=== PATIENT | female | born 1960 | race Caucasian/White ===

== ENCOUNTER 2017-12-17 19:37 | Inpatient (IN) | payer MEDICAID, SELFPAY ==
[2017-12-17 19:38] VITALS: BP 137/96; PULSE 116; RESP 28; TEMP 37.2; O2SAT 94; BMI 33.5
[2017-12-17 19:42] VITALS: O2SAT 96
--- NOTE | 2017-12-17 20:31 | EKG12_ITS ---
Test Reason : SOB Blood Pressure : / mmHG Vent. Rate : 103 BPM Atrial Rate : 103 BPM P-R Int : 152 ms QRS Dur : 084 ms QT Int : 358 ms P-R-T Axes : 036 103 039 degrees QTc Int : 468 ms Sinus tachycardia Low voltage QRS Borderline ECG Confirmed by EMILIA ROOT MD ([id number]), script editor LUCIO HAMILTON ([id number]) on 12/19/2017 3:46:05 PM Referred By: ELENA Confirmed By:EMILIA ROOT MD
--- NOTE | 2017-12-17 20:32 | CT_ITS ---
STUDY: CTA CHEST REASON FOR EXAM: Female, 57 years old. Shortness of breath and wheezing. RADIATION DOSAGE (If Supplied By Facility): CTDIvol = ( 17.96 ) mGy, DLP = ( 614.86 ) mGycm TECHNIQUE: The examination was performed with the intravenous administration of 75ML ml of Isovue 370 contrast material. Post-processing of the angiographic images was performed, with multiplanar reformation and 3D reconstruction. Individualized dose optimization techniques were used for this CT. COMPARISON: None. FINDINGS: Normal enhancement of the main pulmonary artery and right and left pulmonary arteries. Normal enhancement of the bilateral peripheral pulmonary arteries. There is no demonstrated pulmonary embolism. Normal thoracic aorta and visualized great vessels. There is no demonstrated aortic dissection. There are calcifications of the coronary arteries. Normal mediastinum. Normal hilar regions. Normal visualized trachea and bronchi. The lungs are hyper expanded, with flattening of the hemidiaphragms. Diffuse COPD related changes are present. Normal pleura. Normal chest wall structures. There are degenerative changes of thoracic spine. Normal visualized upper abdomen. CT/CTA Chest W/WO Contrast IMPRESSION: 1. No evidence of pulmonary embolism or aortic dissection. 2. Diffuse COPD changes with no evidence of focal consolidation. Electronically Signed: Tyrese Fajardo DO at 22:01 EDT , Service support ,
[2017-12-17 20:42] VITALS: BP 114/94; PULSE 108; RESP 22; O2SAT 95
[2017-12-17 20:55] LABS: Absolute Lymphocyte Count 0.95 X10^3/ul (0.83-4.51); Absolute Neutrophil Count 6.4 X10^3/uL (2.0-7.7); Basophil# 0.01 X10^3/uL; Basophil% 0.1 % (0-1); Eosinophil# 0.02 X10^3/uL; Eosinophils% 0.3 % (0-5); Hematocrit 36.7 % (37-47); Hemoglobin 11.9 g/dl (12.0-15.0); Lymphocyte # 0.95 X10^3/ul (4.0); Lymphocyte % 11.9 % (19-41); Mean Corp Hgb Conc 32.4 g/gl (32-36); Mean Corpuscular Volume 98.7 fL (81-99); Monocyte# 0.56 X10^3/uL; Neutrophil # 6.36 X10^3/uL (2.7-7.7); Neutrophil % 79.7 % (47-70); POSITIVE COUNT NO; POSITIVE DIFFERENTIAL NO; POSITIVE MORPHOLOGY NO; Platelet Count 200 K/mm3 (150-450); RBC Distribution Width CV 15.5 % (11.6-14.6); RBC Distribution Width SD 56.3 fl (35.1-43.9); Red Blood Count 3.72 M/mm3 (4.2-5.4)
[2017-12-17 21:04] LABS: International Normalized Ratio 0.9; Prothrombin Time (Protime)PT. 12.3 SECONDS (11.7-14.9)
[2017-12-17 21:17] LABS: Anion Gap 8 (5-15); BUN 14 mg/dL (7-18); BUN/Creat Ratio 14.3 RATIO (10-20); Chloride 109 mmol/L (98-107); Creatinine, Serum 0.98 mg/dL (0.55-1.02); EST Glomerular Filtration Rate 63 mL/min (>60); Est Glom Filt Rate - Afr Amer 76 mL/min (>60); Estimated Creatinine Clearance 48.94 ml/min; Glucose 166 mg/dL (74-106); Sodium Level 142 mmol/L (136-145)
[2017-12-17 21:51] VITALS: BP 130/89; PULSE 106; RESP 20; O2SAT 94
--- NOTE | 2017-12-17 22:15 | ED.VISSUMM ---
- ER Visit Summary Date of Service: 12/17/17 Chief Complaint: Shortness of breath and wheezing History of Present Illness: The patient is a 57 F who presents with shortness of breath and wheezing. She has been ill with a URI-like illness for about 1 month. She can planes of congestion rhinorrhea and nonproductive cough. She does have a history of COPD. She also has a history of CML and pulmonary embolism. She states she became acutely more short of breath about 2 hours prior to presentation. She has been on 3 rounds of prednisone and 2 different antibiotics in the last month. She last completed prednisone about 3 days ago. She denies any improvement. No fevers or vomiting. No chest pain. Physical Examination: Heart rate 116 respiratory rate 28 pulse ox 94% on 3 L Heart is regular rhythm tachycardia Patient is tachypneic with expiratory wheezing but does not have retractions and is not in distress Abdomen soft Alert Test Results: EKG shows sinus rhythm at a rate of 103. Laboratory studies essentially unremarkable. CTA of the chest was obtained which shows no evidence of PE or aortic dissection. Emergency Department Course and Treatment: Patient was given IV Solu-Medrol and oral doxycycline. She was given a DuoNeb. Concerned given that she has failed multiple attempts at outpatient treatment. Therefore I did feel she should be hospitalized. Treatment Plan: [] Disposition: Admit Impression: COPD exacerbation, failed outpatient treatment This note was generated with [employer] dictation software. It may contain incorrect words, spelling, and punctuation that were not noted in review of the chart prior to signing ED Disposition - Plan for ED Patient: Chief Complaint: Shortness of Breath Referrals: Jennifer Coelho NP-C [Primary Care Provider] -
[2017-12-17] MEDS: MethylPREDNISolone 125 MG/2 ML Vial IV (22:26)
[2017-12-17] MEDS: Doxycycline 100 MG CAPSULE PO (22:26)
[2017-12-17 22:29] VITALS: BP 134/98; PULSE 102; RESP 20; O2SAT 95
--- NOTE | 2017-12-17 22:35 | PCM.HP.STD ---
Problem List (1) HTN (hypertension) Status: Chronic (2) Fibromyalgia Status: Chronic (3) Nicotine abuse Status: Chronic (4) AYERS (dyspnea on exertion) Status: Acute (5) COPD with acute exacerbation Status: Acute (6) Poor compliance with medication Status: Chronic (7) Depression Status: Chronic (8) History of cardiac cath Status: Acute (9) History of cranial surgery Status: Acute Comment: due to closed fontanell (10) History of hysterectomy Status: Acute (11) History of hemorrhoidectomy Status: Acute (12) cataract surgery Status: Acute History of Present Illness Date of Admission: 12/17/17 Chief Complaint: shortness of breath The patient is a 57 year old female with a history of COPD presents to the ER with acute shortness of breath. She has been treated three times this past month with antibiotics and steroids for the same complaint. She , despite being on 3liters of home oxygen presented breathing at 28 times per minute. CTA was negative for PE. She is afebrile. Her laboratory studies are unremarkable. She has improved with breathing treatment, steroids and increased oxygen concentration. She will be admitted for further respiratory management. Past Medical History Past Medical History (Chronic Problems): Chronic Problems (Last Reviewed 11/29/17 @ 13:20 by Bridget Hernandez NP-C) HTN (hypertension) (Chronic) Fibromyalgia (Chronic) Nicotine abuse (Chronic) Sinusitis (Chronic) Seasonal allergies (Chronic) Stage 3 severe COPD by GOLD classification (Chronic) Chronic hypoxemic respiratory failure (Chronic) Ulcerative colitis (Chronic) Hx of smoking (Chronic) Fibromyalgia (Chronic) Mid back pain (Chronic) Carpal tunnel syndrome (Chronic) COPD (chronic obstructive pulmonary disease) (Chronic) Chronic respiratory failure, unspecified whether with hypoxia or hypercapnia (Chronic) Obesity (BMI 30.0-34.9) (Chronic) Poor compliance with medication (Chronic) CML (chronic myelocytic leukemia) (Chronic) DREW (generalized anxiety disorder) (Chronic) Emphysema of lung (Chronic) Depression (Chronic) Leukemia (Chronic) Allergies Penicillins Allergy (Severe, Verified 11/07/17 11:36) Hives azithromycin Adverse Reaction (Severe, Verified 11/07/17 11:36) Diarrhea codeine Adverse Reaction (Severe, Verified 11/07/17 11:36) Vomiting ondansetron HCl [From Zofran (as hydrochloride)] Adverse Reaction (Severe, Verified 11/07/17 11:36) Nausea pregabalin [From Lyrica] Adverse Reaction (Severe, Verified 11/07/17 11:36) i can't see propoxyphene napsylate [From Darvocet-N 100] Adverse Reaction (Severe, Verified 11/07/17 11:36) Vomiting Sulfa (Sulfonamide Antibiotics) Adverse Reaction (Verified 11/07/17 11:36) Abd cramps/diarrhea Home Medications: Ambulatory Orders Medication Instructions Recorded Albuterol Inhaler [Ventolin Hfa] 2 puff INHALATION Q4H 10/01/15 Albuterol Aerosols [Ventolin 2.5 mg INHALATION Q4H PRN PRN #100 12/09/15 Aerosols] vial.neb. NS BusPIRone [Buspar] 15 mg PO BID 01/29/16 Potassium Chloride [K-Dur] 20 meq PO BID 05/18/16 Budesonide/Formoterol 160/4.5 2 puff INHALATION BID 08/11/16 [Symbicort 160/4.5 Mcg Inhaler (SP)] Fluticasone 0.05% [Flonase Nasal 1 spray NASAL BID 08/11/16 [place]] ALPRAZolam [Xanax] 0.5 - 1 mg PO Q6H PRN 11/23/16 Oxycodone [Oxyir] 5 mg PO Q4H PRN PRN #20 tab 11/27/16 Ipratropium/Albuterol Sulfate 3 ml INHALATION Q6HWA.RT PRN 02/01/17 [Duoneb] Cetirizine HCl [Zyrtec] 10 mg PO DAILY 06/18/17 Diltiazem CD [Cardizem CD] 240 mg PO DAILY 06/18/17 Sertraline HCl [Zoloft] 75 mg PO DAILY 06/18/17 Prochlorperazine Maleate 10 mg PO Q6H PRN PRN #30 tab 07/25/17 Tiotropium [place] [Spiriva 4 gm IH DAILY 07/25/17 Respimat] Ibuprofen [Ibuprofen Ib] 200 mg PO Q6H PRN 08/22/17 Imatinib Mesylate [Gleevec] 400 mg PO DAILY 08/22/17 Furosemide [Lasix] 20 mg PO DAILY 09/19/17 Prednisone [Deltasone] 40 mg PO DAILY 09/19/17 prednisone 10 mg tablet 10 mg PO QDAY #30 tab 11/29/17 Surgical History: hysterectomy, - - Hemorrhoidectomy, 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 Psychiatric History: Anxiety 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 Denies: Cough, Sputum production Gastrointestinal: Denies: Abdominal Pain, Nausea, Vomiting Genitourinary: Denies: Dysuria Musculoskeletal: Denies: Joint Pain, Joint Tenderness Skin: Denies: Rash, Wounds Neurological: Denies: Numbness, Tingling, Focal weakness Psychiatric: Reports: Anxiety. Denies: Depression, Homicidal Ideations, Suicidal Ideations Hematologic/ Lymphatic: Denies: Easy Bruising, Easy Bleeding VTE Information - Inpt Only VTE Present on Admission: No VTE Mechan Device Prophylaxis: None VTE Pharm Prophylaxis ordered?: Yes - Physical Exam General: Alert, Oriented x3, Cooperative HEENT: Atraumatic, Normocephalic Neck: Supple Lungs: No rhonchi, No rales, Diminished, Tachypneic, Wheezes Cardiovascular: Regular rate, Normal S1, Normal S2, No murmurs, Tachycardic Abdomen: Bowel Sounds Present, Soft, Non Tender, Obese Extremities: No edema Skin: No rashes Musculoskeletal: No Tenderness to Palpation of Joints or Extremities Neurological: Neuro grossly intact Psych/Mental Status: Normal Affect, Appropriate Vital Signs Temp Pulse Resp BP Pulse Ox 99.0 F 102 H 20 H 134/98 H 95 12/17/17 19:38 12/17/17 22:29 12/17/17 22:29 12/17/17 22:29 12/17/17 22:29 Oxygen Flow Rate (L/min) 3 Oxygen Delivery Method Nasal Cannula Weight: 177 lb 5.79 oz Body Mass Index (BMI) 33.5 Laboratory Tests Past 24 Hrs 12/17/17 12/17/17 12/17/17 20:45 20:45 20:45 WBC 8.0 RBC 3.72 L Hgb 11.9 L Hct 36.7 L MCV 98.7 MCH 32.0 MCHC 32.4 RDW 15.5 H RDW Differential 56.3 H Plt Count 200 MPV 10.0 Immature Gran % (Auto) 1.000 H Neut % (Auto) 79.7 H Lymph % (Auto) 11.9 L [place] % (Auto) 7.0 Eos % (Auto) 0.3 Baso % (Auto) 0.1 Absolute Neuts (auto) 6.4 Absolute Lymphs (auto) 0.95 Total Counted Not Reportable PT 12.3 INR 0.9 Sodium 142 Potassium 4.0 Chloride 109 H Carbon Dioxide 25.0 Anion Gap 8 BUN 14 Creatinine 0.98 Estim Creat Clear Calc 48.94 Est GFR (MDRD) Af Amer 76 Est GFR (MDRD) Non-Af 63 BUN/Creatinine Ratio 14.3 Glucose 166 H Calcium 8.0 L Troponin I < 0.02 Assessment/Plan Chronic Problems (Last Reviewed 11/29/17 @ 13:20 by Bridget Hernandez, HAND PLEATER-C) HTN (hypertension) (Chronic) Fibromyalgia (Chronic) Nicotine abuse (Chronic) Sinusitis (Chronic) Seasonal allergies (Chronic) Stage 3 severe COPD by GOLD classification (Chronic) Chronic hypoxemic respiratory failure (Chronic) Ulcerative colitis (Chronic) Hx of smoking (Chronic) Fibromyalgia (Chronic) Mid back pain (Chronic) Carpal tunnel syndrome (Chronic) COPD (chronic obstructive pulmonary disease) (Chronic) Chronic respiratory failure, unspecified whether with hypoxia or hypercapnia (Chronic) Obesity (BMI 30.0-34.9) (Chronic) Poor compliance with medication (Chronic) CML (chronic myelocytic leukemia) (Chronic) DREW (generalized anxiety disorder) (Chronic) Emphysema of lung (Chronic) Depression (Chronic) Leukemia (Chronic) Acute condition - COPD exacerbation - plan admit to general medical floor - DuoNeb inh q 4hrs, Solumedrol 40mg iv q 6hrs, doxycycline 100mg bid - consult Dr Ridley in am (pt known to him) - CBC, BMP in am - continue routine home medications - LMWH for DVT prophylaxis - Oxygen per routine Code Visit Inpatient E&M: 21672 Init Hosp L3
--- NOTE | 2017-12-17 22:45 | HP.PCM_ITS ---
Problem List (1) HTN (hypertension) Status: Chronic (2) Fibromyalgia Status: Chronic (3) Nicotine abuse Status: Chronic (4) AYERS (dyspnea on exertion) Status: Acute (5) COPD with acute exacerbation Status: Acute (6) Poor compliance with medication Status: Chronic (7) Depression Status: Chronic (8) History of cardiac cath Status: Acute (9) History of cranial surgery Status: Acute Comment: due to closed fontanell (10) History of hysterectomy Status: Acute (11) History of hemorrhoidectomy Status: Acute (12) cataract surgery Status: Acute History of Present Illness Date of Admission: 12/17/17 Chief Complaint: shortness of breath The patient is a 57 year old female with a history of COPD presents to the ER with acute shortness of breath. She has been treated three times this past month with antibiotics and steroids for the same complaint. She , despite being on 3liters of home oxygen presented breathing at 28 times per minute. CTA was negative for PE. She is afebrile. Her laboratory studies are unremarkable. She has improved with breathing treatment, steroids and increased oxygen concentration. She will be admitted for further respiratory management. Past Medical History Past Medical History (Chronic Problems): Chronic Problems (Last Reviewed 11/29/17 @ 13:20 by Bridget Hernandez NP-C) HTN (hypertension) (Chronic) Fibromyalgia (Chronic) Nicotine abuse (Chronic) Sinusitis (Chronic) Seasonal allergies (Chronic) Stage 3 severe COPD by GOLD classification (Chronic) Chronic hypoxemic respiratory failure (Chronic) Ulcerative colitis (Chronic) Hx of smoking (Chronic) Fibromyalgia (Chronic) Mid back pain (Chronic) Carpal tunnel syndrome (Chronic) COPD (chronic obstructive pulmonary disease) (Chronic) Chronic respiratory failure, unspecified whether with hypoxia or hypercapnia ( Chronic) Obesity (BMI 30.0-34.9) (Chronic) Poor compliance with medication (Chronic) CML (chronic myelocytic leukemia) (Chronic) DREW (generalized anxiety disorder) (Chronic) Emphysema of lung (Chronic) Depression (Chronic) Leukemia (Chronic) Allergies Penicillins Allergy (Severe, Verified 11/07/17 11:36) Hives azithromycin Adverse Reaction (Severe, Verified 11/07/17 11:36) Diarrhea codeine Adverse Reaction (Severe, Verified 11/07/17 11:36) Vomiting ondansetron HCl [From Zofran (as hydrochloride)] Adverse Reaction (Severe, Verified 11/07/17 11:36) Nausea pregabalin [From Lyrica] Adverse Reaction (Severe, Verified 11/07/17 11:36) i can't see propoxyphene napsylate [From Darvocet-N 100] Adverse Reaction (Severe, Verified 11/07/17 11:36) Vomiting Sulfa (Sulfonamide Antibiotics) Adverse Reaction (Verified 11/07/17 11:36) Abd cramps/diarrhea Home Medications: Ambulatory Orders Medication Instructions Recorded Albuterol Inhaler [Ventolin Hfa] 2 puff INHALATION Q4H 10/01/15 Albuterol Aerosols [Ventolin 2.5 mg INHALATION Q4H PRN PRN #100 12/09/15 Aerosols] vial.neb. NS BusPIRone [Buspar] 15 mg PO BID 01/29/16 Potassium Chloride [K-Dur] 20 meq PO BID 05/18/16 Budesonide/Formoterol 160/4.5 2 puff INHALATION BID 08/11/16 [Symbicort 160/4.5 Mcg Inhaler (SP)] Fluticasone 0.05% [Flonase Nasal 1 spray NASAL BID 08/11/16 [place]] ALPRAZolam [Xanax] 0.5 - 1 mg PO Q6H PRN 11/23/16 Oxycodone [Oxyir] 5 mg PO Q4H PRN PRN #20 tab 11/27/16 Ipratropium/Albuterol Sulfate 3 ml INHALATION Q6HWA.RT PRN 02/01/17 [Duoneb] Cetirizine HCl [Zyrtec] 10 mg PO DAILY 06/18/17 Diltiazem CD [Cardizem CD] 240 mg PO DAILY 06/18/17 Sertraline HCl [Zoloft] 75 mg PO DAILY 06/18/17 Prochlorperazine Maleate 10 mg PO Q6H PRN PRN #30 tab 07/25/17 Tiotropium [place] [Spiriva 4 gm IH DAILY 07/25/17 Respimat] Ibuprofen [Ibuprofen Ib] 200 mg PO Q6H PRN 08/22/17 Imatinib Mesylate [Gleevec] 400 mg PO DAILY 08/22/17 Furosemide [Lasix] 20 mg PO DAILY 09/19/17 Prednisone [Deltasone] 40 mg PO DAILY 09/19/17 prednisone 10 mg tablet 10 mg PO QDAY #30 tab 11/29/17 Surgical History: hysterectomy, - - Hemorrhoidectomy, 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 Psychiatric History: Anxiety 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 Denies: Cough, Sputum production Gastrointestinal: Denies: Abdominal Pain, Nausea, Vomiting Genitourinary: Denies: Dysuria Musculoskeletal: Denies: Joint Pain, Joint Tenderness Skin: Denies: Rash, Wounds Neurological: Denies: Numbness, Tingling, Focal weakness Psychiatric: Reports: Anxiety. Denies: Depression, Homicidal Ideations, Suicidal Ideations Hematologic/ Lymphatic: Denies: Easy Bruising, Easy Bleeding VTE Information - Inpt Only VTE Present on Admission: No VTE Mechan Device Prophylaxis: None VTE Pharm Prophylaxis ordered?: Yes - Physical Exam General: Alert, Oriented x3, Cooperative HEENT: Atraumatic, Normocephalic Neck: Supple Lungs: No rhonchi, No rales, Diminished, Tachypneic, Wheezes Cardiovascular: Regular rate, Normal S1, Normal S2, No murmurs, Tachycardic Abdomen: Bowel Sounds Present, Soft, Non Tender, Obese Extremities: No edema Skin: No rashes Musculoskeletal: No Tenderness to Palpation of Joints or Extremities Neurological: Neuro grossly intact Psych/Mental Status: Normal Affect, Appropriate Vital Signs Temp Pulse Resp BP Pulse Ox 99.0 F 102 H 20 H 134/98 H 95 12/17/17 19:38 12/17/17 22:29 12/17/17 22:29 12/17/17 22:29 12/17/17 22:29 Oxygen Flow Rate (L/min) 3 Oxygen Delivery Method Nasal Cannula Weight: 177 lb 5.79 oz Body Mass Index (BMI) 33.5 Laboratory Tests Past 24 Hrs 12/17/17 12/17/17 12/17/17 20:45 20:45 20:45 WBC 8.0 RBC 3.72 L Hgb 11.9 L Hct 36.7 L MCV 98.7 MCH 32.0 MCHC 32.4 RDW 15.5 H RDW Differential 56.3 H Plt Count 200 MPV 10.0 Immature Gran % (Auto) 1.000 H Neut % (Auto) 79.7 H Lymph % (Auto) 11.9 L [place] % (Auto) 7.0 Eos % (Auto) 0.3 Baso % (Auto) 0.1 Absolute Neuts (auto) 6.4 Absolute Lymphs (auto) 0.95 Total Counted Not Reportable PT 12.3 INR 0.9 Sodium 142 Potassium 4.0 Chloride 109 H Carbon Dioxide 25.0 Anion Gap 8 BUN 14 Creatinine 0.98 Estim Creat Clear Calc 48.94 Est GFR (MDRD) Af Amer 76 Est GFR (MDRD) Non-Af 63 BUN/Creatinine Ratio 14.3 Glucose 166 H Calcium 8.0 L Troponin I < 0.02 Assessment/Plan Chronic Problems (Last Reviewed 11/29/17 @ 13:20 by Bridget Hernandez, TOURIST AGENT-C) HTN (hypertension) (Chronic) Fibromyalgia (Chronic) Nicotine abuse (Chronic) Sinusitis (Chronic) Seasonal allergies (Chronic) Stage 3 severe COPD by GOLD classification (Chronic) Chronic hypoxemic respiratory failure (Chronic) Ulcerative colitis (Chronic) Hx of smoking (Chronic) Fibromyalgia (Chronic) Mid back pain (Chronic) Carpal tunnel syndrome (Chronic) COPD (chronic obstructive pulmonary disease) (Chronic) Chronic respiratory failure, unspecified whether with hypoxia or hypercapnia ( Chronic) Obesity (BMI 30.0-34.9) (Chronic) Poor compliance with medication (Chronic) CML (chronic myelocytic leukemia) (Chronic) DREW (generalized anxiety disorder) (Chronic) Emphysema of lung (Chronic) Depression (Chronic) Leukemia (Chronic) Acute condition - COPD exacerbation - plan admit to general medical floor - DuoNeb inh q 4hrs, Solumedrol 40mg iv q 6hrs, doxycycline 100mg bid - consult Dr Ridley in am (pt known to him) - CBC, BMP in am - continue routine home medications - LMWH for DVT prophylaxis - Oxygen per routine Code Visit Inpatient E&M: 19880 Init Hosp L3
[2017-12-18] VITALS (11 sets, daily range): BP systolic 104–134; BP diastolic 71–93; PULSE 99–118; RESP 16–20; TEMP 36.7–37.2; O2SAT 94–99; BMI 34.4
[2017-12-18] MEDS: ALPRAZolam 0.5 MG Tablet PO ×4 (01:00→22:33)
[2017-12-18] MEDS: Ipratropium/Albuterol Sulfate 3 ML AMPUL.NEB INHALATION ×5 (03:00→18:58)
[2017-12-18] MEDS: 0.9% NaCl Peripheral Flush Adult/Peds IV ×3 (05:03→22:05)
[2017-12-18 05:38] LABS: Absolute Lymphocyte Count 0.54 X10^3/ul (0.83-4.51); Absolute Neutrophil Count 7.9 X10^3/uL (2.0-7.7); Basophil# 0.01 X10^3/uL; Basophil% 0.1 % (0-1); Hematocrit 36.4 % (37-47); Hemoglobin 11.8 g/dl (12.0-15.0); Lymphocyte # 0.54 X10^3/ul (4.0); Lymphocyte % 6.3 % (19-41); Mean Corp Hgb Conc 32.4 g/gl (32-36); Mean Corpuscular Hgb 32.3 pg (27.0-32.0); Mean Corpuscular Volume 99.7 fL (81-99); Mean Platelet Vol. 9.3 fl (6.2-12.0); Monocyte# 0.06 X10^3/uL; Monocyte% 0.7 % (0-10); Neutrophil # 7.85 X10^3/uL (2.7-7.7); Neutrophil % 92.2 % (47-70); Platelet Count 187 K/mm3 (150-450); RBC Distribution Width CV 15.1 % (11.6-14.6); RBC Distribution Width SD 53.6 fl (35.1-43.9); Red Blood Count 3.65 M/mm3 (4.2-5.4); White Blood Count 8.5 K/mm3 (4.4-11.0)
[2017-12-18 05:50] LABS: Differential Indicated SCAN CRITERIA MET; POSITIVE COUNT NO; POSITIVE DIFFERENTIAL YES; POSITIVE MORPHOLOGY NO
[2017-12-18 07:40] LABS: AST(SGOT) 10 U/L (15-37); Alanine Aminotransfer ALT/SGPT 16 U/L (13-56); Albumin, Serum 2.9 g/dL (3.2-5.0); Alkaline Phosphatase 68 U/L (45-117); Anion Gap 11 (5-15); BUN 11 mg/dL (7-18); BUN/Creat Ratio 12.3 RATIO (10-20); Calcium,Total 7.5 mg/dL (8.5-10.1); Chloride 109 mmol/L (98-107); Creatinine, Serum 0.89 mg/dL (0.55-1.02); EST Glomerular Filtration Rate 70 mL/min (>60); Est Glom Filt Rate - Afr Amer 84 mL/min (>60); Estimated Creatinine Clearance 53.89 ml/min; Globulin 2.9 g/dL (2.2-4.2); Glucose 213 mg/dL (74-106); Potassium 3.9 mmol/L (3.5-5.1); Protein, Total 5.8 g/dL (6.4-8.2); Sodium Level 143 mmol/L (136-145)
--- NOTE | 2017-12-18 08:27 | CON.PCM_ITS ---
Problem List (1) COPD with acute exacerbation Status: Acute (2) Chronic hypoxemic respiratory failure Status: Acute (3) HTN (hypertension) Status: Chronic (4) Nicotine abuse Status: Chronic (5) Stage 3 severe COPD by GOLD classification Status: Chronic (6) Fibromyalgia Status: Chronic (7) Seasonal allergies Status: Chronic (8) Ulcerative colitis Status: Chronic (9) CML (chronic myelocytic leukemia) Status: Chronic (10) DREW (generalized anxiety disorder) Status: Chronic (11) Depression Status: Chronic Reason for Consult Date of Consultation: 12/18/17 Reason for Consultation: COPD exacerbation, failed outpatient therapy History of Present Illness: The patient is a 57 year old F with a past medical history as below, well known to the pulmonary clinic and Dr. Ridley, presented to the ER via EMS on 12/17/17 with complaints of increased shortness of breath. Patient has been somewhat ill for the last 1 month with upper respiratory symptoms and was last seen in the pulmonary clinic on 11/29/17 for COPD exacerbation. Previously she was placed on Solu-Cortef and antibiotics from her Palliative Care provider. She is on a maintenance dose of 10 mg of prednisone for her severe COPD. She was placed on a taper with some improvement, but felt worse a few days after its completion. Over the last 24-48 hours, she has been increasingly short of breath especially with exertion. Current inhaler regimen includes Symbicort, Spiriva, DuoNeb aerosols, PRN albuterol nebulizers, and chronic prednisone of 10 mg daily. Patient denies any recent sick contacts. She denies fevers, chills or night sweats. No hemoptysis. She does complain of increased sputum production of clear to yellow. She has had some nausea with no vomiting. She denies any increase in edema and notes she takes Lasix if she becomes too puffy. On presentation to the emergency department, the patient was noted to be afebrile ( 99.0?F), tachycardic and hemodynamically stable. She was maintaining saturations at 94% on her baseline oxygen requirement of 3L/NC. Patient is on oral chemo regimen for chronic myelocytic leukemia. Initial laboratory evaluation revealed no leukocytosis. Patient is slightly anemic with a hemoglobin of 11.8 and hematocrit 36.4. ANC 7.9. Chemistry profile revealed a levator chloride 109 and glucose of 213 with calcium of 7.5. Troponin was negative. Albumin low at 2.9. CTA of the chest revealed no evidence of PE or dissection, there was diffuse COPD changes with no evidence of focal consolidation. While in the emergency department, the patient received aerosol treatments, IV steroids and antibiotics. She was subsequently admitted to the medical-surgical unit for ongoing management. The patient's last surface echocardiogram completed in February 2016 revealed normal LV size and function with an ejection fraction of 55%. Pulmonary artery systolic pressure was estimated to be 32 mmHg. Patient's last PFTs were done in July 2017: FVC is 74 % of predicted, FEV1 is 44 % of predicted, FEV1/FVC is 47% of predicted. Her last appointment with her palliative care physician was on 11/27/17. Her Claritin was changed to Singulair secondary to rhinorrhea, noted likely side effect of Gleevec. Benadryl was also added. Past Medical History Past Medical History (Chronic Problems): Chronic Problems (Last Updated 12/18/17 @ 09:44 by Ivon Woodwrad, [employer]) HTN (hypertension) (Chronic) Fibromyalgia (Chronic) Nicotine abuse (Chronic) Sinusitis (Chronic) Seasonal allergies (Chronic) Stage 3 severe COPD by GOLD classification (Chronic) Ulcerative colitis (Chronic) Hx of smoking (Chronic) Mid back pain (Chronic) Carpal tunnel syndrome (Chronic) Obesity (BMI 30.0-34.9) (Chronic) Poor compliance with medication (Chronic) Educational circumstance (Chronic) CML (chronic myelocytic leukemia) (Chronic) DREW (generalized anxiety disorder) (Chronic) Emphysema of lung (Chronic) Depression (Chronic) History of cardiac cath (Chronic) 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 History of hysterectomy (Chronic) History of hemorrhoidectomy (Chronic) cataract surgery (Chronic) Allergies Penicillins Allergy (Severe, Verified 11/07/17 11:36) Hives azithromycin Adverse Reaction (Severe, Verified 11/07/17 11:36) Diarrhea codeine Adverse Reaction (Severe, Verified 11/07/17 11:36) Vomiting ondansetron HCl [From Zofran (as hydrochloride)] Adverse Reaction (Severe, Verified 11/07/17 11:36) Nausea pregabalin [From Lyrica] Adverse Reaction (Severe, Verified 11/07/17 11:36) i can't see propoxyphene napsylate [From Darvocet-N 100] Adverse Reaction (Severe, Verified 11/07/17 11:36) Vomiting Sulfa (Sulfonamide Antibiotics) Adverse Reaction (Verified 11/07/17 11:36) Abd cramps/diarrhea Home Medications: Ambulatory Orders Medication Instructions Recorded Albuterol Inhaler [Ventolin Hfa] 2 puff INHALATION Q4H 10/01/15 Albuterol Aerosols [Ventolin 2.5 mg INHALATION Q4H PRN PRN #100 12/09/15 Aerosols] vial.neb. NS BusPIRone [Buspar] 15 mg PO BID 01/29/16 Potassium Chloride [K-Dur] 20 meq PO BID 05/18/16 Budesonide/Formoterol 160/4.5 2 puff INHALATION BID 08/11/16 [Symbicort 160/4.5 Mcg Inhaler (SP)] Fluticasone 0.05% [Flonase Nasal 1 spray NASAL BID 08/11/16 [place]] ALPRAZolam [Xanax] 0.5 - 1 mg PO Q6H PRN 11/23/16 Oxycodone [Oxyir] 5 mg PO Q4H PRN PRN #20 tab 11/27/16 Ipratropium/Albuterol Sulfate 3 ml INHALATION Q6HWA.RT PRN 02/01/17 [Duoneb] Cetirizine HCl [Zyrtec] 10 mg PO DAILY 06/18/17 Diltiazem CD [Cardizem CD] 240 mg PO DAILY 06/18/17 Sertraline HCl [Zoloft] 75 mg PO DAILY 06/18/17 Prochlorperazine Maleate 10 mg PO Q6H PRN PRN #30 tab 07/25/17 Tiotropium [place] [Spiriva 4 gm IH DAILY 07/25/17 Respimat] Ibuprofen [Ibuprofen Ib] 200 mg PO Q6H PRN 08/22/17 Imatinib Mesylate [Gleevec] 400 mg PO DAILY 08/22/17 Furosemide [Lasix] 20 mg PO DAILY PRN 09/19/17 Prednisone [Deltasone] 40 mg PO DAILY 09/19/17 prednisone 10 mg tablet 10 mg PO QDAY #30 tab 11/29/17 Surgical History: hysterectomy, - - Hemorrhoidectomy, 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 Psychiatric History: Anxiety SENIOR MATERIALS PLANNER History: No pertinent SENIOR MATERIALS PLANNER history Lives: Alone, - - has HH Smoking Status: Former smoker Tobacco Use: Non-smoker Alcohol: None Drugs: None - *Family History Maternal History Items: - - mother with ovarian cancer; denies family history of any blood disorders or blood cancers Paternal History Items: Diabetes, - - father was exposed from agent orange Review of Systems Constitutional: Reports: Weakness, Weight Change - gained 20# in last 2 years, Fatigue. Denies: Anorexia, Chills, Fever, Night Sweats, Malaise Eyes: Denies: Blurred vision, Conjunctivae Inflammation, Redness, Vision Change HEENT: Reports: Nasal Congestion, Post Nasal Drip, Sinus Congestion, Sinus Drainage. Denies: Difficulty Hearing, Difficulty Swallowing, Dysphasia, Head Aches, Nasal bleeding, Sore Throat Cardiovascular: Reports: Orthopnea. Denies: Chest Pain, Chest Tightness, Edema , Light Headedness, Palpitations, Paroxysmal Noc. Dyspnea, Syncope Respiratory: Reports: Cough, Shortness of breath at rest, Shortness of breath upon exertion, Sputum production - clear to yellow, Wheezing. Denies: Hemoptysis Gastrointestinal: Reports: Nausea. Denies: Abdominal Pain, Constipation, Diarrhea, Dyspepsia, Hematemesis, Hematochezia, Melena, Vomiting Genitourinary: Denies: Dysuria, Frequency, Hematuria, Retention Gynecological: Denies: Breast symptoms Musculoskeletal: Reports: Back Pain - Chronic, Muscle pain - Chronic, fibromyalgia. Denies: Neck Pain Skin: Denies: Dryness, Pruritis, Rash, Wounds Neurological: Denies: Balance problems, Change in Speech, Confusion, Difficulty swallowing, Focal weakness, Headaches, Numbness, Tingling, Tremor, Seizures Psychiatric: Reports: Anxiety, Depression. Denies: Suicidal Ideations Endocrine: Denies: Change in Body Habitus, Polydipsia, Polyuria Hematologic/ Lymphatic: Reports: Adenopathy, Anemia, Easy Bruising, Easy Bleeding, Hx of blood clot Subjective: The patient was seen and examined. She is resting in bed comfortably watching TV. She denies any current shortness of breath except with exertion. Her breathing is overall improved since arrival to the ER. She is maintaining appropriate saturations on 3 L of oxygen. She does have a persistent cough with occasional sputum production. Objective: Clinical Impression(s) from Imaging Studies Chest CTA 03/12/18 20:32 IMPRESSION: 1. No evidence of pulmonary embolism or aortic dissection. 2. Diffuse COPD changes with no evidence of focal consolidation. Electronically Signed: Tyrese Fajardo DO at 22:01 EDT , Service support , - Physical Exam General: Alert, Oriented x3, Cooperative, No apparent distress, Well developed, Well nourished, - - No conversational dyspnea HEENT: Atraumatic, Normocephalic, - - walker face Oral: Moist Mucosa, No Gingival or Mucosal Lesions/ Ulcerations Neck: Supple, No JVD, Trachea Midline, - - puffiness to supraclavicular area bilaterally Lungs: - - Diminished throughout with expiratory wheeze Cardiovascular: Regular rate, Regular Rhythm, Normal S1, Normal S2, No murmurs, No rub noted, No Gallop Abdomen: Bowel Sounds Present, Soft, Non Tender, Distended Extremities: No clubbing, No cyanosis, No edema, Capillary Refill Less than 3 Seconds Skin: No rashes, No breakdown Musculoskeletal: No Tenderness to Palpation of Joints or Extremities Lymphatic: Cervical Adenopathy Neurological: Cranial nerves II-XII grossly intact, Neuro grossly intact, Motor Exam 5/5 strength throughout Psych/Mental Status: Alert and oriented to time, place, person, mood and affect Vital Signs Temp Pulse Resp BP Pulse Ox 98.7 F 102 H 18 125/81 H 94 12/18/17 05:00 12/18/17 07:42 12/18/17 07:42 12/18/17 05:00 12/18/17 07:42 Oxygen Flow Rate (L/min) 3.5 Oxygen Delivery Method Nasal Cannula Weight: 185 lb 5 oz Body Mass Index (BMI) 34.4 Intake and Output for Last 24 Hours 12/16/17 12/17/17 12/18/17 23:59 23:59 23:59 Intake Total 240 / 240 Balance 240 / 240 Laboratory Tests Past 24 Hrs 12/18/17 12/18/17 05:08 05:08 WBC 8.5 RBC 3.65 L Hgb 11.8 L Hct 36.4 L MCV 99.7 H MCH 32.3 H MCHC 32.4 RDW 15.1 H RDW Differential 53.6 H Plt Count 187 MPV 9.3 Immature Gran % (Auto) 0.700 Neut % (Auto) 92.2 H Lymph % (Auto) 6.3 L Glenn % (Auto) 0.7 Eos % (Auto) 0.0 Baso % (Auto) 0.1 Absolute Neuts (auto) 7.9 H Absolute Lymphs (auto) 0.54 L Total Counted Not Reportable Sodium 143 Potassium 3.9 Chloride 109 H Carbon Dioxide 23.0 Anion Gap 11 BUN 11 Creatinine 0.89 Estim Creat Clear Calc 53.89 Est GFR (MDRD) Af Amer 84 Est GFR (MDRD) Non-Af 70 BUN/Creatinine Ratio 12.3 Glucose 213 H Calcium 7.5 L Total Bilirubin 0.30 AST 10 L ALT 16 Alkaline Phosphatase 68 Total Protein 5.8 L Albumin 2.9 L Globulin 2.9 Albumin/Globulin Ratio 1.0 Assessment/Plan RECOMMENDATIONS 1. Wean oxygen supplementation to keep saturations 88-92%. 2. Encourage incentive spirometer 3. Increase activity as tolerated 4. Continue scheduled aerosols and IV steroids 5. Send sputum culture if cough becomes more productive 6. Check respiratory viral panel 7. Ambulatory pulse ox prior to discharge 8. Follow-up in the pulmonary clinic after discharge IMPRESSIONS 1. Acute on chronic respiratory failure likely secondary to COPD exacerbation Baseline oxygen requirement of 3 L continuously. Patient is currently on 4 L and saturating in the low to mid 90s. CTA of the chest with no indication of PE or dissection. Endorses diffuse COPD related changes. No infiltrate identified and no leukocytosis. Patient is on immunosuppressive therapy for CML. No fevers or chills. Continue scheduled aerosol treatments and IV steroids for now. Patient can likely be transitioned to prednisone beginning tomorrow if she continues to improve. Encourage incentive spirometer and increase activity as tolerated. Patient should have a walking oximetry prior to consideration for discharge from the hospital. She can follow-up in the pulmonary clinic in 2 weeks. 2. Anxiety/depression/hypertension/CML/fibromyalgia/ulcerative colitis/tobacco abuse, in remission Complicates care, management, recovery, and prognosis. Continue home medications as indicated. Thank you for the opportunity to participate in this patient's care, please do not hesitate contact us with any further questions or concerns. This note was generated with [employer] software. It may contain incorrect words, spelling, and punctuation that were not noted in checking the note before signing.
[2017-12-18] MEDS: Enoxaparin 40 MG/0.4 ML Syringe SC (09:37)
[2017-12-18] MEDS: Sertraline 50 MG Tablet 75 MG PO (09:38)
[2017-12-18] MEDS: Fluticasone 0.05% 1 SPRAY NASAL.SRY NASAL ×2 (09:38→22:05)
[2017-12-18] MEDS: dilTIAZem CD 240 MG Capsule PO (09:38)
[2017-12-18] MEDS: Furosemide 20 MG Tablet PO (09:38)
[2017-12-18] MEDS: Loratadine 10 MG Tablet PO (09:38)
--- NOTE | 2017-12-18 10:00 | PN_ITS ---
Subjective: Patient is a 57-year-old lady with history of chronic hypoxic respiratory failure secondary to COPD on baseline home O2 who presented with progressive shortness of breath. Assessment was consistent with COPD exacerbation and admitted to regular nursing floor where patient is currently being managed. Objective: GENERAL: cooperative HEENT: Clear conjunctiva, moist oral mucosa NECK; supple, normal thyroid, no distended JVD. CHEST: Diminished to auscultation bilaterally, HEART: Regular S1 S2, tachycardic ABDOMEN: soft, non-tender, normoactive bowel sounds, RECTAL: deferred EXTREMITIES: No edema, no clubbing, no cyanosis. MEDICAL OFFICE ASST: Awake, alert and oriented to time, place and person, SKIN: Some bruises upper chest Vitals/I&O's: Vital Signs Temp Pulse Resp BP Pulse Ox 98.5 F 105 H 20 H 115/93 H 94 12/18/17 09:28 12/18/17 09:28 12/18/17 09:28 12/18/17 09:28 12/18/17 09:28 Oxygen Flow Rate (L/min) 3.5 Oxygen Delivery Method Nasal Cannula Weight: 84.056 kg Body Mass Index (BMI) 34.4 Intake and Output for Last 24 Hours 12/16/17 12/17/17 12/18/17 23:59 23:59 23:59 Intake Total 240 / 240 Balance 240 / 240 Laboratory Results 12/18/17 05:08: WBC 8.5, RBC 3.65 L, Hgb 11.8 L, Hct 36.4 L, MCV 99.7 H, MCH 32.3 H, MCHC 32.4, RDW 15.1 H, RDW Differential 53.6 H, Plt Count 187, MPV 9.3, Immature Gran % (Auto) 0.700, Neut % (Auto) 92.2 H, Lymph % (Auto) 6.3 L, [place] % (Auto) 0.7, Eos % (Auto) 0.0, Baso % (Auto) 0.1, Absolute Neuts (auto) 7.9 H, Absolute Lymphs (auto) 0.54 L, Total Counted Not Reportable 12/18/17 05:08: Sodium 143, Potassium 3.9, Chloride 109 H, Carbon Dioxide 23.0, Anion Gap 11, BUN 11, Creatinine 0.89, Estim Creat Clear Calc 53.89, Est GFR ( MDRD) Af Amer 84, Est GFR (MDRD) Non-Af 70, BUN/Creatinine Ratio 12.3, Glucose 213 H, Calcium 7.5 L, Total Bilirubin 0.30, AST 10 L, ALT 16, Alkaline Phosphatase 68, Total Protein 5.8 L, Albumin 2.9 L, Globulin 2.9, Albumin/ Globulin Ratio 1.0 Current Medications Albuterol/Ipratropium (Duoneb) 3 ml INHALATION Q4H.RT [facility] Last Admin: 12/18/17 07:41 Dose: 3 ml Alprazolam (Xanax) 0.5 mg PO Q6H PRN PRN PRN Reason: ANXIETY Last Admin: 12/18/17 09:37 Dose: 0.5 mg Buspirone HCl (Buspirone Hcl) 15 mg PO BID [facility] Last Admin: 12/18/17 09:38 Dose: 15 mg Diltiazem HCl (Cardizem Cd) 240 mg PO DAILY [facility] Last Admin: 12/18/17 09:38 Dose: 240 mg Doxycycline Monohydrate (Doxycycline) 100 mg PO BID [facility] Enoxaparin Sodium (Lovenox) 40 mg SC DAILY@1000 [facility] Last Admin: 12/18/17 09:37 Dose: 40 mg Fluticasone Propionate (Flonase Nasal [place]) 1 spray NASAL BID [facility] Last Admin: 12/18/17 09:38 Dose: 1 spray Furosemide (Lasix) 20 mg PO DAILY [facility] Last Admin: 12/18/17 09:38 Dose: 20 mg Sodium Chloride () 250 mls @ 15 mls/hr IV .[id number] PRN PRN Reason: SALINE FLUSH Ibuprofen (Motrin) 200 mg PO Q6H PRN PRN PRN Reason: PAIN Imatinib Mesylate (Gleevec) 400 mg PO DAILY [facility] Loratadine (Claritin) 10 mg PO DAILY [facility] Last Admin: 12/18/17 09:38 Dose: 10 mg Magnesium Hydroxide (Milk Of Magnesia) 30 ml PO DAILY PRN PRN PRN Reason: Constipation Methylprednisolone (Solu-Medrol) 40 mg IV Q8 [facility] Last Admin: 12/18/17 05:03 Dose: 40 mg Oxycodone HCl (Oxyir) 5 mg PO Q4H PRN PRN PRN Reason: Moderate Pain (pain scale 4-5) Potassium Chloride (K-Dur) 20 meq PO BIDCM [facility] Last Admin: 12/18/17 09:38 Dose: 20 meq Prochlorperazine Maleate (Compazine) 10 mg PO Q6H PRN PRN PRN Reason: NAUSEA Sertraline HCl (Zoloft) 75 mg PO DAILY [facility] Last Admin: 12/18/17 09:38 Dose: 75 mg Sodium Chloride () 5 - 30 ml IV UD PRN PRN Reason: SALINE FLUSH Last Admin: 12/18/17 05:03 Dose: 20 ml Assessment/Plan Patient is a 57-year-old lady with history of chronic hypoxic respiratory failure secondary to COPD on baseline home O2 who presented with progressive shortness of breath. Assessment was consistent with COPD exacerbation and admitted to regular nursing floor where patient is currently being managed. 1. COPD exacerbation: Placed on aerosols, steroids and antibiotics. Oxygen titrated to keep pulse ox >92%.. Patient was seen in consultation by Dr. Brenden gooden with pulmonary medicine case discussed with him. 2. Hypertension-blood pressure controlled, home medications continued with dose adjustment as needed 3. Chronic myeloid leukemia patient is on Gleevec; currently stable followed by oncology as outpatient 4. Depression with anxiety. Patient is on SSRI 5. History of of pulmonary embolism. Patient was treated with Coumadin for 6 months. 6. . Ulcerative colitis by history: Remains in remission 7. Chronic sinus tachycardia 8. Obesity with BMI of 34.4: Weight loss advised 9. DVT prophylaxis SC Lovenox 10. Chronic hypoxic respiratory failure secondary to COPD patient is on baseline home O2 Code Visit Inpatient E&M: [id number] [facility] Hosp L3
--- NOTE | 2017-12-18 10:08 | NURSING ---
pt goes through [facility] phone # [phone] fax number # [phone] pt has an aide 2 times a week , and nurse 1 time a week
--- NOTE | 2017-12-18 11:06 | CASEMGMT ---
ESTEPHANIA JUNIOR Face to Face with patient for initial transition planning/care coordination assessment. RN VERNON introduced self and role at [facility]. Patient sitting in chair, alert and oriented. Patient willing to participate in assessment and is able to answer all questions appropriately. Care providers, pharmacy, and demographics verified. See link attached. Patient wishes to discharge home with [facility]. Patient states she has no further needs or concerns at this time. CM to follow for discharge planning needs that may arise. Disposition Plan: Patient to discharge home with [facility] and follow-up plans in place.
[2017-12-18] MEDS: Doxycycline 100 MG CAPSULE PO ×2 (11:37→22:05)
[2017-12-18] MEDS: proCHLORPERazine 5 MG Tablet 10 MG PO (13:15)
[2017-12-18] MEDS: Ibuprofen 200 MG Tablet PO (20:47)
[2017-12-19] VITALS (14 sets, daily range): BP systolic 115–133; BP diastolic 73–89; PULSE 98–128; RESP 16–19; TEMP 35.9–37.5; O2SAT 92–96
[2017-12-19] MEDS: ALPRAZolam 0.5 MG Tablet PO ×2 (04:38→21:08)
[2017-12-19] MEDS: 0.9% NaCl Peripheral Flush Adult/Peds IV (05:12)
[2017-12-19] MEDS: Ipratropium/Albuterol Sulfate 3 ML AMPUL.NEB INHALATION ×5 (07:24→23:50)
[2017-12-19] MEDS: Loratadine 10 MG Tablet PO (09:10)
[2017-12-19] MEDS: dilTIAZem CD 240 MG Capsule PO (09:10)
[2017-12-19] MEDS: Fluticasone 0.05% 1 SPRAY NASAL.SRY NASAL ×2 (09:11→21:01)
[2017-12-19] MEDS: Doxycycline 100 MG CAPSULE PO ×2 (09:11→21:01)
[2017-12-19] MEDS: Furosemide 20 MG Tablet PO (09:11)
[2017-12-19] MEDS: Sertraline 50 MG Tablet 75 MG PO (09:12)
[2017-12-19] MEDS: Enoxaparin 40 MG/0.4 ML Syringe SC (09:19)
--- NOTE | 2017-12-19 09:29 | PCM.PN.HOSP ---
Subjective: Patient's condition somewhat improved Objective: GENERAL: cooperative HEENT: Clear conjunctiva, moist oral mucosa NECK; supple, normal thyroid, no distended JVD. CHEST: Diminished to auscultation bilaterally, HEART: Regular S1 S2, tachycardic ABDOMEN: soft, non-tender, normoactive bowel sounds, RECTAL: deferred EXTREMITIES: No edema, no clubbing, no cyanosis. [employer] SUPERVISOR: Awake, alert and oriented to time, place and person, SKIN: Some bruises upper chest Vitals/I&O's: Vital Signs Temp Pulse Resp BP Pulse Ox 98.9 F 103 H 18 130/89 H 92 12/19/17 08:46 12/19/17 08:46 12/19/17 08:46 12/19/17 08:46 12/19/17 08:46 Oxygen Flow Rate (L/min) 3 Oxygen Delivery Method Nasal Cannula Weight: 84 kg Body Mass Index (BMI) 34.4 Intake and Output for Last 24 Hours 12/17/17 12/18/17 12/19/17 23:59 23:59 23:59 Intake Total 1440 / 1440 240 / 240 Balance 1440 / 1440 240 / 240 Microbiology Past 72 Hours 12/18/17 11:06 Mucosa - Nose Respiratory Panel (PCR) - Final Current Medications Albuterol/Ipratropium (Duoneb) 3 ml INHALATION Q4H.RT [facility] Last Admin: 12/19/17 07:24 Dose: 3 ml Alprazolam (Xanax) 0.5 mg PO Q6H PRN PRN PRN Reason: ANXIETY Last Admin: 12/19/17 04:38 Dose: 0.5 mg Buspirone HCl (Buspirone Hcl) 15 mg PO BID [facility] Last Admin: 12/19/17 09:10 Dose: 15 mg Diltiazem HCl (Cardizem Cd) 240 mg PO DAILY [facility] Last Admin: 12/19/17 09:10 Dose: 240 mg Doxycycline Monohydrate (Doxycycline) 100 mg PO BID [facility] Last Admin: 12/19/17 09:11 Dose: 100 mg Enoxaparin Sodium (Lovenox) 40 mg SC DAILY@1000 [facility] Last Admin: 12/19/17 09:19 Dose: 40 mg Fluticasone Propionate (Flonase Nasal [place]) 1 spray NASAL BID [facility] Last Admin: 12/19/17 09:11 Dose: 1 spray Furosemide (Lasix) 20 mg PO DAILY [facility] Last Admin: 12/19/17 09:11 Dose: 20 mg Sodium Chloride () 250 mls @ 15 mls/hr IV .[id number] PRN PRN Reason: SALINE FLUSH Ibuprofen (Motrin) 200 mg PO Q6H PRN PRN PRN Reason: PAIN Last Admin: 12/18/17 20:47 Dose: 200 mg Imatinib Mesylate (Gleevec) 400 mg PO DAILY@1300 [facility] Last Admin: 12/18/17 13:16 Dose: 400 mg Loratadine (Claritin) 10 mg PO DAILY [facility] Last Admin: 12/19/17 09:10 Dose: 10 mg Magnesium Hydroxide (Milk Of Magnesia) 30 ml PO DAILY PRN PRN PRN Reason: Constipation Methylprednisolone (Solu-Medrol) 40 mg IV Q8 [facility] Last Admin: 12/19/17 05:12 Dose: 40 mg Oxycodone HCl (Oxyir) 5 mg PO Q4H PRN PRN PRN Reason: Moderate Pain (pain scale 4-5) Potassium Chloride (K-Dur) 20 meq PO BIDCM [facility] Last Admin: 12/19/17 09:03 Dose: 20 meq Prochlorperazine Maleate (Compazine) 10 mg PO Q6H PRN PRN PRN Reason: NAUSEA Last Admin: 12/18/17 13:15 Dose: 10 mg Sertraline HCl (Zoloft) 75 mg PO DAILY [facility] Last Admin: 12/19/17 09:12 Dose: 75 mg Sodium Chloride () 5 - 30 ml IV UD PRN PRN Reason: SALINE FLUSH Last Admin: 12/19/17 05:12 Dose: 20 ml Assessment/Plan Patient is a 57-year-old lady with history of chronic hypoxic respiratory failure secondary to COPD on baseline home O2 who presented with progressive shortness of breath. Assessment was consistent with COPD exacerbation and admitted to regular nursing floor where patient is currently being managed. 1. COPD exacerbation: Placed on aerosols, steroids and antibiotics. Oxygen titrated to keep pulse ox >92%.. Patient was seen in consultation by pulmonary medicine; patient improving with plans to discharge patient on 12/20/2017 2. Hypertension-blood pressure controlled, home medications continued with dose adjustment as needed 3. Chronic myeloid leukemia patient is on Gleevec; currently stable followed by oncology as outpatient 4. Depression with anxiety. Patient is on SSRI 5. History of of pulmonary embolism. Patient was treated with Coumadin for 6 months. 6. . Ulcerative colitis by history: Remains in remission 7. Chronic sinus tachycardia 8. Obesity with BMI of 34.4: Weight loss advised 9. DVT prophylaxis SC Lovenox 10. Chronic hypoxic respiratory failure secondary to COPD patient is on baseline home O2 Code Visit Inpatient E&M: [id number] [facility] Hosp L2
[2017-12-19 10:03] LABS: Hematocrit 35.7 % (37-47); Hemoglobin 11.6 g/dl (12.0-15.0); Mean Corp Hgb Conc 32.5 g/gl (32-36); Mean Corpuscular Hgb 32.1 pg (27.0-32.0); Mean Corpuscular Volume 98.9 fL (81-99); Mean Platelet Vol. 9.3 fl (6.2-12.0); Platelet Count 196 K/mm3 (150-450); RBC Distribution Width CV 15.3 % (11.6-14.6); RBC Distribution Width SD 55.7 fl (35.1-43.9); Red Blood Count 3.61 M/mm3 (4.2-5.4)
[2017-12-19 10:04] LABS: Scan Indicated on CBC? Y/N NO
[2017-12-19 10:26] LABS: Anion Gap 7 (5-15); BUN 22 mg/dL (7-18); BUN/Creat Ratio 23.2 RATIO (10-20); Calcium,Total 8.3 mg/dL (8.5-10.1); Chloride 108 mmol/L (98-107); Creatinine, Serum 0.95 mg/dL (0.55-1.02); EST Glomerular Filtration Rate 65 mL/min (>60); Est Glom Filt Rate - Afr Amer 79 mL/min (>60); Estimated Creatinine Clearance 50.49 ml/min; Glucose 178 mg/dL (74-106); Magnesium 1.9 mg/dL (1.6-2.6); Potassium 3.8 mmol/L (3.5-5.1); Sodium Level 141 mmol/L (136-145)
--- NOTE | 2017-12-19 10:39 | PCM.PROGNOTE ---
Subjective: The patient was seen and examined. Reports some improvement in her breathing, however minimal. Still having occasional cough and intermittent wheezing. Denies any shortness of breath at rest. She is maintaining appropriate saturations on 3 L of oxygen supplementation. Patient remains afebrile and hemodynamically stable. Objective: Recent lab and culture data reviewed. Respiratory panel negative. Sputum culture was rejected secondary to not meeting criteria for appropriate sample. Patient does have a white count of 14,000 today, however she has been on steroids. Blood sugars are under fairly good control. - Physical Exam General: Alert, Oriented x3, Cooperative, No apparent distress, Well developed, Well nourished, - - No conversational dyspnea HEENT: Atraumatic, Normocephalic Oral: Moist Mucosa, No Gingival or Mucosal Lesions/ Ulcerations Neck: Supple, No Nodes, Trachea Midline Lungs: No rhonchi, No rales, Diminished, - - End expiratory wheeze with forced expiration Cardiovascular: Regular rate, Regular Rhythm, Normal S1, Normal S2, No murmurs, No rub noted, No Gallop Abdomen: Bowel Sounds Present, Soft, Non Tender, Non-Distended, Obese Extremities: No clubbing, No cyanosis, No edema Skin: No rashes, No breakdown Musculoskeletal: No Tenderness to Palpation of Joints or Extremities, - - kyphosis Lymphatic: No Cervical, Supraclavicular, or Inguinal Adenopathy Neurological: Neuro grossly intact Psych/Mental Status: Alert and oriented to time, place, person, mood and affect Vital Signs Temp Pulse Resp BP Pulse Ox 98.9 F 103 H 18 130/89 H 92 12/19/17 08:46 12/19/17 08:54 12/19/17 08:46 12/19/17 08:46 12/19/17 08:54 Oxygen Flow Rate (L/min) 3 Oxygen Delivery Method Nasal Cannula Weight: 185 lb 3.013 oz Body Mass Index (BMI) 34.4 Intake and Output for Last 24 Hours 12/17/17 12/18/17 12/19/17 23:59 23:59 23:59 Intake Total 1440 / 1440 240 / 240 Balance 1440 / 1440 240 / 240 Microbiology Past 72 Hours 12/18/17 11:06 Respiratory Panel (PCR) - Final Mucosa - Nose Laboratory Tests Past 24 Hrs 12/19/17 12/19/17 09:45 09:45 WBC 14.0 H RBC 3.61 L Hgb 11.6 L Hct 35.7 L MCV 98.9 MCH 32.1 H MCHC 32.5 RDW 15.3 H RDW Differential 55.7 H Plt Count 196 MPV 9.3 Sodium 141 Potassium 3.8 Chloride 108 H Carbon Dioxide 26.0 Anion Gap 7 BUN 22 H Creatinine 0.95 Estim Creat Clear Calc 50.49 Est GFR (MDRD) Af Amer 79 Est GFR (MDRD) Non-Af 65 BUN/Creatinine Ratio 23.2 H Glucose 178 H Calcium 8.3 L Magnesium 1.9 Assessment/Plan RECOMMENDATIONS 1. Wean oxygen supplementation to keep saturations 88-92%. 2. Encourage incentive spirometer 3. Increase activity as tolerated 4. Continue scheduled aerosols and transition to oral steroids today 5. Send sputum culture if cough becomes more productive 6. Ambulatory pulse ox prior to discharge 7. Follow-up in the pulmonary clinic after discharge in 2 weeks with DEALER RELATIONSHIP MANAGER IMPRESSIONS 1. Acute on chronic hypoxemic respiratory failure likely secondary to COPD exacerbation Baseline oxygen requirement of 3 L continuously, has been weaned to this baseline requirement. CTA of the chest with no indication of PE or dissection. Endorses diffuse COPD related changes. No infiltrate identified and no leukocytosis. Patient is on immunosuppressive therapy for CML. No fevers or chills. Sputum was rejected, did not meet criteria for sample. Continue scheduled aerosol treatments. Patient can likely be transitioned to prednisone today. Encourage incentive spirometer and increase activity as tolerated. Patient should have a walking oximetry prior to consideration for discharge from the hospital. She can follow-up in the pulmonary clinic in 2 weeks. Leukocytosis today likely secondary to steroid use. 2. Anxiety/depression/hypertension/CML/fibromyalgia/ulcerative colitis/tobacco abuse, in remission Complicates care, management, recovery, and prognosis. Continue home medications as indicated. Thank you for the opportunity to participate in this patient's care, please do not hesitate contact us with any further questions or concerns. This note was generated with [employer] dictation software. It may contain incorrect words, spelling, and punctuation that were not noted in checking the note before signing.
[2017-12-19] MEDS: proCHLORPERazine 5 MG Tablet 10 MG PO (13:26)
[2017-12-20 03:13] VITALS: BP 131/38; PULSE 100; RESP 16; TEMP 36.4; O2SAT 95
[2017-12-20 03:40] VITALS: PULSE 100; RESP 18
[2017-12-20] MEDS: Ipratropium/Albuterol Sulfate 3 ML AMPUL.NEB INHALATION ×4 (03:40→14:13)
[2017-12-20 06:38] LABS: Hematocrit 35.2 % (37-47); Hemoglobin 11.3 g/dl (12.0-15.0); Mean Corp Hgb Conc 32.1 g/gl (32-36); Mean Corpuscular Hgb 32.6 pg (27.0-32.0); Mean Corpuscular Volume 101.4 fL (81-99); Mean Platelet Vol. 9.2 fl (6.2-12.0); Platelet Count 213 K/mm3 (150-450); RBC Distribution Width CV 15.2 % (11.6-14.6); RBC Distribution Width SD 55.3 fl (35.1-43.9); Red Blood Count 3.47 M/mm3 (4.2-5.4); White Blood Count 14.9 K/mm3 (4.4-11.0)
[2017-12-20 06:42] LABS: Scan Indicated on CBC? Y/N NO
[2017-12-20 06:53] LABS: Anion Gap 8 (5-15); BUN 27 mg/dL (7-18); Calcium,Total 8.5 mg/dL (8.5-10.1); Chloride 108 mmol/L (98-107); Creatinine, Serum 1.08 mg/dL (0.55-1.02); EST Glomerular Filtration Rate 56 mL/min (>60); Est Glom Filt Rate - Afr Amer 68 mL/min (>60); Estimated Creatinine Clearance 44.41 ml/min; Glucose 181 mg/dL (74-106); Potassium 3.8 mmol/L (3.5-5.1); Sodium Level 143 mmol/L (136-145)
[2017-12-20 07:14] VITALS: PULSE 97; O2SAT 94
--- NOTE | 2017-12-20 08:44 | PN_ITS ---
Subjective: The patient was seen and examined. Nursing staff reports no events overnight. She is overall feeling better. She denies any cough or sputum production, she does have some occasional wheezing. Objective: Recent lab and culture data reviewed. Respiratory panel negative. Sputum culture was rejected secondary to not meeting criteria for appropriate sample. Has mild leukocytosis but on steroids. Patient had temp of 99.5?F last evening , otherwise afebrile. Intermittently tachycardic. Maintaining appropriate saturations on 3-4 L oxygen supplementation, her baseline requirements are 3 L at rest and 5 L with exertion. - Physical Exam General: Alert, Oriented x3, Cooperative, No apparent distress, Well developed, Well nourished, - - No conversational dyspnea HEENT: Atraumatic, Normocephalic Oral: Moist Mucosa Neck: Supple, No Nodes, Trachea Midline Lungs: Diminished, Rhonchi, Wheezes - Forced expiratory Cardiovascular: Regular rate, Regular Rhythm, Normal S1, Normal S2 Abdomen: Bowel Sounds Present, Soft, Non Tender, Obese Extremities: No clubbing, No cyanosis, No edema Skin: No rashes Musculoskeletal: No Tenderness to Palpation of Joints or Extremities Lymphatic: - - no adenopathy Neurological: Neuro grossly intact Psych/Mental Status: Alert and oriented to time, place, person, mood and affect Vital Signs Temp Pulse Resp BP Pulse Ox 97.6 F L 100 18 131/38 H 95 12/20/17 03:13 12/20/17 03:40 12/20/17 03:40 12/20/17 03:13 12/20/17 03:13 Oxygen Flow Rate (L/min) 4 Oxygen Delivery Method Nasal Cannula Weight: 185 lb 3.013 oz Body Mass Index (BMI) 34.4 Intake and Output for Last 24 Hours 12/18/17 12/19/17 12/20/17 23:59 23:59 23:59 Intake Total 1440 / 1440 530 / 530 500 / 500 Balance 1440 / 1440 530 / 530 500 / 500 Microbiology Past 72 Hours 12/18/17 11:06 Respiratory Panel (PCR) - Final Mucosa - Nose Laboratory Tests Past 24 Hrs 12/19/17 12/19/17 12/20/17 09:45 09:45 06:00 WBC 14.0 H 14.9 H RBC 3.61 L 3.47 L Hgb 11.6 L 11.3 L Hct 35.7 L 35.2 L MCV 98.9 101.4 H MCH 32.1 H 32.6 H MCHC 32.5 32.1 RDW 15.3 H 15.2 H RDW Differential 55.7 H 55.3 H Plt Count 196 213 MPV 9.3 9.2 Sodium 141 Potassium 3.8 Chloride 108 H Carbon Dioxide 26.0 Anion Gap 7 BUN 22 H Creatinine 0.95 Estim Creat Clear Calc 50.49 Est GFR (MDRD) Af Amer 79 Est GFR (MDRD) Non-Af 65 BUN/Creatinine Ratio 23.2 H Glucose 178 H Calcium 8.3 L Magnesium 1.9 18 06:00 WBC RBC Hgb Hct MCV MCH MCHC RDW RDW Differential Plt Count MPV Sodium 143 Potassium 3.8 Chloride 108 H Carbon Dioxide 27.0 Anion Gap 8 BUN 27 H Creatinine 1.08 H Estim Creat Clear Calc 44.41 Est GFR (MDRD) Af Amer 68 Est GFR (MDRD) Non-Af 56 L BUN/Creatinine Ratio 25.0 H Glucose 181 H Calcium 8.5 Magnesium 2.0 Assessment/Plan RECOMMENDATIONS 1. Wean oxygen supplementation to keep saturations 88-92%. 2. Encourage incentive spirometer 3. Increase activity as tolerated 4. Continue scheduled aerosols oral steroids with taper at discharge 5. Send sputum culture if cough becomes more productive 6. Ambulatory pulse ox prior to discharge 7. Follow-up in the pulmonary clinic after discharge in 2 weeks with WAGE HAND 8. Okay to discharge from pulmonary standpoint IMPRESSIONS 1. Acute on chronic hypoxemic respiratory failure likely secondary to COPD exacerbation Improved. Baseline oxygen requirement of 3 L continuously, has been weaned to her baseline. CTA of the chest with no indication of PE or dissection. Endorses diffuse COPD related changes. No infiltrate identified and no leukocytosis. Patient is on immunosuppressive therapy for CML. No fevers or chills. Sputum was rejected, did not meet criteria for sample. Continue scheduled aerosol treatments. She has been transitioned to oral steroids. Encourage incentive spirometer and increase activity as tolerated. Patient should have a walking oximetry prior to consideration for discharge from the hospital. She can follow-up in the pulmonary clinic in 2 weeks. Leukocytosis today likely secondary to steroid use. No indication for antibiotics. 2. Anxiety/depression/hypertension/CML/fibromyalgia/ulcerative colitis/tobacco abuse, in remission Complicates care, management, recovery, and prognosis. Continue home medications as indicated. Thank you for the opportunity to participate in this patient's care, please do not hesitate contact us with any further questions or concerns. This note was generated with [employer] dictation software. It may contain incorrect words, spelling, and punctuation that were not noted in checking the note before signing.
[2017-12-20] MEDS: Loratadine 10 MG Tablet PO (08:55)
[2017-12-20] MEDS: dilTIAZem CD 240 MG Capsule PO (08:55)
[2017-12-20] MEDS: Fluticasone 0.05% 1 SPRAY NASAL.SRY NASAL (08:56)
[2017-12-20] MEDS: Doxycycline 100 MG CAPSULE PO (08:56)
[2017-12-20] MEDS: Sertraline 50 MG Tablet 75 MG PO (08:57)
[2017-12-20] MEDS: Furosemide 20 MG Tablet PO (08:57)
[2017-12-20] MEDS: Enoxaparin 40 MG/0.4 ML Syringe SC (08:57)
[2017-12-20 09:00] VITALS: BP 114/74; PULSE 100; RESP 20; RESP 22; TEMP 36.7; O2SAT 95
--- NOTE | 2017-12-20 10:48 | DCINST_ITS ---
You will use the following diet at home:: No restrictions Your food should be the consistency of: Regular Discharge Activity: May not drive while taking narcotic pain medications. Allergies/Adverse Reactions: Allergies Penicillins Allergy (Severe, Verified 11/07/17 11:36) Hives azithromycin Adverse Reaction (Severe, Verified 11/07/17 11:36) Diarrhea codeine Adverse Reaction (Severe, Verified 11/07/17 11:36) Vomiting ondansetron HCl [From Zofran (as hydrochloride)] Adverse Reaction (Severe, Verified 11/07/17 11:36) Nausea pregabalin [From Lyrica] Adverse Reaction (Severe, Verified 11/07/17 11:36) i can't see propoxyphene napsylate [From Darvocet-N 100] Adverse Reaction (Severe, Verified 11/07/17 11:36) Vomiting Sulfa (Sulfonamide Antibiotics) Adverse Reaction (Verified 11/07/17 11:36) Abd cramps/diarrhea Medications to take at Discharge Albuterol Inhaler [Ventolin Hfa] 2 puff INHALATION Q4H 10/01/15 Albuterol Aerosols [Ventolin Aerosols] 2.5 mg INHALATION Q4H PRN PRN #100 vial.neb. NS 12/09/15 BusPIRone [Buspar] 15 mg PO BID 01/29/16 Potassium Chloride [K-Dur] 20 meq PO BID 05/18/16 Budesonide/Formoterol 160/4.5 [Symbicort 160/4.5 Mcg Inhaler (SP)] 2 puff INHALATION BID 08/11/16 Fluticasone 0.05% [Flonase Nasal [place]] 1 spray NASAL BID 08/11/16 ALPRAZolam [Xanax] 0.5 - 1 mg PO Q6H PRN 11/23/16 Oxycodone [Oxyir] 5 mg PO Q4H PRN PRN #20 tab 11/27/16 Ipratropium/Albuterol Sulfate [Duoneb] 3 ml INHALATION Q6HWA.RT PRN 02/01/17 Cetirizine HCl [Zyrtec] 10 mg PO DAILY 06/18/17 Diltiazem CD [Cardizem CD] 240 mg PO DAILY 06/18/17 Sertraline HCl [Zoloft] 75 mg PO DAILY 06/18/17 Prochlorperazine Maleate 10 mg PO Q6H PRN PRN #30 tab 07/25/17 Tiotropium [place] [Spiriva Respimat] 4 gm IH DAILY 07/25/17 Ibuprofen [Ibuprofen Ib] 200 mg PO Q6H PRN 08/22/17 Imatinib Mesylate [Gleevec] 400 mg PO DAILY 08/22/17 Furosemide [Lasix] 20 mg PO DAILY PRN 09/19/17 Prednisone [Deltasone] 40 mg PO DAILY 09/19/17 Doxycycline 100 mg PO BID #10 cap 12/20/17 Prednisone 10 mg PO QDAY #30 tab 12/20/17 The following prescriptions were given: Doxycycline 100 mg PO BID #10 cap Prednisone 10 mg PO QDAY #30 tab Primary Care Physician: Jennifer Coelho NP-C [Primary Care Provider] - Please follow up with your Primary Care Physician in: in 5-7 days Please Follow Up With: Taj Santana MD When: as scheduled Proposed Discharge Date: 12/20/17
--- NOTE | 2017-12-20 10:48 | PCM.DC.SUM ---
Discharge Date and Diagnosis Date of Admission: 12/17/17 Date of Discharge: 12/20/17 - Primary Discharge Diagnosis COPD exacerbation - Secondary Discharge Diagnosis Chronic Problems (Last Updated 12/20/17 @ 10:40 by Luis Manuel Finch MD) HTN (hypertension) (Chronic) Fibromyalgia (Chronic) Nicotine abuse (Chronic) Sinusitis (Chronic) Seasonal allergies (Chronic) RUQ pain (Chronic) Caloric malnutrition (Chronic) Stage 3 severe COPD by GOLD classification (Chronic) Ulcerative colitis (Chronic) Hx of smoking (Chronic) Mid back pain (Chronic) Carpal tunnel syndrome (Chronic) Obesity (BMI 30.0-34.9) (Chronic) Poor compliance with medication (Chronic) Educational circumstance (Chronic) CML (chronic myelocytic leukemia) (Chronic) DREW (generalized anxiety disorder) (Chronic) Emphysema of lung (Chronic) Depression (Chronic) History of cardiac cath (Chronic) 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 History of hysterectomy (Chronic) History of hemorrhoidectomy (Chronic) cataract surgery (Chronic) Hospital Course and Treatment Imaging Results: Clinical Impression(s) from Imaging Studies Chest CTA 12/17/17 20:32 IMPRESSION: 1. No evidence of pulmonary embolism or aortic dissection. 2. Diffuse COPD changes with no evidence of focal consolidation. Electronically Signed: Tyrese Fajardo DO at 22:01 EDT , Service support , Operations: None Summary of Care Provided: Patient is a 57-year-old lady with history of chronic hypoxic respiratory failure secondary to COPD on baseline home O2 who presented with progressive shortness of breath. Assessment was consistent with COPD exacerbation and admitted to regular nursing floor where patient is currently being managed. 1. COPD exacerbation: Placed on aerosols, steroids and antibiotics. Oxygen titrated to keep pulse ox >92%.. Patient was seen in consultation by pulmonary medicine; did improve on therapy and discharged on 12/20/2017 2. Hypertension-blood pressure controlled, home medications continued with dose adjustment as needed 3. Chronic myeloid leukemia patient is on Gleevec; currently stable followed by oncology as outpatient 4. Depression with anxiety. Patient is on SSRI 5. History of of pulmonary embolism. Patient was treated with Coumadin for 6 months. 6. . Ulcerative colitis by history: Remains in remission 7. Chronic sinus tachycardia 8. Obesity with BMI of 34.4: Weight loss advised 9. DVT prophylaxis SC Lovenox 10. Chronic hypoxic respiratory failure secondary to COPD patient is on baseline home O2 Discharge Activity: May not drive while taking narcotic pain medications. Home Medications: Medications to take at Discharge Albuterol Inhaler [Ventolin Hfa] 2 puff INHALATION Q4H 10/01/15 Albuterol Aerosols [Ventolin Aerosols] 2.5 mg INHALATION Q4H PRN PRN #100 vial.neb. NS 12/09/15 BusPIRone [Buspar] 15 mg PO BID 01/29/16 Potassium Chloride [K-Dur] 20 meq PO BID 05/18/16 Budesonide/Formoterol 160/4.5 [Symbicort 160/4.5 Mcg Inhaler (SP)] 2 puff INHALATION BID 08/11/16 Fluticasone 0.05% [Flonase Nasal [place]] 1 spray NASAL BID 08/11/16 ALPRAZolam [Xanax] 0.5 - 1 mg PO Q6H PRN 11/23/16 Oxycodone [Oxyir] 5 mg PO Q4H PRN PRN #20 tab 11/27/16 Ipratropium/Albuterol Sulfate [Duoneb] 3 ml INHALATION Q6HWA.RT PRN 02/01/17 Cetirizine HCl [Zyrtec] 10 mg PO DAILY 06/18/17 Diltiazem CD [Cardizem CD] 240 mg PO DAILY 06/18/17 Sertraline HCl [Zoloft] 75 mg PO DAILY 06/18/17 Prochlorperazine Maleate 10 mg PO Q6H PRN PRN #30 tab 07/25/17 Tiotropium [place] [Spiriva Respimat] 4 gm IH DAILY 07/25/17 Ibuprofen [Ibuprofen Ib] 200 mg PO Q6H PRN 08/22/17 Imatinib Mesylate [Gleevec] 400 mg PO DAILY 08/22/17 Furosemide [Lasix] 20 mg PO DAILY PRN 09/19/17 Prednisone [Deltasone] 40 mg PO DAILY 09/19/17 Doxycycline 100 mg PO BID #10 cap 12/20/17 Prednisone 10 mg PO QDAY #30 tab 12/20/17 Following Prescrptions Were Given to Patient: Doxycycline 100 mg PO BID #10 cap Prednisone 10 mg PO QDAY #30 tab Primary Care Physician: Jennifer Coelho NP-C [Primary Care Provider] - Please follow up with your Primary Care Physician in: in 5-7 days Please Follow Up With: Taj Santana MD When: as scheduled Disposition: Home Minutes spent on discharge:: 35 Patient Condition:: Stable Meaningful Use Info Meaningful Use Diagnoses (Choose all that apply): None applicable Code Visit Inpatient E&M: 25285 Disch Hosp - Physical Exam General: Cooperative Lungs: Diminished Cardiovascular: Regular rate Neurological: Neuro grossly intact Psych/Mental Status: Normal Affect Vital Signs Temp Pulse Resp BP Pulse Ox 98.0 F 100 20 H 114/74 95 12/20/17 09:00 12/20/17 09:00 12/20/17 09:00 12/20/17 09:00 12/20/17 09:00 Oxygen Flow Rate (L/min) 4 Oxygen Delivery Method Nasal Cannula Weight: 84 kg Body Mass Index (BMI) 34.4 Intake and Output for Last 24 Hours 12/18/17 12/19/17 12/20/17 23:59 23:59 23:59 Intake Total 1440 / 1440 530 / 530 500 / 500 Balance 1440 / 1440 530 / 530 500 / 500 Microbiology Past 72 Hours 12/18/17 11:06 Respiratory Panel (PCR) - Final Mucosa - Nose Laboratory Tests Past 24 Hrs 12/20/17 12/20/17 06:00 06:00 WBC 14.9 H RBC 3.47 L Hgb 11.3 L Hct 35.2 L MCV 101.4 H MCH 32.6 H MCHC 32.1 RDW 15.2 H RDW Differential 55.3 H Plt Count 213 MPV 9.2 Sodium 143 Potassium 3.8 Chloride 108 H Carbon Dioxide 27.0 Anion Gap 8 BUN 27 H Creatinine 1.08 H Estim Creat Clear Calc 44.41 Est GFR (MDRD) Af Amer 68 Est GFR (MDRD) Non-Af 56 L BUN/Creatinine Ratio 25.0 H Glucose 181 H Calcium 8.5 Magnesium 2.0
[2017-12-20 10:52] VITALS: PULSE 114; RESP 22
[2017-12-20] MEDS: ALPRAZolam 0.5 MG Tablet PO (11:17)
[2017-12-20] MEDS: proCHLORPERazine 5 MG Tablet 10 MG PO (13:54)
--- NOTE | 2017-12-20 14:00 | CASEMGMT ---
ESTEPHANIA JUNIOR received update from ESTEPHANIA Almonte that patient's ride will be bringing portable oxygen tank from home for discharge. ESTEPHANIA JUNIOR faxed updated clinicals and resumption of care order for detention and HH Aide to [facility]. ESTEPHANIA JUNIOR will continue to follow this patient and plan for a safe discharge.
[2017-12-20 14:13] VITALS: PULSE 105; RESP 22
== END 2017-12-20 15:59 | disposition home health service (06) | DRG 140 ==
LOC: ED 20:47 → MS3 23:05
PROVIDERS: Admitting Provider Family Medicine; Emergency Provider Emergency Medicine; Family Provider Nurse Practitioner Family; PCP Nurse Practitioner Family; Visit Provider Internal Medicine
DX: J44.1 Chronic obstructive pulmonary disease with (acute) exacerbation (principal); C92.10 Chronic myeloid leukemia, BCR/ABL-positive, not having achieved remission; E46 Unspecified protein-calorie malnutrition; K51.90 Ulcerative colitis, unspecified, without complications; Z99.81 Dependence on supplemental oxygen; J32.9 Chronic sinusitis, unspecified; I10 Essential (primary) hypertension; M79.7 Fibromyalgia; F41.8 Other specified anxiety disorders; Z87.891 Personal history of nicotine dependence; F41.1 Generalized anxiety disorder; E66.9 Obesity, unspecified; Z68.34 Body mass index [BMI] 34.0-34.9, adult; Z86.711 Personal history of pulmonary embolism; R00.0 Tachycardia, unspecified; Z79.51 Long term (current) use of inhaled steroids; Z79.899 Other long term (current) drug therapy; J96.11 Chronic respiratory failure with hypoxia
CPT/HCPCS: 36415; 71275; 80048; 80053; 83735; 84484; 85025; 85027; 85610; 87070; 87205; 87633; 93005; 94640; 97802; 99285; Q9967; A4216

== ENCOUNTER 2018-01-01 15:09 | Outpatient (RCR) | payer MEDICAID, SELFPAY ==
--- NOTE | 2018-01-03 14:15 | HP.PTEVAL_ITS ---
Patient's Visit Information CHAU LINDSAY is a 57 year old F referred to Physical Therapy by YARELIS Dumont NP.INESSA with a diagnosis of PULMONARY EMPHYSEMA. Date of Evaluation: 01/01/18 Physical Therapist: Chapincito Talbert PT, - Visit Plan Frequency: 1 visit Plan: Recommend power scooter due severe pulmanary emphysema with SOB which patient is on continues 02 thus unable to ambulate min distance,poor endurance impairs patiens function and ADLS. Patient benifit from power scoooter to optimise patient level of moblity in home enable patient perform ADL'S and self hygine as well in community . - Subjective Subjective: This 57 y/o female presents with weakness and inablity to walk due to pulmonary emphysema. Patient has had COPD for 5 years which has been progessively worse and cuases deficits for ADLS' and housework tasks with increase SOB. Patient lives alone. Patient lives in HUD housing. Patient has MACHINE REBUILDER 2 x/week and nurse 1xweek. Patient has pallaitive DR's every 3months to manage MEDS and anxiety levels.Patient requires assist with bathing and some assist due to SOB. Patient unable to ambulate in community uses community W/C. Patient walks 10-20 feet with increase SOB.Patient is on 3L02 continues increase up to 5L02 as needed.Patient uses rollator short distance. Patient has walk in shower with grab rails.Patient sleeps in recliner. SOCAIL: lives alone. VOCATION: disablity - Pain Bilateral Back Pain Intensity (Out of 10): 6 Pain Intensity Range: 10 - Objective POSTURE: posterior pelvic tilt rounded shoulders. NEURO: denies parathesia/ tingling,reflexes inact. EDEMA: left ankle greater left pitted. BALANCE: dynamic fair -with fww. TRANSFERS: sit-stand with mod Independant. BED MOBILITY: sleeps in recliner. GAIT: ambulates with fww 10 feet with SBA and w/ c follow with 02 3liters. MMT: quads/hams 4-/5 ,hip flexion 3+/5,abd 3/5 ankle DF 4-/5,PF 3+/5. BUE: grossly 4-/5 ,except shoulders 3+/5. ENDURANCE: poor - Goals Goal 1:: Patient to benifit from power w/c scooter due to above impairmenmts Goal Time Frame: 1 visit - Rehabilitation Potential Physical Therapy Diagnosis: This patient has multiple comormodities luekemia, emphysema along with poor endurance,decrease strength LE ,unable to ambulate more than 10 feet due to severe SOB thus causes deficits for ADL'S and self hygine. Rehabilitation Potential: Fair - Anticipated Interventions Patient/Client Instruction: Educate patient on: Condition, Plan of Care Other: yifan sheikh Thank you for the opportunity to evaluate your patient. For Medicare and Medicare HMO plans, please review the plan of care and approve it. It will need to be FAXED BACK to us at [phone] for Medicare purposes. Please let me know if there are questions or concerns regarding this plan of care. Physician Signature: Date:
== END 2018-01-01 19:00 | disposition home or self-care (01) ==
LOC: PT 15:09
PROVIDERS: Family Provider Nurse Practitioner Family; PCP Nurse Practitioner Family; Visit Provider Nurse Practitioner Family
DX: J43.9 Emphysema, unspecified (principal)
CPT/HCPCS: 97163

== ENCOUNTER → 2018-01-15 17:39 | Outpatient (CLI) | payer MEDICAID, SELFPAY | PROVIDERS: Visit Provider Internal Medicine Hematology & Oncology | DX: C92.10 Chronic myeloid leukemia, BCR/ABL-positive, not having achieved remission (principal); Z79.899 Other long term (current) drug therapy ==

== ENCOUNTER → 2018-03-07 13:49 | Outpatient (CLI) | payer MEDICAID, SELFPAY ==
--- NOTE | 2018-03-07 13:53 | RAD_ITS ---
STUDY: X-RAY CHEST REASON FOR EXAM: Female, 57 years old. Chest pain. TECHNIQUE: PA and lateral views of the chest. COMPARISON: September 19, 2017 FINDINGS: There is hyperinflation of the lungs consistent with chronic obstructive lung disease (COPD). Right lower lung atelectasis or infiltrate. There is no demonstrated pleural abnormality. There is mild cardiac enlargement. Normal mediastinum and sven. Normal visualized pulmonary arteries. Normal visualized aortic arch and descending thoracic aorta. Normal visualized thoracic spine. Normal visualized ribs, clavicles, and shoulders. There is no demonstrated abnormality of the visualized soft tissue structures of the upper abdomen. RAD/Chest PA and Lateral IMPRESSION: COPD with right lower lung atelectasis or infiltrate. Electronically Signed: Og Onofre MD at 14:02 EDT , Service support ,
--- NOTE | 2018-03-07 15:33 | VDLE_ITS ---
Reason For Study: LEG SWELLING RIGHT LEFT CFV is compressible, spontaneous, phasic, GSV is normal. competent and demonstrates normal CFV is compressible, spontaneous, phasic, augmentation. competent, and demonstrates normal Procedure augmentation. Exam performed in department. FV is compressible, spontaneous, phasic, A preliminary report was called and/or faxed competent and demonstrates normal to Marek Hernandez. augmentation. POP V is compressible, spontaneous, phasic, competent and demonstrates normal augmentation. T/P Trunk is compressible. PTV is compressible. LT PerV is compressible. Interpretation Summary Deep veins of the left lower extremity are patent and compressible segmentally. There is no evidence of left lower extremity deep vein thrombosis. Valvular competence appears intact within the proximal deep venous system on the left . The left greater saphenous vein appears patent and compressible segmentally. Ordering Physician: Bridget Hernandez Referring Physician: Bridget Hernandez Performed By: Amber Higginbotham RVT
[2018-03-07 16:20] LABS: D-Dimer Quantitative (DVT/PE) 1.11 FEU/ug/m (0.27-0.49)
== END ==
PROVIDERS: Family Provider Nurse Practitioner Family; PCP Nurse Practitioner Family; Visit Provider Nurse Practitioner Acute Care
DX: J44.9 Chronic obstructive pulmonary disease, unspecified (principal)
CPT/HCPCS: 36415; 71046; 85379; 93971

== ENCOUNTER → 2018-03-11 13:02 | Outpatient (CLI) | payer MEDICAID, SELFPAY ==
--- NOTE | 2018-03-11 13:02 | DT_ITS ---
This patient was seen during an EMR downtime March 11, 2018 - March 18, 2018. This patient may have a combination of paper and electronic documentation or all paper documentation. All documentation is viewable within the e-chart portion of [employer] for each patient visit.
--- NOTE | 2018-03-11 13:10 | CT_ITS ---
STUDY: CTA CHEST REASON FOR EXAM: Female, 57 years old. Elevated d-dimer and chest pain. RADIATION DOSAGE (If Supplied By Facility): CTDIvol = ( 13.02 ) mGy, DLP = ( 589.72 ) mGycm TECHNIQUE: The examination was performed with the intravenous administration of 100ml ml of Isovue 370 contrast material. Post-processing of the angiographic images was performed, with multiplanar reformation and 3D reconstruction. Individualized dose optimization techniques were used for this CT. COMPARISON: None. FINDINGS: Normal enhancement of the main pulmonary artery and right and left pulmonary arteries. Normal enhancement of the bilateral peripheral pulmonary arteries. There is no demonstrated pulmonary embolism. Normal thoracic aorta and visualized great vessels. There is no demonstrated aortic dissection. Normal heart and pericardium. Normal mediastinum. Normal hilar regions. Normal visualized trachea and bronchi. The lungs are hyperexpanded. There are coarsened interstitial markings suggestive of mild chronic fibrosis. No gross focal infiltrates. Normal pleura. No gross effusions. Normal chest wall structures. There are degenerative changes of thoracic spine. Normal visualized upper abdomen. CT/CTA Chest W/WO Contrast IMPRESSION: Normal CTA chest examination, without a demonstrated pulmonary embolism or arterial dissection. COPD. Electronically Signed: Rowdy Garcia MD at 17:25 EDT , Service support ,
== END ==
PROVIDERS: Family Provider Nurse Practitioner Family; PCP Nurse Practitioner Family; Visit Provider Nurse Practitioner Acute Care
DX: J44.9 Chronic obstructive pulmonary disease, unspecified (principal); R79.1 Abnormal coagulation profile
CPT/HCPCS: 71275; Q9967

== ENCOUNTER 2018-03-13 13:25 | Emergency (ER) | payer MEDICAID, SELFPAY ==
--- NOTE | 2018-03-13 13:25 | DT_ITS ---
This patient was seen during an EMR downtime March 11, 2018 - March 18, 2018. This patient may have a combination of paper and electronic documentation or all paper documentation. All documentation is viewable within the e-chart portion of [facility] for each patient visit.
--- NOTE | 2018-03-13 14:55 | RAD_ITS ---
STUDY: X-RAY CHEST REASON FOR EXAM: Female, 57 years old. Cough with pain. TECHNIQUE: PA and lateral views of the chest. COMPARISON: PA and lateral chest x-ray March 07, 2018; CTA chest/thorax March 11, 2018. FINDINGS: There is hyperinflation of the lungs consistent with chronic obstructive lung disease (COPD). Bibasilar stranding densities due to crowding and atelectasis are unchanged. A small pleural reaction now obscures the lateral costophrenic sulcus. There is borderline cardiomegaly. Normal mediastinum and sven. Normal visualized pulmonary arteries. Normal visualized aortic arch and descending thoracic aorta. There are stable mild degenerative changes and levoscoliosis of the visualized thoracic spine. Normal visualized ribs, clavicles, and shoulders. There is no demonstrated abnormality of the visualized soft tissue structures of the upper abdomen. RAD/Chest PA and Lateral IMPRESSION: 1. Hyperinflated, consistent with COPD. There is stable crowding and subsegmental atelectasis in the lung bases. 2. Borderline cardiac enlargement. No CHF. Electronically Signed: Chidi Beckman MD at 13:36 EDT , Service support ,
== END 2018-03-13 15:35 | disposition home or self-care (01) ==
LOC: ED 03-14 13:55
PROVIDERS: Emergency Provider Emergency Medicine; Family Provider Nurse Practitioner Family; PCP Nurse Practitioner Family
DX: J90 Pleural effusion, not elsewhere classified (principal); R07.89 Other chest pain; R51 Headache; J44.9 Chronic obstructive pulmonary disease, unspecified; M79.7 Fibromyalgia; Z87.19 Personal history of other diseases of the digestive system; Z85.6 Personal history of leukemia; Z99.81 Dependence on supplemental oxygen; Z87.891 Personal history of nicotine dependence; Z79.899 Other long term (current) drug therapy
CPT/HCPCS: 71046; 96374; 99283; A4216

== ENCOUNTER → 2018-04-02 12:24 | Outpatient (CLI) | payer MEDICAID, SELFPAY ==
[2018-04-02 13:14] VITALS: PULSE 112; PULSE 118; PULSE 127; PULSE 128; PULSE 130; PULSE 133; PULSE 135; O2SAT 87; O2SAT 92; O2SAT 93; O2SAT 97
--- NOTE | 2018-04-02 13:19 | CPS ---
Pt arrived on 3LNC concentrator. Pt stated she has felt more short of breath over the last couple weeks. At 1 minute patient spO2 87%. Patient placed on 4LNC tank. [facility] was called and they stated they would send paperwork to [facility] for a prescription for 4LNC. They also stated they would go to her house today to set her up with a portable tank (patients portable concentrator does not go above 3L).
--- NOTE | 2018-04-02 17:35 | WT_ITS ---
PSN 6 Minute Walk Test - 6 Minute Walk Test 6 Minute Walk Test: 6 Minute Walk Test PSN:6-Minute Walk Test Start: 04/02/18 13: 14 Freq: Status: Active Protocol: [id number] Document 04/02/18 13:14 SMB (Rec: 04/02/18 13:18 SMB [id number]) 6 Minute Walk Test Date Performed 04/02/18 Time Performed 12:32 Height 5 ft 1 in Weight: 84.368 kg Weight in Pounds 186.[address]: Brenden Ridley Assistive device used: None Pre-test Oxygen Flow Rate (L/min) (L/min) 3 Oxygen Delivery Method Nasal Cannula Pulse Ox (%) 93 Pulse Rate (60-100 beats/min) 112 H Dyspnea Curt Scale (0-10) 2 Exertion Curt Scale (6-20) 13 1st minute Oxygen Flow Rate (L/min) (L/min) 3 Oxygen Delivery Method Nasal Cannula Pulse Ox (%) 87 Pulse Rate (60-100 beats/min) 127 H Number of Rests Taken 1 Reported Symptoms Increased Work of Breathing 2nd minute Oxygen Flow Rate (L/min) (L/min) 4 Oxygen Delivery Method Nasal Cannula Pulse Ox (%) 93 Pulse Rate (60-100 beats/min) 130 H Reported Symptoms Increased Work of Breathing 3rd minute Oxygen Flow Rate (L/min) (L/min) 4 Oxygen Delivery Method Nasal Cannula Pulse Ox (%) 93 Pulse Rate (60-100 beats/min) 128 H Reported Symptoms Increased Work of Breathing 4th minute Oxygen Flow Rate (L/min) (L/min) 4 Oxygen Delivery Method Nasal Cannula Pulse Ox (%) 92 Pulse Rate (60-100 beats/min) 133 H Reported Symptoms Increased Work of Breathing 5th minute Oxygen Flow Rate (L/min) (L/min) 4 Oxygen Delivery Method Nasal Cannula Pulse Ox (%) 93 Pulse Rate (60-100 beats/min) 133 H Reported Symptoms Increased Work of Breathing 6th minute Oxygen Flow Rate (L/min) (L/min) 4 Oxygen Delivery Method Nasal Cannula Pulse Ox (%) 92 Pulse Rate (60-100 beats/min) 135 H Reported Symptoms Increased Work of Breathing Post-test Oxygen Flow Rate (L/min) (L/min) 4 Oxygen Delivery Method Nasal Cannula Pulse Ox (%) 97 Pulse Rate (60-100 beats/min) 118 H Dyspnea Curt Scale (0-10) 6 Exertion Curt Scale (6-20) 16 Reported Symptoms Increased Work of Breathing Full Laps Walked 8 Partial Lap, Number of Tiles Walked 4 Total Distance Walked (ft) 476 04/02/18 13:19 Cardiopulmonary Services by Irina Pritchard Pt arrived on 3LNC concentrator. Pt stated she has felt more short of breath over the last couple weeks. At 1 minute patient spO2 87%. Patient placed on 4LNC tank. [facility] was called and they stated they would send paperwork to [facility] for a prescription for 4LNC. They also stated they would go to her house today to set her up with a portable tank (patients portable concentrator does not go above 3L). Initialized on 04/02/18 13:19 - END OF NOTE - Interpretation Interpretation: The patient was noted to be 93% on 3 L nasal cannula at rest. Patient desaturated to 87% in the first minute and had to be increased to 4 L nasal cannula. Tachycardia was noted throughout testing with a peak heart rate of 135 bpm. In total, patient ambulated only 476 feet over the course of the 6 minutes and did require one break. These findings are consistent with a cardiopulmonary limitation exercise tolerance. - Recommendations Recommendations: The patient requires 3 L nasal cannula at rest, but should be increased to 4 L nasal cannula with any exertion.
== END ==
PROVIDERS: Family Provider Nurse Practitioner Family; PCP Nurse Practitioner Family; Visit Provider Internal Medicine Critical Care Medicine
DX: J44.9 Chronic obstructive pulmonary disease, unspecified (principal); J96.11 Chronic respiratory failure with hypoxia
CPT/HCPCS: 94060; 94618; 94726; 94729

== ENCOUNTER → 2018-06-14 11:42 | Outpatient (CLI) | payer MEDICAID, SELFPAY | PROVIDERS: Family Provider Nurse Practitioner Family; PCP Nurse Practitioner Family; Visit Provider Internal Medicine Hematology & Oncology | DX: C92.10 Chronic myeloid leukemia, BCR/ABL-positive, not having achieved remission (principal); Z79.899 Other long term (current) drug therapy | CPT/HCPCS: 36415 ==

== ENCOUNTER → 2018-06-14 12:28 | Outpatient (CLI) | payer MEDICAID, SELFPAY | PROVIDERS: Family Provider Nurse Practitioner Family; PCP Nurse Practitioner Family; Visit Provider Nurse Practitioner Acute Care | DX: J44.9 Chronic obstructive pulmonary disease, unspecified (principal); J96.21 Acute and chronic respiratory failure with hypoxia; C92.10 Chronic myeloid leukemia, BCR/ABL-positive, not having achieved remission; Z79.899 Other long term (current) drug therapy | CPT/HCPCS: 36415; 94762 ==

== ENCOUNTER → 2018-07-11 14:51 | Outpatient (CLI) | payer MEDICAID, SELFPAY ==
--- NOTE | 2018-07-11 14:54 | BI_ITS ---
MAMMOGRAPHY - BILATERAL SCREENING 3-D SULY SYNTHESIS REASON FOR EXAM: Female, 57 years old. Bilateral Screening 3-D tomosynthesis PERTINENT HISTORY: No significant family history. Leukemia 2015. TECHNIQUE: 2-D mammograms and 3-D Suly synthesis of the breast (s) were performed. CAD was performed. COMPARISON: 01/20/2016. FINDINGS: The breast composition is composed of scattered fibroglandular density. No dense spiculated masses or suspicious microcalcification cluster are identified. No architectural distortion or asymmetric density is identified. There is no skin thickening or nipple retraction identified. There has been no significant change identified since the prior study. BI/SCREENING MAMM (CAD), BILAT IMPRESSION: No mammographic sign of malignancy. Routine yearly mammograms recommended. ASSESSMENT CATEGORY: BIRADS Category 2: Benign. A letter regarding these results will be sent to the patient by the facility within 30 days. FOLLOW UP RECOMMENDATION: Yearly follow up mammogram recommended. (A) Negative mammographic results should not deter biopsy as a palpable lesion if present should be followed based on clinical grounds and biopsy performed if clinically persistent for 3 months or increasing size. Approximately 10% of breast cancers are not detected by mammography. A normal mammogram should not delay biopsy of a clinically suspicious abnormality. Electronically Signed: Tavo Grewal, at 17:40 EDT Tel , Service support ,
== END ==
PROVIDERS: Family Provider Nurse Practitioner Family; PCP Nurse Practitioner Family; Visit Provider Nurse Practitioner Family
DX: Z12.31 Encounter for screening mammogram for malignant neoplasm of breast (principal)
CPT/HCPCS: 77063; 77067

== ENCOUNTER → 2018-09-12 13:11 | Outpatient (CLI) | payer MEDICAID, SELFPAY ==
[2018-09-12 12:38] VITALS: BMI 34.2
--- NOTE | 2018-09-12 13:13 | RAD_ITS ---
STUDY: X-RAY CHEST REASON FOR EXAM: Female, 57 years old. Shortness of breath. COPD. TECHNIQUE: Frontal and lateral views of the chest. COMPARISON: 03/13/2018. FINDINGS: Normal lung volumes. Streaky densities across both lung bases, most consistent with scarring. No infiltrates. No effusions. Normal size heart. Normal mediastinum and sven. Normal visualized pulmonary arteries. Normal visualized aortic arch and descending thoracic aorta. There are diffuse degenerative changes of the visualized thoracic spine. Normal visualized ribs, clavicles, and shoulders. There is no demonstrated abnormality of the visualized soft tissue structures of the upper abdomen. RAD/Chest PA and Lateral IMPRESSION: Probable mild scarring across both lung bases. No definite acute chest disease. Electronically Signed: Rowdy Garcia MD at 22:35 EST , Service support ,
== END ==
PROVIDERS: Family Provider Nurse Practitioner Family; PCP Nurse Practitioner Family; Referring Provider Internal Medicine Critical Care Medicine; Visit Provider Internal Medicine Critical Care Medicine
DX: J96.11 Chronic respiratory failure with hypoxia (principal); J44.9 Chronic obstructive pulmonary disease, unspecified
CPT/HCPCS: 71046

== ENCOUNTER 2018-10-18 21:17 | Inpatient (IN) | payer MEDICAID, SELFPAY ==
[2018-09-12 12:38] VITALS: BMI 34.2
[2018-10-18] VITALS (7 sets, daily range): BP systolic 111–154; BP diastolic 79–97; PULSE 73–101; RESP 16–22; TEMP 36.7; O2SAT 93–94; BMI 37.8
--- NOTE | 2018-10-18 21:40 | EKG12_ITS ---
Test Reason : CP Blood Pressure : / mmHG Vent. Rate : 090 BPM Atrial Rate : 090 BPM P-R Int : 144 ms QRS Dur : 082 ms QT Int : 368 ms P-R-T Axes : 030 066 037 degrees QTc Int : 450 ms Normal sinus rhythm Nonspecific T wave abnormality Abnormal ECG Confirmed by IVETT MURO, EMILIA ([id number]), editor index LUCIO HAMILTON ([id number]) on 10/22/2018 4:35:35 PM Referred By: JAMI Confirmed By:EMILIA ROOT MD
--- NOTE | 2018-10-18 21:45 | RAD_ITS ---
STUDY: X-RAY CHEST REASON FOR EXAM: Female, 57 years old. Shortness of breath TECHNIQUE: Single AP portable view of the chest. COMPARISON: 09/12/2018. 03/13/2018. FINDINGS: There are superimposed monitor leads. Stable linear interstitial changes in the bases. Neg copd Stable blunting of the left costophrenic angle compared to 03/13/2018. This has increased since most recent examination 09/12/2018. There is borderline cardiomegaly. Normal mediastinum and sven. Normal visualized pulmonary arteries. Normal visualized aortic arch and descending thoracic aorta. Normal visualized thoracic spine. Normal visualized ribs, clavicles, and shoulders. There is no demonstrated abnormality of the visualized soft tissue structures of the upper abdomen. RAD/Chest 1 View (Portable) IMPRESSION: Borderline cardiac size, likely basilar scarring, areas of hyperinflation are stable findings. Recurrent opacification left costophrenic angle, possible pleural thickening/effusion. No pulmonary edema, congestive heart failure or confluent pneumonia. Electronically Signed: Kim Copeland MD at 0:31 EST , Service support ,
[2018-10-18 21:50] LABS: Absolute Lymphocyte Count 1.16 X10^3/ul (0.83-4.51); Absolute Neutrophil Count 5.7 X10^3/uL (2.0-7.7); Basophil# 0.01 X10^3/uL; Basophil% 0.1 % (0-1); Eosinophil# 0.02 X10^3/uL; Eosinophils% 0.3 % (0-5); Hematocrit 34.7 % (37-47); Hemoglobin 10.9 g/dl (12.0-15.0); Lymphocyte # 1.16 X10^3/ul (4.0); Lymphocyte % 15.7 % (19-41); Mean Corp Hgb Conc 31.4 g/gl (32-36); Mean Corpuscular Volume 98.6 fL (81-99); Mean Platelet Vol. 8.9 fl (6.2-12.0); Monocyte# 0.47 X10^3/uL; Monocyte% 6.3 % (0-10); Neutrophil % 76.9 % (47-70); Platelet Count 173 K/mm3 (150-450); RBC Distribution Width CV 14.5 % (11.6-14.6); RBC Distribution Width SD 51.7 fl (35.1-43.9); Red Blood Count 3.52 M/mm3 (4.2-5.4); White Blood Count 7.4 K/mm3 (4.4-11.0)
[2018-10-18 21:53] LABS: POSITIVE COUNT NO; POSITIVE DIFFERENTIAL NO; POSITIVE MORPHOLOGY NO
[2018-10-18] MEDS: MethylPREDNISolone 125 MG/2 ML Vial IV (21:53)
[2018-10-18] MEDS: Ipratropium/Albuterol Sulfate 3 ML AMPUL.NEB INHALATION (21:55)
[2018-10-18 22:03] LABS: Anion Gap 9 (5-15); BUN 10 mg/dL (7-18); BUN/Creat Ratio 12.4 RATIO (10-20); Calcium,Total 8.2 mg/dL (8.5-10.1); Chloride 105 mmol/L (98-107); Creatinine, Serum 0.81 mg/dL (0.55-1.02); EST Glomerular Filtration Rate 78 mL/min (>60); Est Glom Filt Rate - Afr Amer 94 mL/min (>60); Estimated Creatinine Clearance 59.22 ml/min; Glucose 117 mg/dL (74-106); Potassium 3.6 mmol/L (3.5-5.1); Sodium Level 143 mmol/L (136-145)
[2018-10-18 22:54] LABS: BNP,B-Type NATRIURETIC PEPTIDE 20.9 pg/mL (0-100)
[2018-10-18] MEDS: Albuterol 2.5 MG/3 ML VIAL.NEB. INHALATION (23:30)
--- NOTE | 2018-10-18 23:35 | ED.DCSUM_ITS ---
- ER Visit Summary Date of Service: 10/18/18 Chief Complaint: [Shortness of breath] History of Present Illness: The patient is a 57 F [presents the emergency department with complaint of one-week history of increasing shortness of breath. Patient states over the last 2 days her breathing has significantly worsened. Complains of exertional dyspnea. She has a cough that is nonproductive. There is been no fever. Patient normally wears home oxygen 4 L. Patient denies any chest pain but does describe some tightness in her chest. She denies any hemoptysis. She denies recent travel or surgery.] Physical Examination: [HEENT-PERRLA, EOMI. Cranial nerves II through XII grossly intact. TMs clear. Mucous membranes moist. No adenopathy. Cardiovascular-regular rate and rhythm without murmur or ectopy Lungs- diminished breath sounds bilaterally with expiratory wheezes throughout. Patient is tachypneic. No accessory muscle use or retractions. Abdomen-normoactive bowel sounds, soft, nontender, no rebound or rigidity, no peritoneal signs. Extremities-intact ?4, normal range of motion, normal pulses, atraumatic] Test Results: [EKG obtained on arrival showed a sinus rhythm with a ventricular rate of 90 bpm with some nonspecific ST changes. CBC with differential showed a normal white count 7.4, hemoglobin 10.9, hematocrit 35, platelets 173. History is were unremarkable. Troponin was less than 0.015. BNP was 21. Chest x-ray showed chronic changes nothing acute.] Emergency Department Course and Treatment: [Patient received DuoNeb aerosol and Solu-Medrol 125 mg IV. She continued to wheeze and was given an albuterol aerosol. Patient continues to feel dyspneic and wheeze] Treatment Plan: [Admit] Disposition: [] Admit Impression: [COPD exacerbation] This note was generated with [employer] dictation software. It may contain incorrect words, spelling, and punctuation that were not noted in review of the chart prior to signing ED Disposition - Plan for ED Patient: Chief Complaint: Shortness of Breath Referrals: Jennifer Coelho, [facility] [Primary Care Provider] -
--- NOTE | 2018-10-18 23:39 | PCM.HP.STD ---
Problem List (1) COPD with acute exacerbation Status: Acute (2) Elevated d-dimer Status: Inactive (3) Leg edema, left Status: Resolved History of Present Illness Date of Admission: 10/18/18 Chief Complaint: shortness of breath The patient is a 57 year old F with a significant history of CML; stage III severe COPD by gold classification and on home oxygen; hypertension; fibromyalgia, former tobacco use who presented to the emergency department because of progressively worsening shortness of breath that started about 2 days ago.. Has shortness of breath at rest and it increases with mild exertion. Patient reports a dry cough. She denies any fever, chills, sore throat. She reports a mild runny nose. She reported that she had a sick contact from one of a home health nurse aides. The home health doctor of nursing practice had cold-like symptoms. Past Medical History Past Medical History (Chronic Problems): Chronic Problems (Last Reviewed 10/19/18 @ 07:39 by Aashish Martinez MD) HTN (hypertension) (Chronic) Fibromyalgia (Chronic) Nicotine abuse (Chronic) Sinusitis (Chronic) Seasonal allergies (Chronic) RUQ pain (Chronic) Caloric malnutrition (Chronic) Stage 3 severe COPD by GOLD classification (Chronic) Ulcerative colitis (Chronic) Hx of smoking (Chronic) Mid back pain (Chronic) Carpal tunnel syndrome (Chronic) Obesity (BMI 30.0-34.9) (Chronic) Poor compliance with medication (Chronic) Educational circumstance (Chronic) CML (chronic myelocytic leukemia) (Chronic) DREW (generalized anxiety disorder) (Chronic) Emphysema of lung (Chronic) Depression (Chronic) History of cardiac cath (Chronic) 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 History of hysterectomy (Chronic) History of hemorrhoidectomy (Chronic) cataract surgery (Chronic) Medical History: Medical History (Last Reviewed 10/19/18 @ 07:39 by Aashish Martinez MD) HTN (hypertension) (Chronic) I10 Fibromyalgia (Chronic) M79.7 Nicotine abuse (Chronic) Z72.0 AYERS (dyspnea on exertion) (Acute) R06.09 Sinusitis (Chronic) J32.9 Seasonal allergies (Chronic) J30.2 COPD with acute exacerbation (Acute) J44.1 RUQ pain (Chronic) R10.11 Caloric malnutrition (Chronic) E46 Stage 3 severe COPD by GOLD classification (Chronic) J44.9 Chronic hypoxemic respiratory failure (Acute) J96.11 DREW (generalized anxiety disorder) (Chronic) F41.1 Emphysema of lung (Chronic) J43.9 Depression (Chronic) F32.9 History of hysterectomy (Chronic) Z98.890, Z90.710 cataract surgery (Chronic) Allergies Penicillins Allergy (Severe, Verified 09/12/18 12:39) Hives azithromycin Adverse Reaction (Severe, Verified 09/12/18 12:39) Diarrhea codeine Adverse Reaction (Severe, Verified 09/12/18 12:39) Vomiting ondansetron HCl [From Zofran (as hydrochloride)] Adverse Reaction (Severe, Verified 09/12/18 12:39) Nausea pregabalin [From Lyrica] Adverse Reaction (Severe, Verified 09/12/18 12:39) i can't see propoxyphene napsylate [From Darvocet-N 100] Adverse Reaction (Severe, Verified 09/12/18 12:39) Vomiting Sulfa (Sulfonamide Antibiotics) Adverse Reaction (Intermediate, Verified 09/12/18 12:39) Hives Home Medications: Ambulatory Orders Medication Instructions Recorded ALPRAZolam [Xanax] 0.5 mg PO Q6H PRN PRN 10/18/18 Albuterol Aerosols [Ventolin 2.5 mg INHALATION Q4H PRN PRN 10/18/18 Aerosols] Albuterol Inhaler [Ventolin Hfa 2 puff INHALATION Q4H PRN PRN 10/18/18 (SP)] Budesonide/Formoterol Fumarate 2 puff IH BID 10/18/18 [Symbicort 160-4.5 Mcg Inhaler] Buspirone HCl 20 mg PO TID 10/18/18 Diltiazem CD [Cardizem CD] 240 mg PO DAILY 10/18/18 Fexofenadine HCl [Wal-Fex Allergy] 180 mg PO DAILY 10/18/18 Fluticasone Propionate [Flovent 1 puff IH BID 10/18/18 Diskus] Ipratropium/Albuterol Sulfate 3 ml INHALATION Q4H PRN PRN 10/18/18 [Duoneb] Omeprazole 40 mg PO DAILY 10/18/18 Oxycodone [Oxyir] 5 mg PO TID PRN PRN 10/18/18 Potassium Chloride [Klor-Con] 20 meq PO BID 10/18/18 Prednisone 10 mg PO DAILY 10/18/18 Prochlorperazine Maleate 10 mg PO DAILY 10/18/18 [Compazine] Sertraline HCl [Zoloft] 75 mg PO DAILY 10/18/18 Tiotropium Hankinson [Spiriva] 2 puff IH DAILY 10/18/18 Imatinib Mesylate 400 mg PO DAILY 10/19/18 Surgical History: Surgical History (Last Reviewed 10/19/18 @ 07:39 by Aashish Martinez MD) History of cardiac cath (Chronic) Z98.890 History of cranial surgery (Chronic) Z98.890 due to closed fontanell History of hemorrhoidectomy (Chronic) Z98.890 Surgical History: hysterectomy, - - Hemorrhoidectomy, 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 Psychiatric History: Anxiety PHYSICAL EDUCATION PROFESSOR History: No pertinent PHYSICAL EDUCATION PROFESSOR history Lives: Alone Smoking Status: Former smoker Tobacco Use: Cigarettes - *Family History Maternal Family History: Family History (Last Reviewed 10/19/18 @ 01:51 by Aashish Martinez MD) Mother Ovarian cancer Brother Heart disease Grandmother Heart disease Grandfather Heart disease History Items: - - mother with ovarian cancer; denies family history of any blood disorders or blood cancers Paternal Family History: Family History (Last Reviewed 10/19/18 @ 01:51 by Aashish Martinez MD) Mother Ovarian cancer Brother Heart disease Grandmother Heart disease Grandfather Heart disease History Items: Diabetes, - - father was exposed from agent orange Review of Systems Constitutional: Denies: Chills, Fever, Weight Change HEENT: Reports: Sinus Drainage. Denies: Head Aches, Sinus Congestion Cardiovascular: Denies: Chest Pain, Orthopnea, Palpitations Respiratory: Reports: Cough, Shortness of breath at rest. Denies: Sputum production Gastrointestinal: Reports: Nausea - Chronic and attributes to chemotherapy pill., Vomiting - Chronic and attributes to chemotherapy pill.. Denies: Abdominal Pain Genitourinary: Denies: Dysuria Musculoskeletal: Denies: Joint Pain, Joint Tenderness Skin: Denies: Rash, Wounds Neurological: Denies: Numbness, Tingling, Focal weakness Psychiatric: Denies: Anxiety, Depression, Homicidal Ideations, Suicidal Ideations Hematologic/ Lymphatic: Denies: Easy Bruising, Easy Bleeding VTE Information - Inpt Only VTE Present on Admission: No VTE Mechan Device Prophylaxis: None VTE Pharm Prophylaxis ordered?: Yes - Physical Exam General: Alert, Oriented x3, Cooperative HEENT: Atraumatic, PERRLA, EOMI, Normocephalic Neck: Supple, No JVD, Negative Carotid Bruits Lungs: Wheezes - Significant wheezing Cardiovascular: Regular rate, No murmurs Abdomen: Bowel Sounds Present, Soft, Non Tender Extremities: No edema, Capillary Refill Less than 3 Seconds Skin: No rashes, No breakdown Musculoskeletal: No Tenderness to Palpation of Joints or Extremities Neurological: Cranial nerves II-XII grossly intact Psych/Mental Status: Normal Affect, Appropriate Vital Signs Temp Pulse Resp BP Pulse Ox 98.1 F 92 19 H 132/94 H 94 10/18/18 23:07 10/18/18 23:30 10/18/18 23:30 10/18/18 23:30 10/18/18 23:30 Oxygen Flow Rate (L/min) 2 Oxygen Delivery Method Nasal Cannula Weight: 90.7 kg Body Mass Index (BMI) 37.8 Laboratory Tests Past 24 Hrs 10/18/18 10/18/18 10/18/18 21:28 21:28 21:28 WBC 7.4 RBC 3.52 L Hgb 10.9 L Hct 34.7 L MCV 98.6 MCH 31.0 MCHC 31.4 L RDW 14.5 RDW Differential 51.7 H Plt Count 173 MPV 8.9 Immature Gran % (Auto) 0.700 Neut % (Auto) 76.9 H Lymph % (Auto) 15.7 L Hendricks % (Auto) 6.3 Eos % (Auto) 0.3 Baso % (Auto) 0.1 Absolute Neuts (auto) 5.7 Absolute Lymphs (auto) 1.16 Total Counted Not Reportable Sodium 143 Potassium 3.6 Chloride 105 Carbon Dioxide 29.0 Anion Gap 9 BUN 10 Creatinine 0.81 Estim Creat Clear Calc 59.22 Est GFR (MDRD) Af Amer 94 Est GFR (MDRD) Non-Af 78 BUN/Creatinine Ratio 12.4 Glucose 117 H Calcium 8.2 L Troponin I < 0.015 B-Natriuretic Peptide 20.9 Assessment/Plan All Active Problems (Last Reviewed 10/19/18 @ 07:39 by Aashish Martinez MD) Leg edema, left (Resolved) AYERS (dyspnea on exertion) (Acute) COPD with acute exacerbation (Acute) Chronic hypoxemic respiratory failure (Acute) Acute and chronic respiratory failure with hypoxia (Acute) Pulmonary embolism (Resolved) The patient is a 57 year old F with a significant history of stage III severe COPD by gold classification and on home oxygen; hypertension; fibromyalgia, former tobacco use who presented to the emergency department because of progressively worsening shortness of breath that started about 2 days ago consistent with likely acute exacerbation of her underlying COPD. Acute exacerbation of COPD CXR independently reviewed showed no infiltrate but with probable some atelectasis on the right lower lobe. Scheduled DuoNeb Albuterol as needed Patient received Solu-Medrol at emergency department. Solu-Medrol continued. Azithromycin ordered. Oxygen as needed. We will get rapid influenza screen. If rapid influenza screen is negative and if patient's symptoms persist consider a comprehensive respiratory pathogen panel test. Hypertension On admission her blood pressure was not within goal. Not on home blood pressure medications Trend blood pressures at this time. CML Imatinib continued Compazine for nausea and vomiting continued Phenergan as needed ordered. Anxiety disorder Buspirone continued Xanax as needed continued DVT prophylaxis Lovenox continued Code Visit Inpatient E&M: 49253 Init Hosp L3
[2018-10-19] VITALS (17 sets, daily range): BP systolic 122–142; BP diastolic 81–91; PULSE 94–117; RESP 12–24; TEMP 36.7–37.1; O2SAT 94–97; BMI 34.0
[2018-10-19] MEDS: 0.9% NaCl Peripheral Flush Adult/Peds IV ×5 (01:42→21:42)
[2018-10-19] MEDS: Ipratropium/Albuterol Sulfate 3 ML AMPUL.NEB INHALATION ×6 (02:00→22:04)
--- NOTE | 2018-10-19 07:37 | NURSING ---
[facility] VERIFIED BY PHARMACY AND LOCKED IN PT'S DRAWER
[2018-10-19] MEDS: Sertraline 50 MG Tablet 75 MG PO (08:40)
[2018-10-19] MEDS: Enoxaparin 40 MG/0.4 ML Syringe SC (08:40)
[2018-10-19] MEDS: proCHLORPERazine 5 MG Tablet 10 MG PO (08:41)
[2018-10-19] MEDS: Pantoprazole Sodium 40 MG Tablet PO (08:41)
[2018-10-19] MEDS: Loratadine 10 MG Tablet PO (08:41)
[2018-10-19] MEDS: dilTIAZem CD 240 MG Capsule PO (08:42)
[2018-10-19] MEDS: oxyCODONE 5 MG Tablet PO ×2 (08:42→17:32)
--- NOTE | 2018-10-19 09:49 | PCM.PROGNOTE ---
Subjective: Chief complaint: Follow-up after admission for acute COPD exacerbation. Patient seen and examined. No acute events overnight. She still complaining of shortness of breath at rest and wheezing, no improvement. Reported cough, no sputum production. She is afebrile, blood pressure and heart rate are stable, pulse ox is 95% on 4 L. - Physical Exam General: Alert, Oriented x3, Cooperative, - - Moderately short of breath. HEENT: Atraumatic, PERRLA, EOMI, Normocephalic Oral: Moist Mucosa, No Gingival or Mucosal Lesions/ Ulcerations Neck: Supple, No JVD, Negative Carotid Bruits, Trachea Midline, Thyroid Normal Size and Texture Lungs: No rales, Short of Breath, Tachypneic, Wheezes, - - Markedly decreased sounds bilateral, bilateral expiratory wheezes. Cardiovascular: Regular rate, Regular Rhythm, Normal S1, Normal S2, No murmurs Abdomen: Bowel Sounds Present, Soft, Non Tender, Non-Distended, No Hepato-splenomegaly, Obese Extremities: No clubbing, No cyanosis, No edema Skin: No rashes, No breakdown Lymphatic: No Cervical, Supraclavicular, or Inguinal Adenopathy Neurological: Cranial nerves II-XII grossly intact, Neuro grossly intact Psych/Mental Status: Normal Affect, Appropriate, Alert and oriented to time, place, person, mood and affect Vital Signs Temp Pulse Resp BP Pulse Ox 98.7 F 100 12 122/81 H 95 10/19/18 08:14 10/19/18 08:28 10/19/18 08:14 10/19/18 08:14 10/19/18 08:14 Oxygen Flow Rate (L/min) 4 Oxygen Delivery Method Nasal Cannula Weight: 180 lb 1.883 oz Body Mass Index (BMI) 34.0 Intake and Output for Last 24 Hours 10/17/18 10/18/18 10/19/18 23:59 23:59 23:59 Intake Total 100 / 100 Balance 100 / 100 Microbiology Past 72 Hours 10/19/18 01:10 Influenza Types A,B Direct FA (BLACK) - Final Mucosa - Nasopharyngeal Laboratory Tests Past 24 Hrs 10/18/18 10/18/18 10/18/18 21:28 21:28 21:28 WBC 7.4 RBC 3.52 L Hgb 10.9 L Hct 34.7 L MCV 98.6 MCH 31.0 MCHC 31.4 L RDW 14.5 RDW Differential 51.7 H Plt Count 173 MPV 8.9 Immature Gran % (Auto) 0.700 Neut % (Auto) 76.9 H Lymph % (Auto) 15.7 L [place] % (Auto) 6.3 Eos % (Auto) 0.3 Baso % (Auto) 0.1 Absolute Neuts (auto) 5.7 Absolute Lymphs (auto) 1.16 Total Counted Not Reportable Sodium 143 Potassium 3.6 Chloride 105 Carbon Dioxide 29.0 Anion Gap 9 BUN 10 Creatinine 0.81 Estim Creat Clear Calc 59.22 Est GFR (MDRD) Af Amer 94 Est GFR (MDRD) Non-Af 78 BUN/Creatinine Ratio 12.4 Glucose 117 H Calcium 8.2 L Troponin I < 0.015 B-Natriuretic Peptide 20.9 Clinical Impression(s) from Imaging Studies Chest X-Ray 10/18/18 21:45 IMPRESSION: Borderline cardiac size, likely basilar scarring, areas of hyperinflation are stable findings. Recurrent opacification left costophrenic angle, possible pleural thickening/effusion. No pulmonary edema, congestive heart failure or confluent pneumonia. Electronically Signed: Kim Copeland MD at 0:31 EST , Service support , Medical Necessity - Tobacco Use Smoking Status: Former smoker Tobacco Use: Cigarettes Assessment/Plan All Active Problems (Last Updated 10/19/18 @ 09:51 by Marleni Rea MD) Chronic hypoxemic respiratory failure (Acute) This is a 57 years old female patient presented to the ED because of worsening shortness of breath and she was admitted for acute COPD exacerbation. #1 acute COPD exacerbation: She is on IV steroids, bronchodilators and IV Zithromax. She remains on 4 L of oxygen which is her baseline at home but she is very wheezy, dyspneic and tachypneic. Chest x-ray showed no acute findings, pneumonia ruled out. Nasal swab for influenza a and B were negative. Blood cultures are pending. Plan: Continue same treatment, increase IV steroids to 60 mg IV every 6 hours, will do a respiratory panel for viruses. #2 chronic hypoxic respiratory failure: Secondary to above, patient has been on oxygen at home at 4 L. At this time, she is on 4 L. She is dyspneic, tachypneic, chest auscultation reveals markedly decreased breath sounds. Plan as above. #3 chronic myeloid leukemia: Stable, continue Gleevec. #4 history of ulcerative colitis: Stable, no active symptoms. She is not on any maintenance treatment. #5 chronic sinus tachycardia: Heart rate has been around 100, stable, continue Cardizem. #6 anxiety/depression: Continue Zoloft, BuSpar and Xanax. #7 DVT prophylaxis: Subcu Lovenox. This note was generated with [employer] [place] dictation software. It may contain incorrect words, spelling, and punctuation that were not noted in checking the note before signing. Code Visit Inpatient E&M: 22085 Subs Hosp L2
[2018-10-19] MEDS: MethylPREDNISolone 125 MG/2 ML Vial 60 MG IV ×3 (11:55→23:38)
[2018-10-19] MEDS: proCHLORPERazine 5 MG Tablet PO (17:31)
[2018-10-19] MEDS: busPIRone 5 MG Tablet 20 MG PO (21:41)
[2018-10-19] MEDS: ALPRAZolam 0.5 MG Tablet PO (21:46)
[2018-10-19] MEDS: 0.9% NaCl IVPB Med Flush (250 mL) 15 ML IV (21:50)
[2018-10-20] VITALS (14 sets, daily range): BP systolic 114–130; BP diastolic 81–86; PULSE 93–109; RESP 16–22; TEMP 36.9–37.5; O2SAT 95–97
[2018-10-20] MEDS: Ipratropium/Albuterol Sulfate 3 ML AMPUL.NEB INHALATION ×6 (03:18→22:34)
[2018-10-20] MEDS: proCHLORPERazine 5 MG Tablet PO ×3 (06:23→20:59)
[2018-10-20] MEDS: MethylPREDNISolone 125 MG/2 ML Vial 60 MG IV ×4 (06:24→23:37)
[2018-10-20] MEDS: 0.9% NaCl Peripheral Flush Adult/Peds IV ×7 (06:24→21:00)
[2018-10-20] MEDS: busPIRone 5 MG Tablet 20 MG PO ×3 (06:24→20:59)
[2018-10-20] MEDS: Enoxaparin 40 MG/0.4 ML Syringe SC (08:07)
[2018-10-20] MEDS: Loratadine 10 MG Tablet PO (08:08)
[2018-10-20] MEDS: dilTIAZem CD 240 MG Capsule PO (08:08)
[2018-10-20] MEDS: oxyCODONE 5 MG Tablet PO ×2 (08:08→16:29)
[2018-10-20] MEDS: Pantoprazole Sodium 40 MG Tablet PO (08:08)
[2018-10-20] MEDS: Sertraline 50 MG Tablet 75 MG PO (08:08)
--- NOTE | 2018-10-20 09:47 | PCM.PROGNOTE ---
Subjective: Chief complaint: Follow-up after admission for acute COPD exacerbation. Patient seen and examined. No acute events overnight. She reported minimal improvement of her symptoms, still having very tight chest and wheezing. Still complaining of dry cough. Remained on 4 L of oxygen which is her baseline at home, other vital signs are stable. - Physical Exam General: Alert, Oriented x3, Cooperative, - - Moderately short of breath. HEENT: Atraumatic, PERRLA, EOMI, Normocephalic Oral: Moist Mucosa, No Gingival or Mucosal Lesions/ Ulcerations Neck: Supple, No JVD, Negative Carotid Bruits, Trachea Midline, Thyroid Normal Size and Texture Lungs: No rales, Diminished, Short of Breath, Wheezes, - - Markedly decreased breath sounds bilateral, bilateral expiratory wheezes. Cardiovascular: Regular rate, Regular Rhythm, Normal S1, Normal S2, PMI Normal, Tachycardic Abdomen: Bowel Sounds Present, Soft, Non Tender, Non-Distended, No Hepato-splenomegaly Extremities: No clubbing, No cyanosis, No edema Skin: No rashes, No breakdown Lymphatic: No Cervical, Supraclavicular, or Inguinal Adenopathy Neurological: Cranial nerves II-XII grossly intact, Neuro grossly intact Psych/Mental Status: Normal Affect, Appropriate Vital Signs Temp Pulse Resp BP Pulse Ox 98.9 F 100 16 114/83 H 95 10/20/18 07:52 10/20/18 07:54 10/20/18 07:52 10/20/18 07:52 10/20/18 07:52 Oxygen Flow Rate (L/min) 4 Oxygen Delivery Method Nasal Cannula Weight: 180 lb 1.883 oz Body Mass Index (BMI) 34.0 Intake and Output for Last 24 Hours 10/18/18 10/19/18 10/20/18 23:59 23:59 23:59 Intake Total 100 / 100 609 / 609 Balance 100 / 100 609 / 609 Microbiology Past 72 Hours 10/19/18 11:15 Respiratory Panel (PCR) - Final Mucosa - Nasopharyngeal 10/19/18 01:10 Influenza Types A,B Direct FA (BLACK) - Final Mucosa - Nasopharyngeal Medical Necessity - Tobacco Use Smoking Status: Former smoker Tobacco Use: Cigarettes Assessment/Plan All Active Problems (Last Updated 10/19/18 @ 09:51 by Marleni Rea MD) Chronic hypoxemic respiratory failure (Acute) This is a 57 years old female patient presented to the ED because of worsening shortness of breath and she was admitted for acute COPD exacerbation. #1 acute COPD exacerbation: She is on IV steroids, bronchodilators and IV Zithromax. She remains on 4 L of oxygen which is her baseline at home but she is very wheezy, dyspneic and tachypneic. Chest x-ray showed no acute findings, pneumonia ruled out. Nasal swab for influenza a and B were negative. Respiratory panel for viruses were negative. Blood cultures are pending. Plan: Continue same treatment. #2 chronic hypoxic respiratory failure: Secondary to above, patient has been on oxygen at home at 4 L. At this time, she is on 4 L. She reported minimal improvement. Plan to continue same treatment. #3 chronic myeloid leukemia: Stable, continue Gleevec. #4 history of ulcerative colitis: Stable, no active symptoms. She is not on any maintenance treatment. #5 chronic sinus tachycardia: Heart rate has been around 100, stable, continue Cardizem. #6 anxiety/depression: Continue Zoloft, BuSpar and Xanax. #7 DVT prophylaxis: Subcu Lovenox. This note was generated with [employer] dictation software. It may contain incorrect words, spelling, and punctuation that were not noted in checking the note before signing. Code Visit Inpatient E&M: 26430 Subs Hosp L2
[2018-10-20] MEDS: ALPRAZolam 0.5 MG Tablet PO (20:55)
[2018-10-21] VITALS (13 sets, daily range): BP systolic 117–137; BP diastolic 85–88; PULSE 93–110; RESP 16–20; TEMP 36.7–37.3; O2SAT 94–96
[2018-10-21] MEDS: Ipratropium/Albuterol Sulfate 3 ML AMPUL.NEB INHALATION ×6 (02:53→22:41)
[2018-10-21] MEDS: proCHLORPERazine 5 MG Tablet PO ×3 (06:17→21:14)
[2018-10-21] MEDS: busPIRone 5 MG Tablet 20 MG PO ×3 (06:17→21:14)
[2018-10-21] MEDS: MethylPREDNISolone 125 MG/2 ML Vial 60 MG IV ×4 (06:17→23:57)
[2018-10-21] MEDS: oxyCODONE 5 MG Tablet PO ×3 (06:25→21:13)
[2018-10-21] MEDS: Enoxaparin 40 MG/0.4 ML Syringe SC (08:12)
[2018-10-21] MEDS: Sertraline 50 MG Tablet 75 MG PO (08:12)
[2018-10-21] MEDS: Loratadine 10 MG Tablet PO (08:12)
[2018-10-21] MEDS: Pantoprazole Sodium 40 MG Tablet PO (08:12)
[2018-10-21] MEDS: dilTIAZem CD 240 MG Capsule PO (08:12)
--- NOTE | 2018-10-21 11:00 | CASEMGMT ---
ESTEPHANIA JUNIOR Face to Face with patient for initial transition planning/care coordination assessment. RN CM introduced self and role at [facility]. Patient lying in bed, alert and oriented. Patient willing to participate in assessment and is able to answer all questions appropriately. Care providers, pharmacy, and demographics verified. Patient wishes to discharge home with resumption of HHC with [facility]. Patient states she has no further needs or concerns at this time. CM to follow for discharge planning needs that may arise. PCP: Jennifer Coelho CNP Specialists: None Preferred Pharmacy: [facility] Insurance: [employer] Prescription Benefit: Yes Living Will/HPOA: Yes, uncle Joshua Craft HPOA LNOK: Uncle Living Arrangements: Patient lives alone in handicap accessible apartment. Transportation: Patient states she has CM that provides transportation. DME/HHC: Patient states she has raised toilet, grab bars, rollator, nebulizer, and home oxygen at 4 LPM through [employer]. retirement and [employer] through [facility]. Aides come for 2 hours per week. Disposition Plan: Patient to discharge home with resumption of HHC and follow-up plans in place. Irina WERNER, RN, CM
--- NOTE | 2018-10-21 12:48 | PCM.PN.HOSP ---
Subjective: Patient is short of breath. Still hypoxic on 4 L of oxygen through nasal cannula. Patient has advanced COPD with about 40 pack years of smoking. Vitals/I&O's: Vital Signs Temp Pulse Resp BP Pulse Ox 99.2 F H 101 H 19 H 137/88 H 94 10/21/18 08:17 10/21/18 12:01 10/21/18 12:01 10/21/18 08:17 10/21/18 08:17 Oxygen Flow Rate (L/min) 4 Oxygen Delivery Method Nasal Cannula Weight: 180 lb 1.883 oz Body Mass Index (BMI) 34.0 Intake and Output for Last 24 Hours 10/19/18 10/20/18 10/21/18 23:59 23:59 23:59 Intake Total 100 / 100 609 / 609 1125 / 1125 Balance 100 / 100 609 / 609 1125 / 1125 General: Alert, Oriented x3, Cooperative HEENT: Atraumatic, PERRLA, EOMI, Normocephalic Neck: Supple, No JVD, Negative Carotid Bruits Lungs: Diminished - Air entry severely diminished., Rhonchi, Short of Breath, Tachypneic, Wheezes Cardiovascular: Regular rate, Regular Rhythm, Normal S1, Normal S2, No murmurs Abdomen: Bowel Sounds Present, Soft, Non Tender, Non-Distended Extremities: No edema, Capillary Refill Less than 3 Seconds Skin: No rashes, No breakdown Musculoskeletal: No Tenderness to Palpation of Joints or Extremities, Arthritic Changes, Muscle Wasting Neurological: Cranial nerves II-XII grossly intact, Deep Tendon Reflexes 2+/4 and Symmetrical, Neuro grossly intact Psych/Mental Status: Normal Affect, Appropriate Microbiology Past 72 Hours 10/18/18 21:48 Blood Culture (Wb) #2 - Anticubital Left Blood Culture - Preliminary No growth in 48 hours. 10/18/18 22:00 Blood Culture (Wb) - Left Hand Blood Culture - Preliminary No growth in 48 hours. 10/19/18 11:15 Mucosa - Nasopharyngeal Respiratory Panel (PCR) - Final 10/19/18 01:10 Mucosa - Nasopharyngeal Influenza Types A,B Direct FA (BLACK) - Final Current Medications Acetaminophen (Tylenol) 650 mg PO Q6H PRN PRN PRN Reason: Mild Pain (scale 0-3)/T>100.7 Albuterol Sulfate (Ventolin Aerosols) 2.5 mg INHALATION Q2H PRN PRN PRN Reason: SHORTNESS OF BREATH Albuterol/Ipratropium (Duoneb) 3 ml INHALATION Q4H.RT [facility] Last Admin: 10/21/18 11:24 Dose: 3 ml Alprazolam (Xanax) 0.5 mg PO Q6H PRN PRN PRN Reason: ANXIETY Last Admin: 10/20/18 20:55 Dose: 0.5 mg Bisacodyl (Dulcolax) 5 mg PO DAILY PRN PRN PRN Reason: Constipation Buspirone HCl (Buspar) 20 mg PO TID [facility] Last Admin: 10/21/18 06:17 Dose: 20 mg Diltiazem HCl (Cardizem Cd) 240 mg PO DAILY [facility] Last Admin: 10/21/18 08:12 Dose: 240 mg Enoxaparin Sodium (Lovenox) 40 mg SC DAILY [facility] Last Admin: 10/21/18 08:12 Dose: 40 mg Sodium Chloride () 250 mls @ 15 mls/hr IV .[id number] PRN PRN Reason: SALINE FLUSH Last Admin: 10/19/18 21:50 Dose: 15 mls/hr Imatinib Mesylate (Gleevec) 400 mg PO DAILY@1300 [facility] Last Admin: 10/20/18 12:40 Dose: 400 mg Loratadine (Claritin) 10 mg PO DAILY [facility] Last Admin: 10/21/18 08:12 Dose: 10 mg Magnesium Hydroxide (Milk Of Magnesia) 30 ml PO DAILY PRN PRN PRN Reason: Constipation Methylprednisolone (Solu-Medrol) 60 mg IV Q6 [facility] Last Admin: 10/21/18 06:17 Dose: 60 mg Oxycodone HCl (Oxyir) 5 mg PO TID PRN PRN PRN Reason: PAIN Last Admin: 10/21/18 06:25 Dose: 5 mg Pantoprazole Sodium (Protonix) 40 mg PO DAILY [facility] Last Admin: 10/21/18 08:12 Dose: 40 mg Potassium Chloride (K-Dur) 20 meq PO BIDCM [facility] Last Admin: 10/21/18 08:12 Dose: 20 meq Prochlorperazine Maleate (Compazine Tablet) 5 mg PO TID [facility] Last Admin: 10/21/18 06:17 Dose: 5 mg Promethazine HCl (Phenergan) 6.25 mg IV Q6H PRN PRN PRN Reason: NAUSEA/VOMITING Sertraline HCl (Zoloft) 75 mg PO DAILY [facility] Last Admin: 10/21/18 08:12 Dose: 75 mg Sodium Chloride () 5 - 15 ml IV UD PRN PRN Reason: SALINE FLUSH Last Admin: 10/20/18 21:00 Dose: 10 ml Medical Necessity - Tobacco Use Smoking Status: Former smoker Tobacco Use: Cigarettes Assessment/Plan All Active Problems (Last Updated 10/19/18 @ 09:51 by Marleni Rea MD) Chronic hypoxemic respiratory failure (Acute) This is a 57 years old female patient presented to the ED because of worsening shortness of breath, COPD with 40 pack years of smoking was admitted for acute COPD exacerbation. #1 acute COPD exacerbation: She is on IV steroids, bronchodilators and IV Zithromax. She remains on 4 L of oxygen which is her baseline at home but she is very wheezy, dyspneic and tachypneic. Chest x-ray showed no acute findings, pneumonia ruled out. Nasal swab for influenza a and B were negative. Respiratory panel for viruses were negative. Blood cultures are negative. Continue bronchodilator, Solu-Medrol. Mucinex added. She completed azithromycin. Vest therapy ordered. #2 chronic hypoxic respiratory failure: Secondary to above, patient has been on oxygen at home at 4 L. At this time, she is on 4 L. She reported minimal improvement. Plan to continue same treatment. #3 chronic myeloid leukemia: Stable, continue Gleevec. #4 history of ulcerative colitis: Stable, no active symptoms. She is not on any maintenance treatment. #5 chronic sinus tachycardia: Heart rate has been around 100, stable, continue Cardizem. #6 anxiety/depression: Continue Zoloft, BuSpar and Xanax. #7 DVT prophylaxis: Subcu Lovenox. This note was generated with [employer] dictation software. Every effort was made to ensure accuracy, however computerized hot blast worker mistakes may persist. Code Visit Inpatient E&M: 93588 [facility] Hosp L3
[2018-10-21] MEDS: guaiFENesin 1,200 MG Tablet 1200 MG PO ×2 (14:49→21:14)
[2018-10-21] MEDS: 0.9% NaCl Peripheral Flush Adult/Peds IV (23:59)
[2018-10-22] VITALS (12 sets, daily range): BP systolic 130–144; BP diastolic 84–99; PULSE 83–109; RESP 16–20; TEMP 36.7–37; O2SAT 92–98
[2018-10-22] MEDS: Ipratropium/Albuterol Sulfate 3 ML AMPUL.NEB INHALATION ×6 (02:59→23:21)
[2018-10-22] MEDS: oxyCODONE 5 MG Tablet PO (03:49)
[2018-10-22] MEDS: proCHLORPERazine 5 MG Tablet PO ×3 (05:58→21:13)
[2018-10-22] MEDS: MethylPREDNISolone 125 MG/2 ML Vial 60 MG IV ×2 (05:58→11:06)
[2018-10-22] MEDS: busPIRone 5 MG Tablet 20 MG PO ×3 (05:58→21:13)
[2018-10-22] MEDS: 0.9% NaCl Peripheral Flush Adult/Peds IV (05:59)
[2018-10-22 06:12] LABS: Anion Gap 9 (5-15); BUN 25 mg/dL (7-18); BUN/Creat Ratio 26.2 RATIO (10-20); Calcium,Total 8.3 mg/dL (8.5-10.1); Chloride 107 mmol/L (98-107); Creatinine, Serum 0.95 mg/dL (0.55-1.02); EST Glomerular Filtration Rate 64 mL/min (>60); Est Glom Filt Rate - Afr Amer 78 mL/min (>60); Estimated Creatinine Clearance 50.49 ml/min; Glucose 179 mg/dL (74-106); Potassium 3.9 mmol/L (3.5-5.1); Sodium Level 143 mmol/L (136-145)
[2018-10-22 06:44] LABS: Absolute Lymphocyte Count 0.32 X10^3/ul (0.83-4.51); Absolute Neutrophil Count 9.2 X10^3/uL (2.0-7.7); Hematocrit 32.2 % (37-47); Hemoglobin 10.1 g/dl (12.0-15.0); Lymphocyte # 0.32 X10^3/ul (4.0); Lymphocyte % 3.2 % (19-41); Mean Corp Hgb Conc 31.4 g/gl (32-36); Mean Corpuscular Hgb 31.5 pg (27.0-32.0); Mean Corpuscular Volume 100.3 fL (81-99); Mean Platelet Vol. 9.3 fl (6.2-12.0); Monocyte# 0.39 X10^3/uL; Monocyte% 3.9 % (0-10); Neutrophil # 9.16 X10^3/uL (2.7-7.7); Platelet Count 229 K/mm3 (150-450); RBC Distribution Width CV 14.3 % (11.6-14.6); RBC Distribution Width SD 50.8 fl (35.1-43.9); Red Blood Count 3.21 M/mm3 (4.2-5.4)
[2018-10-22 06:48] LABS: Differential Indicated SCAN CRITERIA MET; POSITIVE COUNT NO; POSITIVE DIFFERENTIAL YES; POSITIVE MORPHOLOGY NO
--- NOTE | 2018-10-22 07:28 | RAD_ITS ---
STUDY: X-RAY CHEST REASON FOR EXAM: Female, 57 years old. Shortness of breath. History of COPD. TECHNIQUE: PA and lateral views of the chest. COMPARISON: Comparison is made with prior study dated October 18, 2018. FINDINGS: Stable pleural parenchymal changes at the lung bases worse on the left side. There is mild cardiac enlargement. Normal mediastinum and sven. Normal visualized pulmonary arteries. There is atherosclerotic tortuosity of the aortic arch and descending thoracic aorta. There is a dextroscoliosis of the thoracic spine. Normal visualized ribs, clavicles, and shoulders. There is no demonstrated abnormality of the visualized soft tissue structures of the upper abdomen. RAD/Chest PA and Lateral IMPRESSION: Stable pleural parenchymal changes at the left lung base worse on the left side. Electronically Signed: Presley Charles MD at 15:59 EST Tel [phone], Service support ,
[2018-10-22 08:17] LABS: BNP,B-Type NATRIURETIC PEPTIDE 58.8 pg/mL (0-100)
[2018-10-22] MEDS: Sertraline 50 MG Tablet 75 MG PO (08:37)
[2018-10-22] MEDS: Pantoprazole Sodium 40 MG Tablet PO (08:37)
[2018-10-22] MEDS: Enoxaparin 40 MG/0.4 ML Syringe SC (08:39)
[2018-10-22] MEDS: dilTIAZem CD 240 MG Capsule PO (08:39)
[2018-10-22] MEDS: Loratadine 10 MG Tablet PO (08:39)
[2018-10-22] MEDS: guaiFENesin 1,200 MG Tablet 1200 MG PO ×2 (08:39→21:13)
--- NOTE | 2018-10-22 11:57 | PCM.PN.HOSP ---
Subjective: Patient does not for the improvement in shortness of breath or wheezing. Chest tightness and chest congestion. No fever. Vitals/I&O's: Vital Signs Temp Pulse Resp BP Pulse Ox 98.6 F 105 H 16 143/84 H 95 10/22/18 11:03 10/22/18 11:03 10/22/18 11:03 10/22/18 11:03 10/22/18 11:03 Oxygen Flow Rate (L/min) 4 Oxygen Delivery Method Nasal Cannula Weight: 180 lb 1.883 oz Body Mass Index (BMI) 34.0 Intake and Output for Last 24 Hours 10/20/18 10/21/18 10/22/18 23:59 23:59 23:59 Intake Total 609 / 609 2049 / 2049 600 / 600 Balance 609 / 609 2049 600 / 600 General: Alert, Oriented x3, Cooperative HEENT: Atraumatic, PERRLA, EOMI, Normocephalic Neck: Supple, No JVD, Negative Carotid Bruits Lungs: Diminished - Air entry diffusely diminished, Rhonchi - Expiratory rhonchi and wheezing present, Short of Breath Cardiovascular: Regular rate, Normal S1, Normal S2, No murmurs Abdomen: Bowel Sounds Present, Soft, Non Tender, Non-Distended Extremities: No edema, Capillary Refill Less than 3 Seconds Skin: No rashes, No breakdown Musculoskeletal: No Tenderness to Palpation of Joints or Extremities, Arthritic Changes Neurological: Cranial nerves II-XII grossly intact Psych/Mental Status: Normal Affect, Appropriate Microbiology Past 72 Hours 10/18/18 21:48 Blood Culture (Wb) #2 - Anticubital Left Blood Culture - Preliminary No growth in 48 hours. 10/18/18 22:00 Blood Culture (Wb) - Left Hand Blood Culture - Preliminary No growth in 48 hours. 10/19/18 11:15 Mucosa - Nasopharyngeal Respiratory Panel (PCR) - Final Laboratory Results 10/22/18 05:30: WBC 10.0, RBC 3.21 L, Hgb 10.1 L, Hct 32.2 L, MCV 100.3 H, MCH 31.5, MCHC 31.4 L, RDW 14.3, RDW Differential 50.8 H, Plt Count 229, MPV 9.3, Immature Gran % (Auto) 0.900, Neut % (Auto) 92.0 H, Lymph % (Auto) 3.2 L, [place] % (Auto) 3.9, Eos % (Auto) 0.0, Baso % (Auto) 0.0, Absolute Neuts (auto) 9.2 H, Absolute Lymphs (auto) 0.32 L, Total Counted Not Reportable 10/22/18 05:30: Sodium 143, Potassium 3.9, Chloride 107, Carbon Dioxide 27.0, Anion Gap 9, BUN 25 H, Creatinine 0.95, Estim Creat Clear Calc 50.49, Est GFR (MDRD) Af Amer 78, Est GFR (MDRD) Non-Af 64, BUN/Creatinine Ratio 26.2 H, Glucose 179 H, Calcium 8.3 L 10/22/18 05:30: B-Natriuretic Peptide 58.8 Current Medications Acetaminophen (Tylenol) 650 mg PO Q6H PRN PRN PRN Reason: Mild Pain (scale 0-3)/T>100.7 Albuterol Sulfate (Ventolin Aerosols) 2.5 mg INHALATION Q2H PRN PRN PRN Reason: SHORTNESS OF BREATH Albuterol/Ipratropium (Duoneb) 3 ml INHALATION Q4H.RT [facility] Last Admin: 10/22/18 11:18 Dose: 3 ml Alprazolam (Xanax) 0.5 mg PO Q6H PRN PRN PRN Reason: ANXIETY Last Admin: 10/20/18 20:55 Dose: 0.5 mg Bisacodyl (Dulcolax) 5 mg PO DAILY PRN PRN PRN Reason: Constipation Buspirone HCl (Buspar) 20 mg PO TID [facility] Last Admin: 10/22/18 05:58 Dose: 20 mg Diltiazem HCl (Cardizem Cd) 240 mg PO DAILY [facility] Last Admin: 10/22/18 08:39 Dose: 240 mg Enoxaparin Sodium (Lovenox) 40 mg SC DAILY [facility] Last Admin: 10/22/18 08:39 Dose: 40 mg Guaifenesin (Mucinex) 1,200 mg PO BID [facility] Last Admin: 10/22/18 08:39 Dose: 1,200 mg Sodium Chloride () 250 mls @ 15 mls/hr IV .[id number] PRN PRN Reason: SALINE FLUSH Last Admin: 10/19/18 21:50 Dose: 15 mls/hr Imatinib Mesylate (Gleevec) 400 mg PO DAILY@1300 [facility] Last Admin: 10/21/18 12:45 Dose: 400 mg Loratadine (Claritin) 10 mg PO DAILY [facility] Last Admin: 10/22/18 08:39 Dose: 10 mg Magnesium Hydroxide (Milk Of Magnesia) 30 ml PO DAILY PRN PRN PRN Reason: Constipation Methylprednisolone (Solu-Medrol) 60 mg IV Q6 [facility] Last Admin: 10/22/18 11:06 Dose: 60 mg Oxycodone HCl (Oxyir) 5 mg PO TID PRN PRN PRN Reason: PAIN Last Admin: 10/22/18 03:49 Dose: 5 mg Pantoprazole Sodium (Protonix) 40 mg PO DAILY [facility] Last Admin: 10/22/18 08:37 Dose: 40 mg Potassium Chloride (K-Dur) 20 meq PO BIDCM [facility] Last Admin: 10/22/18 08:39 Dose: 20 meq Prochlorperazine Maleate (Compazine Tablet) 5 mg PO TID [facility] Last Admin: 10/22/18 05:58 Dose: 5 mg Promethazine HCl (Phenergan) 6.25 mg IV Q6H PRN PRN PRN Reason: NAUSEA/VOMITING Sertraline HCl (Zoloft) 75 mg PO DAILY [facility] Last Admin: 10/22/18 08:37 Dose: 75 mg Sodium Chloride () 5 - 15 ml IV UD PRN PRN Reason: SALINE FLUSH Last Admin: 10/22/18 05:59 Dose: 10 ml Medical Necessity - Tobacco Use Smoking Status: Former smoker Tobacco Use: Cigarettes Assessment/Plan All Active Problems (Last Updated 10/19/18 @ 09:51 by Marleni Rea MD) Chronic hypoxemic respiratory failure (Acute) This is a 57 years old female patient presented to the ED because of worsening shortness of breath, COPD with 40 pack years of smoking was admitted for acute COPD exacerbation. #1 acute COPD exacerbation: She is on IV steroids, bronchodilators and IV Zithromax. She remains on 4 L of oxygen which is her baseline at home but she is very wheezy, dyspneic and tachypneic. Chest x-ray showed no acute findings, pneumonia ruled out. Nasal swab for influenza a and B were negative. Respiratory panel for viruses were negative. Blood cultures are negative. Continue bronchodilator, Solu-Medrol, Mucinex and chest physiotherapy. She completed azithromycin. Vest therapy ordered. Pulmonary consult requested. She follows Dr. Ridley. 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 FEV1 44% of predicted. No significant bronchodilator response. FRC and RV are elevated consistent with air trapping #2 chronic hypoxic respiratory failure: Secondary to above, patient has been on oxygen at home at 4 L. At this time, she is on 4 L. She reported minimal improvement. Plan to continue same treatment. #3 chronic myeloid leukemia: Stable, continue Gleevec. #4 history of ulcerative colitis: Stable, no active symptoms. She is not on any maintenance treatment. #5 chronic sinus tachycardia: Heart rate has been around 100, stable, continue Cardizem. #6 anxiety/depression: Continue Zoloft, BuSpar and Xanax. #7 DVT prophylaxis: Subcu Lovenox. This note was generated with [employer] dictation software. Every effort was made to ensure accuracy, however computerized printing worker supervisor mistakes may persist. Code Visit Inpatient E&M: 04615 Subs Hosp L3
[2018-10-22] MEDS: ALPRAZolam 0.5 MG Tablet PO ×2 (11:58→19:28)
--- NOTE | 2018-10-22 12:02 | PN_ITS ---
Subjective: Patient does not for the improvement in shortness of breath or wheezing. Chest tightness and chest congestion. No fever. Vitals/I&O's: Vital Signs Temp Pulse Resp BP Pulse Ox 98.6 F 105 H 16 143/84 H 95 10/22/18 11:03 10/22/18 11:03 10/22/18 11:03 10/22/18 11:03 10/22/18 11:03 Oxygen Flow Rate (L/min) 4 Oxygen Delivery Method Nasal Cannula Weight: 180 lb 1.883 oz Body Mass Index (BMI) 34.0 Intake and Output for Last 24 Hours 10/20/18 10/21/18 10/22/18 23:59 23:59 23:59 Intake Total 609 / 609 2049 / 2049 600 / 600 Balance 609 / 609 2049 600 / 600 General: Alert, Oriented x3, Cooperative HEENT: Atraumatic, PERRLA, EOMI, Normocephalic Neck: Supple, No JVD, Negative Carotid Bruits Lungs: Diminished - Air entry diffusely diminished, Rhonchi - Expiratory rhonchi and wheezing present, Short of Breath Cardiovascular: Regular rate, Normal S1, Normal S2, No murmurs Abdomen: Bowel Sounds Present, Soft, Non Tender, Non-Distended Extremities: No edema, Capillary Refill Less than 3 Seconds Skin: No rashes, No breakdown Musculoskeletal: No Tenderness to Palpation of Joints or Extremities, Arthritic Changes Neurological: Cranial nerves II-XII grossly intact Psych/Mental Status: Normal Affect, Appropriate Microbiology Past 72 Hours 10/18/18 21:48 Blood Culture (Wb) #2 - Anticubital Left Blood Culture - Preliminary No growth in 48 hours. 10/18/18 22:00 Blood Culture (Wb) - Left Hand Blood Culture - Preliminary No growth in 48 hours. 10/19/18 11:15 Mucosa - Nasopharyngeal Respiratory Panel (PCR) - Final Laboratory Results 10/22/18 05:30: WBC 10.0, RBC 3.21 L, Hgb 10.1 L, Hct 32.2 L, MCV 100.3 H, MCH 31.5, MCHC 31.4 L, RDW 14.3, RDW Differential 50.8 H, Plt Count 229, MPV 9.3, Immature Gran % (Auto) 0.900, Neut % (Auto) 92.0 H, Lymph % (Auto) 3.2 L, [place] % (Auto) 3.9, Eos % (Auto) 0.0, Baso % (Auto) 0.0, Absolute Neuts (auto) 9.2 H, Absolute Lymphs (auto) 0.32 L, Total Counted Not Reportable 10/22/18 05:30: Sodium 143, Potassium 3.9, Chloride 107, Carbon Dioxide 27.0, An ion Gap 9, BUN 25 H, Creatinine 0.95, Estim Creat Clear Calc 50.49, Est GFR (MDRD) Af Amer 78, Est GFR (MDRD) Non-Af 64, BUN/Creatinine Ratio 26.2 H, Glucose 179 H, Calcium 8.3 L 10/22/18 05:30: B-Natriuretic Peptide 58.8 Current Medications Acetaminophen (Tylenol) 650 mg PO Q6H PRN PRN PRN Reason: Mild Pain (scale 0-3)/T>100.7 Albuterol Sulfate (Ventolin Aerosols) 2.5 mg INHALATION Q2H PRN PRN PRN Reason: SHORTNESS OF BREATH Albuterol/Ipratropium (Duoneb) 3 ml INHALATION Q4H.RT [facility] Last Admin: 10/22/18 11:18 Dose: 3 ml Alprazolam (Xanax) 0.5 mg PO Q6H PRN PRN PRN Reason: ANXIETY Last Admin: 10/20/18 20:55 Dose: 0.5 mg Bisacodyl (Dulcolax) 5 mg PO DAILY PRN PRN PRN Reason: Constipation Buspirone HCl (Buspar) 20 mg PO TID [facility] Last Admin: 10/22/18 05:58 Dose: 20 mg Diltiazem HCl (Cardizem Cd) 240 mg PO DAILY [facility] Last Admin: 10/22/18 08:39 Dose: 240 mg Enoxaparin Sodium (Lovenox) 40 mg SC DAILY [facility] Last Admin: 10/22/18 08:39 Dose: 40 mg Guaifenesin (Mucinex) 1,200 mg PO BID [facility] Last Admin: 10/22/18 08:39 Dose: 1,200 mg Sodium Chloride () 250 mls @ 15 mls/hr IV .[id number] PRN PRN Reason: SALINE FLUSH Last Admin: 10/19/18 21:50 Dose: 15 mls/hr Imatinib Mesylate (Gleevec) 400 mg PO DAILY@1300 [facility] Last Admin: 10/21/18 12:45 Dose: 400 mg Loratadine (Claritin) 10 mg PO DAILY [facility] Last Admin: 10/22/18 08:39 Dose: 10 mg Magnesium Hydroxide (Milk Of Magnesia) 30 ml PO DAILY PRN PRN PRN Reason: Constipation Methylprednisolone (Solu-Medrol) 60 mg IV Q6 [facility] Last Admin: 10/22/18 11:06 Dose: 60 mg Oxycodone HCl (Oxyir) 5 mg PO TID PRN PRN PRN Reason: PAIN Last Admin: 10/22/18 03:49 Dose: 5 mg Pantoprazole Sodium (Protonix) 40 mg PO DAILY [facility] Last Admin: 10/22/18 08:37 Dose: 40 mg Potassium Chloride (K-Dur) 20 meq PO BIDCM [facility] Last Admin: 10/22/18 08:39 Dose: 20 meq Prochlorperazine Maleate (Compazine Tablet) 5 mg PO TID [facility] Last Admin: 10/22/18 05:58 Dose: 5 mg Promethazine HCl (Phenergan) 6.25 mg IV Q6H PRN PRN PRN Reason: NAUSEA/VOMITING Sertraline HCl (Zoloft) 75 mg PO DAILY [facility] Last Admin: 10/22/18 08:37 Dose: 75 mg Sodium Chloride () 5 - 15 ml IV UD PRN PRN Reason: SALINE FLUSH Last Admin: 10/22/18 05:59 Dose: 10 ml Medical Necessity - Tobacco Use Smoking Status: Former smoker Tobacco Use: Cigarettes Assessment/Plan All Active Problems (Last Updated 10/19/18 @ 09:51 by Marleni Rea MD) Chronic hypoxemic respiratory failure (Acute) This is a 57 years old female patient presented to the ED because of worsening shortness of breath, COPD with 40 pack years of smoking was admitted for acute COPD exacerbation. #1 acute COPD exacerbation: She is on IV steroids, bronchodilators and IV Zithromax. She remains on 4 L of oxygen which is her baseline at home but she is very wheezy, dyspneic and tachypneic. Chest x-ray showed no acute findings, pneumonia ruled out. Nasal swab for influenza a and B were negative. Respiratory panel for viruses were negative. Blood cultures are negative. Continue bronchodilator, Solu-Medrol, Mucinex and chest physiotherapy. She completed azithromycin. Vest therapy ordered. Pulmonary consult requested. She follows Dr. Ridley. 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 FEV1 44% of predicted. No significant bronchodilator response. FRC and RV are elevated consistent with air trapping #2 chronic hypoxic respiratory failure: Secondary to above, patient has been on oxygen at home at 4 L. At this time, she is on 4 L. She reported minimal improvement. Plan to continue same treatment. #3 chronic myeloid leukemia: Stable, continue Gleevec. #4 history of ulcerative colitis: Stable, no active symptoms. She is not on any maintenance treatment. #5 chronic sinus tachycardia: Heart rate has been around 100, stable, continue Cardizem. #6 anxiety/depression: Continue Zoloft, BuSpar and Xanax. #7 DVT prophylaxis: Subcu Lovenox. This note was generated with [employer] dictation software. Every effort was made to ensure accuracy, however computerized combustion analyst mistakes may persist. Code Visit Inpatient E&M: 22208 Subs Hosp L3
--- NOTE | 2018-10-22 12:58 | PCM.CONS.GEN ---
Reason for Consult Date of Consultation: 10/22/18 Reason for Consultation: COPD exacerbation History of Present Illness: The patient is a 57-year-old female, with a history as outlined below, who presented to the emergency department on October 18 with complaints of progressive shortness of breath. The patient has a known history of severe COPD with an FEV1 of less than 1 L along with chronic hypoxemic respiratory failure with a baseline supplemental oxygen requirement of 3 L/min at rest and 4 L/min with exertion. The patient currently follows with Dr. Ridley in the pulmonary medicine clinic and was last seen by him at the beginning of September 2018. The patient also has known stage I diastolic dysfunction based upon echocardiogram from August 2017. Additionally, the patient has a history of chronic myeloid leukemia, for which the patient is currently being treated with imatinib. The patient is already on a triple therapy inhaler regimen and is active with palliative care. She is also prescribed 10 mg of prednisone daily. She does have a great deal of baseline anxiety as well. She states that at her baseline she utilizes her rescue inhaler on average 2-3 times per day. On presentation to the emergency department, the patient was noted to be afebrile and hemodynamically stable. She was maintaining appropriate oxygen saturations on 2 L/min. Laboratory evaluation revealed no evidence of a leukocytosis. Chemistry profile was largely unremarkable. Plain film chest x-ray showed no acute cardiopulmonary process. The patient was subsequently placed on antibiotics, IV steroids and scheduled bronchodilators. However, the patient has not reportedly improved symptomatically, despite the aforementioned therapy. Past Medical History Past Medical History (Chronic Problems): Chronic Problems (Last Updated 10/19/18 @ 09:51 by Marleni Rea MD) HTN (hypertension) (Chronic) Fibromyalgia (Chronic) Nicotine abuse (Chronic) Seasonal allergies (Chronic) RUQ pain (Chronic) Stage 3 severe COPD by GOLD classification (Chronic) Ulcerative colitis (Chronic) Carpal tunnel syndrome (Chronic) Obesity (BMI 30.0-34.9) (Chronic) Poor compliance with medication (Chronic) CML (chronic myelocytic leukemia) (Chronic) DREW (generalized anxiety disorder) (Chronic) Emphysema of lung (Chronic) Depression (Chronic) History of cardiac cath (Chronic) 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 History of hysterectomy (Chronic) History of hemorrhoidectomy (Chronic) cataract surgery (Chronic) Medical History: Medical History (Last Updated 10/19/18 @ 09:51 by Marleni Rea MD) HTN (hypertension) (Chronic) I10 Fibromyalgia (Chronic) M79.7 Nicotine abuse (Chronic) Z72.0 Seasonal allergies (Chronic) J30.2 RUQ pain (Chronic) R10.11 Stage 3 severe COPD by GOLD classification (Chronic) J44.9 Chronic hypoxemic respiratory failure (Acute) J96.11 DREW (generalized anxiety disorder) (Chronic) F41.1 Emphysema of lung (Chronic) J43.9 Depression (Chronic) F32.9 History of hysterectomy (Chronic) Z98.890, Z90.710 cataract surgery (Chronic) Allergies Penicillins Allergy (Severe, Verified 09/12/18 12:39) Hives azithromycin Adverse Reaction (Severe, Verified 09/12/18 12:39) Diarrhea codeine Adverse Reaction (Severe, Verified 09/12/18 12:39) Vomiting ondansetron HCl [From Zofran (as hydrochloride)] Adverse Reaction (Severe, Verified 09/12/18 12:39) Nausea pregabalin [From Lyrica] Adverse Reaction (Severe, Verified 09/12/18 12:39) i can't see propoxyphene napsylate [From Darvocet-N 100] Adverse Reaction (Severe, Verified 09/12/18 12:39) Vomiting Sulfa (Sulfonamide Antibiotics) Adverse Reaction (Intermediate, Verified 09/12/18 12:39) Hives Home Medications: Ambulatory Orders Medication Instructions Recorded ALPRAZolam [Xanax] 0.5 mg PO Q6H PRN PRN 10/18/18 Albuterol Aerosols [Ventolin 2.5 mg INHALATION Q4H PRN PRN 10/18/18 Aerosols] Albuterol Inhaler [Ventolin Hfa 2 puff INHALATION Q4H PRN PRN 10/18/18 (SP)] Budesonide/Formoterol Fumarate 2 puff IH BID 10/18/18 [Symbicort 160-4.5 Mcg Inhaler] Buspirone HCl 20 mg PO TID 10/18/18 Diltiazem CD [Cardizem CD] 240 mg PO DAILY 10/18/18 Fexofenadine HCl [Wal-Fex Allergy] 180 mg PO DAILY 10/18/18 Fluticasone Propionate [Flovent 1 puff IH BID 10/18/18 Diskus] Ipratropium/Albuterol Sulfate 3 ml INHALATION Q4H PRN PRN 10/18/18 [Duoneb] Omeprazole 40 mg PO DAILY 10/18/18 Oxycodone [Oxyir] 5 mg PO TID PRN PRN 10/18/18 Potassium Chloride [Klor-Con] 20 meq PO BID 10/18/18 Prednisone 10 mg PO DAILY 10/18/18 Prochlorperazine Maleate 5 mg PO TID 10/18/18 [Compazine] Sertraline HCl [Zoloft] 75 mg PO DAILY 10/18/18 Tiotropium [place] [Spiriva] 2 puff IH DAILY 10/18/18 Imatinib Mesylate 400 mg PO DAILY 10/19/18 Surgical History: Surgical History (Last Reviewed 10/19/18 @ 07:39 by Aashish Martinez MD) History of cardiac cath (Chronic) Z98.890 History of cranial surgery (Chronic) Z98.890 due to closed fontanell History of hemorrhoidectomy (Chronic) Z98.890 Surgical History: hysterectomy, - - Hemorrhoidectomy, 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 Psychiatric History: Anxiety [employer] History: No pertinent [employer] history Lives: Alone Smoking Status: Former smoker Tobacco Use: Cigarettes - *Family History Maternal Family History: Family History (Last Reviewed 10/19/18 @ 01:51 by Aashish Martinez MD) Mother Ovarian cancer Brother Heart disease Grandmother Heart disease Grandfather Heart disease History Items: - - mother with ovarian cancer; denies family history of any blood disorders or blood cancers Paternal Family History: Family History (Last Reviewed 10/19/18 @ 01:51 by Aashish Martinez MD) Mother Ovarian cancer Brother Heart disease Grandmother Heart disease Grandfather Heart disease History Items: Diabetes, - - father was exposed from agent orange Review of Systems Constitutional: Reports: Weakness. Denies: Chills, Fever Eyes: Denies: Blurred vision, Double vision HEENT: Denies: Head Aches, Sinus Congestion, Sinus Drainage Cardiovascular: Denies: Chest Pain, Palpitations Respiratory: Reports: Cough, Shortness of Breath, Wheezing. Denies: Sputum production Gastrointestinal: Denies: Abdominal Pain, Nausea, Vomiting Genitourinary: Denies: Dysuria Musculoskeletal: Denies: Joint Pain, Joint Tenderness Skin: Denies: Rash, Wounds Neurological: Denies: Numbness, Tingling, Focal weakness Psychiatric: Reports: Anxiety, Depression Hematologic/ Lymphatic: Denies: Easy Bruising, Easy Bleeding Objective: The patient's most recent lab work, culture data and imaging studies have all been personally reviewed. Respiratory viral panel was negative. Blood cultures have shown no growth to date. - Physical Exam General: Alert, Oriented x3, Cooperative, No apparent distress, - - Sitting in bedside recliner. HEENT: Atraumatic, PERRLA, Normocephalic Oral: No Gingival or Mucosal Lesions/ Ulcerations Neck: Supple, No Nodes, Trachea Midline Lungs: - - Wheezing is noted only with forced expiration. When the patient is resting calmly with normal tidal volume breathing, her lung rodríguez are diminished. Cardiovascular: Regular rate, Regular Rhythm, Normal S1, Normal S2, No murmurs Abdomen: Bowel Sounds Present, Soft, Non Tender, Obese Extremities: No clubbing, No cyanosis, No edema Skin: - - Ecchymoses present over dorsum of hand Musculoskeletal: No Tenderness to Palpation of Joints or Extremities, No Muscle Wasting Neurological: Cranial nerves II-XII grossly intact, Neuro grossly intact Psych/Mental Status: Anxious Vital Signs Temp Pulse Resp BP Pulse Ox 37.0 C 105 H 16 143/84 H 95 10/22/18 11:03 10/22/18 11:03 10/22/18 11:03 10/22/18 11:03 10/22/18 11:03 Oxygen Flow Rate (L/min) 4 Oxygen Delivery Method Nasal Cannula Weight: 180 lb 1.883 oz Body Mass Index (BMI) 34.0 Intake and Output for Last 24 Hours 10/20/18 10/21/18 10/22/18 23:59 23:59 23:59 Intake Total 609 / 609 2049 600 / 600 Balance 609 / 609 2049 600 / 600 Microbiology Past 72 Hours 10/18/18 21:48 Blood Culture - Preliminary Blood Culture (Wb) #2 - Anticubital Left No growth in 48 hours. 10/18/18 22:00 Blood Culture - Preliminary Blood Culture (Wb) - Left Hand No growth in 48 hours. 10/19/18 11:15 Respiratory Panel (PCR) - Final Mucosa - Nasopharyngeal Laboratory Tests Past 24 Hrs 10/22/18 10/22/18 10/22/18 05:30 05:30 05:30 WBC 10.0 RBC 3.21 L Hgb 10.1 L Hct 32.2 L MCV 100.3 H MCH 31.5 MCHC 31.4 L RDW 14.3 RDW Differential 50.8 H Plt Count 229 MPV 9.3 Immature Gran % (Auto) 0.900 Neut % (Auto) 92.0 H Lymph % (Auto) 3.2 L [place] % (Auto) 3.9 Eos % (Auto) 0.0 Baso % (Auto) 0.0 Absolute Neuts (auto) 9.2 H Absolute Lymphs (auto) 0.32 L Total Counted Not Reportable Sodium 143 Potassium 3.9 Chloride 107 Carbon Dioxide 27.0 Anion Gap 9 BUN 25 H Creatinine 0.95 Estim Creat Clear Calc 50.49 Est GFR (MDRD) Af Amer 78 Est GFR (MDRD) Non-Af 64 BUN/Creatinine Ratio 26.2 H Glucose 179 H Calcium 8.3 L B-Natriuretic Peptide 58.8 Clinical Impression(s) from Imaging Studies Chest X-Ray 10/18/18 21:45 IMPRESSION: Borderline cardiac size, likely basilar scarring, areas of hyperinflation are stable findings. Recurrent opacification left costophrenic angle, possible pleural thickening/effusion. No pulmonary edema, congestive heart failure or confluent pneumonia. Electronically Signed: Kim Copeland MD at 0:31 EST , Service support , Assessment/Plan All Active Problems (Last Updated 10/19/18 @ 09:51 by Marleni Rea MD) Chronic hypoxemic respiratory failure (Acute) RECOMMENDATIONS: 1. Continue scheduled bronchodilators and steroids. 2. The patient is maintaining appropriate oxygen saturations on her baseline requirement. Recommend performing walking oximetry study now. 3. Continue Xanax per home regimen, along with scheduled BuSpar. 4. IV steroids can be transitioned to prednisone 40 mg daily by mouth. IMPRESSIONS: 1. Baseline severe COPD with exacerbation/chronic hypoxemic respiratory failure The patient was admitted to the hospital with a presumptive COPD exacerbation. To date, no infectious etiology has ever been identified. Per report, the patient has not responded to bronchodilators and steroids. However, upon my examination of the patient, she only had wheezing noted with forced expiration. This is a common finding, documented in my previous consultation note, as well as Dr. Ridley's last pulmonary office visit. While the patient does have advanced age COPD, she does have a great deal of baseline anxiety, which could also be contributing to her perception of dyspnea. Nevertheless, she is currently maintaining appropriate oxygen saturations on what she routinely requires on an outpatient basis. She has not been able to produce any sputum, nor does she have a fever or white count. Therefore, I would favor discontinuation of antibiotics. Additionally, the patient can be transitioned from IV steroids to prednisone 40 mg daily by mouth. I would advocate performing a walking oximetry study now to assess the patient's exertional oxygen requirement. At discharge, the patient's steroids can be tapered back to her chronic daily requirement of 10 mg daily. She is already active with palliative care. 2. Personal history of chronic myelocytic leukemia Continue imatinib as ordered and follow-up with oncology as scheduled. 3. Anxiety/depression/hypertension/fibromyalgia/ulcerative colitis/tobacco abuse, in remission Complicates care, management, recovery and prognosis. Okay to continue home medications from my perspective. UPDATE: I was contacted by the patient's nurse indicating that she was able to ambulate in the hallway and maintain oxygen saturations of 92% on her baseline 4 L/min requirement with exertion. The patient indicated to the nurse that it was not so much the shortness of breath that she was concerned about, as much as it was the tachycardia that she experiences with exertion. This note was generated with [employer] dictation software. It may contain incorrect words, spelling, and punctuation that were not noted in checking the note before signing. Code Visit Inpatient E&M: 77373 Init Hosp L2
[2018-10-23] VITALS (8 sets, daily range): BP systolic 130–140; BP diastolic 82–109; PULSE 94–106; RESP 16–18; TEMP 36.6–37.2; O2SAT 84–98
[2018-10-23] MEDS: oxyCODONE 5 MG Tablet PO (00:23)
[2018-10-23] MEDS: proCHLORPERazine 5 MG Tablet PO ×2 (05:54→13:29)
[2018-10-23] MEDS: busPIRone 5 MG Tablet 20 MG PO (05:54)
[2018-10-23] MEDS: Ipratropium/Albuterol Sulfate 3 ML AMPUL.NEB INHALATION ×3 (06:54→14:46)
--- NOTE | 2018-10-23 07:06 | PCM.PROGNOTE ---
Subjective: The patient was seen and examined at the bedside this morning. Events from the last 24 hours have been reviewed. The patient is currently afebrile, hemodynamically stable and maintaining appropriate oxygen saturations on her baseline supplemental oxygen requirement. As noted previously, the patient was able to ambulate in the hallway yesterday and maintain an oxygen saturation of 92% on her baseline 4 L/min with exertion. Objective: The patient's most recent lab work, culture data and imaging studies have all been personally reviewed. Infectious workup has been negative to date. - Physical Exam General: Alert, Cooperative, No apparent distress HEENT: Atraumatic, PERRLA, Normocephalic Oral: No Gingival or Mucosal Lesions/ Ulcerations Neck: Supple, No Nodes, Trachea Midline Lungs: Diminished, - - Wheezes present only on forced expiration Cardiovascular: Regular rate, Regular Rhythm, Normal S1, Normal S2, No murmurs Abdomen: Bowel Sounds Present, Soft, Non Tender, Obese Extremities: No clubbing, No cyanosis, No edema Skin: - - No significant change from previous. Musculoskeletal: No Tenderness to Palpation of Joints or Extremities Lymphatic: No Cervical, Supraclavicular, or Inguinal Adenopathy Neurological: Neuro grossly intact Psych/Mental Status: Anxious Vital Signs Temp Pulse Resp BP Pulse Ox 37.2 C 94 16 130/83 H 98 10/23/18 03:00 10/23/18 06:54 10/23/18 06:54 10/23/18 03:00 10/23/18 06:54 Oxygen Flow Rate (L/min) [ 4 AMBULATION with Oxygen] Oxygen Flow Rate (L/min) 4 Oxygen Delivery Method Nasal Cannula Weight: 180 lb 1.883 oz Body Mass Index (BMI) 34.0 Intake and Output for Last 24 Hours 10/21/18 10/22/18 10/23/18 23:59 23:59 23:59 Intake Total 2049 1200 / 1200 640 / 640 Balance 2049 1200 / 1200 640 / 640 Microbiology Past 72 Hours 10/18/18 21:48 Blood Culture - Preliminary Blood Culture (Wb) #2 - Anticubital Left No growth in 48 hours. 10/18/18 22:00 Blood Culture - Preliminary Blood Culture (Wb) - Left Hand No growth in 48 hours. Laboratory Tests Past 24 Hrs 10/22/18 10/22/18 05:30 05:30 Total Counted Not Reportable B-Natriuretic Peptide 58.8 Labs (Last 48 Hours) 10/22/18 10/22/18 10/22/18 05:30 05:30 05:30 WBC 10.0 RBC 3.21 L Hgb 10.1 L Hct 32.2 L MCV 100.3 H MCH 31.5 MCHC 31.4 L RDW 14.3 RDW Differential 50.8 H Plt Count 229 MPV 9.3 Immature Gran % (Auto) 0.900 Neut % (Auto) 92.0 H Lymph % (Auto) 3.2 L [place] % (Auto) 3.9 Eos % (Auto) 0.0 Baso % (Auto) 0.0 Absolute Neuts (auto) 9.2 H Absolute Lymphs (auto) 0.32 L Total Counted Not Reportable Sodium 143 Potassium 3.9 Chloride 107 Carbon Dioxide 27.0 Anion Gap 9 BUN 25 H Creatinine 0.95 Estim Creat Clear Calc 50.49 Est GFR (MDRD) Af Amer 78 Est GFR (MDRD) Non-Af 64 BUN/Creatinine Ratio 26.2 H Glucose 179 H Calcium 8.3 L B-Natriuretic Peptide 58.8 Microbiology 10/18/18 21:48 Blood Culture (Wb) #2 - Anticubital Left Blood Culture - Preliminary No growth in 48 hours. 10/18/18 22:00 Blood Culture (Wb) - Left Hand Blood Culture - Preliminary No growth in 48 hours. Clinical Impression(s) from Imaging Studies Chest X-Ray 10/18/18 21:45 IMPRESSION: Borderline cardiac size, likely basilar scarring, areas of hyperinflation are stable findings. Recurrent opacification left costophrenic angle, possible pleural thickening/effusion. No pulmonary edema, congestive heart failure or confluent pneumonia. Electronically Signed: Kim Copeland MD at 0:31 EST , Service support , Chest X-Ray 10/22/18 07:28 IMPRESSION: Stable pleural parenchymal changes at the left lung base worse on the left side. Electronically Signed: Presley Charles MD at 15:59 EST Tel [phone], Service support , Medical Necessity - Tobacco Use Smoking Status: Former smoker Tobacco Use: Cigarettes Assessment/Plan All Active Problems (Last Updated 10/19/18 @ 09:51 by Marleni Rea MD) Chronic hypoxemic respiratory failure (Acute) RECOMMENDATIONS: 1. Continue scheduled bronchodilators and steroids. 2. Continue Xanax per home regimen, along with scheduled BuSpar. 3. Continue prednisone 40 mg daily by mouth. Plan for taper at discharge until the patient reaches her baseline daily 10 mg dose. 4. The patient should follow-up in the pulmonary medicine clinic within 2 weeks of her discharge from the hospital. IMPRESSIONS: 1. Baseline severe COPD with exacerbation/chronic hypoxemic respiratory failure The patient was admitted to the hospital with a presumptive COPD exacerbation. To date, no infectious etiology has ever been identified. Per report, the patient has not responded to bronchodilators and steroids. However, upon my examination of the patient, she only had wheezing noted with forced expiration. This is a common finding, documented in my previous consultation note, as well as Dr. Ridley's last pulmonary office visit. While the patient does have advanced stage COPD, she does have a great deal of baseline anxiety, which could also be contributing to her perception of dyspnea. In addition, the patient is on a tyrosine kinase inhibitor, which can at times lead to the development of pulmonary edema or pleural effusions. However, the patient's plain film chest x-ray reveals chronic findings with only mild blunting of the left costrophrenic angle. The patient is currently maintaining appropriate oxygen saturations on what she routinely requires on an outpatient basis. She has not been able to produce any sputum, nor does she have a fever or white count. Therefore, I would favor discontinuation of antibiotics. At discharge, the patient's steroids can be tapered back to her chronic daily requirement of 10 mg daily. She is already active with palliative care. The patient was able to ambulate in the hallway yesterday while maintaining oxygen saturations on her baseline 4 L/min requirement. The patient can follow-up in the pulmonary medicine clinic within 2 weeks of her discharge from the hospital. 2. Personal history of chronic myelocytic leukemia Continue imatinib as ordered and follow-up with oncology as scheduled. 3. Anxiety/depression/hypertension/fibromyalgia/ulcerative colitis/tobacco abuse, in remission Complicates care, management, recovery and prognosis. Okay to continue home medications from my perspective. This note was generated with [employer] Webation software. It may contain incorrect words, spelling, and punctuation that were not noted in checking the note before signing. Code Visit Inpatient E&M: 12621 Subs Hosp L2
[2018-10-23] MEDS: Sertraline 50 MG Tablet 75 MG PO (08:06)
[2018-10-23] MEDS: guaiFENesin 1,200 MG Tablet 1200 MG PO (08:08)
[2018-10-23] MEDS: dilTIAZem CD 240 MG Capsule PO (08:08)
[2018-10-23] MEDS: Loratadine 10 MG Tablet PO (08:08)
[2018-10-23] MEDS: Pantoprazole Sodium 40 MG Tablet PO (08:08)
[2018-10-23] MEDS: Enoxaparin 40 MG/0.4 ML Syringe SC (08:09)
[2018-10-23] MEDS: predniSONE 20 MG Tablet 40 MG PO (08:09)
--- NOTE | 2018-10-23 11:40 | PCM.DC ---
You will use the following diet at home:: Regular Your food should be the consistency of: Regular Discharge Activity: May Not Drive Call your doctor if you observe: Fever of 101 or Higher, Change in Color, Shortness of breath, Dizziness, Swelling in the ankles, Chest pain, Increased palpitations (irregular heartbeat), Uncontrolled pain Allergies/Adverse Reactions: Allergies Penicillins Allergy (Severe, Verified 09/12/18 12:39) Hives azithromycin Adverse Reaction (Severe, Verified 09/12/18 12:39) Diarrhea codeine Adverse Reaction (Severe, Verified 09/12/18 12:39) Vomiting ondansetron HCl [From Zofran (as hydrochloride)] Adverse Reaction (Severe, Verified 09/12/18 12:39) Nausea pregabalin [From Lyrica] Adverse Reaction (Severe, Verified 09/12/18 12:39) i can't see propoxyphene napsylate [From Darvocet-N 100] Adverse Reaction (Severe, Verified 09/12/18 12:39) Vomiting Sulfa (Sulfonamide Antibiotics) Adverse Reaction (Intermediate, Verified 09/12/18 12:39) Hives Medications to take at Discharge ALPRAZolam [Xanax] 0.5 mg PO Q6H PRN PRN 10/18/18 Albuterol Aerosols [Ventolin Aerosols] 2.5 mg INHALATION Q4H PRN PRN 10/18/18 Albuterol Inhaler [Ventolin Hfa] 2 puff INHALATION Q4H PRN PRN 10/18/18 Budesonide/Formoterol Fumarate [Symbicort 160-4.5 Mcg Inhaler] 2 puff IH BID 10/18/18 Buspirone HCl 20 mg PO TID 10/18/18 Diltiazem CD [Cardizem CD] 240 mg PO DAILY 10/18/18 Fluticasone Propionate [Flovent Diskus] 1 puff IH BID 10/18/18 Ipratropium/Albuterol Sulfate [Duoneb] 3 ml INHALATION Q4H PRN PRN 10/18/18 Omeprazole 40 mg PO DAILY 10/18/18 Oxycodone [Oxyir] 5 mg PO TID PRN PRN 10/18/18 Potassium Chloride [Klor-Con] 20 meq PO BID 10/18/18 Prochlorperazine Maleate [Compazine] 5 mg PO TID 10/18/18 Sertraline HCl [Zoloft] 75 mg PO DAILY 10/18/18 Tiotropium [place] [Spiriva] 2 puff IH DAILY 10/18/18 Imatinib Mesylate 400 mg PO DAILY 10/19/18 Fexofenadine HCl [Wal-Fex Allergy] 180 mg PO DAILY PRN PRN #0 10/23/18 Guaifenesin [Mucinex] 1,200 mg PO BID #14 tab 10/23/18 Prednisone 10 mg PO DAILY #30 tab 10/23/18 The following prescriptions were given: Prednisone 10 mg PO DAILY #30 tab Guaifenesin [Mucinex] 1,200 mg PO BID #14 tab Primary Care Physician: Jennifer Coelho NP-C [Primary Care Provider] - Please follow up with your Primary Care Physician in: in 2 weeks Test Results: Test results from this visit will be discussed in further detail at your follow-up appointment, if applicable. Please Follow Up With: Brenden Ridley MD When: in 2-4 weeks Please Follow Up With: Rayshawn Gotti MD When: in 2-4 weeks to check switching Gleevec
--- NOTE | 2018-10-23 11:55 | DCINST_ITS ---
You will use the following diet at home:: Regular Your food should be the consistency of: Regular Discharge Activity: May Not Drive Call your doctor if you observe: Fever of 101 or Higher, Change in Color, Shortness of breath, Dizziness, Swelling in the ankles, Chest pain, Increased palpitations (irregular heartbeat), Uncontrolled pain Allergies/Adverse Reactions: Allergies Penicillins Allergy (Severe, Verified 09/12/18 12:39) Hives azithromycin Adverse Reaction (Severe, Verified 09/12/18 12:39) Diarrhea codeine Adverse Reaction (Severe, Verified 09/12/18 12:39) Vomiting ondansetron HCl [From Zofran (as hydrochloride)] Adverse Reaction (Severe, Veri fied 09/12/18 12:39) Nausea pregabalin [From Lyrica] Adverse Reaction (Severe, Verified 09/12/18 12:39) i can't see propoxyphene napsylate [From Darvocet-N 100] Adverse Reaction (Severe, Verified 09/12/18 12:39) Vomiting Sulfa (Sulfonamide Antibiotics) Adverse Reaction (Intermediate, Verified 09/12/18 12:39) Hives Medications to take at Discharge ALPRAZolam [Xanax] 0.5 mg PO Q6H PRN PRN 10/18/18 Albuterol Aerosols [Ventolin Aerosols] 2.5 mg INHALATION Q4H PRN PRN 10/18/18 Albuterol Inhaler [Ventolin Hfa] 2 puff INHALATION Q4H PRN PRN 10/18/18 Budesonide/Formoterol Fumarate [Symbicort 160-4.5 Mcg Inhaler] 2 puff IH BID 10/18/18 Buspirone HCl 20 mg PO TID 10/18/18 Diltiazem CD [Cardizem CD] 240 mg PO DAILY 10/18/18 Fluticasone Propionate [Flovent Diskus] 1 puff IH BID 10/18/18 Ipratropium/Albuterol Sulfate [Duoneb] 3 ml INHALATION Q4H PRN PRN 10/18/18 Omeprazole 40 mg PO DAILY 10/18/18 Oxycodone [Oxyir] 5 mg PO TID PRN PRN 10/18/18 Potassium Chloride [Klor-Con] 20 meq PO BID 10/18/18 Prochlorperazine Maleate [Compazine] 5 mg PO TID 10/18/18 Sertraline HCl [Zoloft] 75 mg PO DAILY 10/18/18 Tiotropium [place] [Spiriva] 2 puff IH DAILY 10/18/18 Imatinib Mesylate 400 mg PO DAILY 10/19/18 Fexofenadine HCl [Wal-Fex Allergy] 180 mg PO DAILY PRN PRN #0 10/23/18 Guaifenesin [Mucinex] 1,200 mg PO BID #14 tab 10/23/18 Prednisone 10 mg PO DAILY #30 tab 10/23/18 The following prescriptions were given: Prednisone 10 mg PO DAILY #30 tab Guaifenesin [Mucinex] 1,200 mg PO BID #14 tab Primary Care Physician: Jennifer Coelho NP-C [Primary Care Provider] - Please follow up with your Primary Care Physician in: in 2 weeks Test Results: Test results from this visit will be discussed in further detail at your follow- up appointment, if applicable. Please Follow Up With: Brenden Ridley MD When: in 2-4 weeks Please Follow Up With: Rayshawn Gotti MD When: in 2-4 weeks to check switching Gleevec
[2018-10-23] MEDS: busPIRone 15 MG TABLET PO (13:29)
[2018-10-23] MEDS: busPIRone 5 MG Tablet PO (13:29)
[2018-10-23] MEDS: ALPRAZolam 0.5 MG Tablet PO (13:29)
--- NOTE | 2018-10-23 13:49 | DS.PCM_ITS ---
Discharge Date and Diagnosis Date of Admission: 10/18/18 Date of Discharge: 10/23/18 - Secondary Discharge Diagnosis Chronic Problems (Last Updated 10/19/18 @ 09:51 by Marleni Rea MD) HTN (hypertension) (Chronic) Fibromyalgia (Chronic) Nicotine abuse (Chronic) Seasonal allergies (Chronic) RUQ pain (Chronic) Stage 3 severe COPD by GOLD classification (Chronic) Ulcerative colitis (Chronic) Carpal tunnel syndrome (Chronic) Obesity (BMI 30.0-34.9) (Chronic) Poor compliance with medication (Chronic) CML (chronic myelocytic leukemia) (Chronic) DREW (generalized anxiety disorder) (Chronic) Emphysema of lung (Chronic) Depression (Chronic) History of cardiac cath (Chronic) 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 History of hysterectomy (Chronic) History of hemorrhoidectomy (Chronic) cataract surgery (Chronic) Hospital Course and Treatment Operations: None Summary of Care Provided: [] This is a 57 years old female patient presented to the ED because of worsening shortness of breath, COPD with 40 pack years of smoking was admitted for acute COPD exacerbation. #1 acute COPD exacerbation: She is on IV steroids, bronchodilators and IV Zithromax. She remains on 4 L of oxygen which is her baseline at home but she is very wheezy, dyspneic and tachypneic. Chest x-ray showed no acute findings, pneumonia ruled out. Nasal swab for influenza a and B were negative. Respiratory panel for viruses were negative. Blood cultures are negative. Continue bronchodilator, Solu-Medrol, Mucinex and chest physiotherapy. She completed azithromycin. Vest therapy ordered. Pulmonary consult requested and discussed with Dr. Gomes. She follows Dr. Ridley. 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 FEV1 44% of predicted. No significant bronchodilator response. FRC and RV are elevated consistent with air trapping And symptoms got better. #2 chronic hypoxic respiratory failure: Secondary to above, patient has been on oxygen at home at 4 L. At this time, she is on 4 L. She reported minimal improvement. Plan to continue same treatment. #3 chronic myeloid leukemia: Stable, continue Gleevec. Patient was advised to follow-up oncologist Dr. Johnson discussed with him as the patient has complaint of nasal congestion and sinusitis on Gleevec. #4 history of ulcerative colitis: Stable, no active symptoms. She is not on any maintenance treatment. #5 chronic sinus tachycardia: Heart rate has been around 100, stable, continue Cardizem. #6 anxiety/depression: Continue Zoloft, BuSpar and Xanax. #7 DVT prophylaxis: Subcu Lovenox. This note was generated with [employer] dictation software. Every effort was made to ensure accuracy, however computerized retail account executive mistakes may persist. Discharge medication reconciliation done. Discharge follow-up instructions completed. Discharge process discussed with the patient and all questions were answered to patient's satisfaction. Follow with PCP, Dr. Ridley and oncologist. Total time spent, exact 35 minutes on discharge meds reconciliation, examination, review of imaging and blood test and discussion with the patient on follow-up instructions. Subjective: Seen and examined. Patient has significant anxiety and panic attack and part of her perception of shortness of breath is secondary to anxiety. Objective: General: Alert, Oriented x3, Cooperative HEENT: Atraumatic, PERRLA, EOMI, Normocephalic Neck: Supple, No JVD, Negative Carotid Bruits Lungs: Air entry diffusely diminished bilaterally but has improved, Rhonchi - Expiratory rhonchi and wheezing present, shortness of breath improved. Cardiovascular: Regular rate, Normal S1, Normal S2, No murmurs Abdomen: Bowel Sounds Present, Soft, Non Tender, Non-Distended Extremities: No edema, Capillary Refill Less than 3 Seconds Skin: No rashes, No breakdown Musculoskeletal: No Tenderness to Palpation of Joints or Extremities, Arthritic Changes Neurological: Cranial nerves II-XII grossly intact Psych/Mental Status: Normal Affect, Appropriate - Physical Exam Vital Signs Temp Pulse Resp BP Pulse Ox 98.6 F 106 H 16 137/109 H 95 10/23/18 13:31 10/23/18 13:31 10/23/18 13:31 10/23/18 13:31 10/23/18 13:31 Oxygen Flow Rate (L/min) [ 4 AMBULATION with Oxygen] Oxygen Flow Rate (L/min) 4 Oxygen Delivery Method Nasal Cannula Weight: 180 lb 1.883 oz Body Mass Index (BMI) 34.0 Intake and Output for Last 24 Hours 10/21/18 10/22/18 10/23/18 23:59 23:59 23:59 Intake Total 2049 1200 / 1200 1040 / 1040 Balance 2049 1200 / 1200 1040 / 1040 Microbiology Past 72 Hours 10/18/18 21:48 Blood Culture - Preliminary Blood Culture (Wb) #2 - Anticubital Left No growth in 48 hours. 10/18/18 22:00 Blood Culture - Preliminary Blood Culture (Wb) - Left Hand No growth in 48 hours. Discharge Activity: May Not Drive Call your doctor if you observe: Fever of 101 or Higher, Change in Color, Shortness of breath, Dizziness, Swelling in the ankles, Chest pain, Increased palpitations (irregular heartbeat), Uncontrolled pain Home Medications: Medications to take at Discharge ALPRAZolam [Xanax] 0.5 mg PO Q6H PRN PRN 10/18/18 Albuterol Aerosols [Ventolin Aerosols] 2.5 mg INHALATION Q4H PRN PRN 10/18/18 Albuterol Inhaler [Ventolin Hfa] 2 puff INHALATION Q4H PRN PRN 10/18/18 Budesonide/Formoterol Fumarate [Symbicort 160-4.5 Mcg Inhaler] 2 puff IH BID 10/18/18 Buspirone HCl 20 mg PO TID 10/18/18 Diltiazem CD [Cardizem CD] 240 mg PO DAILY 10/18/18 Fluticasone Propionate [Flovent Diskus] 1 puff IH BID 10/18/18 Ipratropium/Albuterol Sulfate [Duoneb] 3 ml INHALATION Q4H PRN PRN 10/18/18 Omeprazole 40 mg PO DAILY 10/18/18 Oxycodone [Oxyir] 5 mg PO TID PRN PRN 10/18/18 Potassium Chloride [Klor-Con] 20 meq PO BID 10/18/18 Prochlorperazine Maleate [Compazine] 5 mg PO TID 10/18/18 Sertraline HCl [Zoloft] 75 mg PO DAILY 10/18/18 Tiotropium [place] [Spiriva] 2 puff IH DAILY 10/18/18 Imatinib Mesylate 400 mg PO DAILY 10/19/18 Fexofenadine HCl [Wal-Fex Allergy] 180 mg PO DAILY PRN PRN #0 10/23/18 Guaifenesin [Mucinex] 1,200 mg PO BID #14 tab 10/23/18 Prednisone 10 mg PO DAILY #30 tab 10/23/18 Following Prescrptions Were Given to Patient: Prednisone 10 mg PO DAILY #30 tab Guaifenesin [Mucinex] 1,200 mg PO BID #14 tab Primary Care Physician: Jennifer Coelho NP-C [Primary Care Provider] - Please follow up with your Primary Care Physician in: in 2 weeks Please Follow Up With: Brenden Ridley MD When: in 2-4 weeks Please Follow Up With: Rayshawn Gotti MD When: in 2-4 weeks to check switching Gleevec Medical Necessity - Tobacco Use Smoking Status: Former smoker Tobacco Use: Cigarettes Meaningful Use Info Meaningful Use Diagnoses (Choose all that apply): None applicable Code Visit Inpatient E&M: 70252 Disch Hosp
--- NOTE | 2018-10-24 15:47 | CASEMGMT ---
ESTEPHANIA JUNIOR Discharge Follow-up Phone Call: DANNY: Rebecca Strata: 4 Call Date: 10/24/18 Discharge Date: 10/23/18 Time of Call: 1545 Duration: 3 min Admitting Diagnosis: COPD exacerbation ESTEPHANIA JUNIOR completed follow-up phone call after recent hospitalization. Patient states that she is doing the same. Patient denied questions or concerns regarding discharge instructions. Patient was able to fill presriptions without any issues. Patient states that she was in the process of scheduling her follow-up appts.
== END 2018-10-23 15:55 | disposition home or self-care (01) | DRG 140 ==
LOC: ED 21:35 → MS3 10-19 00:08
PROVIDERS: Admitting Provider Hospitalist; Emergency Provider Emergency Medicine; Family Provider Nurse Practitioner Family; PCP Nurse Practitioner Family; Visit Provider Internal Medicine
DX: J44.1 Chronic obstructive pulmonary disease with (acute) exacerbation (principal); Z99.81 Dependence on supplemental oxygen; M79.7 Fibromyalgia; C92.10 Chronic myeloid leukemia, BCR/ABL-positive, not having achieved remission; J96.11 Chronic respiratory failure with hypoxia; R00.0 Tachycardia, unspecified; I10 Essential (primary) hypertension; F41.1 Generalized anxiety disorder; E66.9 Obesity, unspecified; Z68.34 Body mass index [BMI] 34.0-34.9, adult; F32.9 Major depressive disorder, single episode, unspecified; Z87.891 Personal history of nicotine dependence
CPT/HCPCS: 36415; 71045; 71046; 80048; 83880; 84484; 85025; 87040; 87633; 87804; 93005; 94640; 94667; 94668; 97116; 97161; 97165; 97530; 97802; 99251; 99284; J7050; A4216; G0463

== ENCOUNTER 2019-01-10 19:17 | Emergency (ER) | payer MEDICAID, SELFPAY ==
[2018-12-18 14:19] VITALS: BMI 34.2
[2019-01-10 19:18] VITALS: BP 118/84; PULSE 101; RESP 18; TEMP 36.8; O2SAT 95; BMI 33.7
[2019-01-10 19:26] VITALS: O2SAT 95
--- NOTE | 2019-01-10 19:32 | RAD_ITS ---
STUDY: X-RAY CHEST REASON FOR EXAM: Female, 58 years old. Cough, dyspnea and wheezing. TECHNIQUE: PA and lateral views of the chest. COMPARISON: October 22, 2018 FINDINGS: Cardiac monitoring leads are present. Lungs are expanded. There is curvilinear opacity at the right lung base. This is similar to the previous study and suggests pulmonary fibrosis. There is mild prominence of central pulmonary vasculature. There may be small left-sided pleural effusion. There is mild cardiac enlargement. Normal mediastinum and sven. There is prominence of the pulmonary hilar arteries with peripheral pulmonary vascular congestion. There is atherosclerotic calcification of the aortic arch with tortuosity. There is demineralization of the osseous structures. There are degenerative changes of both shoulders and spine. There is no demonstrated abnormality of the visualized soft tissue structures of the upper abdomen. RAD/Chest PA and Lateral IMPRESSION: Mild cardiomegaly and pulmonary congestion similar to previous study. Electronically Signed: Deann Gabriel MD at 20:47 EDT , Service support ,
--- NOTE | 2019-01-10 19:32 | EKG12_ITS ---
Test Reason : Blood Pressure : / mmHG Vent. Rate : 095 BPM Atrial Rate : 095 BPM P-R Int : 144 ms QRS Dur : 086 ms QT Int : 388 ms P-R-T Axes : 044 071 041 degrees QTc Int : 487 ms Normal sinus rhythm Low voltage QRS Prolonged QT Abnormal ECG Confirmed by IVETT MURO, EMILIA ([id number]), telegraph editor ANGE TOUSSAINT ([id number]) on 01/13/2019 10:55:17 AM Referred By: NICOLE Confirmed By:EMILIA ROOT MD
[2019-01-10 19:55] LABS: Absolute Lymphocyte Count 0.57 X10^3/ul (0.83-4.51); Absolute Neutrophil Count 7.6 X10^3/uL (2.0-7.7); Basophil# 0.01 X10^3/uL; Basophil% 0.1 % (0-1); Hemoglobin 10.7 g/dl (12.0-15.0); Lymphocyte # 0.57 X10^3/ul (4.0); Lymphocyte % 6.6 % (19-41); Mean Corp Hgb Conc 32.4 g/gl (32-36); Mean Corpuscular Hgb 32.3 pg (27.0-32.0); Mean Corpuscular Volume 99.7 fL (81-99); Mean Platelet Vol. 8.7 fl (6.2-12.0); Monocyte# 0.43 X10^3/uL; Neutrophil # 7.56 X10^3/uL (2.7-7.7); Neutrophil % 88.1 % (47-70); Platelet Count 157 K/mm3 (150-450); RBC Distribution Width CV 14.5 % (11.6-14.6); RBC Distribution Width SD 52.4 fl (35.1-43.9); Red Blood Count 3.31 M/mm3 (4.2-5.4); White Blood Count 8.6 K/mm3 (4.4-11.0)
[2019-01-10 19:56] LABS: Anion Gap 6 (5-15); BUN 7 mg/dL (7-18); BUN/Creat Ratio 7.9 RATIO (10-20); Calcium,Total 8.7 mg/dL (8.5-10.1); Chloride 108 mmol/L (98-107); Creatinine, Serum 0.89 mg/dL (0.55-1.02); EST Glomerular Filtration Rate 70 mL/min (>60); Est Glom Filt Rate - Afr Amer 84 mL/min (>60); Estimated Creatinine Clearance 55.82 ml/min; Glucose 170 mg/dL (74-106); Potassium 3.7 mmol/L (3.5-5.1); Sodium Level 143 mmol/L (136-145)
[2019-01-10 19:59] LABS: Differential Indicated SCAN CRITERIA MET; POSITIVE COUNT NO; POSITIVE DIFFERENTIAL YES; POSITIVE MORPHOLOGY NO
[2019-01-10 20:15] LABS: Platelet Estimate ADEQUATE (ADEQ); Red Cell Morphology NORM C+C NORMAL (NORM C&C)
[2019-01-10 20:16] VITALS: PULSE 100; RESP 18
[2019-01-10] MEDS: predniSONE 20 MG Tablet 60 MG PO (20:20)
--- NOTE | 2019-01-10 20:24 | ED.VIS.GEN ---
History of Present Illness Chief Complaint: Shortness of Breath Informant: Patient Onset: Days Context: Gradual Onset Timing: Continuous Quality: Increasing shortness of breath Location: Home Current Severity: Moderate Maximum Severity: Severe Worsened by: Cough Relieved by: nothing Associated Symptoms: Mild cough with minimal production Narrative: Patient is a middle-aged woman with COPD on oxygen. Patient denies fever, chills night sweats. She denies runny nose, congestion, sore throat or auditory symptoms. She denies chest pain. She does report difficulty breathing. Denies leg pain, swelling discoloration. She is on no anticoagulant. She has history of CML. - Past Medical History (1) Chronic hypoxemic respiratory failure Status: Chronic (2) CML (chronic myelocytic leukemia) Status: Chronic (3) Depression Status: Chronic (4) Fibromyalgia Status: Chronic (5) DREW (generalized anxiety disorder) Status: Chronic (6) HTN (hypertension) Status: Chronic (7) Nicotine abuse Status: Chronic Past Medical History - Allergies and Home Meds Allergies/Adverse Reactions: Allergies Penicillins Allergy (Severe, Verified 01/10/19 19:23) Hives azithromycin Adverse Reaction (Severe, Verified 01/10/19 19:23) Diarrhea codeine Adverse Reaction (Severe, Verified 01/10/19 19:23) Vomiting ondansetron HCl [From Zofran (as hydrochloride)] Adverse Reaction (Severe, Verified 01/10/19 19:23) Nausea pregabalin [From Lyrica] Adverse Reaction (Severe, Verified 01/10/19 19:23) i can't see propoxyphene napsylate [From Darvocet-N 100] Adverse Reaction (Severe, Verified 01/10/19 19:23) Vomiting Sulfa (Sulfonamide Antibiotics) Adverse Reaction (Intermediate, Verified 01/10/19 19:23) Hives Primary Care Physician: Jennifer Coelho NP-C [Primary Care Provider] - Prior records reviewed: Yes Surgical History: hysterectomy, - - Hemorrhoidectomy, 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 Lives: Alone Smoking Status: Former smoker Alcohol: None - Family History Maternal Family History: Family History (Last Reviewed 12/18/18 @ 14:40 by YARELIS Morales) Mother Ovarian cancer Brother Heart disease Grandmother Heart disease Grandfather Heart disease Family History: Reports: - - mother with ovarian cancer; denies family history of any blood disorders or blood cancers Paternal Family History: Family History (Last Reviewed 12/18/18 @ 14:40 by YARELIS Morales) Mother Ovarian cancer Brother Heart disease Grandmother Heart disease Grandfather Heart disease Family History: Reports: Diabetes, - - father was exposed from agent orange Review of Systems General: Denies: Chills, Fever, Malaise, Sweats, Weight loss ENT: Denies: Bilateral ear pain, Rhinorrhea, Sore throat Cardiovascular: Denies: Chest pain, Palpitations, Heart racing, -, - Respiratory: Reports: Dyspnea, Cough, Sputum, Dyspnea on exertion. Denies: Orthopnea, Paroxysmal nocturnal dyspnea Gastrointestinal: Denies: Abdominal pain, Nausea, Vomiting, Diarrhea, Constipation, Melena, Hematochezia, -, - Musculoskeletal: Denies: Myalgias, Arthralgias, Neck pain, Back pain, Swelling, Extremity Pain, -, - Neurological: Denies: Headache, Weakness, Numbness Hematologic: Denies: Easy bruising, Easy bleeding Allergy: Denies: Uticaria, Swelling of the mouth, Swelling of the tongue, -, - Physical Exam Vital Signs/Narrative: Vital Signs Temp Pulse Resp BP Pulse Ox 01/10/19 20:16 100 18 01/10/19 19:18 98.2 F 101 H 18 118/84 H 95 Inital Vital Signs reviewed: Yes General: Well nourished, Well developed, Obese, No Acute Distress Head: Normocephalic, Atraumatic Eyes: Perrl, EOMI. Negative for: Pale conjunctiva, Scleral icterus ENT: Moist mucous membranes, No rhinorrhea, TM's clear Neck: Supple, Nontender, No lymphadenopathy, No JVD Cardiovascular: Regular rate, Regular rhythm, No murmurs, Normal S1, Normal S2 Respiratory: Chest nontender, Wheezing, Diminished, Decreased Air Movement. Negative for: No distress Abdomen: Soft, Nontender, Nondistended, Normal bowel sounds Back: Nontender, Normal Inspection Extremities: Nontender, No edema Skin: Normal color, No rash. Negative for: Cyanosis, Rash Neurological: Alert, Oriented x3, Cranial nerves II-XII grossly intact, Normal Strength, Normal Sensation Psychological: Normal affect Diagnostic/Tx/Re-eval Chest X-Ray - ED: 2 View, Unchanged - Unchanged from October 22, 2018, Normal, Heart, Mediastinum, Bony Structures, No Acute Disease, Chronic Changes 01/10/19 19:32 Chest PA and Lateral [RAD] Stat Laboratory Results 01/10/19 01/10/19 19:38 19:38 WBC 8.6 RBC 3.31 L Hgb 10.7 L Hct 33.0 L MCV 99.7 H MCH 32.3 H MCHC 32.4 RDW 14.5 RDW Differential 52.4 H Plt Count 157 MPV 8.7 Immature Gran % (Auto) 0.200 Neut % (Auto) 88.1 H Lymph % (Auto) 6.6 L [place] % (Auto) 5.0 Eos % (Auto) 0.0 Baso % (Auto) 0.1 Absolute Neuts (auto) 7.6 Absolute Lymphs (auto) 0.57 L Total Counted Not Reportable Platelet Estimate ADEQUATE RBC Morphology NORM C+C Sodium 143 Potassium 3.7 Chloride 108 H Carbon Dioxide 29.0 Anion Gap 6 BUN 7 Creatinine 0.89 Estim Creat Clear Calc 55.82 Est GFR (MDRD) Af Amer 84 Est GFR (MDRD) Non-Af 70 BUN/Creatinine Ratio 7.9 L Glucose 170 H Calcium 8.7 - Medical Decision Making Patient presents in respiratory distress. Suspect COPD exacerbation. Chest x-ray was obtained to assess for pneumonia. Appropriate blood work was obtained to assess white count, H&H to rule out anemia, electrolytes and renal function. Patient received 3 aerosol treatments and she administered a DuoNeb prior to arrival. She also was given systemic steroids. Patient was reassessed at 5. There was significant improvement. There was minimal expiratory wheezing noted. Patient was reassessed at 2139. She is no longer wheezing. She states she feels better than she has the last several weeks. Plan is to discharge with tapering dose of prednisone and follow-up with her primary care physician. ED Disposition - Plan for ED Patient: Disposition: Home or Assisted Living Diagnosis: COPD with exacerbation, Bronchospasm Instructions: ED COPD Flare Prescriptions: Prednisone 10 mg PO UD #33 tab Referrals: Jennifer Coelho NP-C [Primary Care Provider] - 3-5 Days
[2019-01-10 20:45] VITALS: PULSE 104; RESP 18
[2019-01-10] MEDS: Albuterol 2.5 MG/3 ML VIAL.NEB. INHALATION ×3 (21:58→21:59)
[2019-01-10 22:00] VITALS: BP 118/98; PULSE 120; RESP 23; O2SAT 93
== END 2019-01-10 22:23 | disposition home or self-care (01) ==
PROVIDERS: Emergency Provider Emergency Medicine; Family Provider Nurse Practitioner Family; PCP Nurse Practitioner Family
DX: J44.1 Chronic obstructive pulmonary disease with (acute) exacerbation (principal); J98.01 Acute bronchospasm; J96.11 Chronic respiratory failure with hypoxia; C92.10 Chronic myeloid leukemia, BCR/ABL-positive, not having achieved remission; F32.9 Major depressive disorder, single episode, unspecified; M79.7 Fibromyalgia; F41.1 Generalized anxiety disorder; I10 Essential (primary) hypertension; Z99.81 Dependence on supplemental oxygen; Z79.899 Other long term (current) drug therapy; Z87.891 Personal history of nicotine dependence
CPT/HCPCS: 71046; 80048; 85025; 93005; 94640; 99285; A4216

== ENCOUNTER 2019-02-22 01:48 | Inpatient (IN) | payer MEDICAID, SELFPAY ==
[2019-02-12 13:14] VITALS: BMI 33.0
[2019-02-22] VITALS (21 sets, daily range): BP systolic 110–149; BP diastolic 41–110; PULSE 108–149; RESP 17–25; TEMP 36.9–38.8; O2SAT 2–98; BMI 32.7; BMI 32.0; BMI 32.1
[2019-02-22] MEDS: proMETHazine 25 MG/ML Syringe 6.25 MG IV (02:11)
[2019-02-22] MEDS: Loperamide 2 MG Capsule 4 MG PO (02:11)
[2019-02-22] MEDS: 0.9% Normal Saline 1,000 ML 1000 ML IV (02:11)
[2019-02-22] MEDS: Dicyclomine 20 MG/2 ML Vial IM (02:12)
[2019-02-22 02:16] LABS: Absolute Lymphocyte Count 2.71 X10^3/ul (0.83-4.51); Absolute Neutrophil Count 11.8 X10^3/uL (2.0-7.7); Basophil# 0.02 X10^3/uL; Basophil% 0.1 % (0-1); Eosinophil# 0.14 X10^3/uL; Eosinophils% 0.9 % (0-5); Hematocrit 36.6 % (37-47); Lymphocyte # 2.71 X10^3/ul (4.0); Lymphocyte % 16.6 % (19-41); Mean Corp Hgb Conc 32.8 g/gl (32-36); Mean Corpuscular Hgb 31.5 pg (27.0-32.0); Mean Corpuscular Volume 96.1 fL (81-99); Mean Platelet Vol. 8.8 fl (6.2-12.0); Monocyte# 1.42 X10^3/uL; Monocyte% 8.7 % (0-10); Neutrophil # 11.82 X10^3/uL (2.7-7.7); Neutrophil % 72.5 % (47-70); Platelet Count 229 K/mm3 (150-450); RBC Distribution Width CV 13.7 % (11.6-14.6); RBC Distribution Width SD 48.2 fl (35.1-43.9); Red Blood Count 3.81 M/mm3 (4.2-5.4); White Blood Count 16.3 K/mm3 (4.4-11.0)
[2019-02-22 02:24] LABS: ALB/GLOB Ratio 0.8 RATIO (0.9-2.4); AST(SGOT) 12 U/L (15-37); Alanine Aminotransfer ALT/SGPT 14 U/L (13-56); Albumin, Serum 2.6 g/dL (3.2-5.0); Alkaline Phosphatase 73 U/L (45-117); Anion Gap 8 (5-15); BUN 7 mg/dL (7-18); BUN/Creat Ratio 6.9 RATIO (10-20); Calcium,Total 7.5 mg/dL (8.5-10.1); Chloride 106 mmol/L (98-107); Creatinine, Serum 1.01 mg/dL (0.55-1.02); Differential Indicated SCAN CRITERIA MET; EST Glomerular Filtration Rate 60 mL/min (>60); Est Glom Filt Rate - Afr Amer 73 mL/min (>60); Estimated Creatinine Clearance 49.19 ml/min; Globulin 3.3 g/dL (2.2-4.2); Glucose 101 mg/dL (74-106); POSITIVE COUNT NO; POSITIVE DIFFERENTIAL NO; POSITIVE MORPHOLOGY YES; Potassium 2.9 mmol/L (3.5-5.1); Protein, Total 5.9 g/dL (6.4-8.2); Sodium Level 142 mmol/L (136-145)
[2019-02-22 02:25] LABS: Lactic Acid 1.5 mmol/L (0.4-2.0)
--- NOTE | 2019-02-22 02:48 | ED.VISSUMM ---
- ER Visit Summary Date of Service: 02/22/19 Chief Complaint: [Vomiting and diarrhea and abdominal pain] History of Present Illness: The patient is a 58 F [to the emergency department with vomiting and diarrhea that started 2 days ago. Patient states the vomiting is mostly improved however she still having watery stools about every 15 minutes. She describes intermittent abdominal pain and cramping. She has had fever at home up to 101.7. She denies recent travel or surgery. She denies recent antibiotic usage. She denies sick contacts. Patient does have a history of ulcerative colitis, COPD, hypertension, and CML.] Physical Examination: [HEENT-PERRLA, EOMI. Cranial nerves II through XII grossly intact. TMs clear. Mucous membranes dry. No adenopathy. Cardiovascular-regular rate and rhythm without murmur or ectopy Lungs-clear to auscultation, chest wall stable without crepitus or subcu emphysema Abdomen-hyperactive bowel sounds, soft. Patient has some mild diffuse tenderness. There is no rebound, rigidity, or perineal signs. Extremities-intact ?4, normal range of motion, normal pulses, atraumatic] Test Results: [CBC with differential showed a white count 16,000, hemoglobin 12, hematocrit 37, placed 229. Chemistry showed a sodium of 142, potassium 2.9, chloride 106, CO2 28, BUN 7, creatinine 1.01. Lactate was 1.5.] Stool ordered for enteric pathogens. Emergency Department Course and Treatment: [Patient presented tachycardic and was given a liter normal same fluid bolus. Patient was given a dose of Zofran and Lomotil. Patient given potassium chloride 40 mEq p.o.] Treatment Plan: [Admit for IV hydration and symptom management.] Disposition: [Admit] Impression: [Viral gastroenteritis Dehydration Hypokalemia] This note was generated with [employer] dictation software. It may contain incorrect words, spelling, and punctuation that were not noted in review of the chart prior to signing ED Disposition - Plan for ED Patient: Referrals: Jennifer Coelho NP-C [Primary Care Provider] -
--- NOTE | 2019-02-22 02:51 | PCM.HP.STD ---
Problem List (1) Acute gastroenteritis Status: Acute (2) Sepsis Status: Acute History of Present Illness Date of Admission: 02/22/19 Chief Complaint: nausea, vomiting and diarrhea The patient is a 58 year old F with a significant history of CML; hypertension; ulcerative colitis; general anxiety disorder; fibromyalgia; former tobacco abuse; COPD on home 4 L of oxygen who presented to the emergency department with 3-day history of persistent nausea; vomiting and diarrhea. Reportedly patient had about 8-10 stools per day. Associated with her symptoms is a fever of 101.7 while at home; chills; and abdominal pain. She denies any sick contacts. She denies eating any food different from the ordinary. She has good appetite. At the emergency department patient was found to have a fever of 100.3 Fahrenheit; tachycardia; tachypnea. Her potassium was 2.9. Also she had elevated white count of 16,000. Past Medical History Past Medical History (Chronic Problems): Chronic Problems (Last Reviewed 02/22/19 @ 03:52 by Aashish Martinez MD) HTN (hypertension) (Chronic) Fibromyalgia (Chronic) Nicotine abuse (Chronic) Seasonal allergies (Chronic) RUQ pain (Chronic) Stage 3 severe COPD by GOLD classification (Chronic) Chronic hypoxemic respiratory failure (Chronic) Ulcerative colitis (Chronic) Carpal tunnel syndrome (Chronic) Obesity (BMI 30.0-34.9) (Chronic) Poor compliance with medication (Chronic) CML (chronic myelocytic leukemia) (Chronic) DREW (generalized anxiety disorder) (Chronic) Emphysema of lung (Chronic) Depression (Chronic) History of cardiac cath (Chronic) 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 History of hysterectomy (Chronic) History of hemorrhoidectomy (Chronic) cataract surgery (Chronic) Medical History: Medical History (Last Reviewed 02/22/19 @ 03:52 by Aashish Martinez MD) HTN (hypertension) (Chronic) I10 Fibromyalgia (Chronic) M79.7 Nicotine abuse (Chronic) Z72.0 Seasonal allergies (Chronic) J30.2 RUQ pain (Chronic) R10.11 Stage 3 severe COPD by GOLD classification (Chronic) J44.9 Chronic hypoxemic respiratory failure (Chronic) J96.11 DREW (generalized anxiety disorder) (Chronic) F41.1 Emphysema of lung (Chronic) J43.9 Depression (Chronic) F32.9 History of hysterectomy (Chronic) Z98.890, Z90.710 cataract surgery (Chronic) Allergies Penicillins Allergy (Severe, Verified 02/22/19 01:51) Hives azithromycin Adverse Reaction (Severe, Verified 02/22/19 01:51) Diarrhea codeine Adverse Reaction (Severe, Verified 02/22/19 01:51) Vomiting ondansetron HCl [From Zofran (as hydrochloride)] Adverse Reaction (Severe, Verified 02/22/19 01:51) Nausea pregabalin [From Lyrica] Adverse Reaction (Severe, Verified 02/22/19 01:51) i can't see propoxyphene napsylate [From Darvocet-N 100] Adverse Reaction (Severe, Verified 02/22/19 01:51) Vomiting Sulfa (Sulfonamide Antibiotics) Adverse Reaction (Intermediate, Verified 02/22/19 01:51) Hives Home Medications: Ambulatory Orders Medication Instructions Recorded ALPRAZolam [Xanax] 0.5 mg PO Q6H PRN PRN 10/18/18 Albuterol Aerosols [Ventolin 2.5 mg INHALATION Q4H PRN PRN 10/18/18 Aerosols] Budesonide/Formoterol Fumarate 2 puff IH BID 10/18/18 [Symbicort 160-4.5 Mcg Inhaler] Buspirone HCl 20 mg PO TID 10/18/18 Diltiazem CD [Cardizem CD] 240 mg PO DAILY 10/18/18 Omeprazole 40 mg PO DAILY 10/18/18 Potassium Chloride [Klor-Con] 20 meq PO BID 10/18/18 Prochlorperazine Maleate 10 mg PO Q6H 10/18/18 [Compazine] Sertraline HCl [Zoloft] 50 mg PO DAILY 10/18/18 Fexofenadine HCl [[employer] Allergy] 180 mg PO DAILY PRN PRN #0 10/23/18 Prednisone 10 mg PO DAILY #30 tab 10/23/18 fluticasone propionate 50 1 spray INTRANASAL BID #16 g 12/24/18 mcg/actuation nasal spray,suspension Sertraline HCl [Zoloft] 25 mg PO DAILY 01/10/19 albuterol sulfate HFA 90 2 puff INHALATION Q4H PRN PRN #18 g 01/14/19 mcg/actuation aerosol inhaler tiotropium bromide 18 mcg capsule 1 cap INHALATION DAILY #30 inh 01/14/19 with inhalation device Surgical History: Surgical History (Last Reviewed 02/22/19 @ 03:52 by Aashish Martinez MD) History of cardiac cath (Chronic) Z98.890 History of cranial surgery (Chronic) Z98.890 due to closed fontanell History of hemorrhoidectomy (Chronic) Z98.890 Surgical History: hysterectomy, - - Hemorrhoidectomy, 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 Lives: Alone Smoking Status: Former smoker Alcohol: None - *Family History Maternal Family History: Family History (Last Reviewed 02/22/19 @ 03:52 by Aashish Martinez MD) Mother Ovarian cancer Brother Heart disease Grandmother Heart disease Grandfather Heart disease History Items: - - mother with ovarian cancer; denies family history of any blood disorders or blood cancers Paternal Family History: Family History (Last Reviewed 02/22/19 @ 03:52 by Aashish Martinez MD) Mother Ovarian cancer Brother Heart disease Grandmother Heart disease Grandfather Heart disease History Items: Diabetes, - - father was exposed from agent orange Review of Systems Constitutional: Reports: Chills, Fever. Denies: Weight Change HEENT: Denies: Head Aches, Sinus Congestion, Sinus Drainage Cardiovascular: Denies: Chest Pain, Palpitations Respiratory: Denies: Cough, Shortness of breath at rest, Sputum production Gastrointestinal: Reports: Abdominal Pain, Diarrhea, Nausea, Vomiting Genitourinary: Denies: Dysuria Musculoskeletal: Denies: Joint Pain, Joint Tenderness Skin: Denies: Rash, Wounds Neurological: Denies: Numbness, Tingling, Focal weakness Psychiatric: Denies: Anxiety, Depression, Homicidal Ideations, Suicidal Ideations Hematologic/ Lymphatic: Denies: Easy Bruising, Easy Bleeding VTE Information - Inpt Only VTE Present on Admission: No VTE Mechan Device Prophylaxis: None VTE Pharm Prophylaxis ordered?: Yes Patient Problems: Active and Suspected Problems (Last Reviewed 02/22/19 @ 03:52 by Aashish Martinez MD) Acute gastroenteritis (Acute) Sepsis (Acute) - Physical Exam General: Alert, Oriented x3, Cooperative HEENT: Atraumatic, PERRLA, EOMI, Normocephalic Neck: Supple, No JVD, Negative Carotid Bruits Lungs: Tachypneic, Wheezes - very mild Cardiovascular: No murmurs, Tachycardic Abdomen: Bowel Sounds Present, Soft, Tender Extremities: No edema, Capillary Refill Less than 3 Seconds Skin: No rashes, No breakdown Musculoskeletal: No Tenderness to Palpation of Joints or Extremities Neurological: Neuro grossly intact Psych/Mental Status: Normal Affect, Appropriate Vital Signs Temp Pulse Resp BP Pulse Ox 100.3 F H 144 H 17 139/96 H 98 02/22/19 02:49 02/22/19 02:49 02/22/19 02:49 02/22/19 02:49 02/22/19 02:49 Oxygen Flow Rate (L/min) 4 Oxygen Delivery Method Nasal Cannula Weight: 81.2 kg Body Mass Index (BMI) 32.7 Laboratory Tests Past 24 Hrs 02/22/19 02/22/19 02/22/19 01:55 01:55 01:55 WBC 16.3 H RBC 3.81 L Hgb 12.0 Hct 36.6 L MCV 96.1 MCH 31.5 MCHC 32.8 RDW 13.7 RDW Differential 48.2 H Plt Count 229 MPV 8.8 Immature Gran % (Auto) 1.200 H Neut % (Auto) 72.5 H Lymph % (Auto) 16.6 L [place] % (Auto) 8.7 Eos % (Auto) 0.9 Baso % (Auto) 0.1 Absolute Neuts (auto) 11.8 H Absolute Lymphs (auto) 2.71 Total Counted Not Reportable Differential Comment Sodium 142 Potassium 2.9 L Chloride 106 Carbon Dioxide 28.0 Anion Gap 8 BUN 7 Creatinine 1.01 Estim Creat Clear Calc 49.19 Est GFR (MDRD) Af Amer 73 Est GFR (MDRD) Non-Af 60 BUN/Creatinine Ratio 6.9 L Glucose 101 Lactic Acid 1.5 Calcium 7.5 L Total Bilirubin 0.40 AST 12 L ALT 14 Alkaline Phosphatase 73 Total Protein 5.9 L Albumin 2.6 L Globulin 3.3 Albumin/Globulin Ratio 0.8 L Assessment/Plan All Active Problems (Last Reviewed 02/22/19 @ 03:52 by Aashish Martinez MD) Acute gastroenteritis (Acute) Sepsis (Acute) The patient is a 58 year old F with a significant history of CML; hypertension; ulcerative colitis; general anxiety disorder; fibromyalgia; former tobacco abuse; COPD on home 4 L of oxygen who presented to the emergency department with 3-day history of persistent nausea; vomiting and diarrhea; and also with fever chills; abdominal pain; tachycardia; tachypnea; leukocytosis and hypokalemia consistent with probable sepsis secondary to acute gastroenteritis. Sepsis second acute gastroenteritis Patient meets SIRS criteria with fever of 101.7 (fever of 100.3 at the hospital); tachycardia; tachypnea; leukocytosis with white count of 16,000. Of note patient has CML but her recent white count was within range. And of note patient is on home prednisone. Although her gastroenteritis could be viral because of a history of CML and fever and chills antibiotic was ordered. Different diagnosis include a flare of ulcerative colitis. We will order Solu-Medrol 40 mg daily. Trend CBC Enteric stool pathogen ordered from the ED. Will order C. difficile. Fecal leukocytes ordered. X-ray of abdomen ordered. Supportive treatment with with lactated Ringer's and IV potassium. Patient is allergic to Zofran. On home p.o. Compazine. Will change to IV Compazine. Lactic acid and blood cultures ordered. Hypokalemia On presentation her potassium was 2.9. Likely this is due to nausea and vomiting. Received potassium 40 mEq p.o. x1 at the ED. Will order potassium chloride 40 mEq by IV. Start patient on lactated Ringer's with potassium. Trend BMP. Check magnesium Placed on MedSurg with telemetry. Hypertension On presentation her blood pressure was slightly above goal Cardizem continued Trend blood pressures Pseudo-hypocalcemia. Patient with calcium level of 7.5. Albumin of 2.6 Corrected calcium is 8.6. COPD Stable Patient is on home prednisone 10 mg daily. Solu-Medrol 40 mg daily ordered for a probable flare of ulcerative colitis. If Solu-Medrol discontinue consider resuming home prednisone. Tiotropium and Symbicort ordered PRN albuterol by inhalation continued. Depression/anxiety disorder Xanax and buspirone ordered Zoloft continued DVT prophylaxis Subcutaneous Lovenox. Code Visit Inpatient E&M: 82101 In Hosp L3
--- NOTE | 2019-02-22 03:34 | RAD_ITS ---
HISTORY: Diarrhea COMPARISON: CTA chest 03/11/2018 FINDINGS: XR Abdomen 2 Views: Protuberant abdomen. No bowel obstruction. Gas present within nondilated small and large bowel. Very little colonic stool and this correlates with the provided history of diarrhea. No soft tissue mass, organomegaly, or suspicious calcifications. Atelectatic plaques or scarring within the right lung base. Chronic blunting of the left costophrenic angle. RAD/Abdomen Single View IMPRESSION: 1. No bowel obstruction. Very little colonic stool which correlates with the clinical history. 2. Atelectatic plaques or scarring at the right lung base. at 0458 Reported and signed by: Surya Jaramillo MD Electronically Signed: Surya Jaramillo, at 4:57 EDT Tel , Service support ,
[2019-02-22 04:08] LABS: Magnesium 0.6 mg/dL (1.6-2.6)
[2019-02-22] MEDS: Ibuprofen 400 MG Tablet PO (04:22)
[2019-02-22] MEDS: proCHLORPERazine 10 MG/2 ML Vial IV ×2 (04:22→21:32)
[2019-02-22 04:41] LABS: Color, Urine Yellow (Yellow); Glucose, Dipstick Normal (Normal); Ketone-Dipstick Negative (Negative); Leukocyte Esterase-Dipstick 100 /ul (Negative); Nitrite-Dipstick Negative (Negative); Occult Blood-Urine 50 /ul (Negative); Protein-Dipstick 30 mg/dl (Negative); Urine Bilirubin Dipstick Negative (Negative); Urine Clarity Sl. Cloudy (Clear); Urine Urobilinogen Normal (Normal); Urine pH 6.5 (5.0 - 8.0)
[2019-02-22 04:55] LABS: Mucous, Urine 1+ /hpf (<or=2+)
[2019-02-22 04:56] LABS: Bacteria 1+ /hpf (None Seen); Red Blood Cells-Urine 0-5 SEEN /hpf (0-5); Squamous Epithelial Cells - UA 0-5 SEEN /hpf (5-10); White Blood Cells 5-10 SEEN /hpf (0-5)
[2019-02-22] MEDS: Ciprofloxacin 400 MG/200 ML BAG 200 MG IV ×2 (05:11→21:01)
[2019-02-22] MEDS: busPIRone 5 MG Tablet 20 MG PO ×3 (06:38→21:32)
[2019-02-22] MEDS: Magnesium Sulfate 4gm/100mL 4 GM/100 ML IV.SOLN. IV (06:41)
[2019-02-22] MEDS: Potassium Chloride 10mEq/100mL 10 MEQ/100 ML IV.SOLN. 100 MEQ IV BOLUS ×4 (06:55→10:41)
[2019-02-22] MEDS: Ipratropium/Albuterol Sulfate 3 ML AMPUL.NEB INHALATION ×3 (07:27→20:10)
[2019-02-22] MEDS: Pantoprazole Sodium 40 MG Tablet PO (08:11)
[2019-02-22] MEDS: dilTIAZem CD 240 MG Capsule PO (08:11)
[2019-02-22] MEDS: Fluticasone 0.05% 1 SPRAY NASAL.SRY NASAL ×2 (08:12→21:39)
[2019-02-22] MEDS: Sertraline 50 MG Tablet 75 MG PO (08:13)
--- NOTE | 2019-02-22 10:09 | CM.UR ---
ESTEPHANIA JUNIOR Face to Face with patient for initial transition planning/care coordination assessment. ESTEPHANIA JUNIOR introduced self and role at [facility]. Patient sitting in chair, alert and oriented. Patient willing to participate in assessment and is able to answer all questions appropriately. Care providers, pharmacy, and demographics verified. Patient wishes to discharge home with resumption of her PUBLIC INFORMATION SPECIALIST 2 hours/week. States gets PUBLIC INFORMATION SPECIALIST 1 hour 2 days per week from [facility]. PCP: Jennifer Coelho RESIDENTIAL CARE OFFICER Specialists: Dr. stein (pul); oncologist: she can't remember name but here at [place]. also has palliative care provider: wally. Preferred Pharmacy: [facility] or [facility] Insurance: [employer] Prescription Benefit: Yes Living Will/HPOA: Yes, uncle Joshua Craft HPOA LNOK: Uncle Living Arrangements: Patient lives alone in handicap accessible apartment. ADLs: Needs help with showering, cleaning, laundry, etc. states she is getting sob more easily and has decreased activity tolerance. States she only showers the 2 days per week the PUBLIC INFORMATION SPECIALIST comes and then they try to do as much other stuff that they can. States laundry room is on other side of apartment complex. States she cannot manage going that far, with laundry, etc--gets too sob. [facility] Chaya is first name--she can't remember last name. DME: Patient states she has raised toilet, grab bars, rollator, nebulizer, and home oxygen at 4 LPM through [employer]. HHC: [facility] INFORMATION SPECIALIST through [facility]. Aides come for 2 hours per week-->2 days 1 hour each day. States that she tried to get waiver but was denied. States she tried to get a scooter/electric w/c but was denied. Disposition Plan: Patient to discharge home with resumption of PUBLIC INFORMATION SPECIALIST. Caitlin Jauregui RN, CCM.
[2019-02-22] MEDS: Enoxaparin 40 MG/0.4 ML Syringe SC (10:41)
[2019-02-22 12:22] LABS: Anion Gap 7 (5-15); BUN 6 mg/dL (7-18); BUN/Creat Ratio 7.1 RATIO (10-20); Calcium,Total 7.5 mg/dL (8.5-10.1); Chloride 109 mmol/L (98-107); Creatinine, Serum 0.84 mg/dL (0.55-1.02); EST Glomerular Filtration Rate 74 mL/min (>60); Est Glom Filt Rate - Afr Amer 90 mL/min (>60); Estimated Creatinine Clearance 59.15 ml/min; Glucose 176 mg/dL (74-106); Sodium Level 139 mmol/L (136-145)
--- NOTE | 2019-02-22 13:48 | PN_ITS ---
Patient Problems: Active and Suspected Problems (Last Reviewed 02/22/19 @ 03:52 by Aashish Martinez MD) Acute gastroenteritis (Acute) Sepsis (Acute) Subjective: No BM today. Nausea no vomiting. No recent travel, sick contacts, farm animal contact, well water. Fevers improved. No abdominal pain. - Physical Exam General: Alert, Oriented x3, Cooperative HEENT: Atraumatic, PERRLA, EOMI, Normocephalic Neck: Supple, No JVD, Negative Carotid Bruits Lungs: Clear to auscultation, Normal air movement Cardiovascular: Regular rate, No murmurs Abdomen: Bowel Sounds Present, Soft, Non Tender Extremities: No edema, Capillary Refill Less than 3 Seconds Skin: No rashes, No breakdown Musculoskeletal: No Tenderness to Palpation of Joints or Extremities Neurological: Cranial nerves II-XII grossly intact Psych/Mental Status: Normal Affect, Appropriate, Alert and oriented to time, place, person, mood and affect Vital Signs Temp Pulse Resp BP Pulse Ox 98.8 F 113 H 20 H 114/79 97 02/22/19 10:30 02/22/19 10:30 02/22/19 10:30 02/22/19 10:30 02/22/19 10:30 Oxygen Flow Rate (L/min) 4 Oxygen Delivery Method Nasal Cannula Weight: 176 lb Body Mass Index (BMI) 32.1 Intake and Output for Last 24 Hours 02/20/19 02/21/19 02/22/19 23:59 23:59 23:59 Intake Total 1207 / 1207 Output Total 200 / 200 Balance 1007 / 1007 Laboratory Tests Past 24 Hrs 02/22/19 02/22/19 02/22/19 01:55 01:55 01:55 WBC 16.3 H RBC 3.81 L Hgb 12.0 Hct 36.6 L MCV 96.1 MCH 31.5 MCHC 32.8 RDW 13.7 RDW Differential 48.2 H Plt Count 229 MPV 8.8 Immature Gran % (Auto) 1.200 H Neut % (Auto) 72.5 H Lymph % (Auto) 16.[address] [place] % (Auto) 8.7 Eos % (Auto) 0.9 Baso % (Auto) 0.1 Absolute Neuts (auto) 11.8 H Absolute Lymphs (auto) 2.71 Total Counted Not Reportable Differential Comment Sodium 142 Potassium 2.9 L Chloride 106 Carbon Dioxide 28.0 Anion Gap 8 BUN 7 Creatinine 1.01 Estim Creat Clear Calc 49.19 Est GFR (MDRD) Af Amer 73 Est GFR (MDRD) Non-Af 60 BUN/Creatinine Ratio 6.9 L Glucose 101 Lactic Acid 1.5 Calcium 7.5 L Magnesium Total Bilirubin 0.40 AST 12 L ALT 14 Alkaline Phosphatase 73 Total Protein 5.9 L Albumin 2.6 L Globulin 3.3 Albumin/Globulin Ratio 0.8 L Urine Color Urine Clarity Urine pH Ur Specific Lam[place] Urine Protein Urine Glucose (UA) Urine Ketones Urine Occult Blood Urine Nitrite Urine Bilirubin Urine Urobilinogen Ur Leukocyte Esterase Urine RBC Urine WBC Ur Squamous Epith Cells Urine Bacteria Urine Mucus 02/22/19 02/22/19 02/22/19 01:55 04:35 11:40 WBC RBC Hgb Hct MCV MCH MCHC RDW RDW Differential Plt Count MPV Immature Gran % (Auto) Neut % (Auto) Lymph % (Auto) [facility] % (Auto) Eos % (Auto) Baso % (Auto) Absolute Neuts (auto) Absolute Lymphs (auto) Total Counted Differential Comment Sodium 139 Potassium 4.0 Chloride 109 H Carbon Dioxide 23.0 Anion Gap 7 BUN 6 L Creatinine 0.84 Estim Creat Clear Calc 59.15 Est GFR (MDRD) Af Amer 90 Est GFR (MDRD) Non-Af 74 BUN/Creatinine Ratio 7.1 L Glucose 176 H Lactic Acid Calcium 7.5 L Magnesium 0.6 L* Total Bilirubin AST ALT Alkaline Phosphatase Total Protein Albumin Globulin Albumin/Globulin Ratio Urine Color Yellow Urine Clarity Sl. Cloudy Urine pH 6.5 Ur Specific Lamont 1.010 Urine Protein 30 H Urine Glucose (UA) Normal Urine Ketones Negative Urine Occult Blood 50 H Urine Nitrite Negative Urine Bilirubin Negative Urine Urobilinogen Normal Ur Leukocyte Esterase 100 H Urine RBC 0-5 SEEN Urine WBC 5-10 SEEN Ur Squamous Epith Cells 0-5 SEEN Urine Bacteria 1+ Urine Mucus 1+ Medical Necessity - Tobacco Use Smoking Status: Former smoker Assessment/Plan All Active Problems (Last Reviewed 02/22/19 @ 03:52 by Aashish Martinez MD) Acute gastroenteritis (Acute) Sepsis (Acute) 1. Acute sepsis 2/2 acute gastroenteritis - in immunocompromised pt. negative lactate, + fever + leukocytosis, + tachypnea + tachycardia. Improving. Some nausea no vomiting. No hx Cdiff. Continue cipro/flagyl. KUB without obstruction. 2. Hx UC - does not follow GI. Does not take anything for this regularly Recommend outpatient GI evaluation. Continue steroid taper. Protonix. 3. Hypokalemia, Hypomagnesemia - 4 g given overnight. Repleted K. Recheck in AM. 4. COPD/emphysema with chronic hypoxic respiratory failure - chronically on O2, prednisone 10 mg, aerosols. Quit smoking 3 years ago. Follows with Dr. Ridley. 5. CML - recent WBC was normal. Continue gleevec. 6. HTN - stable DVT ppx: lovenox DC planning: PTOT, plan for outpatient GI referral. This patient was seen by Lizandro Rodriguez PA-C under the supervision of Dr. Angel
[2019-02-22 14:38] LABS: Phosphorus 2.1 mg/dL (2.5-4.9)
[2019-02-22] MEDS: Ensure Clear 120 ML Liquid PO ×2 (18:18→21:32)
[2019-02-22] MEDS: ALPRAZolam 0.5 MG Tablet PO (20:00)
[2019-02-23] VITALS (16 sets, daily range): BP systolic 119–141; BP diastolic 67–91; PULSE 89–117; RESP 18–26; TEMP 36.7–37.3; O2SAT 94–98
[2019-02-23] MEDS: busPIRone 5 MG Tablet 20 MG PO ×3 (05:50→21:25)
[2019-02-23 06:19] LABS: Hematocrit 30.9 % (37-47); Hemoglobin 10.1 g/dl (12.0-15.0); Mean Corp Hgb Conc 32.7 g/gl (32-36); Mean Corpuscular Hgb 31.5 pg (27.0-32.0); Mean Corpuscular Volume 96.3 fL (81-99); Mean Platelet Vol. 8.8 fl (6.2-12.0); Platelet Count 202 K/mm3 (150-450); RBC Distribution Width CV 13.9 % (11.6-14.6); RBC Distribution Width SD 49.1 fl (35.1-43.9); Red Blood Count 3.21 M/mm3 (4.2-5.4); White Blood Count 12.9 K/mm3 (4.4-11.0)
[2019-02-23 06:31] LABS: Scan Indicated on CBC? Y/N NO
[2019-02-23] MEDS: Ipratropium/Albuterol Sulfate 3 ML AMPUL.NEB INHALATION ×3 (06:57→18:58)
[2019-02-23 07:27] LABS: Anion Gap 5 (5-15); BUN 6 mg/dL (7-18); Calcium,Total 7.6 mg/dL (8.5-10.1); Chloride 114 mmol/L (98-107); Creatinine, Serum 0.67 mg/dL (0.55-1.02); EST Glomerular Filtration Rate 97 mL/min (>60); Est Glom Filt Rate - Afr Amer 117 mL/min (>60); Estimated Creatinine Clearance 74.15 ml/min; Glucose 118 mg/dL (74-106); Magnesium 2.3 mg/dL (1.6-2.6); Potassium 3.6 mmol/L (3.5-5.1); Sodium Level 145 mmol/L (136-145)
--- NOTE | 2019-02-23 07:34 | NURSING ---
Aware that Tess Millan RN just obtained VS on Janel and per [facility] they are to be Q1hr.
[2019-02-23] MEDS: Ensure Clear 120 ML Liquid PO ×4 (09:30→21:20)
[2019-02-23] MEDS: Enoxaparin 40 MG/0.4 ML Syringe SC (09:35)
[2019-02-23] MEDS: Sertraline 50 MG Tablet 75 MG PO (09:37)
[2019-02-23] MEDS: dilTIAZem CD 240 MG Capsule PO (09:37)
[2019-02-23] MEDS: Fluticasone 0.05% 1 SPRAY NASAL.SRY NASAL ×2 (09:37→21:24)
[2019-02-23] MEDS: Pantoprazole Sodium 40 MG Tablet PO (09:37)
[2019-02-23] MEDS: Ciprofloxacin 400 MG/200 ML BAG 200 MG IV (09:38)
[2019-02-23] MEDS: ALPRAZolam 0.5 MG Tablet PO ×3 (09:47→22:47)
--- NOTE | 2019-02-23 14:20 | PN_ITS ---
<Lizandro Rodriguez - Last Filed: 02/23/19 14:17> Patient Problems: Active and Suspected Problems (Last Reviewed 02/22/19 @ 03:52 by Aashish Martinez MD) Acute gastroenteritis (Acute) Sepsis (Acute) Subjective: Ongoing bloating and diarrhea. Tolerating PO soup and toast without nausea or vomiting. Pt will attempt to eat more substantial foods this afternoon. She is very anxious about discharge and feels she is unsafe to go until tomorrow. She denies all urinary symptoms. No fever or chills. - Physical Exam General: Alert, Oriented x3, Cooperative HEENT: Atraumatic, PERRLA, EOMI, Normocephalic Neck: Supple, No JVD, Negative Carotid Bruits Lungs: Clear to auscultation, Normal air movement Cardiovascular: Regular rate, No murmurs Abdomen: Bowel Sounds Present, Soft, Non Tender Extremities: No edema, Capillary Refill Less than 3 Seconds Skin: No rashes, No breakdown Musculoskeletal: No Tenderness to Palpation of Joints or Extremities Neurological: Cranial nerves II-XII grossly intact Psych/Mental Status: Normal Affect, Appropriate, Alert and oriented to time, place, person, mood and affect Vital Signs Temp Pulse Resp BP Pulse Ox 98.6 F 100 24 H 137/89 H 96 02/23/19 12:52 02/23/19 13:39 02/23/19 13:39 02/23/19 12:52 02/23/19 12:52 Oxygen Flow Rate (L/min) 4 Oxygen Delivery Method Nasal Cannula Weight: 175 lb 14.862 oz Body Mass Index (BMI) 32.1 Intake and Output for Last 24 Hours 02/21/19 02/22/19 02/23/19 23:59 23:59 23:59 Intake Total 1830 / 1830 2253 / 2253 Output Total 200 / 200 700 / 700 Balance 1630 / 1630 1553 / 1553 Microbiology Past 72 Hours 02/22/19 15:00 Enteric Bacteriology - Final Stool 02/22/19 15:00 C. difficile DNA Amplification - Final Stool 02/22/19 15:00 Stool Lactoferrin - Final Stool Laboratory Tests Past 24 Hrs 02/22/19 02/23/19 02/23/19 11:40 05:40 05:40 WBC 12.9 H RBC 3.21 L Hgb 10.1 L Hct 30.9 L MCV 96.3 MCH 31.5 MCHC 32.7 RDW 13.9 RDW Differential 49.1 H Plt Count 202 MPV 8.8 Sodium 145 Potassium 3.6 Chloride 114 H Carbon Dioxide 26.0 Anion Gap 5 BUN 6 L Creatinine 0.67 Estim Creat Clear Calc 74.15 Est GFR (MDRD) Af Amer 117 Est GFR (MDRD) Non-Af 97 BUN/Creatinine Ratio 9.0 L Glucose 118 H Calcium 7.6 L Phosphorus 2.1 L Magnesium 2.3 Medical Necessity - Tobacco Use Smoking Status: Former smoker Assessment/Plan All Active Problems (Last Reviewed 02/22/19 @ 03:52 by Aashish Martinez MD) Acute gastroenteritis (Acute) Sepsis (Acute) 1. Acute sepsis 2/2 acute gastroenteritis - in immunocompromised pt. negative lactate, + fever + leukocytosis, + tachypnea + tachycardia. Improving. Some nausea no vomiting. No hx Cdiff. Negative enteric panel. Negative C diff. DC abx. KUB without obstruction. No urinary symptoms. 2. Hx UC - does not follow GI. Does not take anything for this regularly Recommend outpatient GI evaluation. Continue steroid taper -solumedrol to PO. P rotonix. 3. Hypokalemia, Hypomagnesemia - 4 g given overnight. Repleted K. Recheck in AM. 4. COPD/emphysema with chronic hypoxic respiratory failure - chronically on O2, prednisone 10 mg, aerosols. Quit smoking 3 years ago. Follows with Dr. Ridley. 5. CML - recent WBC was normal. Continue gleevec. 6. HTN - stable DVT ppx: lovenox DC planning: PTOT, plan for outpatient GI referral. Likely home tomorrow. Advance diet. This patient was seen by Lizandro Rodriguez PA-C under the supervision of Dr. Angel <Shreyas Angel - Last Filed: 02/23/19 14:47> - Physical Exam Vital Signs Temp Pulse Resp BP Pulse Ox 98.6 F 100 24 H 137/89 H 96 02/23/19 12:52 02/23/19 13:39 02/23/19 13:39 02/23/19 12:52 02/23/19 12:52 Oxygen Flow Rate (L/min) 4 Oxygen Delivery Method Nasal Cannula Weight: 175 lb 14.862 oz Body Mass Index (BMI) 32.1 Intake and Output for Last 24 Hours 02/21/19 02/22/19 02/23/19 23:59 23:59 23:59 Intake Total 1830 / 1830 2253 / 2253 Output Total 200 / 200 700 / 700 Balance 1630 / 1630 1553 / 1553 Microbiology Past 72 Hours 02/22/19 15:00 Enteric Bacteriology - Final Stool 02/22/19 15:00 C. difficile DNA Amplification - Final Stool 02/22/19 15:00 Stool Lactoferrin - Final Stool Laboratory Tests Past 24 Hrs 02/23/19 02/23/19 05:40 05:40 WBC 12.9 H RBC 3.21 L Hgb 10.1 L Hct 30.9 L MCV 96.3 MCH 31.5 MCHC 32.7 RDW 13.9 RDW Differential 49.1 H Plt Count 202 MPV 8.8 Sodium 145 Potassium 3.6 Chloride 114 H Carbon Dioxide 26.0 Anion Gap 5 BUN 6 L Creatinine 0.67 Estim Creat Clear Calc 74.15 Est GFR (MDRD) Af Amer 117 Est GFR (MDRD) Non-Af 97 BUN/Creatinine Ratio 9.0 L Glucose 118 H Calcium 7.6 L Magnesium 2.3 Code Visit Addendum: Dr. Angel I personally examined the patient and reviewed the chart. I agree with the above. 58-year-old female with a history of CML and ulcerative colitis presenting with viral gastroenteritis. She was initially started on Cipro and Flagyl on the off chance that this could be bacterial and also C. difficile, however her C. difficile test came back negative as did her her enteric study. Also she denies any urinary symptoms despite having a somewhat convincing UA therefore we will discontinue the Cipro as well. She has not had an ulcerative colitis flare for several years and does not have a director of investigations. There was some concern that this could also be an active flare and therefore she was started on prednisone on admission. If she continues to improve would plan to di discontinue charge the prednisone prior to discharge. She is on Cardizem as an outpatient for her blood pressure and the fact that she has been having nausea and vomiting not been able to keep any medication down may explain part of her tachycardia. We will continue to monitor. Inpatient E&M: [id number] Subs Hosp L2
--- NOTE | 2019-02-23 15:01 | NURSING ---
pt refusing Neutra-Phos. Doesnt like tast of it. This nurse had mixed it in apple juice and then offered to mix it in water. Pt still refusing to take it. Lizandro duarte.
--- NOTE | 2019-02-23 17:28 | NURSING ---
Sitting in chair. Ate Chicken -all but two bites of it and all of her cottage cheese. Listening to music on her cell phone. Denies further needs.
[2019-02-23] MEDS: oxyCODONE 5 MG Tablet PO (18:15)
--- NOTE | 2019-02-23 21:43 | NURSING ---
Addendum entered by Lisseth Jasmine 02/23/19 21:47: Natalie BEST Stated Dr. Angel was sitting by Marek MANUEL when Telemetry and IV were discussed. Original Note: Spoke with Natalie BSET States [id number] MANUEL okay to DC Telemetry and leave IV out.
[2019-02-23] MEDS: Albuterol 2.5 MG/3 ML VIAL.NEB. INHALATION (23:18)
[2019-02-24] VITALS (7 sets, daily range): BP systolic 128–139; BP diastolic 82–92; PULSE 103–120; RESP 18–22; TEMP 36.8–37.3; O2SAT 95–97
[2019-02-24 05:50] LABS: Absolute Neutrophil Count 8.3 X10^3/uL (2.0-7.7); Hematocrit 29.5 % (37-47); Hemoglobin 9.7 g/dl (12.0-15.0); Lymphocyte % 7.9 % (19-41); Mean Corp Hgb Conc 32.9 g/gl (32-36); Mean Corpuscular Hgb 31.7 pg (27.0-32.0); Mean Corpuscular Volume 96.4 fL (81-99); Mean Platelet Vol. 8.9 fl (6.2-12.0); Monocyte# 0.95 X10^3/uL; Monocyte% 9.4 % (0-10); Platelet Count 200 K/mm3 (150-450); RBC Distribution Width CV 13.9 % (11.6-14.6); RBC Distribution Width SD 49.5 fl (35.1-43.9); Red Blood Count 3.06 M/mm3 (4.2-5.4); White Blood Count 10.1 K/mm3 (4.4-11.0)
[2019-02-24 06:10] LABS: POSITIVE COUNT NO; POSITIVE DIFFERENTIAL NO; POSITIVE MORPHOLOGY NO
[2019-02-24] MEDS: busPIRone 5 MG Tablet 20 MG PO ×2 (06:28→12:43)
[2019-02-24] MEDS: Ipratropium/Albuterol Sulfate 3 ML AMPUL.NEB INHALATION ×2 (06:48→13:14)
--- NOTE | 2019-02-24 09:17 | NURSING ---
PT RESTING QUIETLY IN BED, EYES CLOSED, RESP EASY
[2019-02-24] MEDS: dilTIAZem CD 240 MG Capsule PO (09:24)
[2019-02-24] MEDS: Fluticasone 0.05% 1 SPRAY NASAL.SRY NASAL (09:24)
[2019-02-24] MEDS: predniSONE 20 MG Tablet 40 MG PO (09:24)
[2019-02-24] MEDS: Sertraline 50 MG Tablet 75 MG PO (09:25)
[2019-02-24] MEDS: Pantoprazole Sodium 40 MG Tablet PO (09:25)
[2019-02-24] MEDS: Enoxaparin 40 MG/0.4 ML Syringe SC (09:25)
[2019-02-24] MEDS: ALPRAZolam 0.5 MG Tablet PO (09:28)
[2019-02-24] MEDS: Ensure Clear 120 ML Liquid PO ×2 (09:31→12:46)
--- NOTE | 2019-02-24 10:30 | CASEMGMT ---
RN CM in to discuss discharge needs with patient. Patient is current with [facility] for aide services. Therapy recommending additional therapy. Patient agreeable to PT/OT with [facility] at discharge, denied need for [facility] custodial. Patient is currently with [facility] for home oxygen and has portable tank with her. Updated [facility] regarding discharge today and adding PT/OT. Discharge paperwork faxed to [facility].
--- NOTE | 2019-02-24 10:48 | DCINST_ITS ---
- Discharge Diagnoses Current Active Problems: Current Active and Chronic Problems (Last Reviewed 02/22/19 @ 03:52 by Aashish Martinez MD) Acute gastroenteritis (Acute) Sepsis (Acute) You will use the following diet at home:: Cardiac Your food should be the consistency of: Regular Your liquids should be the consistency of: Regular/Thin Discharge Activity: Return to Normal Activity Allergies/Adverse Reactions: Allergies Penicillins Allergy (Severe, Verified 02/22/19 01:51) Hives azithromycin Adverse Reaction (Severe, Verified 02/22/19 01:51) Diarrhea codeine Adverse Reaction (Severe, Verified 02/22/19 01:51) Vomiting ondansetron HCl [From Zofran (as hydrochloride)] Adverse Reaction (Severe, Verified 02/22/19 01:51) Nausea pregabalin [From Lyrica] Adverse Reaction (Severe, Verified 02/22/19 01:51) i can't see propoxyphene napsylate [From Darvocet-N 100] Adverse Reaction (Severe, Verified 02/22/19 01:51) Vomiting Sulfa (Sulfonamide Antibiotics) Adverse Reaction (Intermediate, Verified 02/22/19 01:51) Hives Medications to take at Discharge ALPRAZolam [Xanax] 0.5 mg PO Q6H PRN PRN 10/18/18 Albuterol Aerosols [Ventolin Aerosols] 2.5 mg INHALATION Q4H PRN PRN 10/18/18 Budesonide/Formoterol Fumarate [Symbicort 160-4.5 Mcg Inhaler] 2 puff IH BID 10/18/18 Buspirone HCl 20 mg PO TID 10/18/18 Diltiazem CD [Cardizem CD] 240 mg PO DAILY 10/18/18 Omeprazole 40 mg PO DAILY 10/18/18 Potassium Chloride [Klor-Con] 20 meq PO BID 10/18/18 Prochlorperazine Maleate [Compazine] 10 mg PO Q6H 10/18/18 Sertraline HCl [Zoloft] 50 mg PO DAILY 10/18/18 Fexofenadine HCl [Wal-Fex Allergy] 180 mg PO DAILY PRN PRN #0 10/23/18 fluticasone propionate 50 mcg/actuation nasal spray,suspension 1 spray INTRANASAL BID #16 g 12/24/18 Sertraline HCl [Zoloft] 25 mg PO DAILY 01/10/19 albuterol sulfate HFA 90 mcg/actuation aerosol inhaler 2 puff INHALATION Q4H PRN PRN #18 g 01/14/19 tiotropium bromide 18 mcg capsule with inhalation device 1 cap INHALATION DAILY #30 inh 01/14/19 Imatinib Mesylate 400 mg PO DAILY MDD 400 mg 02/22/19 Prednisone 10 mg PO DAILY #30 tab 02/24/19 Prednisone 10 mg PO UD #27 tablet 02/24/19 The following prescriptions were given: Prednisone 10 mg PO UD #27 tablet Primary Care Physician: Jennifer Coelho NP-C [Primary Care Provider] - Please follow up with your Primary Care Physician in: 1-2 weeks Test Results: Test results from this visit will be discussed in further detail at your follow- up appointment, if applicable. Please Follow Up With: Ford Suarez MD When: 2-3 weeks Proposed Discharge Date: 02/24/19
--- NOTE | 2019-02-24 13:36 | DS.PCM_ITS ---
Discharge Date and Diagnosis - Problem List Patient Problems: Active and Suspected Problems (Last Reviewed 02/22/19 @ 03:52 by Aashish Martinez MD) Acute gastroenteritis (Acute) Sepsis (Acute) Date of Admission: 02/22/19 Date of Discharge: 02/24/19 - Primary Discharge Diagnosis Active and Suspected Problems (Last Reviewed 02/22/19 @ 03:52 by Aashish Martinez MD) Acute sepsis secondary to acute gastroenteritis-suspect viral Ulcerative colitis, possible flare Hypokalemia and hypomagnesemia secondary to diarrhea Hypertension COPD with no exacerbation History of CML on Gleevec Anxiety and depression - Secondary Discharge Diagnosis Chronic Problems (Last Reviewed 02/22/19 @ 03:52 by Aashish Martinez MD) HTN (hypertension) (Chronic) Fibromyalgia (Chronic) Nicotine abuse (Chronic) Seasonal allergies (Chronic) RUQ pain (Chronic) Stage 3 severe COPD by GOLD classification (Chronic) Chronic hypoxemic respiratory failure (Chronic) Ulcerative colitis (Chronic) Carpal tunnel syndrome (Chronic) Obesity (BMI 30.0-34.9) (Chronic) Poor compliance with medication (Chronic) CML (chronic myelocytic leukemia) (Chronic) DREW (generalized anxiety disorder) (Chronic) Emphysema of lung (Chronic) Depression (Chronic) History of cardiac cath (Chronic) 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 History of hysterectomy (Chronic) History of hemorrhoidectomy (Chronic) cataract surgery (Chronic) Hospital Course and Treatment Imaging Results: RAD/Abdomen Single View IMPRESSION: 1. No bowel obstruction. Very little colonic stool which correlates with the clinical history. 2. Atelectatic plaques or scarring at the right lung base. Operations: None Procedures: None Summary of Care Provided: Hospital course: The patient is a 58 year old F with past medical history of ulcerative colitis, CML, hypertension, obesity, COPD, who presented to the emergency room with nausea, vomiting, diarrhea, inability to tolerate oral intake. She had tachycardia and an elevated white blood cell count. She had significant as sociated abdominal cramping and bloating. She is felt to have sepsis secondary to gastroenteritis, and a possible ulcerative colitis exacerbation. She was started on Cipro Flagyl, and IV Solu-Medrol, made n.p.o. She was admitted to the general medical floor. KUBs was obtained which did not demonstrate any acute pathology. She responded well to steroids, and antibiotics. C. difficile test was negative, stool lactoferrin was positive, enteric panel was negative. Antibiotics were discontinued and she continued to improve. She was felt to have a viral gastroenteritis and possible ulcerative colitis. She was transitioned to oral prednisone therapy. She has never seen a GI physician in the past concerning her UC. Her diet was advanced, which she tolerated without any further nausea or vomiting. With the addition of a normal diet her stools started to become more formed. She was discharged home with home health in stable condition. She will need to have a prednisone taper, and she will need to follow-up with GI as an outpatient, recommended in 2 weeks, and will need to follow-up with her PCP in 1 to 2 weeks. This patient was seen by Lizandro Rodriguez PA-C under the supervision of Doctor Az. [] Patient Problems: Active and Suspected Problems (Last Reviewed 02/22/19 @ 03:52 by Aashish Martinez MD) Acute gastroenteritis (Acute) Sepsis (Acute) - Physical Exam General: Alert, Oriented x3, Cooperative HEENT: Atraumatic, PERRLA, EOMI, Normocephalic Neck: Supple, No JVD, Negative Carotid Bruits Lungs: Clear to auscultation, Normal air movement Cardiovascular: Regular rate, No murmurs Abdomen: Bowel Sounds Present, Soft, Non Tender Extremities: No edema, Capillary Refill Less than 3 Seconds Skin: No rashes, No breakdown Musculoskeletal: No Tenderness to Palpation of Joints or Extremities Neurological: Cranial nerves II-XII grossly intact Psych/Mental Status: Normal Affect, Appropriate, Alert and oriented to time, place, person, mood and affect Vital Signs Temp Pulse Resp BP Pulse Ox 98.5 F 120 H 18 139/92 H 97 02/24/19 09:19 02/24/19 09:19 02/24/19 11:00 02/24/19 09:19 02/24/19 09:19 Oxygen Flow Rate (L/min) 3 Oxygen Delivery Method Nasal Cannula Weight: 175 lb 14.862 oz Body Mass Index (BMI) 32.1 Intake and Output for Last 24 Hours 02/22/19 02/23/19 02/24/19 23:59 23:59 23:59 Intake Total 1830 / 1830 3213 / 3213 540 / 540 Output Total 200 / 200 1200 / 1200 Balance 1630 / 1630 2012 540 / 540 Microbiology Past 72 Hours 02/22/19 07:05 Blood Culture - Preliminary Blood Culture (Wb) - Anticubital Right No growth in 48 hours. 02/22/19 01:55 Blood Culture - Preliminary Blood Culture (Wb) - Anticubital Left No growth in 48 hours. 02/22/19 15:00 Enteric Bacteriology - Final Stool 02/22/19 15:00 C. difficile DNA Amplification - Final Stool 02/22/19 15:00 Stool Lactoferrin - Final Stool Laboratory Tests Past 24 Hrs 02/24/19 05:09 WBC 10.1 RBC 3.06 L Hgb 9.7 L Hct 29.5 L MCV 96.4 MCH 31.7 MCHC 32.9 RDW 13.9 RDW Differential 49.5 H Plt Count 200 MPV 8.9 Immature Gran % (Auto) 0.700 Neut % (Auto) 82.0 H Lymph % (Auto) 7.9 L Nash % (Auto) 9.4 Eos % (Auto) 0.0 Baso % (Auto) 0.0 Absolute Neuts (auto) 8.3 H Absolute Lymphs (auto) 0.80 L Total Counted Not Reportable Discharge Diet: Low fat/ Low Cholesterol, 2000 mg Sodium Diet Discharge Activity: Return to Normal Activity Home Medications: Medications to take at Discharge ALPRAZolam [Xanax] 0.5 mg PO Q6H PRN PRN 10/18/18 Albuterol Aerosols [Ventolin Aerosols] 2.5 mg INHALATION Q4H PRN PRN 10/18/18 Budesonide/Formoterol Fumarate [Symbicort 160-4.5 Mcg Inhaler] 2 puff IH BID 10/18/18 Buspirone HCl 20 mg PO TID 10/18/18 Diltiazem CD [Cardizem CD] 240 mg PO DAILY 10/18/18 Omeprazole 40 mg PO DAILY 10/18/18 Potassium Chloride [Klor-Con] 20 meq PO BID 10/18/18 Prochlorperazine Maleate [Compazine] 10 mg PO Q6H 10/18/18 Sertraline HCl [Zoloft] 50 mg PO DAILY 10/18/18 Fexofenadine HCl [Wal-Fex Allergy] 180 mg PO DAILY PRN PRN #0 10/23/18 fluticasone propionate 50 mcg/actuation nasal spray,suspension 1 spray INTRANASAL BID #16 g 12/24/18 Sertraline HCl [Zoloft] 25 mg PO DAILY 01/10/19 albuterol sulfate HFA 90 mcg/actuation aerosol inhaler 2 puff INHALATION Q4H PRN PRN #18 g 01/14/19 tiotropium bromide 18 mcg capsule with inhalation device 1 cap INHALATION DAILY #30 inh 01/14/19 Imatinib Mesylate 400 mg PO DAILY MDD 400 mg 02/22/19 Prednisone 10 mg PO DAILY #30 tab 02/24/19 Prednisone 10 mg PO UD #27 tab 02/24/19 Following Prescrptions Were Given to Patient: Prednisone 10 mg PO UD #27 tab Primary Care Physician: Jennifer Coelho NP-C [Primary Care Provider] - Please follow up with your Primary Care Physician in: 1-2 weeks Please Follow Up With: GI When: 2-3 weeks Disposition: Home with Home Health Minutes spent on discharge:: 35 Patient Condition:: Stable Medical Necessity - Tobacco Use Smoking Status: Former smoker Meaningful Use Info Meaningful Use Diagnoses (Choose all that apply): None applicable
--- NOTE | 2019-02-25 15:01 | CASEMGMT ---
ESTEPHANIA JUNIOR DC PHONE CALL DC DATE: 02/24/19 DC Disposition: Home with aide services through [facility]. LACE/STRATA: 09/10 Intro role of CM to patient via phone. Pt states she is doing well, filled prescription for prednisone and no questions re: f/u. Pt was not able to make appt with Dr. Suarez due to her insurance. Was able to make f/u appt with [facility] in [place]. No care improvement suggestions were given. Antelmo WERNER RN ACM.
== END 2019-02-24 14:08 | disposition home or self-care (01) | DRG 249 ==
LOC: ED 02:28 → MS3 03:37
PROVIDERS: Physician Assistant; Admitting Provider Hospitalist; Emergency Provider Emergency Medicine; Family Provider Nurse Practitioner Family; PCP Nurse Practitioner Family; Visit Provider Family Medicine
DX: A08.4 Viral intestinal infection, unspecified (principal); E87.6 Hypokalemia; E86.0 Dehydration; E83.42 Hypomagnesemia; C92.10 Chronic myeloid leukemia, BCR/ABL-positive, not having achieved remission; Z99.81 Dependence on supplemental oxygen; J96.11 Chronic respiratory failure with hypoxia; J43.9 Emphysema, unspecified; I10 Essential (primary) hypertension; K51.90 Ulcerative colitis, unspecified, without complications; E78.5 Hyperlipidemia, unspecified; F32.9 Major depressive disorder, single episode, unspecified; E66.9 Obesity, unspecified; Z68.32 Body mass index [BMI] 32.0-32.9, adult; Z87.891 Personal history of nicotine dependence; K21.9 Gastro-esophageal reflux disease without esophagitis
CPT/HCPCS: 36415; 74018; 80048; 80053; 81001; 83605; 83630; 83735; 84100; 85025; 85027; 87040; 87493; 87506; 94640; 97110; 97161; 97165; 97530; 97535; 99285; J7030; J7040; J7120; A4216; J0744

== ENCOUNTER 2019-03-13 11:54 | Inpatient (IN) | payer MEDICAID, SELFPAY ==
[2019-02-22 03:37] VITALS: BMI 32.1
[2019-03-13] VITALS (12 sets, daily range): BP systolic 110–140; BP diastolic 72–90; PULSE 104–144; RESP 17–24; TEMP 36.3–37.9; O2SAT 95–98; BMI 32.5; BMI 31.7; BMI 31.8
--- NOTE | 2019-03-13 12:12 | RAD_ITS ---
STUDY: X-RAY - ACUTE ABDOMINAL SERIES REASON FOR EXAM: Female, 58 years old. Nausea and vomiting for past 6 weeks. TECHNIQUE: Single view of the chest. Supine, and erect view(s) of the abdomen were obtained. COMPARISON: Comparison is made with prior examination dated February 22, 2019. FINDINGS: EKG electrode is seen. Stable scarring at the right lung base. Pleural parenchymal changes at the left lung base suggestive of left basilar infiltrate small effusion. There is cardiomegaly. Normal mediastinum and sven. Normal visualized pulmonary arteries. There is atherosclerotic tortuosity of the aortic arch and descending thoracic aorta. There is evidence of haustral thickening involving the transverse colon as well as the visualized descending colon. Colitis should be ruled out. The soft tissue structures of the abdomen and pelvis are unremarkable. There are diffuse degenerative changes of the visualized lumbar spine. Dextroscoliosis. RAD/Acute Abdomen Inc Chest IMPRESSION: Findings suspicious of colitis involving the transverse colon and descending colon. Small left pleural effusion with left basilar infiltrate. Electronically Signed: Presley Charles, at 14:04 EDT , Service support ,
--- NOTE | 2019-03-13 12:18 | ED.VIS.GEN ---
History of Present Illness Chief Complaint: Nausea/Vomiting/Diarrhea Informant: Patient Onset: Weeks - 6 weeks Timing: Continuous Quality: Vomiting and diarrhea 3-5 times per day x6 weeks Location: Not applicable Current Severity: Mild Maximum Severity: Moderate Worsened by: Nothing Relieved by: Nothing Associated Symptoms: Abdominal discomfort and distention Narrative: Patient is a middle-aged woman with history of ulcerative colitis who is presently on prednisone presents with nausea, vomiting and diarrhea associated with abdominal pain and distention for the past 6 weeks. She does report dry mouth, thirst and occasionally lightheadedness with standing rapidly. She denies hematemesis, melena hematochezia. She does report mucus in her stool. She is on no immunosuppressive meds for her ulcerative colitis. She is on prednisone. She denies fever, chills or night sweats. She denies change in the color of her urine. Prior similar symptoms: Yes Recent Illness/Hospitalization: Yes - Past Medical History (1) CML (chronic myelocytic leukemia) Status: Chronic (2) Depression Status: Chronic (3) Emphysema of lung Status: Chronic (4) Fibromyalgia Status: Chronic (5) DREW (generalized anxiety disorder) Status: Chronic (6) HTN (hypertension) Status: Chronic (7) Nicotine abuse Status: Chronic (8) Obesity (BMI 30.0-34.9) Status: Chronic (9) Poor compliance with medication Status: Chronic (10) Stage 3 severe COPD by GOLD classification Status: Chronic (11) Ulcerative colitis Status: Chronic Past Medical History - Allergies and Home Meds Allergies/Adverse Reactions: Allergies Penicillins Allergy (Severe, Verified 03/13/19 11:57) Hives azithromycin Adverse Reaction (Severe, Verified 03/13/19 11:57) Diarrhea codeine Adverse Reaction (Severe, Verified 03/13/19 11:57) Vomiting ondansetron HCl [From Zofran (as hydrochloride)] Adverse Reaction (Severe, Verified 03/13/19 11:57) Nausea pregabalin [From Lyrica] Adverse Reaction (Severe, Verified 03/13/19 11:57) i can't see propoxyphene napsylate [From Darvocet-N 100] Adverse Reaction (Severe, Verified 03/13/19 11:57) Vomiting Sulfa (Sulfonamide Antibiotics) Adverse Reaction (Intermediate, Verified 03/13/19 11:57) Hives Primary Care Physician: Jennifer Coelho NP-C [Primary Care Provider] - Prior records reviewed: Yes Surgical History: hysterectomy, - - Hemorrhoidectomy, 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 Lives: Alone Smoking Status: Former smoker Alcohol: None - Family History Maternal Family History: Family History (Last Reviewed 02/22/19 @ 03:52 by Aashish Martinez MD) Mother Ovarian cancer Brother Heart disease Grandmother Heart disease Grandfather Heart disease Family History: Reports: - - mother with ovarian cancer; denies family history of any blood disorders or blood cancers Paternal Family History: Family History (Last Reviewed 02/22/19 @ 03:52 by Aashish Martinez MD) Mother Ovarian cancer Brother Heart disease Grandmother Heart disease Grandfather Heart disease Family History: Reports: Diabetes, - - father was exposed from agent orange Review of Systems General: Reports: Malaise. Denies: Chills, Fever, Subjective, Sweats, Weight loss Eyes: Denies: Visual changes - bilaterally, Blurred Vision - bilaterally ENT: Denies: Rhinorrhea, Sore throat Cardiovascular: Denies: Chest pain, Palpitations, Heart racing Respiratory: Denies: Dyspnea, Cough, Dyspnea on exertion, Orthopnea, Paroxysmal nocturnal dyspnea Gastrointestinal: Reports: Abdominal pain, Nausea, Vomiting, Diarrhea, -. Denies: Constipation, Melena, Hematochezia Genitourinary: Denies: Dysuria, Hematuria, Frequency Musculoskeletal: Denies: Myalgias, Arthralgias, Back pain, Extremity Pain Skin: Denies: Rash, Wounds Neurological: Reports: Weakness. Denies: Headache, Parasthesia, Numbness, -, - Psych: Reports: Depression Hematologic: Denies: Easy bruising, Easy bleeding Allergy: Denies: Uticaria Physical Exam Vital Signs/Narrative: Vital Signs Temp Pulse Resp BP Pulse Ox 03/13/19 11:57 99.7 F H 134 H 17 129/87 H 95 Inital Vital Signs reviewed: Yes Abdomen: Soft, No masses, Tender, Hypoactive bowel sounds. Negative for: Nontender, Nondistended, Normal bowel sounds, Guarding, Rebound tenderness, Hyperactive bowel sounds, Hepatomegaly, Splenomegaly, Mass Back: Negative for: Nontender, Normal Inspection Extremities: Negative for: Nontender, No edema Skin: No rash, No Trauma, Pallor. Negative for: Normal color, Cyanosis, Diaphoresis, Jaundice Neurological: Alert, Oriented x3, Cranial nerves II-XII grossly intact, Normal Strength, Normal Sensation Psychological: Depressed Diagnostic/Tx/Re-eval - Rhythm Strip Rhythm Strip: Sinus Tach Rate: 133 Ectopy: None - Medical Decision Making With history of 6 weeks of nausea, vomiting diarrhea basic metabolic panel was obtained to assess electrode and specifically potassium, renal function and CO2/anion gap. CBC was obtained to evaluate for anemia since she appears pale. Because her abdomen is distended tympanitic and there is no history of surgery abdominal films were obtained. Monitor reveals a sinus tachycardia of 133. She received 1 L of normal saline wide open. She reports allergy to Zofran. 5 mg of Reglan was ordered. Patient failed p.o. challenge. Patient does have diarrhea. Suspect this is secondary to ulcerative colitis. Since she is unable to drink liquids hospitalist has been paged for 23 observation. ED Disposition - Plan for ED Patient: Disposition: Acute Care Hospital [facility] Diagnosis: Abdominal pain, vomiting, and diarrhea, Hypokalemia, History of ulcerative colitis Referrals: Jennifer Coelho, GAVINO-C [Primary Care Provider] -
[2019-03-13 12:54] LABS: Absolute Lymphocyte Count 1.89 X10^3/ul (0.83-4.51); Absolute Neutrophil Count 5.9 X10^3/uL (2.0-7.7); Basophil# 0.02 X10^3/uL; Basophil% 0.2 % (0-1); Eosinophil# 0.07 X10^3/uL; Eosinophils% 0.8 % (0-5); Hematocrit 33.2 % (37-47); Hemoglobin 10.8 g/dl (12.0-15.0); Lymphocyte # 1.89 X10^3/ul (4.0); Lymphocyte % 20.9 % (19-41); Mean Corp Hgb Conc 32.5 g/gl (32-36); Mean Corpuscular Hgb 31.4 pg (27.0-32.0); Mean Corpuscular Volume 96.5 fL (81-99); Mean Platelet Vol. 8.6 fl (6.2-12.0); Monocyte# 1.06 X10^3/uL; Monocyte% 11.7 % (0-10); Neutrophil # 5.93 X10^3/uL (2.7-7.7); Neutrophil % 65.5 % (47-70); Platelet Count 179 K/mm3 (150-450); RBC Distribution Width CV 14.1 % (11.6-14.6); RBC Distribution Width SD 50.2 fl (35.1-43.9); Red Blood Count 3.44 M/mm3 (4.2-5.4); White Blood Count 9.1 K/mm3 (4.4-11.0)
[2019-03-13] MEDS: 0.9% Normal Saline 1,000 ML 1000 ML IV (12:59)
[2019-03-13] MEDS: Metoclopramide 10 MG/2 ML Vial 5 MG IV ×3 (12:59→19:41)
[2019-03-13 13:04] LABS: POSITIVE COUNT NO; POSITIVE DIFFERENTIAL NO; POSITIVE MORPHOLOGY NO
[2019-03-13 13:23] LABS: Anion Gap 7 (5-15); BUN 7 mg/dL (7-18); BUN/Creat Ratio 10.3 RATIO (10-20); Calcium,Total 7.3 mg/dL (8.5-10.1); Chloride 103 mmol/L (98-107); Creatinine, Serum 0.68 mg/dL (0.55-1.02); EST Glomerular Filtration Rate 95 mL/min (>60); Est Glom Filt Rate - Afr Amer 115 mL/min (>60); Estimated Creatinine Clearance 73.06 ml/min; Glucose 90 mg/dL (74-106); Potassium 2.7 mmol/L (3.5-5.1); Sodium Level 141 mmol/L (136-145)
--- NOTE | 2019-03-13 13:26 | ED.RN ---
lab called k+ of 2.7. dr lei aware
--- NOTE | 2019-03-13 15:15 | ED.RN ---
pt up to bsc. diarrhea. sob with minimal activity. hr up to 170's. diaphoretic. emesis unab;e to tolerate liquid potassium. aware and to consult hospitalist
--- NOTE | 2019-03-13 15:35 | NURSING ---
MED SURG OBS RUTHANNS ABD PAIN, V,D, HYPOKALEMIA, COLITIS
--- NOTE | 2019-03-13 16:15 | CASEMGMT ---
RN CM Assessment Introduced role of RN CM to patient and patient friend Cyndy at bedside.? Patient is alert, oriented and able?to participate in RN CM Assessment. ?Care providers, pharmacy, and demographics verified. Presentation: N/V/D for 6 weeks associated with Abd Pain, SOB. Recently Admitted. Admit Dx: Re-Admit: Yes, Inpt 02/22-02/24/19 fo rSepsis s/t Acute Gastroenteritis. Dc'd with resumption Barriers/Issues: Patient appears Forgetful, Lives alone with a lack of social support system. States her listed Next of Kin/HPOA- Uncle is in his 70's and is a snow bird living in [place] and then in [place]. States only person able to help her is her friend Cyndy #[phone]. States that HHC with [facility] stopped last time she was admitted, states her Aide was fired and they did not tell her until she called them. It appeared at last DC that HHC was resumed with addition of PT/OT- however patient states that she has not received PT/OT. Her friend assisted her with bath x1week ago and this was her last Bath, needs another one. Does not know her [employer] CM last name or have her number on her, her first name is Chaya. States a lady named Kathya that works with her Psychologist takes her shopping and providing transportation for errands, etc. This CM discussed concrete batcher planning with possibility to LONG TERM- however patient states that she is not ready for that as she has a nice 2 bedroom apartment. States cannot afford to privately hire Aide help. States f/u with GI Specialist a couple days ago but he did not do anything and told her to continue and check back in 2 weeks. PCP: Jennifer Coelho Specialists: Pulm- Dr Ridley, Onc- Cannot recall name but is in [place], Palliative Care- Dr Gonzalez. GI- ? Preferred Pharmacy: [facility] [place] Insurance: [employer] Rx Benefit: Yes? LNOK: Uncle Joshua Craft LW/HPOA: Yes [facility]- uncle Joshua Craft Living Arrangements:?Lives alone in a handicap accessible apartment ADL?s: Ambulates Independently and with walker, Assistance with Bathing and House Chores. Transportation: Patient states she drives but also a lady named Kathya at her Psychologist Office. Friend Cyndy will Upon DC. DME: [employer], [employer], [employer], [place], Home O2 at 4L Continuous- [employer]. HHC: Past with [facility] Goal: Home, would like HH Aide- see Barriers/Issue above. DC PLAN: Home with HHC, Possible CCN for education with [employer] for Ulcerative Colitis, Management. Imelda Reynolds RNCM
--- NOTE | 2019-03-13 16:40 | PCM.HP.STD ---
Problem List (1) Acute gastroenteritis Status: Acute (2) Hypokalemia Status: Acute (3) History of ulcerative colitis Status: Acute (4) HTN (hypertension) Status: Chronic (5) Chronic hypoxemic respiratory failure Status: Chronic (6) Ulcerative colitis Status: Chronic (7) CML (chronic myelocytic leukemia) Status: Chronic (8) Depression Status: Chronic History of Present Illness Date of Admission: 03/13/19 Chief Complaint: Nausea, vomiting, diarrhea, abdominal pain The patient is a 58 year old F with PMH as below who presents with continued nausea, vomiting, and diarrhea. She also has abdominal pain and bloating. This is been going on she says for the last 6 weeks. She was recently admitted and started on Cipro/Flagyl for possible C. difficile. Testing came back negative and that was discontinued and she was discharged on steroids as well as her imatinib that she takes for her CML. She states that she saw the director of consulting services 2 days ago who did not do anything into that he would see her in 2 weeks. She presents to the hospital today out of frustration and wanting this to be figured out. She has had no change in her symptoms since discharge and in the ER her only abnormality was a potassium of 2.7. Past Medical History Past Medical History (Chronic Problems): Chronic Problems (Last Reviewed 02/22/19 @ 03:52 by Aashish Martinez MD) HTN (hypertension) (Chronic) Fibromyalgia (Chronic) Nicotine abuse (Chronic) Seasonal allergies (Chronic) RUQ pain (Chronic) Stage 3 severe COPD by GOLD classification (Chronic) Chronic hypoxemic respiratory failure (Chronic) Ulcerative colitis (Chronic) Carpal tunnel syndrome (Chronic) Obesity (BMI 30.0-34.9) (Chronic) Poor compliance with medication (Chronic) CML (chronic myelocytic leukemia) (Chronic) DREW (generalized anxiety disorder) (Chronic) Emphysema of lung (Chronic) Depression (Chronic) History of cardiac cath (Chronic) 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 History of hysterectomy (Chronic) History of hemorrhoidectomy (Chronic) cataract surgery (Chronic) Medical History: Medical History (Last Reviewed 02/22/19 @ 03:52 by Aashish Martinez MD) HTN (hypertension) (Chronic) I10 Fibromyalgia (Chronic) M79.7 Nicotine abuse (Chronic) Z72.0 Seasonal allergies (Chronic) J30.2 RUQ pain (Chronic) R10.11 Stage 3 severe COPD by GOLD classification (Chronic) J44.9 Chronic hypoxemic respiratory failure (Chronic) J96.11 DREW (generalized anxiety disorder) (Chronic) F41.1 Emphysema of lung (Chronic) J43.9 Depression (Chronic) F32.9 History of hysterectomy (Chronic) Z98.890, Z90.710 cataract surgery (Chronic) Allergies Penicillins Allergy (Severe, Verified 03/13/19 11:57) Hives azithromycin Adverse Reaction (Severe, Verified 03/13/19 11:57) Diarrhea codeine Adverse Reaction (Severe, Verified 03/13/19 11:57) Vomiting ondansetron HCl [From Zofran (as hydrochloride)] Adverse Reaction (Severe, Verified 03/13/19 11:57) Nausea pregabalin [From Lyrica] Adverse Reaction (Severe, Verified 03/13/19 11:57) i can't see propoxyphene napsylate [From Darvocet-N 100] Adverse Reaction (Severe, Verified 03/13/19 11:57) Vomiting Sulfa (Sulfonamide Antibiotics) Adverse Reaction (Intermediate, Verified 03/13/19 11:57) Hives Home Medications: Ambulatory Orders Medication Instructions Recorded ALPRAZolam [Xanax] 0.5 mg PO Q6H PRN PRN 10/18/18 Albuterol Aerosols [Ventolin 2.5 mg INHALATION Q4H PRN PRN 10/18/18 Aerosols] Budesonide/Formoterol Fumarate 2 puff IH BID 10/18/18 [Symbicort 160-4.5 Mcg Inhaler] Buspirone HCl 20 mg PO TID 10/18/18 Diltiazem CD [Cardizem CD] 240 mg PO DAILY 10/18/18 Omeprazole 40 mg PO DAILY 10/18/18 Potassium Chloride [Klor-Con] 20 meq PO BID 10/18/18 Prochlorperazine Maleate 10 mg PO Q6H 10/18/18 [Compazine] Sertraline HCl [Zoloft] 50 mg PO DAILY 10/18/18 Fexofenadine HCl [[employer] Allergy] 180 mg PO DAILY PRN PRN #0 10/23/18 Sertraline HCl [Zoloft] 25 mg PO DAILY 01/10/19 albuterol sulfate HFA 90 2 puff INHALATION Q4H PRN PRN #18 g 01/14/19 mcg/actuation aerosol inhaler tiotropium bromide 18 mcg capsule 1 cap INHALATION DAILY #30 inh 01/14/19 with inhalation device Imatinib Mesylate 400 mg PO DAILY MDD 400 mg 02/22/19 Prednisone 10 mg PO DAILY #30 tab 02/24/19 Cyclobenzaprine HCl 5 mg PO TID PRN PRN 03/13/19 Fluticasone Propionate 1 spray INTRANASAL BID 03/13/19 Oxycodone [Oxyir] 5 mg PO Q4H PRN PRN 03/13/19 Surgical History: Surgical History (Last Reviewed 02/22/19 @ 03:52 by Aashish Martinez MD) History of cardiac cath (Chronic) Z98.890 History of cranial surgery (Chronic) Z98.890 due to closed fontanell History of hemorrhoidectomy (Chronic) Z98.890 Surgical History: hysterectomy, - - Hemorrhoidectomy, 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 Lives: Alone Smoking Status: Former smoker Tobacco Use: Cigarettes Alcohol: None Drugs: None - *Family History Maternal Family History: Family History (Last Reviewed 02/22/19 @ 03:52 by Aashish Martinez MD) Mother Ovarian cancer Brother Heart disease Grandmother Heart disease Grandfather Heart disease History Items: - - mother with ovarian cancer; denies family history of any blood disorders or blood cancers Paternal Family History: Family History (Last Reviewed 02/22/19 @ 03:52 by Aashish Martinez MD) Mother Ovarian cancer Brother Heart disease Grandmother Heart disease Grandfather Heart disease History Items: Diabetes, - - father was exposed from agent orange Review of Systems Constitutional: Denies: Chills, Fever, Weight Change HEENT: Denies: Head Aches, Sinus Congestion, Sinus Drainage Cardiovascular: Denies: Chest Pain, Palpitations Respiratory: Reports: Shortness of Breath. Denies: Cough, Shortness of breath at rest, Sputum production Gastrointestinal: Reports: Abdominal Pain, Diarrhea, Nausea, Vomiting Genitourinary: Denies: Dysuria Musculoskeletal: Denies: Joint Pain, Joint Tenderness Skin: Denies: Rash, Wounds Neurological: Denies: Numbness, Tingling, Focal weakness Psychiatric: Denies: Anxiety, Depression Hematologic/ Lymphatic: Denies: Easy Bruising, Easy Bleeding VTE Information - Inpt Only VTE Present on Admission: No Patient Problems: Active and Suspected Problems (Last Reviewed 02/22/19 @ 03:52 by Aashish Martinez MD) Abdominal pain, vomiting, and diarrhea (Acute) Hypokalemia (Acute) History of ulcerative colitis (Acute) - Physical Exam General: Alert, Oriented x3, Cooperative, No apparent distress HEENT: Atraumatic, PERRLA, EOMI, Normocephalic Oral: Dry Mucosa Neck: Supple, No JVD Lungs: Clear to auscultation, Normal air movement, No rhonchi, No wheeze, No rales Cardiovascular: Regular rate, Regular Rhythm, Normal S1, Normal S2, No murmurs Abdomen: Soft, Distended, Obese, Tender Extremities: No edema, Capillary Refill Less than 3 Seconds Skin: No rashes, No breakdown Neurological: Neuro grossly intact, Sensory exam intact to light touch and pain Psych/Mental Status: Normal Affect, Appropriate Vital Signs Temp Pulse Resp BP Pulse Ox 99.5 F H 135 H 22 H 139/83 H 97 03/13/19 15:46 03/13/19 16:00 03/13/19 16:00 03/13/19 16:00 03/13/19 16:00 Oxygen Flow Rate (L/min) 4 Oxygen Delivery Method Nasal Cannula Weight: 178 lb 2.136 oz Body Mass Index (BMI) 32.5 Laboratory Tests Past 24 Hrs 03/13/19 03/13/19 12:40 12:40 WBC 9.1 RBC 3.44 L Hgb 10.8 L Hct 33.2 L MCV 96.5 MCH 31.4 MCHC 32.5 RDW 14.1 RDW Differential 50.2 H Plt Count 179 MPV 8.6 Immature Gran % (Auto) 0.900 Neut % (Auto) 65.5 Lymph % (Auto) 20.9 Evans % (Auto) 11.7 H Eos % (Auto) 0.8 Baso % (Auto) 0.2 Absolute Neuts (auto) 5.9 Absolute Lymphs (auto) 1.89 Total Counted Not Reportable Sodium 141 Potassium 2.7 L* Chloride 103 Carbon Dioxide 31.0 Anion Gap 7 BUN 7 Creatinine 0.68 Estim Creat Clear Calc 73.06 Est GFR (MDRD) Af Amer 115 Est GFR (MDRD) Non-Af 95 BUN/Creatinine Ratio 10.3 Glucose 90 Calcium 7.3 L Assessment/Plan All Active Problems (Last Reviewed 02/22/19 @ 03:52 by Aashish Martinez MD) Acute gastroenteritis (Acute) Sepsis (Acute) Abdominal pain, vomiting, and diarrhea (Acute) Hypokalemia (Acute) History of ulcerative colitis (Acute) 1. Viral gastroenteritis/ulcerative colitis -She is allergic to Zofran therefore will proceed with giving her Reglan hopefully this can possibly increase motility and help alleviate some of the gaseous distention that is seen on the abdominal x-ray -She with transitional diet -We will continue with oral prednisone and await stool samples -IV fluids at 100 cc/h -If treatment with Reglan does not work, she may need a CT scan of her abdomen and pelvis to better characterize what is going on, her last CT of her abdomen was in 2014 which demonstrated diffuse colitis 2. CML -This is in chronic remission -Continue with imatinib 3. Hypokalemia -She received 40 mEq p.o. in the ER -We will obtain a magnesium and phosphorus as these can affect colonic motility 4. COPD with chronic hypoxic respiratory failure -She is on 4 L nasal cannula at baseline -We will continue with her home aerosols 5. Depression/anxiety -She is on Zoloft and BuSpar as well as Xanax -Stable, will continue 6. GERD -Stable -Continue with PPI 7. HTN -SBP is stable -Continue with Cardizem DVT: Lovenox Code Visit OBSV E&M: [id number] Initial observation care L3
[2019-03-13] MEDS: 0.9% Normal Saline 1,000 ML 100 ML IV (18:31)
[2019-03-13] MEDS: Albuterol 2.5 MG/3 ML VIAL.NEB. INHALATION (19:22)
[2019-03-13] MEDS: Potassium Chloride 10mEq/100mL 10 MEQ/100 ML IV.SOLN. 100 MEQ IV BOLUS ×4 (19:29→22:44)
[2019-03-13] MEDS: dilTIAZem CD 240 MG Capsule PO (20:16)
[2019-03-13] MEDS: Acetaminophen 325 MG Tablet 650 MG PO (21:03)
[2019-03-13] MEDS: 0.9% Normal Saline 1,000 ML 999 ML IV (21:03)
[2019-03-13] MEDS: Fluticasone 0.05% 1 SPRAY NASAL.SRY NASAL (21:04)
[2019-03-13] MEDS: busPIRone 5 MG Tablet 20 MG PO (21:40)
[2019-03-13] MEDS: Ipratropium/Albuterol Sulfate 3 ML AMPUL.NEB INHALATION (22:29)
[2019-03-13] MEDS: Metoprolol Tartrate 5 MG/5 ML Vial IV (22:36)
[2019-03-14] VITALS (20 sets, daily range): BP systolic 106–127; BP diastolic 70–79; PULSE 93–115; RESP 16–24; TEMP 36.6–37.6; O2SAT 93–96
[2019-03-14] MEDS: Ipratropium/Albuterol Sulfate 3 ML AMPUL.NEB INHALATION ×6 (02:29→22:24)
[2019-03-14] MEDS: 0.9% Normal Saline 1,000 ML 100 ML IV ×2 (04:41→18:38)
[2019-03-14 06:32] LABS: Absolute Lymphocyte Count 1.69 X10^3/ul (0.83-4.51); Absolute Neutrophil Count 7.3 X10^3/uL (2.0-7.7); Basophil# 0.02 X10^3/uL; Basophil% 0.2 % (0-1); Eosinophil# 0.05 X10^3/uL; Eosinophils% 0.5 % (0-5); Hematocrit 31.4 % (37-47); Hemoglobin 10.1 g/dl (12.0-15.0); Lymphocyte # 1.69 X10^3/ul (4.0); Lymphocyte % 16.5 % (19-41); Mean Corp Hgb Conc 32.2 g/gl (32-36); Mean Corpuscular Hgb 31.2 pg (27.0-32.0); Mean Corpuscular Volume 96.9 fL (81-99); Mean Platelet Vol. 8.4 fl (6.2-12.0); Monocyte# 1.04 X10^3/uL; Monocyte% 10.1 % (0-10); Neutrophil # 7.33 X10^3/uL (2.7-7.7); Neutrophil % 71.3 % (47-70); Platelet Count 202 K/mm3 (150-450); RBC Distribution Width CV 14.1 % (11.6-14.6); RBC Distribution Width SD 47.3 fl (35.1-43.9); Red Blood Count 3.24 M/mm3 (4.2-5.4); White Blood Count 10.3 K/mm3 (4.4-11.0)
[2019-03-14 06:35] LABS: Differential Indicated SCAN CRITERIA MET; POSITIVE COUNT NO; POSITIVE DIFFERENTIAL NO; POSITIVE MORPHOLOGY YES
[2019-03-14 06:51] LABS: ALB/GLOB Ratio 0.7 RATIO (0.9-2.4); AST(SGOT) 12 U/L (15-37); Alanine Aminotransfer ALT/SGPT 13 U/L (13-56); Albumin, Serum 1.9 g/dL (3.2-5.0); Alkaline Phosphatase 64 U/L (45-117); Anion Gap 8 (5-15); BUN 7 mg/dL (7-18); BUN/Creat Ratio 13.4 RATIO (10-20); Calcium,Total 6.3 mg/dL (8.5-10.1); Chloride 109 mmol/L (98-107); Creatinine, Serum 0.52 mg/dL (0.55-1.02); EST Glomerular Filtration Rate 129 mL/min (>60); Est Glom Filt Rate - Afr Amer 156 mL/min (>60); Estimated Creatinine Clearance 95.54 ml/min; Globulin 2.7 g/dL (2.2-4.2); Glucose 82 mg/dL (74-106); Magnesium 0.7 mg/dL (1.6-2.6); Potassium 2.9 mmol/L (3.5-5.1); Protein, Total 4.6 g/dL (6.4-8.2)
[2019-03-14 06:55] LABS: Phosphorus 1.8 mg/dL (2.5-4.9)
[2019-03-14 06:56] LABS: Sodium Level 143 mmol/L (136-145)
[2019-03-14] MEDS: busPIRone 5 MG Tablet 20 MG PO ×3 (07:03→22:12)
[2019-03-14] MEDS: ALPRAZolam 0.5 MG Tablet PO ×2 (07:10→17:10)
--- NOTE | 2019-03-14 07:17 | PCM.PN.HOSP ---
Patient Problems: Active and Suspected Problems (Last Reviewed 02/22/19 @ 03:52 by Aashish Martinez MD) Abdominal pain, vomiting, and diarrhea (Acute) Hypokalemia (Acute) History of ulcerative colitis (Acute) Subjective: Patient is a 58-year-old lady with past medical history significant for CML currently on imatinib who presented with persistent nausea vomiting and diarrhea. Patient was found to have significant electrolyte abnormalities including hypokalemia hypophosphatemia as well as hypomagnesemia admitted to regular nursing floor for further management Objective: GENERAL: Appears ill looking HEENT: Atraumatic; EYES; Anicteric, Normal Conjunctiva NECK; supple, normal thyroid, RESPIRATORY: Diminished to auscultation CARDIOVASCULAR: Regular S1 S2, GI: Distended and tympanitic to percussion : No Renal angle tenderness; EXTREMITIES: No edema, no clubbing, MUSCULOSKELETAL: No Joint Tenderness; NEURO: Awake; no lateralizing signs. SKIN: No Rash PSYCH; flat affect Vitals/I&O's: Vital Signs Temp Pulse Resp BP Pulse Ox 99.7 F H 93 16 116/77 96 03/14/19 03:00 03/14/19 03:03 03/14/19 03:03 03/14/19 03:00 03/14/19 03:03 Oxygen Flow Rate (L/min) 4 Oxygen Delivery Method Nasal Cannula Weight: 78.744 kg Body Mass Index (BMI) 31.7 Intake and Output for Last 24 Hours 03/12/19 03/13/19 03/14/19 23:59 23:59 23:59 Intake Total 1907 / 1907 720 / 720 Output Total 200 / 200 300 / 300 Balance 1707 / 1707 420 / 420 Laboratory Results 03/13/19 12:40: WBC 9.1, RBC 3.44 L, Hgb 10.8 L, Hct 33.2 L, MCV 96.5, MCH 31.4, MCHC 32.5, RDW 14.1, RDW Differential 50.2 H, Plt Count 179, MPV 8.6, Immature Gran % (Auto) 0.900, Neut % (Auto) 65.5, Lymph % (Auto) 20.9, Darke % (Auto) 11.7 H, Eos % (Auto) 0.8, Baso % (Auto) 0.2, Absolute Neuts (auto) 5.9, Absolute Lymphs (auto) 1.89, Total Counted Not Reportable 03/13/19 12:40: Sodium 141, Potassium 2.7 L*, Chloride 103, Carbon Dioxide 31.0, Anion Gap 7, BUN 7, Creatinine 0.68, Estim Creat Clear Calc 73.06, Est GFR (MDRD) Af Amer 115, Est GFR (MDRD) Non-Af 95, BUN/Creatinine Ratio 10.3, Glucose 90, Calcium 7.3 L 03/14/19 06:10: Sodium 143, Potassium 2.9 L, Chloride 109 H, Carbon Dioxide 26.0, Anion Gap 8, BUN 7, Creatinine 0.52 L, Estim Creat Clear Calc 95.54, Est GFR (MDRD) Af Amer 156, Est GFR (MDRD) Non-Af 129, BUN/Creatinine Ratio 13.4, Glucose 82, Calcium 6.3 L*, Phosphorus 1.8 L, Magnesium 0.7 L*, Total Bilirubin 0.50, AST 12 L, ALT 13, Alkaline Phosphatase 64, Total Protein 4.6 L, Albumin 1.9 L, Globulin 2.7, Albumin/Globulin Ratio 0.7 L 03/14/19 06:10: WBC 10.3, RBC 3.24 L, Hgb 10.1 L, Hct 31.4 L, MCV 96.9, MCH 31.2, MCHC 32.2, RDW 14.1, RDW Differential 47.3 H, Plt Count 202, MPV 8.4, Immature Gran % (Auto) 1.400 H, Neut % (Auto) 71.3 H, Lymph % (Auto) 16.5 L, Darke % (Auto) 10.1 H, Eos % (Auto) 0.5, Baso % (Auto) 0.2, Absolute Neuts (auto) 7.3, Absolute Lymphs (auto) 1.69, Total Counted Not Reportable Current Medications Acetaminophen (Tylenol) 650 mg PO Q6H PRN PRN PRN Reason: Non-cardiac pain (mod-severe) Last Admin: 03/13/19 21:03 Dose: 650 mg Albuterol Sulfate (Ventolin Aerosols) 2.5 mg INHALATION Q4H PRN PRN PRN Reason: SOB &/OR WHEEZING Last Admin: 03/13/19 19:22 Dose: 2.5 mg Albuterol/Ipratropium (Duoneb) 3 ml INHALATION Q4H.RT [facility] Last Admin: 03/14/19 06:45 Dose: 3 ml Alprazolam (Xanax) 0.5 mg PO Q6H PRN PRN PRN Reason: ANXIETY Last Admin: 03/14/19 07:10 Dose: 0.5 mg Buspirone HCl (Buspar) 20 mg PO TID [facility] Last Admin: 03/14/19 07:03 Dose: 20 mg Cyclobenzaprine HCl (Cyclobenzaprine Hcl) 5 mg PO TID PRN PRN PRN Reason: SPASMS Diltiazem HCl (Cardizem Cd) 240 mg PO DAILY [facility] Last Admin: 03/13/19 20:16 Dose: 240 mg Enoxaparin Sodium (Lovenox) 40 mg SC DAILY@1000 [facility] Fluticasone Propionate (Flonase Nasal Alexander) 1 spray NASAL BID [facility] Last Admin: 03/13/19 21:04 Dose: 1 spray Sodium Chloride () 1,000 mls @ 100 mls/hr IV .Q10H [facility] Last Admin: 03/14/19 04:41 Dose: 100 mls/hr Calcium Gluconate 2 gm/ (Dextrose) 120 mls @ 60 mls/hr IV X1 ONE Stop: 03/14/19 08:52 Magnesium Sulfate () 4 gm in 100 mls @ 25 mls/hr IV X1 ONE Stop: 03/14/19 10:52 Potassium Phosphate 30 mm/ (Sodium Chloride) 260 mls @ 42 mls/hr IV X1 ONE Stop: 03/14/19 15:11 Imatinib Mesylate (Gleevec) 400 mg PO DAILY [facility] Loratadine (Claritin) 10 mg PO DAILY PRN PRN PRN Reason: nasal/sinus congestion Melatonin (Melatonin) 3 mg PO QHS PRN PRN PRN Reason: INSOMNIA Metoclopramide HCl (Reglan) 5 mg IV Q8H PRN PRN PRN Reason: nausea Last Admin: 03/13/19 19:41 Dose: 5 mg Oxycodone HCl (Oxyir) 5 mg PO Q4H PRN PRN PRN Reason: PAIN Pantoprazole Sodium (Protonix) 40 mg PO DAILY [facility] Prednisone () 10 mg PO DAILYCM [facility] Sertraline HCl (Zoloft) 75 mg PO DAILY [facility] Medical Necessity - Tobacco Use Smoking Status: Former smoker Tobacco Use: Cigarettes Assessment/Plan All Active Problems (Last Reviewed 02/22/19 @ 03:52 by Aashish Martinez MD) Acute gastroenteritis (Acute) Sepsis (Acute) Abdominal pain, vomiting, and diarrhea (Acute) Hypokalemia (Acute) History of ulcerative colitis (Acute) Patient is a 58-year-old lady with past medical history significant for CML currently on imatinib who presented with persistent nausea vomiting and diarrhea. Patient was found to have significant electrolyte abnormalities including hypokalemia hypophosphatemia as well as hypomagnesemia admitted to regular nursing floor for further management 1. Acute gastroenteritis suspected to be viral in etiology. CT of the abdomen and pelvis obtained on admission demonstrated Findings suspicious of colitis involving the transverse colon and descending colon admitted to regular nursing floor for symptomatic management patient had apparently been seen by compliance reviewer in [facility] and plans for patient to return in 2 weeks for possible colonoscopy. 2. Hypokalemia secondary to losses from above repleted per protocol 3. Hypophosphatemia repleted per protocol 4. Hypomagnesemia repleted per protocol 5. Chronic hypoxic respiratory failure secondary to COPD patient is on baseline home O2 6. Hypertension-blood pressure controlled, home medications continued with dose adjustment as needed 7. Chronic myeloid leukemia patient is on Gleevec; currently stable followed by oncology as outpatient 8. Depression with anxiety. Patient is on SSRI 9. History of of pulmonary embolism. Patient was treated with Coumadin for 6 months. 10. Ulcerative colitis by history: Remains in remission 11. Obesity with BMI of 32: Weight loss advised 12. DVT prophylaxis SC Lovenox Active Medications Acetaminophen (Tylenol) 650 mg PO Q6H PRN PRN PRN Reason: Non-cardiac pain (mod-severe) Last Admin: 03/13/19 21:03 Dose: 650 mg Albuterol Sulfate (Ventolin Aerosols) 2.5 mg INHALATION Q4H PRN PRN PRN Reason: SOB &/OR WHEEZING Last Admin: 03/13/19 19:22 Dose: 2.5 mg Albuterol/Ipratropium (Duoneb) 3 ml INHALATION Q4H.RT [facility] Last Admin: 03/14/19 06:45 Dose: 3 ml Alprazolam (Xanax) 0.5 mg PO Q6H PRN PRN PRN Reason: ANXIETY Last Admin: 03/14/19 07:10 Dose: 0.5 mg Buspirone HCl (Buspar) 20 mg PO TID [facility] Last Admin: 03/14/19 07:03 Dose: 20 mg Cyclobenzaprine HCl (Cyclobenzaprine Hcl) 5 mg PO TID PRN PRN PRN Reason: SPASMS Diltiazem HCl (Cardizem Cd) 240 mg PO DAILY [facility] Last Admin: 03/13/19 20:16 Dose: 240 mg Enoxaparin Sodium (Lovenox) 40 mg SC DAILY@1000 [facility] Fluticasone Propionate (Flonase Nasal Alexander) 1 spray NASAL BID [facility] Last Admin: 03/13/19 21:04 Dose: 1 spray Sodium Chloride () 1,000 mls @ 100 mls/hr IV .Q10H [facility] Last Admin: 03/14/19 04:41 Dose: 100 mls/hr Calcium Gluconate 2 gm/ (Dextrose) 120 mls @ 60 mls/hr IV X1 ONE Stop: 03/14/19 08:52 Magnesium Sulfate () 4 gm in 100 mls @ 25 mls/hr IV X1 ONE Stop: 03/14/19 10:52 Potassium Phosphate 30 mm/ (Sodium Chloride) 260 mls @ 42 mls/hr IV X1 ONE Stop: 03/14/19 15:11 Imatinib Mesylate (Gleevec) 400 mg PO DAILY [facility] Loratadine (Claritin) 10 mg PO DAILY PRN PRN PRN Reason: nasal/sinus congestion Melatonin (Melatonin) 3 mg PO QHS PRN PRN PRN Reason: INSOMNIA Metoclopramide HCl (Reglan) 5 mg IV Q8H PRN PRN PRN Reason: nausea Last Admin: 03/13/19 19:41 Dose: 5 mg Oxycodone HCl (Oxyir) 5 mg PO Q4H PRN PRN PRN Reason: PAIN Pantoprazole Sodium (Protonix) 40 mg PO DAILY [facility] Prednisone () 10 mg PO DAILYCM [facility] Sertraline HCl (Zoloft) 75 mg PO DAILY [facility] Clinical Impression(s) from Imaging Studies Acute Abdomen Series 03/13/19 12:12 IMPRESSION: Findings suspicious of colitis involving the transverse colon and descending colon. Small left pleural effusion with left basilar infiltrate. Electronically Signed: Presley Charles, at 14:04 EDT , Service support , Code Visit Inpatient E&M: 21755 Subs Hosp L3
[2019-03-14] MEDS: Magnesium Sulfate 4gm/100mL 4 GM/100 ML IV.SOLN. IV (08:15)
[2019-03-14] MEDS: predniSONE 10 MG Tablet PO (08:22)
[2019-03-14] MEDS: Sertraline 50 MG Tablet 75 MG PO (10:27)
[2019-03-14] MEDS: Enoxaparin 40 MG/0.4 ML Syringe SC (10:28)
[2019-03-14] MEDS: dilTIAZem CD 240 MG Capsule PO (10:28)
[2019-03-14] MEDS: Pantoprazole Sodium 40 MG Tablet PO (10:28)
[2019-03-14] MEDS: Fluticasone 0.05% 1 SPRAY NASAL.SRY NASAL (10:29)
--- NOTE | 2019-03-14 14:04 | CASEMGMT ---
ESTEPHANIA JUNIOR updated by therapy that patient would benefit from SNF. ESTEPHANIA JUNIOR in to speak with patient regarding discharge plans. Patient states that she will think about going to a SNF. ESTEPHANIA JUNIOR inquired regarding [facility], patient states that [facility] has not been in contact with patient since last admission. Patient states she has been working with PCP on [facility], Miguel. ESTEPHANIA JUNIOR called [facility] to inquire if patient had been seen by them since patient last discharge of 02/24/19. [facility] reviewed patient's chart and confirmed that they did receive discharge orders and paperwork for resumption of care on 02/24/19 but it did appear that they have not been out to see patient. [facility] stated that they have also had trouble keeping aides on staff. [facility] apologized and will be investigating the matter. ESTEPHANIA JUNIOR called [facility] to see if referral had been initiated from PCP office. Miguel said they will need a referral. ESTEPHANIA JUNIOR sent referral to Miguel and updated patient.
--- NOTE | 2019-03-14 14:43 | CASEMGMT ---
Social Work Note REGINALD received call from Chaya at [facility] stating pt is active with [facility]. REGINALD updated Chaya on pt's admission and that pt will likely be at [facility] throughout the weekend. REGINALD informed Chaya that the discharge plan is home vs. SNF as PT/OT mentioned that pt could benefit from SNF. REGINALD updated Chaya that discharge plans on still TBD for pt. Chaya provided phone number [phone] and fax number [phone]. REGINALD updated that pt will think about going to SNF. REGINALD insulation cupola operator CM will be able to follow up with pt tomorrow as time allows to confirm plans. Plan: Home vs. SNF Irina Lyles QUALITY CONTROL CLERK, MATHEMATICIAN
[2019-03-14 16:10] LABS: Magnesium 2.1 mg/dL (1.6-2.6); Phosphorus 3.9 mg/dL (2.5-4.9)
[2019-03-14] MEDS: oxyCODONE 5 MG Tablet PO (22:12)
[2019-03-15] VITALS (18 sets, daily range): BP systolic 122–135; BP diastolic 76–80; PULSE 110–128; RESP 16–26; TEMP 36.5–37.5; O2SAT 93–96
[2019-03-15] MEDS: Ipratropium/Albuterol Sulfate 3 ML AMPUL.NEB INHALATION ×5 (02:05→22:56)
[2019-03-15] MEDS: oxyCODONE 5 MG Tablet PO (03:04)
[2019-03-15] MEDS: 0.9% Normal Saline 1,000 ML 100 ML IV ×2 (05:45→15:20)
[2019-03-15] MEDS: busPIRone 5 MG Tablet 20 MG PO ×3 (05:45→21:30)
[2019-03-15] MEDS: cycloBENZAPRine HCl 5 MG TABLET PO (06:01)
--- NOTE | 2019-03-15 07:23 | PN_ITS ---
Patient Problems: Active and Suspected Problems (Last Reviewed 02/22/19 @ 03:52 by Aashish Martinez MD) Abdominal pain, vomiting, and diarrhea (Acute) Hypokalemia (Acute) History of ulcerative colitis (Acute) Subjective: Patient seen frequency of her diarrhea is subsiding. Potassium still remains significantly low at 3.0 repletion initiated. Patient complains of wheezing this a.m. did initiate breathing treatment Objective: GENERAL: Appears ill looking HEENT: Atraumatic; EYES; Anicteric, Normal Conjunctiva NECK; supple, normal thyroid, RESPIRATORY: Diminished to auscultation CARDIOVASCULAR: Regular S1 S2, GI: Distended and tympanitic to percussion : No Renal angle tenderness; EXTREMITIES: No edema, no clubbing, MUSCULOSKELETAL: No Joint Tenderness; NEURO: Awake; no lateralizing signs. SKIN: No Rash PSYCH; flat affect Vitals/I&O's: Vital Signs Temp Pulse Resp BP Pulse Ox 97.7 F L 117 H 22 H 124/80 H 94 03/15/19 05:48 03/15/19 05:59 03/15/19 05:48 03/15/19 05:48 03/15/19 05:48 Oxygen Flow Rate (L/min) 4 Oxygen Delivery Method Nasal Cannula Weight: 78.744 kg Body Mass Index (BMI) 31.7 Intake and Output for Last 24 Hours 03/13/19 03/14/19 03/15/19 23:59 23:59 23:59 Intake Total 1907 / 1907 1979 / 1979 1357 / 1357 Output Total 200 / 200 1450 / 1450 700 / 700 Balance 1707 / 1707 530 / 530 657 / 657 Laboratory Results 03/14/19 15:45: Phosphorus 3.9, Magnesium 2.1 03/15/19 01:02: Potassium 3.0 L Current Medications Acetaminophen (Tylenol) 650 mg PO Q6H PRN PRN PRN Reason: Non-cardiac pain (mod-severe) Last Admin: 03/13/19 21:03 Dose: 650 mg Albuterol Sulfate (Ventolin Aerosols) 2.5 mg INHALATION Q4H PRN PRN PRN Reason: SOB &/OR WHEEZING Last Admin: 03/13/19 19:22 Dose: 2.5 mg Albuterol/Ipratropium (Duoneb) 3 ml INHALATION Q4H.RT [facility] Last Admin: 03/15/19 02:05 Dose: 3 ml Alprazolam (Xanax) 0.5 mg PO Q6H PRN PRN PRN Reason: ANXIETY Last Admin: 03/14/19 17:10 Dose: 0.5 mg Buspirone HCl (Buspar) 20 mg PO TID [facility] Last Admin: 03/15/19 05:45 Dose: 20 mg Cyclobenzaprine HCl (Cyclobenzaprine Hcl) 5 mg PO TID PRN PRN PRN Reason: SPASMS Last Admin: 03/15/19 06:01 Dose: 5 mg Diltiazem HCl (Cardizem Cd) 240 mg PO DAILY [facility] Last Admin: 03/14/19 10:28 Dose: 240 mg Enoxaparin Sodium (Lovenox) 40 mg SC DAILY@1000 [facility] Last Admin: 03/14/19 10:28 Dose: 40 mg Fluticasone Propionate (Flonase Nasal Grulla) 1 spray NASAL BID [facility] Last Admin: 03/14/19 22:12 Dose: Not Given Sodium Chloride () 1,000 mls @ 100 mls/hr IV .Q10H [facility] Last Admin: 03/15/19 05:45 Dose: 100 mls/hr Potassium Chloride 10 meq/ N/A 100 mls @ 100 mls/hr IV Q1H [facility] Stop: 03/15/19 11:29 Imatinib Mesylate (Gleevec) 400 mg PO DAILY@1300 [facility] Last Admin: 03/14/19 12:44 Dose: 400 mg Loratadine (Claritin) 10 mg PO DAILY PRN PRN PRN Reason: nasal/sinus congestion Melatonin (Melatonin) 3 mg PO QHS PRN PRN PRN Reason: INSOMNIA Metoclopramide HCl (Reglan) 5 mg IV Q8H PRN PRN PRN Reason: nausea Last Admin: 03/13/19 19:41 Dose: 5 mg Oxycodone HCl (Oxyir) 5 mg PO Q4H PRN PRN PRN Reason: PAIN Last Admin: 03/15/19 03:04 Dose: 5 mg Pantoprazole Sodium (Protonix) 40 mg PO DAILY [facility] Last Admin: 03/14/19 10:28 Dose: 40 mg Potassium Chloride (K[facility]Dur) [facility] () [facility] Last Admin: 03/14/19 08:22 Dose: 10 mg Sertraline HCl (Zoloft) 75 mg PO DAILY [facility] Last Admin: 03/14/19 10:27 Dose: 75 mg Medical Necessity - Tobacco Use Smoking Status: Former smoker Tobacco Use: Cigarettes Assessment/Plan All Active Problems (Last Reviewed 02/22/19 @ 03:52 by Aashish Martinez MD) Acute gastroenteritis (Acute) Sepsis (Acute) Abdominal pain, vomiting, and diarrhea (Acute) Hypokalemia (Acute) History of ulcerative colitis (Acute) Patient is a 58-year-old lady with past medical history significant for CML currently on imatinib who presented with persistent nausea vomiting and diarrhea. Patient was found to have significant electrolyte abnormalities including hypokalemia hypophosphatemia as well as hypomagnesemia admitted to regular nursing floor for further management 1. Acute gastroenteritis suspected to be viral in etiology. CT of the abdomen and pelvis obtained on admission demonstrated Findings suspicious of colitis involving the transverse colon and descending colon admitted to regular nursing floor for symptomatic management patient had apparently been seen by clinical specialty rep in [facility] and plans for patient to return in 2 weeks for possible colonoscopy. ~03/15/2019 frequency of patient diarrhea is subsiding. Did advance patient diet to regular diet 2. Hypokalemia secondary to losses from above repleted per protocol ~03/15/2019 potassium 3.0 repletion continues 3. Hypophosphatemia repleted per protocol 4. Hypomagnesemia repleted per protocol 5. Chronic hypoxic respiratory failure secondary to COPD patient is on baseline home O2 6. Hypertension-blood pressure controlled, home medications continued with dose adjustment as needed 7. Chronic myeloid leukemia patient is on Gleevec; currently stable followed by oncology as outpatient 8. Depression with anxiety. Patient is on SSRI 9. History of of pulmonary embolism. Patient was treated with Coumadin for 6 months. 10. Ulcerative colitis by history: Remains in remission 11. Obesity with BMI of 32: Weight loss advised 12. DVT prophylaxis SC Lovenox Active Medications Acetaminophen (Tylenol) 650 mg PO Q6H PRN PRN PRN Reason: Non-cardiac pain (mod-severe) Last Admin: 03/13/19 21:03 Dose: 650 mg Albuterol Sulfate (Ventolin Aerosols) 2.5 mg INHALATION Q4H PRN PRN PRN Reason: SOB &/OR WHEEZING Last Admin: 03/13/19 19:22 Dose: 2.5 mg Albuterol/Ipratropium (Duoneb) 3 ml INHALATION Q4H.RT [facility] Last Admin: 03/14/19 06:45 Dose: 3 ml Alprazolam (Xanax) 0.5 mg PO Q6H PRN PRN PRN Reason: ANXIETY Last Admin: 03/14/19 07:10 Dose: 0.5 mg Buspirone HCl (Buspar) 20 mg PO TID [facility] Last Admin: 03/14/19 07:03 Dose: 20 mg Cyclobenzaprine HCl (Cyclobenzaprine Hcl) 5 mg PO TID PRN PRN PRN Reason: SPASMS Diltiazem HCl (Cardizem Cd) 240 mg PO DAILY [facility] Last Admin: 03/13/19 20:16 Dose: 240 mg Enoxaparin Sodium (Lovenox) 40 mg SC DAILY@1000 [facility] Fluticasone Propionate (Flonase Nasal Grulla) 1 spray NASAL BID [facility] Last Admin: 03/13/19 21:04 Dose: 1 spray Sodium Chloride () 1,000 mls @ 100 mls/hr IV .Q10H [facility] Last Admin: 03/14/19 04:41 Dose: 100 mls/hr Calcium Gluconate 2 gm/ (Dextrose) 120 mls @ 60 mls/hr IV X1 ONE Stop: 03/14/19 08:52 Magnesium Sulfate () 4 gm in 100 mls @ 25 mls/hr IV X1 ONE Stop: 03/14/19 10:52 Potassium Phosphate 30 mm/ (Sodium Chloride) 260 mls @ 42 mls/hr IV X1 ONE Stop: 03/14/19 15:11 Imatinib Mesylate (Gleevec) 400 mg PO DAILY [facility] Loratadine (Claritin) 10 mg PO DAILY PRN PRN PRN Reason: nasal/sinus congestion Melatonin (Melatonin) 3 mg PO QHS PRN PRN PRN Reason: INSOMNIA Metoclopramide HCl (Reglan) 5 mg IV Q8H PRN PRN PRN Reason: nausea Last Admin: 03/13/19 19:41 Dose: 5 mg Oxycodone HCl (Oxyir) 5 mg PO Q4H PRN PRN PRN Reason: PAIN Pantoprazole Sodium (Protonix) 40 mg PO DAILY [facility] Prednisone () 10 mg PO DAILYCM [facility] Sertraline HCl (Zoloft) 75 mg PO DAILY [facility] Clinical Impression(s) from Imaging Studies Acute Abdomen Series 03/13/19 12:12 IMPRESSION: Findings suspicious of colitis involving the transverse colon and descending colon. Small left pleural effusion with left basilar infiltrate. Electronically Signed: Presley Charles, at 14:04 EDT , Service support , Code Visit Inpatient E&M: 15695 Subs Hosp L2
[2019-03-15 09:10] LABS: Absolute Lymphocyte Count 1.54 X10^3/ul (0.83-4.51); Absolute Neutrophil Count 7.9 X10^3/uL (2.0-7.7); Basophil# 0.01 X10^3/uL; Basophil% 0.1 % (0-1); Eosinophil# 0.05 X10^3/uL; Eosinophils% 0.5 % (0-5); Lymphocyte # 1.54 X10^3/ul (4.0); Lymphocyte % 14.5 % (19-41); Mean Corp Hgb Conc 33.3 g/gl (32-36); Mean Corpuscular Hgb 31.7 pg (27.0-32.0); Mean Corpuscular Volume 95.2 fL (81-99); Mean Platelet Vol. 8.4 fl (6.2-12.0); Monocyte# 1.02 X10^3/uL; Monocyte% 9.6 % (0-10); Neutrophil # 7.88 X10^3/uL (2.7-7.7); Neutrophil % 74.5 % (47-70); Platelet Count 184 K/mm3 (150-450); RBC Distribution Width CV 14.3 % (11.6-14.6); RBC Distribution Width SD 49.9 fl (35.1-43.9); Red Blood Count 3.15 M/mm3 (4.2-5.4); White Blood Count 10.6 K/mm3 (4.4-11.0)
[2019-03-15 09:16] LABS: Differential Indicated SCAN CRITERIA MET; POSITIVE COUNT NO; POSITIVE DIFFERENTIAL NO; POSITIVE MORPHOLOGY YES
[2019-03-15 09:37] LABS: Anion Gap 5 (5-15); BUN 7 mg/dL (7-18); BUN/Creat Ratio 11.7 RATIO (10-20); Calcium,Total 6.9 mg/dL (8.5-10.1); Chloride 111 mmol/L (98-107); EST Glomerular Filtration Rate 111 mL/min (>60); Est Glom Filt Rate - Afr Amer 134 mL/min (>60); Glucose 115 mg/dL (74-106); Magnesium 1.8 mg/dL (1.6-2.6); Potassium 3.5 mmol/L (3.5-5.1); Sodium Level 141 mmol/L (136-145)
[2019-03-15 09:52] LABS: Differential Comment SCANNED
[2019-03-15] MEDS: dilTIAZem CD 240 MG Capsule PO (10:24)
[2019-03-15] MEDS: Fluticasone 0.05% 1 SPRAY NASAL.SRY NASAL (10:24)
[2019-03-15] MEDS: Enoxaparin 40 MG/0.4 ML Syringe SC (10:24)
[2019-03-15] MEDS: Sertraline 50 MG Tablet 75 MG PO (10:24)
[2019-03-15] MEDS: Pantoprazole Sodium 40 MG Tablet PO (10:25)
[2019-03-15] MEDS: predniSONE 10 MG Tablet PO (10:28)
--- NOTE | 2019-03-15 11:34 | CASEMGMT ---
Social Work Note SW met with pt to confirm discharge plans. Pt is alert and orientated x3. Pt states that she is still thinking about going to SNF but hasn't confirmed if she wishes to go to SNF or not. SW did provide pt with list of area SNF that take her insurance and encouraged pt to review list and have different options for SNF. SW informed pt that this worker will follow up with pt on Sunday in regards to SNF options. Pt states understanding. Plan: TBD. Pt thinking about going to SNF Irina Lyles CAPTURE MANAGER, CRITICAL CARE PHYSICIAN ASSISTANT
[2019-03-15] MEDS: Metoclopramide 10 MG/2 ML Vial 5 MG IV (16:05)
--- NOTE | 2019-03-15 16:07 | EKG12_ITS ---
Test Reason : CP Blood Pressure : / mmHG Vent. Rate : 119 BPM Atrial Rate : 119 BPM P-R Int : 138 ms QRS Dur : 080 ms QT Int : 340 ms P-R-T Axes : 040 073 032 degrees QTc Int : 478 ms Sinus tachycardia Low voltage QRS Borderline ECG Confirmed by RONAL MURO, DINH ([id number]), medical transcription editor ANGE TOUSSAINT ([id number]) on 03/19/2019 11:39:49 AM Referred By: NETTE Confirmed By:DIHN VILLEDA MD
[2019-03-15] MEDS: ALPRAZolam 0.5 MG Tablet PO (19:39)
[2019-03-16] VITALS (15 sets, daily range): BP systolic 131–158; BP diastolic 77–91; PULSE 113–129; RESP 12–24; TEMP 36.6–37.7; O2SAT 95–96
[2019-03-16] MEDS: 0.9% Normal Saline 1,000 ML 100 ML IV ×3 (01:21→21:12)
[2019-03-16] MEDS: Ipratropium/Albuterol Sulfate 3 ML AMPUL.NEB INHALATION ×6 (03:08→23:50)
[2019-03-16] MEDS: oxyCODONE 5 MG Tablet PO (03:50)
[2019-03-16] MEDS: Metoclopramide 10 MG/2 ML Vial 5 MG IV (03:50)
[2019-03-16 05:50] LABS: Absolute Lymphocyte Count 1.49 X10^3/ul (0.83-4.51); Absolute Neutrophil Count 6.6 X10^3/uL (2.0-7.7); Basophil# 0.01 X10^3/uL; Basophil% 0.1 % (0-1); Eosinophils% 1.1 % (0-5); Hematocrit 29.8 % (37-47); Hemoglobin 9.7 g/dl (12.0-15.0); Lymphocyte # 1.49 X10^3/ul (4.0); Lymphocyte % 16.6 % (19-41); Mean Corp Hgb Conc 32.6 g/gl (32-36); Mean Corpuscular Hgb 31.6 pg (27.0-32.0); Mean Corpuscular Volume 97.1 fL (81-99); Mean Platelet Vol. 8.4 fl (6.2-12.0); Monocyte# 0.79 X10^3/uL; Monocyte% 8.8 % (0-10); Neutrophil # 6.55 X10^3/uL (2.7-7.7); Neutrophil % 72.7 % (47-70); Platelet Count 173 K/mm3 (150-450); RBC Distribution Width CV 14.4 % (11.6-14.6); RBC Distribution Width SD 51.3 fl (35.1-43.9); Red Blood Count 3.07 M/mm3 (4.2-5.4)
[2019-03-16 05:51] LABS: Differential Indicated SCAN CRITERIA MET; POSITIVE COUNT NO; POSITIVE DIFFERENTIAL NO; POSITIVE MORPHOLOGY YES
[2019-03-16 05:54] LABS: Anion Gap 6 (5-15); BUN 7 mg/dL (7-18); Calcium,Total 6.9 mg/dL (8.5-10.1); Chloride 112 mmol/L (98-107); Creatinine, Serum 0.54 mg/dL (0.55-1.02); EST Glomerular Filtration Rate 125 mL/min (>60); Est Glom Filt Rate - Afr Amer 151 mL/min (>60); Glucose 96 mg/dL (74-106); Magnesium 1.8 mg/dL (1.6-2.6); Potassium 4.1 mmol/L (3.5-5.1); Sodium Level 144 mmol/L (136-145)
[2019-03-16] MEDS: busPIRone 5 MG Tablet 20 MG PO ×3 (06:15→21:29)
--- NOTE | 2019-03-16 08:17 | PN_ITS ---
Patient Problems: Active and Suspected Problems (Last Reviewed 02/22/19 @ 03:52 by Aashish Martinez MD) Abdominal pain, vomiting, and diarrhea (Acute) Hypokalemia (Acute) History of ulcerative colitis (Acute) Subjective: Patient seen complains of not feeling any better than when she first came in. Her electrolyte abnormalities present on admission has since resolved. She did express the desire to be transferred to a senior care facility. She had apparently informed case management on 03/14/2019. Objective: GENERAL: Appears ill looking HEENT: Atraumatic; EYES; Anicteric, Normal Conjunctiva NECK; supple, normal thyroid, RESPIRATORY: Diminished to auscultation CARDIOVASCULAR: Regular S1 S2, GI: Distended and tympanitic to percussion : No Renal angle tenderness; EXTREMITIES: No edema, no clubbing, MUSCULOSKELETAL: No Joint Tenderness; NEURO: Awake; no lateralizing signs. SKIN: No Rash PSYCH; flat affect Vitals/I&O's: Vital Signs Temp Pulse Resp BP Pulse Ox 97.9 F 119 H 24 H 158/91 H 96 03/16/19 03:45 03/16/19 07:05 03/16/19 06:59 03/16/19 03:45 03/16/19 06:59 Oxygen Flow Rate (L/min) 4 Oxygen Delivery Method Nasal Cannula Weight: 78.744 kg Body Mass Index (BMI) 31.7 Intake and Output for Last 24 Hours 03/14/19 03/15/19 03/16/19 23:59 23:59 23:59 Intake Total 1979 / 1979 2551 / 2551 1349 / 1349 Output Total 1450 / 1450 1000 / 1000 600 / 600 Balance 530 / 530 1551 / 1551 749 / 749 Laboratory Results 03/15/19 08:51: WBC 10.6, RBC 3.15 L, Hgb 10.0 L, Hct 30.0 L, MCV 95.2, MCH 31.7, MCHC 33.3, RDW 14.3, RDW Differential 49.9 H, Plt Count 184, MPV 8.4, Immature Gran % (Auto) 0.800, Neut % (Auto) 74.5 H, Lymph % (Auto) 14.5 L, [place] % (Auto) 9.6, Eos % (Auto) 0.5, Baso % (Auto) 0.1, Absolute Neuts (auto) 7.9 H, Absolute Lymphs (auto) 1.54, Total Counted Not Reportable, Differential Comment SCANNED 03/15/19 08:51: Sodium 141, Potassium 3.5, Chloride 111 H, Carbon Dioxide 25.0, Anion Gap 5, BUN 7, Creatinine 0.60, Estim Creat Clear Calc 82.80, Est GFR (MDRD) Af Amer 134, Est GFR (MDRD) Non-Af 111, BUN/Creatinine Ratio 11.7, Glucose 115 H, Calcium 6.9 L, Magnesium 1.8 03/16/19 05:18: Sodium 144, Potassium 4.1, Chloride 112 H, Carbon Dioxide 26.0, Anion Gap 6, BUN 7, Creatinine 0.54 L, Estim Creat Clear Calc 92.00, Est GFR (MDRD) Af Amer 151, Est GFR (MDRD) Non-Af 125, BUN/Creatinine Ratio 13.0, Glucose 96, Calcium 6.9 L, Magnesium 1.8 03/16/19 05:18: WBC 9.0, RBC 3.07 L, Hgb 9.7 L, Hct 29.8 L, MCV 97.1, MCH 31.6, MCHC 32.6, RDW 14.4, RDW Differential 51.3 H, Plt Count 173, MPV 8.4, Immature Gran % (Auto) 0.700, Neut % (Auto) 72.7 H, Lymph % (Auto) 16.6 L, [place] % (Auto) 8.8, Eos % (Auto) 1.1, Baso % (Auto) 0.1, Absolute Neuts (auto) 6.6, Absolute Lymphs (auto) 1.49, Total Counted Not Reportable, Differential Comment Current Medications Acetaminophen (Tylenol) 650 mg PO Q6H PRN PRN PRN Reason: Non-cardiac pain (mod-severe) Last Admin: 03/13/19 21:03 Dose: 650 mg Albuterol Sulfate (Ventolin Aerosols) 2.5 mg INHALATION Q4H PRN PRN PRN Reason: SOB &/OR WHEEZING Last Admin: 03/13/19 19:22 Dose: 2.5 mg Albuterol/Ipratropium (Duoneb) 3 ml INHALATION Q4H.RT [facility] Last Admin: 03/16/19 06:59 Dose: 3 ml Alprazolam (Xanax) 0.5 mg PO Q6H PRN PRN PRN Reason: ANXIETY Last Admin: 03/15/19 19:39 Dose: 0.5 mg Buspirone HCl (Buspar) 20 mg PO TID [facility] Last Admin: 03/16/19 06:15 Dose: 20 mg Cyclobenzaprine HCl (Cyclobenzaprine Hcl) 5 mg PO TID PRN PRN PRN Reason: SPASMS Last Admin: 03/15/19 06:01 Dose: 5 mg Diltiazem HCl (Cardizem Cd) 240 mg PO DAILY [facility] Last Admin: 03/15/19 10:24 Dose: 240 mg Enoxaparin Sodium (Lovenox) 40 mg SC DAILY@1000 [facility] Last Admin: 03/15/19 10:24 Dose: 40 mg Fluticasone Propionate (Flonase Nasal [place]) 1 spray NASAL BID [facility] Last Admin: 03/15/19 21:31 Dose: Not Given Sodium Chloride () 1,000 mls @ 100 mls/hr IV .Q10H [facility] Last Admin: 03/16/19 01:21 Dose: 100 mls/hr Imatinib Mesylate (Gleevec) 400 mg PO DAILY@1300 [facility] Last Admin: 03/15/19 15:18 Dose: 400 mg Loratadine (Claritin) 10 mg PO DAILY PRN PRN PRN Reason: nasal/sinus congestion Melatonin (Melatonin) 3 mg PO QHS PRN PRN PRN Reason: INSOMNIA Metoclopramide HCl (Reglan) 5 mg IV Q8H PRN PRN PRN Reason: nausea Last Admin: 03/16/19 03:50 Dose: 5 mg Oxycodone HCl (Oxyir) 5 mg PO Q4H PRN PRN PRN Reason: PAIN Last Admin: 03/16/19 03:50 Dose: 5 mg Pantoprazole Sodium (Protonix) 40 mg PO DAILY [facility] Last Admin: 03/15/19 10:25 Dose: 40 mg [facility]assium [facility] Last Admin: 03/15/19 18:08 Dose: 20 meq [facility] () [facility] Last Admin: 03/15/19 10:28 Dose: 10 mg Sertraline HCl (Zoloft) 75 mg PO DAILY [facility] Last Admin: 03/15/19 10:24 Dose: 75 mg Medical Necessity - Tobacco Use Smoking Status: Former smoker Tobacco Use: Cigarettes Assessment/Plan All Active Problems (Last Reviewed 02/22/19 @ 03:52 by Aashish Martinez MD) Acute gastroenteritis (Acute) Sepsis (Acute) Abdominal pain, vomiting, and diarrhea (Acute) Hypokalemia (Acute) History of ulcerative colitis (Acute) Patient is a 58-year-old lady with past medical history significant for CML currently on imatinib who presented with persistent nausea vomiting and diarrhea. Patient was found to have significant electrolyte abnormalities including hypokalemia hypophosphatemia as well as hypomagnesemia admitted to regular nursing floor for further management 1. Acute gastroenteritis suspected to be viral in etiology. CT of the abdomen and pelvis obtained on admission demonstrated Findings suspicious of colitis involving the transverse colon and descending colon admitted to regular nursing floor for symptomatic management patient had apparently been seen by lap regulator in [facility] and plans for patient to return in 2 weeks for possible colonoscopy. ~03/15/2019 frequency of patient diarrhea is subsiding. Did advance patient diet to regular diet 2. Hypokalemia secondary to losses from above repleted per protocol ~03/15/2019 potassium 3.0 repletion continues ~919. Hypokalemia resolved 3. Hypophosphatemia repleted per protocol 4. Hypomagnesemia repleted per protocol 5. Chronic hypoxic respiratory failure secondary to COPD patient is on baseline home O2 6. Hypertension-blood pressure controlled, home medications continued with dose adjustment as needed 7. Chronic myeloid leukemia patient is on Gleevec; currently stable followed by oncology as outpatient 8. Depression with anxiety. Patient is on SSRI 9. History of of pulmonary embolism. Patient was treated with Coumadin for 6 months. 10. Ulcerative colitis by history: Remains in remission 11. Obesity with BMI of 32: Weight loss advised 12. DVT prophylaxis SC Lovenox 13. Physical deconditioning requested for PT OT eval and renal social worker to assist with disposition Disposition to senior care facility possibly on 03/17/2019 pending insurance approval Code Visit Inpatient E&M: 16446 Subs Hosp L2
[2019-03-16] MEDS: dilTIAZem CD 240 MG Capsule PO (08:47)
[2019-03-16] MEDS: predniSONE 10 MG Tablet PO (08:47)
[2019-03-16] MEDS: Sertraline 50 MG Tablet 75 MG PO (08:48)
[2019-03-16] MEDS: Enoxaparin 40 MG/0.4 ML Syringe SC (08:48)
[2019-03-16] MEDS: Pantoprazole Sodium 40 MG Tablet PO (08:48)
[2019-03-16] MEDS: ALPRAZolam 0.5 MG Tablet PO ×2 (09:02→18:03)
[2019-03-16] MEDS: cycloBENZAPRine HCl 5 MG TABLET PO (21:13)
[2019-03-17] VITALS (10 sets, daily range): BP systolic 119–139; BP diastolic 73–95; PULSE 114–131; RESP 20–24; TEMP 37–37.7; O2SAT 92–96
[2019-03-17] MEDS: ALPRAZolam 0.5 MG Tablet PO ×2 (02:18→19:10)
[2019-03-17] MEDS: Ipratropium/Albuterol Sulfate 3 ML AMPUL.NEB INHALATION ×4 (02:23→14:37)
[2019-03-17] MEDS: oxyCODONE 5 MG Tablet PO (04:19)
[2019-03-17] MEDS: busPIRone 5 MG Tablet 20 MG PO ×2 (04:21→13:47)
[2019-03-17 05:51] LABS: Absolute Lymphocyte Count 1.56 X10^3/ul (0.83-4.51); Absolute Neutrophil Count 6.9 X10^3/uL (2.0-7.7); Basophil# 0.02 X10^3/uL; Basophil% 0.2 % (0-1); Eosinophil# 0.05 X10^3/uL; Eosinophils% 0.5 % (0-5); Hematocrit 30.6 % (37-47); Hemoglobin 9.7 g/dl (12.0-15.0); Lymphocyte # 1.56 X10^3/ul (4.0); Lymphocyte % 16.3 % (19-41); Mean Corp Hgb Conc 31.7 g/gl (32-36); Mean Corpuscular Hgb 30.9 pg (27.0-32.0); Mean Corpuscular Volume 97.5 fL (81-99); Mean Platelet Vol. 8.7 fl (6.2-12.0); Monocyte# 0.97 X10^3/uL; Monocyte% 10.1 % (0-10); Neutrophil # 6.87 X10^3/uL (2.7-7.7); Platelet Count 186 K/mm3 (150-450); RBC Distribution Width CV 14.1 % (11.6-14.6); Red Blood Count 3.14 M/mm3 (4.2-5.4); White Blood Count 9.6 K/mm3 (4.4-11.0)
[2019-03-17 05:53] LABS: POSITIVE COUNT NO; POSITIVE DIFFERENTIAL NO; POSITIVE MORPHOLOGY NO
[2019-03-17 06:10] LABS: Anion Gap 7 (5-15); BUN 7 mg/dL (7-18); BUN/Creat Ratio 10.2 RATIO (10-20); Calcium,Total 7.2 mg/dL (8.5-10.1); Chloride 109 mmol/L (98-107); Creatinine, Serum 0.68 mg/dL (0.55-1.02); EST Glomerular Filtration Rate 95 mL/min (>60); Est Glom Filt Rate - Afr Amer 114 mL/min (>60); Estimated Creatinine Clearance 73.06 ml/min; Glucose 98 mg/dL (74-106); Potassium 3.8 mmol/L (3.5-5.1); Sodium Level 142 mmol/L (136-145)
[2019-03-17] MEDS: Enoxaparin 40 MG/0.4 ML Syringe SC (07:53)
[2019-03-17] MEDS: Pantoprazole Sodium 40 MG Tablet PO (07:53)
[2019-03-17] MEDS: Fluticasone 0.05% 1 SPRAY NASAL.SRY NASAL (07:53)
[2019-03-17] MEDS: Sertraline 50 MG Tablet 75 MG PO (07:53)
[2019-03-17] MEDS: predniSONE 10 MG Tablet PO (07:53)
[2019-03-17] MEDS: dilTIAZem CD 240 MG Capsule PO (07:53)
[2019-03-17] MEDS: 0.9% Normal Saline 1,000 ML 100 ML IV (09:47)
--- NOTE | 2019-03-17 10:30 | CASEMGMT ---
Addendum entered by Irina Lyles 03/17/19 13:07: SW placed a call to [facility] and spoke with Gema in admissions. [facility]. Gema states she and her staff are now getting ready to meet to discuss referral and will give this worker a call back soon. Original Note: Addendum entered by Irina Lyles 03/17/19 11:50: SW still waiting for PT from today but did fax referral to [facility]. Original Note: Social Work Note SW met with pt to confirm discharge plans. Pt is alert and orientated x3. Pt states she reviewed list of SNF and would like [facility]. SW explained that she needs to work with PT/OT today as she refused to work with them over the weekend and if she wants her insurance to pay for SNF she needs to work with PT/OT. SW explained referral process and that pt will need pre-cert. Pt states understanding. SW to fax referral to [facility] once pt works with PT/OT today Plan: [facility] pending acceptance and pre-cert Irina Lyles METAL FENCE ERECTOR, CABIN AGENT
--- NOTE | 2019-03-17 11:48 | PCM.PN.HOSP ---
Patient Problems: Active and Suspected Problems (Last Reviewed 02/22/19 @ 03:52 by Aashish Martinez MD) Abdominal pain, vomiting, and diarrhea (Acute) Hypokalemia (Acute) History of ulcerative colitis (Acute) Subjective: States she does not feel any better, though she is tolerating a diet and her diarrhea has subsided. No nausea or vomiting at the moment Vitals/I&O's: Vital Signs Temp Pulse Resp BP Pulse Ox 99.1 F 118 H 22 H 119/78 94 03/17/19 07:48 03/17/19 11:13 03/17/19 11:13 03/17/19 07:48 03/17/19 07:48 Oxygen Flow Rate (L/min) 4 Oxygen Delivery Method Nasal Cannula Weight: 173 lb 9.6 oz Body Mass Index (BMI) 31.7 Intake and Output for Last 24 Hours 03/15/19 03/16/19 03/17/19 23:59 23:59 23:59 Intake Total 2551 / 2551 2845 / 2845 1166 / 1166 Output Total 1000 / 1000 1000 / 1000 650 / 650 Balance 1551 / 1551 1845 / 1845 516 / 516 General: Alert, Oriented x3, Cooperative, No apparent distress HEENT: Atraumatic, PERRLA, EOMI, Normocephalic Oral: Dry Mucosa Neck: Supple, No JVD Lungs: Clear to auscultation, Normal air movement, No rhonchi, No wheeze, No rales Cardiovascular: Regular rate, Regular Rhythm, Normal S1, Normal S2, No murmurs Abdomen: Soft, Distended, Obese, Non-Tender, tympany to percussion Extremities: No edema, Capillary Refill Less than 3 Seconds Skin: No rashes, No breakdown Neurological: Neuro grossly intact, Sensory exam intact to light touch and pain Psych/Mental Status: Normal Affect, Appropriate Laboratory Results 03/17/19 05:20: WBC 9.6, RBC 3.14 L, Hgb 9.7 L, Hct 30.6 L, MCV 97.5, MCH 30.9, MCHC 31.7 L, RDW 14.1, RDW Differential 48.0 H, Plt Count 186, MPV 8.7, Immature Gran % (Auto) 0.900, Neut % (Auto) 72.0 H, Lymph % (Auto) 16.3 L, [place] % (Auto) 10.1 H, Eos % (Auto) 0.5, Baso % (Auto) 0.2, Absolute Neuts (auto) 6.9, Absolute Lymphs (auto) 1.56, Total Counted Not Reportable 03/17/19 05:20: Sodium 142, Potassium 3.8, Chloride 109 H, Carbon Dioxide 26.0, Anion Gap 7, BUN 7, Creatinine 0.68, Estim Creat Clear Calc 73.06, Est GFR (MDRD) Af Amer 114, Est GFR (MDRD) Non-Af 95, BUN/Creatinine Ratio 10.2, Glucose 98, Calcium 7.2 L Current Medications Acetaminophen (Tylenol) 650 mg PO Q6H PRN PRN PRN Reason: Non-cardiac pain (mod-severe) Last Admin: 03/13/19 21:03 Dose: 650 mg Albuterol Sulfate (Ventolin Aerosols) 2.5 mg INHALATION Q4H PRN PRN PRN Reason: SOB &/OR WHEEZING Last Admin: 03/13/19 19:22 Dose: 2.5 mg Albuterol/Ipratropium (Duoneb) 3 ml INHALATION Q4H.RT [facility] Last Admin: 03/17/19 11:13 Dose: 3 ml Alprazolam (Xanax) 0.5 mg PO Q6H PRN PRN PRN Reason: ANXIETY Last Admin: 03/17/19 02:18 Dose: 0.5 mg Buspirone HCl (Buspar) 20 mg PO TID [facility] Last Admin: 03/17/19 04:21 Dose: 20 mg Cyclobenzaprine HCl (Cyclobenzaprine Hcl) 5 mg PO TID PRN PRN PRN Reason: SPASMS Last Admin: 03/16/19 21:13 Dose: 5 mg Diltiazem HCl (Cardizem Cd) 240 mg PO DAILY [facility] Last Admin: 03/17/19 07:53 Dose: 240 mg Enoxaparin Sodium (Lovenox) 40 mg SC DAILY@1000 [facility] Last Admin: 03/17/19 07:53 Dose: 40 mg Fluticasone Propionate (Flonase Nasal [place]) 1 spray NASAL BID [facility] Last Admin: 03/17/19 07:53 Dose: 1 spray Sodium Chloride () 1,000 mls @ 100 mls/hr IV .Q10H [facility] Last Admin: 03/17/19 09:47 Dose: 100 mls/hr Imatinib Mesylate (Gleevec) 400 mg PO DAILY@1300 [facility] Last Admin: 03/16/19 14:21 Dose: 400 mg Loratadine (Claritin) 10 mg PO DAILY PRN PRN PRN Reason: nasal/sinus congestion Melatonin (Melatonin) 3 mg PO QHS PRN PRN PRN Reason: INSOMNIA Metoclopramide HCl (Reglan) 5 mg IV Q8H PRN PRN PRN Reason: nausea Last Admin: 03/16/19 03:50 Dose: 5 mg Oxycodone HCl (Oxyir) 5 mg PO Q4H PRN PRN PRN Reason: PAIN Last Admin: 03/17/19 04:19 Dose: 5 mg Pantoprazole Sodium (Protonix) 40 mg PO DAILY [facility] Last Admin: 03/17/19 07:53 Dose: 40 mg Potassium [facility]ide ([facility]) [facility] Last Admin: 03/17/19 07:52 Dose: 20 meq Prednisone () [facility] Last Admin: 03/17/19 07:53 Dose: 10 mg Sertraline HCl (Zoloft) 75 mg PO DAILY [facility] Last Admin: 03/17/19 07:53 Dose: 75 mg Medical Necessity - Tobacco Use Smoking Status: Former smoker Tobacco Use: Cigarettes Assessment/Plan All Active Problems (Last Reviewed 02/22/19 @ 03:52 by Aashish Martinez MD) Acute gastroenteritis (Acute) Sepsis (Acute) Abdominal pain, vomiting, and diarrhea (Acute) Hypokalemia (Acute) History of ulcerative colitis (Acute) 1. Viral gastroenteritis/ulcerative colitis/obesity -She is allergic to Zofran therefore will proceed with giving her Reglan hopefully this can possibly increase motility and help alleviate some of the gaseous distention that is seen on the abdominal x-ray -Continue with regular diet -We will continue with oral prednisone and await stool samples -IV fluids at 100 cc/h -If treatment with Reglan does not work, she may need a CT scan of her abdomen and pelvis to better characterize what is going on, her last CT of her abdomen was in 2014 which demonstrated diffuse colitis -Electro lites are stable -My is 34, lifestyle modifications advised 2. CML -This is in chronic remission -Continue with imatinib 3. COPD with chronic hypoxic respiratory failure -She is on 4 L nasal cannula at baseline -We will continue with her home aerosols 4. Depression/anxiety -She is on Zoloft and BuSpar as well as Xanax -Stable, will continue 5. GERD -Stable -Continue with PPI 6. HTN -SBP is stable -Continue with Cardizem DVT: Lovenox Dispo: SNF Code Visit Inpatient E&M: 05842 Subs Hosp L2
--- NOTE | 2019-03-17 11:53 | PN_ITS ---
Patient Problems: Active and Suspected Problems (Last Reviewed 02/22/19 @ 03:52 by Aashish Martinez MD) Abdominal pain, vomiting, and diarrhea (Acute) Hypokalemia (Acute) History of ulcerative colitis (Acute) Subjective: States she does not feel any better, though she is tolerating a diet and her diarrhea has subsided. No nausea or vomiting at the moment Vitals/I&O's: Vital Signs Temp Pulse Resp BP Pulse Ox 99.1 F 118 H 22 H 119/78 94 03/17/19 07:48 03/17/19 11:13 03/17/19 11:13 03/17/19 07:48 03/17/19 07:48 Oxygen Flow Rate (L/min) 4 Oxygen Delivery Method Nasal Cannula Weight: 173 lb 9.6 oz Body Mass Index (BMI) 31.7 Intake and Output for Last 24 Hours 03/15/19 03/16/19 03/17/19 23:59 23:59 23:59 Intake Total 2551 / 2551 2845 / 2845 1166 / 1166 Output Total 1000 / 1000 1000 / 1000 650 / 650 Balance 1551 / 1551 1845 / 1845 516 / 516 General: Alert, Oriented x3, Cooperative, No apparent distress HEENT: Atraumatic, PERRLA, EOMI, Normocephalic Oral: Dry Mucosa Neck: Supple, No JVD Lungs: Clear to auscultation, Normal air movement, No rhonchi, No wheeze, No rales Cardiovascular: Regular rate, Regular Rhythm, Normal S1, Normal S2, No murmurs Abdomen: Soft, Distended, Obese, Non-Tender, tympany to percussion Extremities: No edema, Capillary Refill Less than 3 Seconds Skin: No rashes, No breakdown Neurological: Neuro grossly intact, Sensory exam intact to light touch and pain Psych/Mental Status: Normal Affect, Appropriate Laboratory Results 03/17/19 05:20: WBC 9.6, RBC 3.14 L, Hgb 9.7 L, Hct 30.6 L, MCV 97.5, MCH 30.9, MCHC 31.7 L, RDW 14.1, RDW Differential 48.0 H, Plt Count 186, MPV 8.7, Immature Gran % (Auto) 0.900, Neut % (Auto) 72.0 H, Lymph % (Auto) 16.3 L, [place] % (Auto) 10.1 H, Eos % (Auto) 0.5, Baso % (Auto) 0.2, Absolute Neuts (auto) 6.9, Absolute Lymphs (auto) 1.56, Total Counted Not Reportable 03/17/19 05:20: Sodium 142, Potassium 3.8, Chloride 109 H, Carbon Dioxide 26.0, Anion Gap 7, BUN 7, Creatinine 0.68, Estim Creat Clear Calc 73.06, Est GFR (MDRD) Af Amer 114, Est GFR (MDRD) Non-Af 95, BUN/Creatinine Ratio 10.2, Glucose 98, Calcium 7.2 L Current Medications Acetaminophen (Tylenol) 650 mg PO Q6H PRN PRN PRN Reason: Non-cardiac pain (mod-severe) Last Admin: 03/13/19 21:03 Dose: 650 mg Albuterol Sulfate (Ventolin Aerosols) 2.5 mg INHALATION Q4H PRN PRN PRN Reason: SOB &/OR WHEEZING Last Admin: 03/13/19 19:22 Dose: 2.5 mg Albuterol/Ipratropium (Duoneb) 3 ml INHALATION Q4H.RT [facility] Last Admin: 03/17/19 11:13 Dose: 3 ml Alprazolam (Xanax) 0.5 mg PO Q6H PRN PRN PRN Reason: ANXIETY Last Admin: 03/17/19 02:18 Dose: 0.5 mg Buspirone HCl (Buspar) 20 mg PO TID [facility] Last Admin: 03/17/19 04:21 Dose: 20 mg Cyclobenzaprine HCl (Cyclobenzaprine Hcl) 5 mg PO TID PRN PRN PRN Reason: SPASMS Last Admin: 03/16/19 21:13 Dose: 5 mg Diltiazem HCl (Cardizem Cd) 240 mg PO DAILY [facility] Last Admin: 03/17/19 07:53 Dose: 240 mg Enoxaparin Sodium (Lovenox) 40 mg SC DAILY@1000 [facility] Last Admin: 03/17/19 07:53 Dose: 40 mg Fluticasone Propionate (Flonase Nasal [place]) 1 spray NASAL BID [facility] Last Admin: 03/17/19 07:53 Dose: 1 spray Sodium Chloride () 1,000 mls @ 100 mls/hr IV .Q10H [facility] Last Admin: 03/17/19 09:47 Dose: 100 mls/hr Imatinib Mesylate (Gleevec) 400 mg PO DAILY@1300 [facility] Last Admin: 03/16/19 14:21 Dose: 400 mg Loratadine (Claritin) 10 mg PO DAILY PRN PRN PRN Reason: nasal/sinus congestion Melatonin (Melatonin) 3 mg PO QHS PRN PRN PRN Reason: INSOMNIA Metoclopramide HCl (Reglan) 5 mg IV Q8H PRN PRN PRN Reason: nausea Last Admin: 03/16/19 03:50 Dose: 5 mg Oxycodone HCl (Oxyir) 5 mg PO Q4H PRN PRN PRN Reason: PAIN Last Admin: 03/17/19 04:19 Dose: 5 mg Pantoprazole Sodium (Protonix) 40 mg PO DAILY [facility] Last Admin: 03/17/19 07:53 Dose: 40 mg Potassium [facility] Last Admin: 03/17/19 07:52 Dose: 20 meq [facility] () [facility] Last Admin: 03/17/19 07:53 Dose: 10 mg Sertraline HCl (Zoloft) 75 mg PO DAILY [facility] Last Admin: 03/17/19 07:53 Dose: 75 mg Medical Necessity - Tobacco Use Smoking Status: Former smoker Tobacco Use: Cigarettes Assessment/Plan All Active Problems (Last Reviewed 02/22/19 @ 03:52 by Aashish Martinez MD) Acute gastroenteritis (Acute) Sepsis (Acute) Abdominal pain, vomiting, and diarrhea (Acute) Hypokalemia (Acute) History of ulcerative colitis (Acute) 1. Viral gastroenteritis/ulcerative colitis/obesity -She is allergic to Zofran therefore will proceed with giving her Reglan hopefully this can possibly increase motility and help alleviate some of the gaseous distention that is seen on the abdominal x-ray -Continue with regular diet -We will continue with oral prednisone and await stool samples -IV fluids at 100 cc/h -If treatment with Reglan does not work, she may need a CT scan of her abdomen and pelvis to better characterize what is going on, her last CT of her abdomen was in 2014 which demonstrated diffuse colitis -Electro lites are stable -My is 34, lifestyle modifications advised 2. CML -This is in chronic remission -Continue with imatinib 3. COPD with chronic hypoxic respiratory failure -She is on 4 L nasal cannula at baseline -We will continue with her home aerosols 4. Depression/anxiety -She is on Zoloft and BuSpar as well as Xanax -Stable, will continue 5. GERD -Stable -Continue with PPI 6. HTN -SBP is stable -Continue with Cardizem DVT: Lovenox Dispo: SNF Code Visit Inpatient E&M: 10447 Subs Hosp L2
[2019-03-17] MEDS: Metoclopramide 10 MG/2 ML Vial 5 MG IV (13:41)
--- NOTE | 2019-03-17 14:31 | CASEMGMT ---
Social Work Note SW met with pt, pt has guest present in room. SW introduced self and role at [facility]. Pt is alert and orientated x3. Pt gave this worker permission to speak to her in front of her guest. SW informed pt that per [facility] they are going out of contract with [facility] and they may not be able to accept pt due to this. SW informed pt that this worker is waiting to hear back from [facility] but asked if pt had a second option in the event that [facility] is unable to accept pt. Pt's guest mentioned [facility] and asked about private beds. SW informed pt that [facility] has all private beds. Pt agreeable to this worker calling [facility] and making referral. Pt's guest asked this worker why pt hasn't been transferred to a hospital with a pellet machine operator. SW informed pt's guest that this worker is not sure, that this worker just works with discharge plans but that this worker can ask RN to speak with pt and her guest. SW updated RN on pt's guest concerns. REGINALD placed a call to Elif at [facility]. Elif states that they are in network with [facility] now. SW updated Elif on referral and informed her to let this worker know if she is able to accept but not to submit for pre-cert yet as this worker is waiting to hear from a SNF in [place] as that is where pt lives. Elif states understanding. SW faxed referral to [facility]. PT did update this worker that pt is currently throwing up and unable to participate in PT. Plan: SNF pending acceptance and pre-cert. Irina Lyles PROVER, CASE HARDENER
--- NOTE | 2019-03-17 16:04 | CASEMGMT ---
Social Work Note Pt and pt's guest is requesting transfer to [facility]. REGINALD spoke with Gema at [facility]. Gema states that they are able to accept pt and submitted for pre-cert. REGINALD informed Gema that per pt's request pt is wanting to be transferred to [facility] and that the physician is waiting for [place] to call him back. REGINALD informed Gema that this worker is getting ready to leave for the day and this worker can follow up with Gema tomorrow in regards to pt. Gema states understanding, provided cell phone #[phone]. REGINALD placed a call to Elif at [facility] and left her a message to disregard referral as pt is requesting to be transferred to [facility]. Plan: Possible transfer to [facility] or [facility] pending pre-cert Irina Lyles DIRECTOR QUALITY SYSTEMS, TALENT ACQUISITION RELATIONSHIP MANAGER
--- NOTE | 2019-03-17 16:24 | DCINST_ITS ---
- Discharge Diagnoses Current Active Problems: Current Active and Chronic Problems (Last Reviewed 02/22/19 @ 03:52 by Aashish Martinez MD) Abdominal pain, vomiting, and diarrhea (Acute) Hypokalemia (Acute) History of ulcerative colitis (Acute) You will use the following diet at home:: Full liquid Your food should be the consistency of: Regular Your liquids should be the consistency of: Regular/Thin Allergies/Adverse Reactions: Allergies Penicillins Allergy (Severe, Verified 03/13/19 11:57) Hives azithromycin Adverse Reaction (Severe, Verified 03/13/19 11:57) Diarrhea codeine Adverse Reaction (Severe, Verified 03/13/19 11:57) Vomiting ondansetron HCl [From Zofran (as hydrochloride)] Adverse Reaction (Severe, Verified 03/13/19 11:57) Nausea pregabalin [From Lyrica] Adverse Reaction (Severe, Verified 03/13/19 11:57) i can't see propoxyphene napsylate [From Darvocet-N 100] Adverse Reaction (Severe, Verified 03/13/19 11:57) Vomiting Sulfa (Sulfonamide Antibiotics) Adverse Reaction (Intermediate, Verified 03/13/19 11:57) Hives Medications to take at Discharge ALPRAZolam [Xanax] 0.5 mg PO Q6H PRN PRN 10/18/18 Albuterol Aerosols [Ventolin Aerosols] 2.5 mg INHALATION Q4H PRN PRN 10/18/18 Budesonide/Formoterol Fumarate [Symbicort 160-4.5 Mcg Inhaler] 2 puff IH BID 10/18/18 Buspirone HCl 20 mg PO TID 10/18/18 Diltiazem CD [Cardizem CD] 240 mg PO DAILY 10/18/18 Omeprazole 40 mg PO DAILY 10/18/18 Potassium Chloride [Klor-Con] 20 meq PO BID 10/18/18 Prochlorperazine Maleate [Compazine] 10 mg PO Q6H 10/18/18 Sertraline HCl [Zoloft] 50 mg PO DAILY 10/18/18 Fexofenadine HCl [Wal-Fex Allergy] 180 mg PO DAILY PRN PRN #0 10/23/18 Sertraline HCl [Zoloft] 25 mg PO DAILY 01/10/19 albuterol sulfate HFA 90 mcg/actuation aerosol inhaler 2 puff INHALATION Q4H PRN PRN #18 g 01/14/19 tiotropium bromide 18 mcg capsule with inhalation device 1 cap INHALATION DAILY #30 inh 01/14/19 Imatinib Mesylate 400 mg PO 1300 MDD 400 mg 02/22/19 Prednisone 10 mg PO DAILY #30 tab 02/24/19 Cyclobenzaprine HCl 5 mg PO TID PRN PRN 03/13/19 Fluticasone Propionate 1 spray INTRANASAL BID 03/13/19 Oxycodone [Oxyir] 5 mg PO Q4H PRN PRN 03/13/19 Primary Care Physician: Jennifer Coelho NP-C [Primary Care Provider] - Test Results: Test results from this visit will be discussed in further detail at your follow- up appointment, if applicable.
--- NOTE | 2019-03-17 16:25 | DS.PCM_ITS ---
Discharge Date and Diagnosis - Problem List Patient Problems: Active and Suspected Problems (Last Reviewed 02/22/19 @ 03:52 by Aashish Martinez MD) Abdominal pain, vomiting, and diarrhea (Acute) Hypokalemia (Acute) History of ulcerative colitis (Acute) Date of Admission: 03/13/19 Date of Discharge: 03/17/19 - Primary Discharge Diagnosis Active and Suspected Problems (Last Reviewed 02/22/19 @ 03:52 by Aashish Martinez MD) Abdominal pain, vomiting, and diarrhea (Acute) Hypokalemia (Acute) History of ulcerative colitis (Acute) - Secondary Discharge Diagnosis Chronic Problems (Last Reviewed 02/22/19 @ 03:52 by Aashish Martinez MD) HTN (hypertension) (Chronic) Fibromyalgia (Chronic) Nicotine abuse (Chronic) Seasonal allergies (Chronic) RUQ pain (Chronic) Stage 3 severe COPD by GOLD classification (Chronic) Chronic hypoxemic respiratory failure (Chronic) Ulcerative colitis (Chronic) Carpal tunnel syndrome (Chronic) Obesity (BMI 30.0-34.9) (Chronic) Poor compliance with medication (Chronic) CML (chronic myelocytic leukemia) (Chronic) DREW (generalized anxiety disorder) (Chronic) Emphysema of lung (Chronic) Depression (Chronic) History of cardiac cath (Chronic) 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 History of hysterectomy (Chronic) History of hemorrhoidectomy (Chronic) cataract surgery (Chronic) Hospital Course and Treatment Imaging Results: AXR: IMPRESSION: Findings suspicious of colitis involving the transverse colon and descending colon. Small left pleural effusion with left basilar infiltrate. Consults: None Operations: None Procedures: None Summary of Care Provided: Per HPI: The patient is a 58 year old F with PMH as below who presents with continued nausea, vomiting, and diarrhea. She also has abdominal pain and bloating. This is been going on she says for the last 6 weeks. She was recently admitted and started on Cipro/Flagyl for possible C. difficile. Testing came back negative and that was discontinued and she was discharged on steroids as well as her imatinib that she takes for her CML. She states that she saw the splicer operator 2 days ago who did not do anything into that he would see her in 2 weeks. She presents to the hospital today out of frustration and wanting this to be figured out. She has had no change in her symptoms since discharge and in the ER her only abnormality was a potassium of 2.7. Hospital Course: 1. Viral gastroenteritis/ulcerative colitis/[id number]-hejk-old female who presented initially with nausea, vomiting, and diarrhea has continued to have symptoms of all 3:03 or 4 days here in the hospital. Initially on admission it was thought that this was secondary to constipation with overflow diarrhea. She was started on Reglan to help improve motility. At that time magnesium and phosphorus were also obtained which were critically low and replaced appropriately. Since then she has not been able to hold much food down, but it does appear through the notes that she had slight improvement over the weekend and was contemplating going to a senior care facility. Today she felt worse and it was offered to have a CT scan however she and her friend expressed a desire to be transferred to another facility. She was accepted at [facility] with plans for a colonoscopy as an inpatient. She has been having the symptoms for about 6 weeks and had been admitted 2 weeks prior to this admission with the similar symptoms. At that time she followed up with a splicer operator in [place] who had recommended colonoscopy in 2 weeks if symptoms have not improved. Though her abdomen is distended with some tympany, she has no leukocytosis or fever. Unfortunately the stool studies that were ordered on admission appear to have been canceled and therefore we do not have any clarifying information at this time. In terms of her ulcerative colitis, she had a CT scan of her abdomen in 2014 that had demonstrated diffuse colitis and had been on steroids but she had not followed up with a splicer operator for quite a while. She denies any blood in her stools. 2. CML -This is in chronic remission -Continue with imatinib 3. COPD with chronic hypoxic respiratory failure -She is on 4 L nasal cannula at baseline -We will continue with her home aerosols 4. Depression/anxiety -She is on Zoloft and BuSpar as well as Xanax -Stable, will continue 5. GERD -Stable -Continue with PPI 6. HTN -SBP is stable -Continue with Cardizem Patient Problems: Active and Suspected Problems (Last Reviewed 02/22/19 @ 03:52 by Aashish Martinez MD) Abdominal pain, vomiting, and diarrhea (Acute) Hypokalemia (Acute) History of ulcerative colitis (Acute) - Physical Exam Vital Signs Temp Pulse Resp BP Pulse Ox 98.6 F 121 H 22 H 134/95 H 92 03/17/19 16:00 03/17/19 16:00 03/17/19 16:00 03/17/19 16:00 03/17/19 16:00 Oxygen Flow Rate (L/min) 4 Oxygen Delivery Method Nasal Cannula Weight: 173 lb 9.6 oz Body Mass Index (BMI) 31.7 Intake and Output for Last 24 Hours 03/15/19 03/16/19 03/17/19 23:59 23:59 23:59 Intake Total 2551 / 2551 2845 / 2845 1805 / 1805 Output Total 1000 / 1000 1000 / 1000 650 / 650 Balance 1551 / 1551 1845 / 1845 1155 / 1155 Laboratory Tests Past 24 Hrs 03/17/19 03/17/19 05:20 05:20 WBC 9.6 RBC 3.14 L Hgb 9.7 L Hct 30.6 L MCV 97.5 MCH 30.9 MCHC 31.7 L RDW 14.1 RDW Differential 48.0 H Plt Count 186 MPV 8.7 Immature Gran % (Auto) 0.900 Neut % (Auto) 72.0 H Lymph % (Auto) 16.3 L [place] % (Auto) 10.1 H Eos % (Auto) 0.5 Baso % (Auto) 0.2 Absolute Neuts (auto) 6.9 Absolute Lymphs (auto) 1.56 Total Counted Not Reportable Sodium 142 Potassium 3.8 Chloride 109 H Carbon Dioxide 26.0 Anion Gap 7 BUN 7 Creatinine 0.68 Estim Creat Clear Calc 73.06 Est GFR (MDRD) Af Amer 114 Est GFR (MDRD) Non-Af 95 BUN/Creatinine Ratio 10.2 Glucose 98 Calcium 7.2 L Home Medications: Medications to take at Discharge ALPRAZolam [Xanax] 0.5 mg PO Q6H PRN PRN 10/18/18 Albuterol Aerosols [Ventolin Aerosols] 2.5 mg INHALATION Q4H PRN PRN 10/18/18 Budesonide/Formoterol Fumarate [Symbicort 160-4.5 Mcg Inhaler] 2 puff IH BID 10/18/18 Buspirone HCl 20 mg PO TID 10/18/18 Diltiazem CD [Cardizem CD] 240 mg PO DAILY 10/18/18 Omeprazole 40 mg PO DAILY 10/18/18 Potassium Chloride [Klor-Con] 20 meq PO BID 10/18/18 Prochlorperazine Maleate [Compazine] 10 mg PO Q6H 10/18/18 Sertraline HCl [Zoloft] 50 mg PO DAILY 10/18/18 Fexofenadine HCl [Wal-Fex Allergy] 180 mg PO DAILY PRN PRN #0 10/23/18 Sertraline HCl [Zoloft] 25 mg PO DAILY 01/10/19 albuterol sulfate HFA 90 mcg/actuation aerosol inhaler 2 puff INHALATION Q4H PRN PRN #18 g 01/14/19 tiotropium bromide 18 mcg capsule with inhalation device 1 cap INHALATION DAILY #30 inh 01/14/19 Imatinib Mesylate 400 mg PO 1300 MDD 400 mg 02/22/19 Prednisone 10 mg PO DAILY #30 tab 02/24/19 Cyclobenzaprine HCl 5 mg PO TID PRN PRN 03/13/19 Fluticasone Propionate 1 spray INTRANASAL BID 03/13/19 Oxycodone [Oxyir] 5 mg PO Q4H PRN PRN 03/13/19 Primary Care Physician: Jennifer Coelho NP-C [Primary Care Provider] - Disposition: Acute care Hospital Minutes spent on discharge:: 35 Patient Condition:: Stable Medical Necessity - Tobacco Use Smoking Status: Former smoker Tobacco Use: Cigarettes Meaningful Use Info Meaningful Use Diagnoses (Choose all that apply): None applicable Code Visit Inpatient E&M: 25894 Disch Hosp
--- NOTE | 2019-03-17 18:39 | NURSING ---
called report to Park at [facility] at this time. notified of p/u time of 1899.
--- NOTE | 2019-03-18 08:43 | CASEMGMT ---
Social Work Note Pt was transferred to [facility] last night. SW placed a call to Gema at [facility], left message, informing her pt was transferred to [facility] last night. REGINALD placed a call to Chaya at [facility] and updated her that pt was transferred last night as well. Irina Lyles PRINCIPAL ACCOUNT CLERK, [employer] SPIKE ASSEMBLER
== END 2019-03-17 19:15 | disposition short-term general hospital (02) | DRG 249 ==
LOC: ED 15:26 → MS3 16:54
PROVIDERS: Family Medicine; Internal Medicine; Admitting Provider Family Medicine; Emergency Provider Emergency Medicine; Family Provider Nurse Practitioner Family; PCP Nurse Practitioner Family; Visit Provider Family Medicine
DX: A08.4 Viral intestinal infection, unspecified (principal); C92.11 Chronic myeloid leukemia, BCR/ABL-positive, in remission; E87.6 Hypokalemia; J96.11 Chronic respiratory failure with hypoxia; Z99.81 Dependence on supplemental oxygen; E83.39 Other disorders of phosphorus metabolism; E83.42 Hypomagnesemia; E66.9 Obesity, unspecified; I10 Essential (primary) hypertension; K51.90 Ulcerative colitis, unspecified, without complications; Z68.32 Body mass index [BMI] 32.0-32.9, adult; Z86.711 Personal history of pulmonary embolism; F41.1 Generalized anxiety disorder; M79.7 Fibromyalgia; J44.9 Chronic obstructive pulmonary disease, unspecified; Z87.891 Personal history of nicotine dependence
CPT/HCPCS: 36415; 74022; 80048; 80053; 83735; 84100; 84132; 85025; 93005; 94640; 97162; 97165; 97535; 99285; J7030; J7050; A4216; J0610

== ENCOUNTER 2019-05-12 16:53 | Emergency (ER) | payer MEDICAID, SELFPAY ==
[2019-04-15 13:01] VITALS: BMI 32.5
[2019-05-12 16:56] VITALS: BP 146/92; PULSE 107; RESP 18; TEMP 36.9; O2SAT 95; BMI 31.4
--- NOTE | 2019-05-12 17:54 | ED.VISSUMM ---
- ER Visit Summary Date of Service: 05/12/19 Chief Complaint: 4 day history of left posterior lower rib cage pain. History of Present Illness: The patient is a 58 F history of COPD on 4 L of oxygen. Also currently myelogenous leukemia, hypertension and ulcerative colitis. Patient states she is had 4 days of left lower rib cage pain flank pain. Denies any fall or trauma. Denies any dysuria. No fever. No prior history. Physical Examination: Well-appearing middle-aged female. Vital signs are stable. She is on oxygen her pulse ox is 95% on 4 L which is her home O2 baseline. HEENT exam unremarkable. Neck nontender. Lungs coarse breath sounds consistent with COPD. Heart regular rhythm rate about 105 no murmur. Abdomen soft nontender normal bowel sounds no peritoneal signs. Extremities moves all 4. She has 1+ pitting edema both lower extremities which she states is chronic. Is equal symmetrical. Calves are nontender without cords. Back she has left lateral and lower rib cage pain. There is no ecchymosis or bruising. No signs of trauma. No subcu air crepitance. Neurologically she is awake alert with no focal motor deficits. Test Results: Chest x-ray with AP and lateral 2 views shows no acute abnormality. Atelectasis. Read both by the radiologist to me. CBC shows chronic anemia with a hemoglobin of 10. Normal white count. Electrolytes normal normal creatinine and gap. Emergency Department Course and Treatment: Patient was offered but did not waiting for pain at this time. Clinically this appears to be musculoskeletal left lower rib cage pain I will obtain a chest x-ray and labs. Treatment Plan: Repeat exam at 1913 p.m. the patient is doing well. She and I discussed her test results. She is comfortable being discharged home. She did not want anything for pain. Disposition: Discharge Impression: Left lower rib cage pain COPD hx This note was generated with Netech[employer] dictation software. It may contain incorrect words, spelling, and punctuation that were not noted in review of the chart prior to signing ED Disposition - Plan for ED Patient: Referrals: Jeninfer Coelho, GAVINO-C [Primary Care Provider] -
--- NOTE | 2019-05-12 18:07 | RAD_ITS ---
STUDY: X-RAY CHEST REASON FOR EXAM: Female, 58 years old. Left lower lung pain. Back pain. Shortness of breath TECHNIQUE: PA and lateral views of the chest. COMPARISON: January 10, 2019. FINDINGS: There is minimally decreased inspiratory effort with worsening right basilar atelectasis. There is no demonstrated pleural abnormality. Stable cardiomegaly. Normal mediastinum and sven. Normal visualized pulmonary arteries. Normal visualized aortic arch and descending thoracic aorta. The thoracic spine is obscured by the mediastinum. Normal visualized ribs, clavicles, and shoulders. There is a retrocardiac hiatal hernia. RAD/Chest PA and Lateral IMPRESSION: 1. Decreased inspiratory effort with increasing right basilar atelectasis. 2. Stable cardiomegaly. Electronically Signed: Neil Dean DO at 18:20 EDT Tel [phone], Service support ,
[2019-05-12 18:10] LABS: Anion Gap 7 (5-15); BUN 9 mg/dL (7-18); BUN/Creat Ratio 10.4 RATIO (10-20); Calcium,Total 8.4 mg/dL (8.5-10.1); Chloride 105 mmol/L (98-107); Creatinine, Serum 0.86 mg/dL (0.55-1.02); EST Glomerular Filtration Rate 72 mL/min (>60); Est Glom Filt Rate - Afr Amer 87 mL/min (>60); Estimated Creatinine Clearance 57.77 ml/min; Glucose 140 mg/dL (74-106); Potassium 4.1 mmol/L (3.5-5.1); Sodium Level 139 mmol/L (136-145)
[2019-05-12 18:11] LABS: Absolute Lymphocyte Count 1.18 X10^3/uL (0.83-4.51); Absolute Neutrophil Count 8.4 X10^3/uL (2.0-7.7); Basophil# 0.01 X10^3/uL; Basophil% 0.1 % (0-1); Hematocrit 32.6 % (37-47); Hemoglobin 10.4 g/dL (12.0-15.0); Lymphocyte # 1.18 X10^3/ul (4.0); Lymphocyte % 11.6 % (19-41); Mean Corp Hgb Conc 31.9 g/dL (32-36); Mean Corpuscular Hgb 30.9 pg (27.0-32.0); Mean Corpuscular Volume 96.7 fL (81-99); Mean Platelet Vol. 9.7 fl (6.2-12.0); Monocyte# 0.48 X10^3/uL; Monocyte% 4.7 % (0-10); NRBC Flagged by Analyzer 0 % (0-5); Neutrophil # 8.42 X10^3/uL (2.7-7.7); Neutrophil % 82.5 % (47-70); Platelet Count 238 K/mm3 (150-450); RBC Distribution Width CV 14.2 % (11.6-14.6); RBC Distribution Width SD 50.7 fl (35.1-43.9); Red Blood Count 3.37 M/mm3 (4.2-5.4); White Blood Count 10.2 K/mm3 (4.4-11.0)
--- NOTE | 2019-05-12 19:17 | ED.DEP ---
ED Disposition - Plan for ED Patient: Disposition: Home or Assisted Living Referrals: Jennifer Coelho, GAVINO-C [Primary Care Provider] - 3-5 Days if not improving Additional Instructions: Ice to your left lower rib cage. Tylenol or Motrin for pain. Follow-up with your doctor if not improving.
[2019-05-12 19:25] VITALS: BP 115/96; PULSE 99; O2SAT 96
== END 2019-05-12 19:28 | disposition home or self-care (01) ==
PROVIDERS: Emergency Provider Emergency Medicine; Family Provider Nurse Practitioner Family; PCP Nurse Practitioner Family
DX: R07.81 Pleurodynia (principal); J44.9 Chronic obstructive pulmonary disease, unspecified; R60.0 Localized edema; D53.9 Nutritional anemia, unspecified; C92.90 Myeloid leukemia, unspecified, not having achieved remission; I10 Essential (primary) hypertension; K51.90 Ulcerative colitis, unspecified, without complications; Z99.81 Dependence on supplemental oxygen; Z79.899 Other long term (current) drug therapy
CPT/HCPCS: 71046; 80048; 85025; 99285; A4216

== ENCOUNTER 2019-05-15 19:30 | Emergency (ER) | payer MEDICAID, SELFPAY ==
[2019-05-15 19:32] VITALS: BP 142/102; PULSE 131; RESP 15; RESP 18; TEMP 37.2; O2SAT 88; BMI 32.0
[2019-05-15 19:37] VITALS: O2SAT 89
--- NOTE | 2019-05-15 20:00 | EKG12_ITS ---
Test Reason : CHEST PAIN Blood Pressure : / mmHG Vent. Rate : 129 BPM Atrial Rate : 129 BPM P-R Int : 142 ms QRS Dur : 076 ms QT Int : 304 ms P-R-T Axes : 045 090 044 degrees QTc Int : 445 ms Sinus tachycardia Rightward axis Low voltage QRS Borderline ECG Confirmed by NIKKI CELESTE ([id number]), digital editor ANGE TOUSSAINT ([id number]) on 05/19/2019 1:15:51 PM Referred By: DYLAN Confirmed By:NIKKI CELESTE
--- NOTE | 2019-05-15 20:15 | RAD_ITS ---
STUDY: X-RAY CHEST REASON FOR EXAM: Female, 58 years old. Short of breath. TECHNIQUE: AP upright and lateral chest radiographs. COMPARISON: 05/12/2019 radiographs. FINDINGS: Bibasilar opacities have worsened slightly compared to previous. Underlying emphysema, mild cardiomegaly otherwise similar to prior. No apparent pneumothorax or pleural effusion. No acute osseous abnormality. RAD/Chest PA and Lateral IMPRESSION: Slight interval worsening of bibasilar opacities suspicious for pneumonia or edema superimposed upon atelectasis. Mild emphysema and cardiomegaly otherwise similar to prior. Electronically Signed: Jimy Mcginnis, at 20:31 EDT Tel , Service support ,
[2019-05-15 20:40] LABS: Absolute Lymphocyte Count 1.96 X10^3/uL (0.83-4.51); Absolute Neutrophil Count 6.4 X10^3/uL (2.0-7.7); Basophil# 0.03 X10^3/uL; Basophil% 0.3 % (0-1); Eosinophil# 0.07 X10^3/uL; Eosinophils% 0.8 % (0-5); Hematocrit 32.7 % (37-47); Hemoglobin 10.2 g/dL (12.0-15.0); Lymphocyte # 1.96 X10^3/ul (4.0); Lymphocyte % 21.3 % (19-41); Mean Corp Hgb Conc 31.2 g/dL (32-36); Mean Corpuscular Volume 96.2 fL (81-99); Mean Platelet Vol. 9.2 fl (6.2-12.0); Monocyte# 0.68 X10^3/uL; Monocyte% 7.4 % (0-10); NRBC Flagged by Analyzer 0 % (0-5); Neutrophil # 6.38 X10^3/uL (2.7-7.7); Neutrophil % 69.3 % (47-70); Platelet Count 225 K/mm3 (150-450); RBC Distribution Width CV 14.4 % (11.6-14.6); White Blood Count 9.2 K/mm3 (4.4-11.0)
[2019-05-15 20:45] LABS: Prothrombin Time (Protime)PT. 13.3 SECONDS (11.7-14.9)
[2019-05-15 20:52] LABS: D-Dimer Quantitative (DVT/PE) 2.23 FEU/ug/m (0.27-0.49)
--- NOTE | 2019-05-15 20:52 | ED.RN ---
LAB CALLED WITH CRITICAL LAB RESULTS. D DIMER 2.. DR. BISHOP MADE AWARE NO NEW ORDERS AT THIS TIME
[2019-05-15 20:55] LABS: Allen Test POS; Base Excess 2 mmol/L (-2 to +2); Bicarbonate 25.1 mmol/L (22-26); Blood Gas Specimen Type ART; O2 Delivery Device Nasal Can; PO2 64 mmHG (75-100); SITE L Radial; SO2 94 % (95-99); Time Given 2043; Total Carbon Dioxide 26 mmol/L; pCO2 32.8 mmHg (35-45); pH 7.49 (7.35-7.45)
[2019-05-15 20:56] LABS: Lactic Acid 1.1 mmol/L (0.4-2.0)
[2019-05-15 20:58] LABS: ALB/GLOB Ratio 0.7 RATIO (0.9-2.4); AST(SGOT) 11 U/L (15-37); Alanine Aminotransfer ALT/SGPT 11 U/L (13-56); Albumin, Serum 2.2 g/dL (3.2-5.0); Alkaline Phosphatase 88 U/L (45-117); Anion Gap 7 (5-15); BUN 8 mg/dL (7-18); BUN/Creat Ratio 8.7 RATIO (10-20); Chloride 106 mmol/L (98-107); Creatinine, Serum 0.92 mg/dL (0.55-1.02); EST Glomerular Filtration Rate 67 mL/min (>60); Est Glom Filt Rate - Afr Amer 81 mL/min (>60); Globulin 3.3 g/dL (2.2-4.2); Glucose 89 mg/dL (74-106); Potassium 3.2 mmol/L (3.5-5.1); Protein, Total 5.5 g/dL (6.4-8.2); Sodium Level 142 mmol/L (136-145)
--- NOTE | 2019-05-15 20:58 | CT_ITS ---
STUDY: CTA CHEST REASON FOR EXAM: Female, 58 years old. Hypoxia RADIATION DOSAGE (If Supplied By Facility): CTDIvol = ( 9.50 ) mGy, DLP = ( 346.25 ) mGycm TECHNIQUE: The examination was performed with the intravenous administration of 75ML IV Isovue 370. Post-processing of the angiographic images was performed, with multiplanar reformation and 3D reconstruction. Individualized dose optimization techniques were used for this CT. COMPARISON: None. FINDINGS: Normal enhancement of the main pulmonary artery and right and left pulmonary arteries. Normal enhancement of the bilateral peripheral pulmonary arteries. There is no demonstrated pulmonary embolism. Normal thoracic aorta and visualized great vessels. There is no demonstrated aortic dissection. Normal heart and pericardium. Normal mediastinum. Normal hilar regions. Normal visualized trachea and bronchi. The lungs demonstrate emphysematous changes. Bilateral lower lobe scarring/atelectasis. Lower lobe interstitial prominence, left more than right. Normal pleura. Normal chest wall structures. Normal osseous structures. Normal visualized upper abdomen. CT/CTA Chest W/WO Contrast IMPRESSION: No demonstrated pulmonary embolism or arterial dissection. Mild emphysematous changes and interstitial prominence. Bibasilar scarring/atelectasis. Electronically Signed: Bruce Cerda DO at 22:01 EDT Tel [phone], Service support ,
--- NOTE | 2019-05-15 21:27 | ED.VIS.GEN ---
History of Present Illness Chief Complaint: Chest Other Informant: Patient Onset: Days Context: Sudden Onset Timing: Continuous Quality: Posterior left rib cage, pain with pleuritic component Location: Posterior left rib cage Current Severity: Mild Maximum Severity: Moderate Worsened by: Breathing Relieved by: Nothing Associated Symptoms: Shortness of breath Narrative: Patient was seen May 12 and medical record was reviewed. Chest x-ray was unremarkable. Patient has history of chronic respiratory failure with hypoxia. She is on home oxygen. She presents with left sided back/rib cage pain that has a pleuritic component associate with shortness of breath. She does complain of dyspnea with exertion. She denies history of PE or DVT. She denies leg pain, swelling discoloration. She reports mild nasal congestion. She denies earache, sore throat, postnasal drainage. She denies anterior chest pain. She denies GI symptoms. Prior similar symptoms: No Recent Illness/Hospitalization: Yes - Past Medical History (1) Tachycardia Status: Acute (2) CML (chronic myelocytic leukemia) Status: Chronic (3) Chronic hypoxemic respiratory failure Status: Chronic (4) Emphysema of lung Status: Chronic (5) Essential hypertension Status: Chronic (6) Fibromyalgia Status: Chronic (7) Nicotine abuse Status: Chronic (8) Ulcerative colitis Status: Chronic Past Medical History - Allergies and Home Meds Allergies/Adverse Reactions: Allergies ondansetron [From Zofran] Allergy (Severe, Verified 05/15/19 19:32) Anaphylaxis Penicillins Allergy (Severe, Verified 05/15/19 19:32) Hives azithromycin Adverse Reaction (Severe, Unverified 05/15/19 22:20) Diarrhea codeine Adverse Reaction (Severe, Unverified 05/15/19 22:20) Vomiting ondansetron HCl [From Zofran (as hydrochloride)] Adverse Reaction (Severe, Verified 05/15/19 19:32) Nausea pregabalin [From Lyrica] Adverse Reaction (Severe, Verified 05/15/19 19:32) i can't see propoxyphene napsylate [From Darvocet-N 100] Adverse Reaction (Severe, Verified 05/15/19 19:32) Vomiting Sulfa (Sulfonamide Antibiotics) Adverse Reaction (Intermediate, Verified 05/15/19 19:32) Hives Primary Care Physician: Jennifer Coelho NP-C [Primary Care Provider] - Prior records reviewed: Yes Surgical History: hysterectomy, - - Hemorrhoidectomy, 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 Lives: Alone Smoking Status: Former smoker Alcohol: None Drugs: None - Family History Maternal Family History: Family History (Last Reviewed 04/15/19 @ 13:55 by Angelica Nobles MD) Mother Ovarian cancer Brother Heart disease Grandmother Heart disease Grandfather Heart disease Family History: Reports: - - mother with ovarian cancer; denies family history of any blood disorders or blood cancers Paternal Family History: Family History (Last Reviewed 04/15/19 @ 13:55 by Angelica Nobles MD) Mother Ovarian cancer Brother Heart disease Grandmother Heart disease Grandfather Heart disease Family History: Reports: Diabetes, - - father was exposed from agent orange Review of Systems General: Denies: Chills, Fever, Malaise, Subjective, Sweats Eyes: Denies: Visual changes - bilaterally, Blurred Vision - bilaterally, Diplopia ENT: Denies: Rhinorrhea, Sore throat Cardiovascular: Reports: Chest pain, Palpitations, Heart racing Respiratory: Reports: Dyspnea, Cough, Dyspnea on exertion. Denies: Orthopnea, Paroxysmal nocturnal dyspnea Gastrointestinal: Denies: Abdominal pain, Nausea, Vomiting, Diarrhea, Melena, Hematochezia Genitourinary: Denies: Dysuria, Hematuria, Frequency Musculoskeletal: Denies: Back pain, Extremity Pain Skin: Denies: Rash, Wounds Neurological: Denies: Headache, Weakness, Numbness Psych: Reports: Depression Endocrine: Denies: Polyuria Hematologic: Denies: Easy bruising, Easy bleeding Physical Exam Vital Signs/Narrative: Vital Signs Temp Pulse Resp BP Pulse Ox 05/15/19 19:32 98.9 F 131 H 18 142/102 H 88 Inital Vital Signs reviewed: Yes General: Well nourished, Well developed, Obese, Acute Distress Head: Normocephalic, Atraumatic Eyes: Perrl, EOMI. Negative for: Pale conjunctiva, Scleral icterus, - ENT: Moist mucous membranes, No rhinorrhea, TM's clear Neck: Supple, Nontender Cardiovascular: Regular rhythm, No murmurs, Normal S1, Normal S2, Tachycardia Respiratory: Chest nontender, Rales. Negative for: No distress, CTA bilaterally Abdomen: Soft, Nontender, Nondistended, Normal bowel sounds, No masses Back: Nontender, Normal Inspection. Negative for: CVA tenderness Extremities: Nontender, Tenderness. Negative for: No edema, Edema Skin: Normal color, No rash, No Trauma. Negative for: Cyanosis, Diaphoresis, Jaundice Neurological: Alert, Oriented x3, Cranial nerves II-XII grossly intact, Normal Strength, Normal Sensation Psychological: Normal affect Diagnostic/Tx/Re-eval Chest X-Ray - ED: 2 View, Read by ED Physician, Normal, Heart, Mediastinum, Bony Structures, No Acute Disease, Chronic Changes Impressions Chest X-Ray 05/15/19 20:15 IMPRESSION: Slight interval worsening of bibasilar opacities suspicious for pneumonia or edema superimposed upon atelectasis. Mild emphysema and cardiomegaly otherwise similar to prior. Electronically Signed: Jimy Mcginnis, at 20:31 EDT Tel , Service support , Chest CTA 05/15/19 20:58 IMPRESSION: No demonstrated pulmonary embolism or arterial dissection. Mild emphysematous changes and interstitial prominence. Bibasilar scarring/atelectasis. Electronically Signed: Bruce Cerda DO at 22:01 EDT Tel [phone], Service support , 05/15/19 20:15 Chest PA and Lateral [RAD] Stat 05/15/19 20:58 CTA Chest W/WO Contrast [CT] Stat Laboratory Results 05/15/19 05/15/19 05/15/19 20:15 20:15 20:15 WBC 9.2 RBC 3.40 L Hgb 10.2 L Hct 32.7 L MCV 96.2 MCH 30.0 MCHC 31.2 L RDW Std Deviation 50.0 H RDW Coeff of Noe 14.4 Plt Count 225 MPV 9.2 Immature Gran % (Auto) 0.900 Neut % (Auto) 69.3 Lymph % (Auto) 21.3 [place] % (Auto) 7.4 Eos % (Auto) 0.8 Baso % (Auto) 0.3 Absolute Neuts (auto) 6.4 Absolute Lymphs (auto) 1.96 Nucleated RBC % 0 PT 13.3 INR 1.0 APTT 30.0 D-Dimer Quant (PE/DVT) 2.23 H* Specimen Type Sample Site pH Bicarbonate Actual POC Total CO2 Base Excess O2 Saturation ABG pCO2 ABG pO2 Michael Test O2 Delivery Device Liter Flow Blood Gas Notified Whom Blood Gas Notified Time Sodium 142 Potassium 3.2 L Chloride 106 Carbon Dioxide 29.0 Anion Gap 7 BUN 8 Creatinine 0.92 Estim Creat Clear Calc 54.00 Est GFR (MDRD) Af Amer 81 Est GFR (MDRD) Non-Af 67 BUN/Creatinine Ratio 8.7 L Glucose 89 Lactic Acid Calcium 8.0 L Total Bilirubin 0.40 AST 11 L ALT 11 L Alkaline Phosphatase 88 Troponin I < 0.015 Total Protein 5.5 L Albumin 2.2 L Globulin 3.3 Albumin/Globulin Ratio 0.7 L 05/15/19 05/15/19 20:15 20:49 WBC RBC Hgb Hct MCV MCH MCHC RDW Std Deviation RDW Coeff of Noe Plt Count MPV Immature Gran % (Auto) Neut % (Auto) Lymph % (Auto) Hartley % (Auto) Eos % (Auto) Baso % (Auto) Absolute Neuts (auto) Absolute Lymphs (auto) Nucleated RBC % PT INR APTT D-Dimer Quant (PE/DVT) Specimen Type ART Sample Site L Radial pH 7.49 H Bicarbonate Actual 25.1 POC Total CO2 26 Base Excess 2 O2 Saturation 94 L ABG pCO2 32.8 L ABG pO2 64 L Michael Test POS O2 Delivery Device Nasal Can Liter Flow 6.0 Blood Gas Notified Whom ED MD Blood Gas Notified Time 2042 Sodium Potassium Chloride Carbon Dioxide Anion Gap BUN Creatinine Estim Creat Clear Calc Est GFR (MDRD) Af Amer Est GFR (MDRD) Non-Af BUN/Creatinine Ratio Glucose Lactic Acid 1.1 Calcium Total Bilirubin AST ALT Alkaline Phosphatase Troponin I Total Protein Albumin Globulin Albumin/Globulin Ratio - EKG Initial EKG Interpretation: Sinus Tachycardia - Ventricular rate is 129. UT interval is 142 ms. QS duration 76 ms. QT duration is 304 ms. [place] is to the right. There is evidence of low voltage. - Medical Decision Making Since patient is tachycardic, tachypneic and hypoxic with pleuritic chest pain need to entertain possibility of pneumonia that was not visualized on initial x-ray, 3 days ago. Also need to consider pulmonary embolus. Work-up included EKG, chest x-ray and appropriate labs. CTA is negative for pulmonary embolus, dissection or any acute pulmonary process. ED Disposition - Plan for ED Patient: Disposition: Home or Assisted Living Diagnosis: Pleurisy, Sinus tachycardia by electrocardiogram, Dyspnea, History of COPD Instructions: Pleurisy Referrals: Jennifer Coelho, WOUND CARE RN-C [Primary Care Provider] - 1 Week if not improving
[2019-05-15 21:31] VITALS: BP 143/93; PULSE 122; RESP 15; O2SAT 93
[2019-05-15 22:40] VITALS: BP 151/84; PULSE 129; RESP 18; O2SAT 94
== END 2019-05-16 00:35 | disposition home or self-care (01) ==
PROVIDERS: Emergency Provider Emergency Medicine; Family Provider Nurse Practitioner Family; PCP Nurse Practitioner Family
DX: R09.1 Pleurisy (principal); R00.0 Tachycardia, unspecified; R06.00 Dyspnea, unspecified; J43.9 Emphysema, unspecified; E66.9 Obesity, unspecified; M79.7 Fibromyalgia; K51.90 Ulcerative colitis, unspecified, without complications; F32.9 Major depressive disorder, single episode, unspecified; J96.11 Chronic respiratory failure with hypoxia; I10 Essential (primary) hypertension; Z85.6 Personal history of leukemia; Z99.81 Dependence on supplemental oxygen; Z79.899 Other long term (current) drug therapy; Z87.891 Personal history of nicotine dependence
CPT/HCPCS: 36415; 36600; 71046; 71275; 80053; 82803; 83605; 84484; 85025; 85379; 85610; 85730; 93005; 99285; Q9967

== ENCOUNTER → 2019-08-14 13:48 | Outpatient (CLI) | payer MEDICAID, SELFPAY ==
[2019-07-15 13:07] VITALS: BMI 30.5
--- NOTE | 2019-08-14 13:50 | RAD_ITS ---
STUDY: X-RAY CHEST REASON FOR EXAM: Female, 58 years old. COPD, shortness of breath. TECHNIQUE: PA and lateral views of the chest. COMPARISON: 05/15/2019. FINDINGS: The lungs are slightly underexpanded with increased lucency over the mid-upper lung field suggestive of emphysema. There are bilateral basilar atelectasis with mild left effusion. There is no demonstrated pleural abnormality. There is mild cardiac enlargement. Normal mediastinum and sven. Normal visualized pulmonary arteries. There is atherosclerotic calcification of the aortic arch with tortuosity. There is demineralization of the osseous structures. There is degenerative osteoarthritis of the bilateral shoulders. There is no demonstrated abnormality of the visualized soft tissue structures of the upper abdomen. RAD/Chest PA and Lateral IMPRESSION: Bilateral basilar atelectasis with mild left effusion with underlying diffuse edema, overall stable study in the interval.. Electronically Signed: Paulette Barrios MD at 2:30 EST , Service support ,
[2019-08-14 15:29] LABS: Absolute Lymphocyte Count 0.87 X10^3/uL (0.83-4.51); Absolute Neutrophil Count 13.1 X10^3/uL (2.0-7.7); Basophil# 0.04 X10^3/uL; Basophil% 0.3 % (0-1); Eosinophil# 0.01 X10^3/uL; Eosinophils% 0.1 % (0-5); Hematocrit 34.9 % (37-47); Hemoglobin 10.7 g/dL (12.0-15.0); Lymphocyte # 0.87 X10^3/ul (4.0); Lymphocyte % 5.9 % (19-41); Mean Corp Hgb Conc 30.7 g/dL (32-36); Mean Corpuscular Hgb 28.5 pg (27.0-32.0); Mean Corpuscular Volume 93.1 fL (81-99); Mean Platelet Vol. 9.3 fl (6.2-12.0); Monocyte# 0.38 X10^3/uL; Monocyte% 2.6 % (0-10); NRBC Flagged by Analyzer 0 % (0-5); Neutrophil # 13.12 X10^3/uL (2.7-7.7); Neutrophil % 88.7 % (47-70); Platelet Count 248 K/mm3 (150-450); RBC Distribution Width CV 15.4 % (11.6-14.6); RBC Distribution Width SD 52.2 fl (35.1-43.9); Red Blood Count 3.75 M/mm3 (4.2-5.4); White Blood Count 14.8 K/mm3 (4.4-11.0)
[2019-08-14 15:58] LABS: ALB/GLOB Ratio 0.8 RATIO (0.9-2.4); AST(SGOT) 12 U/L (15-37); Alanine Aminotransfer ALT/SGPT 11 U/L (13-56); Albumin, Serum 2.5 g/dL (3.2-5.0); Alkaline Phosphatase 87 U/L (45-117); Anion Gap 7 (5-15); BUN 11 mg/dL (7-18); BUN/Creat Ratio 13.3 RATIO (10-20); Calcium,Total 7.3 mg/dL (8.5-10.1); Chloride 105 mmol/L (98-107); Creatinine, Serum 0.83 mg/dL (0.55-1.02); EST Glomerular Filtration Rate 76 mL/min (>60); Est Glom Filt Rate - Afr Amer 92 mL/min (>60); Globulin 3.3 g/dL (2.2-4.2); Glucose 145 mg/dL (74-106); Potassium 3.9 mmol/L (3.5-5.1); Protein, Total 5.8 g/dL (6.4-8.2); Sodium Level 141 mmol/L (136-145)
== END ==
PROVIDERS: Internal Medicine Hematology & Oncology; Family Provider Nurse Practitioner Family; PCP Nurse Practitioner Family; Referring Provider Internal Medicine Critical Care Medicine; Visit Provider Internal Medicine Critical Care Medicine
DX: C92.10 Chronic myeloid leukemia, BCR/ABL-positive, not having achieved remission (principal); J44.9 Chronic obstructive pulmonary disease, unspecified; Z79.899 Other long term (current) drug therapy
CPT/HCPCS: 36415; 71046; 80053; 85025

== ENCOUNTER 2019-10-05 08:13 | Inpatient (IN) | payer MEDICAID, SELFPAY ==
[2019-09-01 13:54] VITALS: BMI 32.3
[2019-10-05] VITALS (13 sets, daily range): BP systolic 115–155; BP diastolic 73–98; PULSE 104–129; RESP 12–25; TEMP 36.6–37.7; O2SAT 94–97; BMI 31.1; BMI 30.9; BMI 31.0
--- NOTE | 2019-10-05 08:25 | EKG12_ITS ---
Test Reason : DYSRHYTHMIA Blood Pressure : / mmHG Vent. Rate : 121 BPM Atrial Rate : 121 BPM P-R Int : 134 ms QRS Dur : 082 ms QT Int : 314 ms P-R-T Axes : 036 102 040 degrees QTc Int : 445 ms Sinus tachycardia Rightward axis Borderline ECG Confirmed by IVETT MURO, EMILIA ([id number]), tape editor ANGE TOUSSAINT ([id number]) on 10/07/2019 9:31:26 AM Referred By: Mart Jett Confirmed By:EMILIA ROOT MD
--- NOTE | 2019-10-05 08:30 | RAD_ITS ---
STUDY: X-RAY CHEST REASON FOR EXAM: Female, 58 years old. headache, head congestion, increased sob, TECHNIQUE: Single AP portable view of the chest. COMPARISON: 08/14/2019 FINDINGS: The lungs are clear and expanded. Small bilateral pleural effusions more prominent on the left side. Normal size heart. Normal mediastinum and sven. There is prominence of the pulmonary hilar arteries and peripheral pulmonary arteries, consistent with congestive heart failure (CHF). Normal visualized aortic arch and descending thoracic aorta. Normal visualized thoracic spine. Normal visualized ribs, clavicles, and shoulders. There is no demonstrated abnormality of the visualized soft tissue structures of the upper abdomen. RAD/Chest 1 View (Portable) IMPRESSION: Congestive heart failure is worse since the previous study. Electronically Signed: Jesse Harden, at 9:15 EST Tel , Service support ,
[2019-10-05] MEDS: MethylPREDNISolone 125 MG/2 ML Vial IV (08:38)
[2019-10-05] MEDS: Ipratropium/Albuterol Sulfate 3 ML AMPUL.NEB INHALATION ×2 (08:48→19:22)
[2019-10-05 08:58] LABS: Absolute Lymphocyte Count 2.96 X10^3/uL (0.83-4.51); Basophil# 0.02 X10^3/uL; Basophil% 0.1 % (0-1); Eosinophil# 0.03 X10^3/uL; Eosinophils% 0.2 % (0-5); Hematocrit 34.6 % (37-47); Hemoglobin 10.7 g/dL (12.0-15.0); Lymphocyte # 2.96 X10^3/ul (4.0); Lymphocyte % 20.8 % (19-41); Mean Corp Hgb Conc 30.9 g/dL (32-36); Mean Corpuscular Hgb 29.6 pg (27.0-32.0); Mean Corpuscular Volume 95.6 fL (81-99); Mean Platelet Vol. 8.7 fl (6.2-12.0); Monocyte# 1.19 X10^3/uL; Monocyte% 8.4 % (0-10); NRBC Flagged by Analyzer 0 % (0-5); Neutrophil # 9.96 X10^3/uL (2.7-7.7); Neutrophil % 70.1 % (47-70); Platelet Count 201 K/mm3 (150-450); Red Blood Count 3.62 M/mm3 (4.2-5.4); White Blood Count 14.2 K/mm3 (4.4-11.0)
[2019-10-05] MEDS: Albuterol 2.5 MG/3 ML VIAL.NEB. INHALATION ×3 (09:07→17:21)
[2019-10-05 09:13] LABS: ALB/GLOB Ratio 1.1 RATIO (0.9-2.4); AST(SGOT) 13 U/L (15-37); Alanine Aminotransfer ALT/SGPT 18 U/L (13-56); Albumin, Serum 3.1 g/dL (3.2-5.0); Alkaline Phosphatase 101 U/L (45-117); Anion Gap 3 (5-15); BUN 9 mg/dL (7-18); BUN/Creat Ratio 10.3 RATIO (10-20); Calcium,Total 8.7 mg/dL (8.5-10.1); Chloride 105 mmol/L (98-107); Creatinine, Serum 0.88 mg/dL (0.55-1.02); EST Glomerular Filtration Rate 71 mL/min (>60); Est Glom Filt Rate - Afr Amer 85 mL/min (>60); Estimated Creatinine Clearance 56.46 ml/min; Globulin 2.9 g/dL (2.2-4.2); Glucose 91 mg/dL (74-106); Potassium 4.2 mmol/L (3.5-5.1); Sodium Level 141 mmol/L (136-145)
--- NOTE | 2019-10-05 09:57 | CPS ---
Addendum entered and electronically signed by Jairo Nicole 10/05/19 17:28: Original Note: Addendum entered and electronically signed by Jairo Nicole 10/05/19 17:28: Pt. was ordered x3 Albuterol, but she refused 3rd dose Original Note: x2 Albuterol given as well
[2019-10-05] MEDS: levoFLOXacin IV 750 MG/150 ML BAG 100 MG IV (10:59)
[2019-10-05 11:04] LABS: Mucous, Urine 0 SEEN /hpf (<or=2+); Red Blood Cells-Urine 0 SEEN /hpf (0-5); White Blood Cells 0 SEEN /hpf (0-5)
[2019-10-05 11:11] LABS: Lactic Acid 1.2 mmol/L (0.4-1.9)
[2019-10-05 11:17] LABS: Color, Urine Yellow (Yellow); Glucose, Dipstick Normal (Normal); Ketone-Dipstick Negative (Negative); Leukocyte Esterase-Dipstick Negative /ul (Negative); Nitrite-Dipstick Negative (Negative); Occult Blood-Urine 10 /ul (Negative); Protein-Dipstick Negative (Negative); Urine Bilirubin Dipstick Negative (Negative); Urine Clarity Clear (Clear); Urine Urobilinogen Normal (Normal)
[2019-10-05 11:25] LABS: Bacteria RARE /hpf (None Seen); Squamous Epithelial Cells - UA 0-5 SEEN /hpf (5-10)
--- NOTE | 2019-10-05 13:02 | ED.VIS.GEN ---
History of Present Illness Chief Complaint: Shortness of Breath Informant: Patient Onset: Today Narrative: Presents the emergency department with a chief complaint of shortness of breath. She notes associated symptoms of headache nasal congestion and worsening breathing for several days. She has a long history of COPD. She wears 4 L of home oxygen chronically. She sees Dr. Ridley for pulmonology. She denies any fevers but does note some myalgias and chills. Past Medical History - Allergies and Home Meds Allergies/Adverse Reactions: Allergies ondansetron [From Zofran] Allergy (Severe, Verified 10/05/19 08:17) Anaphylaxis Penicillins Allergy (Severe, Verified 10/05/19 08:17) Hives azithromycin Adverse Reaction (Severe, Verified 10/05/19 08:17) Diarrhea codeine Adverse Reaction (Severe, Verified 10/05/19 08:17) Vomiting ondansetron HCl [From Zofran (as hydrochloride)] Adverse Reaction (Severe, Verified 10/05/19 08:17) Nausea pregabalin [From Lyrica] Adverse Reaction (Severe, Verified 10/05/19 08:17) i can't see propoxyphene napsylate [From Darvocet-N 100] Adverse Reaction (Severe, Verified 10/05/19 08:17) Vomiting Sulfa (Sulfonamide Antibiotics) Adverse Reaction (Intermediate, Verified 10/05/19 08:17) Hives Primary Care Physician: Jennifer Coelho NP-C [Primary Care Provider] - Surgical History: hysterectomy, - - Hemorrhoidectomy, 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 Smoking Status: Former smoker - Family History Maternal Family History: Family History (Last Reviewed 09/01/19 @ 13:51 by Pauline Parra) Mother Ovarian cancer Brother Heart disease Grandmother Heart disease Grandfather Heart disease Family History: Reports: - - mother with ovarian cancer; denies family history of any blood disorders or blood cancers Paternal Family History: Family History (Last Reviewed 09/01/19 @ 13:51 by Pauline Parra) Mother Ovarian cancer Brother Heart disease Grandmother Heart disease Grandfather Heart disease Family History: Reports: Diabetes, - - father was exposed from agent orange Review of Systems General: Reports: Chills, Malaise. Denies: Fever, Sweats Eyes: Denies: Visual changes - bilaterally, Diplopia ENT: Reports: Rhinorrhea. Denies: Left ear pain, Right ear pain, Sore throat Cardiovascular: Denies: Chest pain, Palpitations Respiratory: Reports: Dyspnea, Cough, Sputum, Dyspnea on exertion Gastrointestinal: Denies: Abdominal pain, Nausea, Vomiting, Diarrhea, Melena, Hematochezia Genitourinary: Denies: Dysuria, Hematuria, Frequency Musculoskeletal: Denies: Back pain, Extremity Pain Skin: Denies: Rash, Wounds Neurological: Denies: Headache, Weakness, Numbness Psych: Denies: Depression, Anxiety, Suicidal thoughts, Suicidal ideations Endocrine: Denies: Polyuria, Polydipsia, Heat intolerance, Cold intolerance Hematologic: Denies: Easy bruising, Easy bleeding, Lymphadenopathy Allergy: Denies: Uticaria, Swelling of the mouth, Swelling of the tongue Physical Exam Vital Signs/Narrative: Vital Signs Temp Pulse Resp BP Pulse Ox 10/05/19 12:17 99 F 118 H 18 122/74 H 95 10/05/19 11:35 99.5 F H 123 H 14 115/86 H 94 Inital Vital Signs reviewed: Yes General: Well nourished, Well developed, No Acute Distress Head: Normocephalic, Atraumatic Eyes: Perrl, EOMI ENT: Moist mucous membranes, Nasal congestion Neck: Supple, Nontender Cardiovascular: Regular rate, No murmurs, Tachycardia Respiratory: No distress, Chest nontender, Wheezing, Decreased Air Movement Abdomen: Soft, Nontender, Nondistended, Normal bowel sounds Back: Nontender, Normal Inspection Extremities: Nontender, No edema Skin: Normal color, No rash Neurological: Alert, Oriented x3, Cranial nerves II-XII grossly intact, Normal Strength, Normal Sensation Psychological: Normal affect, Normal Mood Diagnostic/Tx/Re-eval - EKG Initial EKG Interpretation: Sinus Tachycardia - EKG shows a sinus tachycardia at a rate of 121. There is no ectopy. - Medical Decision Making His white count is elevated at 14. Patient states that this does not surprise her as it has been elevated like this in the past. Chest x-ray I do not see any obvious infiltrate. RSV and influenza were negative. Patient received breathing treatments and Solu-Medrol. She continues to have significantly diminished breath sounds and tachycardia. She continues to have a increased work of breathing. Plan is admission. ED Disposition - Plan for ED Patient: Diagnosis: COPD with exacerbation, URI (upper respiratory infection) Referrals: Jennifer Coelho NP-C [Primary Care Provider] -
[2019-10-05] MEDS: ALPRAZolam 0.5 MG Tablet PO ×2 (15:51→22:59)
[2019-10-05] MEDS: dilTIAZem CD 240 MG Capsule PO (15:51)
[2019-10-05] MEDS: busPIRone 5 MG Tablet 10 MG PO ×2 (15:51→22:47)
[2019-10-05] MEDS: Fluticasone 0.05% 1 SPRAY NASAL.SRY 2 SPRAY NASAL (15:52)
[2019-10-05] MEDS: Sertraline 50 MG Tablet PO (17:13)
[2019-10-05] MEDS: Sertraline 50 MG Tablet 25 MG PO (17:13)
--- NOTE | 2019-10-05 17:30 | PCM.HP.STD ---
Problem List (1) Shortness of breath Status: Acute (2) Nonproductive cough Status: Acute History of Present Illness Date of Admission: 10/05/19 Chief Complaint: Shortness of breath, nonproductive cough The patient is a 58 year old F who was seen in the emergency room at [facility] with a chief complaint of increased shortness of breath over the last 2 days along with nonproductive cough, she denies any fevers, chills, but she does complain of sinus congestion and generalized headache. Patient has a history of COPD and is on 3 to 4 L via nasal cannula at all times. Work-up in the emergency room revealed her white blood cell count to be elevated at 14.2, chemistry profile was unremarkable, patient's hemoglobin was slightly low at 10.7. Her urinalysis was unremarkable. Chest x-ray was read out as showing congestive heart failure however, patient's presentation did not fit with congestive heart failure. Patient was given aerosol treatments in the emergency room and IV Solu-Medrol, in addition she was given IV Levaquin. Patient will be admitted to [place] [address] for exacerbation of COPD with presumed viral URI. Past Medical History Past Medical History (Chronic Problems): Chronic Problems (Last Reviewed 09/01/19 @ 13:51 by Pauline Parra) COPD with exacerbation (Chronic) PND (post-nasal drip) (Chronic) Essential hypertension (Chronic) Hypokalemia (Chronic) Fibromyalgia (Chronic) Nicotine abuse (Chronic) Stage 3 severe COPD by GOLD classification (Chronic) Chronic hypoxemic respiratory failure (Chronic) Ulcerative colitis (Chronic) Poor compliance with medication (Chronic) CML (chronic myelocytic leukemia) (Chronic) Emphysema of lung (Chronic) Medical History: Medical History (Last Reviewed 09/01/19 @ 13:51 by Pauline Parra) Tachycardia (Acute) R00.0 Essential hypertension (Chronic) I10 Hypokalemia (Chronic) E87.6 Fibromyalgia (Chronic) M79.7 Nicotine abuse (Chronic) Z72.0 Stage 3 severe COPD by GOLD classification (Chronic) J44.9 Chronic hypoxemic respiratory failure (Chronic) J96.11 Ulcerative colitis (Chronic) K51.90 Poor compliance with medication (Chronic) Z91.14 CML (chronic myelocytic leukemia) (Chronic) C92.10 Emphysema of lung (Chronic) J43.9 Abdominal pain, vomiting, and diarrhea R10.9, R11.10, R19.7 Carpal tunnel syndrome G56.00 Depression F32.9 DREW (generalized anxiety disorder) F41.1 Obesity (BMI 30.0-34.9) E66.9 Seasonal allergies J30.2 Acute gastroenteritis (Resolved) K52.9 RUQ pain (Resolved) R10.11 Sepsis (Resolved) A41.9 Allergies ondansetron [From Zofran] Allergy (Severe, Verified 10/05/19 14:48) Anaphylaxis Penicillins Allergy (Severe, Verified 10/05/19 14:48) Hives azithromycin Adverse Reaction (Severe, Verified 10/05/19 14:48) Diarrhea codeine Adverse Reaction (Severe, Verified 10/05/19 14:48) Vomiting ondansetron HCl [From Zofran (as hydrochloride)] Adverse Reaction (Severe, Verified 10/05/19 14:48) Nausea pregabalin [From Lyrica] Adverse Reaction (Severe, Verified 10/05/19 14:48) i can't see propoxyphene napsylate [From Darvocet-N 100] Adverse Reaction (Severe, Verified 10/05/19 14:48) Vomiting Sulfa (Sulfonamide Antibiotics) Adverse Reaction (Intermediate, Verified 10/05/19 14:48) Hives Home Medications: Ambulatory Orders Medication Instructions Recorded Albuterol Aerosols [Ventolin 2.5 mg INHALATION Q4H PRN PRN 10/18/18 Aerosols] Budesonide/Formoterol Fumarate 2 puff IH BID 10/18/18 [Symbicort 160-4.5 Mcg Inhaler] Diltiazem CD [Cardizem CD] 240 mg PO DAILY 10/18/18 Sertraline HCl [Zoloft] 50 mg PO DAILY 10/18/18 albuterol sulfate 90 mcg/actuation 2 puff INHALATION Q4H PRN PRN #18 g 01/14/19 aerosol inhaler fluticasone propionate 50 2 spray INTRANASAL DAILY g 04/14/19 mcg/actuation nasal spray,suspension potassium chloride 20 mEq 20 meq PO BID 04/14/19 tablet,extended release(part/cryst) fexofenadine 180 mg tablet 180 mg PO DAILY 04/15/19 omeprazole 40 mg capsule,delayed 40 mg PO DAILY 04/15/19 release oxycodone 5 mg tablet 5 mg PO TID PRN tab 04/15/19 sertraline 25 mg tablet 25 mg PO DAILY 04/15/19 alprazolam 0.5 mg tablet 0.5 mg PO Q6H PRN tab 07/15/19 buspirone 10 mg tablet 10 mg PO TID tab 07/15/19 prednisone 10 mg tablet 10 mg PO DAILY 07/15/19 prochlorperazine maleate 10 mg 10 mg PO Q6H PRN 07/15/19 tablet ipratropium-albuterol 0.5 mg-3 3 ml INHALATION Q6H PRN #180 ml 09/15/19 mg(2.5 mg base)/3 mL nebulization soln tiotropium bromide 2.5 2 puff INHALATION DAILY #4 g 09/16/19 mcg/actuation mist for inhalation Imatinib Mesylate [Gleevec] 400 mg PO DAILY 10/05/19 Surgical History: Surgical History (Last Reviewed 09/01/19 @ 13:51 by Pauline Parra) History of cardiac cath Z98.890 History of cataract extraction Z98.49 History of cranial surgery Z98.890 due to closed fontanell History of hemorrhoidectomy Z98.890 History of hysterectomy Z98.890, Z90.710 Surgical History: hysterectomy, - - Hemorrhoidectomy, 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 Psychiatric History: Anxiety CERTIFIED LOW VISION THERAPIST History: No pertinent CERTIFIED LOW VISION THERAPIST history Lives: Alone Smoking Status: Former smoker Tobacco Use: Non-smoker Alcohol: Rare Drugs: None - *Family History Maternal Family History: Family History (Last Reviewed 09/01/19 @ 13:51 by Pauline Parra) Mother Ovarian cancer Brother Heart disease Grandmother Heart disease Grandfather Heart disease History Items: - - mother with ovarian cancer; denies family history of any blood disorders or blood cancers Paternal Family History: Family History (Last Reviewed 09/01/19 @ 13:51 by Pauline Parra) Mother Ovarian cancer Brother Heart disease Grandmother Heart disease Grandfather Heart disease History Items: Diabetes, - - father was exposed from agent orange Review of Systems Constitutional: Denies: Anorexia, Chills, Fever, Night Sweats, Malaise, Weakness, Weight Change, Fatigue Eyes: Denies: Cataracts, Conjunctivae Inflammation, Double vision, Drainage HEENT: Denies: Difficulty Swallowing, Dysphasia, Ear Pain, Eye Pain, Hearing Changes, Nasal bleeding, Nasal Congestion, Post Nasal Drip Cardiovascular: Denies: Chest Pain, Claudication, Chest Pressure, Chest Tightness, Edema, Heaviness, Orthopnea, Palpitations Respiratory: Reports: Shortness of Breath, Shortness of breath at rest, Shortness of breath upon exertion, Wheezing. Denies: Cough, Hemoptysis, Pleuritic Pain, Sputum production Gastrointestinal: Denies: Abdominal Pain, Constipation, Diarrhea, Hematemesis, Hematochezia, Nausea, Melena, Vomiting Genitourinary: Denies: Dysuria, Frequency, Hematuria, Hesitancy, Incontinence, Nocturia, Urgency Gynecological: Denies: Breast symptoms Musculoskeletal: Denies: Back Pain, Foot Pain, Hand Pain, Joint Pain, Joint stiffness, Joint swelling, Joint Tenderness, Leg Pain Skin: Denies: Dryness, Jaundice, Pruritis, Rash Neurological: Denies: Balance problems, Blurred vision, Double vision, Slurred speech, Difficulty swallowing, Focal weakness, Headaches, Incoordination, Numbness, Tingling Psychiatric: Denies: Anxiety, Depression, Homicidal Ideations, Suicidal Ideations Endocrine: Denies: Change in Body Habitus, Heat/ Cold Intolerance, Polydipsia, Polyuria Hematologic/ Lymphatic: Denies: Adenopathy, Anemia, Easy Bruising, Easy Bleeding, Petechiae, Purpura VTE Information - Inpt Only VTE Present on Admission: No VTE Mechan Device Prophylaxis: None VTE Pharm Prophylaxis ordered?: Yes Patient Problems: Active and Suspected Problems (Last Reviewed 09/01/19 @ 13:51 by Pauline Parra) URI (upper respiratory infection) (Acute) Shortness of breath (Acute) Nonproductive cough (Acute) - Physical Exam Vitals/I&O's: Vital Signs Temp Pulse Resp BP Pulse Ox 98.8 F 108 H 12 155/98 H 97 10/05/19 14:20 10/05/19 17:23 10/05/19 17:23 10/05/19 14:20 10/05/19 17:23 Oxygen Flow Rate (L/min) 4 Oxygen Delivery Method Nasal Cannula Weight: 76.799 kg Body Mass Index (BMI) 30.9 Intake and Output for Last 24 Hours 10/03/19 10/04/19 10/05/19 23:59 23:59 23:59 Intake Total 150 / 150 Balance 150 / 150 General: Alert, Oriented x3, Cooperative, No apparent distress, Well developed, Well nourished HEENT: Atraumatic, PERRLA, EOMI, Normocephalic Oral: Moist Mucosa Neck: Supple, No JVD, Negative Carotid Bruits, Trachea Midline, Thyroid Normal Size and Texture Lungs: No rhonchi, No rales, Diminished, Wheezes - High-pitched scattered expiratory wheezes were noted bilaterally Cardiovascular: Regular rate, Regular Rhythm, Normal S1, Normal S2, No murmurs, PMI Normal, No rub noted, No Gallop Abdomen: Bowel Sounds Present, Soft, Non Tender, Non-Distended, No hernias noted Extremities: No cyanosis, Capillary Refill Less than 3 Seconds, Edema - Mild pretibial edema which is +1 pitting is noted bilaterally Skin: No rashes, No breakdown Musculoskeletal: No Tenderness to Palpation of Joints or Extremities Neurological: Cranial nerves II-XII grossly intact, Neuro grossly intact, Muscle tone normal, Sensory exam intact to light touch and pain Psych/Mental Status: Normal Affect, Appropriate, Alert and oriented to time, place, person, mood and affect Microbiology Past 72 Hours 10/05/19 08:50 Mucosa - Nasopharyngeal Rapid RSV (DFA) - Final 10/05/19 08:50 Mucosa - Nasopharyngeal Influenza Types A,B Direct FA (BLACK) - Final Laboratory Results 10/05/19 08:50: WBC 14.2 H, RBC 3.62 L, Hgb 10.7 L, Hct 34.6 L, MCV 95.6, MCH 29.6, MCHC 30.9 L, RDW Std Deviation 53.0 H, RDW Coeff of Noe 15.0 H, Plt Count 201, MPV 8.7, Immature Gran % (Auto) 0.400, Neut % (Auto) 70.1 H, Lymph % (Auto) 20.8, Wilkin % (Auto) 8.4, Eos % (Auto) 0.2, Baso % (Auto) 0.1, Absolute Neuts (auto) 10.0 H, Absolute Lymphs (auto) 2.96, Nucleated RBC % 0 10/05/19 08:50: Sodium 141, Potassium 4.2, Chloride 105, Carbon Dioxide 33.0 H, Anion Gap 3 L, BUN 9, Creatinine 0.88, Estim Creat Clear Calc 56.46, Est GFR (MDRD) Af Amer 85, Est GFR (MDRD) Non-Af 71, BUN/Creatinine Ratio 10.3, Glucose 91, Calcium 8.7, Total Bilirubin 0.20, AST 13 L, ALT 18, Alkaline Phosphatase 101, Total Protein 6.0 L, Albumin 3.1 L, Globulin 2.9, Albumin/Globulin Ratio 1.1 10/05/19 10:30: Troponin I < 0.015 10/05/19 10:30: Lactic Acid 1.2 10/05/19 10:58: Urine Color Yellow, Urine Clarity Clear, Urine pH 8.0, Ur Specific [place] 1.010, Urine Protein Negative, Urine Glucose (UA) Normal, Urine Ketones Negative, Urine Occult Blood 10 H, Urine Nitrite Negative, Urine Bilirubin Negative, Urine Urobilinogen Normal, Ur Leukocyte Esterase Negative, Urine RBC 0 SEEN, Urine WBC 0 SEEN, Ur Squamous Epith Cells 0-5 SEEN, Urine Bacteria RARE, Urine Mucus 0 SEEN Current Medications Acetaminophen (Tylenol) 650 mg PO Q6H PRN PRN PRN Reason: Pain Score 1-3/Temp > 100.7 F Albuterol Sulfate (Ventolin Aerosols) 2.5 mg INHALATION Q4H PRN PRN PRN Reason: SOB &/OR WHEEZING Last Admin: 10/05/19 17:21 Dose: 2.5 mg Documented by: Albuterol/Ipratropium (Duoneb) 3 ml INHALATION Q6H.RT [facility] Alprazolam (Xanax) 0.5 mg PO Q6H PRN PRN Reason: ANXIETY Last Admin: 10/05/19 15:51 Dose: 0.5 mg Documented by: Balsalazide (Balsalazide Disodium) 750 mg PO TID [facility] Buspirone HCl (Buspar) 10 mg PO TID [facility] Last Admin: 10/05/19 15:51 Dose: 10 mg Documented by: Cefdinir (Omnicef [Equiv]) 300 mg PO Q12 [facility] Diltiazem HCl (Cardizem Cd) 240 mg PO DAILY [facility] Last Admin: 10/05/19 15:51 Dose: 240 mg Documented by: Fluticasone Propionate (Flonase Nasal [place]) 2 spray NASAL DAILY [facility] Last Admin: 10/05/19 15:52 Dose: 2 spray Documented by: Heparin Sodium (Porcine) (Heparin Na) 5,000 unit SC Q12 [facility] Sodium Chloride () 250 mls @ 15 mls/hr IV .[id number] PRN PRN Reason: Additional IVPB Infusion Imatinib Mesylate (Gleevec) 400 mg PO DAILY [facility] Methylprednisolone (Solu-Medrol) 40 mg IV Q8 [facility] Oxycodone HCl (Oxyir) 5 mg PO TID PRN PRN Reason: Pain Score 1-10/10 Pantoprazole Sodium (Protonix) 40 mg PO DAILY [facility] Potassium Chloride (K-Dur) 20 meq PO BIDCM [facility] Last Admin: 10/05/19 15:51 Dose: 20 meq Documented by: Sertraline HCl (Zoloft) 25 mg PO DAILY [facility] Last Admin: 10/05/19 17:13 Dose: 25 mg Documented by: Sertraline HCl (Zoloft) 50 mg PO DAILY [facility] Last Admin: 10/05/19 17:13 Dose: 50 mg Documented by: Sodium Chloride () 10 - 40 ml IV UD PRN PRN Reason: SALINE FLUSH Assessment/Plan All Active Problems (Last Reviewed 09/01/19 @ 13:51 by Pauline Parra) URI (upper respiratory infection) (Acute) Shortness of breath (Acute) Nonproductive cough (Acute) Tachycardia (Acute) Acute gastroenteritis (Resolved) RUQ pain (Resolved) Sepsis (Resolved) #1 acute exacerbation of COPD-patient will be admitted to [facility] 3, she will be given IV corticosteroids and aggressive aerosol treatments #2 viral URI-respiratory panel will be obtained, I have decided to place the patient on Omnicef for empiric treatment of sinus infection #3 chronic hypoxic respiratory failure-O2 sat will be monitored #4 chronic myelocytic leukemia #5 essential hypertension #6 fibromyalgia #7 bibasilar scarring and atelectasis as noted on CTA of her chest 05/15/2019 Code Visit Inpatient E&M: 54998 Init Hosp L3
[2019-10-05] MEDS: Cefdinir 300 MG Capsule PO (22:47)
[2019-10-05] MEDS: 0.9% Saline Lock 10 ML Syringe IV (22:51)
[2019-10-06] VITALS (12 sets, daily range): BP systolic 112–148; BP diastolic 54–95; PULSE 99–111; RESP 18–20; TEMP 36.6–36.9; O2SAT 94–96
[2019-10-06] MEDS: Ipratropium/Albuterol Sulfate 3 ML AMPUL.NEB INHALATION ×4 (01:30→19:55)
[2019-10-06] MEDS: busPIRone 5 MG Tablet 10 MG PO ×3 (06:03→21:03)
[2019-10-06] MEDS: ALPRAZolam 0.5 MG Tablet PO ×2 (06:03→21:03)
[2019-10-06] MEDS: 0.9% Saline Lock 10 ML Syringe IV ×3 (06:03→20:56)
[2019-10-06] MEDS: Fluticasone 0.05% 1 SPRAY NASAL.SRY 2 SPRAY NASAL (09:02)
[2019-10-06] MEDS: Pantoprazole Sodium 40 MG Tablet PO (09:03)
[2019-10-06] MEDS: Heparin Injection (Vial) 5,000 UNIT/ML VIAL 5000 UNIT SC ×2 (09:03→21:03)
[2019-10-06] MEDS: Cefdinir 300 MG Capsule PO ×2 (09:03→21:03)
[2019-10-06] MEDS: Sertraline 50 MG Tablet 25 MG PO (09:04)
[2019-10-06] MEDS: dilTIAZem CD 240 MG Capsule PO (09:08)
[2019-10-06] MEDS: Sertraline 50 MG Tablet PO (09:09)
--- NOTE | 2019-10-06 11:33 | CASEMGMT ---
Addendum entered by Irina Lyles 10/06/19 14:28: REGINALD received call from Chaya at [facility]. Chaya states that pt's CM through [facility] has been trying to get pt additional help in the home but it has been difficult finding staffing in the area. REGINALD updated Chaya that at this time the plan is for pt to return home at discharge at this time and denies HHC. Original Note: Social Work Note REGINALD reviewed notes, and per previous notes pt was active with [facility]iative [facility]. REGINALD placed a call to [facility] and pt is still active with Palliative Care. REGINALD left message for Chaya updating her that pt is at [facility]. Irina Lyles NUCLEAR POWERPLANT MECHANIC, AIR HAMMER OPERATOR
--- NOTE | 2019-10-06 12:49 | CASEMGMT ---
RN [facility]ERNON Assessment Presentation: COPD exacerbation. Viral URI. Intro role of CM and purpose of RN CM assessment to patient in room. Pt is awake, alert and able to participate in assessment. Demographics, PCP and Pharmacy verified. Pt lives alone in apartment. States she had aide services through [facility] until 3 weeks ago. They are attempting to staff aide services again. PCP: [facility]- Jennifer Coelho Preferred Pharmacy: [email or web address] Insurance: [employer] Prescription Benefit: yes LNOK: uncleJoshua Living Arrangements: Lives in handicap accessible apartment alone. Pt states she bathes at sink and is able to manage at home alone. Once she has aide services resumed, they will assist with home care, meals and ADL's. Transportation: Pt's uncle, or CM assists with transportation. DME: raised toilet seat, grab bars, rollator, nebulizer, and home oxygen 4LPM/DASCO. Pt states has concentrator and portability. HHC/SNF: [facility] past for fdc and home aides. Not active now. [facility] Waiver services: Bridget Willoughby CM . Per patient, she does not have aide services now, but [facility]ERNON is working on scheduling new agency. Palliative Care: pt is active with Palliative Care. Patient DC goals: Home. DC PLAN: Home. pt states her uncle can drive her home, and ESTEPHANIA JUNIOR let pt know to have uncle bring portable tank for dc. Antelmo GREGORYN ESTEPHANIA ACM
[2019-10-06] MEDS: BALSALAZIDE DISODIUM 750 MG CAPSULE PO (15:47)
--- NOTE | 2019-10-06 16:28 | PN_ITS ---
Patient Problems: Active and Suspected Problems (Last Reviewed 09/01/19 @ 13:51 by Pauline Parra) URI (upper respiratory infection) (Acute) Shortness of breath (Acute) Nonproductive cough (Acute) Reason for Visit: COPD exacerbation Vitals/I&O's: Vital Signs Temp Pulse Resp BP Pulse Ox 98.2 F 107 H 18 126/92 H 94 10/06/19 14:50 10/06/19 14:50 10/06/19 14:50 10/06/19 14:50 10/06/19 14:50 Oxygen Flow Rate (L/min) 4 Oxygen Delivery Method Nasal Cannula Weight: 169 lb 5 oz Body Mass Index (BMI) 30.9 Intake and Output for Last 24 Hours 10/04/19 10/05/19 10/06/19 23:59 23:59 23:59 Intake Total 650 / 650 350 / 350 Balance 650 / 650 350 / 350 General: Alert, Oriented x3, Cooperative HEENT: Atraumatic, PERRLA, EOMI, Normocephalic Neck: Supple, No JVD, Negative Carotid Bruits Lungs: Rhonchi, Short of Breath Cardiovascular: Regular rate, Regular Rhythm, Normal S1, Normal S2, No murmurs Abdomen: Bowel Sounds Present, Soft, Non Tender, Non-Distended Extremities: No edema, Capillary Refill Less than 3 Seconds Skin: No rashes, No breakdown Musculoskeletal: No Tenderness to Palpation of Joints or Extremities, Arthritic Changes Neurological: Cranial nerves II-XII grossly intact, Deep Tendon Reflexes 2+/4 and Symmetrical, Neuro grossly intact Psych/Mental Status: Normal Affect, Appropriate Microbiology Past 72 Hours 10/06/19 12:50 Mucosa - Nasopharyngeal Respiratory Panel (PCR) - Preliminary 10/05/19 08:50 Mucosa - Nasopharyngeal Rapid RSV (DFA) - Final 10/05/19 08:50 Mucosa - Nasopharyngeal Influenza Types A,B Direct FA (BLACK) - Final Current Medications Acetaminophen (Tylenol) 650 mg PO Q6H PRN PRN PRN Reason: Pain Score 1-3/Temp > 100.7 F Albuterol Sulfate (Ventolin Aerosols) 2.5 mg INHALATION Q4H PRN PRN PRN Reason: SOB &/OR WHEEZING Last Admin: 10/05/19 17:21 Dose: 2.5 mg Documented by: Albuterol/Ipratropium (Duoneb) 3 ml INHALATION Q6H.RT [facility] Last Admin: 10/06/19 12:55 Dose: 3 ml Documented by: Alprazolam (Xanax) 0.5 mg PO Q6H PRN PRN Reason: ANXIETY Last Admin: 10/06/19 06:03 Dose: 0.5 mg Documented by: Balsalazide (Balsalazide Disodium) 750 mg PO TID [facility] Last Admin: 10/06/19 15:47 Dose: 750 mg Documented by: Buspirone HCl (Buspar) 10 mg PO TID [facility] Last Admin: 10/06/19 15:53 Dose: 10 mg Documented by: Cefdinir (Omnicef [Equiv]) 300 mg PO Q12 [facility] Last Admin: 10/06/19 09:03 Dose: 300 mg Documented by: Diltiazem HCl (Cardizem Cd) 240 mg PO DAILY [facility] Last Admin: 10/06/19 09:08 Dose: 240 mg Documented by: Fluticasone Propionate (Flonase Nasal [place]) 2 spray NASAL DAILY [facility] Last Admin: 10/06/19 09:02 Dose: 2 spray Documented by: Heparin Sodium (Porcine) (Heparin Na) 5,000 unit SC Q12 [facility] Last Admin: 10/06/19 09:03 Dose: 5,000 unit Documented by: Sodium Chloride () 250 mls @ 15 mls/hr IV .[id number] PRN PRN Reason: Additional IVPB Infusion Imatinib Mesylate (Gleevec) 400 mg PO 1600 [facility] Last Admin: 10/06/19 15:48 Dose: 400 mg Documented by: Methylprednisolone (Solu-Medrol) 40 mg IV Q8 [facility] Last Admin: 10/06/19 15:47 Dose: 40 mg Documented by: Nutritional Formula (Lactose Free) (Ensure Enlive) 120 ml PO 4X/DAY [facility] Last Admin: 10/06/19 15:54 Dose: Not Given Documented by: Oxycodone HCl (Oxyir) 5 mg PO TID PRN PRN Reason: Pain Score 1-10/10 Pantoprazole Sodium (Protonix) 40 mg PO DAILY [facility] Last Admin: 10/06/19 09:03 Dose: 40 mg Documented by: Potassium Chloride (K-Dur) 20 meq PO BIDCM [facility] Last Admin: 10/06/19 15:49 Dose: 20 meq Documented by: Sertraline HCl (Zoloft) 25 mg PO DAILY [facility] Last Admin: 10/06/19 09:04 Dose: 25 mg Documented by: Sertraline HCl (Zoloft) 50 mg PO DAILY [facility] Last Admin: 10/06/19 09:09 Dose: 50 mg Documented by: Sodium Chloride () 10 - 40 ml IV UD PRN PRN Reason: SALINE FLUSH Last Admin: 10/06/19 15:47 Dose: 10 ml Documented by: STROKE Vital Signs/Narrative: Vital Signs Temp Pulse Resp BP Pulse Ox 10/06/19 14:50 98.2 F 107 H 18 126/92 H 94 10/06/19 14:00 107 H 10/06/19 13:18 104 H 20 H Medical Necessity - Tobacco Use Smoking Status: Former smoker Tobacco Use: Non-smoker Assessment/Plan All Active Problems (Last Reviewed 09/01/19 @ 13:51 by Pauline Parra) URI (upper respiratory infection) (Acute) Shortness of breath (Acute) Nonproductive cough (Acute) Tachycardia (Acute) Acute gastroenteritis (Resolved) RUQ pain (Resolved) Sepsis (Resolved) This a 59 question female was admitted with progressive worsening of shortness of breath for last 2 days with nonproductive cough. Patient denies fever or chills. Patient has history of COPD and is on 3 to 4 L of oxygen through nasal cannula and follows Dr. Ridley. Chest x-ray in ER reported as congestive heart failure but patient's clinical presentation not consistent with heart failure. #1 acute exacerbation of COPD-patient was admitted in MedSurg floor. On bronchodilator DuoNeb, IV Solu-Medrol, incentive spirometry, chest physiotherapy and oxygen therapy. If needed, BiPAP at night or for rescue therapy during daytime. #2 viral URI- Respiratory panel preliminary is reported negative. #3 chronic hypoxic respiratory failure currently on 4 L of oxygen #4 chronic myelocytic leukemia #5 essential hypertension #6 fibromyalgia #7 bibasilar scarring and atelectasis as noted on CTA of her chest 05/15/2019 Clinical Impression(s) from Imaging Studies Chest X-Ray 10/05/19 08:30 IMPRESSION: Congestive heart failure is worse since the previous study. Microbiology Past 72 Hours 10/06/19 12:50 Mucosa - Nasopharyngeal Respiratory Panel (PCR) - Preliminary 10/05/19 08:50 Mucosa - Nasopharyngeal Rapid RSV (DFA) - Final 10/05/19 08:50 Mucosa - Nasopharyngeal Influenza Types A,B Direct FA (BLACK) - Final Code Visit Inpatient E&M: 33337 Subs Hosp L3
[2019-10-06] MEDS: oxyCODONE 5 MG Tablet PO (18:18)
[2019-10-07] VITALS (9 sets, daily range): BP systolic 115–142; BP diastolic 79–87; PULSE 88–104; RESP 16–22; TEMP 36.8–37.3; O2SAT 92–95
[2019-10-07] MEDS: Ipratropium/Albuterol Sulfate 3 ML AMPUL.NEB INHALATION ×5 (01:40→20:14)
[2019-10-07 05:31] LABS: Absolute Lymphocyte Count 0.58 X10^3/uL (0.83-4.51); Absolute Neutrophil Count 11.4 X10^3/uL (2.0-7.7); Basophil# 0.01 X10^3/uL; Basophil% 0.1 % (0-1); Hematocrit 30.9 % (37-47); Hemoglobin 9.7 g/dL (12.0-15.0); Lymphocyte # 0.58 X10^3/ul (4.0); Lymphocyte % 4.6 % (19-41); Mean Corp Hgb Conc 31.4 g/dL (32-36); Mean Corpuscular Hgb 29.5 pg (27.0-32.0); Mean Corpuscular Volume 93.9 fL (81-99); Monocyte# 0.37 X10^3/uL; NRBC Flagged by Analyzer 0 % (0-5); Neutrophil # 11.44 X10^3/uL (2.7-7.7); Neutrophil % 91.6 % (47-70); POSITIVE DIFFERENTIAL YES; Platelet Count 231 K/mm3 (150-450); RBC Distribution Width CV 15.2 % (11.6-14.6); RBC Distribution Width SD 52.7 fl (35.1-43.9); Red Blood Count 3.29 M/mm3 (4.2-5.4); White Blood Count 12.5 K/mm3 (4.4-11.0)
[2019-10-07] MEDS: busPIRone 5 MG Tablet 10 MG PO ×3 (05:39→21:52)
[2019-10-07] MEDS: 0.9% Saline Lock 10 ML Syringe IV ×2 (05:40→17:46)
[2019-10-07] MEDS: oxyCODONE 5 MG Tablet PO ×3 (05:49→21:53)
[2019-10-07] MEDS: ALPRAZolam 0.5 MG Tablet PO ×2 (05:49→13:04)
[2019-10-07 05:54] LABS: Anion Gap 5 (5-15); BUN 19 mg/dL (7-18); BUN/Creat Ratio 20.2 RATIO (10-20); Calcium,Total 8.4 mg/dL (8.5-10.1); Chloride 108 mmol/L (98-107); Creatinine, Serum 0.94 mg/dL (0.55-1.02); EST Glomerular Filtration Rate 65 mL/min (>60); Est Glom Filt Rate - Afr Amer 79 mL/min (>60); Estimated Creatinine Clearance 52.85 ml/min; Glucose 152 mg/dL (74-106); Potassium 4.1 mmol/L (3.5-5.1); Sodium Level 143 mmol/L (136-145)
[2019-10-07 06:08] LABS: Differential Indicated SCAN CRITERIA MET
[2019-10-07 06:34] LABS: Platelet Estimate ADEQUATE (ADEQ); Red Cell Morphology N CHROM NORMAL (NORM C&C)
[2019-10-07 06:35] LABS: Anisocytosis RARE; Macrocytosis RARE; Ovalocyte RARE
[2019-10-07] MEDS: Fluticasone 0.05% 1 SPRAY NASAL.SRY 2 SPRAY NASAL (08:46)
[2019-10-07] MEDS: Sertraline 50 MG Tablet 25 MG PO (08:46)
[2019-10-07] MEDS: Heparin Injection (Vial) 5,000 UNIT/ML VIAL 5000 UNIT SC ×2 (08:46→21:53)
[2019-10-07] MEDS: Pantoprazole Sodium 40 MG Tablet PO (08:47)
[2019-10-07] MEDS: Cefdinir 300 MG Capsule PO ×2 (08:47→21:52)
[2019-10-07] MEDS: dilTIAZem CD 240 MG Capsule PO (08:47)
[2019-10-07] MEDS: Acetaminophen 325 MG Tablet 650 MG PO (08:47)
[2019-10-07] MEDS: Sertraline 50 MG Tablet PO (08:48)
--- NOTE | 2019-10-07 10:31 | PCM.PN.HOSP ---
Patient Problems: Active and Suspected Problems (Last Reviewed 09/01/19 @ 13:51 by Pauline Parra) URI (upper respiratory infection) (Acute) Shortness of breath (Acute) Nonproductive cough (Acute) Reason for Visit: COPD exacerbation. Patient is still short of breath. Has mild cough. Hemodynamically stable. No high-grade fever. Vitals/I&O's: Vital Signs Temp Pulse Resp BP Pulse Ox 98.2 F 97 20 H 119/80 94 10/07/19 09:04 10/07/19 09:04 10/07/19 09:04 10/07/19 09:04 10/07/19 09:04 Oxygen Flow Rate (L/min) 4 Oxygen Delivery Method Nasal Cannula Weight: 169 lb 5 oz Body Mass Index (BMI) 30.9 Intake and Output for Last 24 Hours 10/05/19 10/06/19 10/07/19 23:59 23:59 23:59 Intake Total 650 / 650 350 / 650 400 / 400 Balance 650 / 650 350 / 650 400 / 400 General: Alert, Oriented x3, Cooperative HEENT: Atraumatic, PERRLA, EOMI, Normocephalic, - - Left eye drooping, chronic Oral: No Gingival or Mucosal Lesions/ Ulcerations, Dry Mucosa Neck: Supple, No JVD, Negative Carotid Bruits Lungs: Diminished - Air entry severely diminished in all lung rodríguez., Rhonchi, Short of Breath Cardiovascular: Regular rate, No murmurs Abdomen: Bowel Sounds Present, Soft, Non Tender, Non-Distended Extremities: Capillary Refill Less than 3 Seconds, Edema Skin: No rashes, No breakdown Musculoskeletal: No Tenderness to Palpation of Joints or Extremities, Arthritic Changes Neurological: Cranial nerves II-XII grossly intact Psych/Mental Status: Normal Affect, Appropriate Microbiology Past 72 Hours 10/05/19 10:40 Blood Culture (Wb) - Right Hand Blood Culture - Preliminary No growth in 48 hours. 10/05/19 10:30 Blood Culture (Wb) - Anticubital Left Blood Culture - Preliminary No growth in 48 hours. 10/06/19 12:50 Mucosa - Nasopharyngeal Respiratory Panel (PCR) - Final 10/05/19 08:50 Mucosa - Nasopharyngeal Rapid RSV (DFA) - Final 10/05/19 08:50 Mucosa - Nasopharyngeal Influenza Types A,B Direct FA (BLACK) - Final Laboratory Results 10/07/19 05:10: WBC 12.5 H, RBC 3.29 L, Hgb 9.7 L, Hct 30.9 L, MCV 93.9, MCH 29.5, MCHC 31.4 L, RDW Std Deviation 52.7 H, RDW Coeff of Noe 15.2 H, Plt Count 231, MPV 9.0, Immature Gran % (Auto) 0.700, Neut % (Auto) 91.6 H, Lymph % (Auto) 4.6 L, [place] % (Auto) 3.0, Eos % (Auto) 0.0, Baso % (Auto) 0.1, Absolute Neuts (auto) 11.4 H, Absolute Lymphs (auto) 0.58 L, Nucleated RBC % 0, Differential Comment SEE COMMENT, Platelet Estimate ADEQUATE, RBC Morphology N CHROM, Anisocytosis RARE, Macrocytosis RARE, Ovalocytes RARE 10/07/19 05:10: Sodium 143, Potassium 4.1, Chloride 108 H, Carbon Dioxide 30.0, Anion Gap 5, BUN 19 H, Creatinine 0.94, Estim Creat Clear Calc 52.85, Est GFR (MDRD) Af Amer 79, Est GFR (MDRD) Non-Af 65, BUN/Creatinine Ratio 20.2 H, Glucose 152 H, Calcium 8.4 L Current Medications Acetaminophen (Tylenol) 650 mg PO Q6H PRN PRN PRN Reason: Pain Score 1-3/Temp > 100.7 F Last Admin: 10/07/19 08:47 Dose: 650 mg Documented by: Albuterol Sulfate (Ventolin Aerosols) 2.5 mg INHALATION Q4H PRN PRN PRN Reason: SOB &/OR WHEEZING Last Admin: 10/05/19 17:21 Dose: 2.5 mg Documented by: Albuterol/Ipratropium (Duoneb) 3 ml INHALATION Q6H.RT [facility] Last Admin: 10/07/19 07:41 Dose: 3 ml Documented by: Alprazolam (Xanax) 0.5 mg PO Q6H PRN PRN Reason: ANXIETY Last Admin: 10/07/19 05:49 Dose: 0.5 mg Documented by: Balsalazide (Balsalazide Disodium) 750 mg PO TID [facility] Last Admin: 10/07/19 05:16 Dose: Not Given Documented by: Buspirone HCl (Buspar) 10 mg PO TID [facility] Last Admin: 10/07/19 05:39 Dose: 10 mg Documented by: Cefdinir (Omnicef [Equiv]) 300 mg PO Q12 [facility] Last Admin: 10/07/19 08:47 Dose: 300 mg Documented by: Diltiazem HCl (Cardizem Cd) 240 mg PO DAILY [facility] Last Admin: 10/07/19 08:47 Dose: 240 mg Documented by: Fluticasone Propionate (Flonase Nasal [place]) 2 spray NASAL DAILY [facility] Last Admin: 10/07/19 08:46 Dose: 2 spray Documented by: Heparin Sodium (Porcine) (Heparin Na) 5,000 unit SC Q12 [facility] Last Admin: 10/07/19 08:46 Dose: 5,000 unit Documented by: Sodium Chloride () 250 mls @ 15 mls/hr IV .[id number] PRN PRN Reason: Additional IVPB Infusion Imatinib Mesylate (Gleevec) 400 mg PO 1600 [facility] Last Admin: 10/06/19 15:48 Dose: 400 mg Documented by: Methylprednisolone (Solu-Medrol) 40 mg IV Q8 [facility] Last Admin: 10/07/19 05:39 Dose: 40 mg Documented by: Nutritional Formula (Lactose Free) (Ensure Enlive) 120 ml PO 4X/DAY [facility] Last Admin: 10/07/19 08:48 Dose: Not Given Documented by: Oxycodone HCl (Oxyir) 5 mg PO TID PRN PRN Reason: Pain Score 1-10/10 Last Admin: 10/07/19 05:49 Dose: 5 mg Documented by: Pantoprazole Sodium (Protonix) 40 mg PO DAILY [facility] Last Admin: 10/07/19 08:47 Dose: 40 mg Documented by: Potassium Chloride (K-Dur) 20 meq PO BIDCM [facility] Last Admin: 10/07/19 08:47 Dose: 20 meq Documented by: Sertraline HCl (Zoloft) 25 mg PO DAILY [facility] Last Admin: 10/07/19 08:46 Dose: 25 mg Documented by: Sertraline HCl (Zoloft) 50 mg PO DAILY [facility] Last Admin: 10/07/19 08:48 Dose: 50 mg Documented by: Sodium Chloride () 10 - 40 ml IV UD PRN PRN Reason: SALINE FLUSH Last Admin: 10/07/19 05:40 Dose: 10 ml Documented by: STROKE Vital Signs/Narrative: Vital Signs Temp Pulse Resp BP Pulse Ox 10/07/19 09:04 98.2 F 97 20 H 119/80 94 10/07/19 07:41 96 22 H 95 Medical Necessity - Tobacco Use Smoking Status: Former smoker Tobacco Use: Non-smoker Assessment/Plan All Active Problems (Last Reviewed 09/01/19 @ 13:51 by Pauline Parra) URI (upper respiratory infection) (Acute) Shortness of breath (Acute) Nonproductive cough (Acute) Tachycardia (Acute) Acute gastroenteritis (Resolved) RUQ pain (Resolved) Sepsis (Resolved) This a 59 question female was admitted with progressive worsening of shortness of breath for last 2 days with nonproductive cough. Patient denies fever or chills. Patient has history of COPD and is on 3 to 4 L of oxygen through nasal cannula and follows Dr. Ridley. Chest x-ray in ER reported as congestive heart failure but patient's clinical presentation not consistent with heart failure. #1 acute exacerbation of COPD-patient was admitted in MedSurg floor. On bronchodilator DuoNeb, IV Solu-Medrol, incentive spirometry, chest physiotherapy and oxygen therapy. If needed, BiPAP at night or for rescue therapy during daytime. Blood cultures x2 are negative for 48 hours. Respiratory panel is negative. 10/07: Patient still needs COPD treatment as mentioned above. BiPAP rescue therapy. #2 viral URI- #3 chronic hypoxic respiratory failure currently on 4 L of oxygen #4 chronic myelocytic leukemia #5 essential hypertension: Home medications continued. #6 fibromyalgia #7 bibasilar scarring and atelectasis as noted on CTA of her chest 05/15/2019 Clinical Impression(s) from Imaging Studies Chest X-Ray 10/05/19 08:30 IMPRESSION: Congestive heart failure is worse since the previous study. Microbiology Past 72 Hours 10/05/19 10:40 Blood Culture (Wb) - Right Hand Blood Culture - Preliminary No growth in 48 hours. 10/05/19 10:30 Blood Culture (Wb) - Anticubital Left Blood Culture - Preliminary No growth in 48 hours. 10/06/19 12:50 Mucosa - Nasopharyngeal Respiratory Panel (PCR) - Final 10/05/19 08:50 Mucosa - Nasopharyngeal Rapid RSV (DFA) - Final 10/05/19 08:50 Mucosa - Nasopharyngeal Influenza Types A,B Direct FA (BLACK) - Final Laboratory Results 10/07/19 05:10: WBC 12.5 H, RBC 3.29 L, Hgb 9.7 L, Hct 30.9 L, MCV 93.9, MCH 29.5, MCHC 31.4 L, RDW Std Deviation 52.7 H, RDW Coeff of Noe 15.2 H, Plt Count 231, MPV 9.0, Immature Gran % (Auto) 0.700, Neut % (Auto) 91.6 H, Lymph % (Auto) 4.6 L, [place] % (Auto) 3.0, Eos % (Auto) 0.0, Baso % (Auto) 0.1, Absolute Neuts (auto) 11.4 H, Absolute Lymphs (auto) 0.58 L, Nucleated RBC % 0, Differential Comment SEE COMMENT, Platelet Estimate ADEQUATE, RBC Morphology N CHROM, Anisocytosis RARE, Macrocytosis RARE, Ovalocytes RARE 10/07/19 05:10: Sodium 143, Potassium 4.1, Chloride 108 H, Carbon Dioxide 30.0, Anion Gap 5, BUN 19 H, Creatinine 0.94, Estim Creat Clear Calc 52.85, Est GFR (MDRD) Af Amer 79, Est GFR (MDRD) Non-Af 65, BUN/Creatinine Ratio 20.2 H, Glucose 152 H, Calcium 8.4 L Code Visit Inpatient E&M: 70763 Subs Hosp L2
[2019-10-08] VITALS (9 sets, daily range): BP systolic 127–149; BP diastolic 79–96; PULSE 94–114; RESP 16–20; TEMP 36.6–36.9; O2SAT 94–97
[2019-10-08] MEDS: 0.9% Saline Lock 10 ML Syringe IV ×5 (00:09→18:06)
[2019-10-08] MEDS: busPIRone 5 MG Tablet 10 MG PO ×3 (05:07→21:37)
[2019-10-08] MEDS: oxyCODONE 5 MG Tablet PO ×2 (05:08→13:06)
[2019-10-08] MEDS: Ipratropium/Albuterol Sulfate 3 ML AMPUL.NEB INHALATION ×4 (06:59→20:30)
[2019-10-08] MEDS: Cefdinir 300 MG Capsule PO ×2 (09:11→21:37)
[2019-10-08] MEDS: Fluticasone 0.05% 1 SPRAY NASAL.SRY 2 SPRAY NASAL (09:11)
[2019-10-08] MEDS: Heparin Injection (Vial) 5,000 UNIT/ML VIAL 5000 UNIT SC (09:11)
[2019-10-08] MEDS: Pantoprazole Sodium 40 MG Tablet PO (09:12)
[2019-10-08] MEDS: dilTIAZem CD 240 MG Capsule PO (09:12)
[2019-10-08] MEDS: Sertraline 50 MG Tablet PO (09:13)
[2019-10-08] MEDS: Sertraline 50 MG Tablet 25 MG PO (09:13)
[2019-10-08] MEDS: ALPRAZolam 0.5 MG Tablet PO (13:06)
--- NOTE | 2019-10-08 14:37 | PCM.PN.HOSP ---
Patient Problems: Active and Suspected Problems (Last Reviewed 09/01/19 @ 13:51 by Pauline Parra) URI (upper respiratory infection) (Acute) Shortness of breath (Acute) Nonproductive cough (Acute) Reason for Visit: COPD exacerbation. Shortness of breath slightly improved. Still gets short of breath and tachycardia on mild exertion. Vitals/I&O's: Vital Signs Temp Pulse Resp BP Pulse Ox 97.9 F 114 H 20 H 149/85 H 95 10/08/19 09:00 10/08/19 11:15 10/08/19 11:15 10/08/19 09:00 10/08/19 09:00 Oxygen Flow Rate (L/min) 4 Oxygen Delivery Method Nasal Cannula Weight: 169 lb 5 oz Body Mass Index (BMI) 30.9 Intake and Output for Last 24 Hours 10/06/19 10/07/19 10/08/19 23:59 23:59 23:59 Intake Total 350 / 650 1650 / 1750 150 / 150 Balance 350 / 650 1650 / 1750 150 / 150 General: Alert, Oriented x3, Cooperative HEENT: Atraumatic, PERRLA, EOMI, Normocephalic Neck: Supple, No JVD, Negative Carotid Bruits Lungs: No rhonchi, No wheeze, No rales, Diminished, Rhonchi Cardiovascular: Regular rate, Regular Rhythm, Normal S1, Normal S2, No murmurs Abdomen: Bowel Sounds Present, Soft, Non Tender, Non-Distended Extremities: Capillary Refill Less than 3 Seconds, Edema Skin: No rashes, No breakdown Musculoskeletal: No Tenderness to Palpation of Joints or Extremities, Arthritic Changes Neurological: Cranial nerves II-XII grossly intact, Deep Tendon Reflexes 2+/4 and Symmetrical, Neuro grossly intact Psych/Mental Status: Normal Affect, Appropriate Microbiology Past 72 Hours 10/05/19 10:40 Blood Culture (Wb) - Right Hand Blood Culture - Preliminary No growth in 48 hours. 10/05/19 10:30 Blood Culture (Wb) - Anticubital Left Blood Culture - Preliminary No growth in 48 hours. 10/06/19 12:50 Mucosa - Nasopharyngeal Respiratory Panel (PCR) - Final Current Medications Acetaminophen (Tylenol) 650 mg PO Q6H PRN PRN PRN Reason: Pain Score 1-3/Temp > 100.7 F Last Admin: 10/07/19 08:47 Dose: 650 mg Documented by: Albuterol Sulfate (Ventolin Aerosols) 2.5 mg INHALATION Q4H PRN PRN PRN Reason: SOB &/OR WHEEZING Last Admin: 10/05/19 17:21 Dose: 2.5 mg Documented by: Albuterol/Ipratropium (Duoneb) 3 ml INHALATION Q4HWA.RT [facility] Last Admin: 10/08/19 11:15 Dose: 3 ml Documented by: Alprazolam (Xanax) 0.5 mg PO Q6H PRN PRN Reason: ANXIETY Last Admin: 10/08/19 13:06 Dose: 0.5 mg Documented by: Balsalazide (Balsalazide Disodium) 750 mg PO TID [facility] Last Admin: 10/08/19 13:00 Dose: Not Given Documented by: Buspirone HCl (Buspar) 10 mg PO TID [facility] Last Admin: 10/08/19 13:01 Dose: 10 mg Documented by: Cefdinir (Omnicef [Equiv]) 300 mg PO Q12 [facility] Last Admin: 10/08/19 09:11 Dose: 300 mg Documented by: Diltiazem HCl (Cardizem Cd) 240 mg PO DAILY [facility] Last Admin: 10/08/19 09:12 Dose: 240 mg Documented by: Fluticasone Propionate (Flonase Nasal [place]) 2 spray NASAL DAILY [facility] Last Admin: 10/08/19 09:11 Dose: 2 spray Documented by: Heparin Sodium (Porcine) (Heparin Na) 5,000 unit SC Q12 [facility] Last Admin: 10/08/19 09:11 Dose: 5,000 unit Documented by: Sodium Chloride () 250 mls @ 15 mls/hr IV .[id number] PRN PRN Reason: Additional IVPB Infusion Imatinib Mesylate (Gleevec) 400 mg PO 1600 [facility] Last Admin: 10/07/19 16:28 Dose: 400 mg Documented by: Methylprednisolone (Solu-Medrol) 40 mg IV Q6 [facility] Last Admin: 10/08/19 13:00 Dose: 40 mg Documented by: Oxycodone HCl (Oxyir) 5 mg PO TID PRN PRN Reason: Pain Score 1-10/10 Last Admin: 10/08/19 13:06 Dose: 5 mg Documented by: Pantoprazole Sodium (Protonix) 40 mg PO DAILY [facility] [place] Last Admin: 10/08/19 09:12 Dose: 40 mg Documented by: Potassium Chloride (K-Dur) 20 meq PO BIDCM [facility] Last Admin: 10/08/19 09:10 Dose: 20 meq Documented by: Sertraline HCl (Zoloft) 25 mg PO DAILY [facility] Last Admin: 10/08/19 09:13 Dose: 25 mg Documented by: Sertraline HCl (Zoloft) 50 mg PO DAILY [facility] Last Admin: 10/08/19 09:13 Dose: 50 mg Documented by: Sodium Chloride () 10 - 40 ml IV UD PRN PRN Reason: SALINE FLUSH Last Admin: 10/08/19 13:00 Dose: 10 ml Documented by: STROKE Vital Signs/Narrative: Vital Signs Pulse Resp 10/08/19 11:15 114 H 20 H Medical Necessity - Tobacco Use Smoking Status: Former smoker Tobacco Use: Non-smoker Assessment/Plan All Active Problems (Last Reviewed 09/01/19 @ 13:51 by Pauline Parra) URI (upper respiratory infection) (Acute) Shortness of breath (Acute) Nonproductive cough (Acute) Tachycardia (Acute) Acute gastroenteritis (Resolved) RUQ pain (Resolved) Sepsis (Resolved) This a 59 question female was admitted with progressive worsening of shortness of breath for last 2 days with nonproductive cough. Patient denies fever or chills. Patient has history of COPD and is on 3 to 4 L of oxygen through nasal cannula and follows Dr. Ridley. Chest x-ray in ER reported as congestive heart failure but patient's clinical presentation not consistent with heart failure. #1 acute exacerbation of COPD-patient was admitted in MedSur floor. On bronchodilator DuoNeb, IV Solu-Medrol, incentive spirometry, chest physiotherapy and oxygen therapy. If needed, BiPAP at night or for rescue therapy during daytime. Blood cultures x2 are negative for 48 hours. Respiratory panel is negative. 10/07: Patient still needs COPD treatment as mentioned above. BiPAP rescue therapy. 10/08: Patient has home health therapy. Discussion with watch case polisher for DuoNeb treatment and oxygen therapy. #2 viral URI-patient respiratory panel, RSV are negative. #3 chronic hypoxic respiratory failure currently on 4 L of oxygen #4 chronic myelocytic leukemia: Stable. #5 essential hypertension: Home medications continued. #6 fibromyalgia #7 bibasilar scarring and atelectasis as noted on CTA of her chest 05/15/2019 Clinical Impression(s) from Imaging Studies Chest X-Ray 10/05/19 08:30 IMPRESSION: Congestive heart failure is worse since the previous study. Microbiology Past 72 Hours 10/05/19 10:40 Blood Culture (Wb) - Right Hand Blood Culture - Preliminary No growth in 48 hours. 10/05/19 10:30 Blood Culture (Wb) - Anticubital Left Blood Culture - Preliminary No growth in 48 hours. 10/06/19 12:50 Mucosa - Nasopharyngeal Respiratory Panel (PCR) - Final Code Visit Inpatient E&M: 65831 Subs Hosp L2
[2019-10-08] MEDS: Acetaminophen 325 MG Tablet 650 MG PO (18:14)
[2019-10-09] MEDS: oxyCODONE 5 MG Tablet PO ×2 (00:12→10:29)
[2019-10-09] MEDS: 0.9% Saline Lock 10 ML Syringe IV ×3 (00:12→12:54)
[2019-10-09 01:30] VITALS: PULSE 100; RESP 18
[2019-10-09] MEDS: Albuterol 2.5 MG/3 ML VIAL.NEB. INHALATION (01:30)
[2019-10-09 04:02] VITALS: BP 133/75; PULSE 94; RESP 20; TEMP 36.9; O2SAT 95
[2019-10-09] MEDS: busPIRone 5 MG Tablet 10 MG PO (06:25)
[2019-10-09] MEDS: Ipratropium/Albuterol Sulfate 3 ML AMPUL.NEB INHALATION ×2 (07:32→10:51)
[2019-10-09 07:34] VITALS: PULSE 95; RESP 22; O2SAT 96
[2019-10-09] MEDS: ALPRAZolam 0.5 MG Tablet PO (09:00)
[2019-10-09] MEDS: Acetaminophen 325 MG Tablet 650 MG PO (09:00)
[2019-10-09] MEDS: Cefdinir 300 MG Capsule PO (10:15)
[2019-10-09] MEDS: Fluticasone 0.05% 1 SPRAY NASAL.SRY 2 SPRAY NASAL (10:16)
[2019-10-09] MEDS: Pantoprazole Sodium 40 MG Tablet PO (10:18)
[2019-10-09] MEDS: Sertraline 50 MG Tablet PO (10:19)
[2019-10-09] MEDS: dilTIAZem CD 240 MG Capsule PO (10:19)
[2019-10-09] MEDS: Sertraline 50 MG Tablet 25 MG PO (10:24)
[2019-10-09 10:31] VITALS: BP 158/103; PULSE 98; RESP 20; TEMP 36.9; O2SAT 98
[2019-10-09 10:53] VITALS: PULSE 102; RESP 20
--- NOTE | 2019-10-09 11:20 | DCINST_ITS ---
- Discharge Diagnoses Current Active Problems: Current Active and Chronic Problems (Last Reviewed 09/01/19 @ 13:51 by Pauline Parra) COPD with exacerbation (Chronic) URI (upper respiratory infection) (Acute) Shortness of breath (Acute) Nonproductive cough (Acute) You will use the following diet at home:: Cardiac Your food should be the consistency of: Regular Discharge Activity: May Not Drive Call your doctor if you observe: Fever of 101 or Higher, Numbness or Tingling, Inability to urinate, Inability to have a bowel movement, Shortness of breath, Dizziness, Fainting spells, Swelling in the ankles, Chest pain, Prolonged hiccoughing, Increased palpitations (irregular heartbeat), Calf discomfort, Uncontrolled pain Allergies/Adverse Reactions: Allergies ondansetron [From Zofran] Allergy (Severe, Verified 10/05/19 14:48) Anaphylaxis Penicillins Allergy (Severe, Verified 10/05/19 14:48) Hives azithromycin Adverse Reaction (Severe, Verified 10/05/19 14:48) Diarrhea codeine Adverse Reaction (Severe, Verified 10/05/19 14:48) Vomiting ondansetron HCl [From Zofran (as hydrochloride)] Adverse Reaction (Severe, Verified 10/05/19 14:48) Nausea pregabalin [From Lyrica] Adverse Reaction (Severe, Verified 10/05/19 14:48) i can't see propoxyphene napsylate [From Darvocet-N 100] Adverse Reaction (Severe, Verified 10/05/19 14:48) Vomiting Sulfa (Sulfonamide Antibiotics) Adverse Reaction (Intermediate, Verified 10/05/19 14:48) Hives Medications to take at Discharge Albuterol Aerosols [Ventolin Aerosols] 2.5 mg INHALATION Q4H PRN PRN 10/18/18 Budesonide/Formoterol Fumarate [Symbicort 160-4.5 Mcg Inhaler] 2 puff IH BID 10/18/18 Diltiazem CD [Cardizem CD] 240 mg PO DAILY 10/18/18 Sertraline HCl [Zoloft] 50 mg PO DAILY 10/18/18 albuterol sulfate 90 mcg/actuation aerosol inhaler 2 puff INHALATION Q4H PRN PRN #18 g 01/14/19 fluticasone propionate 50 mcg/actuation nasal spray,suspension 2 spray INTRANASAL DAILY g 04/14/19 potassium chloride 20 mEq tablet,extended release(part/cryst) 20 meq PO BID 04/14/19 fexofenadine 180 mg tablet 180 mg PO DAILY 04/15/19 omeprazole 40 mg capsule,delayed release 40 mg PO DAILY 04/15/19 oxycodone 5 mg tablet 5 mg PO TID PRN tab 04/15/19 sertraline 25 mg tablet 25 mg PO DAILY 04/15/19 alprazolam 0.5 mg tablet 0.5 mg PO Q6H PRN tab 07/15/19 buspirone 10 mg tablet 10 mg PO TID tab 07/15/19 prochlorperazine maleate 10 mg tablet 10 mg PO Q6H PRN 07/15/19 ipratropium-albuterol 0.5 mg-3 mg(2.5 mg base)/3 mL nebulization soln 3 ml INHALATION Q6H PRN #180 ml 09/15/19 tiotropium bromide 2.5 mcg/actuation mist for inhalation 2 puff INHALATION DAILY #4 g 09/16/19 Imatinib Mesylate [Gleevec] 400 mg PO DAILY 10/05/19 Ipratropium/Albuterol Sulfate [Duoneb] 3 ml INHALATION [id number] #50 ampul.neb 10/09/19 Prednisone 10 mg PO UD #42 tab 10/09/19 The following prescriptions were given: Ipratropium/Albuterol Sulfate [Duoneb] 3 ml INHALATION [id number] #50 ampul.neb Transmission Status: Pending to [facility] Prednisone 10 mg PO UD #42 tab Prescription Printed Primary Care Physician: Jennifer Coelho NP-C [Primary Care Provider] - Please follow up with your Primary Care Physician in: in 2 weeks Test Results: Test results from this visit will be discussed in further detail at your follow- up appointment, if applicable. Please Follow Up With: Brenden Ridley MD When: Bridget Hernandez NP-C in 2 weeks
--- NOTE | 2019-10-09 11:22 | DS.PCM_ITS ---
Discharge Date and Diagnosis - Problem List Patient Problems: Active and Suspected Problems (Last Reviewed 09/01/19 @ 13:51 by Pauline Parra) URI (upper respiratory infection) (Acute) Shortness of breath (Acute) Nonproductive cough (Acute) Date of Admission: 10/05/19 Date of Discharge: 10/09/19 - Primary Discharge Diagnosis Active and Suspected Problems (Last Reviewed 09/01/19 @ 13:51 by Pauline Parra) URI (upper respiratory infection) (Acute) Shortness of breath (Acute) Nonproductive cough (Acute) - Secondary Discharge Diagnosis Chronic Problems (Last Reviewed 09/01/19 @ 13:51 by Pauline Parra) COPD with exacerbation (Chronic) PND (post-nasal drip) (Chronic) Essential hypertension (Chronic) Hypokalemia (Chronic) Fibromyalgia (Chronic) Nicotine abuse (Chronic) Stage 3 severe COPD by GOLD classification (Chronic) Chronic hypoxemic respiratory failure (Chronic) Ulcerative colitis (Chronic) Poor compliance with medication (Chronic) CML (chronic myelocytic leukemia) (Chronic) Emphysema of lung (Chronic) Hospital Course and Treatment Operations: None Summary of Care Provided: This a 58 question female was admitted with progressive worsening of shortness of breath for last 2 days with nonproductive cough. Patient denies fever or chills. Patient has history of COPD and is on 3 to 4 L of oxygen through nasal cannula and follows Dr. Ridley. Chest x-ray in ER reported as congestive heart failure but patient's clinical presentation not consistent with heart failure. #1 acute exacerbation of COPD-patient was admitted in [facility] floor. On bronchodilator DuoNeb, IV Solu-Medrol, incentive spirometry, chest physiotherapy and oxygen therapy. If needed, BiPAP at night or for rescue therapy during daytime. Blood cultures x2 are negative for 48 hours. Respiratory panel is negative. 10/07: Patient still needs COPD treatment as mentioned above. BiPAP rescue therapy. 10/08: Patient has home health therapy. Discussion with shelter case manager for DuoNeb treatment and oxygen therapy. 10/09: Patient breathing status is on baseline. Patient had PFT done in July 2017 which showed severe large airways obstructive defect with symmetric reduction of diffusion capacity with slight worsening compared to previous study in May 2016. 6-minute walk test in March 2018 reviewed. Shows 3 L of nasal cannula at rest but was increased to 4 L with exertion. Discussed with the shelter case manager. Prescription for DuoNeb and tapering dose of prednisone given. #2 viral URI-patient respiratory panel, RSV are negative. #3 chronic hypoxic respiratory failure currently on 4 L of oxygen #4 chronic myelocytic leukemia: Stable. #5 essential hypertension: Home medications continued. #6 fibromyalgia #7 bibasilar scarring and atelectasis as noted on CTA of her chest 05/15/2019 Discharge medication reconciliation done. Discharge follow-up instructions completed. Discharge process discussed with the patient and all questions were answered to patient's satisfaction. Total time spent, exact 35 minutes on discharge meds reconciliation, examination, review of imaging and blood test and discussion with the patient on follow-up instructions. Microbiology Past 72 Hours 10/05/19 10:40 Blood Culture (Wb) - Right Hand Blood Culture - Preliminary No growth in 48 hours. 10/05/19 10:30 Blood Culture (Wb) - Anticubital Left Blood Culture - Preliminary No growth in 48 hours. 10/06/19 12:50 Mucosa - Nasopharyngeal Respiratory Panel (PCR) - Final Clinical Impression(s) from Imaging Studies Chest X-Ray 10/05/19 08:30 IMPRESSION: Congestive heart failure is worse since the previous study. Patient Problems: Active and Suspected Problems (Last Reviewed 09/01/19 @ 13:51 by Pauline Parra) URI (upper respiratory infection) (Acute) Shortness of breath (Acute) Nonproductive cough (Acute) Subjective: Patient breathing status is on baseline. Patient still has wheezing on auscultation but that is normal for her. Gets easily short of breath and tachycardia on exertion; her baseline - Physical Exam Vitals/I&O's: Vital Signs Temp Pulse Resp BP Pulse Ox 98.4 F 102 H 20 H 158/103 H 98 10/09/19 10:31 10/09/19 10:53 10/09/19 10:53 10/09/19 10:31 10/09/19 10:31 Oxygen Flow Rate (L/min) 4 Oxygen Delivery Method Nasal Cannula Weight: 169 lb 5 oz Body Mass Index (BMI) 30.9 Intake and Output for Last 24 Hours 10/07/19 10/08/19 10/09/19 23:59 23:59 23:59 Intake Total 1650 / 1750 550 / 550 Output Total 300 / 300 300 / 300 Balance 1650 / 1750 250 / 250 -300 / -300 General: Alert, Oriented x3, Cooperative HEENT: Atraumatic, PERRLA, EOMI, Normocephalic Neck: Supple, No JVD, Negative Carotid Bruits Lungs: Diminished, Rhonchi, Wheezes Cardiovascular: Regular rate, Regular Rhythm, Normal S1, Normal S2, No murmurs Abdomen: Bowel Sounds Present, Soft, Non Tender, Non-Distended Extremities: No edema, Capillary Refill Less than 3 Seconds Skin: No rashes, No breakdown Musculoskeletal: No Tenderness to Palpation of Joints or Extremities, Arthritic Changes Neurological: Cranial nerves II-XII grossly intact Psych/Mental Status: Normal Affect, Appropriate Microbiology Past 72 Hours 10/05/19 10:40 Blood Culture (Wb) - Right Hand Blood Culture - Preliminary No growth in 48 hours. 10/05/19 10:30 Blood Culture (Wb) - Anticubital Left Blood Culture - Preliminary No growth in 48 hours. 10/06/19 12:50 Mucosa - Nasopharyngeal Respiratory Panel (PCR) - Final Current Medications Acetaminophen (Tylenol) 650 mg PO Q6H PRN PRN PRN Reason: Pain Score 1-3/Temp > 100.7 F Last Admin: 10/09/19 09:00 Dose: 650 mg Documented by: Albuterol Sulfate (Ventolin Aerosols) 2.5 mg INHALATION Q4H PRN PRN PRN Reason: SOB &/OR WHEEZING Last Admin: 10/09/19 01:30 Dose: 2.5 mg Documented by: Albuterol/Ipratropium (Duoneb) 3 ml INHALATION Q4HWA.RT [facility] Last Admin: 10/09/19 10:51 Dose: 3 ml Documented by: Alprazolam (Xanax) 0.5 mg PO Q6H PRN PRN Reason: ANXIETY Last Admin: 10/09/19 09:00 Dose: 0.5 mg Documented by: Balsalazide (Balsalazide Disodium) 750 mg PO TID [facility] Last Admin: 10/09/19 06:24 Dose: Not Given Documented by: Buspirone HCl (Buspar) 10 mg PO TID [facility] Last Admin: 10/09/19 06:25 Dose: 10 mg Documented by: Cefdinir (Omnicef [Equiv]) 300 mg PO Q12 [facility] Last Admin: 10/09/19 10:15 Dose: 300 mg Documented by: Diltiazem HCl (Cardizem Cd) 240 mg PO DAILY [facility] Last Admin: 10/09/19 10:19 Dose: 240 mg Documented by: Fluticasone Propionate (Flonase Nasal [place]) 2 spray NASAL DAILY [facility] Last Admin: 10/09/19 10:16 Dose: 2 spray Documented by: Heparin Sodium (Porcine) (Heparin Na) 5,000 unit SC Q12 [facility] Last Admin: 10/09/19 10:16 Dose: Not Given Documented by: Sodium Chloride () 250 mls @ 15 mls/hr IV .[id number] PRN PRN Reason: Additional IVPB Infusion Imatinib Mesylate (Gleevec) 400 mg PO 1600 [facility] Last Admin: 10/08/19 15:19 Dose: 400 mg Documented by: Methylprednisolone (Solu-Medrol) 40 mg IV Q6 [facility] Last Admin: 10/09/19 06:29 Dose: 40 mg Documented by: Oxycodone HCl (Oxyir) 5 mg PO TID PRN PRN Reason: Pain Score 1-10/10 Last Admin: 10/09/19 10:29 Dose: 5 mg Documented by: Pantoprazole Sodium (Protonix) 40 mg PO DAILY [facility] Last Admin: 10/09/19 10:18 Dose: 40 mg Documented by: Potassium Chloride (K-Dur) 20 meq PO BIDCM [facility] Last Admin: 10/09/19 08:57 Dose: 20 meq Documented by: Sertraline HCl (Zoloft) 25 mg PO DAILY [facility] Last Admin: 10/09/19 10:24 Dose: 25 mg Documented by: Sertraline HCl (Zoloft) 50 mg PO DAILY [facility] Last Admin: 10/09/19 10:19 Dose: 50 mg Documented by: Sodium Chloride () 10 - 40 ml IV UD PRN PRN Reason: SALINE FLUSH Last Admin: 10/09/19 06:24 Dose: 10 ml Documented by: Discharge Activity: May Not Drive Call your doctor if you observe: Fever of 101 or Higher, Numbness or Tingling, Inability to urinate, Inability to have a bowel movement, Shortness of breath, Dizziness, Fainting spells, Swelling in the ankles, Chest pain, Prolonged hiccoughing, Increased palpitations (irregular heartbeat), Calf discomfort, U ncontrolled pain Home Medications: Medications to take at Discharge Albuterol Aerosols [Ventolin Aerosols] 2.5 mg INHALATION Q4H PRN PRN 10/18/18 Budesonide/Formoterol Fumarate [Symbicort 160-4.5 Mcg Inhaler] 2 puff IH BID 10/18/18 Diltiazem CD [Cardizem CD] 240 mg PO DAILY 10/18/18 Sertraline HCl [Zoloft] 50 mg PO DAILY 10/18/18 albuterol sulfate 90 mcg/actuation aerosol inhaler 2 puff INHALATION Q4H PRN PRN #18 g 01/14/19 fluticasone propionate 50 mcg/actuation nasal spray,suspension 2 spray INTRANASAL DAILY g 04/14/19 potassium chloride 20 mEq tablet,extended release(part/cryst) 20 meq PO BID 04/14/19 fexofenadine 180 mg tablet 180 mg PO DAILY 04/15/19 omeprazole 40 mg capsule,delayed release 40 mg PO DAILY 04/15/19 oxycodone 5 mg tablet 5 mg PO TID PRN tab 04/15/19 sertraline 25 mg tablet 25 mg PO DAILY 04/15/19 alprazolam 0.5 mg tablet 0.5 mg PO Q6H PRN tab 07/15/19 buspirone 10 mg tablet 10 mg PO TID tab 07/15/19 prochlorperazine maleate 10 mg tablet 10 mg PO Q6H PRN 07/15/19 ipratropium-albuterol 0.5 mg-3 mg(2.5 mg base)/3 mL nebulization soln 3 ml INHALATION Q6H PRN #180 ml 09/15/19 tiotropium bromide 2.5 mcg/actuation mist for inhalation 2 puff INHALATION DAILY #4 g 09/16/19 Imatinib Mesylate [Gleevec] 400 mg PO DAILY 10/05/19 Ipratropium/Albuterol Sulfate [Duoneb] 3 ml INHALATION [id number] #50 ampul.neb 10/09/19 Prednisone 10 mg PO UD #42 tab 10/09/19 Following Prescrptions Were Given to Patient: Ipratropium/Albuterol Sulfate [Duoneb] 3 ml INHALATION [id number] #50 ampul.neb Transmission Status: Received by ERICA VELAZQUEZ Prednisone 10 mg PO UD #42 tab Prescription Printed Primary Care Physician: Jennifer Coelho NP-C [Primary Care Provider] - Please follow up with your Primary Care Physician in: in 2 weeks Please Follow Up With: Brenden Ridley MD When: Bridget Hernandez NP-C in 2 weeks Medical Necessity - Tobacco Use Smoking Status: Former smoker Tobacco Use: Non-smoker Meaningful Use Info Meaningful Use Diagnoses (Choose all that apply): None applicable Code Visit Inpatient E&M: 92095 Disch Hosp
--- NOTE | 2019-10-09 11:33 | CASEMGMT ---
Social Work Note Pt is discharging home today. REGINALD placed a call to [facility] and left message for RYAN Cunningham and updated her that pt will be discharged home today. REGINALD faxed discharge paperwork to [facility]. Irina Lyles FILM COATER, ROBOTICS SOFTWARE ENGINEER
[2019-10-09 13:07] VITALS: BP 149/88; PULSE 109; RESP 18; TEMP 36.6; O2SAT 98
--- NOTE | 2019-10-10 12:41 | CASEMGMT ---
ESTEPHANIA JUNIOR DC PHONE CALL DC DATE: 10/09/2019 DC Disposition: Home Diagnosis on Discharge: URI LACE/STRATA: 144 Intro role of CM to patient at home. Pt states she is doing well, understands her instructions and medications. No concerns at this time. Pt states she anticipates no difficulty following up with physician. Antelmo WERNER RN AC
== END 2019-10-09 14:08 | disposition home or self-care (01) | DRG 140 ==
LOC: ED 12:46 → MS3 13:23
PROVIDERS: Admitting Provider Internal Medicine; Emergency Provider Emergency Medicine; Family Provider Nurse Practitioner Family; PCP Nurse Practitioner Family; Referring Provider Internal Medicine; Visit Provider Internal Medicine
DX: J44.1 Chronic obstructive pulmonary disease with (acute) exacerbation (principal); Z99.81 Dependence on supplemental oxygen; Z87.891 Personal history of nicotine dependence; J96.11 Chronic respiratory failure with hypoxia; C92.10 Chronic myeloid leukemia, BCR/ABL-positive, not having achieved remission; I10 Essential (primary) hypertension; M79.7 Fibromyalgia; J06.9 Acute upper respiratory infection, unspecified; J98.11 Atelectasis
CPT/HCPCS: 36415; 71045; 80048; 80053; 81001; 83605; 84484; 85025; 87040; 87633; 87804; 87807; 93005; 94640; 94667; 94668; 99251; 99285; J7030; A4216; G0463

== ENCOUNTER 2019-10-22 09:37 | Observation (INO) | payer MEDICAID, SELFPAY ==
[2019-10-05 14:26] VITALS: BMI 30.9
[2019-10-22] VITALS (17 sets, daily range): BP systolic 117–149; BP diastolic 68–89; PULSE 98–130; RESP 12–20; TEMP 36.6–37.1; O2SAT 91–99; BMI 31.4; BMI 29.9
--- NOTE | 2019-10-22 09:42 | EKG12_ITS ---
Test Reason : RIGHT FLANK PAIN/SOB Blood Pressure : / mmHG Vent. Rate : 120 BPM Atrial Rate : 120 BPM P-R Int : 134 ms QRS Dur : 086 ms QT Int : 328 ms P-R-T Axes : 040 100 056 degrees QTc Int : 463 ms Sinus tachycardia with Premature atrial complexes Possible Right ventricular hypertrophy Nonspecific T wave abnormality Abnormal ECG Confirmed by SURYA MURO, JEISON ([id number]), editor house organ JAY VILLATORO ([id number]) on 10/24/2019 10:01:14 AM Referred By: Marleni Rea Confirmed By:EROS LONDON MD
--- NOTE | 2019-10-22 09:45 | CT_ITS ---
STUDY: CTA CHEST REASON FOR EXAM: Female, 58 years old. SOB/BACK PAIN -- HX- CML LEUKEMIA, HTN,COPD,EMPHYSEMA RADIATION DOSAGE (If Supplied By Facility): CTDIvol = ( 12.03 ) mGy, DLP = ( 356.24 ) mGycm TECHNIQUE: The examination was performed with the intravenous administration of 100CC ISOVUE 370. Post-processing of the angiographic images was performed, with multiplanar reformation and 3D reconstruction. Individualized dose optimization techniques were used for this CT. COMPARISON: Comparison is made with prior examination May 15, 2019. FINDINGS: Normal enhancement of the main pulmonary artery and right and left pulmonary arteries. Normal enhancement of the bilateral peripheral pulmonary arteries. There is no demonstrated pulmonary embolism. Normal thoracic aorta and visualized great vessels. There is no demonstrated aortic dissection. There are calcifications of the coronary arteries. Normal mediastinum. Normal hilar regions. Normal visualized trachea and bronchi. The lungs are well expanded. There is evidence of emphysematous changes more prominent in the upper lobes. Bibasilar atelectasis and/or infiltrates with superimposed scarring in the posterior segment of the right lower lobe with areas of bronchiectasis. Normal pleura. Normal chest wall structures. Inhomogeneous appearance of multiple thoracic vertebrae with osteophyte of mid dorsal vertebrae. Metastatic disease should be ruled out. Normal visualized upper abdomen. CT/CTA Chest W/WO Contrast IMPRESSION: Normal CTA chest examination, without a demonstrated pulmonary embolism or arterial dissection. Bibasilar atelectasis superimposed on scarring worse at the right lung base. Electronically Signed: Presley Charles, at 11:09 EST , Service support ,
--- NOTE | 2019-10-22 09:45 | RAD_ITS ---
STUDY: X-RAY CHEST REASON FOR EXAM: Female, 58 years old. Sob TECHNIQUE: Single AP portable view of the chest. COMPARISON: Comparison is made with prior examination dated October 05, 2019. FINDINGS: EKG electrodes are seen. Since prior study, there has been aggressive atelectasis and/or infiltrate at the right lung base. Stable pleural parenchymal changes at the left lung base. There is moderate cardiac enlargement. Normal mediastinum and sven. Normal visualized pulmonary arteries. There is atherosclerotic tortuosity of the aortic arch and descending thoracic aorta. There is a levoscoliosis of the thoracic spine. Normal visualized ribs, clavicles, and shoulders. There is no demonstrated abnormality of the visualized soft tissue structures of the upper abdomen. RAD/Chest 1 View (Portable) IMPRESSION: Progressive atelectasis/infiltrate at the right lung base. Stable pleural parenchymal changes at the left lung base. Electronically Signed: Presley Charles, at 10:08 EST , Service support ,
--- NOTE | 2019-10-22 09:48 | ED.VISSUMM ---
- ER Visit Summary Date of Service: 10/22/19 Chief Complaint: Shortness of breath, back pain History of Present Illness: The patient is a 58 F who has shortness of breath and back pain. She states she has had back pain for a couple of months. It is all over her back. Pain is worse with exertion and movement. Her oxycodone at home was not helping. She developed shortness of breath this morning. She has a history of COPD and wears 4 L of home oxygen. She admits to some mild chest discomfort with this. EMS was called and they gave DuoNeb, Solu-Medrol for the breathing and Dilaudid for the back pain. The patient has a history of CML and is currently on Gleevec therapy. She was admitted to the hospital for a URI and COPD exacerbation. She was not placed on any antibiotics. Dr. Ridley is her quality engineer medical device Physical Examination: Vital signs reviewed. HEENT exam unremarkable. Heart is tachycardic and regular rhythm without murmurs. Lungs are clear to auscultation. She has no retractions or wheezing that I can hear on examination. Abdomen is soft and nontender. Her back is tender throughout her entire back. No specific spinal tenderness. Extremities reveal no edema. Skin exam normal. Neurologic exam normal. Test Results: EKG is sinus rhythm with a rate of 120. Nonspecific ST-T wave changes noted. White blood cell count 14.9, hemoglobin 11.2. Troponin normal. BNP normal. Chest x-ray shows infiltrate versus atelectasis. CTA of the chest shows that this is atelectasis without infiltrates. No PE. Emergency Department Course and Treatment: The patient was given albuterol. She was ambulated after treatments and she was hypoxic in the 80s. She was very short of breath even with minimal ambulation. I feel she needs to be admitted to the hospital. I discussed this with the hospitalist and we will admit her to PCU. Treatment Plan: [] Disposition: Admit Impression: COPD exacerbation, hypoxia This note was generated with [facility] dictation software. It may contain incorrect words, spelling, and punctuation that were not noted in review of the chart prior to signing ED Disposition - Plan for ED Patient: Referrals: Jennifer Coelho, GAVINO-C [Primary Care Provider] -
[2019-10-22 10:01] LABS: Absolute Lymphocyte Count 3.79 X10^3/uL (0.83-4.51); Absolute Neutrophil Count 10.1 X10^3/uL (2.0-7.7); Basophil# 0.02 X10^3/uL; Basophil% 0.1 % (0-1); Eosinophil# 0.04 X10^3/uL; Eosinophils% 0.3 % (0-5); Hematocrit 36.4 % (37-47); Hemoglobin 11.2 g/dL (12.0-15.0); Lymphocyte # 3.79 X10^3/ul (4.0); Lymphocyte % 25.5 % (19-41); Mean Corp Hgb Conc 30.8 g/dL (32-36); Mean Corpuscular Hgb 29.6 pg (27.0-32.0); Mean Platelet Vol. 8.6 fl (6.2-12.0); Monocyte# 0.78 X10^3/uL; Monocyte% 5.2 % (0-10); NRBC Flagged by Analyzer 0 % (0-5); Neutrophil # 10.09 X10^3/uL (2.7-7.7); Platelet Count 206 K/mm3 (150-450); RBC Distribution Width CV 15.5 % (11.6-14.6); RBC Distribution Width SD 54.7 fl (35.1-43.9); Red Blood Count 3.79 M/mm3 (4.2-5.4); White Blood Count 14.9 K/mm3 (4.4-11.0)
[2019-10-22] MEDS: Albuterol 2.5 MG/3 ML VIAL.NEB. INHALATION ×3 (10:13→12:19)
[2019-10-22 10:18] LABS: Anion Gap 6 (5-15); BUN 8 mg/dL (7-18); BUN/Creat Ratio 9.7 RATIO (10-20); Calcium,Total 8.1 mg/dL (8.5-10.1); Chloride 103 mmol/L (98-107); Creatinine, Serum 0.82 mg/dL (0.55-1.02); EST Glomerular Filtration Rate 76 mL/min (>60); Est Glom Filt Rate - Afr Amer 92 mL/min (>60); Estimated Creatinine Clearance 60.59 ml/min; Glucose 105 mg/dL (74-106); Potassium 3.2 mmol/L (3.5-5.1); Sodium Level 140 mmol/L (136-145)
[2019-10-22 10:34] LABS: BNP,B-Type NATRIURETIC PEPTIDE 33.3 pg/mL (0-100)
--- NOTE | 2019-10-22 11:09 | ED.RN ---
PT TRIGGERED SEPSIS ALERT, DR GRAJEDA NOTIFIED, AFTER INTERPRETING IMAGES AND LABS HE DOES NOT WANT CULTURES AND LACTIC DONE AT THIS TIME.
--- NOTE | 2019-10-22 13:34 | RAD_ITS ---
STUDY: X-RAY - THORACIC SPINE REASON FOR EXAM: Female, 58 years old. Pain TECHNIQUE: 3 view(s) of the thoracic spine were obtained. COMPARISON: None. FINDINGS: There is age indeterminate compression deformities noted in the T8 and T10 vertebral bodies which are of uncertain age. The remainder of the vertebral bodies are intact. There are moderate multilevel degenerative changes. RAD/Thoracic Spine 3 Views IMPRESSION: Age-indeterminate compression deformities in the T8 and T10 vertebral bodies. If indicated, further evaluation with CT or MRI can be performed. Electronically Signed: Duane Kevin, at 19:06 EST Tel , Service support ,
--- NOTE | 2019-10-22 13:35 | PCM.HP.STD ---
Problem List (1) Essential hypertension Status: Chronic (2) Fibromyalgia Status: Chronic (3) Nicotine abuse Status: Chronic (4) Stage 3 severe COPD by GOLD classification Status: Chronic (5) Chronic hypoxemic respiratory failure Status: Chronic (6) Ulcerative colitis Status: Chronic (7) CML (chronic myelocytic leukemia) Status: Chronic (8) Emphysema of lung Status: Chronic History of Present Illness Date of Admission: 10/22/19 Chief Complaint: Back pain. The patient is a 58 year old F patient with past medical history as mentioned above presented to the emergency room because of back pain. When I accepted the patient for admission, the pain complaint according to the ER physician was shortness of breath and hypoxia upon ambulation. Reportedly, her pulse ox went down to mid 80s with ambulation on 4 L of oxygen. The patient denied any worsening shortness of breath, denied any cough or sputum production. She denied any worsening of her respiratory status. She denied fever or chills. She denied sore throat, sinus or congestion. She is on 4 L of oxygen at home and she has been on the same amount of oxygen in the ED. I asked the patient multiple times if she has any worsening symptoms in terms of COPD and she denied. She stated that her main presenting complaint is the back pain. This back pain has been going on for several months, it is on both mid and lower back on the sides of her spine, dull aching pain, 8 out of 10 in severity, not radiating, aggravated by ambulation and without associated symptoms. She mentioned that this pain has been going on for several months and it is not new. She denied any radiation of this pain down to her legs. She denied trauma to her back. She denied numbness or tingling. In the emergency department, she was tachycardic, she is chronically tachycardic, blood pressure stable, pulse ox was 95% on 4 L. Her routine blood work was remarkable for chronic leukocytosis and potassium of 3.2, otherwise normal. Troponin was negative. Chest x-ray showed chronic COPD findings, left lung atelectasis, I doubt any acute infiltrate or consolidation. CTA chest showed no PE or dissection, bilateral base atelectasis, again I doubt acute infiltrate or consolidation. She is being admitted for observation for back pain. Past Medical History Past Medical History (Chronic Problems): Chronic Problems (Last Updated 10/22/19 @ 13:35 by Marleni Rea MD) Tachycardia (Chronic) Essential hypertension (Chronic) Hypokalemia (Chronic) Fibromyalgia (Chronic) Nicotine abuse (Chronic) Stage 3 severe COPD by GOLD classification (Chronic) Chronic hypoxemic respiratory failure (Chronic) Ulcerative colitis (Chronic) Poor compliance with medication (Chronic) CML (chronic myelocytic leukemia) (Chronic) Emphysema of lung (Chronic) Medical History: Medical History (Last Updated 10/22/19 @ 13:35 by Marleni Rea MD) Tachycardia (Chronic) R00.0 Essential hypertension (Chronic) I10 Hypokalemia (Chronic) E87.6 Fibromyalgia (Chronic) M79.7 Nicotine abuse (Chronic) Z72.0 Stage 3 severe COPD by GOLD classification (Chronic) J44.9 Chronic hypoxemic respiratory failure (Chronic) J96.11 Ulcerative colitis (Chronic) K51.90 Poor compliance with medication (Chronic) Z91.14 CML (chronic myelocytic leukemia) (Chronic) C92.10 Emphysema of lung (Chronic) J43.9 Abdominal pain, vomiting, and diarrhea R10.9, R11.10, R19.7 Carpal tunnel syndrome G56.00 Depression F32.9 DREW (generalized anxiety disorder) F41.1 Obesity (BMI 30.0-34.9) E66.9 Seasonal allergies J30.2 Allergies ondansetron [From Zofran] Allergy (Severe, Verified 10/22/19 09:44) Anaphylaxis Penicillins Allergy (Severe, Verified 10/22/19 09:44) Hives azithromycin Adverse Reaction (Severe, Verified 10/22/19 09:44) Diarrhea codeine Adverse Reaction (Severe, Verified 10/22/19 09:44) Vomiting ondansetron HCl [From Zofran (as hydrochloride)] Adverse Reaction (Severe, Verified 10/22/19 09:44) Nausea pregabalin [From Lyrica] Adverse Reaction (Severe, Verified 10/22/19 09:44) i can't see propoxyphene napsylate [From Darvocet-N 100] Adverse Reaction (Severe, Verified 10/22/19 09:44) Vomiting Sulfa (Sulfonamide Antibiotics) Adverse Reaction (Intermediate, Verified 10/22/19 09:44) Hives Home Medications: Ambulatory Orders Medication Instructions Recorded Albuterol Aerosols [Ventolin 2.5 mg INHALATION Q4H PRN PRN 10/18/18 Aerosols] Budesonide/Formoterol Fumarate 2 puff IH BID 10/18/18 [Symbicort 160-4.5 Mcg Inhaler] Diltiazem CD [Cardizem CD] 240 mg PO DAILY 10/18/18 Sertraline HCl [Zoloft] 50 mg PO DAILY 10/18/18 albuterol sulfate 90 mcg/actuation 2 puff INHALATION Q4H PRN PRN #18 g 01/14/19 aerosol inhaler fluticasone propionate 50 2 spray INTRANASAL DAILY g 04/14/19 mcg/actuation nasal spray,suspension potassium chloride 20 mEq 20 meq PO BID 04/14/19 tablet,extended release(part/cryst) fexofenadine 180 mg tablet 180 mg PO DAILY 04/15/19 omeprazole 40 mg capsule,delayed 40 mg PO DAILY 04/15/19 release oxycodone 5 mg tablet 5 mg PO TID PRN tab 04/15/19 sertraline 25 mg tablet 25 mg PO DAILY 04/15/19 alprazolam 0.5 mg tablet 0.5 mg PO Q6H PRN tab 07/15/19 buspirone 10 mg tablet 10 mg PO TID tab 07/15/19 prochlorperazine maleate 10 mg 10 mg PO Q6H PRN 07/15/19 tablet ipratropium 0.5 mg-albuterol 3 mg 3 ml INHALATION Q6H PRN #180 ml 09/15/19 (2.5 mg base)/3 mL nebulization soln tiotropium bromide 2.5 2 puff INHALATION DAILY #4 g 09/16/19 mcg/actuation mist for inhalation Imatinib Mesylate [Gleevec] 400 mg PO DAILY 10/05/19 Ipratropium/Albuterol Sulfate 3 ml INHALATION [id number] #50 10/09/19 [Duoneb] ampul.neb Prednisone 10 mg PO UD #42 tab 10/09/19 Surgical History: Surgical History (Last Reviewed 10/22/19 @ 13:41 by Marleni Rea MD) History of cardiac cath Z98.890 History of cataract extraction Z98.49 History of cranial surgery Z98.890 due to closed fontanell History of hemorrhoidectomy Z98.890 History of hysterectomy Z98.890, Z90.710 Surgical History: hysterectomy, - - Hemorrhoidectomy, 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 Psychiatric History: Anxiety [employer] History: No pertinent [employer] history Smoking Status: Former smoker Alcohol: None Drugs: None - *Family History Maternal Family History: Family History (Last Reviewed 10/22/19 @ 13:41 by Marleni Rea MD) Mother Ovarian cancer Brother Heart disease Grandmother Heart disease Grandfather Heart disease History Items: - - mother with ovarian cancer; denies family history of any blood disorders or blood cancers Paternal Family History: Family History (Last Reviewed 10/22/19 @ 13:41 by Marleni Rea MD) Mother Ovarian cancer Brother Heart disease Grandmother Heart disease Grandfather Heart disease History Items: - Review of Systems Constitutional: Denies: Anorexia, Chills, Fever, Weakness Eyes: Denies: Blurred vision, Double vision, Drainage, Redness HEENT: Denies: Difficulty Hearing, Ear Pain, Eye Pain, Nasal Congestion, Sore Throat Cardiovascular: Denies: Chest Pain, Chest Pressure, Chest Tightness, Orthopnea, Palpitations, Syncope Respiratory: Reports: Shortness of Breath. Denies: Cough, Pleuritic Pain, Sputum production, Wheezing Gastrointestinal: Denies: Abdominal Pain, Constipation, Diarrhea, Nausea, Vomiting Genitourinary: Denies: Dysuria, Frequency, Hematuria Musculoskeletal: Reports: Back Pain. Denies: Arm Pain, Foot Pain Skin: Denies: Dryness, Rash Neurological: Denies: Balance problems, Double vision, Change in Speech, Slurred speech, Headaches, Incoordination Psychiatric: Denies: Anxiety, Depression Endocrine: Denies: Change in Body Habitus, Polydipsia, Polyuria VTE Information - Inpt Only VTE Present on Admission: No VTE Mechan Device Prophylaxis: None VTE Pharm Prophylaxis ordered?: Yes - Physical Exam Vitals/I&O's: Vital Signs Temp Pulse Resp BP Pulse Ox 98.7 F 130 H 12 117/77 91 10/22/19 11:07 10/22/19 12:50 10/22/19 12:50 10/22/19 12:50 10/22/19 12:50 Oxygen Flow Rate (L/min) 4 Oxygen Delivery Method Nasal Cannula Weight: 164 lb 0.383 oz Body Mass Index (BMI) 29.9 General: Alert, Oriented x3, Cooperative, - - Minimally short of breath. HEENT: Atraumatic, PERRLA, EOMI, Normocephalic Oral: Moist Mucosa, No Gingival or Mucosal Lesions/ Ulcerations Neck: Supple, No JVD, Negative Carotid Bruits, Trachea Midline, Thyroid Normal Size and Texture Lungs: Clear to auscultation, No rhonchi, No wheeze, No rales, Diminished, Short of Breath Cardiovascular: Regular rate, Regular Rhythm, Normal S1, Normal S2, PMI Normal, Tachycardic Abdomen: Bowel Sounds Present, Soft, Non Tender, Non-Distended, No Hepato-splenomegaly Extremities: No clubbing, No cyanosis, No edema Skin: No rashes, No breakdown Lymphatic: No Cervical, Supraclavicular, or Inguinal Adenopathy Neurological: Cranial nerves II-XII grossly intact, Neuro grossly intact Psych/Mental Status: Normal Affect, Appropriate, Alert and oriented to time, place, person, mood and affect Laboratory Results 10/22/19 09:50: WBC 14.9 H, RBC 3.79 L, Hgb 11.2 L, Hct 36.4 L, MCV 96.0, MCH 29.6, MCHC 30.8 L, RDW Std Deviation 54.7 H, RDW Coeff of Noe 15.5 H, Plt Count 206, MPV 8.6, Immature Gran % (Auto) 0.900, Neut % (Auto) 68.0, Lymph % (Auto) 25.5, Daniels % (Auto) 5.2, Eos % (Auto) 0.3, Baso % (Auto) 0.1, Absolute Neuts (auto) 10.1 H, Absolute Lymphs (auto) 3.79, Nucleated RBC % 0 10/22/19 09:50: Sodium 140, Potassium 3.2 L, Chloride 103, Carbon Dioxide 31.0, Anion Gap 6, BUN 8, Creatinine 0.82, Estim Creat Clear Calc 60.59, Est GFR (MDRD) Af Amer 92, Est GFR (MDRD) Non-Af 76, BUN/Creatinine Ratio 9.7 L, Glucose 105, Calcium 8.1 L, Troponin I < 0.015 10/22/19 09:50: B-Natriuretic Peptide 33.3 Clinical Impression(s) from Imaging Studies Chest CTA 10/22/19 09:45 IMPRESSION: Normal CTA chest examination, without a demonstrated pulmonary embolism or arterial dissection. Bibasilar atelectasis superimposed on scarring worse at the right lung base. Electronically Signed: Presley Araceli, at 11:09 EST , Service support , Chest X-Ray 10/22/19 09:45 IMPRESSION: Progressive atelectasis/infiltrate at the right lung base. Stable pleural parenchymal changes at the left lung base. Electronically Signed: Presley Araceli, at 10:08 EST , Service support , Current Medications Acetaminophen (Tylenol) 650 mg PO Q6H PRN PRN PRN Reason: Pain Score 1-3/Temp > 100.7 F Albuterol Sulfate (Ventolin Aerosols) 2.5 mg INHALATION Q2H PRN PRN PRN Reason: SHORTNESS OF BREATH Albuterol/Ipratropium (Duoneb) 3 ml INHALATION Q4H.RT GERA Alprazolam (Xanax) 0.5 mg PO Q6H PRN PRN Reason: ANXIETY Diltiazem HCl (Cardizem Cd) 240 mg PO DAILY [facility] Guaifenesin (Mucinex) 1,200 mg PO BID GERA Levofloxacin (Levaquin Iv) 750 mg in 150 mls @ 100 mls/hr IV Q24 GERA Imatinib Mesylate (Gleevec) 400 mg PO DAILY GERA Non-Formulary Medication (Buspirone Hcl) 10 mg PO TID GERA Non-Formulary Medication (Omeprazole) 40 mg PO DAILY GERA Oxycodone HCl (Oxyir) 5 mg PO TID PRN PRN Reason: Pain Score 1-10/10 Potassium Chloride (K-Dur) 20 meq PO BID GERA Prednisone () 40 mg PO DAILY@0800 GERA Promethazine HCl (Phenergan) 6.25 mg IV Q6H PRN PRN PRN Reason: NAUSEA/VOMITING Senna/Docusate Sodium (Senokot-S, [place]-Colace) 2 tablet PO BID PRN PRN PRN Reason: Constipation Sertraline HCl (Zoloft) 50 mg PO DAILY GERA Assessment/Plan This is a 58 years old female patient presented to the emergency room because of mid and lower back pain on both sides of the spine, found to have hypoxia upon ambulation and she is being admitted for back pain for treatment. Initial admission diagnosis after discussion with ER physician was acute COPD exacerbation with acute on chronic hypoxic respiratory failure. After patient was evaluated, she denied any worsening of her respiratory symptoms, no new cough, no worsening shortness of breath, no sputum production. She has been on 4 L of chronically. She has been chronically tachycardic. At this time, no evidence of acute COPD exacerbation or acute respiratory failure. #1 back pain: This has been going on for several months. It is on the mid and lower back on both sides of the spine. No associated symptoms, no trauma or mechanical fall. CTA chest showed no PE or dissection. Chest x-ray without acute findings. Plan: Admit to PCU for observation, continue OxyIR PRN for pain, x-ray of the thoracic and lumbar spine, Tylenol PRN, Flexeril as needed, PT OT evaluation and treatment. #2 chronic COPD/chronic respiratory failure: Without evidence of acute exacerbation. Patient is currently on 4 L of oxygen although it was reported that her pulse ox came down to mid 80s with ambulation on oxygen in the ED. Patient denied any worsening of her symptoms. She does have chronic leukocytosis. Currently, she does have tachycardia. CTA chest and chest x-ray reviewed as above. Plan: DuoNeb every 4 hours, albuterol PRN, prednisone. No indication for IV antibiotics and IV steroids. #3 chronic sinus tachycardia: This secondary to chronic hypoxia and COPD. Heart rate has been in the 120s, continue Cardizem p.o. #3 chronic myelocytic leukemia: Currently on Gleevec. It will be continued. #5 ulcerative colitis: In addition, stable, no complaints. She is not on treatment. #6 fibromyalgia: Continue oxycodone, start Flexeril as needed. #7 DVT prophylaxis: Subcu Lovenox. This note was generated with [employer] dictation software. It may contain incorrect words, spelling, and punctuation that were not noted in checking the note before signing. Code Visit OBSV E&M: 72048 Initial observation care L2
--- NOTE | 2019-10-22 14:01 | CASEMGMT ---
LW/POA forms scanned into summary tab of [facility] is listed as pt's healthcare POA. SANDY Cruz
--- NOTE | 2019-10-22 14:38 | RAD_ITS ---
STUDY: X-RAY - LUMBAR SPINE REASON FOR EXAM: Female, 58 years old. Back pain TECHNIQUE: 3 view(s) of the lumbar spine were obtained. COMPARISON: None FINDINGS: There is no evidence of fracture or dislocation in the lumbar spine. The vertebral body heights are well-maintained. There are moderate degenerative changes with disc space narrowing, facet hypertrophy and small osteophytes. There are atherosclerotic calcifications noted in the aorta. RAD/Lumbar Spine 2 or 3 Views IMPRESSION: No fracture or dislocation in the lumbar spine. Moderate degenerative change. Electronically Signed: Duane Kevin, at 19:25 EST Tel , Service support ,
[2019-10-22 14:40] LABS: Allen Test POS; Base Excess 2 mmol/L (-2 to +2); Blood Gas Specimen Type ART; O2 Delivery Device Nasal Can; PO2 64 mmHG (75-100); SITE L Radial; SO2 93 % (95-99); Time Given 1415; Total Carbon Dioxide 27 mmol/L; pCO2 36.3 mmHg (35-45); pH 7.46 (7.35-7.45)
[2019-10-22] MEDS: Ipratropium/Albuterol Sulfate 3 ML AMPUL.NEB INHALATION ×3 (15:13→23:15)
[2019-10-22] MEDS: guaiFENesin 1,200 MG Tablet 1200 MG PO ×2 (15:52→21:45)
[2019-10-22] MEDS: busPIRone 5 MG Tablet 10 MG PO ×2 (15:52→21:45)
[2019-10-22] MEDS: dilTIAZem CD 240 MG Capsule PO (15:52)
[2019-10-22] MEDS: Pantoprazole Sodium 40 MG Tablet PO (15:53)
[2019-10-22] MEDS: predniSONE 20 MG Tablet 40 MG PO (15:53)
[2019-10-22] MEDS: ALPRAZolam 0.5 MG Tablet PO ×2 (16:01→22:18)
[2019-10-22] MEDS: oxyCODONE 5 MG Tablet PO (17:41)
[2019-10-22] MEDS: Sertraline 50 MG Tablet PO (21:45)
[2019-10-22] MEDS: cycloBENZAPRine HCl 10 MG Tablet PO (21:45)
[2019-10-23] VITALS (11 sets, daily range): BP systolic 116–147; BP diastolic 77–94; PULSE 105–119; RESP 16–20; TEMP 36.8; O2SAT 90–97
[2019-10-23] MEDS: oxyCODONE 5 MG Tablet PO ×2 (03:36→11:45)
[2019-10-23] MEDS: Ipratropium/Albuterol Sulfate 3 ML AMPUL.NEB INHALATION ×3 (03:36→10:52)
[2019-10-23] MEDS: busPIRone 5 MG Tablet 10 MG PO ×2 (06:30→13:54)
[2019-10-23] MEDS: Enoxaparin 40 MG/0.4 ML Syringe SC (06:30)
[2019-10-23] MEDS: predniSONE 20 MG Tablet 40 MG PO (07:58)
[2019-10-23] MEDS: cycloBENZAPRine HCl 10 MG Tablet PO (07:58)
[2019-10-23] MEDS: Pantoprazole Sodium 40 MG Tablet PO (08:59)
[2019-10-23] MEDS: guaiFENesin 1,200 MG Tablet 1200 MG PO (08:59)
[2019-10-23] MEDS: dilTIAZem CD 240 MG Capsule PO (08:59)
--- NOTE | 2019-10-23 11:42 | DCINST_ITS ---
You will use the following diet at home:: No restrictions Discharge Activity: Return to Normal Activity Call your doctor if you observe: Shortness of breath, Dizziness, Fainting spells, Chest pain Allergies/Adverse Reactions: Allergies ondansetron [From Zofran] Allergy (Severe, Verified 10/22/19 09:44) Anaphylaxis Penicillins Allergy (Severe, Verified 10/22/19 09:44) Hives azithromycin Adverse Reaction (Severe, Verified 10/22/19 09:44) Diarrhea codeine Adverse Reaction (Severe, Verified 10/22/19 09:44) Vomiting ondansetron HCl [From Zofran (as hydrochloride)] Adverse Reaction (Severe, Verified 10/22/19 09:44) Nausea pregabalin [From Lyrica] Adverse Reaction (Severe, Verified 10/22/19 09:44) i can't see propoxyphene napsylate [From Darvocet-N 100] Adverse Reaction (Severe, Verified 10/22/19 09:44) Vomiting Sulfa (Sulfonamide Antibiotics) Adverse Reaction (Intermediate, Verified 10/22/19 09:44) Hives Medications to take at Discharge Albuterol Aerosols [Ventolin Aerosols] 2.5 mg INHALATION Q4H PRN PRN 10/18/18 Budesonide/Formoterol Fumarate [Symbicort 160-4.5 Mcg Inhaler] 2 puff IH BID 10/18/18 Diltiazem CD [Cardizem CD] 240 mg PO DAILY 10/18/18 Sertraline HCl [Zoloft] 50 mg PO DAILY 10/18/18 albuterol sulfate 90 mcg/actuation aerosol inhaler 2 puff INHALATION Q4H PRN PRN #18 g 01/14/19 fluticasone propionate 50 mcg/actuation nasal spray,suspension 2 spray INTRANASAL DAILY g 04/14/19 potassium chloride 20 mEq tablet,extended release(part/cryst) 20 meq PO BID 04/14/19 fexofenadine 180 mg tablet 180 mg PO DAILY 04/15/19 omeprazole 40 mg capsule,delayed release 40 mg PO DAILY 04/15/19 oxycodone 5 mg tablet 5 mg PO TID PRN tab 04/15/19 sertraline 25 mg tablet 25 mg PO DAILY 04/15/19 alprazolam 0.5 mg tablet 0.5 mg PO Q6H PRN tab 07/15/19 buspirone 10 mg tablet 10 mg PO TID tab 07/15/19 prochlorperazine maleate 10 mg tablet 10 mg PO Q6H PRN 07/15/19 ipratropium 0.5 mg-albuterol 3 mg (2.5 mg base)/3 mL nebulization soln 3 ml INHALATION Q6H PRN #180 ml 09/15/19 tiotropium bromide 2.5 mcg/actuation mist for inhalation 2 puff INHALATION DAILY #4 g 09/16/19 Imatinib Mesylate [Gleevec] 400 mg PO DAILY 10/05/19 Prednisone 10 mg PO UD #42 tab 10/09/19 cycloBENZAPRine HCl [Flexeril] 10 mg PO TID PRN PRN #10 tab 10/23/19 The following prescriptions were given: cycloBENZAPRine HCl [Flexeril] 10 mg PO TID PRN PRN #10 tab PRN Reason: Muscle pain, spasm Transmission Status: Pending to [facility] Primary Care Physician: Jennifer Coelho, [facility] [Primary Care Provider] - Please follow up with your Primary Care Physician in: 1 Week Test Results: Test results from this visit will be discussed in further detail at your follow- up appointment, if applicable. Please Follow Up With: Candida Vazquez MD When: Call for soonest available appt- pain management Proposed Discharge Date: 10/23/19
--- NOTE | 2019-10-23 11:44 | PCM.DC.SUM ---
Discharge Date and Diagnosis Date of Admission: 10/22/19 Date of Discharge: 10/23/19 - Primary Discharge Diagnosis 1. Acute on chronic back pain 2. Chronic COPD with chronic toxic respiratory failure 3. Chronic sinus tachycardia 4. Chronic myelocytic leukemia 5. Ulcerative colitis 6. Fibromyalgia 7. Depression/anxiety - Secondary Discharge Diagnosis Chronic Problems (Last Updated 10/22/19 @ 13:49 by Marleni Rea MD) Tachycardia (Chronic) Hypokalemia (Chronic) Fibromyalgia (Chronic) Nicotine abuse (Chronic) Stage 3 severe COPD by GOLD classification (Chronic) Chronic hypoxemic respiratory failure (Chronic) Ulcerative colitis (Chronic) Poor compliance with medication (Chronic) CML (chronic myelocytic leukemia) (Chronic) Emphysema of lung (Chronic) Hospital Course and Treatment Imaging Results: Diagnostic Data Chest CTA 10/22/19 09:45 IMPRESSION: Normal CTA chest examination, without a demonstrated pulmonary embolism or arterial dissection. Bibasilar atelectasis superimposed on scarring worse at the right lung base. Electronically Signed: Presley Charles, at 11:09 EST , Service support , Chest X-Ray 10/22/19 09:45 IMPRESSION: Progressive atelectasis/infiltrate at the right lung base. Stable pleural parenchymal changes at the left lung base. Electronically Signed: Presley Charles, at 10:08 EST , Service support , Thoracic Spine X-Ray 10/22/19 13:34 IMPRESSION: Age-indeterminate compression deformities in the T8 and T10 vertebral bodies. If indicated, further evaluation with CT or MRI can be performed. Electronically Signed: Duane Kevin, at 19:06 EST Tel , Service support , Lumbar Spine X-Ray 10/22/19 14:38 IMPRESSION: No fracture or dislocation in the lumbar spine. Moderate degenerative change. Electronically Signed: Duane Kevin, at 19:25 EST Tel , Service support , Operations: None Procedures: None Summary of Care Provided: The patient is a 58 year old F admitted 10/22/2019 due to back pain. 1. Acute on chronic back pain-patient reports her pain is all over and mostly feels like muscle spasms. Thoracic x-ray shows age-indeterminate compression deformities in the T8 and T10 vertebral bodies. Lumbar spine x-ray shows no fracture or dislocation. Recommended MRI of thoracic spine however patient refused due to severe anxiety/claustrophobia. She reports she follows with palliative care for chronic symptom and pain management. Recommend follow-up with Dr. Vazquez, pain management for further evaluation as well. Patient initiated on as needed Flexeril for muscle spasms. Back pain improved at time of discharge. Follow-up with primary care provider in 1 week. 2. Chronic COPD with chronic toxic respiratory failure-no acute exacerbation. Stable on baseline home O2 requirements of 4 L continuously. CTA unremarkable. 3. Chronic sinus tachycardia-continue home Cardizem regimen. 4. Chronic myelocytic leukemia-on Gleevec. 5. Ulcerative colitis-stable. 6. Fibromyalgia-continue PRN pain regimen. Follows with palliative care. 7. Depression/anxiety-continue sertraline, buspirone, PRN alprazolam. General: Alert, Oriented x3, Cooperative, - - Minimally short of breath. HEENT: Atraumatic, PERRLA, EOMI, Normocephalic Oral: Moist Mucosa, No Gingival or Mucosal Lesions/ Ulcerations Neck: Supple, No JVD, Negative Carotid Bruits, Trachea Midline, Thyroid Normal Size and Texture Lungs: Clear to auscultation, No rhonchi, No wheeze, No rales, Diminished, Short of Breath Cardiovascular: Regular rate, Regular Rhythm, Normal S1, Normal S2, PMI Normal, Tachycardic Abdomen: Bowel Sounds Present, Soft, Non Tender, Non-Distended, No Hepato-splenomegaly Extremities: No clubbing, No cyanosis, No edema Skin: No rashes, No breakdown Lymphatic: No Cervical, Supraclavicular, or Inguinal Adenopathy Neurological: Cranial nerves II-XII grossly intact, Neuro grossly intact Psych/Mental Status: Normal Affect, Appropriate, Alert and oriented to time, place, person, mood and affect Patient seen and examined prior to discharge. Physical assessment as noted above. Patient is stable for discharge with follow up recommendations as noted above. This patient was seen by YARELIS Kinney under the supervision of Dr. Jett. - Physical Exam Vitals/I&O's: Vital Signs Temp Pulse Resp BP Pulse Ox 98.3 F 119 H 18 116/79 94 10/23/19 08:58 10/23/19 10:59 10/23/19 08:58 10/23/19 08:58 10/23/19 08:58 Oxygen Flow Rate (L/min) 4 Oxygen Delivery Method Nasal Cannula Weight: 164 lb 0.383 oz Body Mass Index (BMI) 29.9 Intake and Output for Last 24 Hours 10/21/19 10/22/19 10/23/19 23:59 23:59 23:59 Intake Total 620 / 1020 800 / 800 Balance 620 / 1020 800 / 800 Laboratory Results 10/22/19 14:33: Specimen Type ART, Sample Site L Radial, pH 7.46 H, Bicarbonate Actual 26.0, POC Total CO2 27, Base Excess 2, O2 Saturation 93 L, ABG pCO2 36.3, ABG pO2 64 L, Michael Test POS, O2 Delivery Device Nasal Can, Liter Flow 4.0, Blood Gas Notified Whom [facility] , Blood Gas Notified Time 1415 Current Medications Acetaminophen (Tylenol) 650 mg PO Q6H PRN PRN PRN Reason: Pain Score 1-3/Temp > 100.7 F Albuterol Sulfate (Ventolin Aerosols) 2.5 mg INHALATION Q2H PRN PRN PRN Reason: SHORTNESS OF BREATH Albuterol/Ipratropium (Duoneb) 3 ml INHALATION Q4H.RT [facility] Last Admin: 10/23/19 10:52 Dose: 3 ml Documented by: Alprazolam (Xanax) 0.5 mg PO Q6H PRN PRN Reason: ANXIETY Last Admin: 10/22/19 22:18 Dose: 0.5 mg Documented by: Buspirone HCl (Buspar) 10 mg PO TID [facility] Last Admin: 10/23/19 06:30 Dose: 10 mg Documented by: Cyclobenzaprine HCl (Flexeril) 10 mg PO TID PRN PRN PRN Reason: Muscle pain, spasm Last Admin: 10/23/19 07:58 Dose: 10 mg Documented by: Diltiazem HCl (Cardizem Cd) 240 mg PO DAILY [facility] Last Admin: 10/23/19 08:59 Dose: 240 mg Documented by: Enoxaparin Sodium (Lovenox) 40 mg SC DAILY@0600 [facility] Last Admin: 10/23/19 06:30 Dose: 40 mg Documented by: Guaifenesin (Mucinex) 1,200 mg PO BID [facility] Last Admin: 10/23/19 08:59 Dose: 1,200 mg Documented by: Oxycodone HCl (Oxyir) 5 mg PO TID PRN PRN Reason: Pain Score 1-10/10 Last Admin: 10/23/19 03:36 Dose: 5 mg Documented by: Pantoprazole Sodium (Protonix) 40 mg PO DAILY [facility] Last Admin: 10/23/19 08:59 Dose: 40 mg Documented by: Potassium Chloride (K-Dur) 20 meq PO BIDCM [facility] Last Admin: 10/23/19 07:58 Dose: 20 meq Documented by: Prednisone () 40 mg PO DAILY@0800 [facility] Last Admin: 10/23/19 07:58 Dose: 40 mg Documented by: Promethazine HCl (Phenergan) 6.25 mg IV Q6H PRN PRN PRN Reason: NAUSEA/VOMITING Senna/Docusate Sodium (Senokot-S, [place]a-Colace) 2 tablet PO BID PRN PRN PRN Reason: Constipation Sertraline HCl (Zoloft) 50 mg PO QHS [facility] Last Admin: 10/22/19 21:45 Dose: 50 mg Documented by: Discharge Diet: No Restrictions Discharge Activity: Return to Normal Activity Call your doctor if you observe: Shortness of breath, Dizziness, Fainting spells, Chest pain Home Medications: Medications to take at Discharge Albuterol Aerosols [Ventolin Aerosols] 2.5 mg INHALATION Q4H PRN PRN 10/18/18 Budesonide/Formoterol Fumarate [Symbicort 160-4.5 Mcg Inhaler] 2 puff IH BID 10/18/18 Diltiazem CD [Cardizem CD] 240 mg PO DAILY 10/18/18 Sertraline HCl [Zoloft] 50 mg PO DAILY 10/18/18 albuterol sulfate 90 mcg/actuation aerosol inhaler 2 puff INHALATION Q4H PRN PRN #18 g 01/14/19 fluticasone propionate 50 mcg/actuation nasal spray,suspension 2 spray INTRANASAL DAILY g 04/14/19 potassium chloride 20 mEq tablet,extended release(part/cryst) 20 meq PO BID 04/14/19 fexofenadine 180 mg tablet 180 mg PO DAILY 04/15/19 omeprazole 40 mg capsule,delayed release 40 mg PO DAILY 04/15/19 oxycodone 5 mg tablet 5 mg PO TID PRN tab 04/15/19 sertraline 25 mg tablet 25 mg PO DAILY 04/15/19 alprazolam 0.5 mg tablet 0.5 mg PO Q6H PRN tab 07/15/19 buspirone 10 mg tablet 10 mg PO TID tab 07/15/19 prochlorperazine maleate 10 mg tablet 10 mg PO Q6H PRN 07/15/19 ipratropium 0.5 mg-albuterol 3 mg (2.5 mg base)/3 mL nebulization soln 3 ml INHALATION Q6H PRN #180 ml 09/15/19 tiotropium bromide 2.5 mcg/actuation mist for inhalation 2 puff INHALATION DAILY #4 g 09/16/19 Imatinib Mesylate [Gleevec] 400 mg PO DAILY 10/05/19 Prednisone 10 mg PO UD #42 tab 10/09/19 cycloBENZAPRine HCl [Flexeril] 10 mg PO TID PRN PRN #10 tab 10/23/19 Following Prescrptions Were Given to Patient: cycloBENZAPRine HCl [Flexeril] 10 mg PO TID PRN PRN #10 tab PRN Reason: Muscle pain, spasm Transmission Status: Pending to [facility] Primary Care Physician: Jennifer Coelho NP-C [Primary Care Provider] - Please follow up with your Primary Care Physician in: 1 Week Please Follow Up With: Candida Vazquez MD When: Call for soonest available appt- pain management Disposition: Home Minutes spent on discharge:: 35 Patient Condition:: Stable Medical Necessity - Tobacco Use Smoking Status: Former smoker Meaningful Use Info Meaningful Use Diagnoses (Choose all that apply): None applicable
--- NOTE | 2019-10-23 11:55 | CASEMGMT ---
[facility] CM Readmission Note: Patient was admitted to [facility] 10/05/19-10/09/2019 for COPD exacerbation. Patient went home with resumption of palliative services. Patient has waiver program CM that follows her. Patient has home oxygen at 4lpm. Patient took medications as prescribed. Patient came back to [facility] for back pain and SOB. Patient discharging home denies additional needs. Patient was to have follow-up appt today with PCP, rescheduled for 10/29. Patient has follow-up with pulmonology 11/04. Patient to follow-up with Dr. Vazquez for pain management. Patient encourage to call PCP or Palliative to manage symptoms prior to coming to hospital. Patient voiced understanding. Patient had no further questions or needs at this time.
--- NOTE | 2019-10-23 12:05 | PCA ---
All discharge and requested paperwork for appts faxed to office and Dr. Vazquez office.
--- NOTE | 2019-10-23 12:38 | CASEMGMT ---
REGINALD faxed patient's d/c instructions to her waiver [employer]UNIOR. Fax number: [phone]. REGINALD also contacted [facility] and let them know patient was admitted and discharged. REGINALD faxed d/c instructions to [phone] Yasmin RILEY MSW
== END 2019-10-23 11:43 | disposition home or self-care (01) ==
LOC: ED 10:13 → PCU 10-23 07:27
PROVIDERS: Admitting Provider Hospitalist; Emergency Provider Emergency Medicine; Family Provider Nurse Practitioner Family; PCP Nurse Practitioner Family; Referring Provider Hospitalist; Visit Provider Internal Medicine
DX: G89.29 Other chronic pain (principal); C92.10 Chronic myeloid leukemia, BCR/ABL-positive, not having achieved remission; J44.1 Chronic obstructive pulmonary disease with (acute) exacerbation; J96.11 Chronic respiratory failure with hypoxia; M79.7 Fibromyalgia; K51.90 Ulcerative colitis, unspecified, without complications; M54.5 Low back pain; F32.9 Major depressive disorder, single episode, unspecified; R00.0 Tachycardia, unspecified; Z79.899 Other long term (current) drug therapy; Z79.52 Long term (current) use of systemic steroids; Z79.51 Long term (current) use of inhaled steroids; Z99.81 Dependence on supplemental oxygen; I10 Essential (primary) hypertension; F41.1 Generalized anxiety disorder; E66.9 Obesity, unspecified; Z68.30 Body mass index [BMI] 30.0-30.9, adult; Z71.3 Dietary counseling and surveillance; Z87.891 Personal history of nicotine dependence
CPT/HCPCS: 36600; 71045; 71275; 72072; 72100; 80048; 82803; 83880; 84484; 85025; 93005; 94640; 94667; 94668; 96372; 97162; 97166; 99218; 99251; 99285; Q9967; A4216; G0378; G0463

== ENCOUNTER → 2020-03-11 13:49 | Outpatient (CLI) | payer MEDICAID, SELFPAY ==
[2020-03-11 12:56] VITALS: BMI 32.3
--- NOTE | 2020-03-11 13:51 | RAD_ITS ---
STUDY: X-RAY CHEST REASON FOR EXAM: Female, 59 years old. INCREASED SHORTNESS OF BREATH, CONCERN FOR RT RIB FX/EFFUSION TECHNIQUE: PA and lateral views of the chest. COMPARISON: Comparison is made with prior examination dated October 22, 2019. FINDINGS: Hyperinflation. Stable increased markings at the lung bases suggests more of a scarring. There is no demonstrated pleural abnormality. There is moderate cardiac enlargement. Normal mediastinum and sven. Normal visualized pulmonary arteries. There is atherosclerotic calcification of the aortic arch with tortuosity. There is demineralization of the osseous structures. Minimal loss of height of mid dorsal vertebrae. Normal visualized ribs, clavicles, and shoulders. There is no demonstrated abnormality of the visualized soft tissue structures of the upper abdomen. RAD/Chest PA and Lateral IMPRESSION: Stable increased markings at the lung bases suggestive of bibasilar scarring. Cardiomegaly. Electronically Signed: Presley Charles, at 14:50 EDT , Service support ,
== END ==
PROVIDERS: PCP Nurse Practitioner Family; Referring Provider Internal Medicine Critical Care Medicine; Visit Provider Internal Medicine Critical Care Medicine
DX: C92.10 Chronic myeloid leukemia, BCR/ABL-positive, not having achieved remission (principal); J44.9 Chronic obstructive pulmonary disease, unspecified
CPT/HCPCS: 71046

== ENCOUNTER 2020-07-06 11:07 | Observation (INO) | payer MEDICAID, SELFPAY ==
[2020-06-10 14:07] VITALS: BMI 32.3
[2020-07-06] VITALS (12 sets, daily range): BP systolic 106–146; BP diastolic 56–100; PULSE 100–121; RESP 14–24; TEMP 37.2–37.9; O2SAT 91–97; BMI 35.3; BMI 33.7; BMI 33.8
--- NOTE | 2020-07-06 11:30 | EKG12_ITS ---
Test Reason : SOB Blood Pressure : / mmHG Vent. Rate : 114 BPM Atrial Rate : 114 BPM P-R Int : 146 ms QRS Dur : 090 ms QT Int : 352 ms P-R-T Axes : 039 112 056 degrees QTc Int : 485 ms Sinus tachycardia Right axis deviation Right ventricular hypertrophy Abnormal ECG Confirmed by SURYA MURO, JEISON ([id number]), news videotape editor ANGE TOUSSAINT ([id number]) on 07/13/2020 8:59:51 AM Referred By: THADDEUS Confirmed By:EROS LONDON MD
[2020-07-06 11:44] LABS: Absolute Lymphocyte Count 2.02 X10^3/uL (0.83-4.51); Absolute Neutrophil Count 6.9 X10^3/uL (2.0-7.7); Basophil# 0.04 X10^3/uL; Basophil% 0.4 % (0-1); Eosinophil# 0.07 X10^3/uL; Eosinophils% 0.7 % (0-5); Hematocrit 35.5 % (37-47); Hemoglobin 11.3 g/dL (12.0-15.0); Lymphocyte # 2.02 X10^3/ul (4.0); Lymphocyte % 19.6 % (19-41); Mean Corp Hgb Conc 31.8 g/dL (32-36); Mean Corpuscular Volume 97.5 fL (81-99); Mean Platelet Vol. 9.3 fl (6.2-12.0); Monocyte# 1.24 X10^3/uL; NRBC Flagged by Analyzer 0 % (0-5); Neutrophil # 6.88 X10^3/uL (2.7-7.7); Neutrophil % 66.8 % (47-70); POSITIVE MORPHOLOGY YES; Platelet Count 212 K/mm3 (150-450); RBC Distribution Width CV 14.4 % (11.6-14.6); RBC Distribution Width SD 51.1 fl (35.1-43.9); Red Blood Count 3.64 M/mm3 (4.2-5.4); White Blood Count 10.3 K/mm3 (4.4-11.0)
[2020-07-06] MEDS: 0.9% Normal Saline 1,000 ML 999 ML IV (11:44)
[2020-07-06] MEDS: Acetaminophen 500 MG Tablet 1000 MG PO (11:45)
[2020-07-06] MEDS: Metoclopramide 10 MG/2 ML Vial 5 MG IV (11:46)
[2020-07-06] MEDS: Ipratropium/Albuterol Sulfate 3 ML AMPUL.NEB INHALATION ×2 (11:49→19:32)
[2020-07-06] MEDS: Albuterol 2.5 MG/3 ML VIAL.NEB. INHALATION (11:49)
[2020-07-06 11:52] LABS: International Normalized Ratio 1.1; Partial Thromboplast Time 28.6 Seconds (24.1-36.2); Prothrombin Time (Protime)PT. 13.2 SECONDS (11.7-14.9)
[2020-07-06 11:58] LABS: ALB/GLOB Ratio 0.9 RATIO (0.9-2.4); AST(SGOT) 16 U/L (15-37); Alanine Aminotransfer ALT/SGPT 20 U/L (13-56); Albumin, Serum 2.8 g/dL (3.2-5.0); Alkaline Phosphatase 72 U/L (45-117); Anion Gap 3 (5-15); BUN 10 mg/dL (7-18); BUN/Creat Ratio 10.9 RATIO (10-20); Calcium,Total 8.1 mg/dL (8.5-10.1); Chloride 104 mmol/L (98-107); Creatinine, Serum 0.92 mg/dL (0.55-1.02); EST Glomerular Filtration Rate 67 mL/min (>60); Est Glom Filt Rate - Afr Amer 81 mL/min (>60); Estimated Creatinine Clearance 50.91 ml/min; Glucose 134 mg/dL (74-106); Potassium 3.3 mmol/L (3.5-5.1); Protein, Total 5.8 g/dL (6.4-8.2); Sodium Level 140 mmol/L (136-145)
--- NOTE | 2020-07-06 12:05 | RAD_ITS ---
STUDY: X-RAY CHEST REASON FOR EXAM: Female, 59 years old. FEVER X SEVERAL DAYS, NAUSEA, ON ORAL CHEMO MEDS FOR LEUKEMIA TECHNIQUE: Single AP portable view of the chest. COMPARISON: Comparison is made with prior study dated 03/11/2020. FINDINGS: EKG lead are seen. There now is ends of a small left pleural effusion with left basilar infiltration and/or atelectasis. Minimal increased markings at the right lung base. There is mild cardiac enlargement. Normal mediastinum and sven. Normal visualized pulmonary arteries. There is atherosclerotic tortuosity of the aortic arch and descending thoracic aorta. There are diffuse degenerative changes of the visualized thoracic spine. Levoscoliosis. Normal visualized ribs, clavicles, and shoulders. There is no demonstrated abnormality of the visualized soft tissue structures of the upper abdomen. RAD/Chest 1 View (Portable) IMPRESSION: There is a new left lower lobe infiltrate and small left pleural effusion. Electronically Signed: Presley Charles, at 12:32 EDT , Service support ,
--- NOTE | 2020-07-06 12:06 | ED.VIS.GEN ---
History of Present Illness Chief Complaint: Fever Informant: Patient Onset: Days Context: Gradual Onset Narrative: Patient is a 59-year-old female with history of stage III COPD on chronic oxygen therapy, emphysema, CML on Imatinib, anxiety, fibromyalgia and ulcerative colitis presenting with fever and generalized malaise. Patient states she is had nausea and just has been feeling good for the past 2 to 3 days. He threw up once today. She no she is also had fever for couple days. She is in a bowel movement 2 days which is little abnormal for her. She does note that she is felt more short of breath but denies any change in her cough. She denies any associated chest pain and does note she is chronically short of breath as well. No recent medication changes. She did take Phenergan prior to arrival with no relief of her nausea. Patient has some chronic redness of her legs which she thinks is unchanged but she feels that she does have some increased swelling of her bilateral lower extremities. No other complaints at this time. Past Medical History - Allergies and Home Meds Allergies/Adverse Reactions: Allergies ondansetron [From Zofran] Allergy (Severe, Verified 07/06/20 11:15) Anaphylaxis Penicillins Allergy (Severe, Verified 07/06/20 11:15) Hives azithromycin Adverse Reaction (Severe, Verified 07/06/20 11:15) Diarrhea codeine Adverse Reaction (Severe, Verified 07/06/20 11:15) Vomiting ondansetron HCl [From Zofran (as hydrochloride)] Adverse Reaction (Severe, Verified 07/06/20 11:15) Nausea pregabalin [From Lyrica] Adverse Reaction (Severe, Verified 07/06/20 11:15) i can't see propoxyphene napsylate [From Darvocet-N 100] Adverse Reaction (Severe, Verified 07/06/20 11:15) Vomiting Sulfa (Sulfonamide Antibiotics) Adverse Reaction (Intermediate, Verified 07/06/20 11:15) Hives Primary Care Physician: Jennifer Coelho NP, ASSISTANT NURSE MANAGER-C [Primary Care Provider] - Past Medical History: - - stage III COPD on chronic oxygen therapy, emphysema, CML on Imatinib, anxiety, fibromyalgia and ulcerative colitis Surgical History: hysterectomy, - - Hemorrhoidectomy, 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 Smoking Status: Former smoker - Family History Maternal Family History: Family History (Last Reviewed 06/10/20 @ 14:19 by Bridget Hernandez ASSISTANT NURSE MANAGER, ASSISTANT NURSE MANAGER-C) Mother Ovarian cancer Brother Heart disease Grandmother Heart disease Grandfather Heart disease Family History: Reports: - - mother with ovarian cancer; denies family history of any blood disorders or blood cancers Paternal Family History: Family History (Last Reviewed 06/10/20 @ 14:19 by Bridget Hernandez ASSISTANT NURSE MANAGER, ASSISTANT NURSE MANAGER-C) Mother Ovarian cancer Brother Heart disease Grandmother Heart disease Grandfather Heart disease Family History: Reports: - Review of Systems General: Reports: Chills, Fever, Malaise. Denies: Sweats Eyes: Denies: Visual changes - bilaterally, Diplopia ENT: Denies: Rhinorrhea, Sore throat Cardiovascular: Denies: Chest pain, Palpitations Respiratory: Denies: Dyspnea, Cough, Dyspnea on exertion Gastrointestinal: Reports: Nausea, Vomiting, Constipation - x 2 days. Denies: Abdominal pain, Diarrhea, Melena, Hematochezia Genitourinary: Denies: Dysuria, Hematuria, Frequency Musculoskeletal: Reports: Swelling - lower extremitites . Denies: Back pain, Extremity Pain Skin: Denies: Rash, Wounds Neurological: Denies: Headache, Weakness, Numbness Physical Exam Vital Signs/Narrative: Vital Signs Temp Pulse Resp BP Pulse Ox 07/06/20 11:50 100.1 F H 115 H 14 125/96 H 96 07/06/20 11:15 118 H 126/86 H 07/06/20 11:10 100.1 F H 121 H 18 146/100 H 97 Inital Vital Signs reviewed: Yes General: Well nourished, Well developed, Obese, No Acute Distress Head: Normocephalic, Atraumatic Eyes: Perrl, EOMI ENT: No rhinorrhea, Dry mucous membranes Neck: Supple, Nontender Cardiovascular: Regular rate, Regular rhythm, No murmurs Respiratory: No distress, Chest nontender, Wheezing, Diminished - At both bases, left greater than right, Decreased Air Movement. Negative for: Retractions, Chest tenderness Abdomen: Soft, Nontender, Nondistended, Normal bowel sounds Back: Nontender, Normal Inspection Extremities: Nontender, No edema Skin: Normal color, No rash, Rash - Mild erythema of the bilateral lower legs. No associated lymphangitic streaking. Neurological: Alert, Oriented x3, Cranial nerves II-XII grossly intact, Normal Strength, Normal Sensation Psychological: Normal affect, Normal Mood Diagnostic/Tx/Re-eval Chest X-Ray - ED: 1 View, Read by ED Physician, Read by Radiologist, Left Infiltrate, Left Effusion Clinical Impression(s) from Imaging Studies Chest X-Ray 07/06/20 12:05 IMPRESSION: There is a new left lower lobe infiltrate and small left pleural effusion. Electronically Signed: Presley Charles, at 12:32 EDT , Service support , Laboratory Data 07/06/20 07/06/20 07/06/20 11:33 11:33 11:33 WBC 10.3 RBC 3.64 L Hgb 11.3 L Hct 35.5 L MCV 97.5 MCH 31.0 MCHC 31.8 L RDW Std Deviation 51.1 H RDW Coeff of Noe 14.4 Plt Count 212 MPV 9.3 Immature Gran % (Auto) 0.500 Neut % (Auto) 66.8 Lymph % (Auto) 19.6 Charlton % (Auto) 12.0 H Eos % (Auto) 0.7 Baso % (Auto) 0.4 Absolute Neuts (auto) 6.9 Absolute Lymphs (auto) 2.02 Nucleated RBC % 0 Differential Comment SCANNED PT 13.2 INR 1.1 APTT 28.6 Sodium 140 Potassium 3.3 L Chloride 104 Carbon Dioxide 33.0 H Anion Gap 3 L BUN 10 Creatinine 0.92 Estim Creat Clear Calc 50.91 Est GFR (MDRD) Af Amer 81 Est GFR (MDRD) Non-Af 67 BUN/Creatinine Ratio 10.9 Glucose 134 H Lactic Acid Calcium 8.1 L Total Bilirubin 0.50 AST 16 ALT 20 Alkaline Phosphatase 72 Total Protein 5.8 L Albumin 2.8 L Globulin 3.0 Albumin/Globulin Ratio 0.9 Urine Color Urine Clarity Urine pH Ur Specific [place] Urine Protein Urine Glucose (UA) Urine Ketones Urine Occult Blood Urine Nitrite Urine Bilirubin Urine Urobilinogen Ur Leukocyte Esterase Urine RBC Urine WBC Ur Squamous Epith Cells Urine Bacteria Urine Mucus 07/06/20 07/06/20 11:33 12:40 WBC RBC Hgb Hct MCV MCH MCHC RDW Std Deviation RDW Coeff of Noe Plt Count MPV Immature Gran % (Auto) Neut % (Auto) Lymph % (Auto) Charlton % (Auto) Eos % (Auto) Baso % (Auto) Absolute Neuts (auto) Absolute Lymphs (auto) Nucleated RBC % Differential Comment PT INR APTT Sodium Potassium Chloride Carbon Dioxide Anion Gap BUN Creatinine Estim Creat Clear Calc Est GFR (MDRD) Af Amer Est GFR (MDRD) Non-Af BUN/Creatinine Ratio Glucose Lactic Acid 0.9 Calcium Total Bilirubin AST ALT Alkaline Phosphatase Total Protein Albumin Globulin Albumin/Globulin Ratio Urine Color Yellow Urine Clarity Sl. Cloudy Urine pH 6.0 Ur Specific [place] 1.015 Urine Protein 30 H Urine Glucose (UA) 50 H Urine Ketones Negative Urine Occult Blood 50 H Urine Nitrite Negative Urine Bilirubin Negative Urine Urobilinogen Normal Ur Leukocyte Esterase 100 H Urine RBC 0-5 SEEN Urine WBC 10-25 SEEN Ur Squamous Epith Cells 0-5 SEEN Urine Bacteria 1+ Urine Mucus 0 SEEN - Rhythm Strip Rhythm Strip: Sinus Tach Rate: 114 Ectopy: None - EKG Initial EKG Interpretation: Sinus Tachycardia, - - Sinus tachycardia at a rate of 114 Right axis deviation Normal intervals Consistent with pulmonary disease pattern Normal ST segments No signs of ACS - Medical Decision Making Patient is a 59-year-old female with complex medical history presenting with worsening shortness of breath as well as fever and nausea/vomiting. Patient wears 4 L at baseline. She does appear dehydrated on clinical exam but she has dry mucosal membranes and is tachycardic. She is diminished breath sounds at the left base and is ultimately found to have a left lower lobe infiltrate as well as pleural effusion. This is likely the cause of her symptoms. Patient does have CML and is on therapy for this as well. Because of this she is covered with broad-spectrum antibiotics, vancomycin and cefepime. She is given IV fluids in the emergency room as well as Reglan. COVID respiratory panel are pending but patient be admitted to the hospital for further treatment of her pneumonia. She is agreeable with plan. She is stable for the general medical floor at time of disposition. Patient does have a source of infection tachycardia, she does not have another sirs criteria and therefore does not meet criteria for sepsis. Her lactate is normal. ED Disposition - Plan for ED Patient: Diagnosis: Left lower lobe pneumonia, Chronic respiratory failure with hypoxia Referrals: Jennifer Coelho ASSISTANT NURSE MANAGER, ASSISTANT NURSE MANAGER-C [Primary Care Provider] -
[2020-07-06 12:08] LABS: Differential Comment SCANNED; Differential Indicated SCAN CRITERIA MET
[2020-07-06 12:15] LABS: Lactic Acid 0.9 mmol/L (0.4-1.9)
[2020-07-06 12:46] LABS: Mucous, Urine 0 SEEN /hpf (<or=2+)
[2020-07-06 12:50] LABS: Color, Urine Yellow (Yellow); Glucose, Dipstick 50 mg/dl (Normal); Ketone-Dipstick Negative (Negative); Leukocyte Esterase-Dipstick 100 /ul (Negative); Nitrite-Dipstick Negative (Negative); Occult Blood-Urine 50 /ul (Negative); Protein-Dipstick 30 mg/dl (Negative); Specific Gravity, Urine 1.015 (1.002-1.030); Urine Bilirubin Dipstick Negative (Negative); Urine Clarity Sl. Cloudy (Clear); Urine Urobilinogen Normal (Normal)
[2020-07-06 12:58] LABS: Bacteria 1+ /hpf (None Seen); Red Blood Cells-Urine 0-5 SEEN /hpf (0-5); Squamous Epithelial Cells - UA 0-5 SEEN /hpf (5-10); White Blood Cells 10-25 SEEN /hpf (0-5)
--- NOTE | 2020-07-06 13:28 | HP.PCM_ITS ---
Problem List (1) Pneumonia Status: Acute (2) COPD with acute exacerbation Status: Acute (3) Tachycardia Status: Chronic (4) Hypokalemia Status: Chronic (5) Fibromyalgia Status: Chronic (6) Nicotine abuse Status: Chronic (7) Stage 3 severe COPD by GOLD classification Status: Chronic (8) Chronic hypoxemic respiratory failure Status: Chronic (9) Ulcerative colitis Status: Chronic (10) Poor compliance with medication Status: Chronic (11) CML (chronic myelocytic leukemia) Status: Chronic (12) Emphysema of lung Status: Chronic History of Present Illness Date of Admission: 07/06/20 Chief Complaint: fever and shortness of breath The patient is a 59 year old F presents with several day history of fever. Temps going up to 100.8F. Additionally with N/V. +SOB. +Nasal congestion. She presented to ED and was found to have LLL pneumonia. She received vanc and cefepime in ED. She denies any contacts with COVID-19 also denies having been out and about in the community. [] Past Medical History Past Medical History (Chronic Problems): Chronic Problems (Last Reviewed 06/10/20 @ 14:19 by Bridget Hernandez VENUE ATTENDANT, VENUE ATTENDANT-C) Tachycardia (Chronic) Hypokalemia (Chronic) Fibromyalgia (Chronic) Nicotine abuse (Chronic) Stage 3 severe COPD by GOLD classification (Chronic) Chronic hypoxemic respiratory failure (Chronic) Ulcerative colitis (Chronic) Poor compliance with medication (Chronic) CML (chronic myelocytic leukemia) (Chronic) Emphysema of lung (Chronic) Medical History: Medical History (Last Reviewed 07/06/20 @ 13:[address] Chi Becerril, DO) Tachycardia (Chronic) R00.0 Fibromyalgia (Chronic) M79.7 Nicotine abuse (Chronic) Z72.0 Stage 3 severe COPD by GOLD classification (Chronic) J44.9 Chronic hypoxemic respiratory failure (Chronic) J96.11 Ulcerative colitis (Chronic) K51.90 Poor compliance with medication (Chronic) Z91.14 CML (chronic myelocytic leukemia) (Chronic) C92.10 Carpal tunnel syndrome G56.00 Depression F32.9 DREW (generalized anxiety disorder) F41.1 Obesity (BMI 30.0-34.9) E66.9 Allergies ondansetron [From Zofran] Allergy (Severe, Verified 07/06/20 11:15) Anaphylaxis Penicillins Allergy (Severe, Verified 07/06/20 11:15) Hives azithromycin Adverse Reaction (Severe, Verified 07/06/20 11:15) Diarrhea codeine Adverse Reaction (Severe, Verified 07/06/20 11:15) Vomiting ondansetron HCl [From Zofran (as hydrochloride)] Adverse Reaction (Severe, Verified 07/06/20 11:15) Nausea pregabalin [From Lyrica] Adverse Reaction (Severe, Verified 07/06/20 11:15) i can't see propoxyphene napsylate [From Darvocet-N 100] Adverse Reaction (Severe, Verified 07/06/20 11:15) Vomiting Sulfa (Sulfonamide Antibiotics) Adverse Reaction (Intermediate, Verified 07/06/20 11:15) Hives Home Medications: Ambulatory Orders Medication Instructions Recorded Albuterol Aerosols [Ventolin 2.5 mg INHALATION Q4H PRN PRN 10/18/18 Aerosols] Budesonide/Formoterol Fumarate 2 puff IH BID 10/18/18 [Symbicort 160-4.5 Mcg Inhaler] Diltiazem CD [Cardizem CD] 240 mg PO DAILY 10/18/18 Sertraline HCl [Zoloft] 50 mg PO DAILY 10/18/18 albuterol sulfate 90 mcg/actuation 2 puff INHALATION Q4H PRN PRN #18 g 01/14/19 aerosol inhaler potassium chloride 20 mEq 20 meq PO BID 04/14/19 tablet,extended release(part/cryst) fexofenadine 180 mg tablet 180 mg PO DAILY 04/15/19 omeprazole 40 mg capsule,delayed 40 mg PO DAILY 04/15/19 release oxycodone 5 mg tablet 5 mg PO TID PRN tab 04/15/19 sertraline 25 mg tablet 25 mg PO DAILY 04/15/19 alprazolam 0.5 mg tablet 0.5 mg PO Q6H PRN tab 07/15/19 buspirone 10 mg tablet 10 mg PO TID tab 07/15/19 prochlorperazine maleate 10 mg 10 mg PO Q6H PRN 07/15/19 tablet tiotropium bromide 2.5 2 puff INHALATION DAILY #4 g 09/16/19 mcg/actuation mist for inhalation Imatinib Mesylate [Gleevec] 400 mg PO DAILY 10/05/19 fluticasone propionate 50 2 spray INTRANASAL DAILY #50 mcg 12/31/19 mcg/actuation nasal spray,suspension ipratropium 0.5 mg-albuterol 3 mg 3 ml INHALATION Q6H PRN ml 03/31/20 (2.5 mg base)/3 mL nebulization soln prednisone 10 mg tablet 10 mg PO QDAY #30 tab 07/02/20 Alendronate Sodium [Fosamax] 70 mg PO QWEEK 07/06/20 Surgical History: Surgical History (Last Reviewed 07/06/20 @ 13:[address] 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 Psychiatric History: Anxiety DELIVERY ARCHITECT History: No pertinent DELIVERY ARCHITECT history Smoking Status: Former smoker - *Family History Maternal Family History: Family History (Last Reviewed 06/10/20 @ 14:19 by Bridget Hernandez VENUE ATTENDANT, VENUE ATTENDANT-C) Mother Ovarian cancer Brother Heart disease Grandmother Heart disease Grandfather Heart disease History Items: - - mother with ovarian cancer; denies family history of any blood disorders or blood cancers Paternal Family History: Family History (Last Reviewed 06/10/20 @ 14:19 by Bridget Hernandez VENUE ATTENDANT, VENUE ATTENDANT-C) Mother Ovarian cancer Brother Heart disease Grandmother Heart disease Grandfather Heart disease History Items: - Review of Systems Constitutional: Reports: Fever, Malaise. Denies: Anorexia Eyes: Denies: Blurred vision, Double vision HEENT: Denies: Head Aches, Sinus Congestion, Sinus Drainage Cardiovascular: Denies: Chest Pain, Palpitations Respiratory: Reports: Cough, Shortness of Breath Gastrointestinal: Reports: Nausea, Vomiting. Denies: Abdominal Pain, Diarrhea Genitourinary: Denies: Dysuria Musculoskeletal: Denies: Joint Pain, Joint Tenderness Skin: Denies: Rash, Wounds Neurological: Denies: Numbness, Tingling, Focal weakness Psychiatric: Denies: Anxiety, Depression Hematologic/ Lymphatic: Denies: Easy Bruising, Easy Bleeding, Hx of blood clot Comment: All review of systems were negative except as mentioned above in the history of present illness and the other review of systems. VTE Information - Inpt Only VTE Present on Admission: No VTE Mechan Device Prophylaxis: None VTE Pharm Prophylaxis ordered?: Yes Patient Problems: Active and Suspected Problems (Last Reviewed 06/10/20 @ 14:19 by Bridget Hernandez VENUE ATTENDANT, VENUE ATTENDANT-C) Pneumonia (Acute) COPD with acute exacerbation (Acute) - Physical Exam Vitals/I&O's: Vital Signs Temp Pulse Resp BP Pulse Ox 37.8 C H 118 H 20 H 116/72 94 07/06/20 13:20 07/06/20 13:20 07/06/20 13:20 07/06/20 13:20 07/06/20 13:20 Oxygen Flow Rate (L/min) 4 Oxygen Delivery Method Nasal Cannula Weight: 84.8 kg Body Mass Index (BMI) 35.3 Intake and Output for Last 24 Hours 07/04/20 07/05/20 07/06/20 23:59 23:59 23:59 Intake Total 1000 / 1000 Balance 1000 / 1000 General: Alert, Cooperative, No apparent distress, - - wide set eyes. HEENT: Atraumatic, Normocephalic Oral: Moist Mucosa, No Gingival or Mucosal Lesions/ Ulcerations Neck: No Nodes, Thyroid Normal Size and Texture Lungs: - - bibasilar crackles Cardiovascular: Normal S1, Normal S2, Tachycardic Abdomen: Bowel Sounds Present, Soft, Non Tender, Non-Distended, No Hepato- splenomegaly, Obese Extremities: No edema, No Calf Tenderness Skin: No rashes, No breakdown Musculoskeletal: No Tenderness to Palpation of Joints or Extremities, No Muscle Wasting Neurological: Motor Exam 5/5 strength throughout, - - no clonus. Laboratory Results 07/06/20 11:33: WBC 10.3, RBC 3.64 L, Hgb 11.3 L, Hct 35.5 L, MCV 97.5, MCH 31.0, MCHC 31.8 L, RDW Std Deviation 51.1 H, RDW Coeff of Noe 14.4, Plt Count 212, MPV 9.3, Immature Gran % (Auto) 0.500, Neut % (Auto) 66.8, Lymph % (Auto) 19.6, [place] % (Auto) 12.0 H, Eos % (Auto) 0.7, Baso % (Auto) 0.4, Absolute Neuts (auto) 6.9, Absolute Lymphs (auto) 2.02, Nucleated RBC % 0, Differential Comment SCANNED 07/06/20 11:33: PT 13.2, INR 1.1, APTT 28.6 07/06/20 11:33: Sodium 140, Potassium 3.3 L, Chloride 104, Carbon Dioxide 33.0 H , Anion Gap 3 L, BUN 10, Creatinine 0.92, Estim Creat Clear Calc 50.91, Est GFR (MDRD) Af Amer 81, Est GFR (MDRD) Non-Af 67, BUN/Creatinine Ratio 10.9, Glucose 134 H, Calcium 8.1 L, Total Bilirubin 0.50, AST 16, ALT 20, Alkaline Phosphatase 72, Total Protein 5.8 L, Albumin 2.8 L, Globulin 3.0, Albumin/Globulin Ratio 0.9 07/06/20 11:33: Lactic Acid 0.9 07/06/20 11:46: COVID-19 (TAIWO) Pending 07/06/20 12:40: Urine Color Yellow, Urine Clarity Sl. Cloudy, Urine pH 6.0, Ur Specific [place] 1.015, Urine Protein 30 H, Urine Glucose (UA) 50 H, Urine Ketones Negative, Urine Occult Blood 50 H, Urine Nitrite Negative, Urine Bilirubin Negative, Urine Urobilinogen Normal, Ur Leukocyte Esterase 100 H, Urine RBC 0-5 SEEN, Urine WBC 10-25 SEEN, Ur Squamous Epith Cells 0-5 SEEN, Urine Bacteria 1+, Urine Mucus 0 SEEN Current Medications Vancomycin HCl 2,000 mg/ (Sodium Chloride) 540 mls @ 250 mls/hr IV X1 ONE Stop: 07/06/20 15:09 Assessment/Plan All Active Problems (Last Reviewed 06/10/20 @ 14:19 by Bridget Hernandez VENUE ATTENDANT, VENUE ATTENDANT- C) Pneumonia (Acute) COPD with acute exacerbation (Acute) 1. presumed pneumococcal pneumonia * continue with abx with azithromycin and ctx * check urinary antigens for strep and legionella. check SCx * follow up COVID-19 and respiratory panel 2. acute COPD exacerbation * increase prednisone to 40 mg and taper slowly back to 10mg * BDs 3. Nausea and vomiting * suspect 2/2 above * compazine 4. CML * not immunocompromised * monitor 5. VTE prophylaxis: enoxaparin 6. ACP: DW patient. She wishes to be DNRCCA, no intubation Inpatient E&M: 36637 Init Hosp L3
--- NOTE | 2020-07-06 14:11 | ED.RN ---
CALL TO [facility] TO NOTIFY OF PT'S ADMISSION. ALSO ATTEMPTED TO OBTAIN PHONE NUMBER FOR PT' UNCLE COMPA NGUYEN. DOES NOT HAVE ANY PERSONS LISTED TO CONTACT FOR PT IN CASE OF EMERGENCY.
[2020-07-06] MEDS: busPIRone 5 MG Tablet 10 MG PO ×2 (17:52→21:00)
[2020-07-06] MEDS: predniSONE 20 MG Tablet 40 MG PO (17:52)
[2020-07-06] MEDS: ALPRAZolam 0.5 MG Tablet PO (20:56)
[2020-07-06] MEDS: guaiFENesin 1,200 MG Tablet 1200 MG PO (20:59)
[2020-07-07] VITALS (8 sets, daily range): BP systolic 120–141; BP diastolic 81–90; PULSE 103–123; RESP 18–24; TEMP 36.7–36.9; O2SAT 93–97
[2020-07-07] MEDS: Ipratropium/Albuterol Sulfate 3 ML AMPUL.NEB INHALATION ×4 (00:22→19:02)
[2020-07-07] MEDS: busPIRone 5 MG Tablet 10 MG PO ×3 (05:15→21:11)
[2020-07-07 05:44] LABS: Absolute Lymphocyte Count 0.88 X10^3/uL (0.83-4.51); Absolute Neutrophil Count 5.8 X10^3/uL (2.0-7.7); Basophil# 0.01 X10^3/uL; Basophil% 0.1 % (0-1); Hematocrit 34.1 % (37-47); Hemoglobin 10.7 g/dL (12.0-15.0); Lymphocyte # 0.88 X10^3/ul (4.0); Lymphocyte % 12.7 % (19-41); Mean Corp Hgb Conc 31.4 g/dL (32-36); Mean Corpuscular Volume 98.8 fL (81-99); Mean Platelet Vol. 9.4 fl (6.2-12.0); Monocyte# 0.18 X10^3/uL; Monocyte% 2.6 % (0-10); NRBC Flagged by Analyzer 0 % (0-5); Neutrophil # 5.83 X10^3/uL (2.7-7.7); Neutrophil % 83.9 % (47-70); Platelet Count 171 K/mm3 (150-450); RBC Distribution Width SD 51.1 fl (35.1-43.9); Red Blood Count 3.45 M/mm3 (4.2-5.4)
[2020-07-07 06:00] LABS: Anion Gap 4 (5-15); BUN 9 mg/dL (7-18); BUN/Creat Ratio 11.7 RATIO (10-20); Calcium,Total 7.6 mg/dL (8.5-10.1); Chloride 107 mmol/L (98-107); Creatinine, Serum 0.77 mg/dL (0.55-1.02); EST Glomerular Filtration Rate 82 mL/min (>60); Est Glom Filt Rate - Afr Amer 99 mL/min (>60); Estimated Creatinine Clearance 63.75 ml/min; Glucose 161 mg/dL (74-106); Magnesium 1.8 mg/dL (1.6-2.6); Potassium 3.6 mmol/L (3.5-5.1); Sodium Level 140 mmol/L (136-145)
[2020-07-07] MEDS: dilTIAZem CD 240 MG Capsule PO (09:14)
[2020-07-07] MEDS: Loratadine 10 MG Tablet PO (09:14)
[2020-07-07] MEDS: predniSONE 20 MG Tablet 40 MG PO (09:14)
[2020-07-07] MEDS: guaiFENesin 1,200 MG Tablet 1200 MG PO ×2 (09:15→21:11)
[2020-07-07] MEDS: Sertraline 50 MG Tablet 75 MG PO (09:15)
[2020-07-07] MEDS: Pantoprazole Sodium 40 MG Tablet PO (09:15)
[2020-07-07] MEDS: Enoxaparin 40 MG/0.4 ML Syringe SC (09:15)
[2020-07-07] MEDS: Fluticasone 0.05% 1 SPRAY NASAL.SRY 2 SPRAY NASAL (09:17)
[2020-07-07] MEDS: ALPRAZolam 0.5 MG Tablet PO ×2 (09:17→21:11)
--- NOTE | 2020-07-07 10:35 | CASEMGMT ---
RN VERNON Face to Face with patient for initial transition planning/care coordination assessment. RN CM introduced self and role at [facility]. Patient sitting in chair, alert and oriented. Patient willing to participate in assessment and is able to answer all questions appropriately. Care providers, pharmacy, and demographics verified. Patient wishes to discharge home with resumption of services with [facility]. Patient states she has no further needs or concerns at this time. CM to follow for discharge planning needs that may arise. PCP: Jennifer Ceolho Specialists: Khai, shield runner; Shen, oncologist Preferred Pharmacy: [facility] Insurance: Medicaid Prescription Benefit: yes Living Will/HPOA: yes, uncle Joshua Craft LNOK: uncle Living Arrangements: Patient lives alone in a first floor apartment with no steps to enter. Patient independent for toileting, 1 assist for dressing and bathing. Transportation: uncle [facility]: Patient states she has raised toilet, grab bars, rollator, nebulizer, oxygen 4lpm continuous with portability through [facility]. Patient has penitentiary and aide services through [facility] P:[phone] F:[phone]. Disposition Plan: Patient to discharge home with resumption of services, family support and follow-up plans in place. Irina WERNER, RN, CM
--- NOTE | 2020-07-07 11:14 | CASEMGMT ---
Social Work Note REGINALD received message from Ester with [facility] requesting call back. Bridget is pt's CM for HomeCare Waiver program. fax [phone]. REGINALD placed a call to Ester, updated her on pt's admissions. Ester states pt is active with [facility] and has aides through them. Ester also states pt is active with [facility]. Ester request for discharge paperwork to be faxed once pt is discharged. REGINALD placed a call to [facility]iative and spoke with Dory and updated her on pt's admission to [facility]. Dory confirms pt is still active with Palliative Care. Irina Lyles POLITICAL RESEARCHER, TRANSPORTATION ATTENDANT
--- NOTE | 2020-07-07 12:25 | PCM.PN.HOSP ---
Patient Problems: Active and Suspected Problems (Last Reviewed 07/06/20 @ 13:[address] Chi Becerril, DO) Pneumonia (Acute) COPD with acute exacerbation (Acute) Left lower lobe pneumonia (Acute) Reason for Visit: pneumonia Subjective: feeling better. Vitals/I&O's: Vital Signs Temp Pulse Resp BP Pulse Ox 36.7 C 111 H 20 H 120/89 H 94 07/07/20 07:42 07/07/20 07:42 07/07/20 08:31 07/07/20 07:42 07/07/20 07:42 Oxygen Flow Rate (L/min) 4 Oxygen Delivery Method Nasal Cannula Weight: 83.8 kg Body Mass Index (BMI) 33.7 Intake and Output for Last 24 Hours 07/05/20 07/06/20 07/07/20 23:59 23:59 23:59 Intake Total 1944 420 / 420 Balance 1944 420 / 420 General: Alert, No apparent distress HEENT: Atraumatic, Normocephalic Oral: Moist Mucosa, No Gingival or Mucosal Lesions/ Ulcerations Neck: No Nodes, Thyroid Normal Size and Texture Lungs: Normal air movement, - - crackles in LLL Cardiovascular: Regular rate Abdomen: Bowel Sounds Present, Soft, Non Tender, Non-Distended Extremities: No edema, No Calf Tenderness Skin: No rashes, No breakdown Psych/Mental Status: Normal Affect, Appropriate Microbiology Past 72 Hours 07/06/20 12:40 Urine, Clean Catch Urine Culture - Preliminary Mixed Culture 07/06/20 12:40 Urine, Clean Catch Legionella Antigen - Final 07/06/20 12:40 Urine, Clean Catch Streptococcus pneumoniae Antigen (M - Final 07/06/20 11:46 Mucosa - Nose Respiratory Panel (PCR) - Final Laboratory Results 07/06/20 11:46: COVID-19 (TAIWO) Not Detected 07/06/20 12:40: Urine Color Yellow, Urine Clarity Sl. Cloudy, Urine pH 6.0, Ur Specific [place] 1.015, Urine Protein 30 H, Urine Glucose (UA) 50 H, Urine Ketones Negative, Urine Occult Blood 50 H, Urine Nitrite Negative, Urine Bilirubin Negative, Urine Urobilinogen Normal, Ur Leukocyte Esterase 100 H, Urine RBC 0-5 SEEN, Urine WBC 10-25 SEEN, Ur Squamous Epith Cells 0-5 SEEN, Urine Bacteria 1+, Urine Mucus 0 SEEN 07/07/20 05:25: WBC 7.0, RBC 3.45 L, Hgb 10.7 L, Hct 34.1 L, MCV 98.8, MCH 31.0, MCHC 31.4 L, RDW Std Deviation 51.1 H, RDW Coeff of Noe 14.0, Plt Count 171, MPV 9.4, Immature Gran % (Auto) 0.700, Neut % (Auto) 83.9 H, Lymph % (Auto) 12.7 L, [place] % (Auto) 2.6, Eos % (Auto) 0.0, Baso % (Auto) 0.1, Absolute Neuts (auto) 5.8, Absolute Lymphs (auto) 0.88, Nucleated RBC % 0 07/07/20 05:25: Sodium 140, Potassium 3.6, Chloride 107, Carbon Dioxide 29.0, Anion Gap 4 L, BUN 9, Creatinine 0.77, Estim Creat Clear Calc 63.75, Est GFR (MDRD) Af Amer 99, Est GFR (MDRD) Non-Af 82, BUN/Creatinine Ratio 11.7, Glucose 161 H, Calcium 7.6 L, Magnesium 1.8 Current Medications Acetaminophen (Tylenol) 650 mg PO Q6H PRN PRN PRN Reason: Pain Score 1-10/Temp > 100.7 F Albuterol Sulfate (Ventolin Aerosols) 2.5 mg INHALATION Q2H PRN PRN PRN Reason: Shortness of Breath/Wheezing Albuterol/Ipratropium (Duoneb) 3 ml INHALATION Q6H.RT [facility] Last Admin: 07/07/20 06:44 Dose: 3 ml Documented by: Alendronate Sodium (Fosamax) 70 mg PO QWEEK [facility] Alprazolam (Xanax) 0.5 mg PO TID PRN PRN Reason: ANXIETY Last Admin: 07/07/20 09:17 Dose: 0.5 mg Documented by: Buspirone HCl (Buspar) 10 mg PO TID [facility] Last Admin: 07/07/20 05:15 Dose: 10 mg Documented by: Diltiazem HCl (Cardizem Cd) 240 mg PO DAILY [facility] Last Admin: 07/07/20 09:14 Dose: 240 mg Documented by: Enoxaparin Sodium (Lovenox) 40 mg SC DAILY [facility] Last Admin: 07/07/20 09:15 Dose: 40 mg Documented by: Fluticasone Propionate (Flonase Nasal [place]) 2 spray NASAL DAILY [facility] Last Admin: 07/07/20 09:17 Dose: 2 spray Documented by: Guaifenesin (Mucinex) 1,200 mg PO BID [facility] Last Admin: 07/07/20 09:15 Dose: 1,200 mg Documented by: Ceftriaxone Sodium 2 gm/ (Sodium Chloride) 50 mls @ 100 mls/hr IV Q24@2200 [facility] Stop: 07/13/20 22:01 Last Infusion: 07/06/20 21:30 Dose: Infused Documented by: Azithromycin 500 mg/ Dextrose 255 mls @ 250 mls/hr IV Q24@2200 [facility] Stop: 07/11/20 22:01 Last Infusion: 07/06/20 18:53 Dose: Infused Documented by: Imatinib Mesylate (Gleevec) 400 mg PO DAILY [facility] Loratadine (Claritin) 10 mg PO DAILY [facility] Last Admin: 07/07/20 09:14 Dose: 10 mg Documented by: Oxycodone HCl (Oxyir) 5 mg PO TID PRN PRN Reason: Pain Score 1-10/10 Pantoprazole Sodium (Protonix) 40 mg PO DAILY [facility] Last Admin: 07/07/20 09:15 Dose: 40 mg Documented by: [facility] Last Admin: 07/07/20 09:14 Dose: 20 meq Documented by: Prednisone () 40 mg PO DAILY@0800 [facility] Last Admin: 07/07/20 09:14 Dose: 40 mg Documented by: Prochlorperazine Edisylate (Compazine Iv) 5 mg IV Q6H PRN PRN PRN Reason: NAUSEA/VOMITING Prochlorperazine Maleate (Compazine Tablet) 10 mg PO Q6H PRN PRN Reason: NAUSEA Sertraline HCl (Zoloft) 75 mg PO DAILY [facility] Last Admin: 07/07/20 09:15 Dose: 75 mg Documented by: Sodium Chloride () 10 - 40 ml IV UD PRN PRN Reason: SALINE FLUSH STROKE Vital Signs/Narrative: Vital Signs Resp 07/07/20 08:31 20 H Medical Necessity - Tobacco Use Smoking Status: Former smoker Tobacco Use: Cigarettes Assessment/Plan All Active Problems (Last Reviewed 07/06/20 @ 13:[address] Chi Becerril, DO) Pneumonia (Acute) COPD with acute exacerbation (Acute) Left lower lobe pneumonia (Acute) 1. presumed pneumococcal pneumonia continue with abx with azithromycin and ctx check urinary antigens for strep and legionella. check SCx COVID-19, resp panel, legionella and strep antigen negative 2. acute COPD exacerbation improving increase prednisone to 40 mg and taper slowly back to 10mg BDs 3. Nausea and vomiting suspect 2/2 above compazine 4. CML not immunocompromised monitor 5. VTE prophylaxis: enoxaparin 6. ACP: DW patient. She wishes to be DNRCCA, no intubation 7. disposition: discharge in next 1-2 days Inpatient E&M: 36043 Subs Hosp L2
[2020-07-07] MEDS: oxyCODONE 5 MG Tablet PO (21:10)
[2020-07-07] MEDS: 0.9% Saline Lock 10 ML Syringe IV (21:11)
[2020-07-08] VITALS (9 sets, daily range): BP systolic 126–148; BP diastolic 58–90; PULSE 107–119; RESP 18–24; TEMP 36.6–36.8; O2SAT 95–97
[2020-07-08] MEDS: Ipratropium/Albuterol Sulfate 3 ML AMPUL.NEB INHALATION ×3 (01:07→13:58)
[2020-07-08] MEDS: busPIRone 5 MG Tablet 10 MG PO ×2 (05:37→14:54)
[2020-07-08] MEDS: 0.9% Saline Lock 10 ML Syringe IV (05:37)
[2020-07-08] MEDS: oxyCODONE 5 MG Tablet PO (05:40)
[2020-07-08] MEDS: ALPRAZolam 0.5 MG Tablet PO ×2 (05:40→14:58)
[2020-07-08] MEDS: Sertraline 50 MG Tablet 75 MG PO (09:03)
[2020-07-08] MEDS: Loratadine 10 MG Tablet PO (09:03)
[2020-07-08] MEDS: dilTIAZem CD 240 MG Capsule PO (09:03)
[2020-07-08] MEDS: guaiFENesin 1,200 MG Tablet 1200 MG PO (09:04)
[2020-07-08] MEDS: predniSONE 20 MG Tablet 40 MG PO (09:04)
[2020-07-08] MEDS: Enoxaparin 40 MG/0.4 ML Syringe SC (09:04)
[2020-07-08] MEDS: Fluticasone 0.05% 1 SPRAY NASAL.SRY 2 SPRAY NASAL (09:04)
[2020-07-08] MEDS: Pantoprazole Sodium 40 MG Tablet PO (09:05)
[2020-07-08] MEDS: Albuterol 2.5 MG/3 ML VIAL.NEB. INHALATION (11:08)
--- NOTE | 2020-07-08 13:31 | PN_ITS ---
Patient Problems: Active and Suspected Problems (Last Reviewed 07/06/20 @ 13:[address] Chi Becerril, DO) Pneumonia (Acute) COPD with acute exacerbation (Acute) Left lower lobe pneumonia (Acute) Reason for Visit: pneumonia Subjective: breathing well. Vitals/I&O's: Vital Signs Temp Pulse Resp BP Pulse Ox 36.6 C 108 H 18 129/76 H 96 07/08/20 07:23 07/08/20 11:08 07/08/20 11:08 07/08/20 07:23 07/08/20 07:23 Oxygen Flow Rate (L/min) 4 Oxygen Delivery Method Nasal Cannula Weight: 83.8 kg Body Mass Index (BMI) 33.7 Intake and Output for Last 24 Hours 07/06/20 07/07/20 07/08/20 23:59 23:59 23:59 Intake Total 1944 1205 / 1805 1300 / 1300 Balance 1944 1205 / 1805 1300 / 1300 General: Alert, No apparent distress HEENT: Atraumatic, Normocephalic Oral: Moist Mucosa, No Gingival or Mucosal Lesions/ Ulcerations Neck: No Nodes, Thyroid Normal Size and Texture Lungs: Clear to auscultation, Normal air movement, No rhonchi, No wheeze, No rales Cardiovascular: Regular rate, Regular Rhythm, Normal S1, Normal S2, No murmurs Abdomen: Bowel Sounds Present, Soft, Non Tender, Non-Distended, No Hepato- splenomegaly Extremities: No edema, No Calf Tenderness Skin: No rashes, No breakdown Psych/Mental Status: Normal Affect, Appropriate Microbiology Past 72 Hours 07/07/20 14:35 Sputum, Induced/Lukens Gram Stain - Final 07/07/20 14:35 Sputum, Induced/Lukens Respiratory Culture - Preliminary Appears to be normal respiratory jerod. Further studies to follow. 07/06/20 12:40 Urine, Clean Catch Urine Culture - Final Mixed Gram Positive Organisms 07/06/20 11:55 Blood Culture (Wb) - Right Hand Blood Culture - Preliminary No growth in 48 hours. 07/06/20 11:33 Blood Culture (Wb) - Anticubital Left Blood Culture - Preliminary No growth in 48 hours. 07/06/20 12:40 Urine, Clean Catch Legionella Antigen - Final 07/06/20 12:40 Urine, Clean Catch Streptococcus pneumoniae Antigen (M - Final 07/06/20 11:46 Mucosa - Nose Respiratory Panel (PCR) - Final Current Medications Acetaminophen (Tylenol) 650 mg PO Q6H PRN PRN PRN Reason: Pain Score 1-10/Temp > 100.7 F Albuterol Sulfate (Ventolin Aerosols) 2.5 mg INHALATION Q2H PRN PRN PRN Reason: Shortness of Breath/Wheezing Last Admin: 07/08/20 11:08 Dose: 2.5 mg Documented by: Albuterol/Ipratropium (Duoneb) 3 ml INHALATION Q6H.RT [facility] Last Admin: 07/08/20 07:13 Dose: 3 ml Documented by: Alendronate Sodium (Fosamax) 70 mg PO QWEEK [facility] Alprazolam (Xanax) 0.5 mg PO TID PRN PRN Reason: ANXIETY Last Admin: 07/08/20 05:40 Dose: 0.5 mg Documented by: Buspirone HCl (Buspar) 10 mg PO TID [facility] Last Admin: 07/08/20 05:37 Dose: 10 mg Documented by: Diltiazem HCl (Cardizem Cd) 240 mg PO DAILY [facility] Last Admin: 07/08/20 09:03 Dose: 240 mg Documented by: Enoxaparin Sodium (Lovenox) 40 mg SC DAILY [facility] Last Admin: 07/08/20 09:04 Dose: 40 mg Documented by: Fluticasone Propionate (Flonase Nasal [place]) 2 spray NASAL DAILY [facility] Last Admin: 07/08/20 09:04 Dose: 2 spray Documented by: Guaifenesin (Mucinex) 1,200 mg PO BID [facility] Last Admin: 07/08/20 09:04 Dose: 1,200 mg Documented by: Ceftriaxone Sodium 2 gm/ (Sodium Chloride) 50 mls @ 100 mls/hr IV Q24@2200 [facility] Stop: 07/13/20 22:01 Last Infusion: 07/07/20 23:17 Dose: Infused Documented by: Azithromycin 500 mg/ Dextrose 255 mls @ 250 mls/hr IV Q24@2200 [facility] Stop: 07/11/20 22:01 Last Infusion: 07/07/20 22:13 Dose: Infused Documented by: [facility]inib [facility] Last Admin: 07/07/20 16:34 Dose: 400 mg Documented by: Loratadine (Claritin) 10 mg PO DAILY [facility] Last Admin: 07/08/20 09:03 Dose: 10 mg Documented by: Oxycodone HCl (Oxyir) 5 mg PO TID PRN PRN Reason: Pain Score 1-10 Last Admin: 07/08/20 05:40 Dose: 5 mg Documented by: Pantoprazole Sodium (Protonix) 40 mg PO DAILY [facility] Last Admin: 07/08/20 09:05 Dose: 40 mg Documented by: Potassium Chloride (K-Dur) 20 meq PO BIDCM [facility] Last Admin: 07/08/20 09:02 Dose: 20 meq Documented by: Prednisone () 40 mg PO DAILY@0800 [facility] Last Admin: 07/08/20 09:04 Dose: 40 mg Documented by: Prochlorperazine Edisylate (Compazine Iv) 5 mg IV Q6H PRN PRN PRN Reason: NAUSEA/VOMITING Prochlorperazine Maleate (Compazine Tablet) 10 mg PO Q6H PRN PRN Reason: NAUSEA Sertraline HCl (Zoloft) 75 mg PO DAILY [facility] Last Admin: 07/08/20 09:03 Dose: 75 mg Documented by: Sodium Chloride () 10 - 40 ml IV UD PRN PRN Reason: SALINE FLUSH Last Admin: 07/08/20 05:37 Dose: 10 ml Documented by: STROKE Vital Signs/Narrative: Vital Signs Pulse Resp 07/08/20 11:08 108 H 18 Medical Necessity - Tobacco Use Smoking Status: Former smoker Tobacco Use: Cigarettes Assessment/Plan All Active Problems (Last Reviewed 07/06/20 @ 13:[address] Chi Becerril, DO) Pneumonia (Acute) COPD with acute exacerbation (Acute) Left lower lobe pneumonia (Acute) 1. presumed pneumococcal pneumonia * continue with abx with azithromycin and ctx * COVID-19, resp panel, legionella and strep antigen negative 2. acute COPD exacerbation * improving * increase prednisone to 40 mg and taper slowly back to 10mg * BDs 3. Nausea and vomiting * suspect 2/2 above * compazine 4. CML * not immunocompromised * monitor 5. VTE prophylaxis: enoxaparin 6. ACP: DW patient. She wishes to be DNRCCA, no intubation 7. debility: seen by therapy who recommends additional therapy. At baseline, she states she furniture walks at home. Inpatient E&M: 20438 Subs Hosp L2
--- NOTE | 2020-07-08 13:34 | CASEMGMT ---
ESTEPHANIA CM Note. Reviewed PT/OT notes. Intro role of CM to patient. Reviewed physical and occupational therapy notes with patient. She states she is not active at home, and generally uses her electric wheelchair. She has an aide that comes 4x week to help her and skilled services through [facility] (P:[phone] F:[phone]). DC Plan for home will be to resume [facility] aide and Home Health Care. Antelmo WERNER RN AC
--- NOTE | 2020-07-08 13:43 | CASEMGMT ---
RN CM Note. Reviewed PT/OT notes. Intro role of CM to patient. Reviewed physical and occupational therapy notes with patient. She states she is not active at home, and generally uses her electric wheelchair. Discussed SNF for short term rehab and patient is refusing. She has an aide that comes 4x week to help her and skilled services through [facility] (P:[phone] F:[phone]). Per patient, she feels she will be able to return home with current services. -Hospitalist updated on dc plan. DC Plan for home will be to resume [facility] aide and Home Health Care. Antelmo WERNER RN AC
--- NOTE | 2020-07-08 13:47 | DCINST_ITS ---
- Discharge Diagnoses Current Active Problems: Current Active and Chronic Problems (Last Reviewed 07/06/20 @ 13:[address] Chi Becerril, DO) Pneumonia (Acute) COPD with acute exacerbation (Acute) Left lower lobe pneumonia (Acute) Chronic hypoxemic respiratory failure (Chronic) You will use the following diet at home:: No restrictions Your food should be the consistency of: Regular Your liquids should be the consistency of: Regular/Thin Call your doctor if you observe: Fever of 101 or Higher, Shortness of breath Allergies/Adverse Reactions: Allergies Penicillins Allergy (Severe, Verified 07/06/20 11:15) Hives Sulfa (Sulfonamide Antibiotics) Allergy (Intermediate, Verified 07/06/20 15:58) Hives azithromycin Adverse Reaction (Severe, Verified 07/06/20 11:15) Diarrhea codeine Adverse Reaction (Severe, Verified 07/06/20 11:15) Vomiting ondansetron [From Zofran] Adverse Reaction (Severe, Verified 07/06/20 15:58) Nausea ondansetron HCl [From Zofran (as hydrochloride)] Adverse Reaction (Severe, Verified 07/06/20 11:15) Nausea pregabalin [From Lyrica] Adverse Reaction (Severe, Verified 07/06/20 11:15) i can't see propoxyphene napsylate [From Darvocet-N 100] Adverse Reaction (Severe, Verified 07/06/20 11:15) Vomiting Medications to take at Discharge Albuterol Aerosols [Ventolin Aerosols] 2.5 mg INHALATION Q4H PRN PRN 10/18/18 Budesonide/Formoterol Fumarate [Symbicort 160-4.5 Mcg Inhaler] 2 puff IH BID 10/18/18 Diltiazem CD [Cardizem CD] 240 mg PO DAILY 10/18/18 Sertraline HCl [Zoloft] 50 mg PO DAILY 10/18/18 albuterol sulfate 90 mcg/actuation aerosol inhaler 2 puff INHALATION Q4H PRN PRN #18 g 01/14/19 potassium chloride 20 mEq tablet,extended release(part/cryst) 20 meq PO BID 04/14/19 omeprazole 40 mg capsule,delayed release 40 mg PO DAILY 04/15/19 sertraline 25 mg tablet 25 mg PO DAILY 04/15/19 alprazolam 0.5 mg tablet 0.5 mg PO Q6H PRN tab 07/15/19 buspirone 10 mg tablet 20 mg PO TID tab 07/15/19 prochlorperazine maleate 10 mg tablet 10 mg PO Q6H PRN 07/15/19 fluticasone propionate 50 mcg/actuation nasal spray,suspension 2 spray INTRANASAL DAILY #50 mcg 12/31/19 ipratropium 0.5 mg-albuterol 3 mg (2.5 mg base)/3 mL nebulization soln 3 ml INHALATION Q6H PRN ml 03/31/20 Alendronate Sodium [Fosamax] 70 mg PO SA 07/06/20 Azelastine HCl 1 spray NS BID 07/06/20 Imatinib Mesylate [Gleevec] 400 mg PO DAILY 07/06/20 Lactobacillus Acidophilus [Probiotic Acidophilus] 1 ea PO DAILY 07/06/20 Loratadine 10 mg PO DAILY 07/06/20 Oxycodone [Oxyir] 10 mg PO Q6H PRN PRN 07/06/20 Doxycycline 100 mg PO BID #10 cap 07/08/20 Prednisone 1 tab PO DAILY #22 tab 07/08/20 The following prescriptions were given: Doxycycline 100 mg PO BID #10 cap Transmission Status: Pending to [facility] Prednisone 1 tab PO DAILY #22 tab Transmission Status: Pending to [facility] Primary Care Physician: Jennifer Coelho NP, VP OF TECHNOLOGY-C [Primary Care Provider] - Within 1 Week Test Results: Test results from this visit will be discussed in further detail at your follow- up appointment, if applicable. Proposed Discharge Date: 07/08/20
--- NOTE | 2020-07-08 13:48 | PCM.DC.SUM ---
Discharge Date and Diagnosis - Problem List Patient Problems: Active and Suspected Problems (Last Reviewed 07/06/20 @ 13:[address] Chi Becerril DO) Pneumonia (Acute) COPD with acute exacerbation (Acute) Left lower lobe pneumonia (Acute) Date of Admission: 07/06/20 Date of Discharge: 07/08/20 - Primary Discharge Diagnosis Acute Problems: Active Problems (Last Reviewed 07/06/20 @ 13:[address] Chi Becerril DO) Pneumonia (Acute) COPD with acute exacerbation (Acute) Left lower lobe pneumonia (Acute) - Secondary Discharge Diagnosis Chronic Problems: Chronic Problems (Last Reviewed 07/06/20 @ 13:[address] 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 Electronically Signed: Presley Wadecarson, at 12:32 EDT , Service support , Operations: None Procedures: None Summary of Care Provided: The patient is a 59 year old F presents with a several day history of shortness of breath. Patient had a low-grade temperature as outpatient. In the emergency room, patient was found to have left lower lobe infiltrate. Patient history of did receive cefepime and vancomycin. Patient was managed with azithromycin and ceftriaxone in hospital. Patient has all had a flareup of her COPD and was on prednisone as well as bronchodilators. Overall, the patient has done better and is medically ready for discharge. Patient states that she just feels weak and at baseline, she does have a fair to poor performance status. Patient states at home she normally furniture walks and uses a mobile scooter at times. Patient was seen by therapy who recommended additional therapy. Patient [facility] so patient be discharged home with home care. [] Patient Problems: Active and Suspected Problems (Last Reviewed 07/06/20 @ 13:[address] Chi Becerril, DO) Pneumonia (Acute) COPD with acute exacerbation (Acute) Left lower lobe pneumonia (Acute) - Physical Exam Vitals/I&O's: Vital Signs Temp Pulse Resp BP Pulse Ox 36.6 C 108 H 18 129/76 H 96 07/08/20 07:23 07/08/20 11:08 07/08/20 11:08 07/08/20 07:23 07/08/20 07:23 Oxygen Flow Rate (L/min) 4 Oxygen Delivery Method Nasal Cannula Weight: 83.8 kg Body Mass Index (BMI) 33.7 Intake and Output for Last 24 Hours 07/06/20 07/07/20 07/08/20 23:59 23:59 23:59 Intake Total 1944 1205 / 1805 1300 / 1300 Balance 1944 1205 / 1805 1300 / 1300 General: Alert, No apparent distress HEENT: Atraumatic, Normocephalic Oral: Moist Mucosa, No Gingival or Mucosal Lesions/ Ulcerations Neck: No Nodes, Thyroid Normal Size and Texture Lungs: Clear to auscultation, Normal air movement, No rhonchi, No wheeze Cardiovascular: Regular rate, Regular Rhythm, Normal S1, Normal S2 Abdomen: Bowel Sounds Present, Soft, Non Tender, Non-Distended Extremities: No edema, No Calf Tenderness Microbiology Past 72 Hours 07/07/20 14:35 Sputum, Induced/Lukens Gram Stain - Final 07/07/20 14:35 Sputum, Induced/Lukens Respiratory Culture - Preliminary Appears to be normal respiratory jerod. Further studies to follow. 07/06/20 12:40 Urine, Clean Catch Urine Culture - Final Mixed Gram Positive Organisms 07/06/20 11:55 Blood Culture (Wb) - Right Hand Blood Culture - Preliminary No growth in 48 hours. 07/06/20 11:33 Blood Culture (Wb) - Anticubital Left Blood Culture - Preliminary No growth in 48 hours. 07/06/20 12:40 Urine, Clean Catch Legionella Antigen - Final 07/06/20 12:40 Urine, Clean Catch Streptococcus pneumoniae Antigen (M - Final 07/06/20 11:46 Mucosa - Nose Respiratory Panel (PCR) - Final Current Medications Acetaminophen (Tylenol) 650 mg PO Q6H PRN PRN PRN Reason: Pain Score 1-10/Temp > 100.7 F Albuterol Sulfate (Ventolin Aerosols) 2.5 mg INHALATION Q2H PRN PRN PRN Reason: Shortness of Breath/Wheezing Last Admin: 07/08/20 11:08 Dose: 2.5 mg Documented by: Albuterol/Ipratropium (Duoneb) 3 ml INHALATION Q6H.RT [facility] Last Admin: 07/08/20 07:13 Dose: 3 ml Documented by: Alendronate Sodium (Fosamax) 70 mg PO QWEEK [facility] Alprazolam (Xanax) 0.5 mg PO TID PRN PRN Reason: ANXIETY Last Admin: 07/08/20 05:40 Dose: 0.5 mg Documented by: Buspirone HCl (Buspar) 10 mg PO TID [facility] Last Admin: 07/08/20 05:37 Dose: 10 mg Documented by: Diltiazem HCl (Cardizem Cd) 240 mg PO DAILY [facility] Last Admin: 07/08/20 09:03 Dose: 240 mg Documented by: Enoxaparin Sodium (Lovenox) 40 mg SC DAILY [facility] Last Admin: 07/08/20 09:04 Dose: 40 mg Documented by: Fluticasone Propionate (Flonase Nasal [place]) 2 spray NASAL DAILY [facility] Last Admin: 07/08/20 09:04 Dose: 2 spray Documented by: Guaifenesin (Mucinex) 1,200 mg PO BID [facility] Last Admin: 07/08/20 09:04 Dose: 1,200 mg Documented by: Ceftriaxone Sodium 2 gm/ (Sodium Chloride) 50 mls @ 100 mls/hr IV Q24@2200 [facility] Stop: 07/13/20 22:01 Last Infusion: 07/07/20 23:17 Dose: Infused Documented by: Azithromycin 500 mg/ Dextrose 255 mls @ 250 mls/hr IV Q24@2200 [facility] Stop: 07/11/20 22:01 Last Infusion: 07/07/20 22:13 Dose: Infused Documented by: [facility] Last Admin: 07/07/20 16:34 Dose: 400 mg Documented by: Loratadine (Claritin) 10 mg PO DAILY [facility] Last Admin: 07/08/20 09:03 Dose: 10 mg Documented by: Oxycodone HCl (Oxyir) 5 mg PO TID PRN PRN Reason: Pain Score 1-10/10 Last Admin: 07/08/20 05:40 Dose: 5 mg Documented by: Pantoprazole Sodium (Protonix) 40 mg PO DAILY [facility] Last Admin: 07/08/20 09:05 Dose: 40 mg Documented by: Potassium Chloride (K-Dur) 20 meq PO BIDCM [facility] Last Admin: 07/08/20 09:02 Dose: 20 meq Documented by: Prednisone () 40 mg PO DAILY@0800 [facility] Last Admin: 07/08/20 09:04 Dose: 40 mg Documented by: Prochlorperazine Edisylate (Compazine Iv) 5 mg IV Q6H PRN PRN PRN Reason: NAUSEA/VOMITING Prochlorperazine Maleate (Compazine Tablet) 10 mg PO Q6H PRN PRN Reason: NAUSEA Sertraline HCl (Zoloft) 75 mg PO DAILY [facility] Last Admin: 07/08/20 09:03 Dose: 75 mg Documented by: Sodium Chloride () 10 - 40 ml IV UD PRN PRN Reason: SALINE FLUSH Last Admin: 07/08/20 05:37 Dose: 10 ml Documented by: Discharge Diet: No Restrictions Discharge Activity: Return to Normal Activity Call your doctor if you observe: Fever of 101 or Higher, Shortness of breath Home Medications: Medications to take at Discharge Albuterol Aerosols [Ventolin Aerosols] 2.5 mg INHALATION Q4H PRN PRN 10/18/18 Budesonide/Formoterol Fumarate [Symbicort 160-4.5 Mcg Inhaler] 2 puff IH BID 10/18/18 Diltiazem CD [Cardizem CD] 240 mg PO DAILY 10/18/18 Sertraline HCl [Zoloft] 50 mg PO DAILY 10/18/18 albuterol sulfate 90 mcg/actuation aerosol inhaler 2 puff INHALATION Q4H PRN PRN #18 g 01/14/19 potassium chloride 20 mEq tablet,extended release(part/cryst) 20 meq PO BID 04/14/19 omeprazole 40 mg capsule,delayed release 40 mg PO DAILY 04/15/19 sertraline 25 mg tablet 25 mg PO DAILY 04/15/19 alprazolam 0.5 mg tablet 0.5 mg PO Q6H PRN tab 07/15/19 buspirone 10 mg tablet 20 mg PO TID tab 07/15/19 prochlorperazine maleate 10 mg tablet 10 mg PO Q6H PRN 07/15/19 fluticasone propionate 50 mcg/actuation nasal spray,suspension 2 spray INTRANASAL DAILY #50 mcg 12/31/19 ipratropium 0.5 mg-albuterol 3 mg (2.5 mg base)/3 mL nebulization soln 3 ml INHALATION Q6H PRN ml 03/31/20 Alendronate Sodium [Fosamax] 70 mg PO SA 07/06/20 Azelastine HCl 1 spray NS BID 07/06/20 Imatinib Mesylate [Gleevec] 400 mg PO DAILY 07/06/20 Lactobacillus Acidophilus [Probiotic Acidophilus] 1 ea PO DAILY 07/06/20 Loratadine 10 mg PO DAILY 07/06/20 Oxycodone [Oxyir] 10 mg PO Q6H PRN PRN 07/06/20 Doxycycline 100 mg PO BID #10 cap 07/08/20 Prednisone 1 tab PO DAILY #22 tab 07/08/20 Following Prescriptions Were Given to Patient: Doxycycline 100 mg PO BID #10 cap Transmission Status: [facility]ending to [facility] Prednisone 1 tab PO DAILY #22 tab Transmission Status: Pending to [facility] Primary Care Physician: Jennifer Coelho NP, G[employer] MAIN [employer]TER-[employer] [Primary Care Provider] - Within 1 Week Disposition: Home with Home Health Minutes spent on discharge:: 32 Patient Condition:: Fair Medical Necessity - Tobacco Use Smoking Status: Former smoker Tobacco Use: Cigarettes Meaningful Use Info Meaningful Use Diagnoses (Choose all that apply): None applicable Inpatient E&M: 86696 Disch Hosp
--- NOTE | 2020-07-08 14:10 | CASEMGMT ---
Social Work Note Pt is discharging home today. REGINALD placed a call to Ester with [facility] and updated her pt will be discharged home today. REGINALD faxed discharge paperwork to Ester. REGINALD also placed a call to [facility]'s Palliative and left message for Marisa Flowers LPN, updating her on pt's discharge. REGINALD faxed discharge paperwork to Marisa . Irina Lyles COMPUTER SCIENCE INTERN, WORKERS COMPENSATION CLAIMS SUPERVISOR
--- NOTE | 2020-07-08 14:14 | CASEMGMT ---
ESTEPHANIA CM Note: Call to [facility] to update dc today. Start of care will be 07/09/20. DC instructions and summary faxed to [facility]. Antelmo WERNER RN ACM
--- NOTE | 2020-07-09 11:23 | CASEMGMT ---
ESTEPHANIA JUNIOR DC PHONE CALL DC DATE: 07/08/20 DC DISPOSITION: Home with [facility] DC DIAGNOSIS: pneumonia LACE/STRATA: 07/10 F/U APPTS MADE PRIOR TO DC: no PRESCRIPTIONS ACQUIRED BY PT: yes Intro role of CM to patient via phone. The patient states she is doing well, has no questions re: medications, f/u or instructions. States the [facility] called this am and will see her in the afternoon. No care improvement suggestions were given and the patient stated she had excellent care. Antelmo WERNER RN ACM
== END 2020-07-08 16:17 | disposition home health service (06) | DRG 139 ==
LOC: ED 14:06 → MS3 07-07 06:18
PROVIDERS: Emergency Provider Emergency Medicine; PCP Nurse Practitioner Family
DX: J18.9 Pneumonia, unspecified organism (principal); C92.10 Chronic myeloid leukemia, BCR/ABL-positive, not having achieved remission; J44.1 Chronic obstructive pulmonary disease with (acute) exacerbation; J44.0 Chronic obstructive pulmonary disease with (acute) lower respiratory infection; K51.90 Ulcerative colitis, unspecified, without complications; J96.11 Chronic respiratory failure with hypoxia; Z99.81 Dependence on supplemental oxygen; E87.6 Hypokalemia; M79.7 Fibromyalgia; F41.1 Generalized anxiety disorder; E66.9 Obesity, unspecified; Z68.35 Body mass index [BMI] 35.0-35.9, adult; Z91.14 Patient's other noncompliance with medication regimen; Z87.891 Personal history of nicotine dependence; F32.9 Major depressive disorder, single episode, unspecified; Z79.899 Other long term (current) drug therapy; Z79.51 Long term (current) use of inhaled steroids; R11.2 Nausea with vomiting, unspecified
CPT/HCPCS: 87635; 36415; 71045; 80048; 80053; 81001; 83605; 83735; 85025; 85610; 85730; 87040; 87070; 87086; 87088; 87205; 87449; 87633; 93005; 94640; 96365; 96366; 96367; 96372; 96375; 97162; 97166; 99221; 99251; 99285; J7030; J7040; A4216; G0378; G0463; J0696; U0003

== ENCOUNTER 2020-07-20 18:53 | Inpatient (IN) | payer MEDICAID, SELFPAY ==
[2020-07-06 15:46] VITALS: BMI 33.7
[2020-07-20] VITALS (9 sets, daily range): BP systolic 121–135; BP diastolic 63–84; PULSE 103–123; RESP 15–24; TEMP 36.7–38.1; O2SAT 89–95; BMI 36.6; BMI 36.0; BMI 36.3
--- NOTE | 2020-07-20 19:02 | RAD_ITS ---
STUDY: X-RAY CHEST REASON FOR EXAM: Female, 59 years old. Shortness of breath, fever. TECHNIQUE: Frontal view COMPARISON: 07/06/2020. FINDINGS: The lungs are not fully expanded. Persistent opacity at the left costophrenic angle. Right basilar atelectasis. Cardiomegaly. Normal mediastinum and sven. Normal visualized pulmonary arteries. Normal visualized aortic arch and descending thoracic aorta. Degenerative changes and scoliosis of the thoracic spine. Normal visualized ribs, clavicles, and shoulders. There is no demonstrated abnormality of the visualized soft tissue structures of the upper abdomen. RAD/Chest 1 View (Portable) IMPRESSION: Persistent left costophrenic angle opacity similar to previous study. Right basilar atelectasis. Mild cardiomegaly. Electronically Signed: Bruce Cerda DO at 20:28 EDT Tel [phone], Service support ,
--- NOTE | 2020-07-20 19:02 | EKG12_ITS ---
Test Reason : SOB Blood Pressure : / mmHG Vent. Rate : 121 BPM Atrial Rate : 121 BPM P-R Int : 140 ms QRS Dur : 094 ms QT Int : 352 ms P-R-T Axes : 024 124 052 degrees QTc Int : 499 ms Sinus tachycardia with Premature atrial complexes Incomplete right bundle branch block Right ventricular hypertrophy with repolarization abnormality Nonspecific T wave abnormality Abnormal ECG Confirmed by SURYA MURO, JEISON ([id number]), school photograph editor ANGE TOUSSAINT ([id number]) on 07/26/2020 8:19:32 A M Referred By: TONI Confirmed By:EROS LONDON MD
--- NOTE | 2020-07-20 19:07 | ED.DCSUM_ITS ---
History of Present Illness Chief Complaint: Shortness of Breath Informant: Patient Narrative: 39-year-old female with past medical history of COPD oxygen dependent at 4 L by nasal cannula presents with increasing shortness of breath and fever. Patient was discharged from the hospital 12 days ago following a 3-day stay for pneumonia. Patient just finished her antibiotics 2 days ago. States that she has had worsening shortness of breath and developed a fever yesterday. Admits to nausea and vomiting. Denies any diarrhea or abdominal pain. Denies any urinary symptoms. Denies any increased oxygen demand. Patient is a former smoker who quit approximately 7 years ago. Past Medical History - Allergies and Home Meds Allergies/Adverse Reactions: Allergies Penicillins Allergy (Severe, Verified 07/20/20 19:09) Hives Sulfa (Sulfonamide Antibiotics) Allergy (Intermediate, Verified 07/20/20 19:09) Hives azithromycin Adverse Reaction (Severe, Verified 07/20/20 19:09) Diarrhea codeine Adverse Reaction (Severe, Verified 07/20/20 19:09) Vomiting ondansetron [From Zofran] Adverse Reaction (Severe, Verified 07/20/20 19:09) Nausea ondansetron HCl [From Zofran (as hydrochloride)] Adverse Reaction (Severe, Verified 07/20/20 19:09) Nausea pregabalin [From Lyrica] Adverse Reaction (Severe, Verified 07/20/20 19:09) i can't see propoxyphene napsylate [From Darvocet-N 100] Adverse Reaction (Severe, Verified 07/20/20 19:09) Vomiting Primary Care Physician: Jennifer Coelho NP, [employer] [Primary Care Provider] - Prior records reviewed: Yes Past Medical History: - - COPD and fibromyalgia Surgical History: hysterectomy, - - Hemorrhoidectomy, 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 Lives: Alone Smoking Status: Former smoker Alcohol: None Drugs: None - Family History Maternal Family History: Family History (Last Reviewed 06/10/20 @ 14:19 by Bridget Hernandez NP, [employer]) Mother Ovarian cancer Brother Heart disease Grandmother Heart disease Grandfather Heart disease Family History: Reports: - - mother with ovarian cancer; denies family history of any blood disorders or blood cancers Paternal Family History: Family History (Last Reviewed 06/10/20 @ 14:19 by Bridget Hernandez [employer], [employer]) Mother Ovarian cancer Brother Heart disease Grandmother Heart disease Grandfather Heart disease Family History: Reports: - Review of Systems General: Reports: Fever. Denies: Chills, Sweats Eyes: Denies: Visual changes - bilaterally, Diplopia ENT: Denies: Rhinorrhea, Sore throat Cardiovascular: Denies: Chest pain, Palpitations Respiratory: Reports: Dyspnea, Cough. Denies: Dyspnea on exertion Gastrointestinal: Reports: Nausea, Vomiting. Denies: Abdominal pain, Diarrhea, Melena, Hematochezia Genitourinary: Denies: Dysuria, Hematuria, Frequency Musculoskeletal: Denies: Back pain, Extremity Pain Skin: Denies: Rash, Wounds Neurological: Denies: Headache, Weakness, Numbness Physical Exam Vital Signs/Narrative: Vital Signs Temp Pulse Resp BP Pulse Ox 07/20/20 18:55 100.6 F H 123 H 24 H 135/84 H 95 General: Well nourished, Well developed, No Acute Distress Head: Normocephalic, Atraumatic Eyes: Perrl, EOMI ENT: Moist mucous membranes, No rhinorrhea Neck: Supple, Nontender Cardiovascular: Regular rate, Regular rhythm, No murmurs Respiratory: No distress, Chest nontender, - - Bilateral decreased air movement with expiratory wheezing. Abdomen: Soft, Nontender, Nondistended, Normal bowel sounds Back: Nontender, Normal Inspection Extremities: Nontender, No edema Skin: Normal color, No rash Neurological: Alert, Oriented x3, Cranial nerves II-XII grossly intact, Normal Strength, Normal Sensation Psychological: Normal affect, Normal Mood Diagnostic/Tx/Re-eval Chest X-Ray - ED: 1 View, Left Infiltrate Clinical Impression(s) from Imaging Studies Chest X-Ray 07/20/20 19:02 IMPRESSION: Persistent left costophrenic angle opacity similar to previous study. Right basilar atelectasis. Mild cardiomegaly. Electronically Signed: Bruce Cerda DO at 20:28 EDT Tel [phone], Service support , Chest CTA 07/20/20 20:34 IMPRESSION: No demonstrated pulmonary embolism or arterial dissection. Bilateral dependent consolidation. Left upper lobe 13.5 mm nodular opacity, may reflect focal scarring and/or atelectasis however cannot exclude a neoplastic process, consider short interval follow-up chest CT in 3 months or PET/CT for further evaluation. Scattered sclerotic foci throughout the thoracic vertebra, cannot exclude underlying neoplastic process. Emphysema. Cardiomegaly. Atherosclerosis. Electronically Signed: Hilda Pritchard MD at 21:21 EDT Tel , Service support , Laboratory Data 07/20/20 07/20/20 07/20/20 19:11 19:25 19:25 WBC 10.0 RBC 3.54 L Hgb 10.9 L Hct 34.9 L MCV 98.6 MCH 30.8 MCHC 31.2 L RDW Std Deviation 51.5 H RDW Coeff of Noe 14.2 Plt Count 188 MPV 9.7 Immature Gran % (Auto) 0.800 Neut % (Auto) 67.2 Lymph % (Auto) 19.1 [place] % (Auto) 11.7 H Eos % (Auto) 0.9 Baso % (Auto) 0.3 Absolute Neuts (auto) 6.7 Absolute Lymphs (auto) 1.91 Nucleated RBC % 0 PT 12.7 INR 1.0 APTT 28.4 Sodium Potassium Chloride Carbon Dioxide Anion Gap BUN Creatinine Estim Creat Clear Calc Est GFR (MDRD) Af Amer Est GFR (MDRD) Non-Af BUN/Creatinine Ratio Glucose Lactic Acid Calcium Magnesium Total Bilirubin AST ALT Alkaline Phosphatase Troponin I Total Protein Albumin Globulin Albumin/Globulin Ratio Urine Color Urine Clarity Urine pH Ur Specific [place] Urine Protein Urine Glucose (UA) Urine Ketones Urine Occult Blood Urine Nitrite Urine Bilirubin Urine Urobilinogen Ur Leukocyte Esterase Urine RBC Urine WBC Ur Squamous Epith Cells Ur Transition Epith Cell Ur Renal Epithelial Cell Urine Bacteria Hyaline Casts Fine Granular Casts Urine Mucus COVID-19 (TAIWO) Not Detected 07/20/20 07/20/20 07/20/20 19:25 19:25 19:25 WBC RBC Hgb Hct MCV MCH MCHC RDW Std Deviation RDW Coeff of Noe Plt Count MPV Immature Gran % (Auto) Neut % (Auto) Lymph % (Auto) [place] % (Auto) Eos % (Auto) Baso % (Auto) Absolute Neuts (auto) Absolute Lymphs (auto) Nucleated RBC % PT INR APTT Sodium 139 Potassium 2.9 L Chloride 102 Carbon Dioxide 32.0 Anion Gap 5 BUN 9 Creatinine 1.15 H Estim Creat Clear Calc 70.12 Est GFR (MDRD) Af Amer 62 Est GFR (MDRD) Non-Af 52 L BUN/Creatinine Ratio 7.8 L Glucose 145 H Lactic Acid 0.8 Calcium 8.1 L Magnesium 1.3 L Total Bilirubin 0.50 AST 15 ALT 15 Alkaline Phosphatase 61 Troponin I < 0.015 Total Protein 5.8 L Albumin 2.8 L Globulin 3.0 Albumin/Globulin Ratio 0.9 Urine Color Urine Clarity Urine pH Ur Specific [place] Urine Protein Urine Glucose (UA) Urine Ketones Urine Occult Blood Urine Nitrite Urine Bilirubin Urine Urobilinogen Ur Leukocyte Esterase Urine RBC Urine WBC Ur Squamous Epith Cells Ur Transition Epith Cell Ur Renal Epithelial Cell Urine Bacteria Hyaline Casts Fine Granular Casts Urine Mucus COVID-19 (TAIWO) 07/20/20 20:40 WBC RBC Hgb Hct MCV MCH MCHC RDW Std Deviation RDW Coeff of Noe Plt Count MPV Immature Gran % (Auto) Neut % (Auto) Lymph % (Auto) [place] % (Auto) Eos % (Auto) Baso % (Auto) Absolute Neuts (auto) Absolute Lymphs (auto) Nucleated RBC % PT INR APTT Sodium Potassium Chloride Carbon Dioxide Anion Gap BUN Creatinine Estim Creat Clear Calc Est GFR (MDRD) Af Amer Est GFR (MDRD) Non-Af BUN/Creatinine Ratio Glucose Lactic Acid Calcium Magnesium Total Bilirubin AST ALT Alkaline Phosphatase Troponin I Total Protein Albumin Globulin Albumin/Globulin Ratio Urine Color Yellow Urine Clarity Cloudy Urine pH 5.0 Ur Specific [place] 1.020 Urine Protein 15 H Urine Glucose (UA) 50 H Urine Ketones 5 H Urine Occult Blood 50 H Urine Nitrite Negative Urine Bilirubin Negative Urine Urobilinogen Normal Ur Leukocyte Esterase 25 H Urine RBC 10-25 SEEN Urine WBC 0-5 SEEN Ur Squamous Epith Cells 0 SEEN Ur Transition Epith Cell 0-5 SEEN Ur Renal Epithelial Cell 0-5 SEEN Urine Bacteria 0 SEEN Hyaline Casts 0-5 SEEN Fine Granular Casts 0-5 SEEN Urine Mucus 4+ COVID-19 (TAIWO) - Rhythm Strip Rhythm Strip: Sinus Tach Rate: 121 Ectopy: PAC(s) - EKG Initial EKG Interpretation: Sinus Tachycardia - Sinus tachycardia at 121 bpm. PACs. Incomplete right bundle branch block. Nonspecific T wave changes. - Medical Decision Making Patient on initial exam is conversationally dyspneic. Mild expiratory wheezing. Patient was given aerosols. Chest x-ray unchanged. Lab work shows a hypokalemia as well as hypomagnesemia. Both will be replaced in the emergency department. Patient was given 1 L fluid bolus upon arrival for her tachycardia and concern for sepsis. Patient also received 1 g of Tylenol. CTA was done to rule out pulmonary embolism. Evidence of a bilateral dependent opacities. Patient also has a left upper lobe mass. Patient will be given Azactam as well as vancomycin. Given her persistent pneumonia as well as febrile illness she will be admitted for antibiotic therapy. Patient requiring 4 to 5 L nasal cannula which is her baseline. Admitted in stable condition. Impression: 1. Sepsis 2. Bilateral pneumonia 3. Hypokalemia 4. Hypomagnesemia 5. History of oxygen-dependent COPD ED Disposition - Plan for ED Patient: Disposition: Acute Care Hospital [facility] Referrals: Jennifer Coelho NP, [employer] [Primary Care Provider] -
[2020-07-20] MEDS: Albuterol 2.5 MG/3 ML VIAL.NEB. INHALATION ×2 (19:15)
[2020-07-20] MEDS: Ipratropium/Albuterol Sulfate 3 ML AMPUL.NEB INHALATION (19:15)
[2020-07-20] MEDS: Acetaminophen 500 MG Tablet 1000 MG PO (19:27)
[2020-07-20] MEDS: 0.9% Normal Saline 1,000 ML 999 ML IV (19:28)
[2020-07-20] MEDS: MethylPREDNISolone 125 MG/2 ML Vial IV (19:28)
[2020-07-20 19:35] LABS: Absolute Lymphocyte Count 1.91 X10^3/uL (0.83-4.51); Absolute Neutrophil Count 6.7 X10^3/uL (2.0-7.7); Basophil# 0.03 X10^3/uL; Basophil% 0.3 % (0-1); Eosinophil# 0.09 X10^3/uL; Eosinophils% 0.9 % (0-5); Hematocrit 34.9 % (37-47); Hemoglobin 10.9 g/dL (12.0-15.0); Lymphocyte # 1.91 X10^3/ul (4.0); Lymphocyte % 19.1 % (19-41); Mean Corp Hgb Conc 31.2 g/dL (32-36); Mean Corpuscular Hgb 30.8 pg (27.0-32.0); Mean Corpuscular Volume 98.6 fL (81-99); Mean Platelet Vol. 9.7 fl (6.2-12.0); Monocyte# 1.17 X10^3/uL; Monocyte% 11.7 % (0-10); NRBC Flagged by Analyzer 0 % (0-5); Neutrophil # 6.73 X10^3/uL (2.7-7.7); Neutrophil % 67.2 % (47-70); Platelet Count 188 K/mm3 (150-450); RBC Distribution Width CV 14.2 % (11.6-14.6); RBC Distribution Width SD 51.5 fl (35.1-43.9); Red Blood Count 3.54 M/mm3 (4.2-5.4)
[2020-07-20 19:42] LABS: Prothrombin Time (Protime)PT. 12.7 SECONDS (11.7-14.9)
[2020-07-20 19:43] LABS: Partial Thromboplast Time 28.4 Seconds (24.1-36.2)
[2020-07-20 20:02] LABS: ALB/GLOB Ratio 0.9 RATIO (0.9-2.4); AST(SGOT) 15 U/L (15-37); Alanine Aminotransfer ALT/SGPT 15 U/L (13-56); Albumin, Serum 2.8 g/dL (3.2-5.0); Alkaline Phosphatase 61 U/L (45-117); Anion Gap 5 (5-15); BUN 9 mg/dL (7-18); BUN/Creat Ratio 7.8 RATIO (10-20); Calcium,Total 8.1 mg/dL (8.5-10.1); Chloride 102 mmol/L (98-107); Creatinine, Serum 1.15 mg/dL (0.55-1.02); EST Glomerular Filtration Rate 52 mL/min (>60); Est Glom Filt Rate - Afr Amer 62 mL/min (>60); Estimated Creatinine Clearance 70.12 ml/min; Glucose 145 mg/dL (74-106); Potassium 2.9 mmol/L (3.5-5.1); Protein, Total 5.8 g/dL (6.4-8.2); Sodium Level 139 mmol/L (136-145)
[2020-07-20 20:05] LABS: Lactic Acid 0.8 mmol/L (0.4-1.9)
--- NOTE | 2020-07-20 20:34 | CT_ITS ---
STUDY: CTA CHEST REASON FOR EXAM: Female, 59 years old. INCREASED SOB, FEVER, ORAL CHEMO FOR CHRONIC MYELOID LEUKEMIA, COPD, ON HOME O2, Emphysema RADIATION DOSAGE (If Supplied By Facility): CTDIvol = ( 14.71 ) mGy, DLP = ( 546.36 ) mGycm TECHNIQUE: The examination was performed with the intravenous administration of IV 100mL Isovue-370. Post-processing of the angiographic images was performed, with multiplanar reformation and 3D reconstruction. Individualized dose optimization techniques were used for this CT. COMPARISON: 10/22/2019 FINDINGS: There is stable dependent consolidation within the right lower lobe. There is less pronounced dependent consolidation within the left lower lobe. Within the left upper lobe there is a 13.5 mm nodular opacity contiguous with dependent consolidation within the lingula. There are bilateral emphysematous changes. Normal enhancement of the main pulmonary artery and right and left pulmonary arteries. Normal enhancement of the bilateral peripheral pulmonary arteries. There is no demonstrated pulmonary embolism. Normal thoracic aorta and visualized great vessels. There is no demonstrated aortic dissection. There are calcifications of the coronary arteries. There is cardiomegaly. Normal mediastinum. Normal hilar regions. Normal visualized trachea and bronchi. Normal chest wall structures. There are degenerative changes of thoracic spine. There are grossly stable sclerotic foci throughout the thoracic spine. There is a deformity within the left ninth rib that is grossly stable may reflect a healing fracture. Normal visualized upper abdomen. CT/CTA Chest W/WO Contrast IMPRESSION: No demonstrated pulmonary embolism or arterial dissection. Bilateral dependent consolidation. Left upper lobe 13.5 mm nodular opacity, may reflect focal scarring and/or atelectasis however cannot exclude a neoplastic process, consider short interval follow-up chest CT in 3 months or PET/CT for further evaluation. Scattered sclerotic foci throughout the thoracic vertebra, cannot exclude underlying neoplastic process. Emphysema. Cardiomegaly. Atherosclerosis. Electronically Signed: Hilda Pritchard MD at 21:21 EDT Tel , Service support ,
[2020-07-20 20:44] LABS: Magnesium 1.3 mg/dL (1.6-2.6)
[2020-07-20 20:50] LABS: Bacteria 0 SEEN /hpf (None Seen); Squamous Epithelial Cells - UA 0 SEEN /hpf (5-10)
[2020-07-20 21:04] LABS: Color, Urine Yellow (Yellow); Glucose, Dipstick 50 mg/dl (Normal); Ketone-Dipstick 5 mg/dl (Negative); Leukocyte Esterase-Dipstick 25 /ul (Negative); Nitrite-Dipstick Negative (Negative); Occult Blood-Urine 50 /ul (Negative); Protein-Dipstick 15 mg/dl (Negative); Urine Bilirubin Dipstick Negative (Negative); Urine Clarity Cloudy (Clear); Urine Urobilinogen Normal (Normal)
[2020-07-20 21:25] LABS: Hyaline Cast 0-5 SEEN /lpf (0-5)
[2020-07-20 21:26] LABS: Fine Granular Cast- Urine 0-5 SEEN /lpf (0-5)
[2020-07-20 21:31] LABS: Renal Epithelial Cells 0-5 SEEN /hpf (0-5)
[2020-07-20 21:33] LABS: Transitional Epithelial - Ur 0-5 SEEN /hpf (0-5)
[2020-07-20 21:34] LABS: Red Blood Cells-Urine 10-25 SEEN /hpf (0-5); White Blood Cells 0-5 SEEN /hpf (0-5)
[2020-07-20 21:36] LABS: Mucous, Urine 4+ /hpf (<or=2+)
--- NOTE | 2020-07-20 22:28 | PCM.HP.STD ---
Problem List (1) Sepsis Status: Acute (2) Pneumonia Status: Acute (3) Left lower lobe pneumonia Status: Acute (4) Tachycardia Status: Chronic (5) Hypokalemia Status: Chronic (6) Fibromyalgia Status: Chronic (7) Nicotine abuse Status: Chronic (8) Stage 3 severe COPD by GOLD classification Status: Chronic (9) Chronic hypoxemic respiratory failure Status: Chronic (10) Ulcerative colitis Status: Chronic (11) Poor compliance with medication Status: Chronic (12) CML (chronic myelocytic leukemia) Status: Chronic (13) Emphysema of lung Status: Chronic History of Present Illness Date of Admission: 07/20/20 Chief Complaint: fever. The patient is a 59 year old F who was discharged earlier this months after being treated for pneumonia as well as COPD exacerbation. Patient completed antibiotics and over the past to 3 days, has not been feeling well. Patient has been having nausea and vomiting, no diarrhea and fevers at home. Just was not feeling well and presented to the emergency room. Patient had a CAT scan that showed bilateral infiltrates and a 13.5 mm nodular opacity in the left upper lobe. Patient received aztreonam and vancomycin in the emergency room. Patient denies any shortness of breath.[] Past Medical History Past Medical History (Chronic Problems): Chronic Problems (Last Reviewed 07/06/20 @ 13:[address] Chi Becerril DO) Tachycardia (Chronic) Hypokalemia (Chronic) Fibromyalgia (Chronic) Nicotine abuse (Chronic) Stage 3 severe COPD by GOLD classification (Chronic) Chronic hypoxemic respiratory failure (Chronic) Ulcerative colitis (Chronic) Poor compliance with medication (Chronic) CML (chronic myelocytic leukemia) (Chronic) Emphysema of lung (Chronic) Medical History: Medical History (Last Reviewed 07/20/20 @ 22:[address] Chi Becerril DO) Tachycardia (Chronic) R00.0 Fibromyalgia (Chronic) M79.7 Nicotine abuse (Chronic) Z72.0 Stage 3 severe COPD by GOLD classification (Chronic) J44.9 Chronic hypoxemic respiratory failure (Chronic) J96.11 Ulcerative colitis (Chronic) K51.90 Poor compliance with medication (Chronic) Z91.14 CML (chronic myelocytic leukemia) (Chronic) C92.10 Carpal tunnel syndrome G56.00 Depression F32.9 DREW (generalized anxiety disorder) F41.1 Obesity (BMI 30.0-34.9) E66.9 Allergies Penicillins Allergy (Severe, Verified 07/20/20 19:09) Hives Sulfa (Sulfonamide Antibiotics) Allergy (Intermediate, Verified 07/20/20 19:09) Hives azithromycin Adverse Reaction (Severe, Verified 07/20/20 19:09) Diarrhea codeine Adverse Reaction (Severe, Verified 07/20/20 19:09) Vomiting ondansetron [From Zofran] Adverse Reaction (Severe, Verified 07/20/20 19:09) Nausea ondansetron HCl [From Zofran (as hydrochloride)] Adverse Reaction (Severe, Verified 07/20/20 19:09) Nausea pregabalin [From Lyrica] Adverse Reaction (Severe, Verified 07/20/20 19:09) i can't see propoxyphene napsylate [From Darvocet-N 100] Adverse Reaction (Severe, Verified 07/20/20 19:09) Vomiting Home Medications: Ambulatory Orders Medication Instructions Recorded Albuterol Aerosols [Ventolin 2.5 mg INHALATION Q4H PRN PRN 10/18/18 Aerosols] Budesonide/Formoterol Fumarate 2 puff IH BID 10/18/18 [Symbicort 160-4.5 Mcg Inhaler] Diltiazem CD [Cardizem CD] 240 mg PO DAILY 10/18/18 Sertraline HCl [Zoloft] 50 mg PO DAILY 10/18/18 albuterol sulfate 90 mcg/actuation 2 puff INHALATION Q4H PRN PRN #18 g 01/14/19 aerosol inhaler potassium chloride 20 mEq 20 meq PO BID 04/14/19 tablet,extended release(part/cryst) omeprazole 40 mg capsule,delayed 40 mg PO DAILY 04/15/19 release sertraline 25 mg tablet 25 mg PO DAILY 04/15/19 alprazolam 0.5 mg tablet 0.5 mg PO Q6H PRN tab 07/15/19 buspirone 10 mg tablet 20 mg PO TID tab 07/15/19 prochlorperazine maleate 10 mg 10 mg PO Q6H PRN 07/15/19 tablet fluticasone propionate 50 2 spray INTRANASAL DAILY #50 mcg 12/30/ mcg/actuation nasal spray,suspension ipratropium 0.5 mg-albuterol 3 mg 3 ml INHALATION Q6H PRN ml 03/31/20 (2.5 mg base)/3 mL nebulization soln Alendronate Sodium [Fosamax] 70 mg PO SA 07/06/20 Azelastine HCl 1 spray NS BID 07/06/20 Imatinib Mesylate [Gleevec] 400 mg PO DAILY 07/06/20 Lactobacillus Acidophilus 1 ea PO DAILY 07/06/20 [Probiotic Acidophilus] Loratadine 10 mg PO DAILY 07/06/20 Oxycodone [Oxyir] 10 mg PO Q6H PRN PRN 07/06/20 Doxycycline 100 mg PO BID #10 cap 07/08/20 Prednisone 1 tab PO DAILY #22 tab 07/08/20 Surgical History: Surgical History (Last Reviewed 07/20/20 @ 22:[address] 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 Chi Becerril DO) Mother Ovarian cancer Brother Heart disease Grandmother Heart disease Grandfather Heart disease History Items: - - mother with ovarian cancer; denies family history of any blood disorders or blood cancers Paternal Family History: Family History (Last Reviewed 07/20/20 @ 22:[address] Chi Becerril DO) Mother Ovarian cancer Brother Heart disease Grandmother Heart disease Grandfather Heart disease History Items: - Review of Systems Constitutional: Denies: Chills, Fever, Weight Change Eyes: Denies: Blurred vision, Double vision HEENT: Denies: Head Aches, Sinus Congestion, Sinus Drainage Cardiovascular: Denies: Chest Pain, Palpitations Respiratory: Denies: Cough, Shortness of Breath Gastrointestinal: Reports: Nausea, Vomiting. Denies: Abdominal Pain, Diarrhea Genitourinary: Denies: Dysuria Musculoskeletal: Denies: Joint Pain, Joint Tenderness Skin: Denies: Rash, Wounds Hematologic/ Lymphatic: Denies: Easy Bruising, Easy Bleeding, Hx of blood clot Comment: All review of systems were negative except as mentioned above in the history of present illness and the other review of systems. VTE Information - Inpt Only VTE Present on Admission: No VTE Mechan Device Prophylaxis: None VTE Pharm Prophylaxis ordered?: Yes - Physical Exam Vitals/I&O's: Vital Signs Temp Pulse Resp BP Pulse Ox 37.3 C 107 H 21 H 122/78 H 92 07/20/20 22:22 07/20/20 22:22 07/20/20 22:22 07/20/20 22:22 07/20/20 22:22 Oxygen Flow Rate (L/min) 5 Oxygen Delivery Method Nasal Cannula Weight: 82.3 kg Body Mass Index (BMI) 36.6 Intake and Output for Last 24 Hours 07/18/20 07/19/20 07/20/20 23:59 23:59 23:59 Intake Total 1000 / 1000 Balance 1000 / 1000 General: Alert, Cooperative, No apparent distress HEENT: Atraumatic, Normocephalic Oral: Moist Mucosa, No Gingival or Mucosal Lesions/ Ulcerations Neck: No Nodes, Thyroid Normal Size and Texture Lungs: Clear to auscultation, Diminished Cardiovascular: Regular rate, Regular Rhythm, Normal S1, Normal S2, No murmurs Abdomen: Bowel Sounds Present, Soft, Non Tender, Non-Distended, Obese Extremities: No edema, No Calf Tenderness Skin: No rashes, No breakdown Musculoskeletal: No Tenderness to Palpation of Joints or Extremities, No Muscle Wasting Neurological: Muscle tone normal, - - no clonsu Psych/Mental Status: Normal Affect, Appropriate Microbiology Past 72 Hours 07/20/20 19:10 Mucosa - Nose Influenza Types A,B Direct FA (BLACK) - Final Laboratory Results 07/20/20 19:11: COVID-19 (TAIWO) Not Detected 07/20/20 19:25: WBC 10.0, RBC 3.54 L, Hgb 10.9 L, Hct 34.9 L, MCV 98.6, MCH 30.8, MCHC 31.2 L, RDW Std Deviation 51.5 H, RDW Coeff of Noe 14.2, Plt Count 188, MPV 9.7, Immature Gran % (Auto) 0.800, Neut % (Auto) 67.2, Lymph % (Auto) 19.1, [place] % (Auto) 11.7 H, Eos % (Auto) 0.9, Baso % (Auto) 0.3, Absolute Neuts (auto) 6.7, Absolute Lymphs (auto) 1.91, Nucleated RBC % 0 07/20/20 19:25: PT 12.7, INR 1.0, APTT 28.4 07/20/20 19:25: Sodium 139, Potassium 2.9 L, Chloride 102, Carbon Dioxide 32.0, Anion Gap 5, BUN 9, Creatinine 1.15 H, Estim Creat Clear Calc 70.12, Est GFR (MDRD) Af Amer 62, Est GFR (MDRD) Non-Af 52 L, BUN/Creatinine Ratio 7.8 L, Glucose 145 H, Calcium 8.1 L, Total Bilirubin 0.50, AST 15, ALT 15, Alkaline Phosphatase 61, Troponin I < 0.015, Total Protein 5.8 L, Albumin 2.8 L, Globulin 3.0, Albumin/Globulin Ratio 0.9 07/20/20 19:25: Lactic Acid 0.8 07/20/20 19:25: Magnesium 1.3 L 07/20/20 20:40: Urine Color Yellow, Urine Clarity Cloudy, Urine pH 5.0, Ur Specific [place] 1.020, Urine Protein 15 H, Urine Glucose (UA) 50 H, Urine Ketones 5 H, Urine Occult Blood 50 H, Urine Nitrite Negative, Urine Bilirubin Negative, Urine Urobilinogen Normal, Ur Leukocyte Esterase 25 H, Urine RBC 10-25 SEEN, Urine WBC 0-5 SEEN, Ur Squamous Epith Cells 0 SEEN, Ur Transition Epith Cell 0-5 SEEN, Ur Renal Epithelial Cell 0-5 SEEN, Urine Bacteria 0 SEEN, Hyaline Casts 0-5 SEEN, Fine Granular Casts 0-5 SEEN, Urine Mucus 4+ Clinical Impression(s) from Imaging Studies Chest X-Ray 07/20/20 19:02 IMPRESSION: Persistent left costophrenic angle opacity similar to previous study. Right basilar atelectasis. Mild cardiomegaly. Electronically Signed: Bruce Cerda DO at 20:28 EDT Tel [phone], Service support , Chest CTA 07/20/20 20:34 IMPRESSION: No demonstrated pulmonary embolism or arterial dissection. Bilateral dependent consolidation. Left upper lobe 13.5 mm nodular opacity, may reflect focal scarring and/or atelectasis however cannot exclude a neoplastic process, consider short interval follow-up chest CT in 3 months or PET/CT for further evaluation. Scattered sclerotic foci throughout the thoracic vertebra, cannot exclude underlying neoplastic process. Emphysema. Cardiomegaly. Atherosclerosis. Electronically Signed: Hilda Pritchard MD at 21:21 EDT Tel , Service support , Current Medications Vancomycin HCl 1,500 mg/ (Sodium Chloride) 530 mls @ 250 mls/hr IV X1 ONE Stop: 07/20/20 23:55 Assessment/Plan All Active Problems (Last Reviewed 07/06/20 @ 13:[address] Chi Becerril, ) Pneumonia (Acute) Left lower lobe pneumonia (Acute) Sepsis (Acute) 1. Sepsis: Present on arrival. Secondary to pneumonia though the patient is not really having much in the way of any kind of new respiratory issues. Patient is on chronic oxygen 4 L at home which is what she is on currently. CAT scan showed infiltrate but this may be residual but given the current situation will elect to treat her with broad-spectrum antibiotics given her recent hospitalization. Patient will be on aztreonam given a penicillin allergy where she develops hives as well as vancomycin. Check a sputum culture as well as urinary antigens for Streptococcus and Legionella. Blood cultures were drawn in the emergency room. De-escalate antibiotics accordingly. Patient was checked for COVID-19 and that was negative. 2. Pneumonia, suspected gram-negative: Antibiotics as above. Pulmonary toilet. 3. Nausea and vomiting: LFTs were unremarkable. And exam was unremarkable as well. Monitor for now. 4. Hypokalemia: Received a 40 mEq in the emergency room. This is complicated by her hypomagnesemia which will need to be replaced as well. Recheck both in the mornings. 5. Lung mass: Not seen on CAT scan back in October. I suspect is probably more from her infiltrate. Follow-up CAT scan in 3 to 6 months. 6. COPD: Not in exacerbation at this time. Did receive methylprednisolone in the emergency room. Patient is on chronic at 10 mg of prednisone at home and will continue. 7. VTE prophylaxis: Moderate risk. Enoxaparin. 8. CML: Continue with imatinib. Follow-up with oncology as outpatient. 9. Advanced care planning: Discussed with the patient. Patient wishes to be DNR Comfort Care arrest no intubation. Inpatient E&M: [id number] Init Hosp L3
[2020-07-20] MEDS: Magnesium Sulfate 4gm/100mL 4 GM/100 ML IV.SOLN. IV (23:35)
[2020-07-20] MEDS: oxyCODONE 5 MG Tablet 10 MG PO (23:38)
[2020-07-20] MEDS: ALPRAZolam 0.5 MG Tablet PO (23:38)
[2020-07-20] MEDS: guaiFENesin 1,200 MG Tablet 1200 MG PO (23:44)
[2020-07-20] MEDS: Azelastine HCl NASAL.SRY 1 SPRAY NASAL (23:44)
[2020-07-20] MEDS: busPIRone 5 MG Tablet 20 MG PO (23:45)
[2020-07-21] VITALS (7 sets, daily range): BP systolic 113–133; BP diastolic 73–84; PULSE 74–107; RESP 18–20; TEMP 36.3–36.7; O2SAT 93–96
--- NOTE | 2020-07-21 00:21 | PCM.RX.CS ---
Consult Pharmacy has been consulted to manage selected antiobiotic: Vancomycin Type of Consult: New start Suspected Infection: Pneumonia Labs: Sodium 139 mmol/L (136-145) 07/20/20 19:25 Potassium 2.9 mmol/L (3.5-5.1) L 07/20/20 19:25 Chloride 102 mmol/L (98-107) 07/20/20 19:25 Carbon Dioxide 32.0 mmol/L (21.0-32.0) 07/20/20 19:25 Anion Gap 5 (5-15) 07/20/20 19:25 BUN 9 mg/dL (7-18) 07/20/20 19:25 Creatinine 1.15 mg/dL (0.55-1.02) H 07/20/20 19:25 Est GFR (MDRD) Af Amer 62 mL/min (>60) 07/20/20 19:25 Est GFR (MDRD) Non-Af 52 mL/min (>60) L 07/20/20 19:25 BUN/Creatinine Ratio 7.8 RATIO (10-20) L 07/20/20 19:25 Glucose 145 mg/dL (74-106) H 07/20/20 19:25 Microbiology: Microbiology 07/20/20 20:40 Urine, Random Legionella Antigen - Final 07/20/20 20:40 Urine, Random Streptococcus pneumoniae Antigen (M - Final 07/20/20 19:10 Mucosa - Nose Influenza Types A,B Direct FA (BLACK) - Final Weight used for dosin.6 kg Estimated Creatinine Clearance: 51 Goal Trough: 15-20 mcg/mL Pharmacy Plan for Drug Dosing: Pharmacy Service will continue to monitor and adjust dosing as required. Medications Vancomycin HCl 750 mg/ Sodium (Chloride) 265 mls @ 250 mls/hr IV Q12H GERA Discontinued Medications Vancomycin HCl 1,500 mg/ (Sodium Chloride) 530 mls @ 250 mls/hr IV X1 ONE Stop: 07/20/20 23:55 Last Admin: 07/20/20 23:59 Dose: 250 mls/hr Documented by: Follow-Up Labs: Trough Vancomycin Labs to be done on [date and time ordered]: 07/22 @ 1134
[2020-07-21 05:23] LABS: Absolute Lymphocyte Count 0.61 X10^3/uL (0.83-4.51); Absolute Neutrophil Count 5.8 X10^3/uL (2.0-7.7); Hematocrit 35.2 % (37-47); Lymphocyte # 0.61 X10^3/ul (4.0); Lymphocyte % 9.4 % (19-41); Mean Corp Hgb Conc 31.3 g/dL (32-36); Mean Corpuscular Hgb 30.7 pg (27.0-32.0); Mean Corpuscular Volume 98.3 fL (81-99); Mean Platelet Vol. 9.8 fl (6.2-12.0); Monocyte% 1.5 % (0-10); NRBC Flagged by Analyzer 0 % (0-5); Neutrophil # 5.75 X10^3/uL (2.7-7.7); Neutrophil % 88.3 % (47-70); Platelet Count 168 K/mm3 (150-450); RBC Distribution Width SD 51.3 fl (35.1-43.9); Red Blood Count 3.58 M/mm3 (4.2-5.4); White Blood Count 6.5 K/mm3 (4.4-11.0)
[2020-07-21 05:39] LABS: Anion Gap 7 (5-15); BUN 10 mg/dL (7-18); BUN/Creat Ratio 8.8 RATIO (10-20); Calcium,Total 7.9 mg/dL (8.5-10.1); Chloride 102 mmol/L (98-107); Creatinine, Serum 1.13 mg/dL (0.55-1.02); EST Glomerular Filtration Rate 53 mL/min (>60); Est Glom Filt Rate - Afr Amer 64 mL/min (>60); Estimated Creatinine Clearance 70.76 ml/min; Glucose 260 mg/dL (74-106); Magnesium 3.2 mg/dL (1.6-2.6); Potassium 3.5 mmol/L (3.5-5.1); Sodium Level 137 mmol/L (136-145)
[2020-07-21] MEDS: busPIRone 5 MG Tablet 20 MG PO ×3 (05:45→21:24)
[2020-07-21] MEDS: Enoxaparin 40 MG/0.4 ML Syringe SC (05:45)
[2020-07-21] MEDS: Albuterol 2.5 MG/3 ML VIAL.NEB. INHALATION ×3 (06:37→18:46)
[2020-07-21] MEDS: predniSONE 10 MG Tablet PO (07:57)
--- NOTE | 2020-07-21 10:02 | CON.PCM_ITS ---
Problem List (1) Sepsis Status: Acute (2) Fibromyalgia Status: Chronic (3) Nicotine abuse Status: Chronic (4) Stage 3 severe COPD by GOLD classification Status: Chronic (5) Chronic hypoxemic respiratory failure Status: Chronic (6) Ulcerative colitis Status: Chronic (7) Poor compliance with medication Status: Chronic (8) CML (chronic myelocytic leukemia) Status: Chronic Reason for Consult Date of Consultation: 07/21/20 Reason for Consultation: Questionable pneumonia History of Present Illness: The patient is a 59 year old F, with past medical history listed below and well- known to me from the outpatient office, who presented to [facility] on 07/20/2020 secondary to progressive shortness of breath and fever. Patient was recently admitted at [facility] for 3 days secondary to pneumonia. Patient was discharged 12 days ago, but finished her antibiotics 2 days ago. Pulmonary was not consulted on the last hospitalization, so no outpatient follow-up was completed in the clinic. Patient states that she developed some worsening shortness of breath, but it was the fever that made her come back in. Patient has had some nausea and vomiting, but denied any diarrhea or abdominal pain. No urinary symptoms have been noted. Patient states that she did notice decreased oxygen saturations on her baseline 4 L nasal cannula. In the ER, patient was noted to be in sinus tachycardia at 121 bpm with an incomplete right bundle branch and no ST changes. Chest x-ray was grossly unchanged and CTA of the chest was obtained to rule out PE. This showed dependent bilateral opacities with emphysematous changes and a left upper lobe mass. Patient was placed on Azactam and vancomycin secondary to allergy profile. Patient was on her baseline nasal cannula oxygen to maintain saturations. Urinalysis was relatively unremarkable. Patient did have some hypokalemia, but renal function was normal. Patient tested negative for COVID- 19 and WBC count was noted at 10. Since admission to the hospital, patient feels somewhat improved. Patient states that she was worried with the fever that she may have COVID-19. Patient states that she has noted worsening shortness of breath over the last 2 to 3 weeks, but thought she got better after antibiotics initially. Patient is unclear in any exposures. Patient has not been seen by [facility] for possible endobronchial lung volume reduction. Review of systems otherwise negative from a constitutional, HEENT, respiratory, cardiovascular, GI, genitourinary, musculoskeletal, skin, neurologic, psychiatric and hematologic system unless stated above. Past Medical History Past Medical History (Chronic Problems): Chronic Problems (Last Reviewed 07/20/20 @ 22:[address] Chi Becerril DO) Tachycardia (Chronic) Hypokalemia (Chronic) Fibromyalgia (Chronic) Nicotine abuse (Chronic) Stage 3 severe COPD by GOLD classification (Chronic) Chronic hypoxemic respiratory failure (Chronic) Ulcerative colitis (Chronic) Poor compliance with medication (Chronic) CML (chronic myelocytic leukemia) (Chronic) Emphysema of lung (Chronic) Medical History: Medical History (Last Reviewed 07/20/20 @ 22:[address] Chi Becerril, DO) Tachycardia (Chronic) R00.0 Fibromyalgia (Chronic) M79.7 Nicotine abuse (Chronic) Z72.0 Stage 3 severe COPD by GOLD classification (Chronic) J44.9 Chronic hypoxemic respiratory failure (Chronic) J96.11 Ulcerative colitis (Chronic) K51.90 Poor compliance with medication (Chronic) Z91.14 CML (chronic myelocytic leukemia) (Chronic) C92.10 Carpal tunnel syndrome G56.00 Depression F32.9 DREW (generalized anxiety disorder) F41.1 Obesity (BMI 30.0-34.9) E66.9 Allergies Penicillins Allergy (Severe, Verified 07/20/20 19:09) Hives Sulfa (Sulfonamide Antibiotics) Allergy (Intermediate, Verified 07/20/20 19:09) Hives azithromycin Adverse Reaction (Severe, Verified 07/20/20 19:09) Diarrhea codeine Adverse Reaction (Severe, Verified 07/20/20 19:09) Vomiting ondansetron [From Zofran] Adverse Reaction (Severe, Verified 07/20/20 19:09) Nausea ondansetron HCl [From Zofran (as hydrochloride)] Adverse Reaction (Severe, Verified 07/20/20 19:09) Nausea pregabalin [From Lyrica] Adverse Reaction (Severe, Verified 07/20/20 19:09) i can't see propoxyphene napsylate [From Darvocet-N 100] Adverse Reaction (Severe, Verified 07/20/20 19:09) Vomiting Home Medications: Ambulatory Orders Medication Instructions Recorded Albuterol Aerosols [Ventolin 2.5 mg INHALATION Q4H PRN PRN 10/18/18 Aerosols] Budesonide/Formoterol Fumarate 2 puff IH BID 10/18/18 [Symbicort 160-4.5 Mcg Inhaler] Diltiazem CD [Cardizem CD] 240 mg PO DAILY 10/18/18 Sertraline HCl [Zoloft] 50 mg PO DAILY 10/18/18 albuterol sulfate 90 mcg/actuation 2 puff INHALATION Q4H PRN PRN #18 g 01/14/19 aerosol inhaler potassium chloride 20 mEq 20 meq PO BID 04/14/19 tablet,extended release(part/cryst) omeprazole 40 mg capsule,delayed 40 mg PO DAILY 04/15/19 release sertraline 25 mg tablet 25 mg PO DAILY 04/15/19 alprazolam 0.5 mg tablet 0.5 mg PO Q6H PRN tab 07/15/19 buspirone 10 mg tablet 20 mg PO TID tab 07/15/19 prochlorperazine maleate 10 mg 10 mg PO Q6H PRN 07/15/19 tablet fluticasone propionate 50 2 spray INTRANASAL DAILY #50 mcg 12/31/19 mcg/actuation nasal spray,suspension ipratropium 0.5 mg-albuterol 3 mg 3 ml INHALATION Q6H PRN ml 03/31/20 (2.5 mg base)/3 mL nebulization soln Alendronate Sodium [Fosamax] 70 mg PO SA 07/06/20 Azelastine HCl 1 spray NS BID 07/06/20 Imatinib Mesylate [Gleevec] 400 mg PO DAILY 07/06/20 Lactobacillus Acidophilus 1 ea PO DAILY 07/06/20 [Probiotic Acidophilus] Loratadine 10 mg PO DAILY 07/06/20 Oxycodone [Oxyir] 10 mg PO Q6H PRN PRN 07/06/20 Doxycycline 100 mg PO BID #10 cap 07/08/20 Prednisone 1 tab PO DAILY #22 tab 07/08/20 Surgical History: Surgical History (Last Reviewed 07/20/20 @ 22:[address] 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 Chi Becerril DO) Mother Ovarian cancer Brother Heart disease Grandmother Heart disease Grandfather Heart disease History Items: - - mother with ovarian cancer; denies family history of any blood disorders or blood cancers Paternal Family History: Family History (Last Reviewed 07/20/20 @ 22:[address] Chi Becerril DO) Mother Ovarian cancer Brother Heart disease Grandmother Heart disease Grandfather Heart disease History Items: - Review of Systems Comment: See HPI Patient Problems: Active and Suspected Problems (Last Reviewed 07/20/20 @ 22:[address] Chi Becerril DO) Pneumonia (Acute) Left lower lobe pneumonia (Acute) Sepsis (Acute) Objective: All imaging was personally reviewed. Patient does have some dependent atelectasis noted. Severe emphysematous changes are baseline. No PE was appreciated. PFT (07/26/2017): Irreversible severe large airways obstructive ventilatory defect resulting in air trapping with hyperinflation (FVC 74%, FEV1 44%, TLC 109%, RV 167%, DLCO 23%) Echocardiogram (March 2019): EF reportedly normal with normal right ventricular systolic function. - Physical Exam Vitals/I&O's: Vital Signs Temp Pulse Resp BP Pulse Ox 36.5 C L 98 20 H 128/78 H 94 07/21/20 06:30 07/21/20 06:37 07/21/20 06:37 07/21/20 06:30 07/21/20 06:37 Oxygen Flow Rate (L/min) 4 Oxygen Delivery Method Nasal Cannula Weight: 81.6 kg Body Mass Index (BMI) 36.3 Intake and Output for Last 24 Hours 07/19/20 07/20/20 07/21/20 23:59 23:59 23:59 Intake Total 1100 / 1100 1320 / 1320 Balance 1100 / 1100 1320 / 1320 General: Alert, Oriented x3, Cooperative, - - Mild to moderate conversational dyspnea. Obese. HEENT: Atraumatic, PERRLA, EOMI, Normocephalic, - - Exotropia (baseline) Oral: Moist Mucosa, No Gingival or Mucosal Lesions/ Ulcerations, - - Crowded posterior pharynx Neck: Supple, No Nodes, Trachea Midline, JVD, Right Lungs: No rhonchi, No wheeze, No rales, Diminished, - - Symmetric expansion. No dullness to percussion. Cardiovascular: Regular rate, Regular Rhythm, Normal S1, Normal S2, No murmurs, No rub noted, No Gallop Abdomen: Bowel Sounds Present, Soft, Non Tender, Non-Distended, Obese Extremities: No clubbing, No cyanosis, Edema Skin: No rashes, No breakdown Musculoskeletal: No Tenderness to Palpation of Joints or Extremities Lymphatic: No Cervical, Supraclavicular, or Inguinal Adenopathy Neurological: Cranial nerves II-XII grossly intact, Neuro grossly intact, Motor Exam 5/5 strength throughout Psych/Mental Status: Alert and oriented to time, place, person, mood and affect Microbiology Past 72 Hours 07/20/20 20:40 Urine, Random Legionella Antigen - Final 07/20/20 20:40 Urine, Random Streptococcus pneumoniae Antigen (M - Final 07/20/20 19:10 Mucosa - Nose Influenza Types A,B Direct FA (BLACK) - Final Laboratory Results 07/20/20 19:11: COVID-19 (TAIWO) Not Detected 07/20/20 19:25: WBC 10.0, RBC 3.54 L, Hgb 10.9 L, Hct 34.9 L, MCV 98.6, MCH 30.8, MCHC 31.2 L, RDW Std Deviation 51.5 H, RDW Coeff of Noe 14.2, Plt Count 188, MPV 9.7, Immature Gran % (Auto) 0.800, Neut % (Auto) 67.2, Lymph % (Auto) 19.1, Giles % (Auto) 11.7 H, Eos % (Auto) 0.9, Baso % (Auto) 0.3, Absolute Neuts (auto) 6.7, Absolute Lymphs (auto) 1.91, Nucleated RBC % 0 07/20/20 19:25: PT 12.7, INR 1.0, APTT 28.4 07/20/20 19:25: Sodium 139, Potassium 2.9 L, Chloride 102, Carbon Dioxide 32.0, Anion Gap 5, BUN 9, Creatinine 1.15 H, Estim Creat Clear Calc 70.12, Est GFR (MDRD) Af Amer 62, Est GFR (MDRD) Non-Af 52 L, BUN/Creatinine Ratio 7.8 L, Glucose 145 H, Calcium 8.1 L, Total Bilirubin 0.50, AST 15, ALT 15, Alkaline Phosphatase 61, Troponin I < 0.015, Total Protein 5.8 L, Albumin 2.8 L, Globulin 3.0, Albumin/Globulin Ratio 0.9 07/20/20 19:25: Lactic Acid 0.8 07/20/20 19:25: Magnesium 1.3 L 07/20/20 20:40: Urine Color Yellow, Urine Clarity Cloudy, Urine pH 5.0, Ur Specific Velma 1.020, Urine Protein 15 H, Urine Glucose (UA) 50 H, Urine Ketones 5 H, Urine Occult Blood 50 H, Urine Nitrite Negative, Urine Bilirubin Negative, Urine Urobilinogen Normal, Ur Leukocyte Esterase 25 H, Urine RBC 10-25 SEEN, Urine WBC 0-5 SEEN, Ur Squamous Epith Cells 0 SEEN, Ur Transition Epith Cell 0-5 SEEN, Ur Renal Epithelial Cell 0-5 SEEN, Urine Bacteria 0 SEEN, Hyaline Casts 0-5 SEEN, Fine Granular Casts 0-5 SEEN, Urine Mucus 4+ 07/21/20 04:56: WBC 6.5, RBC 3.58 L, Hgb 11.0 L, Hct 35.2 L, MCV 98.3, MCH 30.7, MCHC 31.3 L, RDW Std Deviation 51.3 H, RDW Coeff of Noe 14.0, Plt Count 168, MPV 9.8, Immature Gran % (Auto) 0.800, Neut % (Auto) 88.3 H, Lymph % (Auto) 9.4 L, Giles % (Auto) 1.5, Eos % (Auto) 0.0, Baso % (Auto) 0.0, Absolute Neuts (auto) 5.8, Absolute Lymphs (auto) 0.61 L, Nucleated RBC % 0 07/21/20 04:56: Sodium 137, Potassium 3.5, Chloride 102, Carbon Dioxide 28.0, Anion Gap 7, BUN 10, Creatinine 1.13 H, Estim Creat Clear Calc 70.76, Est GFR (MDRD) Af Amer 64, Est GFR (MDRD) Non-Af 53 L, BUN/Creatinine Ratio 8.8 L, Glucose 260 H, Calcium 7.9 L, Magnesium 3.2 H Current Medications Acetaminophen (Acetaminophen 325 Mg Tablet) 650 mg PO Q6H PRN PRN PRN Reason: Pain Score 1-10/Temp > 100.7 F Albuterol Sulfate (Albuterol 2.5 Mg/3 Ml Vial.Neb.) 2.5 mg INHALATION Q4H PRN PRN PRN Reason: SOB &/OR WHEEZING Albuterol Sulfate (Albuterol 2.5 Mg/3 Ml Vial.Neb.) 2.5 mg INHALATION Q6HWA.RT [facility] Last Admin: 07/21/20 06:37 Dose: 2.5 mg Documented by: Albuterol/Ipratropium (Ipratropium/Albuterol Sulfate 3 Ml Ampul.Neb) 3 ml I NHALATION Q6H PRN PRN Reason: wheezing Alendronate Sodium (Alendronate Sodium 70 Mg Tablet) 70 mg PO Sa@0600 [facility] Alprazolam (Alprazolam 0.5 Mg Tablet) 0.5 mg PO Q6H PRN PRN Reason: ANXIETY Last Admin: 07/20/20 23:38 Dose: 0.5 mg Documented by: Azelastine HCl (Azelastine Hcl Nasal.Sry) 1 spray NASAL BID [facility] Last Admin: 07/20/20 23:44 Dose: 1 spray Documented by: Buspirone HCl (Buspirone 5 Mg Tablet) 20 mg PO TID [facility] Last Admin: 07/21/20 05:45 Dose: 20 mg Documented by: Diltiazem HCl (Diltiazem Cd 240 Mg Capsule) 240 mg PO DAILY [facility] Enoxaparin Sodium (Enoxaparin 40 Mg/0.4 Ml Syringe) 40 mg SC DAILY@0600 [facility] Last Admin: 07/21/20 05:45 Dose: 40 mg Documented by: Fluticasone Propionate (Fluticasone 0.05% 1 [place] Nasal.Sry) 2 spray NASAL DAILY [facility] Guaifenesin (Guaifenesin 1,200 Mg Tablet) 1,200 mg PO BID [facility] Last Admin: 07/20/20 23:44 Dose: 1,200 mg Documented by: Vancomycin IV Pharmacy to Dose (1 ea/ Sodium Chloride) 500 mls @ 250 mls/hr IV X1 PRN; Protocol PRN Reason: Rx to Dose Aztreonam 2 gm/ Sodium (Chloride) 100 mls @ 150 mls/hr IV Q8 [facility] Stop: 07/28/20 06:01 Last Infusion: 07/21/20 06:42 Dose: Infused Documented by: Sodium Chloride () 250 mls @ 15 mls/hr IV .[id number] PRN PRN Reason: Saline Flush Sodium Chloride () 250 mls @ 15 mls/hr IV .[id number] PRN PRN Reason: Additional IVPB Infusion Vancomycin HCl 750 mg/ Sodium (Chloride) 265 mls @ 250 mls/hr IV Q12H [facility] Imatinib Mesylate (Imatinib Mesylate 400 Mg Tablet) 400 mg PO DAILY [facility] Lactobacillus Acidophilus (Lactobacillus Acidophilus) 1 tablet PO DAILY [facility] Loratadine (Loratadine 10 Mg Tablet) 10 mg PO DAILY [facility] Nutritional Formula (Lactose Free) (Ensure Enlive 120 Ml Liquid) 120 ml PO 4X/DAY [facility] Ondansetron HCl (Ondansetron 4 Mg/2 Ml Vial) 4 mg IV Q8H PRN PRN PRN Reason: NAUSEA/VOMITING Oxycodone HCl (Oxycodone 5 Mg Tablet) 10 mg PO Q6H PRN PRN PRN Reason: Pain Score 1-10 Last Admin: 07/20/20 23:38 Dose: 10 mg Documented by: Pantoprazole Sodium (Pantoprazole Sodium 40 Mg Tablet) 40 mg PO DAILY [facility] Potassium Chloride (Potassium Chloride 20 Meq Tablet) 20 meq PO BID [facility] Prednisone (Pred[facility] 10 Mg Tablet) [facility] Last Admin: 07/21/20 07:57 Dose: 10 mg Documented by: Prochlorperazine Maleate (Prochlorperazine 5 Mg Tablet) 10 mg PO Q6H PRN PRN PRN Reason: NAUSEA Sertraline HCl (Sertraline 50 Mg Tablet) 25 mg PO DAILY [facility] Sertraline HCl (Sertraline 50 Mg Tablet) 50 mg PO DAILY [facility] Sodium Chloride (0.9% Saline Lock 10 Ml Syringe) 10 - 40 ml IV UD PRN PRN Reason: SALINE FLUSH Clinical Impression(s) from Imaging Studies Chest X-Ray 07/20/20 19:02 IMPRESSION: Persistent left costophrenic angle opacity similar to previous study. Right basilar atelectasis. Mild cardiomegaly. Electronically Signed: Bruce Cerda DO at 20:28 EDT Tel [phone], Service support , Chest CTA 07/20/20 20:34 IMPRESSION: No demonstrated pulmonary embolism or arterial dissection. Bilateral dependent consolidation. Left upper lobe 13.5 mm nodular opacity, may reflect focal scarring and/or atelectasis however cannot exclude a neoplastic process, consider short interval follow-up chest CT in 3 months or PET/CT for further evaluation. Scattered sclerotic foci throughout the thoracic vertebra, cannot exclude underlying neoplastic process. Emphysema. Cardiomegaly. Atherosclerosis. Electronically Signed: Hilda Pritchard MD at 21:21 EDT Tel , Service support , Assessment/Plan All Active Problems (Last Reviewed 07/20/20 @ 22:[address] Chi Becerril, ) Pneumonia (Acute) Left lower lobe pneumonia (Acute) Sepsis (Acute) RECOMMENDATIONS: 1. Receive extra diuretic today 2. Check viral panel 3. Possible discontinuation of antibiotics if afebrile at 48 hours 4. Transition to full dose prednisone therapy 5. Walking oximetry prior to discharge IMPRESSIONS: 1. Acute exacerbation of COPD secondary to possible viral syndrome Patient with recent hospitalization and extensive antibiotics. Patient reportedly had a fever at home. CT appears to be at its baseline at this time. Patient does have CML at baseline with extensive emphysematous changes. Would repeat viral panel. Increase prednisone to normal dosing for an exacerbation in the interim. If patient has no fevers after 48-hour, recommend discontinuation of antibiotics altogether. Patient does have a history of type II/III pulmonary hypertension. Will attempt diuretic therapy. 2. CML Patient does not have significant leukocytosis. Patient is on appropriate chemotherapy. Unfortunately, this does make patient ineligible for evaluation for lung transplantation. However, I doubt this is adding to patient's current situation. 3. Ulcerative colitis/Anxiety/depression/previous C. difficile Complicates care, management, recovery and prognosis. Patient is pending a referral to [facility] for possible endobronchial lung volume reduction. Patient would not tolerate surgical intervention with previous pulmonary function test. Inpatient E&M: 05434 Init Hosp L3
[2020-07-21] MEDS: Azelastine HCl NASAL.SRY 1 SPRAY NASAL ×2 (10:45→21:23)
[2020-07-21] MEDS: Fluticasone 0.05% 1 SPRAY NASAL.SRY 2 SPRAY NASAL (10:46)
[2020-07-21] MEDS: Loratadine 10 MG Tablet PO (10:46)
[2020-07-21] MEDS: dilTIAZem CD 240 MG Capsule PO (10:46)
[2020-07-21] MEDS: Sertraline 50 MG Tablet 25 MG PO (10:48)
[2020-07-21] MEDS: guaiFENesin 1,200 MG Tablet 1200 MG PO ×2 (10:48→21:23)
[2020-07-21] MEDS: Pantoprazole Sodium 40 MG Tablet PO (10:48)
[2020-07-21] MEDS: Sertraline 50 MG Tablet PO (10:49)
[2020-07-21] MEDS: Furosemide 40 MG/4 ML Vial IV (10:53)
[2020-07-21] MEDS: predniSONE 10 MG Tablet 30 MG PO (10:54)
--- NOTE | 2020-07-21 12:20 | PCM.PROGNOTE ---
Patient Problems: Active and Suspected Problems (Last Reviewed 07/20/20 @ 22:[address] Chi Becerril, DO) Pneumonia (Acute) Left lower lobe pneumonia (Acute) Sepsis (Acute) Subjective: Patient seen and examined. Reports improvement in breathing and cough. Denies fever. On baseline home O2, 4 L nasal cannula. - Physical Exam Vitals/I&O's: Vital Signs Temp Pulse Resp BP Pulse Ox 97.7 F L 98 20 H 128/78 H 94 07/21/20 06:30 07/21/20 06:37 07/21/20 06:37 07/21/20 06:30 07/21/20 06:37 Oxygen Flow Rate (L/min) 4 Oxygen Delivery Method Nasal Cannula Weight: 179 lb 14.355 oz Body Mass Index (BMI) 36.3 Intake and Output for Last 24 Hours 07/19/20 07/20/20 07/21/20 23:59 23:59 23:59 Intake Total 1100 / 1100 1320 / 1320 Balance 1100 / 1100 1320 / 1320 General: Alert, Oriented x3, Cooperative HEENT: Atraumatic, PERRLA, EOMI, Normocephalic Neck: Supple, No JVD, Negative Carotid Bruits Lungs: Clear to auscultation, Diminished Cardiovascular: Regular rate, No murmurs Abdomen: Bowel Sounds Present, Soft, Non Tender, Non-Distended Extremities: No clubbing, No cyanosis, No edema, Capillary Refill Less than 3 Seconds Skin: No rashes, No breakdown Musculoskeletal: No Tenderness to Palpation of Joints or Extremities Neurological: Cranial nerves II-XII grossly intact, Neuro grossly intact Psych/Mental Status: Normal Affect, Appropriate Microbiology Past 72 Hours 07/21/20 07:35 Mucosa - Nasopharyngeal Respiratory Panel (PCR) - Final 07/20/20 20:40 Urine, Random Legionella Antigen - Final 07/20/20 20:40 Urine, Random Streptococcus pneumoniae Antigen (M - Final 07/20/20 19:10 Mucosa - Nose Influenza Types A,B Direct FA (BLACK) - Final Laboratory Results 07/20/20 19:11: COVID-19 ([facility]) Not Detected 07/20/20 19:25: WBC 10.0, RBC 3.54 L, Hgb 10.9 L, Hct 34.9 L, MCV 98.6, MCH 30.8, MCHC 31.2 L, RDW Std Deviation 51.5 H, RDW Coeff of Noe 14.2, Plt Count 188, MPV 9.7, Immature Gran % (Auto) 0.800, Neut % (Auto) 67.2, Lymph % (Auto) 19.1, [place] % (Auto) 11.7 H, Eos % (Auto) 0.9, Baso % (Auto) 0.3, Absolute Neuts (auto) 6.7, Absolute Lymphs (auto) 1.91, Nucleated RBC % 0 07/20/20 19:25: PT 12.7, INR 1.0, APTT 28.4 07/20/20 19:25: Sodium 139, Potassium 2.9 L, Chloride 102, Carbon Dioxide 32.0, Anion Gap 5, BUN 9, Creatinine 1.15 H, Estim Creat Clear Calc 70.12, Est GFR (MDRD) Af Amer 62, Est GFR (MDRD) Non-Af 52 L, BUN/Creatinine Ratio 7.8 L, Glucose 145 H, Calcium 8.1 L, Total Bilirubin 0.50, AST 15, ALT 15, Alkaline Phosphatase 61, Troponin I < 0.015, Total Protein 5.8 L, Albumin 2.8 L, Globulin 3.0, Albumin/Globulin Ratio 0.9 07/20/20 19:25: Lactic Acid 0.8 07/20/20 19:25: Magnesium 1.3 L 07/20/20 20:40: Urine Color Yellow, Urine Clarity Cloudy, Urine pH 5.0, Ur Specific [place] 1.020, Urine Protein 15 H, Urine Glucose (UA) 50 H, Urine Ketones 5 H, Urine Occult Blood 50 H, Urine Nitrite Negative, Urine Bilirubin Negative, Urine Urobilinogen Normal, Ur Leukocyte Esterase 25 H, Urine RBC 10-25 SEEN, Urine WBC 0-5 SEEN, Ur Squamous Epith Cells 0 SEEN, Ur Transition Epith Cell 0-5 SEEN, Ur Renal Epithelial Cell 0-5 SEEN, Urine Bacteria 0 SEEN, Hyaline Casts 0-5 SEEN, Fine Granular Casts 0-5 SEEN, Urine Mucus 4+ 07/21/20 04:56: WBC 6.5, RBC 3.58 L, Hgb 11.0 L, Hct 35.2 L, MCV 98.3, MCH 30.7, MCHC 31.3 L, RDW Std Deviation 51.3 H, RDW Coeff of Noe 14.0, Plt Count 168, MPV 9.8, Immature Gran % (Auto) 0.800, Neut % (Auto) 88.3 H, Lymph % (Auto) 9.4 L, [place] % (Auto) 1.5, Eos % (Auto) 0.0, Baso % (Auto) 0.0, Absolute Neuts (auto) 5.8, Absolute Lymphs (auto) 0.61 L, Nucleated RBC % 0 07/21/20 04:56: Sodium 137, Potassium 3.5, Chloride 102, Carbon Dioxide 28.0, Anion Gap 7, BUN 10, Creatinine 1.13 H, Estim Creat Clear Calc 70.76, Est GFR (MDRD) Af Amer 64, Est GFR (MDRD) Non-Af 53 L, BUN/Creatinine Ratio 8.8 L, Glucose 260 H, Calcium 7.9 L, Magnesium 3.2 H Current Medications Acetaminophen (Acetaminophen 325 Mg Tablet) 650 mg PO Q6H PRN PRN PRN Reason: Pain Score 1-10/Temp > 100.7 F Albuterol Sulfate (Albuterol 2.5 Mg/3 Ml Vial.Neb.) 2.5 mg INHALATION Q4H PRN PRN PRN Reason: SOB &/OR WHEEZING Albuterol Sulfate (Albuterol 2.5 Mg/3 Ml Vial.Neb.) 2.5 mg INHALATION Q6HWA.RT [facility] Last Admin: 07/21/20 06:37 Dose: 2.5 mg Documented by: Albuterol/Ipratropium (Ipratropium/Albuterol Sulfate 3 Ml Ampul.Neb) 3 ml INHALATION Q6H PRN PRN Reason: wheezing Alendronate Sodium (Alendronate Sodium 70 Mg Tablet) 70 mg PO Sa@0600 [facility] Alprazolam (Alprazolam 0.5 Mg Tablet) 0.5 mg PO Q6H PRN PRN Reason: ANXIETY Last Admin: 07/20/20 23:38 Dose: 0.5 mg Documented by: Azelastine HCl (Azelastine Hcl Nasal.Sry) 1 spray NASAL BID [facility] Last Admin: 07/21/20 10:45 Dose: 1 spray Documented by: Buspirone HCl (Buspirone 5 Mg Tablet) 20 mg PO TID [facility] Last Admin: 07/21/20 05:45 Dose: 20 mg Documented by: Diltiazem HCl (Diltiazem Cd 240 Mg Capsule) 240 mg PO DAILY [facility] Last Admin: 07/21/20 10:46 Dose: 240 mg Documented by: Enoxaparin Sodium (Enoxaparin 40 Mg/0.4 Ml Syringe) 40 mg SC DAILY@0600 [facility] Last Admin: 07/21/20 05:45 Dose: 40 mg Documented by: Fluticasone Propionate (Fluticasone 0.05% 1 [place] Nasal.Sry) 2 spray NASAL DAILY [facility] Last Admin: 07/21/20 10:46 Dose: 2 spray Documented by: Guaifenesin (Guaifenesin 1,200 Mg Tablet) 1,200 mg PO BID [facility] Last Admin: 07/21/20 10:48 Dose: 1,200 mg Documented by: Vancomycin IV Pharmacy to Dose (1 ea/ Sodium Chloride) 500 mls @ 250 mls/hr IV X1 PRN; Protocol PRN Reason: Rx to Dose Aztreonam 2 gm/ Sodium (Chloride) 100 mls @ 150 mls/hr IV Q8 [facility] Stop: 07/28/20 06:01 Last Infusion: 07/21/20 06:42 Dose: Infused Documented by: Sodium Chloride () 250 mls @ 15 mls/hr IV .[id number] PRN PRN Reason: Saline Flush Sodium Chloride () 250 mls @ 15 mls/hr IV .[id number] PRN PRN Reason: Additional IVPB Infusion Vancomycin HCl 750 mg/ Sodium (Chloride) 265 mls @ 250 mls/hr IV Q12H [facility] Last Admin: 07/21/20 11:45 Dose: 250 mls/hr Documented by: Imatinib Mesylate (Imatinib Mesylate 400 Mg Tablet) 400 mg PO DAILY [facility] Lactobacillus Acidophilus (Lactobacillus Acidophilus) 1 tablet PO DAILY [facility] Last Admin: 07/21/20 10:45 Dose: 1 tablet Documented by: Loratadine (Loratadine 10 Mg Tablet) 10 mg PO DAILY [facility] Last Admin: 07/21/20 10:46 Dose: 10 mg Documented by: Nutritional Formula (Lactose Free) (Ensure Enlive 120 Ml Liquid) 120 ml PO 4X/DAY [facility] Last Admin: 07/21/20 11:06 Dose: Not Given Documented by: Ondansetron HCl (Ondansetron 4 Mg/2 Ml Vial) 4 mg IV Q8H PRN PRN PRN Reason: NAUSEA/VOMITING Oxycodone HCl (Oxycodone 5 Mg Tablet) 10 mg PO Q6H PRN PRN PRN Reason: Pain Score 1-10 Last Admin: 07/20/20 23:38 Dose: 10 mg Documented by: Pantoprazole Sodium (Pantoprazole Sodium 40 Mg Tablet) 40 mg PO DAILY [facility] Last Admin: 07/21/20 10:48 Dose: 40 mg Documented by: Potassium Chloride (Potassium Chloride 20 Meq Tablet) 20 meq PO BID [facility] Last Admin: 07/21/20 10:47 Dose: 20 meq Documented by: Prednisone (Pred[facility]one 20 Mg Tablet) [facility] Prochlorperazine Maleate (Prochlorperazine 5 Mg Tablet) 10 mg PO Q6H PRN PRN PRN Reason: NAUSEA Sertraline HCl (Sertraline 50 Mg Tablet) 25 mg PO DAILY [facility] Last Admin: 07/21/20 10:48 Dose: 25 mg Documented by: Sertraline HCl (Sertraline 50 Mg Tablet) 50 mg PO DAILY [facility] Last Admin: 07/21/20 10:49 Dose: 50 mg Documented by: Sodium Chloride (0.9% Saline Lock 10 Ml Syringe) 10 - 40 ml IV UD PRN PRN Reason: SALINE FLUSH Medical Necessity - Tobacco Use Smoking Status: Former smoker Assessment/Plan All Active Problems (Last Reviewed 07/20/20 @ 22:[address] Chi Becerril, DO) Pneumonia (Acute) Left lower lobe pneumonia (Acute) Sepsis (Acute) 1. Acute exacerbation of COPD with chronic hypoxic respiratory failure-low suspicion for pneumonia. Possible viral etiology. Pulmonary medicine consulted. If no further fever after 48 hours, plan to discontinue further antibiotics. Continue prednisone with taper at discharge. Albuterol and DuoNeb aerosols. Respiratory panel negative. Continue supplement oxygen to maintain O2 at above 90%. Walking pulse ox prior to discharge. IV Lasix x1 given due to history of type II/III pulmonary hypertension. 2. Hypokalemia-replace per protocol, resolved. 3. CML-continue outpatient follow-up. 4. Ulcerative colitis/history of C. difficile 5. Anxiety/depression-on alprazolam as needed, buspirone, sertraline. DVT prophylaxis- Lovenox nj This patient was seen by YARELIS Kinney under the supervision of Dr. Jett.
[2020-07-21] MEDS: ALPRAZolam 0.5 MG Tablet PO ×2 (14:28→21:22)
[2020-07-21] MEDS: oxyCODONE 5 MG Tablet 10 MG PO ×2 (14:29→21:21)
[2020-07-21] MEDS: Acetaminophen 325 MG Tablet 650 MG PO (21:22)
[2020-07-22] VITALS (9 sets, daily range): BP systolic 113–144; BP diastolic 64–83; PULSE 96–115; RESP 16–18; TEMP 36.2–36.8; O2SAT 94–97
[2020-07-22] MEDS: busPIRone 5 MG Tablet 20 MG PO ×3 (05:40→21:46)
[2020-07-22] MEDS: Enoxaparin 40 MG/0.4 ML Syringe SC (05:40)
[2020-07-22 06:02] LABS: Anion Gap 6 (5-15); BUN 15 mg/dL (7-18); BUN/Creat Ratio 17.1 RATIO (10-20); Calcium,Total 7.3 mg/dL (8.5-10.1); Chloride 105 mmol/L (98-107); Creatinine, Serum 0.88 mg/dL (0.55-1.02); EST Glomerular Filtration Rate 71 mL/min (>60); Est Glom Filt Rate - Afr Amer 86 mL/min (>60); Estimated Creatinine Clearance 90.86 ml/min; Glucose 194 mg/dL (74-106); Potassium 3.4 mmol/L (3.5-5.1); Sodium Level 140 mmol/L (136-145)
[2020-07-22] MEDS: Albuterol 2.5 MG/3 ML VIAL.NEB. INHALATION ×3 (07:25→19:14)
[2020-07-22] MEDS: ALPRAZolam 0.5 MG Tablet PO ×2 (08:23→21:46)
[2020-07-22] MEDS: oxyCODONE 5 MG Tablet 10 MG PO (08:24)
[2020-07-22] MEDS: predniSONE 20 MG Tablet 40 MG PO (08:31)
--- NOTE | 2020-07-22 09:08 | PCM.PN.PUL ---
Patient Problems: Active and Suspected Problems (Last Reviewed 07/20/20 @ 22:[address] Chi Becerril, DO) Pneumonia (Acute) Left lower lobe pneumonia (Acute) Sepsis (Acute) Subjective: Patient did well overnight. Patient is reporting subjective improvement in overall condition today. Patient was short of breath with walking to the chair, but feels that her exercise tolerance is better compared to yesterday. Patient is still requiring 4 L nasal cannula oxygen to maintain saturations. - Physical Exam Vitals/I&O's: Vital Signs Temp Pulse Resp BP Pulse Ox 36.6 C 100 18 124/79 H 96 07/22/20 03:00 07/22/20 07:36 07/22/20 07:36 07/22/20 03:00 07/22/20 07:36 Oxygen Flow Rate (L/min) 4 Oxygen Delivery Method Nasal Cannula Weight: 81.6 kg Body Mass Index (BMI) 36.3 Intake and Output for Last 24 Hours 07/20/20 07/21/20 07/22/20 23:59 23:59 23:59 Intake Total 1100 / 1100 1785 / 2585 1465 / 1465 Balance 1100 / 1100 1785 / 2585 1465 / 1465 General: Alert, Oriented x3, Cooperative, No apparent distress, Well developed, Well nourished, - - Appears older than stated age. Speaking in full sentences. HEENT: Atraumatic, PERRLA, EOMI, Normocephalic, - - No scleral icterus or injection noted Oral: Moist Mucosa, No Gingival or Mucosal Lesions/ Ulcerations Neck: Supple, No Nodes, Trachea Midline, JVD, Right Lungs: No rhonchi, No wheeze, No rales, Diminished Cardiovascular: Normal S1, Normal S2, No murmurs, No rub noted, No Gallop, Tachycardic Abdomen: Bowel Sounds Present, Soft, Non Tender, Non-Distended Extremities: No clubbing, No cyanosis, Edema - Lower extremity Skin: - - No change compared to previous Musculoskeletal: No Tenderness to Palpation of Joints or Extremities Lymphatic: No Cervical, Supraclavicular, or Inguinal Adenopathy Neurological: Cranial nerves II-XII grossly intact, Neuro grossly intact, Motor Exam 5/5 strength throughout Psych/Mental Status: Alert and oriented to time, place, person, mood and affect Microbiology Past 72 Hours 07/21/20 07:35 Mucosa - Nasopharyngeal Respiratory Panel (PCR) - Final 07/20/20 20:40 Urine, Random Legionella Antigen - Final 07/20/20 20:40 Urine, Random Streptococcus pneumoniae Antigen (M - Final 07/20/20 19:10 Mucosa - Nose Influenza Types A,B Direct FA (BLACK) - Final Laboratory Results 07/22/20 05:14: Sodium 140, Potassium 3.4 L, Chloride 105, Carbon Dioxide 29.0, Anion Gap 6, BUN 15, Creatinine 0.88, Estim Creat Clear Calc 90.86, Est GFR (MDRD) Af Amer 86, Est GFR (MDRD) Non-Af 71, BUN/Creatinine Ratio 17.1, Glucose 194 H, Calcium 7.3 L Current Medications Acetaminophen (Acetaminophen 325 Mg Tablet) 650 mg PO Q6H PRN PRN PRN Reason: Pain Score 1-10/Temp > 100.7 F Last Admin: 07/21/20 21:22 Dose: 650 mg Documented by: Albuterol Sulfate (Albuterol 2.5 Mg/3 Ml Vial.Neb.) 2.5 mg INHALATION Q4H PRN PRN PRN Reason: SOB &/OR WHEEZING Albuterol Sulfate (Albuterol 2.5 Mg/3 Ml Vial.Neb.) 2.5 mg INHALATION Q6HWA.RT [facility] Last Admin: 07/22/20 07:25 Dose: 2.5 mg Documented by: Albuterol/Ipratropium (Ipratropium/Albuterol Sulfate 3 Ml Ampul.Neb) 3 ml INHALATION Q6H PRN PRN Reason: wheezing Alendronate Sodium (Alendronate Sodium 70 Mg Tablet) 70 mg PO Sa@0600 [facility] Alprazolam (Alprazolam 0.5 Mg Tablet) 0.5 mg PO Q6H PRN PRN Reason: ANXIETY Last Admin: 07/22/20 08:23 Dose: 0.5 mg Documented by: Azelastine HCl (Azelastine Hcl Nasal.Sry) 1 spray NASAL BID [facility] Last Admin: 07/21/20 21:23 Dose: 1 spray Documented by: Buspirone HCl (Buspirone 5 Mg Tablet) 20 mg PO TID [facility] Last Admin: 07/22/20 05:40 Dose: 20 mg Documented by: Diltiazem HCl (Diltiazem Cd 240 Mg Capsule) 240 mg PO DAILY [facility] Last Admin: 07/21/20 10:46 Dose: 240 mg Documented by: Enoxaparin Sodium (Enoxaparin 40 Mg/0.4 Ml Syringe) 40 mg SC DAILY@0600 [facility] Last Admin: 07/22/20 05:40 Dose: 40 mg Documented by: Fluticasone Propionate (Fluticasone 0.05% 1 [place] Nasal.Sry) 2 spray NASAL DAILY [facility] Last Admin: 07/21/20 10:46 Dose: 2 spray Documented by: Guaifenesin (Guaifenesin 1,200 Mg Tablet) 1,200 mg PO BID [facility] Last Admin: 07/21/20 21:23 Dose: 1,200 mg Documented by: Vancomycin IV Pharmacy to Dose (1 ea/ Sodium Chloride) 500 mls @ 250 mls/hr IV X1 PRN; Protocol PRN Reason: Rx to Dose Aztreonam 2 gm/ Sodium (Chloride) 100 mls @ 150 mls/hr IV Q8 [facility] Stop: 07/28/20 06:01 Last Infusion: 07/22/20 06:21 Dose: Infused Documented by: Sodium Chloride () 250 mls @ 15 mls/hr IV .[id number] PRN PRN Reason: Saline Flush Sodium Chloride () 250 mls @ 15 mls/hr IV .[id number] PRN PRN Reason: Additional IVPB Infusion Vancomycin HCl 750 mg/ Sodium (Chloride) 265 mls @ 250 mls/hr IV Q12H [facility] Last Infusion: 07/22/20 01:15 Dose: Infused Documented by: Imatinib Mesylate (Imatinib Mesylate 400 Mg Tablet) 400 mg PO DAILY@1600 [facility] Lactobacillus Acidophilus (Lactobacillus Acidophilus) 1 tablet PO DAILY [facility] Last Admin: 07/21/20 10:45 Dose: 1 tablet Documented by: Loratadine (Loratadine 10 Mg Tablet) 10 mg PO DAILY [facility] Last Admin: 07/21/20 10:46 Dose: 10 mg Documented by: Ondansetron HCl (Ondansetron 4 Mg/2 Ml Vial) 4 mg IV Q8H PRN PRN PRN Reason: NAUSEA/VOMITING Oxycodone HCl (Oxycodone 5 Mg Tablet) 10 mg PO Q6H PRN PRN PRN Reason: Pain Score 1-10 Last Admin: 07/22/20 08:24 Dose: 10 mg Documented by: Pantoprazole Sodium (Pantoprazole Sodium 40 Mg Tablet) 40 mg PO DAILY [facility] Last Admin: 07/21/20 10:48 Dose: 40 mg Documented by: Potassium Chloride (Potassium Chloride 20 Meq Tablet) 20 meq PO BID [facility] Last Admin: 07/21/20 21:25 Dose: 20 meq Documented by: Prednisone (Prednisone 20 Mg Tablet) 40 mg PO DAILYCM [facility] Last Admin: 07/22/20 08:31 Dose: 40 mg Documented by: Prochlorperazine Maleate (Prochlorperazine 5 Mg Tablet) 10 mg PO Q6H PRN PRN PRN Reason: NAUSEA Sertraline HCl (Sertraline 50 Mg Tablet) 25 mg PO DAILY [facility] Last Admin: 07/21/20 10:48 Dose: 25 mg Documented by: Sertraline HCl (Sertraline 50 Mg Tablet) 50 mg PO DAILY [facility] Last Admin: 07/21/20 10:49 Dose: 50 mg Documented by: Sodium Chloride (0.9% Saline Lock 10 Ml Syringe) 10 - 40 ml IV UD PRN PRN Reason: SALINE FLUSH Medical Necessity - Tobacco Use Smoking Status: Former smoker Assessment/Plan All Active Problems (Last Reviewed 07/20/20 @ 22:[address] Chi Becerril, DO) Pneumonia (Acute) Left lower lobe pneumonia (Acute) Sepsis (Acute) RECOMMENDATIONS: 1. Continue diuretic challenge 2. Increase activity as tolerated 3. Possible discontinuation of antibiotics if remains afebrile for another 24 hours 4. Transition to full dose prednisone therapy 5. Walking oximetry prior to discharge IMPRESSIONS: 1. Acute exacerbation of COPD secondary to possible viral syndrome Patient with recent hospitalization and extensive antibiotics. Patient reportedly had a fever at home. CT appears to be at its baseline at this time. Patient does have CML at baseline with extensive emphysematous changes. Would repeat viral panel. Increased prednisone to normal dosing for an exacerbation in the interim, but would not expect a response this quickly from prednisone alone. If patient has no fevers after 48-hour, recommend discontinuation of antibiotics altogether. Patient does have a history of type II/III pulmonary hypertension. Improved creatinine suggests better [place] forces after diuresis. Would continue with diuretic therapy. 2. CML Patient does not have significant leukocytosis. Patient is on appropriate chemotherapy. Unfortunately, this does make patient ineligible for evaluation for lung transplantation. However, I doubt this is adding to patient's current situation. 3. Ulcerative colitis/Anxiety/depression/previous C. difficile Complicates care, management, recovery and prognosis. Patient is pending a referral to [facility] for possible endobronchial lung volume reduction. Patient would not tolerate surgical intervention with previous pulmonary function test. Inpatient E&M: 17090 Subs Hosp L2
--- NOTE | 2020-07-22 09:11 | CASEMGMT ---
SW received a message from Ester with [facility]. She is patient's waiver program management intern. She would like d/c instructions faxed to her once completed. Her phone number is: [phone] and fax number is: [phone]. Yasmin RILEY MSW
--- NOTE | 2020-07-22 09:18 | CASEMGMT ---
REGINALD called [facility] and notified them that patient is at [facility]. A message was left and they will call REGINALD back. Yasmin MOODY
[2020-07-22] MEDS: Fluticasone 0.05% 1 SPRAY NASAL.SRY 2 SPRAY NASAL (09:36)
[2020-07-22] MEDS: dilTIAZem CD 240 MG Capsule PO (09:36)
[2020-07-22] MEDS: Sertraline 50 MG Tablet 25 MG PO (09:37)
[2020-07-22] MEDS: Loratadine 10 MG Tablet PO (09:37)
[2020-07-22] MEDS: Pantoprazole Sodium 40 MG Tablet PO (09:37)
[2020-07-22] MEDS: guaiFENesin 1,200 MG Tablet 1200 MG PO ×2 (09:37→21:46)
[2020-07-22] MEDS: Azelastine HCl NASAL.SRY 1 SPRAY NASAL ×2 (09:38→21:47)
[2020-07-22] MEDS: Sertraline 50 MG Tablet PO (09:41)
[2020-07-22] MEDS: Furosemide 40 MG/4 ML Vial IV (12:07)
[2020-07-22] MEDS: 0.9% Saline Lock 10 ML Syringe IV (12:07)
[2020-07-22 12:22] LABS: Vancomycin, Trough Level 12.2 ug/mL (5.0-15.0)
--- NOTE | 2020-07-22 14:25 | PN_ITS ---
Patient Problems: Active and Suspected Problems (Last Reviewed 07/20/20 @ 22:[address] Chi Becerril, DO) Pneumonia (Acute) Left lower lobe pneumonia (Acute) Sepsis (Acute) Reason for Visit: SOB Subjective: Breathing improved but still somewhat dyspneic at rest and with exertion. Cough is productive of green sputum. No chills. No Chest pain. She states she does not feel well enough to go home. Vitals/I&O's: Vital Signs Temp Pulse Resp BP Pulse Ox 97.2 F L 96 16 144/74 H 94 07/22/20 08:00 07/22/20 12:50 07/22/20 12:50 07/22/20 08:00 07/22/20 08:00 Oxygen Flow Rate (L/min) 4 Oxygen Delivery Method Nasal Cannula Weight: 179 lb 14.355 oz Body Mass Index (BMI) 36.3 Intake and Output for Last 24 Hours 07/20/20 07/21/20 07/22/20 23:59 23:59 23:59 Intake Total 1100 / 1100 1785 / 2585 2315 / 2315 Balance 1100 / 1100 1785 / 2585 2315 / 2315 General: Alert, Oriented x3, Cooperative HEENT: Atraumatic, PERRLA, EOMI, Normocephalic Neck: Supple, No JVD, Negative Carotid Bruits Lungs: Diminished, Rales Cardiovascular: Regular rate, No murmurs Abdomen: Bowel Sounds Present, Soft, Non Tender Extremities: No edema, Capillary Refill Less than 3 Seconds Skin: No rashes, No breakdown Musculoskeletal: No Tenderness to Palpation of Joints or Extremities Neurological: Cranial nerves II-XII grossly intact Psych/Mental Status: Normal Affect, Appropriate, Alert and oriented to time, place, person, mood and affect Microbiology Past 72 Hours 07/21/20 07:35 Mucosa - Nasopharyngeal Respiratory Panel (PCR) - Final 07/20/20 20:40 Urine, Random Legionella Antigen - Final 07/20/20 20:40 Urine, Random Streptococcus pneumoniae Antigen (M - Final 07/20/20 19:10 Mucosa - Nose Influenza Types A,B Direct FA (BLACK) - Final Laboratory Results 07/22/20 05:14: Sodium 140, Potassium 3.4 L, Chloride 105, Carbon Dioxide 29.0, Anion Gap 6, BUN 15, Creatinine 0.88, Estim Creat Clear Calc 90.86, Est GFR (MDRD) Af Amer 86, Est GFR (MDRD) Non-Af 71, BUN/Creatinine Ratio 17.1, Glucose 194 H, Calcium 7.3 L 07/22/20 11:34: Vancomycin Trough 12.2 Current Medications Acetaminophen (Acetaminophen 325 Mg Tablet) 650 mg PO Q6H PRN PRN PRN Reason: Pain Score 1-10/Temp > 100.7 F Last Admin: 07/21/20 21:22 Dose: 650 mg Documented by: Albuterol Sulfate (Albuterol 2.5 Mg/3 Ml Vial.Neb.) 2.5 mg INHALATION Q4H PRN PRN PRN Reason: SOB &/OR WHEEZING Albuterol Sulfate (Albuterol 2.5 Mg/3 Ml Vial.Neb.) 2.5 mg INHALATION Q6HWA.RT [facility] Last Admin: 07/22/20 12:50 Dose: 2.5 mg Documented by: Albuterol/Ipratropium (Ipratropium/Albuterol Sulfate 3 Ml Ampul.Neb) 3 ml INHALATION Q6H PRN PRN Reason: wheezing Alendronate Sodium (Alendronate Sodium 70 Mg Tablet) 70 mg PO Sa@0600 [facility] Alprazolam (Alprazolam 0.5 Mg Tablet) 0.5 mg PO Q6H PRN PRN Reason: ANXIETY Last Admin: 07/22/20 08:23 Dose: 0.5 mg Documented by: Azelastine HCl (Azelastine Hcl Nasal.Sry) 1 spray NASAL BID [facility] Last Admin: 07/22/20 09:38 Dose: 1 spray Documented by: Buspirone HCl (Buspirone 5 Mg Tablet) 20 mg PO TID [facility] Last Admin: 07/22/20 05:40 Dose: 20 mg Documented by: Diltiazem HCl (Diltiazem Cd 240 Mg Capsule) 240 mg PO DAILY [facility] Last Admin: 07/22/20 09:36 Dose: 240 mg Documented by: Enoxaparin Sodium (Enoxaparin 40 Mg/0.4 Ml Syringe) 40 mg SC DAILY@0600 [facility] Last Admin: 07/22/20 05:40 Dose: 40 mg Documented by: Fluticasone Propionate (Fluticasone 0.05% 1 [place] Nasal.Sry) 2 spray NASAL DA EDI [facility] Last Admin: 07/22/20 09:36 Dose: 2 spray Documented by: Guaifenesin (Guaifenesin 1,200 Mg Tablet) 1,200 mg PO BID [facility] Last Admin: 07/22/20 09:37 Dose: 1,200 mg Documented by: Vancomycin IV Pharmacy to Dose (1 ea/ Sodium Chloride) 500 mls @ 250 mls/hr IV X1 PRN; Protocol PRN Reason: Rx to Dose Aztreonam 2 gm/ Sodium (Chloride) 100 mls @ 150 mls/hr IV Q8 [facility] Stop: 07/28/20 06:01 Last Infusion: 07/22/20 06:21 Dose: Infused Documented by: Sodium Chloride () 250 mls @ 15 mls/hr IV .[id number] PRN PRN Reason: Saline Flush Sodium Chloride () 250 mls @ 15 mls/hr IV .[id number] PRN PRN Reason: Additional IVPB Infusion Vancomycin HCl 750 mg/ Sodium (Chloride) 265 mls @ 250 mls/hr IV Q12H [facility] Last Admin: 07/22/20 12:29 Dose: 250 mls/hr Documented by: Imatinib Mesylate (Imatinib Mesylate 400 Mg Tablet) 400 mg PO DAILY@1600 [facility] Lactobacillus Acidophilus (Lactobacillus Acidophilus) 1 tablet PO DAILY [facility] Last Admin: 07/22/20 09:37 Dose: 1 tablet Documented by: Loratadine (Loratadine 10 Mg Tablet) 10 mg PO DAILY [facility] Last Admin: 07/22/20 09:37 Dose: 10 mg Documented by: Ondansetron HCl (Ondansetron 4 Mg/2 Ml Vial) 4 mg IV Q8H PRN PRN PRN Reason: NAUSEA/VOMITING Oxycodone HCl (Oxycodone 5 Mg Tablet) 10 mg PO Q6H PRN PRN PRN Reason: Pain Score 1-10 Last Admin: 07/22/20 08:24 Dose: 10 mg Documented by: Pantoprazole Sodium (Pantoprazole Sodium 40 Mg Tablet) 40 mg PO DAILY [facility] Last Admin: 07/22/20 09:37 Dose: 40 mg Documented by: Potassium Chloride (Potassium Chloride 20 Meq Tablet) 20 meq PO BID [facility] Last Admin: 07/22/20 09:36 Dose: 20 meq Documented by: Prednisone (Pred[facility] 20 Mg Tablet) [facility] Last Admin: 07/22/20 08:31 Dose: 40 mg Documented by: Prochlorperazine Maleate (Prochlorperazine 5 Mg Tablet) 10 mg PO Q6H PRN PRN PRN Reason: NAUSEA Sertraline HCl (Sertraline 50 Mg Tablet) 25 mg PO DAILY [facility] Last Admin: 07/22/20 09:37 Dose: 25 mg Documented by: Sertraline HCl (Sertraline 50 Mg Tablet) 50 mg PO DAILY [facility] Last Admin: 07/22/20 09:41 Dose: 50 mg Documented by: Sodium Chloride (0.9% Saline Lock 10 Ml Syringe) 10 - 40 ml IV UD PRN PRN Reason: SALINE FLUSH Last Admin: 07/22/20 12:07 Dose: 10 ml Documented by: STROKE Vital Signs/Narrative: Vital Signs Pulse Resp 07/22/20 12:50 96 16 Medical Necessity - Tobacco Use Smoking Status: Former smoker Assessment/Plan All Active Problems (Last Reviewed 07/20/20 @ 22:[address] Chi Becerril, DO) Pneumonia (Acute) Left lower lobe pneumonia (Acute) Sepsis (Acute) 1. Acute COPD exacerbation, chronic hypoxic resp failure, acute bronchitis, complicated by pulmonary HTN - continue vanc/aztreonam. Tmax 100.6. O2 demand at baseline - 4lpm. Continue steroids, aerosols, Incentive spirometer, pep therapy. pulmonary medicine following. Repeat 40 mg IV lasix x1 today. CTA with no PE. -resp panel negative -blood cx pending -urine antigens negative -covid neg -flu screen neg 2. Hypokalemia - replete K+, mag normal, check phos. 3. CML - continue gleevec 4. Hx UC, C diff - no GI compalints at this time 5. Anx/Depression - continue home meds DVT ppx: lovenox DC planning: walking pulse ox in AM. Home on steroid taper and PO abx. This patient was seen by Lizandro Rodriguez PA-C under the supervision of Dr. Jett.
--- NOTE | 2020-07-22 17:14 | PCM.RX.CS ---
Consult Pharmacy has been consulted to manage selected antiobiotic: Vancomycin Type of Consult: Follow-up Suspected Infection: Pneumonia Prior Doses of Antibiotics Received/Current Regimen: On 750mg iv q12h Labs: Sodium 140 mmol/L (136-145) 07/22/20 05:14 Potassium 3.4 mmol/L (3.5-5.1) L 07/22/20 05:14 Chloride 105 mmol/L (98-107) 07/22/20 05:14 Carbon Dioxide 29.0 mmol/L (21.0-32.0) 07/22/20 05:14 Anion Gap 6 (5-15) 07/22/20 05:14 BUN 15 mg/dL (7-18) 07/22/20 05:14 Creatinine 0.88 mg/dL (0.55-1.02) 07/22/20 05:14 Est GFR (MDRD) Af Amer 86 mL/min (>60) 07/22/20 05:14 Est GFR (MDRD) Non-Af 71 mL/min (>60) 07/22/20 05:14 BUN/Creatinine Ratio 17.1 RATIO (-) 07/22/20 05:14 Glucose 194 mg/dL (74-106) H 07/22/20 05:14 Vancomycin Trough 12.2 ug/mL (5.0-15.0) 07/22/20 11:34 Microbiology: Microbiology 07/21/20 07:35 Mucosa - Nasopharyngeal Respiratory Panel (PCR) - Final 07/20/20 20:40 Urine, Random Legionella Antigen - Final 07/20/20 20:40 Urine, Random Streptococcus pneumoniae Antigen (M - Final 07/20/20 19:10 Mucosa - Nose Influenza Types A,B Direct FA (BLACK) - Final Weight used for dosin.6 kg Estimated Creatinine Clearance: ~65ml/min Goal Trough: 15-20 mcg/mL Pharmacy Plan for Drug Dosing: Trough today 12.2 (goal range 15-20mcg/ml). Renal function of CrCl ~65ml/min for adjusted body weight. Will increase dose to 1gm iv q12h and get another trough dose before 4th dose of new regimen. Pharmacy Service will continue to monitor and adjust dosing as required. Follow-Up Labs: Trough Vancomycin - 07.24.20 @1137
[2020-07-22] MEDS: Vancomycin IV 1,000 MG/200 ML BAG 200 MG IV (23:52)
[2020-07-23] VITALS (7 sets, daily range): BP systolic 115–149; BP diastolic 72–92; PULSE 100–116; RESP 16–24; TEMP 36.6–36.8; O2SAT 90–99
[2020-07-23] MEDS: Albuterol 2.5 MG/3 ML VIAL.NEB. INHALATION ×3 (02:44→13:01)
[2020-07-23] MEDS: busPIRone 5 MG Tablet 20 MG PO (05:16)
[2020-07-23] MEDS: 0.9% Saline Lock 10 ML Syringe IV ×2 (05:16→08:48)
[2020-07-23 07:07] LABS: Anion Gap 3 (5-15); BUN 18 mg/dL (7-18); BUN/Creat Ratio 21.3 RATIO (10-20); Calcium,Total 7.6 mg/dL (8.5-10.1); Chloride 109 mmol/L (98-107); Creatinine, Serum 0.84 mg/dL (0.55-1.02); EST Glomerular Filtration Rate 74 mL/min (>60); Est Glom Filt Rate - Afr Amer 89 mL/min (>60); Estimated Creatinine Clearance 95.19 ml/min; Glucose 162 mg/dL (74-106); Potassium 3.5 mmol/L (3.5-5.1); Sodium Level 142 mmol/L (136-145)
[2020-07-23] MEDS: dilTIAZem CD 240 MG Capsule PO (08:36)
[2020-07-23] MEDS: predniSONE 20 MG Tablet 40 MG PO (08:36)
[2020-07-23] MEDS: Loratadine 10 MG Tablet PO (08:37)
[2020-07-23] MEDS: guaiFENesin 1,200 MG Tablet 1200 MG PO (08:37)
[2020-07-23] MEDS: Sertraline 50 MG Tablet 25 MG PO (08:37)
--- NOTE | 2020-07-23 08:37 | PCM.PN.PUL ---
Patient Problems: Active and Suspected Problems (Last Reviewed 07/20/20 @ 22:[address] Chi Becerril, DO) Pneumonia (Acute) Left lower lobe pneumonia (Acute) Sepsis (Acute) Subjective: Patient is doing well this morning. Patient did report a coughing episode with secondary shortness of breath overnight. Patient is on her baseline nasal cannula oxygen. Patient denies any pain at this time. - Physical Exam Vitals/I&O's: Vital Signs Temp Pulse Resp BP Pulse Ox 36.6 C 100 20 H 115/72 98 07/23/20 08:30 07/23/20 08:30 07/23/20 08:30 07/23/20 08:30 07/23/20 08:30 Oxygen Flow Rate (L/min) 4 Oxygen Delivery Method Nasal Cannula Weight: 81.6 kg Body Mass Index (BMI) 36.3 Intake and Output for Last 24 Hours 07/21/20 07/22/20 07/23/20 23:59 23:59 23:59 Intake Total 1785 / 2585 3560 / 3860 800 / 800 Output Total 300 / 300 Balance 1785 / 2585 3260 / 3560 800 / 800 General: Alert, Oriented x3, Cooperative, - - Mild conversational dyspnea. Obese. HEENT: Atraumatic, PERRLA, EOMI, Normocephalic, - - No scleral icterus or injection noted. Exotropia noted (baseline) Oral: Moist Mucosa, No Gingival or Mucosal Lesions/ Ulcerations Neck: Supple, No JVD, No Nodes, Trachea Midline Lungs: No rhonchi, No rales, Diminished, Wheezes Cardiovascular: Normal S1, Normal S2, No murmurs, No rub noted, No Gallop, Tachycardic Abdomen: Bowel Sounds Present, Soft, Non Tender, Non-Distended, Obese Extremities: No clubbing, No cyanosis, Edema Skin: - - No change compared to previous Musculoskeletal: No Tenderness to Palpation of Joints or Extremities Lymphatic: No Cervical, Supraclavicular, or Inguinal Adenopathy Neurological: Cranial nerves II-XII grossly intact, Neuro grossly intact, Motor Exam 5/5 strength throughout Psych/Mental Status: Alert and oriented to time, place, person, mood and affect Microbiology Past 72 Hours 07/21/20 07:35 Mucosa - Nasopharyngeal Respiratory Panel (PCR) - Final 07/20/20 20:40 Urine, Random Legionella Antigen - Final 07/20/20 20:40 Urine, Random Streptococcus pneumoniae Antigen (M - Final 07/20/20 19:10 Mucosa - Nose Influenza Types A,B Direct FA (BLACK) - Final Laboratory Results 07/22/20 11:34: Vancomycin Trough 12.2 07/23/20 05:50: Sodium 142, Potassium 3.5, Chloride 109 H, Carbon Dioxide 30.0, Anion Gap 3 L, BUN 18, Creatinine 0.84, Estim Creat Clear Calc 95.19, Est GFR (MDRD) Af Amer 89, Est GFR (MDRD) Non-Af 74, BUN/Creatinine Ratio 21.3 H, Glucose 162 H, Calcium 7.6 L, Phosphorus 1.0 L* Current Medications Acetaminophen (Acetaminophen 325 Mg Tablet) 650 mg PO Q6H PRN PRN PRN Reason: Pain Score 1-10/Temp > 100.7 F Last Admin: 07/21/20 21:22 Dose: 650 mg Documented by: Albuterol Sulfate (Albuterol 2.5 Mg/3 Ml Vial.Neb.) 2.5 mg INHALATION Q4H PRN PRN PRN Reason: SOB &/OR WHEEZING Last Admin: 07/23/20 02:44 Dose: 2.5 mg Documented by: Albuterol Sulfate (Albuterol 2.5 Mg/3 Ml Vial.Neb.) 2.5 mg INHALATION Q6HWA.RT [facility] Last Admin: 07/23/20 07:11 Dose: 2.5 mg Documented by: Albuterol/Ipratropium (Ipratropium/Albuterol Sulfate 3 Ml Ampul.Neb) 3 ml INHALATION Q6H PRN PRN Reason: wheezing Alendronate Sodium (Alendronate Sodium 70 Mg Tablet) 70 mg PO Sa@0600 [facility] Alprazolam (Alprazolam 0.5 Mg Tablet) 0.5 mg PO Q6H PRN PRN Reason: ANXIETY Last Admin: 07/22/20 21:46 Dose: 0.5 mg Documented by: Azelastine HCl (Azelastine Hcl Nasal.Sry) 1 spray NASAL BID [facility] Last Admin: 07/22/20 21:47 Dose: 1 spray Documented by: Buspirone HCl (Buspirone 5 Mg Tablet) 20 mg PO TID [facility] Last Admin: 07/23/20 05:16 Dose: 20 mg Documented by: Diltiazem HCl (Diltiazem Cd 240 Mg Capsule) 240 mg PO DAILY [facility] Last Admin: 07/22/20 09:36 Dose: 240 mg Documented by: Enoxaparin Sodium (Enoxaparin 40 Mg/0.4 Ml Syringe) 40 mg SC DAILY@0600 [facility] Last Admin: 07/23/20 05:24 Dose: Not Given Documented by: Fluticasone Propionate (Fluticasone 0.05% 1 [place] Nasal.Sry) 2 spray NASAL DAILY [facility] Last Admin: 07/22/20 09:36 Dose: 2 spray Documented by: Guaifenesin (Guaifenesin 1,200 Mg Tablet) 1,200 mg PO BID [facility] Last Admin: 07/22/20 21:46 Dose: 1,200 mg Documented by: Vancomycin IV Pharmacy to Dose (1 ea/ Sodium Chloride) 500 mls @ 250 mls/hr IV X1 PRN; Protocol PRN Reason: Rx to Dose Aztreonam 2 gm/ Sodium (Chloride) 100 mls @ 150 mls/hr IV Q8 [facility] Stop: 07/28/20 06:01 Last Admin: 07/23/20 05:16 Dose: 150 mls/hr Documented by: Sodium Chloride () 250 mls @ 15 mls/hr IV .[id number] PRN PRN Reason: Saline Flush Sodium Chloride () 250 mls @ 15 mls/hr IV .[id number] PRN PRN Reason: Additional IVPB Infusion Vancomycin HCl (Vancomycin) 1,000 mg in 200 mls @ 200 mls/hr IV Q12H [facility] Last Infusion: 07/23/20 00:52 Dose: Infused Documented by: Potassium Phosphate 30 mm/ (Sodium Chloride) 260 mls @ 42 mls/hr IV X1 ONE Stop: 07/23/20 13:29 Imatinib Mesylate (Imatinib Mesylate 400 Mg Tablet) 400 mg PO DAILY@1600 [facility] Last Admin: 07/22/20 15:52 Dose: 400 mg Documented by: Lactobacillus Acidophilus (Lactobacillus Acidophilus) 1 tablet PO DAILY [facility] Last Admin: 07/22/20 09:37 Dose: 1 tablet Documented by: Loratadine (Loratadine 10 Mg Tablet) 10 mg PO DAILY [facility] Last Admin: 07/22/20 09:37 Dose: 10 mg Documented by: Ondansetron HCl (Ondansetron 4 Mg/2 Ml Vial) 4 mg IV Q8H PRN PRN PRN Reason: NAUSEA/VOMITING Oxycodone HCl (Oxycodone 5 Mg Tablet) 10 mg PO Q6H PRN PRN PRN Reason: Pain Score 1-10 Last Admin: 07/22/20 08:24 Dose: 10 mg Documented by: Pantoprazole Sodium (Pantoprazole Sodium 40 Mg Tablet) 40 mg PO DAILY [facility] Last Admin: 07/22/20 09:37 Dose: 40 mg Documented by: Potassium Chloride (Potassium Chloride 20 Meq Tablet) 20 meq PO BID [facility] Last Admin: 07/22/20 21:46 Dose: 20 meq Documented by: Prednisone ([facility] Mg Tablet) [facility] Last Admin: 07/22/20 08:31 Dose: 40 mg Documented by: Prochlorperazine Maleate (Prochlorperazine 5 Mg Tablet) 10 mg PO Q6H PRN PRN PRN Reason: NAUSEA Sertraline HCl (Sertraline 50 Mg Tablet) 25 mg PO DAILY [facility] Last Admin: 07/22/20 09:37 Dose: 25 mg Documented by: Sertraline HCl (Sertraline 50 Mg Tablet) 50 mg PO DAILY [facility] Last Admin: 07/22/20 09:41 Dose: 50 mg Documented by: Sodium Chloride (0.9% Saline Lock 10 Ml Syringe) 10 - 40 ml IV UD PRN PRN Reason: SALINE FLUSH Last Admin: 07/23/20 05:16 Dose: 10 ml Documented by: Medical Necessity - Tobacco Use Smoking Status: Former smoker Assessment/Plan All Active Problems (Last Reviewed 07/20/20 @ 22:[address] Chi Becerril, DO) Pneumonia (Acute) Left lower lobe pneumonia (Acute) Sepsis (Acute) RECOMMENDATIONS: 1. Continue diuretic challenge 2. Increase activity as tolerated 3. Okay to discontinue antibiotics from my perspective 4. Wean steroids over the next 12 to 14 days 5. Walking oximetry prior to discharge 6. Consider improved rate control IMPRESSIONS: 1. Acute exacerbation of COPD secondary to possible viral syndrome Patient with recent hospitalization and extensive antibiotics. Patient reportedly had a fever at home. CT appears to be at its baseline at this time. Patient does have CML at baseline with extensive emphysematous changes. Prednisone can likely be weaned over the next 12 to 14 days. Likely okay to discontinue antibiotics from my perspective as patient has been afebrile without leukocytosis for over 48 hours. Patient does have a history of type II/III pulmonary hypertension. Improved creatinine suggests better [place] forces after diuresis. Would continue with diuretic therapy. Patient likely has an element of age-related diastolic dysfunction and would also benefit from improved rate control. Okay to use beta-mara from a pulmonary perspective 2. CML Patient does not have significant leukocytosis. Patient is on appropriate chemotherapy. Unfortunately, this does make patient ineligible for evaluation for lung transplantation. However, I doubt this is adding to patient's current situation. 3. Ulcerative colitis/Anxiety/depression/previous C. difficile Complicates care, management, recovery and prognosis. Patient is pending a referral to [facility] for possible endobronchial lung volume reduction. Patient would not tolerate surgical intervention with previous pulmonary function test. Inpatient E&M: [id number] [facility] L2
[2020-07-23] MEDS: Pantoprazole Sodium 40 MG Tablet PO (08:38)
[2020-07-23] MEDS: Sertraline 50 MG Tablet PO (08:38)
[2020-07-23] MEDS: Azelastine HCl NASAL.SRY 1 SPRAY NASAL (08:39)
[2020-07-23] MEDS: Fluticasone 0.05% 1 SPRAY NASAL.SRY 2 SPRAY NASAL (08:39)
[2020-07-23] MEDS: Furosemide 40 MG/4 ML Vial IV (08:45)
[2020-07-23] MEDS: oxyCODONE 5 MG Tablet 10 MG PO (08:47)
[2020-07-23] MEDS: ALPRAZolam 0.5 MG Tablet PO (08:47)
--- NOTE | 2020-07-23 11:12 | CASEMGMT ---
H&P, face sheet, and ECTOR order faxed to [facility] at this time and call to [facility] to notify of discharge, voice understanding. Justyn BEST CM
--- NOTE | 2020-07-23 11:20 | DCINST_ITS ---
- Discharge Diagnoses Current Active Problems: Current Active and Chronic Problems (Last Reviewed 07/20/20 @ 22:[address] Chi Becerril, DO) Pneumonia (Acute) Left lower lobe pneumonia (Acute) Sepsis (Acute) Tachycardia (Chronic) Hypokalemia (Chronic) Fibromyalgia (Chronic) Nicotine abuse (Chronic) Stage 3 severe COPD by GOLD classification (Chronic) Chronic hypoxemic respiratory failure (Chronic) Ulcerative colitis (Chronic) Poor compliance with medication (Chronic) CML (chronic myelocytic leukemia) (Chronic) Emphysema of lung (Chronic) You will use the following diet at home:: Cardiac Your food should be the consistency of: Regular Your liquids should be the consistency of: Regular/Thin Discharge Activity: Return to Normal Activity Allergies/Adverse Reactions: Allergies Penicillins Allergy (Severe, Verified 07/20/20 19:09) Hives Sulfa (Sulfonamide Antibiotics) Allergy (Intermediate, Verified 07/20/20 19:09) Hives azithromycin Adverse Reaction (Severe, Verified 07/20/20 19:09) Diarrhea codeine Adverse Reaction (Severe, Verified 07/20/20 19:09) Vomiting ondansetron [From Zofran] Adverse Reaction (Severe, Verified 07/20/20 19:09) Nausea ondansetron HCl [From Zofran (as hydrochloride)] Adverse Reaction (Severe, Verified 07/20/20 19:09) Nausea pregabalin [From Lyrica] Adverse Reaction (Severe, Verified 07/20/20 19:09) i can't see propoxyphene napsylate [From Darvocet-N 100] Adverse Reaction (Severe, Verified 07/20/20 19:09) Vomiting Medications to take at Discharge Albuterol Aerosols [Ventolin Aerosols] 2.5 mg INHALATION Q4H PRN PRN 10/18/18 Budesonide/Formoterol Fumarate [Symbicort 160-4.5 Mcg Inhaler] 2 puff IH BID 10/18/18 Diltiazem CD [Cardizem CD] 240 mg PO DAILY 10/18/18 Sertraline HCl [Zoloft] 50 mg PO DAILY 10/18/18 albuterol sulfate 90 mcg/actuation aerosol inhaler 2 puff INHALATION Q4H PRN PRN #18 g 01/14/19 potassium chloride 20 mEq tablet,extended release(part/cryst) 20 meq PO BID 04/14/19 omeprazole 40 mg capsule,delayed release 40 mg PO DAILY 04/15/19 sertraline 25 mg tablet 25 mg PO DAILY 04/15/19 alprazolam 0.5 mg tablet 0.5 mg PO Q6H PRN tab 07/15/19 buspirone 10 mg tablet 20 mg PO TID tab 07/15/19 prochlorperazine maleate 10 mg tablet 10 mg PO Q6H PRN 07/15/19 fluticasone propionate 50 mcg/actuation nasal spray,suspension 2 spray INTRANASAL DAILY #50 mcg 12/31/19 ipratropium 0.5 mg-albuterol 3 mg (2.5 mg base)/3 mL nebulization soln 3 ml INHALATION Q6H PRN ml 03/31/20 Alendronate Sodium [Fosamax] 70 mg PO SA 07/06/20 Azelastine HCl 1 spray NS BID 07/06/20 Imatinib Mesylate [Gleevec] 400 mg PO DAILY 07/06/20 Lactobacillus Acidophilus [Probiotic Acidophilus] 1 ea PO DAILY 07/06/20 Loratadine 10 mg PO DAILY 07/06/20 Oxycodone [Oxyir] 10 mg PO Q6H PRN PRN 07/06/20 Prednisone See Taper PO DAILY #30 tab 07/23/20 The following prescriptions were given: Prednisone See Taper PO DAILY #30 tab Prescription Printed Primary Care Physician: Jennifer Coelho NP, TELEMETRY REGISTERED NURSE-C [Primary Care Provider] - Please follow up with your Primary Care Physician in: 1-2 weeks Test Results: Test results from this visit will be discussed in further detail at your follow- up appointment, if applicable. Please Follow Up With: Brenden Ridley MD When: 2 weeks Please Follow Up With: Rayshawn Gotti MD When: 3-4 weeks Proposed Discharge Date: 07/23/20
--- NOTE | 2020-07-23 11:32 | CASEMGMT ---
REGINALD called patient's waiver foster care case manager Ester and left her a voice mail requesting a return call regarding one of her patients. REGINALD did not leave patient's information as the voice mail did not say it was confidential nor did it say who it belonged to. REGINALD will fax d/c instructions to her as well. REGINALD also called [facility] and left a message for Chaya letting her know patient is being discharged today and SW will fax d/c instructions. Yasmin IRLEY MSW
[2020-07-23] MEDS: Na Biphos/Potassium Phosphate PACKET 1 PACKET PO (12:47)
--- NOTE | 2020-07-23 13:16 | NURSING ---
Spo2 on 4L o2 [address] at rest was 99%, Spo2 on 4L NC while walking in the [place] as 90%.
--- NOTE | 2020-07-23 15:09 | PCM.DC.SUM ---
Discharge Date and Diagnosis - Problem List Patient Problems: Active and Suspected Problems (Last Reviewed 07/20/20 @ 22:[address] Chi Becerril DO) Pneumonia (Acute) Left lower lobe pneumonia (Acute) Sepsis (Acute) Date of Admission: 07/20/20 Date of Discharge: 07/23/20 - Primary Discharge Diagnosis Acute Problems: Active Problems (Last Reviewed 07/20/20 @ 22:[address] Chi Becerril DO) Acute COPD exacerbation Acute viral syndrome Pneumonia and sepsis ruled out CML - Secondary Discharge Diagnosis Chronic Problems: Chronic Problems (Last Reviewed 07/20/20 @ 22:[address] Chi Becerril DO) Tachycardia (Chronic) Hypokalemia (Chronic) Fibromyalgia (Chronic) Nicotine abuse (Chronic) Stage 3 severe COPD by GOLD classification (Chronic) Chronic hypoxemic respiratory failure (Chronic) Ulcerative colitis (Chronic) Poor compliance with medication (Chronic) CML (chronic myelocytic leukemia) (Chronic) Emphysema of lung (Chronic) Hospital Course and Treatment Imaging Results: RAD/Chest 1 View (Portable) IMPRESSION: Persistent left costophrenic angle opacity similar to previous study. Right basilar atelectasis. Mild cardiomegaly. CT/CTA Chest W/WO Contrast IMPRESSION: No demonstrated pulmonary embolism or arterial dissection. Bilateral dependent consolidation. Left upper lobe 13.5 mm nodular opacity, may reflect focal scarring and/or atelectasis however cannot exclude a neoplastic process, consider short interval follow-up chest CT in 3 months or PET/CT for further evaluation. Scattered sclerotic foci throughout the thoracic vertebra, cannot exclude underlying neoplastic process. Emphysema. Cardiomegaly. Atherosclerosis. Consults: Pulmonary - Khai Operations: None Procedures: None Summary of Care Provided: Hospital course: The patient is a 59 year old F with past medical history as above who presented to the emergency room with fatigue, nausea, vomiting, fever, and worsening shortness of breath. She had recently completed a course of antibiotics following a hospitalization. She was initially felt to have sepsis and possible pneumonia. She was admitted and placed on IV antibiotics and pulmonary medicine was consulted. CTA of the chest demonstrated emphysema, cardiomegaly, dependent consolidation, no PE, upper lobe 13.5 mm nodular opacity. COVID-19 test was negative. Respiratory panel was negative, urine antigens were negative, flu test was negative, blood cultures were negative at 48 hours. Pulmonology felt that the patient did not have sepsis or pneumonia and likely had a viral syndrome. There is also some concern for volume overload she was given IV Lasix. She was treated with IV steroids for COPD exacerbation. She responded well to these therapies. She was able to remain stable at her home oxygen level at rest and with exertion. She was discharged home in stable condition with resumption of home health care and palliative services. She will need to follow-up with pulmonology in 2 weeks, follow-up with her PCP in 1 to 2 weeks, oncology in 3 to 4 weeks. This patient was seen by Lizandro Rodriguez PA-C under the supervision of Doctor Jett. [] Patient Problems: Active and Suspected Problems (Last Reviewed 07/20/20 @ 22:[address] Chi Becerril, DO) Pneumonia (Acute) Left lower lobe pneumonia (Acute) Sepsis (Acute) - Physical Exam Vitals/I&O's: Vital Signs Temp Pulse Resp BP Pulse Ox 97.8 F 116 H 22 H 149/92 H 99 07/23/20 13:17 07/23/20 13:17 07/23/20 13:17 07/23/20 13:17 07/23/20 13:17 Oxygen Flow Rate (L/min) 4 Oxygen Delivery Method Nasal Cannula Weight: 179 lb 14.355 oz Body Mass Index (BMI) 36.3 Intake and Output for Last 24 Hours 07/21/20 07/22/20 07/23/20 23:59 23:59 23:59 Intake Total 1785 / 2585 3560 / 3860 1252.7 / 1252.7 Output Total 300 / 300 1300 / 1300 Balance 1785 / 2585 3260 / 3560 -47.3 / -47.3 General: Alert, Oriented x3, Cooperative HEENT: Atraumatic, PERRLA, EOMI, Normocephalic Neck: Supple, No JVD, Negative Carotid Bruits Lungs: Diminished, Wheezes Cardiovascular: Regular rate, No murmurs Abdomen: Bowel Sounds Present, Soft, Non Tender Extremities: No edema, Capillary Refill Less than 3 Seconds Skin: No rashes, No breakdown Musculoskeletal: No Tenderness to Palpation of Joints or Extremities Neurological: Cranial nerves II-XII grossly intact Psych/Mental Status: Normal Affect, Appropriate Microbiology Past 72 Hours 07/20/20 19:25 Blood Culture (Wb) - Right Hand Blood Culture - Preliminary No growth in 48 hours. 07/20/20 19:45 Blood Culture (Wb) - Left Wrist Blood Culture - Preliminary No growth in 48 hours. 07/21/20 07:35 Mucosa - Nasopharyngeal Respiratory Panel (PCR) - Final 07/20/20 20:40 Urine, Random Legionella Antigen - Final 07/20/20 20:40 Urine, Random Streptococcus pneumoniae Antigen (M - Final 07/20/20 19:10 Mucosa - Nose Influenza Types A,B Direct FA (BLACK) - Final Laboratory Results 07/23/20 05:50: Sodium 142, Potassium 3.5, Chloride 109 H, Carbon Dioxide 30.0, Anion Gap 3 L, BUN 18, Creatinine 0.84, Estim Creat Clear Calc 95.19, Est GFR (MDRD) Af Amer 89, Est GFR (MDRD) Non-Af 74, BUN/Creatinine Ratio 21.3 H, Glucose 162 H, Calcium 7.6 L, Phosphorus 1.0 L* Discharge Diet: Low fat/ Low Cholesterol, 2000 mg Sodium Diet Discharge Activity: Return to Normal Activity Home Medications: Medications to take at Discharge Albuterol Aerosols [Ventolin Aerosols] 2.5 mg INHALATION Q4H PRN PRN 10/18/18 Budesonide/Formoterol Fumarate [Symbicort 160-4.5 Mcg Inhaler] 2 puff IH BID 10/18/18 Diltiazem CD [Cardizem CD] 240 mg PO DAILY 10/18/18 Sertraline HCl [Zoloft] 50 mg PO DAILY 10/18/18 albuterol sulfate 90 mcg/actuation aerosol inhaler 2 puff INHALATION Q4H PRN PRN #18 g 01/14/19 potassium chloride 20 mEq tablet,extended release(part/cryst) 20 meq PO BID 04/14/19 omeprazole 40 mg capsule,delayed release 40 mg PO DAILY 04/15/19 sertraline 25 mg tablet 25 mg PO DAILY 04/15/19 alprazolam 0.5 mg tablet 0.5 mg PO Q6H PRN tab 07/15/19 buspirone 10 mg tablet 20 mg PO TID tab 07/15/19 prochlorperazine maleate 10 mg tablet 10 mg PO Q6H PRN 07/15/19 fluticasone propionate 50 mcg/actuation nasal spray,suspension 2 spray INTRANASAL DAILY #50 mcg 12/31/19 ipratropium 0.5 mg-albuterol 3 mg (2.5 mg base)/3 mL nebulization soln 3 ml INHALATION Q6H PRN ml 03/31/20 Alendronate Sodium [Fosamax] 70 mg PO SA 07/06/20 Azelastine HCl 1 spray NS BID 07/06/20 Imatinib Mesylate [Gleevec] 400 mg PO DAILY 07/06/20 Lactobacillus Acidophilus [Probiotic Acidophilus] 1 ea PO DAILY 07/06/20 Loratadine 10 mg PO DAILY 07/06/20 Oxycodone [Oxyir] 10 mg PO Q6H PRN PRN 07/06/20 Prednisone See Taper PO DAILY #30 tab 07/23/20 Following Prescriptions Were Given to Patient: Prednisone See Taper PO DAILY #30 tab Prescription Printed Primary Care Physician: Jennifer Coelho NP, ANALYTICS LEADER-C [Primary Care Provider] - Please follow up with your Primary Care Physician in: 1-2 weeks Please Follow Up With: Brenden Ridley MD When: 2 weeks Please Follow Up With: Rayshawn Gotti MD When: 3-4 weeks Please Follow Up With: Jennifer Coelho NP, ANALYTICS LEADER-C Disposition: Home with Home Health Minutes spent on discharge:: 35 Patient Condition:: Stable Medical Necessity - Tobacco Use Smoking Status: Former smoker Meaningful Use Info Meaningful Use Diagnoses (Choose all that apply): None applicable
--- NOTE | 2020-07-23 15:14 | PCA ---
[place] found in patients room after discharge. Called patient, , and she stated she would pick up truck driver at the main entrance.
--- NOTE | 2020-07-26 17:12 | CASEMGMT ---
[facility] Discharge Follow-up Phone Call: DANNY: Rebecca Strata: 3 Call Date: Discharge Date: 07/23/2020 Time of Call: 1710 Admitting Diagnosis: COPD exacerbation Discharge follow-up call placed to pt. Pt states she has been feeling better since being discharged. Pt denies any difficulty with breathing. Pt states she obtained the prednisone and is taking it as prescribed. Pt aware of follow-up appointments and denies any questions regarding them. Pt states the home health nurse was out to visit today. Pt denies any questions or concerns at this time. Chuckie Lao RN CM
== END 2020-07-23 13:40 | disposition home or self-care (01) | DRG 140 ==
LOC: ED 22:04 → PCU 22:32
PROVIDERS: Nurse Practitioner Family; Physician Assistant; Emergency Provider Emergency Medicine; PCP Nurse Practitioner Family; Visit Provider Internal Medicine
DX: J44.0 Chronic obstructive pulmonary disease with (acute) lower respiratory infection (principal); J44.1 Chronic obstructive pulmonary disease with (acute) exacerbation; J20.9 Acute bronchitis, unspecified; J18.9 Pneumonia, unspecified organism; R91.8 Other nonspecific abnormal finding of lung field; J96.11 Chronic respiratory failure with hypoxia; C92.10 Chronic myeloid leukemia, BCR/ABL-positive, not having achieved remission; K51.90 Ulcerative colitis, unspecified, without complications; M79.7 Fibromyalgia; E83.42 Hypomagnesemia; E87.6 Hypokalemia; F32.9 Major depressive disorder, single episode, unspecified; F41.9 Anxiety disorder, unspecified; I27.20 Pulmonary hypertension, unspecified; I45.10 Unspecified right bundle-branch block; Z68.36 Body mass index [BMI] 36.0-36.9, adult; E66.9 Obesity, unspecified; Z91.14 Patient's other noncompliance with medication regimen; Z79.899 Other long term (current) drug therapy; Z87.891 Personal history of nicotine dependence; Z87.01 Personal history of pneumonia (recurrent); Z86.19 Personal history of other infectious and parasitic diseases; Z99.81 Dependence on supplemental oxygen
CPT/HCPCS: 36415; 71045; 71275; 80048; 80053; 80202; 81001; 83605; 83735; 84100; 84484; 85025; 85610; 85730; 87040; 87449; 87633; 87635; 87804; 93005; 94640; 97110; 97116; 97162; 97166; 97530; 97802; 99251; 99282; J7030; J7040; J7050; Q9967; A4216; G0463; J1940; U0003

== ENCOUNTER 2020-08-12 12:08 | Observation (INO) | payer MEDICAID, SELFPAY ==
[2020-08-12] VITALS (10 sets, daily range): BP systolic 108–122; BP diastolic 78–85; PULSE 86–113; RESP 15–22; TEMP 36.9–37.5; O2SAT 93–95; BMI 36.2
--- NOTE | 2020-08-12 12:27 | EKG12_ITS ---
Test Reason : SOB Blood Pressure : / mmHG Vent. Rate : 105 BPM Atrial Rate : 105 BPM P-R Int : 134 ms QRS Dur : 080 ms QT Int : 332 ms P-R-T Axes : 027 059 030 degrees QTc Int : 438 ms Sinus tachycardia Nonspecific T wave abnormality Abnormal ECG Confirmed by RONAL MURO, DINH ([id number]), scientific editor ANGE TOUSSAINT ([id number]) on 08/16/2020 2:26:53 PM Referred By: CARLI Confirmed By:DINH VILLEDA MD
--- NOTE | 2020-08-12 12:27 | RAD_ITS ---
STUDY: X-RAY CHEST REASON FOR EXAM: Female, 59 years old. SOB, COUGH TECHNIQUE: Single AP portable view of the chest. COMPARISON: Comparison is made with prior study dated 07/20/2020. FINDINGS: EKG electrodes are seen. Patchy infiltrate in the right lower lobe as well as in the left lower lobe. Blunting of left costophrenic angle. Normal size heart. Normal mediastinum and sven. Normal visualized pulmonary arteries. There is atherosclerotic tortuosity of the aortic arch and descending thoracic aorta. Normal visualized thoracic spine. Normal visualized ribs, clavicles, and shoulders. There is no demonstrated abnormality of the visualized soft tissue structures of the upper abdomen. RAD/Chest 1 View (Portable) IMPRESSION: Bibasilar pulmonary infiltrates with blunting of the left costophrenic angle. Electronically Signed: Presley Charles, at 13:13 EST , Service support ,
--- NOTE | 2020-08-12 12:28 | ED.VIS.GEN ---
History of Present Illness Chief Complaint: Shortness of Breath Narrative: Patient was diagnosed with COVID-19 about 5 days ago, she has underlying COPD she is on home oxygen, she has been getting more short of breath recently and was found to be hypoxic on her home O2. She presents to the emergency department via EMS. She tells me she has subjective fevers, she has no urinary symptoms she has no abdominal pain she denies a rash she is not confused. Past Medical History - Allergies and Home Meds Allergies/Adverse Reactions: Allergies Penicillins Allergy (Severe, Verified 08/12/20 12:17) Hives Sulfa (Sulfonamide Antibiotics) Allergy (Intermediate, Verified 08/12/20 12:17) Hives azithromycin Adverse Reaction (Severe, Verified 08/12/20 12:17) Diarrhea codeine Adverse Reaction (Severe, Verified 08/12/20 12:17) Vomiting ondansetron [From Zofran] Adverse Reaction (Severe, Verified 08/12/20 12:17) Nausea ondansetron HCl [From Zofran (as hydrochloride)] Adverse Reaction (Severe, Verified 08/12/20 12:17) Nausea pregabalin [From Lyrica] Adverse Reaction (Severe, Verified 08/12/20 12:17) i can't see propoxyphene napsylate [From Darvocet-N 100] Adverse Reaction (Severe, Verified 08/12/20 12:17) Vomiting Primary Care Physician: Jennifer Coelho GRAVEL MACHINE OPERATOR, GRAVEL MACHINE OPERATOR-C [Primary Care Provider] - Past Medical History: - - Hypertension, COPD, on home oxygen Surgical History: hysterectomy, - - Hemorrhoidectomy, 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 Chi Becerril DO) Mother Ovarian cancer Brother Heart disease Grandmother Heart disease Grandfather Heart disease Family History: Reports: - - mother with ovarian cancer; denies family history of any blood disorders or blood cancers Paternal Family History: Family History (Last Reviewed 07/20/20 @ 22:[address] Chi Becerril DO) Mother Ovarian cancer Brother Heart disease Grandmother Heart disease Grandfather Heart disease Family History: Reports: - Review of Systems All systems negative except as indicated General: Reports: Fever Eyes: Denies: Visual changes - bilaterally Cardiovascular: Denies: Chest pain Respiratory: Reports: Dyspnea, Cough Gastrointestinal: Denies: Abdominal pain Genitourinary: Denies: Dysuria Musculoskeletal: Denies: Myalgias Neurological: Denies: Headache, Weakness Endocrine: Denies: Polyuria, Polydipsia Hematologic: Denies: Easy bruising Physical Exam Vital Signs/Narrative: Vital Signs Temp Pulse Resp BP Pulse Ox 08/12/20 12:09 99.5 F H 113 H 22 H 121/78 H 93 General: - - Patient appears chronically ill. Head: Normocephalic ENT: Moist mucous membranes, Dry mucous membranes Neck: Supple Cardiovascular: Regular rhythm, Tachycardia Respiratory: - - She is tachypneic, she has decreased air movement and scant end expiratory wheezing Abdomen: Soft Back: Nontender, Normal Inspection Extremities: Nontender, No edema Skin: Normal color Neurological: Normal Strength, Normal Sensation Psychological: Normal affect Diagnostic/Tx/Re-eval - Medical Decision Making She is found to have infiltrates on x-ray, I will treat her with antibiotics. She is on home oxygen but this requirement has increased. I will admit to the hospital. ED Disposition - Plan for ED Patient: Disposition: Psychiatric Hospital or Unit Diagnosis: COVID-19, Pneumonia Referrals: Jennifer Coelho NP, GRAVEL MACHINE OPERATOR-C [Primary Care Provider] -
[2020-08-12 12:52] LABS: Absolute Lymphocyte Count 0.51 X10^3/uL (0.83-4.51); Absolute Neutrophil Count 6.6 X10^3/uL (2.0-7.7); Basophil# 0.01 X10^3/uL; Basophil% 0.1 % (0-1); Hematocrit 32.4 % (37-47); Hemoglobin 9.9 g/dL (12.0-15.0); Lymphocyte # 0.51 X10^3/ul (4.0); Lymphocyte % 6.9 % (19-41); Mean Corp Hgb Conc 30.6 g/dL (32-36); Mean Corpuscular Hgb 30.5 pg (27.0-32.0); Mean Corpuscular Volume 99.7 fL (81-99); Monocyte# 0.25 X10^3/uL; Monocyte% 3.4 % (0-10); NRBC Flagged by Analyzer 0 % (0-5); Neutrophil # 6.62 X10^3/uL (2.7-7.7); Neutrophil % 88.9 % (47-70); POSITIVE DIFFERENTIAL YES; Platelet Count 146 K/mm3 (150-450); RBC Distribution Width CV 14.8 % (11.6-14.6); RBC Distribution Width SD 54.4 fl (35.1-43.9); Red Blood Count 3.25 M/mm3 (4.2-5.4); White Blood Count 7.4 K/mm3 (4.4-11.0)
[2020-08-12 13:16] LABS: Lactic Acid 1.9 mmol/L (0.4-1.9)
[2020-08-12 13:17] LABS: Differential Indicated SCAN CRITERIA MET
[2020-08-12 13:18] LABS: Platelet Estimate ADEQUATE (ADEQ); Red Cell Morphology NORM C+C NORMAL (NORM C&C)
[2020-08-12 14:08] LABS: ALB/GLOB Ratio 0.9 RATIO (0.9-2.4); AST(SGOT) 16 U/L (15-37); Alanine Aminotransfer ALT/SGPT 19 U/L (13-56); Albumin, Serum 2.5 g/dL (3.2-5.0); Alkaline Phosphatase 58 U/L (45-117); Anion Gap 5 (5-15); BUN 14 mg/dL (7-18); BUN/Creat Ratio 16.4 RATIO (10-20); Calcium,Total 8.2 mg/dL (8.5-10.1); Chloride 106 mmol/L (98-107); Creatinine, Serum 0.85 mg/dL (0.55-1.02); EST Glomerular Filtration Rate 73 mL/min (>60); Est Glom Filt Rate - Afr Amer 88 mL/min (>60); Estimated Creatinine Clearance 93.84 ml/min; Globulin 2.9 g/dL (2.2-4.2); Glucose 120 mg/dL (74-106); Potassium 3.5 mmol/L (3.5-5.1); Protein, Total 5.4 g/dL (6.4-8.2); Sodium Level 141 mmol/L (136-145)
[2020-08-12] MEDS: dexAMETHasone 10 MG/ML Vial 6 MG IV (15:29)
[2020-08-12 17:31] LABS: Bedside Glucose 142 mg/dL (70-110)
[2020-08-12] MEDS: ALPRAZolam 0.5 MG Tablet PO (17:35)
--- NOTE | 2020-08-12 18:02 | HP.PCM_ITS ---
Problem List (1) Pneumonia Status: Acute (2) COVID-19 Status: Acute (3) Tachycardia Status: Chronic (4) Hypokalemia Status: Chronic (5) Fibromyalgia Status: Chronic (6) Nicotine abuse Status: Chronic (7) Stage 3 severe COPD by GOLD classification Status: Chronic (8) Chronic hypoxemic respiratory failure Status: Chronic (9) Ulcerative colitis Status: Chronic (10) Poor compliance with medication Status: Chronic (11) CML (chronic myelocytic leukemia) Status: Chronic (12) Emphysema of lung Status: Chronic (13) Acute on chronic respiratory failure with hypoxemia Status: Chronic History of Present Illness Date of Admission: 08/12/20 Ms Arndt is a 59 year old F with a PMH of Severe COPD with O2 requirements of 4 L at baseline, CMP, UC, depression, anxiety, chronic prednisone dependence, and GERD who presented to the ED at [facility] on 08/12/2020 after being diagnosed about 4-5 days ago with COVID-19. She has had cough, increased SOB, fevers with a Tmax of 101.6 at home and fatigue. She states that she had worsening hypoxemia at home and that is why she presented to the ED. her VS are stable in the ED but she is on 6 L nasal cannula with and SpO2 of 93-94%. she does not have a white count. Her lactate is WNL and her renal fxn is WNL. CXR showed bibasilar infiltrates. She was started on Decadron 6 mg in the ED and given ABX in the ED. Past Medical History Past Medical History (Chronic Problems): Chronic Problems (Last Reviewed 07/20/20 @ 22:[address] Chi Becerril DO) Acute on chronic respiratory failure with hypoxemia (Chronic) Tachycardia (Chronic) Hypokalemia (Chronic) Fibromyalgia (Chronic) Nicotine abuse (Chronic) Stage 3 severe COPD by GOLD classification (Chronic) Chronic hypoxemic respiratory failure (Chronic) Ulcerative colitis (Chronic) Poor compliance with medication (Chronic) CML (chronic myelocytic leukemia) (Chronic) Emphysema of lung (Chronic) Medical History: Medical History (Last Reviewed 08/12/20 @ 18:[address] Shaila Mims DO) Tachycardia (Chronic) R00.0 Fibromyalgia (Chronic) M79.7 Nicotine abuse (Chronic) Z72.0 Stage 3 severe COPD by GOLD classification (Chronic) J44.9 Chronic hypoxemic respiratory failure (Chronic) J96.11 Ulcerative colitis (Chronic) K51.90 Poor compliance with medication (Chronic) Z91.14 CML (chronic myelocytic leukemia) (Chronic) C92.10 Carpal tunnel syndrome G56.00 Depression F32.9 DREW (generalized anxiety disorder) F41.1 Obesity (BMI 30.0-34.9) E66.9 Allergies Penicillins Allergy (Severe, Verified 08/12/20 12:17) Hives Sulfa (Sulfonamide Antibiotics) Allergy (Intermediate, Verified 08/12/20 12:17) Hives azithromycin Adverse Reaction (Severe, Verified 08/12/20 12:17) Diarrhea codeine Adverse Reaction (Severe, Verified 08/12/20 12:17) Vomiting ondansetron [From Zofran] Adverse Reaction (Severe, Verified 08/12/20 12:17) Nausea ondansetron HCl [From Zofran (as hydrochloride)] Adverse Reaction (Severe, Verified 08/12/20 12:17) Nausea pregabalin [From Lyrica] Adverse Reaction (Severe, Verified 08/12/20 12:17) i can't see propoxyphene napsylate [From Darvocet-N 100] Adverse Reaction (Severe, Verified 08/12/20 12:17) Vomiting Home Medications: Ambulatory Orders Medication Instructions Recorded Albuterol Aerosols [Ventolin 2.5 mg INHALATION Q4H PRN PRN 10/18/18 Aerosols] Budesonide/Formoterol Fumarate 1 puff IH BID 10/18/18 [Symbicort 160-4.5 Mcg Inhaler] Diltiazem CD [Cardizem CD] 240 mg PO DAILY 10/18/18 Sertraline HCl [Zoloft] 50 mg PO DAILY 10/18/18 albuterol sulfate 90 mcg/actuation 2 puff INHALATION Q4H PRN PRN #18 g 01/14/19 aerosol inhaler potassium chloride 20 mEq 20 meq PO BID 04/14/19 tablet,extended release(part/cryst) omeprazole 40 mg capsule,delayed 40 mg PO DAILY 04/15/19 release sertraline 25 mg tablet 25 mg PO DAILY 04/15/19 alprazolam 0.5 mg tablet 0.5 mg PO TID tab 07/15/19 buspirone 10 mg tablet 10 mg PO TID tab 07/15/19 prochlorperazine maleate 10 mg 10 mg PO Q6H PRN 07/15/19 tablet fluticasone propionate 50 2 spray INTRANASAL DAILY #50 mcg 12/31/19 mcg/actuation nasal spray,suspension ipratropium 0.5 mg-albuterol 3 mg 3 ml INHALATION Q6H PRN ml 03/31/20 (2.5 mg base)/3 mL nebulization soln Alendronate Sodium [Fosamax] 70 mg PO SA 07/06/20 Azelastine HCl 1 spray NS BID 07/06/20 Imatinib Mesylate [Gleevec] 400 mg PO DAILY@1600 07/06/20 Loratadine 10 mg PO DAILY 07/06/20 Oxycodone [Oxyir] 10 mg PO Q6H PRN PRN 07/06/20 Acetaminophen [Tylenol Extra 1,000 mg PO DAILY PRN PRN 08/12/20 Strength] Prednisone 10 mg PO DAILY 08/12/20 Surgical History: Surgical History (Last Reviewed 08/12/20 @ 18:[address] 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 Shaila Mims DO) Mother Ovarian cancer Brother Heart disease Grandmother Heart disease Grandfather Heart disease History Items: - - mother with ovarian cancer; denies family history of any blood disorders or blood cancers Paternal Family History: Family History (Last Reviewed 08/12/20 @ 18:[address] Shaila Mims DO) Mother Ovarian cancer Brother Heart disease Grandmother Heart disease Grandfather Heart disease History Items: - Review of Systems Constitutional: Reports: Chills, Fever. Denies: Anorexia, Night Sweats, Malaise, Weakness, Weight Change, Fatigue Eyes: Denies: Blurred vision, Cataracts, Conjunctivae Inflammation, Double vision, Drainage, Eyelid Inflammation, Pain, Redness, Vision Change HEENT: Denies: Difficulty Hearing, Difficulty Swallowing, Dysphasia, Ear Pain, Eye Pain, Hard of Hearing, Head Aches, Hearing Changes, Nasal bleeding, Nasal Congestion, Post Nasal Drip, Sinus Congestion, Sinus Drainage, Sore Throat, Visual Changes Cardiovascular: Denies: Chest Pain, Claudication, Chest Pressure, Chest Tightn ess, Edema, Heaviness, Light Headedness, Orthopnea, Palpitations, Paroxysmal Noc. Dyspnea, Syncope Respiratory: Reports: Cough, Shortness of Breath, Shortness of breath at rest, Shortness of breath upon exertion, Wheezing. Denies: Hemoptysis, Pleuritic Pain, Sputum production Gastrointestinal: Denies: Abdominal Pain, Constipation, Diarrhea, Dyspepsia, Hematemesis, Hematochezia, Nausea, Melena, Vomiting Genitourinary: Denies: Dysuria, Frequency, Hematuria, Hesitancy, Incontinence, Nocturia, Retention, Urgency Musculoskeletal: Reports: Back Pain. Denies: Arm Pain, Hand Pain, Joint Pain, Joint stiffness, Joint swelling, Joint Tenderness, Neck Pain Skin: Denies: Dryness, Jaundice, Lesions, Pruritis, Rash, Skin Changes, Wounds Neurological: Denies: Balance problems, Blurred vision, Double vision, Change in Speech, Slurred speech, Confusion, Difficulty swallowing, Focal weakness, Headaches, Incoordination, Numbness, Tingling, Tremor, Seizures Psychiatric: Denies: Anxiety, Depression Endocrine: Denies: Change in Body Habitus, Heat/ Cold Intolerance, Polydipsia, Polyuria Hematologic/ Lymphatic: Denies: Adenopathy, Anemia, Easy Bruising, Easy Bleeding, Petechiae, Purpura VTE Information - Inpt Only VTE Present on Admission: No VTE Mechan Device Prophylaxis: None VTE Pharm Prophylaxis ordered?: Yes Patient Problems: Active and Suspected Problems (Last Reviewed 07/20/20 @ 22:[address] Chi Becerril, DO) Pneumonia (Acute) COVID-19 (Acute) - Physical Exam Vitals/I&O's: Vital Signs Temp Pulse Resp BP Pulse Ox 98.8 F 91 15 108/78 95 08/12/20 16:21 08/12/20 16:21 08/12/20 16:21 08/12/20 16:21 08/12/20 16:21 Oxygen Flow Rate (L/min) 50 Oxygen Delivery Method Nasal Cannula Weight: 81.4 kg Body Mass Index (BMI) 36.2 Intake and Output for Last 24 Hours 08/10/20 08/11/20 08/12/20 23:59 23:59 23:59 Intake Total 375 / 375 Balance 375 / 375 General: Alert, Oriented x3, Cooperative, No apparent distress, Well developed, Well nourished, - - Obese upper middle aged WF sitting up in bed, appears comfortable on 6 L n/c HEENT: Atraumatic, PERRLA, EOMI, Normocephalic, EAC Clear Oral: Moist Mucosa, No Gingival or Mucosal Lesions/ Ulcerations, - - dentures in place, no thrush, Mallamapti 2 Neck: Supple, Negative Carotid Bruits, Negative Hepatojugular Reflux, No Nodes, No Nuchal Rigidity, Trachea Midline, Thyroid Normal Size and Texture Lungs: Clear to auscultation, No rhonchi, No wheeze, No rales, Diminished - severely Cardiovascular: Regular rate, Regular Rhythm, Normal S1, Normal S2, No rub noted, No Gallop Abdomen: Bowel Sounds Present, Soft, Non Tender, Non-Distended, No Hepato- splenomegaly, Obese, No hernias noted Extremities: No clubbing, No cyanosis, No edema, Capillary Refill Less than 3 Seconds, Peripheral Pulses Normal Skin: No rashes, No breakdown, - - pale Musculoskeletal: No Tenderness to Palpation of Joints or Extremities, No Muscle Wasting Lymphatic: No Cervical, Supraclavicular, or Inguinal Adenopathy Neurological: Cranial nerves II-XII grossly intact, Deep Tendon Reflexes 2+/4 and Symmetrical, Neuro grossly intact, Motor Exam 5/5 strength throughout Psych/Mental Status: Normal Affect, Appropriate Laboratory Results 08/12/20 12:33: WBC 7.4, RBC 3.25 L, Hgb 9.9 L, Hct 32.4 L, MCV 99.7 H, MCH 30.5, MCHC 30.6 L, RDW Std Deviation 54.4 H, RDW Coeff of Noe 14.8 H, Plt Count 146 L, MPV 10.0, Immature Gran % (Auto) 0.700, Neut % (Auto) 88.9 H, Lymph % (Auto) 6.9 L, Esmeralda % (Auto) 3.4, Eos % (Auto) 0.0, Baso % (Auto) 0.1, Absolute Neuts (auto) 6.6, Absolute Lymphs (auto) 0.51 L, Nucleated RBC % 0, Differential Comment , Platelet Estimate ADEQUATE, RBC Morphology NORM C+C 08/12/20 12:33: Sodium Cancelled, Potassium Cancelled, Chloride Cancelled, Carbon Dioxide Cancelled, Anion Gap Cancelled, BUN Cancelled, Creatinine Cancelled, Estim Creat Clear Calc Cancelled, Est GFR (MDRD) Af Amer Cancelled, Est GFR (MDRD) Non-Af Cancelled, BUN/Creatinine Ratio Cancelled, Glucose Cancelled, Calcium Cancelled, Total Bilirubin Cancelled, AST Cancelled, ALT Cancelled, Alkaline Phosphatase Cancelled, Total Protein Cancelled, Albumin Cancelled, Globulin Cancelled, Albumin/Globulin Ratio Cancelled 08/12/20 12:33: Lactic Acid 1.9 08/12/20 13:38: Sodium 141, Potassium 3.5, Chloride 106, Carbon Dioxide 30.0, Anion Gap 5, BUN 14, Creatinine 0.85, Estim Creat Clear Calc 93.84, Est GFR (MDRD) Af Amer 88, Est GFR (MDRD) Non-Af 73, BUN/Creatinine Ratio 16.4, Glucose 120 H, Calcium 8.2 L, Total Bilirubin 0.30, AST 16, ALT 19, Alkaline Phosphatase 58, Total Protein 5.4 L, Albumin 2.5 L, Globulin 2.9, Albumin/Globulin Ratio 0.9 08/12/20 17:14: POC Glucose 142 H 08/12/20 17:28: Blood Type Pending, Antibody Screen Pending 08/12/20 17:28: Fibrinogen Pending, D-Dimer Quant (PE/DVT) Pending 08/12/20 17:28: Procalcitonin Pending 08/12/20 17:28: CK Isoenzymes Pending, CK-MM (CK-3) Pending, CK-MB (CK-2) Pending, CK-BB (CK-1) Pending Current Medications Acetaminophen (Acetaminophen 325 Mg Tablet) 650 mg PO Q6H PRN PRN PRN Reason: Pain Score 1-10/Temp > 100.7 F Al Hydroxide/Mg Hydroxide (Mag Hydrox/Al Hydrox/Simeth 30 Ml Udc) 30 ml PO Q6H PRN PRN PRN Reason: Gastric Burning Albuterol Sulfate (Albuterol 2.5 Mg/3 Ml Vial.Neb.) 2.5 mg INHALATION Q2H PRN PRN PRN Reason: Shortness of Breath/Wheezing Albuterol/Ipratropium (Ipratropium/Albuterol Sulfate 3 Ml Ampul.Neb) 3 ml INHALATION Q6H PRN PRN Reason: wheezing Alendronate Sodium (Alendronate Sodium 70 Mg Tablet) 70 mg PO Sa@0600 [facility] Alprazolam (Alprazolam 0.5 Mg Tablet) 0.5 mg PO TID [facility] Last Admin: 08/12/20 17:35 Dose: 0.5 mg Documented by: Azelastine HCl (Azelastine Hcl Nasal.Sry) 1 spray NASAL BID [facility] Buspirone HCl (Buspirone 5 Mg Tablet) 10 mg PO TID [facility] Dexamethasone (Dexamethasone 4 Mg Tablet) 6 mg PO DAILY@0800 [facility] Stop: 08/23/20 08:01 Diltiazem HCl (Diltiazem Cd 240 Mg Capsule) 240 mg PO DAILY [facility] Fluticasone Propionate (Fluticasone 0.05% 1 [place] Nasal.Sry) 2 spray NASAL DAILY [facility] Imatinib Mesylate (Imatinib Mesylate 400 Mg Tablet) 400 mg PO DAILY@1600 [facility] Insulin Human Lispro (Insulin Lispro 100 Unit/Ml Insuln.Pen) 0 unit SC TIDAC [facility]; Protocol Last Admin: 08/12/20 17:18 Dose: Not Given Documented by: Loratadine (Loratadine 10 Mg Tablet) 10 mg PO DAILY [facility] Melatonin (Melatonin 3 Mg Tablet) 3 mg PO QHS PRN PRN PRN Reason: INSOMNIA Oxycodone HCl (Oxycodone 5 Mg Tablet) 10 mg PO Q6H PRN PRN PRN Reason: Pain Score 1-10 Pantoprazole Sodium (Pantoprazole Sodium 40 Mg Tablet) 40 mg PO DAILY [facility] Prochlorperazine Maleate (Prochlorperazine 5 Mg Tablet) 10 mg PO Q6H PRN PRN Reason: NAUSEA Senna/Docusate Sodium (Senna/Docusate Sodium 1 Tablet) 2 tablet PO BID PRN PRN PRN Reason: Constipation Sertraline HCl (Sertraline 50 Mg Tablet) 25 mg PO DAILY JARAD Sertraline HCl (Sertraline 50 Mg Tablet) 50 mg PO DAILY [facility]AR[facility] Sodium Chloride (0.9% Saline Lock 10 Ml Syringe) 10 - 40 ml IV UD PRN PRN Reason: SALINE FLUSH Throat Lozenges (Benzocaine/Menthol 1 Lozenge) 1 lozenge MUCOUS MEM Q2H PRN PRN PRN Reason: SORE THROAT Assessment/Plan All Active Problems (Last Reviewed 07/20/20 @ 22:[address] Chi Becerril, DO) Pneumonia (Acute) COVID-19 (Acute) Acute on Chronic Hypoxic Respiratory Failure 2/2 COVID-19 PNA -doubt bacterial infection so hold ABX -start decadron -d/w Dr Gomes and will start convalescent plasma and remdesivir -will need daily LFT -nebs jarad and prn -supplemental O2 and wean as able (baseline 4 L) -pt is extremely high risk for further respiratory decompensation -start Eliquis 5 mg BID -check COVID labs -consult Pulm and ID Anemia/Thrombocytopenia -suspect related to COVID -monitor lab daily -no s/o bleeding but pt does have UC CLL -continue Gleevac UC -continue steroids (decadron for now) -monitor -no s/o bleeding COPD Stage 3 -see above -has stopped smoking HTN -continue Diltiazem Chronic Prednisone use -continue Bisphosphonate GERD -PPI Obesity -recommend wgt loss Depression/Anxiety -continue home meds DVT prophylaxis -Eliquis BID 5 mg Code Status -Pt very clear that she wants to be DNR CCA with no ETT and states that her family is aware of her wishes -order placed -pt is aware that she is at extremely high risk for further respiratory decompensation Inpatient E&M: 94236 Init Hosp L3
[2020-08-12 18:08] LABS: Fibrinogen 453 mg/dl (203-444)
[2020-08-12 18:10] LABS: Procalcitonin 0.06 ng/mL (0.00-0.09)
[2020-08-12 18:19] LABS: D-Dimer Quantitative (DVT/PE) 0.96 FEU/ug/m (0.27-0.49)
[2020-08-12] MEDS: Albuterol 2.5 MG/3 ML VIAL.NEB. INHALATION (19:44)
[2020-08-12] MEDS: busPIRone 5 MG Tablet 10 MG PO (21:07)
[2020-08-12] MEDS: APIXABAN 5 MG TABLET PO (21:08)
[2020-08-12] MEDS: oxyCODONE 5 MG Tablet 10 MG PO (21:19)
[2020-08-12 21:30] LABS: Bedside Glucose 151 mg/dL (70-110)
[2020-08-13] VITALS (14 sets, daily range): BP systolic 126–146; BP diastolic 72–97; PULSE 85–103; RESP 17–20; TEMP 36.1–37.3; O2SAT 92–96
[2020-08-13 05:43] LABS: Absolute Lymphocyte Count 0.61 X10^3/uL (0.83-4.51); Absolute Neutrophil Count 3.6 X10^3/uL (2.0-7.7); Basophil# 0.02 X10^3/uL; Basophil% 0.4 % (0-1); Hematocrit 32.6 % (37-47); Lymphocyte # 0.61 X10^3/ul (4.0); Lymphocyte % 13.4 % (19-41); Mean Corp Hgb Conc 30.7 g/dL (32-36); Mean Corpuscular Hgb 31.1 pg (27.0-32.0); Mean Corpuscular Volume 101.2 fL (81-99); Mean Platelet Vol. 9.8 fl (6.2-12.0); Monocyte# 0.22 X10^3/uL; Monocyte% 4.8 % (0-10); NRBC Flagged by Analyzer 0 % (0-5); Neutrophil # 3.62 X10^3/uL (2.7-7.7); Neutrophil % 79.4 % (47-70); Platelet Count 156 K/mm3 (150-450); RBC Distribution Width CV 14.6 % (11.6-14.6); RBC Distribution Width SD 54.5 fl (35.1-43.9); Red Blood Count 3.22 M/mm3 (4.2-5.4); White Blood Count 4.6 K/mm3 (4.4-11.0)
[2020-08-13 06:01] LABS: ALB/GLOB Ratio 0.8 RATIO (0.9-2.4); AST(SGOT) 19 U/L (15-37); Alanine Aminotransfer ALT/SGPT 20 U/L (13-56); Albumin, Serum 2.5 g/dL (3.2-5.0); Alkaline Phosphatase 58 U/L (45-117); Anion Gap 5 (5-15); BUN 16 mg/dL (7-18); BUN/Creat Ratio 20.2 RATIO (10-20); Chloride 103 mmol/L (98-107); Creatinine, Serum 0.79 mg/dL (0.55-1.02); EST Glomerular Filtration Rate 79 mL/min (>60); Est Glom Filt Rate - Afr Amer 96 mL/min (>60); Estimated Creatinine Clearance 100.96 ml/min; Globulin 3.2 g/dL (2.2-4.2); Glucose 105 mg/dL (74-106); Magnesium 1.8 mg/dL (1.6-2.6); Phosphorus 3.4 mg/dL (2.5-4.9); Potassium 4.2 mmol/L (3.5-5.1); Protein, Total 5.7 g/dL (6.4-8.2); Sodium Level 139 mmol/L (136-145)
[2020-08-13] MEDS: ALPRAZolam 0.5 MG Tablet PO ×3 (06:20→21:32)
[2020-08-13] MEDS: busPIRone 5 MG Tablet 10 MG PO ×3 (06:20→21:32)
[2020-08-13 06:45] LABS: Bedside Glucose 116 mg/dL (70-110)
--- NOTE | 2020-08-13 07:14 | CON.PCM_ITS ---
Reason for Consult Date of Consultation: 08/13/20 Reason for Consultation: Acute on chronic hypoxemic respiratory failure secondary to COVID-19 pneumonia History of Present Illness: The patient is a 59-year-old female, with a history as outlined below, who presented to the emergency department on August 12 with worsening shortness of breath, hypoxemia and subjective fevers. The patient was last admitted to the hospital in mid July 2020 with an acute COPD exacerbation. Her Covid test at that time was negative. The patient reported that on the morning of August 06 she woke up with a fever and felt more short of breath. She went to a local emergency department in [place] for evaluation. The patient subsequently tested positive for coronavirus at that time. She was sent home with instructions to quarantine. However, the patient's symptoms have continued to progress. In total, the patient has been symptomatic now for approximately 1 week. The patient has a known history of chronic hypoxemic respiratory failure with a baseline 4 L/min requirement along with severe COPD and history of CML. On presentation to the emergency department, the patient was noted to be afebrile and hemodynamically stable. Laboratory evaluation revealed a normal white blood cell count. D-dimer was elevated to 0.96. Chemistry profile was unremarkable. Lactate was within normal limits. Liver function profile was within normal limits. Procalcitonin was not elevated. Chest x-ray revealed bibasilar infiltrates. The patient was placed on scheduled bronchodilator therapy and administered Decadron. She was subsequently admitted to the coronavirus cohort unit for further management. This morning, the patient made it very clear to me that if her respiratory status were to worsen she would not want to be intubated. Past Medical History Past Medical History (Chronic Problems): Chronic Problems (Last Reviewed 08/12/20 @ 18:[address] Shaila Mims DO) Acute on chronic respiratory failure with hypoxemia (Chronic) Tachycardia (Chronic) Hypokalemia (Chronic) Fibromyalgia (Chronic) Nicotine abuse (Chronic) Stage 3 severe COPD by GOLD classification (Chronic) Chronic hypoxemic respiratory failure (Chronic) Ulcerative colitis (Chronic) Poor compliance with medication (Chronic) CML (chronic myelocytic leukemia) (Chronic) Emphysema of lung (Chronic) Medical History: Medical History (Last Reviewed 08/12/20 @ 18:[address] Shaila Mims DO) Tachycardia (Chronic) R00.0 Fibromyalgia (Chronic) M79.7 Nicotine abuse (Chronic) Z72.0 Stage 3 severe COPD by GOLD classification (Chronic) J44.9 Chronic hypoxemic respiratory failure (Chronic) J96.11 Ulcerative colitis (Chronic) K51.90 Poor compliance with medication (Chronic) Z91.14 CML (chronic myelocytic leukemia) (Chronic) C92.10 Carpal tunnel syndrome G56.00 Depression F32.9 DREW (generalized anxiety disorder) F41.1 Obesity (BMI 30.0-34.9) E66.9 Allergies Penicillins Allergy (Severe, Verified 08/12/20 12:17) Hives Sulfa (Sulfonamide Antibiotics) Allergy (Intermediate, Verified 08/12/20 12:17) Hives azithromycin Adverse Reaction (Severe, Verified 08/12/20 12:17) Diarrhea codeine Adverse Reaction (Severe, Verified 08/12/20 12:17) Vomiting ondansetron [From Zofran] Adverse Reaction (Severe, Verified 08/12/20 12:17) Nausea ondansetron HCl [From Zofran (as hydrochloride)] Adverse Reaction (Severe, Verified 08/12/20 12:17) Nausea pregabalin [From Lyrica] Adverse Reaction (Severe, Verified 08/12/20 12:17) i can't see propoxyphene napsylate [From Darvocet-N 100] Adverse Reaction (Severe, Verified 08/12/20 12:17) Vomiting Home Medications: Ambulatory Orders Medication Instructions Recorded Albuterol Aerosols [Ventolin 2.5 mg INHALATION Q4H PRN PRN 10/18/18 Aerosols] Budesonide/Formoterol Fumarate 1 puff IH BID 10/18/18 [Symbicort 160-4.5 Mcg Inhaler] Diltiazem CD [Cardizem CD] 240 mg PO DAILY 10/18/18 Sertraline HCl [Zoloft] 50 mg PO DAILY 10/18/18 albuterol sulfate 90 mcg/actuation 2 puff INHALATION Q4H PRN PRN #18 g 01/14/19 aerosol inhaler potassium chloride 20 mEq 20 meq PO BID 04/14/19 tablet,extended release(part/cryst) omeprazole 40 mg capsule,delayed 40 mg PO DAILY 04/15/19 release sertraline 25 mg tablet 25 mg PO DAILY 04/15/19 alprazolam 0.5 mg tablet 0.5 mg PO TID tab 07/15/19 buspirone 10 mg tablet 10 mg PO TID tab 07/15/19 prochlorperazine maleate 10 mg 10 mg PO Q6H PRN 07/15/19 tablet fluticasone propionate 50 2 spray INTRANASAL DAILY #50 mcg 12/31/19 mcg/actuation nasal spray,suspension ipratropium 0.5 mg-albuterol 3 mg 3 ml INHALATION Q6H PRN ml 03/31/20 (2.5 mg base)/3 mL nebulization soln Alendronate Sodium [Fosamax] 70 mg PO SA 07/06/20 Azelastine HCl 1 spray NS BID 07/06/20 Imatinib Mesylate [Gleevec] 400 mg PO DAILY@1600 07/06/20 Loratadine 10 mg PO DAILY 07/06/20 Oxycodone [Oxyir] 10 mg PO Q6H PRN PRN 07/06/20 Acetaminophen [Tylenol Extra 1,000 mg PO DAILY PRN PRN 08/12/20 Strength] Prednisone 10 mg PO DAILY 08/12/20 Surgical History: Surgical History (Last Reviewed 08/12/20 @ 18:[address] 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 Shaila Mims DO) Mother Ovarian cancer Brother Heart disease Grandmother Heart disease Grandfather Heart disease History Items: - - mother with ovarian cancer; denies family history of any blood disorders or blood cancers Paternal Family History: Family History (Last Reviewed 08/12/20 @ 18:[address] Shaila Mims DO) Mother Ovarian cancer Brother Heart disease Grandmother Heart disease Grandfather Heart disease History Items: - Review of Systems Constitutional: Reports: Chills, Fever, Malaise, Fatigue Eyes: Reports: Double vision. Denies: Blurred vision HEENT: Denies: Head Aches, Sinus Congestion, Sinus Drainage Cardiovascular: Denies: Chest Pain, Palpitations Respiratory: Reports: Cough, Shortness of Breath Gastrointestinal: Denies: Abdominal Pain, Nausea, Vomiting Genitourinary: Denies: Dysuria Musculoskeletal: Denies: Joint Pain, Joint Tenderness Skin: Denies: Rash, Wounds Neurological: Denies: Numbness, Tingling, Focal weakness Psychiatric: Reports: Anxiety Hematologic/ Lymphatic: Reports: Anemia Patient Problems: Active and Suspected Problems (Last Reviewed 08/12/20 @ 18:[address] Shaila Mims DO) Pneumonia (Acute) COVID-19 (Acute) Objective: The patient's most recent lab work, culture data and imaging studies have all been personally reviewed. Coronavirus PCR was positive on August 06. - Physical Exam Vitals/I&O's: Vital Signs Temp Pulse Resp BP Pulse Ox 97.9 F 99 17 146/96 H 94 08/13/20 06:19 08/13/20 06:19 08/13/20 06:19 08/13/20 06:19 08/13/20 06:19 Oxygen Flow Rate (L/min) 5 Oxygen Delivery Method Nasal Cannula Weight: 162 lb 14.746 oz Body Mass Index (BMI) 36.2 Intake and Output for Last 24 Hours 08/11/20 08/12/20 08/13/20 23:59 23:59 23:59 Intake Total 375 / 615 360 / 360 Balance 375 / 615 360 / 360 General: Alert, Cooperative, No apparent distress HEENT: Atraumatic, PERRLA, Normocephalic Oral: No Gingival or Mucosal Lesions/ Ulcerations Neck: Supple, No Nodes, Trachea Midline Lungs: - - Globally diminished air movement bilaterally. Cardiovascular: Regular rate, Regular Rhythm Abdomen: Bowel Sounds Present, Soft, Non Tender, Obese Extremities: No clubbing, No cyanosis, No edema Skin: No breakdown Musculoskeletal: No Tenderness to Palpation of Joints or Extremities Lymphatic: No Cervical, Supraclavicular, or Inguinal Adenopathy Neurological: Cranial nerves II-XII grossly intact, Neuro grossly intact Psych/Mental Status: Anxious Labs (Last 48 Hours) 08/12/20 08/12/20 08/12/20 12:33 12:33 12:33 WBC 7.4 RBC 3.25 L Hgb 9.9 L Hct 32.4 L MCV 99.7 H MCH 30.5 MCHC 30.6 L RDW Std Deviation 54.4 H RDW Coeff of Noe 14.8 H Plt Count 146 L MPV 10.0 Immature Gran % (Auto) 0.700 Neut % (Auto) 88.9 H Lymph % (Auto) 6.9 L [place] % (Auto) 3.4 Eos % (Auto) 0.0 Baso % (Auto) 0.1 Absolute Neuts (auto) 6.6 Absolute Lymphs (auto) 0.51 L Nucleated RBC % 0 Differential Comment Platelet Estimate ADEQUATE RBC Morphology NORM C+C Fibrinogen D-Dimer Quant (PE/DVT) Sodium Cancelled Potassium Cancelled Chloride Cancelled Carbon Dioxide Cancelled Anion Gap Cancelled BUN Cancelled Creatinine Cancelled Estim Creat Clear Calc Cancelled Est GFR (MDRD) Af Amer Cancelled Est GFR (MDRD) Non-Af Cancelled BUN/Creatinine Ratio Cancelled Glucose Cancelled Lactic Acid 1.9 Calcium Cancelled Phosphorus Magnesium Total Bilirubin Cancelled AST Cancelled ALT Cancelled Alkaline Phosphatase Cancelled CK Isoenzymes CK-MM (CK-3) CK-MB (CK-2) CK-BB (CK-1) Total Protein Cancelled Albumin Cancelled Globulin Cancelled Albumin/Globulin Ratio Cancelled Procalcitonin POC Glucose Blood Type Antibody Screen 08/12/20 08/12/20 08/12/20 13:38 17:14 17:28 WBC RBC Hgb Hct MCV MCH MCHC RDW Std Deviation RDW Coeff of Noe Plt Count MPV Immature Gran % (Auto) Neut % (Auto) Lymph % (Auto) [place] % (Auto) Eos % (Auto) Baso % (Auto) Absolute Neuts (auto) Absolute Lymphs (auto) Nucleated RBC % Differential Comment Platelet Estimate RBC Morphology Fibrinogen D-Dimer Quant (PE/DVT) Sodium 141 Potassium 3.5 Chloride 106 Carbon Dioxide 30.0 Anion Gap 5 BUN 14 Creatinine 0.85 Estim Creat Clear Calc 93.84 Est GFR (MDRD) Af Amer 88 Est GFR (MDRD) Non-Af 73 BUN/Creatinine Ratio 16.4 Glucose 120 H Lactic Acid Calcium 8.2 L Phosphorus Magnesium Total Bilirubin 0.30 AST 16 ALT 19 Alkaline Phosphatase 58 CK Isoenzymes CK-MM (CK-3) CK-MB (CK-2) CK-BB (CK-1) Total Protein 5.4 L Albumin 2.5 L Globulin 2.9 Albumin/Globulin Ratio 0.9 Procalcitonin POC Glucose 142 H Blood Type A POSITIVE Antibody Screen NEGATIVE 08/12/20 08/12/20 08/12/20 17:28 17:28 17:28 WBC RBC Hgb Hct MCV MCH MCHC RDW Std Deviation RDW Coeff of Noe Plt Count MPV Immature Gran % (Auto) Neut % (Auto) Lymph % (Auto) [place] % (Auto) Eos % (Auto) Baso % (Auto) Absolute Neuts (auto) Absolute Lymphs (auto) Nucleated RBC % Differential Comment Platelet Estimate RBC Morphology Fibrinogen 453 H D-Dimer Quant (PE/DVT) 0.96 H* Sodium Potassium Chloride Carbon Dioxide Anion Gap BUN Creatinine Estim Creat Clear Calc Est GFR (MDRD) Af Amer Est GFR (MDRD) Non-Af BUN/Creatinine Ratio Glucose Lactic Acid Calcium Phosphorus Magnesium Total Bilirubin AST ALT Alkaline Phosphatase CK Isoenzymes Pending CK-MM (CK-3) Pending CK-MB (CK-2) Pending CK-BB (CK-1) Pending Total Protein Albumin Globulin Albumin/Globulin Ratio Procalcitonin 0.06 POC Glucose Blood Type Antibody Screen 08/12/20 08/13/20 08/13/20 21:06 04:35 04:35 WBC 4.6 RBC 3.22 L Hgb 10.0 L Hct 32.6 L MCV 101.2 H MCH 31.1 MCHC 30.7 L RDW Std Deviation 54.5 H RDW Coeff of Noe 14.6 Plt Count 156 MPV 9.8 Immature Gran % (Auto) 2.000 H Neut % (Auto) 79.4 H Lymph % (Auto) 13.4 L [place] % (Auto) 4.8 Eos % (Auto) 0.0 Baso % (Auto) 0.4 Absolute Neuts (auto) 3.6 Absolute Lymphs (auto) 0.61 L Nucleated RBC % 0 Differential Comment Platelet Estimate RBC Morphology Fibrinogen D-Dimer Quant (PE/DVT) Sodium 139 Potassium 4.2 Chloride 103 Carbon Dioxide 31.0 Anion Gap 5 BUN 16 Creatinine 0.79 Estim Creat Clear Calc 100.96 Est GFR (MDRD) Af Amer 96 Est GFR (MDRD) Non-Af 79 BUN/Creatinine Ratio 20.2 H Glucose 105 Lactic Acid Calcium 8.0 L Phosphorus 3.4 Magnesium 1.8 Total Bilirubin 0.30 AST 19 ALT 20 Alkaline Phosphatase 58 CK Isoenzymes CK-MM (CK-3) CK-MB (CK-2) CK-BB (CK-1) Total Protein 5.7 L Albumin 2.5 L Globulin 3.2 Albumin/Globulin Ratio 0.8 L Procalcitonin POC Glucose 151 H Blood Type Antibody Screen 08/13/20 06:22 WBC RBC Hgb Hct MCV MCH MCHC RDW Std Deviation RDW Coeff of Noe Plt Count MPV Immature Gran % (Auto) Neut % (Auto) Lymph % (Auto) [place] % (Auto) Eos % (Auto) Baso % (Auto) Absolute Neuts (auto) Absolute Lymphs (auto) Nucleated RBC % Differential Comment Platelet Estimate RBC Morphology Fibrinogen D-Dimer Quant (PE/DVT) Sodium Potassium Chloride Carbon Dioxide Anion Gap BUN Creatinine Estim Creat Clear Calc Est GFR (MDRD) Af Amer Est GFR (MDRD) Non-Af BUN/Creatinine Ratio Glucose Lactic Acid Calcium Phosphorus Magnesium Total Bilirubin AST ALT Alkaline Phosphatase CK Isoenzymes CK-MM (CK-3) CK-MB (CK-2) CK-BB (CK-1) Total Protein Albumin Globulin Albumin/Globulin Ratio Procalcitonin POC Glucose 116 H Blood Type Antibody Screen Clinical Impression(s) from Imaging Studies Chest X-Ray 08/12/20 12:27 IMPRESSION: Bibasilar pulmonary infiltrates with blunting of the left costophrenic angle. Electronically Signed: Presley Charles, at 13:13 EST , Service support , Current Medications Acetaminophen (Acetaminophen 325 Mg Tablet) 650 mg PO Q6H PRN PRN PRN Reason: Pain Score 1-10/Temp > 100.7 F Al Hydroxide/Mg Hydroxide (Mag Hydrox/Al Hydrox/Simeth 30 Ml Udc) 30 ml PO Q6H PRN PRN PRN Reason: Gastric Burning Albuterol Sulfate (Albuterol 2.5 Mg/3 Ml Vial.Neb.) 2.5 mg INHALATION Q2H PRN PRN PRN Reason: Shortness of Breath/Wheezing Last Admin: 08/12/20 19:44 Dose: 2.5 mg Documented by: Albuterol/Ipratropium (Ipratropium/Albuterol Sulfate 3 Ml Ampul.Neb) 3 ml INHALATION Q6H PRN PRN Reason: wheezing Alendronate Sodium (Alendronate Sodium 70 Mg Tablet) 70 mg PO Sa@0600 [facility] Alprazolam (Alprazolam 0.5 Mg Tablet) 0.5 mg PO TID [facility] Last Admin: 08/13/20 06:20 Dose: 0.5 mg Documented by: Azelastine HCl (Azelastine Hcl Nasal.Sry) 1 spray NASAL BID [facility] Last Admin: 08/12/20 21:08 Dose: Not Given Documented by: Buspirone HCl (Buspirone 5 Mg Tablet) 10 mg PO TID [facility] Last Admin: 08/13/20 06:20 Dose: 10 mg Documented by: Dexamethasone (Dexamethasone 4 Mg Tablet) 6 mg PO DAILY@0800 [facility] Stop: 08/23/20 08:01 Diltiazem HCl (Diltiazem Cd 240 Mg Capsule) 240 mg PO DAILY [facility] Fluticasone Propionate (Fluticasone 0.05% 1 [place] Nasal.Sry) 2 spray NASAL DAILY [facility] Imatinib Mesylate (Imatinib Mesylate 400 Mg Tablet) 400 mg PO DAILY@1600 [facility] Last Admin: 08/12/20 21:08 Dose: 400 mg Documented by: Insulin Human Lispro (Insulin Lispro 100 Unit/Ml Insuln.Pen) 0 unit SC TIDAC [facility]; Protocol Last Admin: 08/13/20 06:23 Dose: Not Given Documented by: Loratadine (Loratadine 10 Mg Tablet) 10 mg PO DAILY [facility] Melatonin (Melatonin 3 Mg Tablet) 3 mg PO QHS PRN PRN PRN Reason: INSOMNIA Oxycodone HCl (Oxycodone 5 Mg Tablet) 10 mg PO Q6H PRN PRN PRN Reason: Pain Score 1-10 Last Admin: 08/12/20 21:19 Dose: 10 mg Documented by: Pantoprazole Sodium (Pantoprazole Sodium 40 Mg Tablet) 40 mg PO DAILY [facility] Prochlorperazine Maleate (Prochlorperazine 5 Mg Tablet) 10 mg PO Q6H PRN PRN Reason: NAUSEA Senna/Docusate Sodium (Senna/Docusate Sodium 1 Tablet) 2 tablet PO BID PRN PRN PRN Reason: Constipation Sertraline HCl (Sertraline 50 Mg Tablet) 25 mg PO DAILY [facility] Sertraline HCl (Sertraline 50 Mg Tablet) 50 mg PO DAILY GERA Sodium Chloride (0.9% Saline Lock 10 Ml Syringe) 10 - 40 ml IV UD PRN PRN Reason: SALINE FLUSH Throat Lozenges (Benzocaine/Menthol 1 Lozenge) 1 lozenge MUCOUS MEM Q2H PRN PRN PRN Reason: SORE THROAT Assessment/Plan All Active Problems (Last Reviewed 08/12/20 @ 18:[address] Shaila Mims, DO) Pneumonia (Acute) COVID-19 (Acute) RECOMMENDATIONS: 1. Wean supplemental oxygen to maintain saturations at or above 90%. 2. Continue bronchodilator therapy as ordered. 3. Continue Decadron 6 mg daily. 4. Start remdesivir and monitor liver and renal function closely. 5. Start convalescent plasma. IMPRESSIONS: 1. Acute on chronic hypoxemic respiratory failure secondary to COVID-19 pneumonia The patient has advanced age COPD and chronic hypoxemic respiratory failure with a baseline 4 L/min oxygen requirement, along with CML. She has been symptomatic now for approximately 1 week after having tested positive on August 06. The patient has already been started on Decadron, which will be continued. Liver and renal function are within normal limits. Reviewed EUA and risks/benefits of convalescent plasma. Verbal consent was obtained from the patient. The patient will also be started on remdesivir. Continue scheduled bronchodilators as ordered. Wean supplemental oxygen to maintain saturations at or above 90%. 2. History of CML/obesity/depression/anxiety/GERD Complicates care, management, recovery and prognosis. Continue home medications as indicated. UPDATE: I was notified by the nursing staff that the patient is significantly anxious about receiving the convalescent plasma, despite my conversation earlier with her. Therefore, verbal order was given to discontinue convalescent plasma. This note was generated with [employer] dictation software. It may contain incorrect words, spelling, and punctuation that were not noted in checking the note before signing. Inpatient E&M: 46919 Init Hosp L3
--- NOTE | 2020-08-13 08:46 | PCM.PROGNOTE ---
Patient Problems: Active and Suspected Problems (Last Reviewed 08/12/20 @ 18:[address] Shaila Mims, DO) Pneumonia (Acute) COVID-19 (Acute) Subjective: Patient was seen and examined today, she was diagnosed with COVID-19 approximately a week ago, she came in yesterday with increasing shortness of breath. Patient has a history of COPD and is on chronic oxygen at home at 4 L-her oxygen requirement here at this present time is 5 L. Patient does not complain of any fevers or chills at this time and she does not complain of any chest pain. - Physical Exam Vitals/I&O's: Vital Signs Temp Pulse Resp BP Pulse Ox 97.9 F 99 17 146/96 H 94 08/13/20 06:19 08/13/20 07:26 08/13/20 06:19 08/13/20 06:19 08/13/20 07:45 Oxygen Flow Rate (L/min) 5 Oxygen Delivery Method Nasal Cannula Weight: 73.9 kg Body Mass Index (BMI) 36.2 Intake and Output for Last 24 Hours 08/11/20 08/12/20 08/13/20 23:59 23:59 23:59 Intake Total 375 / 615 360 / 360 Balance 375 / 615 360 / 360 General: Alert, Oriented x3, Cooperative, No apparent distress, Well developed, Well nourished HEENT: Atraumatic, PERRLA, EOMI, Normocephalic Oral: Moist Mucosa Neck: Supple, No JVD, Trachea Midline, Thyroid Normal Size and Texture Lungs: Normal air movement, Wheezes - Expiratory wheezes are noted bilaterally Cardiovascular: Regular rate, Regular Rhythm, Normal S1, Normal S2, No murmurs, PMI Normal, No rub noted, No Gallop Abdomen: Bowel Sounds Present, Soft, Non Tender, Non-Distended Extremities: No clubbing, No cyanosis, No edema, Capillary Refill Less than 3 Seconds Skin: No rashes, No breakdown Musculoskeletal: No Tenderness to Palpation of Joints or Extremities Neurological: Cranial nerves II-XII grossly intact, Neuro grossly intact, Sensory exam intact to light touch and pain Psych/Mental Status: Normal Affect, Appropriate, Alert and oriented to time, place, person, mood and affect Laboratory Results 08/12/20 12:33: WBC 7.4, RBC 3.25 L, Hgb 9.9 L, Hct 32.4 L, MCV 99.7 H, MCH 30.5, MCHC 30.6 L, RDW Std Deviation 54.4 H, RDW Coeff of Noe 14.8 H, Plt Count 146 L, MPV 10.0, Immature Gran % (Auto) 0.700, Neut % (Auto) 88.9 H, Lymph % (Auto) 6.9 L, [place] % (Auto) 3.4, Eos % (Auto) 0.0, Baso % (Auto) 0.1, Absolute Neuts (auto) 6.6, Absolute Lymphs (auto) 0.51 L, Nucleated RBC % 0, Differential Comment , Platelet Estimate ADEQUATE, RBC Morphology NORM C+C 08/12/20 12:33: Sodium Cancelled, Potassium Cancelled, Chloride Cancelled, Carbon Dioxide Cancelled, Anion Gap Cancelled, BUN Cancelled, Creatinine Cancelled, Estim Creat Clear Calc Cancelled, Est GFR (MDRD) Af Amer Cancelled, Est GFR (MDRD) Non-Af Cancelled, BUN/Creatinine Ratio Cancelled, Glucose Cancelled, Calcium Cancelled, Total Bilirubin Cancelled, AST Cancelled, ALT Cancelled, Alkaline Phosphatase Cancelled, Total Protein Cancelled, Albumin Cancelled, Globulin Cancelled, Albumin/Globulin Ratio Cancelled 08/12/20 12:33: Lactic Acid 1.9 08/12/20 13:38: Sodium 141, Potassium 3.5, Chloride 106, Carbon Dioxide 30.0, Anion Gap 5, BUN 14, Creatinine 0.85, Estim Creat Clear Calc 93.84, Est GFR (MDRD) Af Amer 88, Est GFR (MDRD) Non-Af 73, BUN/Creatinine Ratio 16.4, Glucose 120 H, Calcium 8.2 L, Total Bilirubin 0.30, AST 16, ALT 19, Alkaline Phosphatase 58, Total Protein 5.4 L, Albumin 2.5 L, Globulin 2.9, Albumin/Globulin Ratio 0.9 08/12/20 17:14: POC Glucose 142 H 08/12/20 17:28: Blood Type A POSITIVE, Antibody Screen NEGATIVE 08/12/20 17:28: Fibrinogen 453 H, D-Dimer Quant (PE/DVT) 0.96 H* 08/12/20 17:28: Procalcitonin 0.06 08/12/20 17:28: CK Isoenzymes Pending, CK-MM (CK-3) Pending, CK-MB (CK-2) Pending, CK-BB (CK-1) Pending 08/12/20 21:06: POC Glucose 151 H 08/13/20 04:35: WBC 4.6, RBC 3.22 L, Hgb 10.0 L, Hct 32.6 L, MCV 101.2 H, MCH 31.1, MCHC 30.7 L, RDW Std Deviation 54.5 H, RDW Coeff of Noe 14.6, Plt Count 156, MPV 9.8, Immature Gran % (Auto) 2.000 H, Neut % (Auto) 79.4 H, Lymph % (Auto) 13.4 L, [place] % (Auto) 4.8, Eos % (Auto) 0.0, Baso % (Auto) 0.4, Absolute Neuts (auto) 3.6, Absolute Lymphs (auto) 0.61 L, Nucleated RBC % 0 08/13/20 04:35: Sodium 139, Potassium 4.2, Chloride 103, Carbon Dioxide 31.0, Anion Gap 5, BUN 16, Creatinine 0.79, Estim Creat Clear Calc 100.96, Est GFR (MDRD) Af Amer 96, Est GFR (MDRD) Non-Af 79, BUN/Creatinine Ratio 20.2 H, Glucose 105, Calcium 8.0 L, Phosphorus 3.4, Magnesium 1.8, Total Bilirubin 0.30, AST 19, ALT 20, Alkaline Phosphatase 58, Total Protein 5.7 L, Albumin 2.5 L, Globulin 3.2, Albumin/Globulin Ratio 0.8 L 08/13/20 06:22: POC Glucose 116 H Current Medications Acetaminophen (Acetaminophen 325 Mg Tablet) 650 mg PO Q6H PRN PRN PRN Reason: Pain Score 1-10/Temp > 100.7 F Al Hydroxide/Mg Hydroxide (Mag Hydrox/Al Hydrox/Simeth 30 Ml Udc) 30 ml PO Q6H PRN PRN PRN Reason: Gastric Burning Albuterol Sulfate (Albuterol 2.5 Mg/3 Ml Vial.Neb.) 2.5 mg INHALATION Q2H PRN PRN PRN Reason: Shortness of Breath/Wheezing Last Admin: 08/12/20 19:44 Dose: 2.5 mg Documented by: Albuterol/Ipratropium (Ipratropium/Albuterol Sulfate 3 Ml Ampul.Neb) 3 ml INHALATION Q6H PRN PRN Reason: wheezing Alendronate Sodium (Alendronate Sodium 70 Mg Tablet) 70 mg PO Sa@0600 [facility] Alprazolam (Alprazolam 0.5 Mg Tablet) 0.5 mg PO TID [facility] Last Admin: 08/13/20 06:20 Dose: 0.5 mg Documented by: Azelastine HCl (Azelastine Hcl Nasal.Sry) 1 spray NASAL BID [facility] Last Admin: 08/12/20 21:08 Dose: Not Given Documented by: Buspirone HCl (Buspirone 5 Mg Tablet) 10 mg PO TID [facility] Last Admin: 08/13/20 06:20 Dose: 10 mg Documented by: Dexamethasone (Dexamethasone 4 Mg Tablet) 6 mg PO DAILY@0800 [facility] Stop: 08/23/20 08:01 Diltiazem HCl (Diltiazem Cd 240 Mg Capsule) 240 mg PO DAILY [facility] Enoxaparin Sodium (Enoxaparin 40 Mg/0.4 Ml Syringe) 40 mg SC DAILY@0600 [facility] Fluticasone Propionate (Fluticasone 0.05% 1 [place] Nasal.Sry) 2 spray NASAL DAILY [facility] Remdesivir 200 mg/ Sodium (Chloride) 250 mls @ 125 mls/hr IV X1 ONE; Protocol Stop: 08/13/20 11:59 Remdesivir 100 mg/ Sodium (Chloride) 250 mls @ 125 mls/hr IV DAILY [facility]; Protocol Stop: 08/17/20 11:59 Imatinib Mesylate (Imatinib Mesylate 400 Mg Tablet) 400 mg PO DAILY@1600 [facility] Last Admin: 08/12/20 21:08 Dose: 400 mg Documented by: Insulin Human Lispro (Insulin Lispro 100 Unit/Ml Insuln.Pen) 0 unit SC TIDAC [facility]; Protocol Last Admin: 08/13/20 06:23 Dose: Not Given Documented by: Loratadine (Loratadine 10 Mg Tablet) 10 mg PO DAILY [facility] Melatonin (Melatonin 3 Mg Tablet) 3 mg PO QHS PRN PRN PRN Reason: INSOMNIA Oxycodone HCl (Oxycodone 5 Mg Tablet) 10 mg PO Q6H PRN PRN PRN Reason: Pain Score 1-10 Last Admin: 08/12/20 21:19 Dose: 10 mg Documented by: Pantoprazole Sodium (Pantoprazole Sodium 40 Mg Tablet) 40 mg PO DAILY [facility] Prochlorperazine Maleate (Prochlorperazine 5 Mg Tablet) 10 mg PO Q6H PRN PRN Reason: NAUSEA Senna/Docusate Sodium (Senna/Docusate Sodium 1 Tablet) 2 tablet PO BID PRN PRN PRN Reason: Constipation Sertraline HCl (Sertraline 50 Mg Tablet) 25 mg PO DAILY [facility] Sertraline HCl (Sertraline 50 Mg Tablet) 50 mg PO DAILY [facility] Sodium Chloride (0.9% Saline Lock 10 Ml Syringe) 10 - 40 ml IV UD PRN PRN Reason: SALINE FLUSH Throat Lozenges (Benzocaine/Menthol 1 Lozenge) 1 lozenge MUCOUS MEM Q2H PRN PRN PRN Reason: SORE THROAT Medical Necessity - Tobacco Use Smoking Status: Former smoker Tobacco Use: Cigarettes Assessment/Plan All Active Problems (Last Reviewed 08/12/20 @ 18:[address] Shaila Mims, DO) Pneumonia (Acute) COVID-19 (Acute) #1 COVID-19 pneumonia-continue treatment per infectious diseases and pulmonary medicine #2 hypoxic respiratory failure-acute on chronic-patient's oxygen requirement has increased from her home oxygen requirement, pulse ox will be monitored #3 chronic obstructive pulmonary disease #4 chronic myelocytic leukemia #5 chronic depression Inpatient E&M: 41726 Subs Hosp L2
[2020-08-13] MEDS: Sertraline 50 MG Tablet 25 MG PO (09:28)
[2020-08-13] MEDS: Sertraline 50 MG Tablet PO (09:28)
[2020-08-13] MEDS: dilTIAZem CD 240 MG Capsule PO (09:29)
[2020-08-13] MEDS: Pantoprazole Sodium 40 MG Tablet PO (09:29)
[2020-08-13] MEDS: dexAMETHasone 4 MG Tablet 6 MG PO (09:29)
--- NOTE | 2020-08-13 09:33 | NURSING ---
Per patient OK to give information over the phone to Jalyn Quiroz.
--- NOTE | 2020-08-13 09:35 | NURSING ---
Patient severely anxious. Upset about plasma transfusion. Provided active listening and comfort to patient to help her stop crying and to be able to carry on a conversation. Spoke to Dr. Gonzales face to face and notified him about patient anxiety. OK to give buspar now. Also notified Dr. Gomes about anxiety towards plasma transfusion. Lab notified to keep plasma frozen until decision has been made by patient.
[2020-08-13] MEDS: oxyCODONE 5 MG Tablet 10 MG PO ×2 (10:44→21:32)
[2020-08-13] MEDS: 0.9% Saline Lock 10 ML Syringe IV (10:48)
[2020-08-13 10:56] LABS: Bedside Glucose 124 mg/dL (70-110)
--- NOTE | 2020-08-13 11:03 | CASEMGMT ---
Addendum entered by Yumiko Corrales 08/13/20 11:55: Social Work Return call from Donovan Norman CM and updated on pt admission to hospital. Ester requested that pt discharge information be faxed when available. PIPO Garcia Addendum entered by Yumiko Corrales 08/13/20 11:19: Pt also has home oxygen through [employer]. PIPO Garcia Original Note: Social Work SW reviewed pt chart as pt was here recently. Pt has services through [facility] (Ester is CM), [facility] and [facility]. Phone call to pt who confirms these services and Pt lives at home alone and states she plans to return home upon discharge and that she does have transportation home. Pt states that her uncle Joshua Craft is supportive to her and assists as needed. [employer] program provides food assistance and home health aids through [facility]. Phone call to [facility] and [facility] requesting return call. Phone call to [facility] and updated that pt has been admitted. Phone call to [facility] and updated on hospital admission. Plan: Return home alone with continuation of home health services PIPO Garcia
--- NOTE | 2020-08-13 15:50 | PCM.HP.ID ---
Problem List (1) COVID-19 Status: Acute Reason for Consult: covid Consulted by: Dr. Jett History of Present Illness: The patient is a 59 year old F on home 4L O2, presented with over a month of not feeling well. Sx were different over the past week with cough, some green/clear sputum, headache, fever and chills. Came to ED, covid (+), admitted on dex. Feeling a little better today, got started on remdesivir. Full ROS performed and neg except as noted above. - Medical History Past Medical History (Chronic Problems): Chronic Problems (Last Reviewed 08/12/20 @ 18:[address] Shaila Mims, DO) Acute on chronic respiratory failure with hypoxemia (Chronic) Tachycardia (Chronic) Hypokalemia (Chronic) Fibromyalgia (Chronic) Nicotine abuse (Chronic) Stage 3 severe COPD by GOLD classification (Chronic) Chronic hypoxemic respiratory failure (Chronic) Ulcerative colitis (Chronic) Poor compliance with medication (Chronic) CML (chronic myelocytic leukemia) (Chronic) Emphysema of lung (Chronic) Allergies/Adverse Reactions: Allergies Penicillins Allergy (Severe, Verified 08/12/20 12:17) Hives Sulfa (Sulfonamide Antibiotics) Allergy (Intermediate, Verified 08/12/20 12:17) Hives azithromycin Adverse Reaction (Severe, Verified 08/12/20 12:17) Diarrhea codeine Adverse Reaction (Severe, Verified 08/12/20 12:17) Vomiting ondansetron [From Zofran] Adverse Reaction (Severe, Verified 08/12/20 12:17) Nausea ondansetron HCl [From Zofran (as hydrochloride)] Adverse Reaction (Severe, Verified 08/12/20 12:17) Nausea pregabalin [From Lyrica] Adverse Reaction (Severe, Verified 08/12/20 12:17) i can't see propoxyphene napsylate [From Darvocet-N 100] Adverse Reaction (Severe, Verified 08/12/20 12:17) Vomiting Home Medications: Ambulatory Orders Medication Instructions Recorded Albuterol Aerosols [Ventolin 2.5 mg INHALATION Q4H PRN PRN 10/18/18 Aerosols] Budesonide/Formoterol Fumarate 1 puff IH BID 10/18/18 [Symbicort 160-4.5 Mcg Inhaler] Diltiazem CD [Cardizem CD] 240 mg PO DAILY 10/18/18 Sertraline HCl [Zoloft] 50 mg PO DAILY 10/18/18 albuterol sulfate 90 mcg/actuation 2 puff INHALATION Q4H PRN PRN #18 g 01/14/19 aerosol inhaler potassium chloride 20 mEq 20 meq PO BID 04/14/19 tablet,extended release(part/cryst) omeprazole 40 mg capsule,delayed 40 mg PO DAILY 04/15/19 release sertraline 25 mg tablet 25 mg PO DAILY 04/15/19 alprazolam 0.5 mg tablet 0.5 mg PO TID tab 07/15/19 buspirone 10 mg tablet 10 mg PO TID tab 07/15/19 prochlorperazine maleate 10 mg 10 mg PO Q6H PRN 07/15/19 tablet fluticasone propionate 50 2 spray INTRANASAL DAILY #50 mcg 12/31/19 mcg/actuation nasal spray,suspension ipratropium 0.5 mg-albuterol 3 mg 3 ml INHALATION Q6H PRN ml 03/31/20 (2.5 mg base)/3 mL nebulization soln Alendronate Sodium [Fosamax] 70 mg PO SA 07/06/20 Azelastine HCl 1 spray NS BID 07/06/20 Imatinib Mesylate [Gleevec] 400 mg PO DAILY@1600 07/06/20 Loratadine 10 mg PO DAILY 07/06/20 Oxycodone [Oxyir] 10 mg PO Q6H PRN PRN 07/06/20 Acetaminophen [Tylenol Extra 1,000 mg PO DAILY PRN PRN 08/12/20 Strength] Prednisone 10 mg PO DAILY 08/12/20 - Social History SMOKING STATUS:: Former smoker Vital Signs Temp Pulse Resp BP Pulse Ox 97 F L 87 18 130/72 H 95 08/13/20 15:36 08/13/20 15:36 08/13/20 15:36 08/13/20 15:36 08/13/20 15:36 Oxygen Flow Rate (L/min) 5 Oxygen Delivery Method Nasal Cannula Weight: 73.9 kg Body Mass Index (BMI) 36.2 Laboratory Tests Past 24 Hrs 08/12/20 08/12/20 08/12/20 17:28 17:28 17:28 WBC RBC Hgb Hct MCV MCH MCHC RDW Std Deviation RDW Coeff of Noe Plt Count MPV Immature Gran % (Auto) Neut % (Auto) Lymph % (Auto) [place] % (Auto) Eos % (Auto) Baso % (Auto) Absolute Neuts (auto) Absolute Lymphs (auto) Nucleated RBC % Fibrinogen 453 H D-Dimer Quant (PE/DVT) 0.96 H* Sodium Potassium Chloride Carbon Dioxide Anion Gap BUN Creatinine Estim Creat Clear Calc Est GFR (MDRD) Af Amer Est GFR (MDRD) Non-Af BUN/Creatinine Ratio Glucose Calcium Phosphorus Magnesium Total Bilirubin AST ALT Alkaline Phosphatase CK Isoenzymes CK-MM (CK-3) CK-MB (CK-2) CK-BB (CK-1) Total Protein Albumin Globulin Albumin/Globulin Ratio Procalcitonin 0.06 Blood Type A POSITIVE Antibody Screen NEGATIVE 08/12/20 08/13/20 08/13/20 17:28 04:35 04:35 WBC 4.6 RBC 3.22 L Hgb 10.0 L Hct 32.6 L MCV 101.2 H MCH 31.1 MCHC 30.7 L RDW Std Deviation 54.5 H RDW Coeff of Noe 14.6 Plt Count 156 MPV 9.8 Immature Gran % (Auto) 2.000 H Neut % (Auto) 79.4 H Lymph % (Auto) 13.4 L [place] % (Auto) 4.8 Eos % (Auto) 0.0 Baso % (Auto) 0.4 Absolute Neuts (auto) 3.6 Absolute Lymphs (auto) 0.61 L Nucleated RBC % 0 Fibrinogen D-Dimer Quant (PE/DVT) Sodium 139 Potassium 4.2 Chloride 103 Carbon Dioxide 31.0 Anion Gap 5 BUN 16 Creatinine 0.79 Estim Creat Clear Calc 100.96 Est GFR (MDRD) Af Amer 96 Est GFR (MDRD) Non-Af 79 BUN/Creatinine Ratio 20.2 H Glucose 105 Calcium 8.0 L Phosphorus 3.4 Magnesium 1.8 Total Bilirubin 0.30 AST 19 ALT 20 Alkaline Phosphatase 58 CK Isoenzymes Pending CK-MM (CK-3) Pending CK-MB (CK-2) Pending CK-BB (CK-1) Pending Total Protein 5.7 L Albumin 2.5 L Globulin 3.2 Albumin/Globulin Ratio 0.8 L Procalcitonin Blood Type Antibody Screen 08/13/20 04:35 WBC RBC Hgb Hct MCV MCH MCHC RDW Std Deviation RDW Coeff of Noe Plt Count MPV Immature Gran % (Auto) Neut % (Auto) Lymph % (Auto) [place] % (Auto) Eos % (Auto) Baso % (Auto) Absolute Neuts (auto) Absolute Lymphs (auto) Nucleated RBC % Fibrinogen D-Dimer Quant (PE/DVT) Sodium Potassium Chloride Carbon Dioxide Anion Gap BUN Creatinine Estim Creat Clear Calc Est GFR (MDRD) Af Amer Est GFR (MDRD) Non-Af BUN/Creatinine Ratio Glucose Calcium Phosphorus Magnesium Total Bilirubin AST ALT Alkaline Phosphatase Cancelled CK Isoenzymes CK-MM (CK-3) CK-MB (CK-2) CK-BB (CK-1) Total Protein Albumin Globulin Albumin/Globulin Ratio Procalcitonin Blood Type Antibody Screen - Other Studies Radiology: [] reviewed Other Studies: [] Route of nutrition/ use of supplements: [] Nutritional Intake: [] IV Site: [] Jacobson Catheter: [] - Physical Exam General: Alert, Oriented x3, Cooperative HEENT: Atraumatic, PERRLA, EOMI Neck: Supple, No Nodes Lungs: Diminished, Wheezes Cardiovascular: Regular rate, Regular Rhythm Abdomen: Soft, Non Tender, Non-Distended Extremities: No edema Skin: No rashes IV Site: Peripheral, without redness Musculoskeletal: No Tenderness to Palpation of Joints or Extremities Neurological: Cranial nerves II-XII grossly intact - Assessment/Plan Antibiotics: [] Assessment/Plan: [] Active and Suspected Problems (Last Reviewed 08/12/20 @ 18:[address] Shaila Mims, DO) Pneumonia (Acute) COVID-19 (Acute) Covid with acute on chronic hypoxia - on dex, remdesivir. Will order cmp and cbc for next 5 days for monitoring while on remdesivir. Stop the med if GFR less than 30 or ALT over 300. PCT was neg. Will increase lovenox to 40mg bid due to elevated d-dimer. Will follow, thank you
[2020-08-13] MEDS: proCHLORPERazine 5 MG Tablet 10 MG PO (16:32)
[2020-08-13] MEDS: Ipratropium/Albuterol Sulfate 3 ML AMPUL.NEB INHALATION (18:54)
[2020-08-13] MEDS: Enoxaparin 40 MG/0.4 ML Syringe SC (21:32)
[2020-08-14] VITALS (13 sets, daily range): BP systolic 124–145; BP diastolic 75–95; PULSE 77–109; RESP 16–22; TEMP 36.5–37.9; O2SAT 90–95
[2020-08-14] MEDS: ALPRAZolam 0.5 MG Tablet PO ×3 (05:31→20:35)
[2020-08-14] MEDS: busPIRone 5 MG Tablet 10 MG PO ×3 (05:31→20:34)
--- NOTE | 2020-08-14 06:15 | PN_ITS ---
Patient Problems: Active and Suspected Problems (Last Reviewed 08/12/20 @ 18:[address] Shaila Mims DO) Pneumonia (Acute) COVID-19 (Acute) Subjective: The patient was seen and examined at the bedside this morning. Events from the last 24 hours have been reviewed. The patient is currently afebrile, hemodynamically stable and maintaining appropriate oxygen saturations on 5 L/min via nasal cannula. The patient is currently receiving remdesivir and Decadron, along with Lovenox twice daily. The patient does report that she feels better this morning than yesterday. Objective: The patient's most recent lab work, culture data and imaging studies have all been personally reviewed. Coronavirus PCR was positive on August 06. - Physical Exam Vitals/I&O's: Vital Signs Temp Pulse Resp BP Pulse Ox 98.9 F 91 18 136/84 H 95 08/14/20 05:32 08/14/20 05:32 08/14/20 05:32 08/14/20 05:32 08/14/20 05:32 Oxygen Flow Rate (L/min) 5 Oxygen Delivery Method Nasal Cannula Weight: 162 lb 14.746 oz Body Mass Index (BMI) 36.2 Intake and Output for Last 24 Hours 08/12/20 08/13/20 08/14/20 23:59 23:59 23:59 Intake Total 375 / 615 1390 / 1510 120 / 120 Balance 375 / 615 1390 / 1510 120 / 120 General: Alert, Cooperative, No apparent distress HEENT: Atraumatic, PERRLA, Normocephalic Oral: No Gingival or Mucosal Lesions/ Ulcerations Neck: Supple, No Nodes, Trachea Midline Lungs: No rhonchi, No wheeze, No rales, Diminished Cardiovascular: Regular rate, Regular Rhythm Abdomen: Bowel Sounds Present, Soft, Non Tender, Obese Extremities: No clubbing, No cyanosis, No edema Skin: No breakdown Musculoskeletal: No Tenderness to Palpation of Joints or Extremities Lymphatic: No Cervical, Supraclavicular, or Inguinal Adenopathy Neurological: Cranial nerves II-XII grossly intact, Neuro grossly intact Psych/Mental Status: Anxious Labs (Last 48 Hours) 08/12/20 08/12/20 08/12/20 12:33 12:33 12:33 WBC 7.4 RBC 3.25 L Hgb 9.9 L Hct 32.4 L MCV 99.7 H MCH 30.5 MCHC 30.6 L RDW Std Deviation 54.4 H RDW Coeff of Noe 14.8 H Plt Count 146 L MPV 10.0 Immature Gran % (Auto) 0.700 Neut % (Auto) 88.9 H Lymph % (Auto) 6.9 L [place] % (Auto) 3.4 Eos % (Auto) 0.0 Baso % (Auto) 0.1 Absolute Neuts (auto) 6.6 Absolute Lymphs (auto) 0.51 L Nucleated RBC % 0 Differential Comment Platelet Estimate ADEQUATE RBC Morphology NORM C+C Fibrinogen D-Dimer Quant (PE/DVT) Sodium Cancelled Potassium Cancelled Chloride Cancelled Carbon Dioxide Cancelled Anion Gap Cancelled BUN Cancelled Creatinine Cancelled Estim Creat Clear Calc Cancelled Est GFR (MDRD) Af Amer Cancelled Est GFR (MDRD) Non-Af Cancelled BUN/Creatinine Ratio Cancelled Glucose Cancelled Lactic Acid 1.9 Calcium Cancelled Phosphorus Magnesium Total Bilirubin Cancelled AST Cancelled ALT Cancelled Alkaline Phosphatase Cancelled CK Isoenzymes CK-MM (CK-3) CK-MB (CK-2) CK-BB (CK-1) Total Protein Cancelled Albumin Cancelled Globulin Cancelled Albumin/Globulin Ratio Cancelled Procalcitonin POC Glucose Blood Type Antibody Screen 08/12/20 08/12/20 08/12/20 13:38 17:14 17:28 WBC RBC Hgb Hct MCV MCH MCHC RDW Std Deviation RDW Coeff of Noe Plt Count MPV Immature Gran % (Auto) Neut % (Auto) Lymph % (Auto) [place] % (Auto) Eos % (Auto) Baso % (Auto) Absolute Neuts (auto) Absolute Lymphs (auto) Nucleated RBC % Differential Comment Platelet Estimate RBC Morphology Fibrinogen D-Dimer Quant (PE/DVT) Sodium 141 Potassium 3.5 Chloride 106 Carbon Dioxide 30.0 Anion Gap 5 BUN 14 Creatinine 0.85 Estim Creat Clear Calc 93.84 Est GFR (MDRD) Af Amer 88 Est GFR (MDRD) Non-Af 73 BUN/Creatinine Ratio 16.4 Glucose 120 H Lactic Acid Calcium 8.2 L Phosphorus Magnesium Total Bilirubin 0.30 AST 16 ALT 19 Alkaline Phosphatase 58 CK Isoenzymes CK-MM (CK-3) CK-MB (CK-2) CK-BB (CK-1) Total Protein 5.4 L Albumin 2.5 L Globulin 2.9 Albumin/Globulin Ratio 0.9 Procalcitonin POC Glucose 142 H Blood Type A POSITIVE Antibody Screen NEGATIVE 08/12/20 08/12/20 08/12/20 17:28 17:28 17:28 WBC RBC Hgb Hct MCV MCH MCHC RDW Std Deviation RDW Coeff of Noe Plt Count MPV Immature Gran % (Auto) Neut % (Auto) Lymph % (Auto) [place] % (Auto) Eos % (Auto) Baso % (Auto) Absolute Neuts (auto) Absolute Lymphs (auto) Nucleated RBC % Differential Comment Platelet Estimate RBC Morphology Fibrinogen 453 H D-Dimer Quant (PE/DVT) 0.96 H* Sodium Potassium Chloride Carbon Dioxide Anion Gap BUN Creatinine Estim Creat Clear Calc Est GFR (MDRD) Af Amer Est GFR (MDRD) Non-Af BUN/Creatinine Ratio Glucose Lactic Acid Calcium Phosphorus Magnesium Total Bilirubin AST ALT Alkaline Phosphatase CK Isoenzymes Pending CK-MM (CK-3) Pending CK-MB (CK-2) Pending CK-BB (CK-1) Pending Total Protein Albumin Globulin Albumin/Globulin Ratio Procalcitonin 0.06 POC Glucose Blood Type Antibody Screen 08/12/20 08/13/20 08/13/20 21:06 04:35 04:35 WBC 4.6 RBC 3.22 L Hgb 10.0 L Hct 32.6 L MCV 101.2 H MCH 31.1 MCHC 30.7 L RDW Std Deviation 54.5 H RDW Coeff of Noe 14.6 Plt Count 156 MPV 9.8 Immature Gran % (Auto) 2.000 H Neut % (Auto) 79.4 H Lymph % (Auto) 13.4 L [place] % (Auto) 4.8 Eos % (Auto) 0.0 Baso % (Auto) 0.4 Absolute Neuts (auto) 3.6 Absolute Lymphs (auto) 0.61 L Nucleated RBC % 0 Differential Comment Platelet Estimate RBC Morphology Fibrinogen D-Dimer Quant (PE/DVT) Sodium 139 Potassium 4.2 Chloride 103 Carbon Dioxide 31.0 Anion Gap 5 BUN 16 Creatinine 0.79 Estim Creat Clear Calc 100.96 Est GFR (MDRD) Af Amer 96 Est GFR (MDRD) Non-Af 79 BUN/Creatinine Ratio 20.2 H Glucose 105 Lactic Acid Calcium 8.0 L Phosphorus 3.4 Magnesium 1.8 Total Bilirubin 0.30 AST 19 ALT 20 Alkaline Phosphatase 58 CK Isoenzymes CK-MM (CK-3) CK-MB (CK-2) CK-BB (CK-1) Total Protein 5.7 L Albumin 2.5 L Globulin 3.2 Albumin/Globulin Ratio 0.8 L Procalcitonin POC Glucose 151 H Blood Type Antibody Screen 08/13/20 08/13/20 08/13/20 04:35 06:22 10:39 WBC RBC Hgb Hct MCV MCH MCHC RDW Std Deviation RDW Coeff of Noe Plt Count MPV Immature Gran % (Auto) Neut % (Auto) Lymph % (Auto) [place] % (Auto) Eos % (Auto) Baso % (Auto) Absolute Neuts (auto) Absolute Lymphs (auto) Nucleated RBC % Differential Comment Platelet Estimate RBC Morphology Fibrinogen D-Dimer Quant (PE/DVT) Sodium Potassium Chloride Carbon Dioxide Anion Gap BUN Creatinine Estim Creat Clear Calc Est GFR (MDRD) Af Amer Est GFR (MDRD) Non-Af BUN/Creatinine Ratio Glucose Lactic Acid Calcium Phosphorus Magnesium Total Bilirubin AST ALT Alkaline Phosphatase Cancelled CK Isoenzymes CK-MM (CK-3) CK-MB (CK-2) CK-BB (CK-1) Total Protein Albumin Globulin Albumin/Globulin Ratio Procalcitonin POC Glucose 116 H 124 H Blood Type Antibody Screen Clinical Impression(s) from Imaging Studies Chest X-Ray 08/12/20 12:27 IMPRESSION: Bibasilar pulmonary infiltrates with blunting of the left costophrenic angle. Electronically Signed: Presley Charles, at 13:13 EST , Service support , Current Medications Acetaminophen (Acetaminophen 325 Mg Tablet) 650 mg PO Q6H PRN PRN PRN Reason: Pain Score 1-10/Temp > 100.7 F Al Hydroxide/Mg Hydroxide (Mag Hydrox/Al Hydrox/Simeth 30 Ml Udc) 30 ml PO Q6H PRN PRN PRN Reason: Gastric Burning Albuterol Sulfate (Albuterol 2.5 Mg/3 Ml Vial.Neb.) 2.5 mg INHALATION Q2H PRN PRN PRN Reason: Shortness of Breath/Wheezing Last Admin: 08/12/20 19:44 Dose: 2.5 mg Documented by: Albuterol/Ipratropium (Ipratropium/Albuterol Sulfate 3 Ml Ampul.Neb) 3 ml INHALATION Q6H PRN PRN Reason: wheezing Last Admin: 08/13/20 18:54 Dose: 3 ml Documented by: Alprazolam (Alprazolam 0.5 Mg Tablet) 0.5 mg PO TID [facility] Last Admin: 08/14/20 05:31 Dose: 0.5 mg Documented by: Azelastine HCl (Azelastine Hcl Nasal.Sry) 1 spray NASAL BID [facility] Last Admin: 08/13/20 21:33 Dose: Not Given Documented by: Buspirone HCl (Buspirone 5 Mg Tablet) 10 mg PO TID [facility] Last Admin: 08/14/20 05:31 Dose: 10 mg Documented by: Dexamethasone (Dexamethasone 4 Mg Tablet) 6 mg PO DAILY@0800 [facility] Stop: 08/23/20 08:01 Last Admin: 08/13/20 09:29 Dose: 6 mg Documented by: Diltiazem HCl (Diltiazem Cd 240 Mg Capsule) 240 mg PO DAILY [facility] Last Admin: 08/13/20 09:29 Dose: 240 mg Documented by: Enoxaparin Sodium (Enoxaparin 40 Mg/0.4 Ml Syringe) 40 mg SC BID [facility] Last Admin: 08/13/20 21:32 Dose: 40 mg Documented by: Fluticasone Propionate (Fluticasone 0.05% 1 [place] Nasal.Sry) 2 spray NASAL DAILY [facility] Last Admin: 08/13/20 09:29 Dose: Not Given Documented by: Remdesivir 100 mg/ Sodium (Chloride) 250 mls @ 125 mls/hr IV DAILY [facility]; Protocol Stop: 08/17/20 11:59 Imatinib Mesylate (Imatinib Mesylate 400 Mg Tablet) 400 mg PO DAILY@1600 [facility] Last Admin: 08/13/20 15:37 Dose: 400 mg Documented by: Melatonin (Melatonin 3 Mg Tablet) 3 mg PO QHS PRN PRN PRN Reason: INSOMNIA Oxycodone HCl (Oxycodone 5 Mg Tablet) 10 mg PO Q6H PRN PRN PRN Reason: Pain Score 1-10 Last Admin: 08/13/20 21:32 Dose: 10 mg Documented by: Pantoprazole Sodium (Pantoprazole Sodium 40 Mg Tablet) 40 mg PO DAILY [facility] Last Admin: 08/13/20 09:29 Dose: 40 mg Documented by: Prochlorperazine Maleate (Prochlorperazine 5 Mg Tablet) 10 mg PO Q6H PRN PRN Reason: NAUSEA Last Admin: 08/13/20 16:32 Dose: 10 mg Documented by: Senna/Docusate Sodium (Senna/Docusate Sodium 1 Tablet) 2 tablet PO BID PRN PRN PRN Reason: Constipation Sertraline HCl (Sertraline 50 Mg Tablet) 25 mg PO DAILY [facility] Last Admin: 08/13/20 09:28 Dose: 25 mg Documented by: Sertraline HCl (Sertraline 50 Mg Tablet) 50 mg PO DAILY [facility] Last Admin: 08/13/20 09:28 Dose: 50 mg Documented by: Sodium Chloride (0.9% Saline Lock 10 Ml Syringe) 10 - 40 ml IV UD PRN PRN Reason: SALINE FLUSH Last Admin: 08/13/20 10:48 Dose: 10 ml Documented by: Throat Lozenges (Benzocaine/Menthol 1 Lozenge) 1 lozenge MUCOUS MEM Q2H PRN PRN PRN Reason: SORE THROAT Medical Necessity - Tobacco Use Smoking Status: Former smoker Tobacco Use: Cigarettes Assessment/Plan All Active Problems (Last Reviewed 08/12/20 @ 18:[address] Shaila Mims, DO) Pneumonia (Acute) COVID-19 (Acute) RECOMMENDATIONS: 1. Wean supplemental oxygen to maintain saturations at or above 90%. 2. Continue bronchodilator therapy as ordered. 3. Continue Decadron 6 mg daily. 4. Continue remdesivir and monitor liver and renal function closely. IMPRESSIONS: 1. Acute on chronic hypoxemic respiratory failure secondary to COVID-19 pneumonia The patient has advanced age COPD and chronic hypoxemic respiratory failure with a baseline 4 L/min oxygen requirement, along with CML. She has been symptomatic now for approximately 1 week after having tested positive on August 06. The patient did refuse convalescent plasma. However, she was started on remdesivir and Decadron. We will continue to monitor liver and renal function accordingly. Continue to wean supplemental oxygen as tolerated. Continue scheduled bronchodilators as ordered. 2. History of CML/obesity/depression/anxiety/GERD Complicates care, management, recovery and prognosis. Continue home medications as indicated. This note was generated with [employer] dictation software. It may contain incorrect words, spelling, and punctuation that were not noted in checking the note before signing. Inpatient E&M: 26327 Subs Hosp L2
[2020-08-14] MEDS: Albuterol 2.5 MG/3 ML VIAL.NEB. INHALATION (07:42)
[2020-08-14 08:49] LABS: Hematocrit 33.8 % (37-47); Hemoglobin 10.2 g/dL (12.0-15.0); Mean Corp Hgb Conc 30.2 g/dL (32-36); Mean Corpuscular Hgb 30.1 pg (27.0-32.0); Mean Corpuscular Volume 99.7 fL (81-99); Mean Platelet Vol. 9.4 fl (6.2-12.0); Platelet Count 171 K/mm3 (150-450); RBC Distribution Width CV 14.6 % (11.6-14.6); RBC Distribution Width SD 53.4 fl (35.1-43.9); Red Blood Count 3.39 M/mm3 (4.2-5.4); White Blood Count 5.7 K/mm3 (4.4-11.0)
[2020-08-14] MEDS: dexAMETHasone 4 MG Tablet 6 MG PO (09:14)
[2020-08-14] MEDS: Enoxaparin 40 MG/0.4 ML Syringe SC ×2 (09:15→20:34)
[2020-08-14] MEDS: Sertraline 50 MG Tablet PO (09:15)
[2020-08-14] MEDS: Pantoprazole Sodium 40 MG Tablet PO (09:15)
[2020-08-14] MEDS: dilTIAZem CD 240 MG Capsule PO (09:15)
[2020-08-14] MEDS: Sertraline 50 MG Tablet 25 MG PO (09:15)
[2020-08-14 09:19] LABS: ALB/GLOB Ratio 0.8 RATIO (0.9-2.4); AST(SGOT) 16 U/L (15-37); Alanine Aminotransfer ALT/SGPT 20 U/L (13-56); Albumin, Serum 2.6 g/dL (3.2-5.0); Alkaline Phosphatase 59 U/L (45-117); Anion Gap 5 (5-15); BUN 23 mg/dL (7-18); BUN/Creat Ratio 23.9 RATIO (10-20); Calcium,Total 8.4 mg/dL (8.5-10.1); Chloride 104 mmol/L (98-107); Creatinine, Serum 0.96 mg/dL (0.55-1.02); EST Glomerular Filtration Rate 63 mL/min (>60); Est Glom Filt Rate - Afr Amer 77 mL/min (>60); Estimated Creatinine Clearance 75.22 ml/min; Globulin 3.2 g/dL (2.2-4.2); Glucose 103 mg/dL (74-106); Potassium 3.6 mmol/L (3.5-5.1); Protein, Total 5.8 g/dL (6.4-8.2); Sodium Level 141 mmol/L (136-145)
[2020-08-14] MEDS: 0.9% Saline Lock 10 ML Syringe IV ×2 (10:26→13:06)
[2020-08-14] MEDS: proCHLORPERazine 5 MG Tablet 10 MG PO (12:01)
[2020-08-14] MEDS: oxyCODONE 5 MG Tablet 10 MG PO ×2 (12:01→21:48)
--- NOTE | 2020-08-14 13:20 | PCM.PROGNOTE ---
Patient Problems: Active and Suspected Problems (Last Reviewed 08/12/20 @ 18:[address] Shaila Mims, DO) Pneumonia (Acute) COVID-19 (Acute) Subjective: She was seen and examined today, she refused convalescent plasma at this time-she states she is afraid to take it. I also discussed her CODE STATUS with her, she reiterated that she did not want to be placed on a ventilator or have any resuscitation if she coded. Objective: General: Alert, Oriented x3, Cooperative, No apparent distress, Well developed, Well nourished HEENT: Atraumatic, PERRLA, EOMI, Normocephalic Oral: Moist Mucosa Neck: Supple, No JVD, Trachea Midline, Thyroid Normal Size and Texture Lungs: Normal air movement, Wheezes - Expiratory wheezes are noted bilaterally Cardiovascular: Regular rate, Regular Rhythm, Normal S1, Normal S2, No murmurs, PMI Normal, No rub noted, No Gallop Abdomen: Bowel Sounds Present, Soft, Non Tender, Non-Distended Extremities: No clubbing, No cyanosis, No edema, Capillary Refill Less than 3 Seconds Skin: No rashes, No breakdown Musculoskeletal: No Tenderness to Palpation of Joints or Extremities Neurological: Cranial nerves II-XII grossly intact, Neuro grossly intact, Sensory exam intact to light touch and pain Psych/Mental Status: Normal Affect, Appropriate, Alert and oriented to time, place, person, mood and affect - Physical Exam Vitals/I&O's: Vital Signs Temp Pulse Resp BP Pulse Ox 100.2 F H 103 H 18 145/95 H 94 08/14/20 11:00 08/14/20 11:00 08/14/20 11:00 08/14/20 11:00 08/14/20 11:00 Oxygen Flow Rate (L/min) 4 Oxygen Delivery Method Nasal Cannula Weight: 73.7 kg Body Mass Index (BMI) 36.2 Intake and Output for Last 24 Hours 08/12/20 08/13/20 08/14/20 23:59 23:59 23:59 Intake Total 375 / 615 1390 / 1510 420 / 420 Balance 375 / 615 1390 / 1510 420 / 420 Laboratory Results 08/14/20 08:06: WBC 5.7, RBC 3.39 L, Hgb 10.2 L, Hct 33.8 L, MCV 99.7 H, MCH 30.1, MCHC 30.2 L, RDW Std Deviation 53.4 H, RDW Coeff of Noe 14.6, Plt Count 171, MPV 9.4 08/14/20 08:06: Sodium 141, Potassium 3.6, Chloride 104, Carbon Dioxide 32.0, Anion Gap 5, BUN 23 H, Creatinine 0.96, Estim Creat Clear Calc 75.22, Est GFR (MDRD) Af Amer 77, Est GFR (MDRD) Non-Af 63, BUN/Creatinine Ratio 23.9 H, Glucose 103, Calcium 8.4 L, Total Bilirubin 0.30, AST 16, ALT 20, Alkaline Phosphatase 59, Total Protein 5.8 L, Albumin 2.6 L, Globulin 3.2, Albumin/Globulin Ratio 0.8 L Current Medications Acetaminophen (Acetaminophen 325 Mg Tablet) 650 mg PO Q6H PRN PRN PRN Reason: Pain Score 1-10/Temp > 100.7 F Al Hydroxide/Mg Hydroxide (Mag Hydrox/Al Hydrox/Simeth 30 Ml Udc) 30 ml PO Q6H PRN PRN PRN Reason: Gastric Burning Albuterol Sulfate (Albuterol 2.5 Mg/3 Ml Vial.Neb.) 2.5 mg INHALATION Q2H PRN PRN PRN Reason: Shortness of Breath/Wheezing Last Admin: 08/14/20 07:42 Dose: 2.5 mg Documented by: Albuterol/Ipratropium (Ipratropium/Albuterol Sulfate 3 Ml Ampul.Neb) 3 ml INHALATION Q6H PRN PRN Reason: wheezing Last Admin: 08/13/20 18:54 Dose: 3 ml Documented by: Alprazolam (Alprazolam 0.5 Mg Tablet) 0.5 mg PO TID [facility] Last Admin: 08/14/20 05:31 Dose: 0.5 mg Documented by: Azelastine HCl (Azelastine Hcl Nasal.Sry) 1 spray NASAL BID [facility] Last Admin: 08/14/20 09:16 Dose: Not Given Documented by: Buspirone HCl (Buspirone 5 Mg Tablet) 10 mg PO TID [facility] Last Admin: 08/14/20 05:31 Dose: 10 mg Documented by: Dexamethasone (Dexamethasone 4 Mg Tablet) 6 mg PO DAILY@0800 [facility] Stop: 08/23/20 08:01 Last Admin: 08/14/20 09:14 Dose: 6 mg Documented by: Diltiazem HCl (Diltiazem Cd 240 Mg Capsule) 240 mg PO DAILY [facility] Last Admin: 08/14/20 09:15 Dose: 240 mg Documented by: Enoxaparin Sodium (Enoxaparin 40 Mg/0.4 Ml Syringe) 40 mg SC BID [facility] Last Admin: 08/14/20 09:15 Dose: 40 mg Documented by: Fluticasone Propionate (Fluticasone 0.05% 1 [place] Nasal.Sry) 2 spray NASAL DAILY [facility] Last Admin: 08/14/20 09:16 Dose: Not Given Documented by: Remdesivir 100 mg/ Sodium (Chloride) 250 mls @ 125 mls/hr IV DAILY [facility]; Protocol Stop: 08/17/20 11:59 Last Infusion: 08/14/20 13:06 Dose: Infused Documented by: Imatinib Mesylate (Imatinib Mesylate 400 Mg Tablet) 400 mg PO DAILY@1600 [facility] Last Admin: 08/13/20 15:37 Dose: 400 mg Documented by: Melatonin (Melatonin 3 Mg Tablet) 3 mg PO QHS PRN PRN PRN Reason: INSOMNIA Oxycodone HCl (Oxycodone 5 Mg Tablet) 10 mg PO Q6H PRN PRN PRN Reason: Pain Score 1-10 Last Admin: 08/14/20 12:01 Dose: 10 mg Documented by: Pantoprazole Sodium (Pantoprazole Sodium 40 Mg Tablet) 40 mg PO DAILY [facility] Last Admin: 08/14/20 09:15 Dose: 40 mg Documented by: Prochlorperazine Maleate (Prochlorperazine 5 Mg Tablet) 10 mg PO Q6H PRN PRN Reason: NAUSEA Last Admin: 08/14/20 12:01 Dose: 10 mg Documented by: Senna/Docusate Sodium (Senna/Docusate Sodium 1 Tablet) 2 tablet PO BID PRN PRN PRN Reason: Constipation Sertraline HCl (Sertraline 50 Mg Tablet) 25 mg PO DAILY [facility] Last Admin: 08/14/20 09:15 Dose: 25 mg Documented by: Sertraline HCl (Sertraline 50 Mg Tablet) 50 mg PO DAILY [facility] Last Admin: 08/14/20 09:15 Dose: 50 mg Documented by: Sodium Chloride (0.9% Saline Lock 10 Ml Syringe) 10 - 40 ml IV UD PRN PRN Reason: SALINE FLUSH Last Admin: 08/14/20 13:06 Dose: 10 ml Documented by: Throat Lozenges (Benzocaine/Menthol 1 Lozenge) 1 lozenge MUCOUS MEM Q2H PRN PRN PRN Reason: SORE THROAT Medical Necessity - Tobacco Use Smoking Status: Former smoker Tobacco Use: Cigarettes Assessment/Plan All Active Problems (Last Reviewed 08/12/20 @ 18:[address] Shaila Mims, DO) Pneumonia (Acute) COVID-19 (Acute) #1 COVID-19 pneumonia-continue treatment per infectious diseases and pulmonary medicine #2 hypoxic respiratory failure-acute on chronic-patient's oxygen requirement has increased from her home oxygen requirement-currently she is on 5 L via nasal cannula, pulse ox will be monitored #3 chronic obstructive pulmonary disease #4 chronic myelocytic leukemia #5 chronic depression Inpatient E&M: 35335 Subs Hosp L2
[2020-08-14] MEDS: Ipratropium/Albuterol Sulfate 3 ML AMPUL.NEB INHALATION (19:43)
[2020-08-14 20:07] LABS: Creatine Kinase MB 0 % (0-3); Creatine Kinase MM 100 % (97-100); Creatine Kinase,Total,Serum 53 U/L (32-182); Macro I 0 % (Not Observed); Macro II 0 % (Not Observed)
[2020-08-15] VITALS (14 sets, daily range): BP systolic 113–133; BP diastolic 61–81; PULSE 77–119; RESP 18–24; TEMP 36.1–37.3; O2SAT 93–97
[2020-08-15] MEDS: busPIRone 5 MG Tablet 10 MG PO ×3 (05:47→21:50)
[2020-08-15] MEDS: ALPRAZolam 0.5 MG Tablet PO ×3 (05:47→21:50)
--- NOTE | 2020-08-15 06:54 | PCM.PN.PUL ---
Patient Problems: Active and Suspected Problems (Last Reviewed 08/12/20 @ 18:[address] Shaila Mims DO) Pneumonia (Acute) COVID-19 (Acute) Subjective: The patient was seen and examined at the bedside this morning. Events from the last 24 hours have been reviewed. The patient is currently afebrile, hemodynamically stable and maintaining appropriate oxygen saturations on 5 L/min via nasal cannula. The patient remains anxious but is otherwise clinically stable. The patient is currently receiving remdesivir and Decadron, along with Lovenox twice daily. Objective: The patient's most recent lab work, culture data and imaging studies have all been personally reviewed. Coronavirus PCR was positive on August 06. - Physical Exam Vitals/I&O's: Vital Signs Temp Pulse Resp BP Pulse Ox 97.0 F L 77 18 118/71 97 08/15/20 02:30 08/15/20 03:35 08/15/20 02:30 08/15/20 02:30 08/15/20 02:30 Oxygen Flow Rate (L/min) 5 Oxygen Delivery Method Nasal Cannula Weight: 162 lb 7.691 oz Body Mass Index (BMI) 36.2 Intake and Output for Last 24 Hours 08/13/20 08/14/20 08/15/20 23:59 23:59 23:59 Intake Total 1390 / 1510 1560 / 1560 Balance 1390 / 1510 1560 / 1560 General: Alert, Cooperative HEENT: Atraumatic, PERRLA, Normocephalic Oral: No Gingival or Mucosal Lesions/ Ulcerations Neck: Supple, No Nodes, Trachea Midline Lungs: No rhonchi, No wheeze, No rales, Diminished Cardiovascular: Regular rate, Regular Rhythm, Normal S1, Normal S2, No murmurs Abdomen: Bowel Sounds Present, Soft, Non Tender, Obese Extremities: No clubbing, No cyanosis, No edema Skin: No breakdown Musculoskeletal: No Tenderness to Palpation of Joints or Extremities Lymphatic: No Cervical, Supraclavicular, or Inguinal Adenopathy Neurological: Cranial nerves II-XII grossly intact, Neuro grossly intact Psych/Mental Status: Anxious Labs (Last 48 Hours) 08/13/20 08/13/20 08/14/20 04:35 10:39 08:06 WBC 5.7 RBC 3.39 L Hgb 10.2 L Hct 33.8 L MCV 99.7 H MCH 30.1 MCHC 30.2 L RDW Std Deviation 53.4 H RDW Coeff of Noe 14.6 Plt Count 171 MPV 9.4 Sodium Potassium Chloride Carbon Dioxide Anion Gap BUN Creatinine Estim Creat Clear Calc Est GFR (MDRD) Af Amer Est GFR (MDRD) Non-Af BUN/Creatinine Ratio Glucose Calcium Total Bilirubin AST ALT Alkaline Phosphatase Cancelled Total Protein Albumin Globulin Albumin/Globulin Ratio POC Glucose 124 H 08/14/20 08:06 WBC RBC Hgb Hct MCV MCH MCHC RDW Std Deviation RDW Coeff of Noe Plt Count MPV Sodium 141 Potassium 3.6 Chloride 104 Carbon Dioxide 32.0 Anion Gap 5 BUN 23 H Creatinine 0.96 Estim Creat Clear Calc 75.22 Est GFR (MDRD) Af Amer 77 Est GFR (MDRD) Non-Af 63 BUN/Creatinine Ratio 23.9 H Glucose 103 Calcium 8.4 L Total Bilirubin 0.30 AST 16 ALT 20 Alkaline Phosphatase 59 Total Protein 5.8 L Albumin 2.6 L Globulin 3.2 Albumin/Globulin Ratio 0.8 L POC Glucose Microbiology 08/12/20 12:33 Blood Culture (Wb) - Left Hand Blood Culture - Preliminary No growth in 48 hours. 08/12/20 12:33 Blood Culture (Wb) - Anticubital Right Blood Culture - Preliminary No growth in 48 hours. Clinical Impression(s) from Imaging Studies Chest X-Ray 08/12/20 12:27 IMPRESSION: Bibasilar pulmonary infiltrates with blunting of the left costophrenic angle. Electronically Signed: Presley Charles, at 13:13 EST , Service support , Current Medications Acetaminophen (Acetaminophen 325 Mg Tablet) 650 mg PO Q6H PRN PRN PRN Reason: Pain Score 1-10/Temp > 100.7 F Al Hydroxide/Mg Hydroxide (Mag Hydrox/Al Hydrox/Simeth 30 Ml Udc) 30 ml PO Q6H PRN PRN PRN Reason: Gastric Burning Albuterol Sulfate (Albuterol 2.5 Mg/3 Ml Vial.Neb.) 2.5 mg INHALATION Q2H PRN PRN PRN Reason: Shortness of Breath/Wheezing Last Admin: 08/14/20 07:42 Dose: 2.5 mg Documented by: Albuterol/Ipratropium (Ipratropium/Albuterol Sulfate 3 Ml Ampul.Neb) 3 ml INHALATION Q6H PRN PRN Reason: wheezing Last Admin: 08/14/20 19:43 Dose: 3 ml Documented by: Alprazolam (Alprazolam 0.5 Mg Tablet) 0.5 mg PO TID [facility] Last Admin: 08/15/20 05:47 Dose: 0.5 mg Documented by: Azelastine HCl (Azelastine Hcl Nasal.Sry) 1 spray NASAL BID [facility] Last Admin: 08/14/20 20:46 Dose: Not Given Documented by: Buspirone HCl (Buspirone 5 Mg Tablet) 10 mg PO TID [facility] Last Admin: 08/15/20 05:47 Dose: 10 mg Documented by: Dexamethasone (Dexamethasone 4 Mg Tablet) 6 mg PO DAILY@0800 [facility] Stop: 08/23/20 08:01 Last Admin: 08/14/20 09:14 Dose: 6 mg Documented by: Diltiazem HCl (Diltiazem Cd 240 Mg Capsule) 240 mg PO DAILY [facility] Last Admin: 08/14/20 09:15 Dose: 240 mg Documented by: Enoxaparin Sodium (Enoxaparin 40 Mg/0.4 Ml Syringe) 40 mg SC BID [facility] Last Admin: 08/14/20 20:34 Dose: 40 mg Documented by: Fluticasone Propionate (Fluticasone 0.05% 1 [place] Nasal.Sry) 2 spray NASAL DAILY [facility] Last Admin: 08/14/20 09:16 Dose: Not Given Documented by: Remdesivir 100 mg/ Sodium (Chloride) 250 mls @ 125 mls/hr IV DAILY [facility]; Protocol Stop: 08/17/20 11:59 Last Infusion: 08/14/20 13:06 Dose: Infused Documented by: Imatinib Mesylate (Imatinib Mesylate 400 Mg Tablet) 400 mg PO DAILY@1600 [facility] Last Admin: 08/14/20 16:54 Dose: 400 mg Documented by: Melatonin (Melatonin 3 Mg Tablet) 3 mg PO QHS PRN PRN PRN Reason: INSOMNIA Oxycodone HCl (Oxycodone 5 Mg Tablet) 10 mg PO Q6H PRN PRN PRN Reason: Pain Score 1-10 Last Admin: 08/14/20 21:48 Dose: 10 mg Documented by: Pantoprazole Sodium (Pantoprazole Sodium 40 Mg Tablet) 40 mg PO DAILY [facility] Last Admin: 08/14/20 09:15 Dose: 40 mg Documented by: Prochlorperazine Maleate (Prochlorperazine 5 Mg Tablet) 10 mg PO Q6H PRN PRN Reason: NAUSEA Last Admin: 08/14/20 12:01 Dose: 10 mg Documented by: Senna/Docusate Sodium (Senna/Docusate Sodium 1 Tablet) 2 tablet PO BID PRN PRN PRN Reason: Constipation Sertraline HCl (Sertraline 50 Mg Tablet) 25 mg PO DAILY [facility] Last Admin: 08/14/20 09:15 Dose: 25 mg Documented by: Sertraline HCl (Sertraline 50 Mg Tablet) 50 mg PO DAILY [facility] Last Admin: 08/14/20 09:15 Dose: 50 mg Documented by: Sodium Chloride (0.9% Saline Lock 10 Ml Syringe) 10 - 40 ml IV UD PRN PRN Reason: SALINE FLUSH Last Admin: 08/14/20 13:06 Dose: 10 ml Documented by: Throat Lozenges (Benzocaine/Menthol 1 Lozenge) 1 lozenge MUCOUS MEM Q2H PRN PRN PRN Reason: SORE THROAT Medical Necessity - Tobacco Use Smoking Status: Former smoker Tobacco Use: Cigarettes Assessment/Plan All Active Problems (Last Reviewed 08/12/20 @ 18:[address] Shaila Mims DO) Pneumonia (Acute) COVID-19 (Acute) RECOMMENDATIONS: 1. Wean supplemental oxygen to maintain saturations at or above 90%. 2. Continue bronchodilator therapy as ordered. 3. Continue Decadron 6 mg daily. 4. Continue remdesivir and monitor liver and renal function closely. 5. Potassium repletion as ordered. IMPRESSIONS: 1. Acute on chronic hypoxemic respiratory failure secondary to COVID-19 pneumonia The patient has advanced age COPD and chronic hypoxemic respiratory failure with a baseline 4 L/min oxygen requirement, along with CML. She has been symptomatic now for approximately 1 week after having tested positive on August 06. The patient did refuse convalescent plasma. However, she was started on remdesivir and Decadron. We will continue to monitor liver and renal function accordingly. Continue to wean supplemental oxygen as tolerated. Continue scheduled bronchodilators as ordered. 2. Hypokalemia Electrolyte repletion as ordered. Recheck levels in the morning. 3. History of CML/obesity/depression/anxiety/GERD Complicates care, management, recovery and prognosis. Continue home medications as indicated. This note was generated with [employer] dictation software. It may contain incorrect words, spelling, and punctuation that were not noted in checking the note before signing. Inpatient E&M: 15315 Subs Hosp L2
[2020-08-15 07:00] LABS: Hematocrit 32.6 % (37-47); Mean Corp Hgb Conc 30.7 g/dL (32-36); Mean Corpuscular Hgb 30.3 pg (27.0-32.0); Mean Corpuscular Volume 98.8 fL (81-99); Mean Platelet Vol. 9.2 fl (6.2-12.0); Platelet Count 191 K/mm3 (150-450); RBC Distribution Width CV 14.5 % (11.6-14.6); RBC Distribution Width SD 52.8 fl (35.1-43.9); White Blood Count 6.4 K/mm3 (4.4-11.0)
[2020-08-15 07:23] LABS: ALB/GLOB Ratio 0.9 RATIO (0.9-2.4); AST(SGOT) 18 U/L (15-37); Alanine Aminotransfer ALT/SGPT 21 U/L (13-56); Albumin, Serum 2.7 g/dL (3.2-5.0); Alkaline Phosphatase 59 U/L (45-117); Anion Gap 5 (5-15); BUN 26 mg/dL (7-18); BUN/Creat Ratio 26.4 RATIO (10-20); Chloride 104 mmol/L (98-107); Creatinine, Serum 0.99 mg/dL (0.55-1.02); EST Glomerular Filtration Rate 62 mL/min (>60); Est Glom Filt Rate - Afr Amer 75 mL/min (>60); Estimated Creatinine Clearance 72.95 ml/min; Globulin 3.1 g/dL (2.2-4.2); Glucose 122 mg/dL (74-106); Potassium 3.4 mmol/L (3.5-5.1); Protein, Total 5.8 g/dL (6.4-8.2); Sodium Level 139 mmol/L (136-145)
[2020-08-15 07:39] LABS: Creatine Kinase BB 0 % (0)
[2020-08-15] MEDS: dexAMETHasone 4 MG Tablet 6 MG PO (09:16)
[2020-08-15] MEDS: dilTIAZem CD 240 MG Capsule PO (09:17)
[2020-08-15] MEDS: Sertraline 50 MG Tablet PO (09:18)
[2020-08-15] MEDS: Pantoprazole Sodium 40 MG Tablet PO (09:18)
[2020-08-15] MEDS: Enoxaparin 40 MG/0.4 ML Syringe SC ×2 (09:19→21:50)
--- NOTE | 2020-08-15 09:22 | PCM.PROGNOTE ---
Patient Problems: Active and Suspected Problems (Last Reviewed 08/12/20 @ 18:[address] Shaila Mims, DO) Pneumonia (Acute) COVID-19 (Acute) Subjective: Patient was seen and examined today, her oxygen requirement remains the same at 5 L today. Patient states she is not receiving aerosol treatments-these were ordered on admission I will have nursing check on this. Patient does not complain of any increased shortness of breath, fever, chills, or chest pain. Objective: General: Alert, Oriented x3, Cooperative, No apparent distress, Well developed, Well nourished HEENT: Atraumatic, PERRLA, EOMI, Normocephalic Oral: Moist Mucosa Neck: Supple, No JVD, Trachea Midline, Thyroid Normal Size and Texture Lungs: Normal air movement, Wheezes - Expiratory wheezes are noted bilaterally Cardiovascular: Regular rate, Regular Rhythm, Normal S1, Normal S2, No murmurs, PMI Normal, No rub noted, No Gallop Abdomen: Bowel Sounds Present, Soft, Non Tender, Non-Distended Extremities: No clubbing, No cyanosis, No edema, Capillary Refill Less than 3 Seconds Skin: No rashes, No breakdown Musculoskeletal: No Tenderness to Palpation of Joints or Extremities Neurological: Cranial nerves II-XII grossly intact, Neuro grossly intact, Sensory exam intact to light touch and pain Psych/Mental Status: Normal Affect, Appropriate, Alert and oriented to time, place, person, mood and affect - Physical Exam Vitals/I&O's: Vital Signs Temp Pulse Resp BP Pulse Ox 99.2 F H 101 H 18 120/81 H 96 08/15/20 08:30 08/15/20 08:30 08/15/20 08:30 08/15/20 08:30 08/15/20 08:30 Oxygen Flow Rate (L/min) 4 Oxygen Delivery Method Nasal Cannula Weight: 73.7 kg Body Mass Index (BMI) 36.2 Intake and Output for Last 24 Hours 08/13/20 08/14/20 08/15/20 23:59 23:59 23:59 Intake Total 1390 / 1510 1560 / 1560 Balance 1390 / 1510 1560 / 1560 Microbiology Past 72 Hours 08/12/20 12:33 Blood Culture (Wb) - Left Hand Blood Culture - Preliminary No growth in 48 hours. 08/12/20 12:33 Blood Culture (Wb) - Anticubital Right Blood Culture - Preliminary No growth in 48 hours. Laboratory Results 08/12/20 17:28: CK Isoenzymes 53, CK-MM (CK-3) 100, CK-MB (CK-2) 0, CK-BB (CK-1) 0, Macro CK Type I 0, Macro CK Type II 0 08/15/20 06:52: WBC 6.4, RBC 3.30 L, Hgb 10.0 L, Hct 32.6 L, MCV 98.8, MCH 30.3, MCHC 30.7 L, RDW Std Deviation 52.8 H, RDW Coeff of Noe 14.5, Plt Count 191, MPV 9.2 08/15/20 06:52: Sodium 139, Potassium 3.4 L, Chloride 104, Carbon Dioxide 30.0, Anion Gap 5, BUN 26 H, Creatinine 0.99, Estim Creat Clear Calc 72.95, Est GFR (MDRD) Af Amer 75, Est GFR (MDRD) Non-Af 62, BUN/Creatinine Ratio 26.4 H, Glucose 122 H, Calcium 8.0 L, Total Bilirubin 0.30, AST 18, ALT 21, Alkaline Phosphatase 59, Total Protein 5.8 L, Albumin 2.7 L, Globulin 3.1, Albumin/Globulin Ratio 0.9 Current Medications Acetaminophen (Acetaminophen 325 Mg Tablet) 650 mg PO Q6H PRN PRN PRN Reason: Pain Score 1-10/Temp > 100.7 F Al Hydroxide/Mg Hydroxide (Mag Hydrox/Al Hydrox/Simeth 30 Ml Udc) 30 ml PO Q6H PRN PRN PRN Reason: Gastric Burning Albuterol Sulfate (Albuterol 2.5 Mg/3 Ml Vial.Neb.) 2.5 mg INHALATION Q2H PRN PRN PRN Reason: Shortness of Breath/Wheezing Last Admin: 08/14/20 07:42 Dose: 2.5 mg Documented by: Albuterol/Ipratropium (Ipratropium/Albuterol Sulfate 3 Ml Ampul.Neb) 3 ml INHALATION Q6H PRN PRN Reason: wheezing Last Admin: 08/14/20 19:43 Dose: 3 ml Documented by: Alprazolam (Alprazolam 0.5 Mg Tablet) 0.5 mg PO TID [facility] Last Admin: 08/15/20 05:47 Dose: 0.5 mg Documented by: Azelastine HCl (Azelastine Hcl Nasal.Sry) 1 spray NASAL BID [facility] Last Admin: 08/14/20 20:46 Dose: Not Given Documented by: Buspirone HCl (Buspirone 5 Mg Tablet) 10 mg PO TID [facility] Last Admin: 08/15/20 05:47 Dose: 10 mg Documented by: Dexamethasone (Dexamethasone 4 Mg Tablet) 6 mg PO DAILY@0800 [facility] Stop: 08/23/20 08:01 Last Admin: 08/14/20 09:14 Dose: 6 mg Documented by: Diltiazem HCl (Diltiazem Cd 240 Mg Capsule) 240 mg PO DAILY [facility] Last Admin: 08/14/20 09:15 Dose: 240 mg Documented by: Enoxaparin Sodium (Enoxaparin 40 Mg/0.4 Ml Syringe) 40 mg SC BID [facility] Last Admin: 08/14/20 20:34 Dose: 40 mg Documented by: Fluticasone Propionate (Fluticasone 0.05% 1 [place] Nasal.Sry) 2 spray NASAL DAILY [facility] Last Admin: 08/14/20 09:16 Dose: Not Given Documented by: Remdesivir 100 mg/ Sodium (Chloride) 250 mls @ 125 mls/hr IV DAILY [facility]; Protocol Stop: 08/17/20 11:59 Last Infusion: 08/14/20 13:06 Dose: Infused Documented by: Potassium Chloride () 10 meq in 100 mls @ 100 mls/hr IV BOLUS Q1H [facility] Stop: 08/15/20 12:59 Imatinib Mesylate (Imatinib Mesylate 400 Mg Tablet) 400 mg PO DAILY@1600 [facility] Last Admin: 08/14/20 16:54 Dose: 400 mg Documented by: Melatonin (Melatonin 3 Mg Tablet) 3 mg PO QHS PRN PRN PRN Reason: INSOMNIA Oxycodone HCl (Oxycodone 5 Mg Tablet) 10 mg PO Q6H PRN PRN PRN Reason: Pain Score 1-10 Last Admin: 08/14/20 21:48 Dose: 10 mg Documented by: Pantoprazole Sodium (Pantoprazole Sodium 40 Mg Tablet) 40 mg PO DAILY [facility] Last Admin: 08/14/20 09:15 Dose: 40 mg Documented by: Prochlorperazine Maleate (Prochlorperazine 5 Mg Tablet) 10 mg PO Q6H PRN PRN Reason: NAUSEA Last Admin: 08/14/20 12:01 Dose: 10 mg Documented by: Senna/Docusate Sodium (Senna/Docusate Sodium 1 Tablet) 2 tablet PO BID PRN PRN PRN Reason: Constipation Sertraline HCl (Sertraline 50 Mg Tablet) 25 mg PO DAILY [facility] Last Admin: 08/14/20 09:15 Dose: 25 mg Documented by: Sertraline HCl (Sertraline 50 Mg Tablet) 50 mg PO DAILY [facility] Last Admin: 08/14/20 09:15 Dose: 50 mg Documented by: Sodium Chloride (0.9% Saline Lock 10 Ml Syringe) 10 - 40 ml IV UD PRN PRN Reason: SALINE FLUSH Last Admin: 08/14/20 13:06 Dose: 10 ml Documented by: Throat Lozenges (Benzocaine/Menthol 1 Lozenge) 1 lozenge MUCOUS MEM Q2H PRN PRN PRN Reason: SORE THROAT Medical Necessity - Tobacco Use Smoking Status: Former smoker Tobacco Use: Cigarettes Assessment/Plan All Active Problems (Last Reviewed 08/12/20 @ 18:[address] Shaila Mims, DO) Pneumonia (Acute) COVID-19 (Acute) #1 COVID-19 pneumonia-continue treatment per infectious diseases and pulmonary medicine #2 hypoxic respiratory failure-acute on chronic-patient's oxygen requirement has increased from her home oxygen requirement-currently she is on 5 L via nasal cannula, pulse ox will be monitored, she will be given aerosol treatments #3 chronic obstructive pulmonary disease #4 chronic myelocytic leukemia #5 chronic depression Inpatient E&M: 33051 [facility] Hosp L2
[2020-08-15] MEDS: Sertraline 50 MG Tablet 25 MG PO (09:24)
[2020-08-15] MEDS: oxyCODONE 5 MG Tablet 10 MG PO ×2 (09:29→16:23)
[2020-08-15] MEDS: 0.9% Saline Lock 10 ML Syringe IV (09:30)
--- NOTE | 2020-08-15 10:41 | NURSING ---
BUZZ W/PRABHAKAR MADE AWARE THAT PT IS REQUESTING BREATHING TX
--- NOTE | 2020-08-15 10:41 | NURSING ---
CALLED BUZZ W/CPS TO REMIND HIM PT IS STILL REQUESTING BREATHING TX
[2020-08-15] MEDS: Albuterol 2.5 MG/3 ML VIAL.NEB. INHALATION (10:49)
[2020-08-15] MEDS: Ipratropium/Albuterol Sulfate 3 ML AMPUL.NEB INHALATION ×2 (13:11→19:37)
[2020-08-15] MEDS: MELATONIN 3 MG TABLET PO (21:50)
[2020-08-16] VITALS (14 sets, daily range): BP systolic 118–130; BP diastolic 76–82; PULSE 76–103; RESP 18–24; TEMP 37.1–37.3; O2SAT 94–98
[2020-08-16] MEDS: Ipratropium/Albuterol Sulfate 3 ML AMPUL.NEB INHALATION ×4 (01:53→19:39)
[2020-08-16 06:16] LABS: Hematocrit 29.5 % (37-47); Hemoglobin 9.3 g/dL (12.0-15.0); Mean Corp Hgb Conc 31.5 g/dL (32-36); Mean Corpuscular Hgb 31.1 pg (27.0-32.0); Mean Corpuscular Volume 98.7 fL (81-99); Mean Platelet Vol. 9.4 fl (6.2-12.0); Platelet Count 176 K/mm3 (150-450); RBC Distribution Width CV 14.6 % (11.6-14.6); RBC Distribution Width SD 52.7 fl (35.1-43.9); Red Blood Count 2.99 M/mm3 (4.2-5.4); White Blood Count 7.5 K/mm3 (4.4-11.0)
[2020-08-16] MEDS: busPIRone 5 MG Tablet 10 MG PO ×3 (06:17→19:54)
[2020-08-16] MEDS: ALPRAZolam 0.5 MG Tablet PO ×3 (06:17→19:54)
[2020-08-16] MEDS: proCHLORPERazine 5 MG Tablet 10 MG PO (06:23)
[2020-08-16 06:42] LABS: ALB/GLOB Ratio 0.8 RATIO (0.9-2.4); AST(SGOT) 14 U/L (15-37); Alanine Aminotransfer ALT/SGPT 20 U/L (13-56); Albumin, Serum 2.4 g/dL (3.2-5.0); Alkaline Phosphatase 57 U/L (45-117); Anion Gap 6 (5-15); BUN 23 mg/dL (7-18); BUN/Creat Ratio 29.6 RATIO (10-20); Calcium,Total 7.9 mg/dL (8.5-10.1); Chloride 104 mmol/L (98-107); Creatinine, Serum 0.78 mg/dL (0.55-1.02); EST Glomerular Filtration Rate 81 mL/min (>60); Est Glom Filt Rate - Afr Amer 98 mL/min (>60); Estimated Creatinine Clearance 94.47 ml/min; Globulin 2.9 g/dL (2.2-4.2); Glucose 219 mg/dL (74-106); Potassium 3.2 mmol/L (3.5-5.1); Protein, Total 5.3 g/dL (6.4-8.2); Sodium Level 140 mmol/L (136-145)
[2020-08-16] MEDS: dexAMETHasone 4 MG Tablet 6 MG PO (07:44)
--- NOTE | 2020-08-16 08:21 | PN_ITS ---
Patient Problems: Active and Suspected Problems (Last Reviewed 08/12/20 @ 18:[address] Shaila Mims, DO) Pneumonia (Acute) COVID-19 (Acute) Subjective: Patient was seen and examined today, she gets her last dose of remdesivir today, she does not complain of any fevers or chills today and she does not complain of any increased shortness of breath. Patient states I do not feel well today Objective: General: Alert, Oriented x3, Cooperative, No apparent distress, Well developed, Well nourished HEENT: Atraumatic, PERRLA, EOMI, Normocephalic Oral: Moist Mucosa Neck: Supple, No JVD, Trachea Midline, Thyroid Normal Size and Texture Lungs: Normal air movement, Wheezes - Expiratory wheezes are noted bilaterally Cardiovascular: Regular rate, Regular Rhythm, Normal S1, Normal S2, No murmurs, PMI Normal, No rub noted, No Gallop Abdomen: Bowel Sounds Present, Soft, Non Tender, Non-Distended Extremities: No clubbing, No cyanosis, No edema, Capillary Refill Less than 3 Seconds Skin: No rashes, No breakdown Musculoskeletal: No Tenderness to Palpation of Joints or Extremities Neurological: Cranial nerves II-XII grossly intact, Neuro grossly intact, Sensory exam intact to light touch and pain Psych/Mental Status: Normal Affect, Appropriate, Alert and oriented to time, place, person, mood and affect - Physical Exam Vitals/I&O's: Vital Signs Temp Pulse Resp BP Pulse Ox 99.0 F 99 20 H 130/82 H 95 08/16/20 07:42 08/16/20 07:42 08/16/20 07:42 08/16/20 07:42 08/16/20 07:42 Oxygen Flow Rate (L/min) 4 Oxygen Delivery Method Nasal Cannula Weight: 75.2 kg Body Mass Index (BMI) 36.2 Intake and Output for Last 24 Hours 08/14/20 08/15/20 08/16/20 23:59 23:59 23:59 Intake Total 1560 / 1560 1370 / 1370 Balance 1560 / 1560 1370 / 1370 Microbiology Past 72 Hours 08/12/20 12:33 Blood Culture (Wb) - Left Hand Blood Culture - Preliminary No growth in 48 hours. 08/12/20 12:33 Blood Culture (Wb) - Anticubital Right Blood Culture - Preliminary No growth in 48 hours. Laboratory Results 08/16/20 05:40: WBC 7.5, RBC 2.99 L, Hgb 9.3 L, Hct 29.5 L, MCV 98.7, MCH 31.1, MCHC 31.5 L, RDW Std Deviation 52.7 H, RDW Coeff of Noe 14.6, Plt Count 176, MPV 9.4 08/16/20 05:40: Sodium 140, Potassium 3.2 L, Chloride 104, Carbon Dioxide 30.0, Anion Gap 6, BUN 23 H, Creatinine 0.78, Estim Creat Clear Calc 94.47, Est GFR (MDRD) Af Amer 98, Est GFR (MDRD) Non-Af 81, BUN/Creatinine Ratio 29.6 H, Glucose 219 H, Calcium 7.9 L, Total Bilirubin 0.30, AST 14 L, ALT 20, Alkaline Phosphatase 57, Total Protein 5.3 L, Albumin 2.4 L, Globulin 2.9, Albumin/Globulin Ratio 0.8 L Current Medications Acetaminophen (Acetaminophen 325 Mg Tablet) 650 mg PO Q6H PRN PRN PRN Reason: Pain Score 1-10/Temp > 100.7 F Al Hydroxide/Mg Hydroxide (Mag Hydrox/Al Hydrox/Simeth 30 Ml Udc) 30 ml PO Q6H PRN PRN PRN Reason: Gastric Burning Albuterol Sulfate (Albuterol 2.5 Mg/3 Ml Vial.Neb.) 2.5 mg INHALATION Q2H PRN PRN PRN Reason: Shortness of Breath/Wheezing Last Admin: 08/15/20 10:49 Dose: 2.5 mg Documented by: Albuterol/Ipratropium (Ipratropium/Albuterol Sulfate 3 Ml Ampul.Neb) 3 ml INHALATION Q6H.RT [facility] Last Admin: 08/16/20 07:32 Dose: 3 ml Documented by: Alprazolam (Alprazolam 0.5 Mg Tablet) 0.5 mg PO TID [facility] Last Admin: 08/16/20 06:17 Dose: 0.5 mg Documented by: Azelastine HCl (Azelastine Hcl Nasal.Sry) 1 spray NASAL BID [facility] Last Admin: 08/15/20 19:28 Dose: Not Given Documented by: Buspirone HCl (Buspirone 5 Mg Tablet) 10 mg PO TID [facility] Last Admin: 08/16/20 06:17 Dose: 10 mg Documented by: Dexamethasone (Dexamethasone 4 Mg Tablet) 6 mg PO DAILY@0800 [facility] Stop: 08/23/20 08:01 Last Admin: 08/16/20 07:44 Dose: 6 mg Documented by: Diltiazem HCl (Diltiazem Cd 240 Mg Capsule) 240 mg PO DAILY [facility] Last Admin: 08/15/20 09:17 Dose: 240 mg Documented by: Enoxaparin Sodium (Enoxaparin 40 Mg/0.4 Ml Syringe) 40 mg SC BID [facility] Last Admin: 08/15/20 21:50 Dose: 40 mg Documented by: Fluticasone Propionate (Fluticasone 0.05% 1 [place] Nasal.Sry) 2 spray NASAL DAILY [facility] Last Admin: 08/15/20 09:17 Dose: Not Given Documented by: Remdesivir 100 mg/ Sodium (Chloride) 250 mls @ 125 mls/hr IV DAILY [facility]; Protocol Stop: 08/17/20 11:59 Last Infusion: 08/15/20 11:40 Dose: Infused Documented by: Imatinib Mesylate (Imatinib Mesylate 400 Mg Tablet) 400 mg PO DAILY@1600 [facility] Last Admin: 08/15/20 16:23 Dose: 400 mg Documented by: Melatonin (Melatonin 3 Mg Tablet) 3 mg PO QHS PRN PRN PRN Reason: INSOMNIA Last Admin: 08/15/20 21:50 Dose: 3 mg Documented by: Oxycodone HCl (Oxycodone 5 Mg Tablet) 10 mg PO Q6H PRN PRN PRN Reason: Pain Score 1-10 Last Admin: 08/15/20 16:23 Dose: 10 mg Documented by: Pantoprazole Sodium (Pantoprazole Sodium 40 Mg Tablet) 40 mg PO DAILY [facility] Last Admin: 08/15/20 09:18 Dose: 40 mg Documented by: Prochlorperazine Maleate (Prochlorperazine 5 Mg Tablet) 10 mg PO Q6H PRN PRN Reason: NAUSEA Last Admin: 08/16/20 06:23 Dose: 10 mg Documented by: Senna/Docusate Sodium (Senna/Docusate Sodium 1 Tablet) 2 tablet PO BID PRN PRN PRN Reason: Constipation Sertraline HCl (Sertraline 50 Mg Tablet) 25 mg PO DAILY [facility] Last Admin: 08/15/20 09:24 Dose: 25 mg Documented by: Sertraline HCl (Sertraline 50 Mg Tablet) 50 mg PO DAILY [facility] Last Admin: 08/15/20 09:18 Dose: 50 mg Documented by: Sodium Chloride (0.9% Saline Lock 10 Ml Syringe) 10 - 40 ml IV UD PRN PRN Reason: SALINE FLUSH Last Admin: 08/15/20 09:30 Dose: 10 ml Documented by: Throat Lozenges (Benzocaine/Menthol 1 Lozenge) 1 lozenge MUCOUS MEM Q2H PRN PRN PRN Reason: SORE THROAT Medical Necessity - Tobacco Use Smoking Status: Former smoker Tobacco Use: Cigarettes Assessment/Plan All Active Problems (Last Reviewed 08/12/20 @ 18:[address] Shiala Mims, DO) Pneumonia (Acute) COVID-19 (Acute) #1 COVID-19 pneumonia-continue treatment per infectious diseases and pulmonary medicine, I will discussed the case with pulmonary medicine-since the patient's on her home O2 requirement, she might be able to be discharged soon as the remdesivir is being stopped after today. #2 hypoxic respiratory failure-acute on chronic-patient's oxygen requirement has increased from her home oxygen requirement-currently she is on 4 L via nasal cannula, pulse ox will be monitored, she will be given aerosol treatments #3 chronic obstructive pulmonary disease #4 chronic myelocytic leukemia #5 chronic depression Inpatient E&M: 76348 Subs Hosp L2
[2020-08-16] MEDS: Azelastine HCl NASAL.SRY 1 SPRAY NASAL ×2 (10:19→19:53)
[2020-08-16] MEDS: dilTIAZem CD 240 MG Capsule PO (10:20)
[2020-08-16] MEDS: Fluticasone 0.05% 1 SPRAY NASAL.SRY 2 SPRAY NASAL (10:21)
[2020-08-16] MEDS: Enoxaparin 40 MG/0.4 ML Syringe SC ×2 (10:22→19:54)
[2020-08-16] MEDS: Pantoprazole Sodium 40 MG Tablet PO (10:22)
[2020-08-16] MEDS: Sertraline 50 MG Tablet PO (10:24)
[2020-08-16] MEDS: Sertraline 50 MG Tablet 25 MG PO (10:24)
[2020-08-16] MEDS: oxyCODONE 5 MG Tablet 10 MG PO ×2 (10:34→19:59)
--- NOTE | 2020-08-16 15:30 | PN_ITS ---
Patient Problems: Active and Suspected Problems (Last Reviewed 08/12/20 @ 18:[address] Shaila Mims, DO) Pneumonia (Acute) COVID-19 (Acute) Subjective: Patient did well overnight. Patient overall feels subjectively the same as yesterday. Patient still has some coughing, but has been maintaining on regular supplemental oxygen. Patient is reporting a burning type sensation in the middle of her chest that has been present throughout her infection. - Physical Exam Vitals/I&O's: Vital Signs Temp Pulse Resp BP Pulse Ox 37.2 C 98 18 118/76 97 08/16/20 13:52 08/16/20 14:05 08/16/20 13:59 08/16/20 13:52 08/16/20 13:59 Oxygen Flow Rate (L/min) 4 Oxygen Delivery Method Nasal Cannula Weight: 75.2 kg Body Mass Index (BMI) 36.2 Intake and Output for Last 24 Hours 08/14/20 08/15/20 08/16/20 23:59 23:59 23:59 Intake Total 1560 / 1560 1370 / 1370 Balance 1560 / 1560 1370 / 1370 General: Alert, Oriented x3, Cooperative, - - Anxious. Appears older than stated age. Obese. HEENT: Atraumatic, PERRLA, EOMI, Normocephalic, - - Scleral injection without icterus Oral: Moist Mucosa, No Gingival or Mucosal Lesions/ Ulcerations Neck: Supple, No JVD, No Nodes, Trachea Midline Lungs: No rhonchi, No wheeze, No rales, Diminished, - - Symmetric expansion. Cardiovascular: Regular rate, Regular Rhythm, Normal S1, Normal S2, No murmurs, No rub noted, No Gallop Abdomen: Bowel Sounds Present, Soft, Non Tender, Non-Distended, Obese Extremities: No cyanosis, Clubbing, Edema Skin: No rashes, No breakdown, - - Dermal atrophy noted Musculoskeletal: No Tenderness to Palpation of Joints or Extremities Lymphatic: No Cervical, Supraclavicular, or Inguinal Adenopathy Neurological: Cranial nerves II-XII grossly intact, Neuro grossly intact, Motor Exam 5/5 strength throughout Psych/Mental Status: Anxious, Restless Microbiology Past 72 Hours 08/12/20 12:33 Blood Culture (Wb) - Left Hand Blood Culture - Preliminary No growth in 48 hours. 08/12/20 12:33 Blood Culture (Wb) - Anticubital Right Blood Culture - Preliminary No growth in 48 hours. Laboratory Results 08/16/20 05:40: WBC 7.5, RBC 2.99 L, Hgb 9.3 L, Hct 29.5 L, MCV 98.7, MCH 31.1, MCHC 31.5 L, RDW Std Deviation 52.7 H, RDW Coeff of Noe 14.6, Plt Count 176, MPV 9.4 08/16/20 05:40: Sodium 140, Potassium 3.2 L, Chloride 104, Carbon Dioxide 30.0, Anion Gap 6, BUN 23 H, Creatinine 0.78, Estim Creat Clear Calc 94.47, Est GFR (MDRD) Af Amer 98, Est GFR (MDRD) Non-Af 81, BUN/Creatinine Ratio 29.6 H, Glucose 219 H, Calcium 7.9 L, Total Bilirubin 0.30, AST 14 L, ALT 20, Alkaline Phosphatase 57, Total Protein 5.3 L, Albumin 2.4 L, Globulin 2.9, Albumin/Globulin Ratio 0.8 L Current Medications Acetaminophen (Acetaminophen 325 Mg Tablet) 650 mg PO Q6H PRN PRN PRN Reason: Pain Score 1-10/Temp > 100.7 F Al Hydroxide/Mg Hydroxide (Mag Hydrox/Al Hydrox/Simeth 30 Ml Udc) 30 ml PO Q6H PRN PRN PRN Reason: Gastric Burning Albuterol Sulfate (Albuterol 2.5 Mg/3 Ml Vial.Neb.) 2.5 mg INHALATION Q2H PRN PRN PRN Reason: Shortness of Breath/Wheezing Last Admin: 08/15/20 10:49 Dose: 2.5 mg Documented by: Albuterol/Ipratropium (Ipratropium/Albuterol Sulfate 3 Ml Ampul.Neb) 3 ml INHALATION Q6H.RT [facility] Last Admin: 08/16/20 13:59 Dose: 3 ml Documented by: Alprazolam (Alprazolam 0.5 Mg Tablet) 0.5 mg PO TID [facility] Last Admin: 08/16/20 13:55 Dose: 0.5 mg Documented by: Azelastine HCl (Azelastine Hcl Nasal.Sry) 1 spray NASAL BID [facility] Last Admin: 08/16/20 10:19 Dose: 1 spray Documented by: Buspirone HCl (Buspirone 5 Mg Tablet) 10 mg PO TID [facility] Last Admin: 08/16/20 13:54 Dose: 10 mg Documented by: Dexamethasone (Dexamethasone 4 Mg Tablet) 6 mg PO DAILY@0800 [facility] Stop: 08/23/20 08:01 Last Admin: 08/16/20 07:44 Dose: 6 mg Documented by: Diltiazem HCl (Diltiazem Cd 240 Mg Capsule) 240 mg PO DAILY [facility] Last Admin: 08/16/20 10:20 Dose: 240 mg Documented by: Enoxaparin Sodium (Enoxaparin 40 Mg/0.4 Ml Syringe) 40 mg SC BID [facility] Last Admin: 08/16/20 10:22 Dose: 40 mg Documented by: Fluticasone Propionate (Fluticasone 0.05% 1 [place] Nasal.Sry) 2 spray NASAL DAILY [facility] Last Admin: 08/16/20 10:21 Dose: 2 spray Documented by: Remdesivir 100 mg/ Sodium (Chloride) 250 mls @ 125 mls/hr IV DAILY [facility]; Protocol Stop: 08/17/20 11:59 Last Admin: 08/16/20 10:23 Dose: 125 mls/hr Documented by: Imatinib Mesylate (Imatinib Mesylate 400 Mg Tablet) 400 mg PO DAILY@1600 [facility] Last Admin: 08/15/20 16:23 Dose: 400 mg Documented by: Melatonin (Melatonin 3 Mg Tablet) 3 mg PO QHS PRN PRN PRN Reason: INSOMNIA Last Admin: 08/15/20 21:50 Dose: 3 mg Documented by: Oxycodone HCl (Oxycodone 5 Mg Tablet) 10 mg PO Q6H PRN PRN PRN Reason: Pain Score 1-10 Last Admin: 08/16/20 10:34 Dose: 10 mg Documented by: Pantoprazole Sodium (Pantoprazole Sodium 40 Mg Tablet) 40 mg PO DAILY [facility] Last Admin: 08/16/20 10:22 Dose: 40 mg Documented by: Prochlorperazine Maleate (Prochlorperazine 5 Mg Tablet) 10 mg PO Q6H PRN PRN Reason: NAUSEA Last Admin: 08/16/20 06:23 Dose: 10 mg Documented by: Senna/Docusate Sodium (Senna/Docusate Sodium 1 Tablet) 2 tablet PO BID PRN PRN PRN Reason: Constipation Sertraline HCl (Sertraline 50 Mg Tablet) 25 mg PO DAILY [facility] Last Admin: 08/16/20 10:24 Dose: 25 mg Documented by: Sertraline HCl (Sertraline 50 Mg Tablet) 50 mg PO DAILY [facility] Last Admin: 08/16/20 10:24 Dose: 50 mg Documented by: Sodium Chloride (0.9% Saline Lock 10 Ml Syringe) 10 - 40 ml IV UD PRN PRN Reason: SALINE FLUSH Last Admin: 08/15/20 09:30 Dose: 10 ml Documented by: Throat Lozenges (Benzocaine/Menthol 1 Lozenge) 1 lozenge MUCOUS MEM Q2H PRN PRN PRN Reason: SORE THROAT Medical Necessity - Tobacco Use Smoking Status: Former smoker Tobacco Use: Cigarettes Assessment/Plan All Active Problems (Last Reviewed 08/12/20 @ 18:[address] Shaila Mims, DO) Pneumonia (Acute) COVID-19 (Acute) RECOMMENDATIONS: 1. Wean supplemental oxygen to maintain saturations at or above 90%. 2. Continue bronchodilator therapy as ordered. 3. Continue Decadron 6 mg daily. 4. Continue remdesivir and monitor liver and renal function closely. 5. Potassium repletion as ordered. IMPRESSIONS: 1. Acute on chronic hypoxemic respiratory failure secondary to COVID-19 pneumonia The patient has advanced age COPD and chronic hypoxemic respiratory failure with a baseline 4 L/min oxygen requirement, along with CML. She has been symptomatic now for approximately 1 week after having tested positive on August 06. The patient did refuse convalescent plasma. However, she was started on remdesivir and Decadron. We will continue to monitor liver and renal function accordingly. Appears to be tolerating well. Continue to wean supplemental oxygen as tolerated. Continue scheduled bronchodilators as ordered. 2. Hypokalemia Electrolyte repletion as ordered. Recheck levels in the morning. 3. History of CML/obesity/depression/anxiety/GERD Complicates care, management, recovery and prognosis. Continue home med ications as indicated. Inpatient E&M: 74017 Subs Hosp L2
--- NOTE | 2020-08-16 17:00 | PN.ID_ITS ---
Patient Problems: Active and Suspected Problems (Last Reviewed 08/12/20 @ 18:[address] Shaila Mims, DO) Pneumonia (Acute) COVID-19 (Acute) Subjective: Feeling a little better, diarrhea improved. No fever. - Physical Exam Vitals/I&O's: Vital Signs Temp Pulse Resp BP Pulse Ox 98.9 F 98 18 118/76 97 08/16/20 13:52 08/16/20 14:05 08/16/20 13:59 08/16/20 13:52 08/16/20 13:59 Oxygen Flow Rate (L/min) 4 Oxygen Delivery Method Nasal Cannula Weight: 75.2 kg Body Mass Index (BMI) 36.2 Intake and Output for Last 24 Hours 08/14/20 08/15/20 08/16/20 23:59 23:59 23:59 Intake Total 1560 / 1560 1370 / 1370 250 / 250 Balance 1560 / 1560 1370 / 1370 250 / 250 General: Alert, Cooperative, No apparent distress Lungs: Diminished, Wheezes Cardiovascular: Regular rate, Regular Rhythm Abdomen: Soft, Non Tender, Non-Distended Skin: No rashes Microbiology Past 72 Hours 08/12/20 12:33 Blood Culture (Wb) - Left Hand Blood Culture - Preliminary No growth in 48 hours. 08/12/20 12:33 Blood Culture (Wb) - Anticubital Right Blood Culture - Preliminary No growth in 48 hours. Laboratory Results 08/16/20 05:40: WBC 7.5, RBC 2.99 L, Hgb 9.3 L, Hct 29.5 L, MCV 98.7, MCH 31.1, MCHC 31.5 L, RDW Std Deviation 52.7 H, RDW Coeff of Noe 14.6, Plt Count 176, MPV 9.4 08/16/20 05:40: Sodium 140, Potassium 3.2 L, Chloride 104, Carbon Dioxide 30.0, Anion Gap 6, BUN 23 H, Creatinine 0.78, Estim Creat Clear Calc 94.47, Est GFR (MDRD) Af Amer 98, Est GFR (MDRD) Non-Af 81, BUN/Creatinine Ratio 29.6 H, Glucose 219 H, Calcium 7.9 L, Total Bilirubin 0.30, AST 14 L, ALT 20, Alkaline Phosphatase 57, Total Protein 5.3 L, Albumin 2.4 L, Globulin 2.9, Albumin/ Globulin Ratio 0.8 L Current Medications Acetaminophen (Acetaminophen 325 Mg Tablet) 650 mg PO Q6H PRN PRN PRN Reason: Pain Score 1-10/Temp > 100.7 F Al Hydroxide/Mg Hydroxide (Mag Hydrox/Al Hydrox/Simeth 30 Ml Udc) 30 ml PO Q6H PRN PRN PRN Reason: Gastric Burning Albuterol Sulfate (Albuterol 2.5 Mg/3 Ml Vial.Neb.) 2.5 mg INHALATION Q2H PRN PRN PRN Reason: Shortness of Breath/Wheezing Last Admin: 08/15/20 10:49 Dose: 2.5 mg Documented by: Albuterol/Ipratropium (Ipratropium/Albuterol Sulfate 3 Ml Ampul.Neb) 3 ml INHALATION Q6H.RT [facility] Last Admin: 08/16/20 13:59 Dose: 3 ml Documented by: Alprazolam (Alprazolam 0.5 Mg Tablet) 0.5 mg PO TID [facility] Last Admin: 08/16/20 13:55 Dose: 0.5 mg Documented by: Azelastine HCl (Azelastine Hcl Nasal.Sry) 1 spray NASAL BID [facility] Last Admin: 08/16/20 10:19 Dose: 1 spray Documented by: Buspirone HCl (Buspirone 5 Mg Tablet) 10 mg PO TID [facility] Last Admin: 08/16/20 13:54 Dose: 10 mg Documented by: Dexamethasone (Dexamethasone 4 Mg Tablet) 6 mg PO DAILY@0800 [facility] Stop: 08/23/20 08:01 Last Admin: 08/16/20 07:44 Dose: 6 mg Documented by: Diltiazem HCl (Diltiazem Cd 240 Mg Capsule) 240 mg PO DAILY [facility] Last Admin: 08/16/20 10:20 Dose: 240 mg Documented by: Enoxaparin Sodium (Enoxaparin 40 Mg/0.4 Ml Syringe) 40 mg SC BID [facility] Last Admin: 08/16/20 10:22 Dose: 40 mg Documented by: Fluticasone Propionate (Fluticasone 0.05% 1 [place] Nasal.Sry) 2 spray NASAL DAILY [facility] Last Admin: 08/16/20 10:21 Dose: 2 spray Documented by: Remdesivir 100 mg/ Sodium (Chloride) 250 mls @ 125 mls/hr IV DAILY [facility]; Protocol Stop: 08/17/20 11:59 Last Infusion: 08/16/20 12:25 Dose: Infused Documented by: Imatinib Mesylate (Imatinib Mesylate 400 Mg Tablet) 400 mg PO DAILY@1600 [facility] Last Admin: 08/16/20 16:53 Dose: 400 mg Documented by: Melatonin (Melatonin 3 Mg Tablet) 3 mg PO QHS PRN PRN PRN Reason: INSOMNIA Last Admin: 08/15/20 21:50 Dose: 3 mg Documented by: Oxycodone HCl (Oxycodone 5 Mg Tablet) 10 mg PO Q6H PRN PRN PRN Reason: Pain Score 1-10 Last Admin: 08/16/20 10:34 Dose: 10 mg Documented by: Pantoprazole Sodium (Pantoprazole Sodium 40 Mg Tablet) 40 mg PO DAILY [facility] Last Admin: 08/16/20 10:22 Dose: 40 mg Documented by: Potassium Chloride (Potassium Chloride 20 Meq Tablet) 20 meq PO BIDCM [facility] Stop: 08/17/20 08:01 Last Admin: 08/16/20 16:53 Dose: 20 meq Documented by: Prochlorperazine Maleate (Prochlorperazine 5 Mg Tablet) 10 mg PO Q6H PRN PRN Reason: NAUSEA Last Admin: 08/16/20 06:23 Dose: 10 mg Documented by: Senna/Docusate Sodium (Senna/Docusate Sodium 1 Tablet) 2 tablet PO BID PRN PRN PRN Reason: Constipation Sertraline HCl (Sertraline 50 Mg Tablet) 25 mg PO DAILY [facility] Last Admin: 08/16/20 10:24 Dose: 25 mg Documented by: Sertraline HCl (Sertraline 50 Mg Tablet) 50 mg PO DAILY [facility] Last Admin: 08/16/20 10:24 Dose: 50 mg Documented by: Sodium Chloride (0.9% Saline Lock 10 Ml Syringe) 10 - 40 ml IV UD PRN PRN Reason: SALINE FLUSH Last Admin: 08/15/20 09:30 Dose: 10 ml Documented by: Throat Lozenges (Benzocaine/Menthol 1 Lozenge) 1 lozenge MUCOUS MEM Q2H PRN PRN PRN Reason: SORE THROAT Medical Necessity - Tobacco Use Smoking Status: Former smoker Tobacco Use: Cigarettes Route of nutrition/ use of supplements: [] Nutritional Intake: [] IV Site: [] Jacobson Catheter: [] - Assessment/Plan Antibiotics: [] Assessment/Plan: [] Active and Suspected Problems (Last Reviewed 08/12/20 @ 18:[address] Shaila Mims, DO) Pneumonia (Acute) COVID-19 (Acute) Covid with acute on chronic hypoxia - on dex, remdesivir. No fever, on 4L. Will follow
[2020-08-16] MEDS: MELATONIN 3 MG TABLET PO (19:55)
[2020-08-17] VITALS (17 sets, daily range): BP systolic 112–136; BP diastolic 70–82; PULSE 79–104; RESP 18–20; TEMP 36.9–37.3; O2SAT 87–99
[2020-08-17] MEDS: Ipratropium/Albuterol Sulfate 3 ML AMPUL.NEB INHALATION ×4 (01:24→18:52)
[2020-08-17] MEDS: busPIRone 5 MG Tablet 10 MG PO ×3 (05:45→21:46)
[2020-08-17] MEDS: ALPRAZolam 0.5 MG Tablet PO ×3 (05:45→21:45)
[2020-08-17 05:53] LABS: Hematocrit 32.6 % (37-47); Hemoglobin 10.1 g/dL (12.0-15.0); Mean Corpuscular Hgb 30.5 pg (27.0-32.0); Mean Corpuscular Volume 98.5 fL (81-99); Mean Platelet Vol. 9.5 fl (6.2-12.0); Platelet Count 211 K/mm3 (150-450); RBC Distribution Width CV 14.4 % (11.6-14.6); RBC Distribution Width SD 52.1 fl (35.1-43.9); Red Blood Count 3.31 M/mm3 (4.2-5.4); White Blood Count 9.2 K/mm3 (4.4-11.0)
[2020-08-17 06:27] LABS: ALB/GLOB Ratio 0.9 RATIO (0.9-2.4); AST(SGOT) 11 U/L (15-37); Alanine Aminotransfer ALT/SGPT 20 U/L (13-56); Albumin, Serum 2.7 g/dL (3.2-5.0); Alkaline Phosphatase 60 U/L (45-117); Anion Gap 5 (5-15); BUN 21 mg/dL (7-18); Calcium,Total 8.1 mg/dL (8.5-10.1); Chloride 104 mmol/L (98-107); Creatinine, Serum 0.84 mg/dL (0.55-1.02); EST Glomerular Filtration Rate 74 mL/min (>60); Est Glom Filt Rate - Afr Amer 90 mL/min (>60); Glucose 150 mg/dL (74-106); Potassium 3.4 mmol/L (3.5-5.1); Protein, Total 5.7 g/dL (6.4-8.2); Sodium Level 139 mmol/L (136-145)
[2020-08-17] MEDS: dexAMETHasone 4 MG Tablet 6 MG PO (08:47)
[2020-08-17] MEDS: dilTIAZem CD 240 MG Capsule PO (08:48)
[2020-08-17] MEDS: Azelastine HCl NASAL.SRY 1 SPRAY NASAL ×2 (08:49→21:39)
[2020-08-17] MEDS: Fluticasone 0.05% 1 SPRAY NASAL.SRY 2 SPRAY NASAL (08:49)
[2020-08-17] MEDS: Enoxaparin 40 MG/0.4 ML Syringe SC (08:50)
[2020-08-17] MEDS: Sertraline 50 MG Tablet 25 MG PO (08:50)
[2020-08-17] MEDS: Pantoprazole Sodium 40 MG Tablet PO (08:50)
[2020-08-17] MEDS: oxyCODONE 5 MG Tablet 10 MG PO ×2 (08:51→17:04)
[2020-08-17] MEDS: Sertraline 50 MG Tablet PO (08:51)
--- NOTE | 2020-08-17 09:06 | CASEMGMT ---
Addendum entered by Darion Kendall 08/17/20 09:21: Call to [facility] [place]- patient's script is for 4L NC @ rest and 5L with ambulation. Antelmo WERNER RN ACM Original Note: RN VERNON Note: Call to [facility] in [place]. Patient receives SN and aide services and this can resume on discharge. They can also add PT/OT to her Home Health Care. Order entered. H/P and order faxed to agency. Call to patient's room, intro role of CM to patient. She feels she can return home with current services. Discussed PT/OT evaluations and patient agrees she is feeling weak and could use PT/OT @ home. [facility] PH: FX: -DC PLAN: Home oxygen testing with ambulation prior to discharge. Home with services through Homecare Waiver Program, Palliative care and Home Health.
--- NOTE | 2020-08-17 10:04 | CASEMGMT ---
Social Work Note SW received call from Dory at [facility] requesting update on pt. REGINALD provided update informed Dory that PT/OT has been added to [facility]. REGINALD informed Dory that this worker is not sure when pt will be discharged but will let Dory know. Irina Lyles BANJO REPAIRER, DIALYSIS EQUIPMENT TECHNICIAN
[2020-08-17] MEDS: 0.9% Saline Lock 10 ML Syringe IV ×3 (12:10→21:50)
--- NOTE | 2020-08-17 14:55 | PN_ITS ---
Patient Problems: Active and Suspected Problems (Last Reviewed 08/12/20 @ 18:[address] Shaila Mims DO) Pneumonia (Acute) COVID-19 (Acute) Subjective: Patient was seen and examined today, she remains on 4 L of oxygen via nasal cannula at this time. I briefly talked with pulmonary medicine about her care. Patient finished up her remdesivir today. Objective: General: Alert, Oriented x3, Cooperative, No apparent distress, Well developed, Well nourished HEENT: Atraumatic, PERRLA, EOMI, Normocephalic Oral: Moist Mucosa Neck: Supple, No JVD, Trachea Midline, Thyroid Normal Size and Texture Lungs: Normal air movement, Wheezes - Expiratory wheezes are noted bilaterally Cardiovascular: Regular rate, Regular Rhythm, Normal S1, Normal S2, No murmurs, PMI Normal, No rub noted, No Gallop Abdomen: Bowel Sounds Present, Soft, Non Tender, Non-Distended Extremities: No clubbing, No cyanosis, No edema, Capillary Refill Less than 3 S econds Skin: No rashes, No breakdown Musculoskeletal: No Tenderness to Palpation of Joints or Extremities Neurological: Cranial nerves II-XII grossly intact, Neuro grossly intact, Sensory exam intact to light touch and pain Psych/Mental Status: Normal Affect, Appropriate, Alert and oriented to time, place, person, mood and affect - Physical Exam Vitals/I&O's: Vital Signs Temp Pulse Resp BP Pulse Ox 99.1 F 104 H 20 H 136/76 H 95 08/17/20 14:01 08/17/20 14:01 08/17/20 14:01 08/17/20 14:01 08/17/20 14:01 Oxygen Flow Rate (L/min) [ 5 AMBULATION with Oxygen] Oxygen Flow Rate (L/min) 4 Oxygen Delivery Method Nasal Cannula Weight: 78.1 kg Body Mass Index (BMI) 36.2 Intake and Output for Last 24 Hours 08/15/20 08/16/20 08/17/20 23:59 23:59 23:59 Intake Total 1370 / 1370 250 / 490 940 / 940 Balance 1370 / 1370 250 / 490 940 / 940 Microbiology Past 72 Hours 08/12/20 12:33 Blood Culture (Wb) - Left Hand Blood Culture - Final No growth in 5 days. 08/12/20 12:33 Blood Culture (Wb) - Anticubital Right Blood Culture - Final No growth in 5 days. Laboratory Results 08/17/20 05:34: WBC 9.2, RBC 3.31 L, Hgb 10.1 L, Hct 32.6 L, MCV 98.5, MCH 30.5, MCHC 31.0 L, RDW Std Deviation 52.1 H, RDW Coeff of Noe 14.4, Plt Count 211, MPV 9.5 08/17/20 05:34: Sodium 139, Potassium 3.4 L, Chloride 104, Carbon Dioxide 30.0, Anion Gap 5, BUN 21 H, Creatinine 0.84, Estim Creat Clear Calc 91.10, Est GFR (MDRD) Af Amer 90, Est GFR (MDRD) Non-Af 74, BUN/Creatinine Ratio 25.0 H, Glucose 150 H, Calcium 8.1 L, Total Bilirubin 0.40, AST 11 L, ALT 20, Alkaline Phosphatase 60, Total Protein 5.7 L, Albumin 2.7 L, Globulin 3.0, Albumin/Globulin Ratio 0.9 Current Medications Acetaminophen (Acetaminophen 325 Mg Tablet) 650 mg PO Q6H PRN PRN PRN Reason: Pain Score 1-10/Temp > 100.7 F Al Hydroxide/Mg Hydroxide (Mag Hydrox/Al Hydrox/Simeth 30 Ml Udc) 30 ml PO Q6H PRN PRN PRN Reason: Gastric Burning Albuterol Sulfate (Albuterol 2.5 Mg/3 Ml Vial.Neb.) 2.5 mg INHALATION Q2H PRN PRN PRN Reason: Shortness of Breath/Wheezing Last Admin: 08/15/20 10:49 Dose: 2.5 mg Documented by: Albuterol/Ipratropium (Ipratropium/Albuterol Sulfate 3 Ml Ampul.Neb) 3 ml INHALATION Q6H.RT [facility] Last Admin: 08/17/20 13:15 Dose: 3 ml Documented by: Alprazolam (Alprazolam 0.5 Mg Tablet) 0.5 mg PO TID [facility] Last Admin: 08/17/20 14:03 Dose: 0.5 mg Documented by: Azelastine HCl (Azelastine Hcl Nasal.Sry) 1 spray NASAL BID [facility] Last Admin: 08/17/20 08:49 Dose: 1 spray Documented by: Buspirone HCl (Buspirone 5 Mg Tablet) 10 mg PO TID [facility] Last Admin: 08/17/20 14:03 Dose: 10 mg Documented by: Dexamethasone (Dexamethasone 4 Mg Tablet) 6 mg PO DAILY@1000 [facility] Last Admin: 08/17/20 09:10 Dose: Not Given Documented by: Diltiazem HCl (Diltiazem Cd 240 Mg Capsule) 240 mg PO DAILY [facility] Last Admin: 08/17/20 08:48 Dose: 240 mg Documented by: Enoxaparin Sodium (Enoxaparin 40 Mg/0.4 Ml Syringe) 40 mg SC BID [facility] Last Admin: 08/17/20 08:50 Dose: 40 mg Documented by: Fluticasone Propionate (Fluticasone 0.05% 1 [place] Nasal.Sry) 2 spray NASAL DAILY [facility] Last Admin: 08/17/20 08:49 Dose: 2 spray Documented by: Sodium Chloride () 250 mls @ 15 mls/hr IV .[id number] PRN PRN Reason: Saline Flush Sodium Chloride () 250 mls @ 15 mls/hr IV .[id number] PRN PRN Reason: Additional IVPB Infusion Imatinib Mesylate (Imatinib Mesylate 400 Mg Tablet) 400 mg PO DAILY@1600 [facility] Last Admin: 08/16/20 16:53 Dose: 400 mg Documented by: Melatonin (Melatonin 3 Mg Tablet) 3 mg PO QHS PRN PRN PRN Reason: INSOMNIA Last Admin: 08/16/20 19:55 Dose: 3 mg Documented by: Oxycodone HCl (Oxycodone 5 Mg Tablet) 10 mg PO Q6H PRN PRN PRN Reason: Pain Score 1-10 Last Admin: 08/17/20 08:51 Dose: 10 mg Documented by: Pantoprazole Sodium (Pantoprazole Sodium 40 Mg Tablet) 40 mg PO DAILY [facility] Last Admin: 08/17/20 08:50 Dose: 40 mg Documented by: Prochlorperazine Maleate (Prochlorperazine 5 Mg Tablet) 10 mg PO Q6H PRN PRN Reason: NAUSEA Last Admin: 08/16/20 06:23 Dose: 10 mg Documented by: Senna/Docusate Sodium (Senna/Docusate Sodium 1 Tablet) 2 tablet PO BID PRN PRN PRN Reason: Constipation Sertraline HCl (Sertraline 50 Mg Tablet) 25 mg PO DAILY [facility] Last Admin: 08/17/20 08:50 Dose: 25 mg Documented by: Sertraline HCl (Sertraline 50 Mg Tablet) 50 mg PO DAILY [facility] Last Admin: 08/17/20 08:51 Dose: 50 mg Documented by: Sodium Chloride (0.9% Saline Lock 10 Ml Syringe) 10 - 40 ml IV UD PRN PRN Reason: SALINE FLUSH Last Admin: 08/17/20 12:10 Dose: 10 ml Documented by: Throat Lozenges (Benzocaine/Menthol 1 Lozenge) 1 lozenge MUCOUS MEM Q2H PRN PRN PRN Reason: SORE THROAT Medical Necessity - Tobacco Use Smoking Status: Former smoker Tobacco Use: Cigarettes Assessment/Plan All Active Problems (Last Reviewed 08/12/20 @ 18:[address] Shaila Mims, DO) Pneumonia (Acute) COVID-19 (Acute) #1 COVID-19 pneumonia-continue treatment per infectious diseases and pulmonary medicine, I will discussed the case with pulmonary medicine-she will be reevaluated tomorrow #2 hypoxic respiratory failure-acute on chronic #3 chronic obstructive pulmonary disease #4 chronic myelocytic leukemia #5 chronic depression Inpatient E&M: 16154 Subs Hosp L2
--- NOTE | 2020-08-17 15:11 | PCM.PN.PUL ---
Patient Problems: Active and Suspected Problems (Last Reviewed 08/12/20 @ 18:[address] Shaila Mims, DO) Pneumonia (Acute) COVID-19 (Acute) Subjective: Patient did well overnight. Patient was able to have a walking oximetry and required only 5 L nasal cannula with ambulation. Patient did report significant increase in nonproductive cough over the last 24 hours. Chest pain is slightly improved. - Physical Exam Vitals/I&O's: Vital Signs Temp Pulse Resp BP Pulse Ox 37.3 C 104 H 20 H 136/76 H 95 08/17/20 14:01 08/17/20 14:01 08/17/20 14:01 08/17/20 14:01 08/17/20 14:01 Oxygen Flow Rate (L/min) [ 5 AMBULATION with Oxygen] Oxygen Flow Rate (L/min) 4 Oxygen Delivery Method Nasal Cannula Weight: 78.1 kg Body Mass Index (BMI) 36.2 Intake and Output for Last 24 Hours 08/15/20 08/16/20 08/17/20 23:59 23:59 23:59 Intake Total 1370 / 1370 250 / 490 940 / 940 Balance 1370 / 1370 250 / 490 940 / 940 General: Alert, Oriented x3, Cooperative, - - Moderate conversational dyspnea. Appears older than stated age. Obese. HEENT: Atraumatic, PERRLA, EOMI, Normocephalic, - - No scleral icterus or injection noted Oral: Moist Mucosa, No Gingival or Mucosal Lesions/ Ulcerations, - - Crowded posterior pharynx Neck: Supple, No JVD, No Nodes, Trachea Midline Lungs: No rhonchi, No rales, Diminished, Wheezes - Bilateral, - - Symmetric expansion. Cardiovascular: Regular rate, Regular Rhythm, Normal S1, Normal S2, No murmurs, No rub noted, No Gallop Abdomen: Bowel Sounds Present, Soft, Non Tender, Non-Distended, Obese Extremities: No cyanosis, No edema, Capillary Refill Less than 3 Seconds, Clubbing Skin: - - No change from previous Musculoskeletal: No Tenderness to Palpation of Joints or Extremities Lymphatic: No Cervical, Supraclavicular, or Inguinal Adenopathy Neurological: Cranial nerves II-XII grossly intact, Neuro grossly intact, Motor Exam 5/5 strength throughout Psych/Mental Status: Alert and oriented to time, place, person, mood and affect Microbiology Past 72 Hours 08/12/20 12:33 Blood Culture (Wb) - Left Hand Blood Culture - Final No growth in 5 days. 08/12/20 12:33 Blood Culture (Wb) - Anticubital Right Blood Culture - Final No growth in 5 days. Laboratory Results 08/17/20 05:34: WBC 9.2, RBC 3.31 L, Hgb 10.1 L, Hct 32.6 L, MCV 98.5, MCH 30.5, MCHC 31.0 L, RDW Std Deviation 52.1 H, RDW Coeff of Noe 14.4, Plt Count 211, MPV 9.5 08/17/20 05:34: Sodium 139, Potassium 3.4 L, Chloride 104, Carbon Dioxide 30.0, Anion Gap 5, BUN 21 H, Creatinine 0.84, Estim Creat Clear Calc 91.10, Est GFR (MDRD) Af Amer 90, Est GFR (MDRD) Non-Af 74, BUN/Creatinine Ratio 25.0 H, Glucose 150 H, Calcium 8.1 L, Total Bilirubin 0.40, AST 11 L, ALT 20, Alkaline Phosphatase 60, Total Protein 5.7 L, Albumin 2.7 L, Globulin 3.0, Albumin/Globulin Ratio 0.9 Current Medications Acetaminophen (Acetaminophen 325 Mg Tablet) 650 mg PO Q6H PRN PRN PRN Reason: Pain Score 1-10/Temp > 100.7 F Al Hydroxide/Mg Hydroxide (Mag Hydrox/Al Hydrox/Simeth 30 Ml Udc) 30 ml PO Q6H PRN PRN PRN Reason: Gastric Burning Albuterol Sulfate (Albuterol 2.5 Mg/3 Ml Vial.Neb.) 2.5 mg INHALATION Q2H PRN PRN PRN Reason: Shortness of Breath/Wheezing Last Admin: 08/15/20 10:49 Dose: 2.5 mg Documented by: Albuterol/Ipratropium (Ipratropium/Albuterol Sulfate 3 Ml Ampul.Neb) 3 ml INHALATION Q6H.RT GERA Last Admin: 08/17/20 13:15 Dose: 3 ml Documented by: Alprazolam (Alprazolam 0.5 Mg Tablet) 0.5 mg PO TID GERA Last Admin: 08/17/20 14:03 Dose: 0.5 mg Documented by: Azelastine HCl (Azelastine Hcl Nasal.Sry) 1 spray NASAL BID [facility] Last Admin: 08/17/20 08:49 Dose: 1 spray Documented by: Buspirone HCl (Buspirone 5 Mg Tablet) 10 mg PO TID [facility] Last Admin: 08/17/20 14:03 Dose: 10 mg Documented by: Dexamethasone (Dexamethasone 4 Mg Tablet) 6 mg PO DAILY@1000 [facility] Last Admin: 08/17/20 09:10 Dose: Not Given Documented by: Diltiazem HCl (Diltiazem Cd 240 Mg Capsule) 240 mg PO DAILY [facility] Last Admin: 08/17/20 08:48 Dose: 240 mg Documented by: Enoxaparin Sodium (Enoxaparin 40 Mg/0.4 Ml Syringe) 40 mg SC BID [facility] Last Admin: 08/17/20 08:50 Dose: 40 mg Documented by: Fluticasone Propionate (Fluticasone 0.05% 1 [place] Nasal.Sry) 2 spray NASAL DAILY [facility] Last Admin: 08/17/20 08:49 Dose: 2 spray Documented by: Sodium Chloride () 250 mls @ 15 mls/hr IV .[id number] PRN PRN Reason: Saline Flush Sodium Chloride () 250 mls @ 15 mls/hr IV .[id number] PRN PRN Reason: Additional IVPB Infusion Imatinib Mesylate (Imatinib Mesylate 400 Mg Tablet) 400 mg PO DAILY@1600 [facility] Last Admin: 08/16/20 16:53 Dose: 400 mg Documented by: Melatonin (Melatonin 3 Mg Tablet) 3 mg PO QHS PRN PRN PRN Reason: INSOMNIA Last Admin: 08/16/20 19:55 Dose: 3 mg Documented by: Oxycodone HCl (Oxycodone 5 Mg Tablet) 10 mg PO Q6H PRN PRN PRN Reason: Pain Score 1-10 Last Admin: 08/17/20 08:51 Dose: 10 mg Documented by: Pantoprazole Sodium (Pantoprazole Sodium 40 Mg Tablet) 40 mg PO DAILY [facility] Last Admin: 08/17/20 08:50 Dose: 40 mg Documented by: Prochlorperazine Maleate (Prochlorperazine 5 Mg Tablet) 10 mg PO Q6H PRN PRN Reason: NAUSEA Last Admin: 08/16/20 06:23 Dose: 10 mg Documented by: Senna/Docusate Sodium (Senna/Docusate Sodium 1 Tablet) 2 tablet PO BID PRN PRN PRN Reason: Constipation Sertraline HCl (Sertraline 50 Mg Tablet) 25 mg PO DAILY [facility] Last Admin: 08/17/20 08:50 Dose: 25 mg Documented by: Sertraline HCl (Sertraline 50 Mg Tablet) 50 mg PO DAILY [facility] Last Admin: 08/17/20 08:51 Dose: 50 mg Documented by: Sodium Chloride (0.9% Saline Lock 10 Ml Syringe) 10 - 40 ml IV UD PRN PRN Reason: SALINE FLUSH Last Admin: 08/17/20 12:10 Dose: 10 ml Documented by: Throat Lozenges (Benzocaine/Menthol 1 Lozenge) 1 lozenge MUCOUS MEM Q2H PRN PRN PRN Reason: SORE THROAT Medical Necessity - Tobacco Use Smoking Status: Former smoker Tobacco Use: Cigarettes Assessment/Plan All Active Problems (Last Reviewed 08/12/20 @ 18:[address] Shaila Mims DO) Pneumonia (Acute) COVID-19 (Acute) RECOMMENDATIONS: 1. Wean supplemental oxygen to maintain saturations at or above 90%. 2. Continue bronchodilator therapy as ordered. 3. Continue Decadron 6 mg daily. 4. Continue remdesivir and monitor liver and renal function closely. 5. Anticipate discharge in the next 24 to 48 hours IMPRESSIONS: 1. Acute on chronic hypoxemic respiratory failure secondary to COVID-19 pneumonia The patient has advanced age COPD and chronic hypoxemic respiratory failure with a baseline 4 L/min oxygen requirement, along with CML. She has been symptomatic now for approximately 1 week after having tested positive on August 06. The patient did refuse convalescent plasma. However, she was started on remdesivir and Decadron. Appears to be tolerating well. Continue to wean supplemental oxygen as tolerated. Continue scheduled bronchodilators as ordered. Anticipate discharge in next 24 to 48 hours. Patient should be discharged on prednisone 40 mg and wean to her baseline of 10 mg over the course of 12 to 14 days. Patient has significant wheezing at baseline, so this should not limit discharge independently. Anticipate nonproductive cough for several weeks to months to come. 2. Hypokalemia Electrolyte repletion as ordered. Recheck levels in the morning. 3. History of CML/obesity/depression/anxiety/GERD Complicates care, management, recovery and prognosis. Continue home medications as indicated. Inpatient E&M: 63591 Subs Hosp L2
[2020-08-17] MEDS: proCHLORPERazine 5 MG Tablet 10 MG PO (15:53)
[2020-08-17] MEDS: MELATONIN 3 MG TABLET PO (22:00)
[2020-08-17] MEDS: Albuterol 2.5 MG/3 ML VIAL.NEB. INHALATION (22:17)
[2020-08-18] VITALS (8 sets, daily range): BP systolic 122–147; BP diastolic 75–84; PULSE 92–100; RESP 19–22; TEMP 36.8–37; O2SAT 87–94
[2020-08-18] MEDS: oxyCODONE 5 MG Tablet 10 MG PO ×2 (00:04→08:13)
[2020-08-18] MEDS: Ipratropium/Albuterol Sulfate 3 ML AMPUL.NEB INHALATION ×3 (00:32→13:31)
[2020-08-18] MEDS: busPIRone 5 MG Tablet 10 MG PO ×2 (06:12→13:56)
[2020-08-18] MEDS: ALPRAZolam 0.5 MG Tablet PO ×2 (06:12→13:55)
[2020-08-18 06:14] LABS: Hematocrit 28.6 % (37-47); Hemoglobin 8.7 g/dL (12.0-15.0); Mean Corp Hgb Conc 30.4 g/dL (32-36); Mean Corpuscular Hgb 30.5 pg (27.0-32.0); Mean Corpuscular Volume 100.4 fL (81-99); Mean Platelet Vol. 9.5 fl (6.2-12.0); Platelet Count 175 K/mm3 (150-450); RBC Distribution Width CV 14.4 % (11.6-14.6); RBC Distribution Width SD 52.5 fl (35.1-43.9); Red Blood Count 2.85 M/mm3 (4.2-5.4); White Blood Count 8.9 K/mm3 (4.4-11.0)
[2020-08-18 06:39] LABS: ALB/GLOB Ratio 0.9 RATIO (0.9-2.4); AST(SGOT) 13 U/L (15-37); Alanine Aminotransfer ALT/SGPT 20 U/L (13-56); Albumin, Serum 2.5 g/dL (3.2-5.0); Alkaline Phosphatase 60 U/L (45-117); Anion Gap 6 (5-15); BUN 21 mg/dL (7-18); BUN/Creat Ratio 29.2 RATIO (10-20); Chloride 103 mmol/L (98-107); Creatinine, Serum 0.72 mg/dL (0.55-1.02); EST Glomerular Filtration Rate 89 mL/min (>60); Est Glom Filt Rate - Afr Amer 107 mL/min (>60); Estimated Creatinine Clearance 106.02 ml/min; Globulin 2.9 g/dL (2.2-4.2); Glucose 164 mg/dL (74-106); Potassium 3.7 mmol/L (3.5-5.1); Protein, Total 5.4 g/dL (6.4-8.2); Sodium Level 135 mmol/L (136-145)
[2020-08-18] MEDS: Sertraline 50 MG Tablet 25 MG PO (08:11)
[2020-08-18] MEDS: Sertraline 50 MG Tablet PO (08:12)
[2020-08-18] MEDS: dilTIAZem CD 240 MG Capsule PO (08:12)
[2020-08-18] MEDS: dexAMETHasone 4 MG Tablet 6 MG PO (08:12)
[2020-08-18] MEDS: Pantoprazole Sodium 40 MG Tablet PO (08:12)
[2020-08-18] MEDS: Fluticasone 0.05% 1 SPRAY NASAL.SRY 2 SPRAY NASAL (08:13)
[2020-08-18] MEDS: Enoxaparin 40 MG/0.4 ML Syringe SC (08:13)
[2020-08-18] MEDS: Azelastine HCl NASAL.SRY 1 SPRAY NASAL (08:14)
--- NOTE | 2020-08-18 13:30 | PCM.DC ---
- Discharge Diagnoses Current Active Problems: Current Active and Chronic Problems (Last Reviewed 08/12/20 @ 18:[address] Shaila Mims, DO) Pneumonia (Acute) COVID-19 (Acute) Acute on chronic respiratory failure with hypoxemia (Chronic) Tachycardia (Chronic) Hypokalemia (Chronic) Fibromyalgia (Chronic) Nicotine abuse (Chronic) Stage 3 severe COPD by GOLD classification (Chronic) Chronic hypoxemic respiratory failure (Chronic) Ulcerative colitis (Chronic) Poor compliance with medication (Chronic) CML (chronic myelocytic leukemia) (Chronic) Emphysema of lung (Chronic) You will use the following diet at home:: Cardiac Your food should be the consistency of: Regular Your liquids should be the consistency of: Regular/Thin Discharge Activity: Return to Normal Activity Call your doctor if you observe: Fever of 101 or Higher, Shortness of breath, Dizziness, Fainting spells, Swelling in the ankles, Chest pain, Increased palpitations (irregular heartbeat) Allergies/Adverse Reactions: Allergies Penicillins Allergy (Severe, Verified 08/12/20 12:17) Hives Sulfa (Sulfonamide Antibiotics) Allergy (Intermediate, Verified 08/12/20 12:17) Hives azithromycin Adverse Reaction (Severe, Verified 08/12/20 12:17) Diarrhea codeine Adverse Reaction (Severe, Verified 08/12/20 12:17) Vomiting ondansetron [From Zofran] Adverse Reaction (Severe, Verified 08/12/20 12:17) Nausea ondansetron HCl [From Zofran (as hydrochloride)] Adverse Reaction (Severe, Verified 08/12/20 12:17) Nausea pregabalin [From Lyrica] Adverse Reaction (Severe, Verified 08/12/20 12:17) i can't see propoxyphene napsylate [From Darvocet-N 100] Adverse Reaction (Severe, Verified 08/12/20 12:17) Vomiting Medications to take at Discharge Albuterol Aerosols [Ventolin Aerosols] 2.5 mg INHALATION Q4H PRN PRN 10/18/18 Budesonide/Formoterol Fumarate [Symbicort 160-4.5 Mcg Inhaler] 1 puff IH BID 10/18/18 Diltiazem CD [Cardizem CD] 240 mg PO DAILY 10/18/18 Sertraline HCl [Zoloft] 50 mg PO DAILY 10/18/18 albuterol sulfate 90 mcg/actuation aerosol inhaler 2 puff INHALATION Q4H PRN PRN #18 g 01/14/19 potassium chloride 20 mEq tablet,extended release(part/cryst) 20 meq PO BID 04/14/19 omeprazole 40 mg capsule,delayed release 40 mg PO DAILY 04/15/19 sertraline 25 mg tablet 25 mg PO DAILY 04/15/19 alprazolam 0.5 mg tablet 0.5 mg PO TID tab 07/15/19 buspirone 10 mg tablet 10 mg PO TID tab 07/15/19 prochlorperazine maleate 10 mg tablet 10 mg PO Q6H PRN 07/15/19 fluticasone propionate 50 mcg/actuation nasal spray,suspension 2 spray INTRANASAL DAILY #50 mcg 12/31/19 ipratropium 0.5 mg-albuterol 3 mg (2.5 mg base)/3 mL nebulization soln 3 ml INHALATION Q6H PRN ml 03/31/20 Alendronate Sodium [Fosamax] 70 mg PO SA 07/06/20 Azelastine HCl 1 spray NS BID 07/06/20 Imatinib Mesylate [Gleevec] 400 mg PO DAILY@1600 07/06/20 Loratadine 10 mg PO DAILY 07/06/20 Oxycodone [Oxyir] 10 mg PO Q6H PRN PRN 07/06/20 Acetaminophen [Tylenol Extra Strength] 1,000 mg PO DAILY PRN PRN 08/12/20 Prednisone 10 mg PO DAILY #0 08/18/20 Prednisone [Deltasone] 40 mg PO DAILY #21 tab 08/18/20 The following prescriptions were given: Prednisone [Deltasone] 40 mg PO DAILY #21 tab Transmission Status: Pending to [facility] Primary Care Physician: Jennifer Coelho NP, [employer] [Primary Care Provider] - Please follow up with your Primary Care Physician in: 3-5 days Test Results: Test results from this visit will be discussed in further detail at your follow-up appointment, if applicable. Please Follow Up With: Brenden Ridley MD When: 2-4 weeks
--- NOTE | 2020-08-18 14:03 | PN_ITS ---
Patient Problems: Active and Suspected Problems (Last Reviewed 08/12/20 @ 18:[address] Shaila Mims, DO) Pneumonia (Acute) COVID-19 (Acute) Subjective: Patient was somewhat dyspneic on my evaluation. Patient reported that she had just walked back from the bathroom. Patient did not feel this was significantly worse compared to previous. Patient continues to wheeze and have a cough, but otherwise thought she might be the same to slightly better compared to yesterday. Patient does state that she feels strong enough to go home - Physical Exam Vitals/I&O's: Vital Signs Temp Pulse Resp BP Pulse Ox 36.8 C 100 19 H 135/84 H 87 08/18/20 07:56 08/18/20 13:32 08/18/20 13:32 08/18/20 07:56 08/18/20 10:00 Oxygen Flow Rate (L/min) [ 4 AMBULATION with Oxygen] Oxygen Flow Rate (L/min) 4 Oxygen Delivery Method Nasal Cannula Weight: 77.9 kg Body Mass Index (BMI) 36.2 Intake and Output for Last 24 Hours 08/16/20 08/17/20 08/18/20 23:59 23:59 23:59 Intake Total 250 / 490 1590 / 1840 250 / 250 Balance 250 / 490 1590 / 1840 250 / 250 General: Alert, Oriented x3, Cooperative, - - Mild respiratory distress. Appears older than stated age. HEENT: Atraumatic, PERRLA, EOMI, Normocephalic, - - No scleral icterus or injection noted Oral: Moist Mucosa, No Gingival or Mucosal Lesions/ Ulcerations Neck: Supple, No JVD, No Nodes, Trachea Midline Lungs: No rhonchi, No rales, Diminished, Wheezes, - Cardiovascular: Regular rate, Regular Rhythm, Normal S1, Normal S2, No murmurs, No rub noted, No Gallop Abdomen: Bowel Sounds Present, Soft, Non Tender, Non-Distended, Obese Extremities: No cyanosis, No edema, Clubbing Skin: No rashes, No breakdown Musculoskeletal: No Tenderness to Palpation of Joints or Extremities Lymphatic: No Cervical, Supraclavicular, or Inguinal Adenopathy Neurological: Cranial nerves II-XII grossly intact, Neuro grossly intact, Motor Exam 5/5 strength throughout Psych/Mental Status: Anxious, Restless Microbiology Past 72 Hours 08/12/20 12:33 Blood Culture (Wb) - Left Hand Blood Culture - Final No growth in 5 days. 08/12/20 12:33 Blood Culture (Wb) - Anticubital Right Blood Culture - Final No growth in 5 days. Laboratory Results 08/18/20 04:54: WBC 8.9, RBC 2.85 L, Hgb 8.7 L, Hct 28.6 L, MCV 100.4 H, MCH 30.5, MCHC 30.4 L, RDW Std Deviation 52.5 H, RDW Coeff of Noe 14.4, Plt Count 175, MPV 9.5 08/18/20 04:54: Sodium 135 L, Potassium 3.7, Chloride 103, Carbon Dioxide 26.0, Anion Gap 6, BUN 21 H, Creatinine 0.72, Estim Creat Clear Calc 106.02, Est GFR (MDRD) Af Amer 107, Est GFR (MDRD) Non-Af 89, BUN/Creatinine Ratio 29.2 H, Glucose 164 H, Calcium 8.0 L, Total Bilirubin 0.30, AST 13 L, ALT 20, Alkaline Phosphatase 60, Total Protein 5.4 L, Albumin 2.5 L, Globulin 2.9, Albumin/Globulin Ratio 0.9 Current Medications Acetaminophen (Acetaminophen 325 Mg Tablet) 650 mg PO Q6H PRN PRN PRN Reason: Pain Score 1-10/Temp > 100.7 F Al Hydroxide/Mg Hydroxide (Mag Hydrox/Al Hydrox/Simeth 30 Ml Udc) 30 ml PO Q6H PRN PRN PRN Reason: Gastric Burning Albuterol Sulfate (Albuterol 2.5 Mg/3 Ml Vial.Neb.) 2.5 mg INHALATION Q2H PRN PRN PRN Reason: Shortness of Breath/Wheezing Last Admin: 08/17/20 22:17 Dose: 2.5 mg Documented by: Albuterol/Ipratropium (Ipratropium/Albuterol Sulfate 3 Ml Ampul.Neb) 3 ml INHALATION Q6H.RT GERA Last Admin: 08/18/20 13:31 Dose: 3 ml Documented by: Alprazolam (Alprazolam 0.5 Mg Tablet) 0.5 mg PO TID [facility] Last Admin: 08/18/20 13:55 Dose: 0.5 mg Documented by: Azelastine HCl (Azelastine Hcl Nasal.Sry) 1 spray NASAL BID [facility] Last Admin: 08/18/20 08:14 Dose: 1 spray Documented by: Buspirone HCl (Buspirone 5 Mg Tablet) 10 mg PO TID [facility] Last Admin: 08/18/20 13:56 Dose: 10 mg Documented by: Dexamethasone (Dexamethasone 4 Mg Tablet) 6 mg PO DAILY@1000 [facility] Last Admin: 08/18/20 08:12 Dose: 6 mg Documented by: Diltiazem HCl (Diltiazem Cd 240 Mg Capsule) 240 mg PO DAILY [facility] Last Admin: 08/18/20 08:12 Dose: 240 mg Documented by: Enoxaparin Sodium (Enoxaparin 40 Mg/0.4 Ml Syringe) 40 mg SC BID [facility] Last Admin: 08/18/20 08:13 Dose: 40 mg Documented by: Fluticasone Propionate (Fluticasone 0.05% 1 [place] Nasal.Sry) 2 spray NASAL DAILY [facility] Last Admin: 08/18/20 08:13 Dose: 2 spray Documented by: Sodium Chloride () 250 mls @ 15 mls/hr IV .[id number] PRN PRN Reason: Saline Flush Sodium Chloride () 250 mls @ 15 mls/hr IV .[id number] PRN PRN Reason: Additional IVPB Infusion Imatinib Mesylate (Imatinib Mesylate 400 Mg Tablet) 400 mg PO DAILY@1600 [facility] Last Admin: 08/17/20 17:04 Dose: 400 mg Documented by: Melatonin (Melatonin 3 Mg Tablet) 3 mg PO QHS PRN PRN PRN Reason: INSOMNIA Last Admin: 08/17/20 22:00 Dose: 3 mg Documented by: Oxycodone HCl (Oxycodone 5 Mg Tablet) 10 mg PO Q6H PRN PRN PRN Reason: Pain Score 1-10 Last Admin: 08/18/20 08:13 Dose: 10 mg Documented by: Pantoprazole Sodium (Pantoprazole Sodium 40 Mg Tablet) 40 mg PO DAILY [facility] Last Admin: 08/18/20 08:12 Dose: 40 mg Documented by: Prochlorperazine Maleate (Prochlorperazine 5 Mg Tablet) 10 mg PO Q6H PRN PRN Reason: NAUSEA Last Admin: 08/17/20 15:53 Dose: 10 mg Documented by: Senna/Docusate Sodium (Senna/Docusate Sodium 1 Tablet) 2 tablet PO BID PRN PRN PRN Reason: Constipation Sertraline HCl (Sertraline 50 Mg Tablet) 25 mg PO DAILY [facility] Last Admin: 08/18/20 08:11 Dose: 25 mg Documented by: Sertraline HCl (Sertraline 50 Mg Tablet) 50 mg PO DAILY [facility] Last Admin: 08/18/20 08:12 Dose: 50 mg Documented by: Sodium Chloride (0.9% Saline Lock 10 Ml Syringe) 10 - 40 ml IV UD PRN PRN Reason: SALINE FLUSH Last Admin: 08/17/20 21:50 Dose: 10 ml Documented by: Throat Lozenges (Benzocaine/Menthol 1 Lozenge) 1 lozenge MUCOUS MEM Q2H PRN PRN PRN Reason: SORE THROAT Medical Necessity - Tobacco Use Smoking Status: Former smoker Tobacco Use: Cigarettes Assessment/Plan All Active Problems (Last Reviewed 08/12/20 @ 18:[address] Shaila Mims, DO) Pneumonia (Acute) COVID-19 (Acute) RECOMMENDATIONS: 1. Wean supplemental oxygen to maintain saturations at or above 90%. 2. Continue bronchodilator therapy as ordered. 3. Transition to prednisone therapy 40 mg with protracted taper to 10 mg 4. Continue remdesivir and monitor liver and renal function closely. 5. Okay to discharge from pulmonary perspective with follow-up in 4 weeks with nurse practitioner IMPRESSIONS: 1. Acute on chronic hypoxemic respiratory failure secondary to COVID-19 pneumonia The patient has advanced age COPD and chronic hypoxemic respiratory failure with a baseline 4 L/min oxygen requirement, along with CML. She has been symptomatic now for approximately 1 week after having tested positive on August 06. The patient did refuse convalescent plasma. However, she was started on remdesivir and Decadron. Appears to be tolerating well. Continue to wean supplemental oxygen as tolerated. Continue scheduled bronchodilators as ordered. Okay to discharge from a pulmonary perspective. Patient should be discharged on prednisone 40 mg and wean to her baseline of 10 mg over the course of 12 to 14 days. Patient has significant wheezing at baseline, so this should not limit discharge independently. Anticipate nonproductive cough for several weeks to months to come. Patient understands that supplemental oxygen may be required at higher levels. Patient does have a electric wheelchair at home. Would not be opposed to 7-day steps on the prednisone taper. Patient does have additional prednisone at home and has instructions to call the office if necessary 2. Hypokalemia Electrolyte repletion as ordered. Recheck levels in the morning. 3. History of CML/obesity/depression/anxiety/GERD Complicates care, management, recovery and prognosis. Continue home medications as indicated. Inpatient E&M: 02087 Subs Hosp L2
--- NOTE | 2020-08-18 14:03 | CASEMGMT ---
RN CM Note: Patient to discharge home today. Call to [facility] to update on discharge. DC instructions faxed to them with order for SN to resume, PT/OT to be added. On previous call, they were able to accommodate the increase in services. SW updating other service providers. Patient has home oxygen 4-5L [place] @ home. DC PLAN: Home with resumption of skilled home health care, Palliative Care and waiver services. Antelmo WERNER RN AC
--- NOTE | 2020-08-18 14:03 | CASEMGMT ---
Social Work Pt ready for discharge today. REGINALD placed phone call to [facility] Palliative medicine and updated that pt is discharging today. Phone call to Ester at [facility] and left requesting return call. D/C instructions faxed to both companies. PIPO Garcia
--- NOTE | 2020-08-18 17:17 | PCM.DC.SUM ---
Discharge Date and Diagnosis - Problem List Patient Problems: Active and Suspected Problems (Last Reviewed 08/12/20 @ 18:[address] Shaila Mims DO) Pneumonia (Acute) COVID-19 (Acute) Date of Admission: 08/12/20 Date of Discharge: 08/18/20 - Primary Discharge Diagnosis Acute Problems: Active Problems (Last Reviewed 08/12/20 @ 18:[address] Shaila Mims DO) Pneumonia (Acute) COVID-19 (Acute) - Secondary Discharge Diagnosis Chronic Problems: Chronic Problems (Last Reviewed 08/12/20 @ 18:[address] Shaila Mims DO) Acute on chronic respiratory failure with hypoxemia (Chronic) Tachycardia (Chronic) Hypokalemia (Chronic) Fibromyalgia (Chronic) Nicotine abuse (Chronic) Stage 3 severe COPD by GOLD classification (Chronic) Chronic hypoxemic respiratory failure (Chronic) Ulcerative colitis (Chronic) Poor compliance with medication (Chronic) CML (chronic myelocytic leukemia) (Chronic) Emphysema of lung (Chronic) Hospital Course and Treatment Imaging Results: Clinical Impression(s) from Imaging Studies Chest X-Ray 08/12/20 12:27 IMPRESSION: Bibasilar pulmonary infiltrates with blunting of the left costophrenic angle. Electronically Signed: Presley Charles, at 13:13 EST , Service support , Consults: Pulmonology ID Operations: None Procedures: None Summary of Care Provided: Per HPI: Ms Arndt is a 59 year old F with a PMH of Severe COPD with O2 requirements of 4 L at baseline, CMP, UC, depression, anxiety, chronic prednisone dependence, and GERD who presented to the ED at [facility] on 08/12/2020 after being diagnosed about 4-5 days ago with COVID-19. She has had cough, increased SOB, fevers with a Tmax of 101.6 at home and fatigue. She states that she had worsening hypoxemia at home and that is why she presented to the ED. her VS are stable in the ED but she is on 6 L nasal cannula with and SpO2 of 93-94%. she does not have a white count. Her lactate is WNL and her renal fxn is WNL. CXR showed bibasilar infiltrates. She was started on Decadron 6 mg in the ED and given ABX in the ED. Hospital Course: 1. Acute on chronic hypoxic respiratory failure secondary to COVID-19 pneumonia/BSSJ-53-liia-old female with history of COPD who requires about 4 L nasal cannula at baseline presents to the hospital with shortness of breath and acute hypoxia that required an increase of her oxygen to 6 L nasal cannula. She was started on Decadron and remdesivir because of the positive Covid test. She did improve however she is anxious about going home so she was kept an extra day. She does feel better today and would like to go home. Instead of being discharged to complete her Decadron course, which she did receive 7 days of she will be discharged on a prednisone taper to return back to her baseline of 10 mg p.o. daily. She also need to follow-up with pulmonology as an outpatient. She is back to her baseline 4 L nasal cannula at rest and 5 L nasal cannula with ambulation. I discussed with her the plan for discharge today and she expressed understanding of the risk and benefits of going home and would like to go home. 2. History of CML, obesity, depression, anxiety, GERD are all chronic medical conditions which complicate her care. Her home medications were continued where appropriate Patient Problems: Active and Suspected Problems (Last Reviewed 08/12/20 @ 18:[address] Shaila Mims DO) Pneumonia (Acute) COVID-19 (Acute) - Physical Exam Vitals/I&O's: Vital Signs Temp Pulse Resp BP Pulse Ox 98.6 F 95 20 H 122/75 H 94 08/18/20 15:15 08/18/20 15:15 08/18/20 15:15 08/18/20 15:15 08/18/20 15:15 Oxygen Flow Rate (L/min) [ 4 AMBULATION with Oxygen] Oxygen Flow Rate (L/min) 4 Oxygen Delivery Method Nasal Cannula Weight: 171 lb 11.841 oz Body Mass Index (BMI) 36.2 Intake and Output for Last 24 Hours 08/16/20 08/17/20 08/18/20 23:59 23:59 23:59 Intake Total 250 / 490 1590 / 1840 850 / 850 Balance 250 / 490 1590 / 1840 850 / 850 General: Alert, Oriented x3, Cooperative, No apparent distress HEENT: Atraumatic, PERRLA, EOMI, Normocephalic Oral: Moist Mucosa Neck: Supple, No JVD Lungs: Diminished, Wheezes - Chronic Cardiovascular: Regular rate, Regular Rhythm, Normal S1, Normal S2, No murmurs Abdomen: Soft, Non Tender, Non-Distended, No Hepato-splenomegaly Extremities: No edema, Capillary Refill Less than 3 Seconds Skin: No rashes, No breakdown Neurological: Neuro grossly intact, Sensory exam intact to light touch and pain Psych/Mental Status: Anxious Microbiology Past 72 Hours 08/12/20 12:33 Blood Culture (Wb) - Left Hand Blood Culture - Final No growth in 5 days. 08/12/20 12:33 Blood Culture (Wb) - Anticubital Right Blood Culture - Final No growth in 5 days. Laboratory Results 08/18/20 04:54: WBC 8.9, RBC 2.85 L, Hgb 8.7 L, Hct 28.6 L, MCV 100.4 H, MCH 30.5, MCHC 30.4 L, RDW Std Deviation 52.5 H, RDW Coeff of Noe 14.4, Plt Count 175, MPV 9.5 08/18/20 04:54: Sodium 135 L, Potassium 3.7, Chloride 103, Carbon Dioxide 26.0, Anion Gap 6, BUN 21 H, Creatinine 0.72, Estim Creat Clear Calc 106.02, Est GFR (MDRD) Af Amer 107, Est GFR (MDRD) Non-Af 89, BUN/Creatinine Ratio 29.2 H, Glucose 164 H, Calcium 8.0 L, Total Bilirubin 0.30, AST 13 L, ALT 20, Alkaline Phosphatase 60, Total Protein 5.4 L, Albumin 2.5 L, Globulin 2.9, Albumin/Globulin Ratio 0.9 Discharge Activity: Return to Normal Activity Call your doctor if you observe: Fever of 101 or Higher, Shortness of breath, Dizziness, Fainting spells, Swelling in the ankles, Chest pain, Increased palpitations (irregular heartbeat) Home Medications: Medications to take at Discharge Albuterol Aerosols [Ventolin Aerosols] 2.5 mg INHALATION Q4H PRN PRN 10/18/18 Budesonide/Formoterol Fumarate [Symbicort 160-4.5 Mcg Inhaler] 1 puff IH BID 10/18/18 Diltiazem CD [Cardizem CD] 240 mg PO DAILY 10/18/18 Sertraline HCl [Zoloft] 50 mg PO DAILY 10/18/18 albuterol sulfate 90 mcg/actuation aerosol inhaler 2 puff INHALATION Q4H PRN PRN #18 g 01/14/19 potassium chloride 20 mEq tablet,extended release(part/cryst) 20 meq PO BID 04/14/19 omeprazole 40 mg capsule,delayed release 40 mg PO DAILY 04/15/19 sertraline 25 mg tablet 25 mg PO DAILY 04/15/19 alprazolam 0.5 mg tablet 0.5 mg PO TID tab 07/15/19 buspirone 10 mg tablet 10 mg PO TID tab 07/15/19 prochlorperazine maleate 10 mg tablet 10 mg PO Q6H PRN 07/15/19 fluticasone propionate 50 mcg/actuation nasal spray,suspension 2 spray INTRANASAL DAILY #50 mcg 12/31/19 ipratropium 0.5 mg-albuterol 3 mg (2.5 mg base)/3 mL nebulization soln 3 ml INHALATION Q6H PRN ml 03/31/20 Alendronate Sodium [Fosamax] 70 mg PO SA 07/06/20 Azelastine HCl 1 spray NS BID 07/06/20 Imatinib Mesylate [Gleevec] 400 mg PO DAILY@1600 07/06/20 Loratadine 10 mg PO DAILY 07/06/20 Oxycodone [Oxyir] 10 mg PO Q6H PRN PRN 07/06/20 Acetaminophen [Tylenol Extra Strength] 1,000 mg PO DAILY PRN PRN 08/12/20 Prednisone 10 mg PO DAILY #0 08/18/20 Prednisone [Deltasone] 40 mg PO DAILY #21 tab 08/18/20 Following Prescriptions Were Given to Patient: Prednisone [Deltasone] 40 mg PO DAILY #21 tab Transmission Status: Received by [facility] Primary Care Physician: Jennifer Coelho NP, [employer] [facility] [Primary Care Provider] - Please follow up with your Primary Care Physician in: 3-5 days Please Follow Up With: Brenden Ridley MD When: 2-4 weeks Disposition: Home Minutes spent on discharge:: 35 Patient Condition:: Stable Medical Necessity - Tobacco Use Smoking Status: Former smoker Tobacco Use: Cigarettes Meaningful Use Info Meaningful Use Diagnoses (Choose all that apply): None applicable Inpatient E&M: 12112 Disch Hosp
--- NOTE | 2020-08-19 15:25 | CASEMGMT ---
RN CM DC CALL- attempted call to phone. No answer. Antelmo GREGORYN RN ACM
--- NOTE | 2020-08-19 15:49 | CASEMGMT ---
ESTEPHANIA JUNIOR DC PHONE CALL DC DATE: 08.19.2020 DC DISPOSITION: Home DC DIAGNOSIS: SARS COVID 2 Intro role of CM to patient. She was on the phone with her Palliative Care physician due to increased pain issues. Unable to speak with CM at this time. Antelmo GREGORYN RN ACM
== END 2020-08-18 15:15 | disposition home or self-care (01) | DRG 137 ==
LOC: ED 15:19 → MS2 08-13 06:51
PROVIDERS: Internal Medicine; Internal Medicine Infectious Disease; Admitting Provider Internal Medicine; Emergency Provider Emergency Medicine; PCP Nurse Practitioner Family; Visit Provider Family Medicine
DX: U07.1 COVID-19 (principal); C92.10 Chronic myeloid leukemia, BCR/ABL-positive, not having achieved remission; E43 Unspecified severe protein-calorie malnutrition; J44.9 Chronic obstructive pulmonary disease, unspecified; K51.90 Ulcerative colitis, unspecified, without complications; J96.21 Acute and chronic respiratory failure with hypoxia; D69.6 Thrombocytopenia, unspecified; J12.89 Other viral pneumonia; I10 Essential (primary) hypertension; Z99.81 Dependence on supplemental oxygen; M79.7 Fibromyalgia; D64.9 Anemia, unspecified; K21.9 Gastro-esophageal reflux disease without esophagitis; F32.9 Major depressive disorder, single episode, unspecified; F41.1 Generalized anxiety disorder; E66.9 Obesity, unspecified; Z68.36 Body mass index [BMI] 36.0-36.9, adult; E87.6 Hypokalemia; Z79.899 Other long term (current) drug therapy; Z87.891 Personal history of nicotine dependence; Z91.14 Patient's other noncompliance with medication regimen; Z79.52 Long term (current) use of systemic steroids
CPT/HCPCS: 36415; 71045; 80053; 82550; 82552; 82962; 83605; 83735; 84100; 84145; 85025; 85027; 85379; 85384; 86850; 86900; 86901; 87040; 93005; 94640; 96365; 96366; 96367; 96372; 96375; 97110; 97116; 97162; 97165; 97530; 97535; 99221; 99251; 99285; J7040; J7050; A4216; G0378; G0463

== ENCOUNTER → 2020-11-30 11:56 | Outpatient (CLI) | payer MEDICAID, SELFPAY ==
[2020-10-05 13:01] VITALS: BMI 36.3
[2020-11-30 12:00] VITALS: PULSE 105; PULSE 120; PULSE 124; PULSE 125; PULSE 126; PULSE 127; PULSE 133; O2SAT 87; O2SAT 89; O2SAT 90; O2SAT 91
--- NOTE | 2020-11-30 13:21 | CPS ---
Patient states she wears 4L of oxygen at home. On room air prior to test, patient's sat's were 87%. Oxygen was initiated at 4L and sat's were maintained greater than 90% for the remainder of the test. Patient had to take multiple rests during the test, and stated that she feels very weak.
--- NOTE | 2020-12-01 13:49 | PCM.PSN.6M ---
PSN 6 Minute Walk Test - 6 Minute Walk Test 6 Minute Walk Test: 6 Minute Walk Test PSN:6-Minute Walk Test Start: 11/30/20 13:17 Freq: Status: Active Protocol: [id number].6MINW Document 11/30/20 12:00 (Rec: 11/30/20 13:24 [id number]) 6 Minute Walk Test Date Performed 11/30/20 Time Performed 12:00 Height 5 ft 2 in Weight: 180 lb Weight in Pounds 180.[address]: Brenden Ridley Assistive device used: Walker Pre-test Oxygen Flow Rate (L/min) (L/min) 4 Oxygen Delivery Method Nasal Cannula Pulse Ox (%) 87 Pulse Rate (60-100 beats/min) 105 H Dyspnea Curt Scale (0-10) 0 Exertion Curt Scale (6-20) 6 1st minute Oxygen Flow Rate (L/min) (L/min) 4 Oxygen Delivery Method Nasal Cannula Pulse Ox (%) 90 Pulse Rate (60-100 beats/min) 126 H Number of Rests Taken 1 2nd minute Oxygen Flow Rate (L/min) (L/min) 4 Oxygen Delivery Method Nasal Cannula Pulse Ox (%) 91 Pulse Rate (60-100 beats/min) 125 H Number of Rests Taken 1 3rd minute Oxygen Flow Rate (L/min) (L/min) 4 Oxygen Delivery Method Nasal Cannula Pulse Ox (%) 91 Pulse Rate (60-100 beats/min) 125 H 4th minute Oxygen Flow Rate (L/min) (L/min) 4 Oxygen Delivery Method Nasal Cannula Pulse Ox (%) 91 Pulse Rate (60-100 beats/min) 124 H 5th minute Oxygen Flow Rate (L/min) (L/min) 4 Oxygen Delivery Method Nasal Cannula Pulse Ox (%) 90 Pulse Rate (60-100 beats/min) 133 H Number of Rests Taken 1 6th minute Oxygen Flow Rate (L/min) (L/min) 4 Oxygen Delivery Method Nasal Cannula Pulse Ox (%) 89 Pulse Rate (60-100 beats/min) 127 H Number of Rests Taken 1 Post-test Oxygen Flow Rate (L/min) (L/min) 4 Oxygen Delivery Method Nasal Cannula Pulse Ox (%) 91 Pulse Rate (60-100 beats/min) 120 H Dyspnea Curt Scale (0-10) 5 Exertion Curt Scale (6-20) 14 Number of Rests Taken 1 Full Laps Walked 1 Partial Lap, Number of Tiles Walked 0 Total Distance Walked (ft) 59 11/30/20 13:21 Cardiopulmonary Services by Jessi Gentile Patient states she wears 4L of oxygen at home. On room air prior to test, patient's sat's were 87%. Oxygen was initiated at 4L and sat's were maintained greater than 90% for the remainder of the test. Patient had to take multiple rests during the test, and stated that she feels very weak. Initialized on 11/30/20 13:21 - END OF NOTE - Interpretation Interpretation: The patient ambulated 59 feet over the course of 6 minutes with use of a walker. Pretesting oxygen saturation was noted to be 87% on room air. 4 L/min of supplemental oxygen was subsequently applied and the patient was able to complete the remainder of the test while maintaining oxygen saturations at or above 88%. - Recommendations Recommendations: 4 L/min of supplemental oxygen should be utilized at all times.
== END ==
PROVIDERS: PCP Nurse Practitioner Family; Referring Provider Internal Medicine Critical Care Medicine; Visit Provider Internal Medicine Critical Care Medicine
DX: J96.11 Chronic respiratory failure with hypoxia (principal); J44.9 Chronic obstructive pulmonary disease, unspecified
CPT/HCPCS: 36415; 80053; 85025; 94618

== ENCOUNTER 2021-10-18 12:09 | Outpatient (CLI) | payer MEDICAID, SELFPAY ==
[2021-10-18 12:44] LABS: Absolute Lymphocyte Count 1.11 X10^3/uL (0.83-4.51); Absolute Neutrophil Count 13.6 X10^3/uL (2.0-7.7); Basophil# 0.02 X10^3/uL; Basophil% 0.1 % (0-1); Eosinophil# 0.03 X10^3/uL; Eosinophils% 0.2 % (0-5); Hematocrit 34.4 % (37-47); Hemoglobin 10.8 g/dL (12.0-15.0); Lymphocyte # 1.11 X10^3/ul (0.83-4.51); Mean Corp Hgb Conc 31.4 g/dL (32-36); Mean Corpuscular Hgb 31.8 pg (27.0-32.0); Mean Corpuscular Volume 101.2 fL (81-99); Mean Platelet Vol. 9.1 fl (6.2-12.0); Monocyte# 0.95 X10^3/uL; NRBC Flagged by Analyzer 0 % (0-5); Neutrophil # 13.61 X10^3/uL (2.7-7.7); Neutrophil % 85.9 % (47-70); Platelet Count 284 K/mm3 (150-450); RBC Distribution Width CV 15.2 % (11.6-14.6); RBC Distribution Width SD 57.1 fl (35.1-43.9); White Blood Count 15.9 K/mm3 (4.4-11.0)
[2021-10-18 13:26] LABS: ALB/GLOB Ratio 1.1 RATIO (0.9-2.4); AST(SGOT) 13 U/L (15-37); Alanine Aminotransfer ALT/SGPT 19 U/L (13-56); Albumin, Serum 3.1 g/dL (3.2-5.0); Alkaline Phosphatase 58 U/L (45-117); Anion Gap 5 (5-15); BUN 12 mg/dL (7-18); BUN/Creat Ratio 12.3 RATIO (10-20); Chloride 103 mmol/L (98-107); Creatinine, Serum 0.98 mg/dL (0.55-1.02); EST Glomerular Filtration Rate 62 mL/min (>60); Est Glom Filt Rate - Afr Amer 75 mL/min (>60); Globulin 2.8 g/dL (2.2-4.2); Glucose 93 mg/dL (74-106); Potassium 3.6 mmol/L (3.5-5.1); Protein, Total 5.9 g/dL (6.4-8.2); Sodium Level 142 mmol/L (136-145)
[2021-10-18 20:13] LABS: Xtra Tube EP Lab EXTRA TUBE
== END 2021-10-18 23:59 | disposition short-term general hospital (02) ==
PROVIDERS: PCP Nurse Practitioner Family; Referring Provider Internal Medicine Hematology & Oncology; Visit Provider Internal Medicine Hematology & Oncology
DX: C92.10 Chronic myeloid leukemia, BCR/ABL-positive, not having achieved remission (principal)
CPT/HCPCS: 36415; 80053; 85025

== ENCOUNTER 2022-01-05 11:12 | Emergency (ER) | payer MEDICAID, SELFPAY ==
[2022-01-05 11:14] VITALS: BP 158/96; PULSE 104; RESP 17; TEMP 36.8; O2SAT 98; BMI 31.1
--- NOTE | 2022-01-05 11:36 | EDS_ITS ---
HPI HPI - GI History of Present Illness Chief Complaint: Nausea/Vomiting Informant: patient Abdominal Pain/Flank Pain Onset: Today and Hours Context: Gradual Onset Timing: Continuous Nausea/Vomiting/Emesis GI Symptom: Positive for Vomiting Onset: Today Severity: Mild Diarrhea/Melena/Hematochezia GI Symptom: Positive for Diarrhea; Negative for Melena and Hematochezia Onset: Today Stool Quality: Positive for Loose and Watery Severity: Mild Associated Symptoms Associated Symptoms: Negative for Dysuria, Frequency, Hematuria and Urgency Narrative Narrative: 61-year-old female history of COPD on home oxygen and chronic myelogenous leukemia. She has been diagnosed with that for 5 to 7 years. She is on daily oral chemotherapy. States this morning around 2 AM started having nausea, vomiting and diarrhea. The only abdominal pain she states is cramping when she is having vomiting or diarrhea. She denies any fever. She denies any dysuria. She has had no recent hospitalization. Prior similar symptoms: Yes Recent Illness/Hospitalization: No PFSH PFS Medical History (Updated 01/05/22 @ 15:[address] Vernon Paulino MD) Carpal tunnel syndrome Chronic hypoxemic respiratory failure CML (chronic myelocytic leukemia) COVID-19 Depression Fibromyalgia DREW (generalized anxiety disorder) Nicotine abuse Obesity (BMI 30.0-34.9) Poor compliance with medication Stage 3 severe COPD by GOLD classification Tachycardia Ulcerative colitis Home Medications albuterol sulfate 2.5 mg INHALATION Q4H PRN PRN 10/18/18 [History Last Taken 08/12/20] diltiazem HCl 240 mg PO DAILY 10/18/18 [History Last Taken 08/12/20] alendronate 70 mg PO SA 07/06/20 [History Last Taken 07/31/20] alprazolam 0.5 mg tablet 0.5 mg PO Q6H PRN tab 11/03/20 [History Last Taken Unknown] buspirone 10 mg tablet 20 mg PO TID tab 11/03/20 [History Last Taken Unknown] diclofenac sodium 1 % topical gel 2 g TOPICAL Q6H PRN g 11/03/20 [History Last Taken Unknown] furosemide 40 mg tablet 40 mg PO DAILY PRN 11/03/20 [History Last Taken Unknown] loperamide 2 mg capsule 2 mg PO TID PRN cap 11/03/20 [History Last Taken Unknown] oxycodone 10 mg tablet 10 mg PO Q4H PRN 11/03/20 [History Last Taken Unknown] sertraline 100 mg tablet 75 mg PO DAILY 11/03/20 [History Last Taken Unknown] tizanidine 2 mg tablet 4 mg PO Q8H PRN tab 11/03/20 [History Last Taken Unknown] azelastine-fluticasone 137 mcg-50 mcg/spray nasal spray 1 spray INTRANASAL BID 01/04/21 [History Last Taken Unknown] cyclobenzaprine 5 mg tablet 5 mg PO TID PRN 01/04/21 [History Last Taken Unknown] albuterol sulfate 90 mcg/actuation aerosol inhaler 2 puff INHALATION Q4H PRN PRN #18 g 06/16/21 [Rx Last Taken Unknown] azelastine 137 mcg (0.1 %) nasal spray aerosol 1 spray INTRANASAL BID #30 ml 06/16/21 [Rx Last Taken Unknown] fluticasone propionate 50 mcg/actuation nasal spray,suspension 2 spray INTRANASAL DAILY #50 mcg 06/16/21 [Rx Last Taken Unknown] budesonide-formoterol HFA 160 mcg-4.5 mcg/actuation aerosol inhaler 2 puff INHALATION BID #10.2 g 11/16/21 [Rx Last Taken Unknown] prednisone 10 mg tablet 10 mg PO QDAY #90 tab 01/02/22 [Rx Last Taken Unknown] imatinib 400 mg tablet See Rx Instructions .ROUTE .COMPLEX #30 tablet 01/05/22 [Rx Last Taken Unknown] potassium chloride 20 meq PO BID 01/05/22 [History Last Taken Unknown] Allergy/AdvReac Type Severity Reaction Status Date / Time Penicillins Allergy Severe Hives Verified 11/16/21 10:50 Sulfa (Sulfonamide Allergy Intermediate Hives Verified 11/16/21 10:50 Antibiotics) azithromycin AdvReac Severe Diarrhea Verified 11/16/21 10:50 codeine AdvReac Severe Vomiting Verified 11/16/21 10:50 ondansetron [From Zofran] AdvReac Severe Nausea Verified 11/16/21 10:50 ondansetron HCl AdvReac Severe Nausea Verified 11/16/21 10:50 [From Zofran (as hydrochloride)] pregabalin [From Lyrica] AdvReac Severe i can't Verified 11/16/21 10:50 see propoxyphene napsylate AdvReac Severe Vomiting Verified 11/16/21 10:50 [From Darvocet-N 100] Family History Mother Ovarian cancer Brother Heart disease Grandmother Heart disease Grandfather Heart disease Surgical History History of cardiac cath History of cranial surgery History of hemorrhoidectomy History of hysterectomy Social History Smoking Status: Former smoker Tobacco: How many years used: 40 second hand exposure: No alcohol intake: never substance use type: does not use caffeine: Yes Type: carbonated beverages and tea leila/sabianism: None seatbelt use: always do you feel safe at home: Yes ROS ROS ED ROS Narrative Nausea, vomiting and diarrhea. Constitutional Constitutional ED: Denies fever(s) ENT ENT ED: Reports ear pain Cardiovascular Cardiovascular: Denies chest pain Respiratory/Chest Respiratory/Chest: Reports dyspnea Gastrointestinal Gastrointestinal: Reports diarrhea, nausea and vomiting; Denies abdominal pain, constipation or melena Genitourinary Genitourinary ED: Denies dysuria Musculoskeletal Musculoskeletal: Denies myalgias Integumentary Denies rash Neurologic Neurologic: Denies headache(s) Psychiatric Psychiatric: Denies depression Endocrine Endocrinology: Denies polyuria Hematologic/Lymphatic Hematologic/Lymphatic: Denies easy bruising Allergic/Immunologic Allergic/Immunologic ED: Denies urticaria EXAM Physical Exam Narrative Exam Narrative: 61-year-old female no acute distress. Vital signs stable afebrile on 4 L she is 98% no hypoxia. H EENT exam unremarkable atraumatic. Pupils round reactive light. Moist extremities. Neck nontender. Lungs coarse breath sounds bilaterally. No rales, rhonchi or wheezing at this time. Heart regular rhythm rate about 105 no murmur. Abdomen soft nondistended normal bowel sounds no peritoneal signs. No CVA tenderness. No hernia or mass. No signs of obstruction. Moving all 4 extremities. Equal symmetrical branch office administrator strength. Dorsi plantarflexion intact. Nontender no edema. Neurologically she is awake and alert with no focal motor deficits. Const Vital Signs: 01/05/22 11:14 01/05/22 12:10 01/05/22 13:23 Temperature 98.2 F Temperature Source Temporal Pulse Rate 104 H 88 Respiratory Rate 17 24 H Respiratory Pattern Tachypnea Blood Pressure 158/96 H Blood Pressure Mean 116 Pulse Ox 98 95 Oxygen Delivery Method Nasal Cannula Nasal Cannula Oxygen Flow Rate (L/min) 4 4 Positive well nourished, well developed and obese; Negative for cachectic, contractures or unkempt General Appearance ED: well developed and NAD; Negative for unkempt, cachectic, contractures or pallor Nutritional Appearance: obese; Negative for cachectic HEENT Reports moist mucous membranes normocephalic and atraumatic; Negative for trauma or tenderness Eyes PERRL and EOMs intact bilaterally General Eye ED: Negative for pale conjunctiva or scleral icterus Neck no lymphadenopathy, supple and no JVD General: Negative for tenderness Resp normal respiratory effort and clear to auscultation bilaterally Auscultation: Negative for rales, rhonchi or wheezes Cardio regular rhythm, S1 normal heart sound, S2 normal heart sound and no murmurs; Negative for regular rate Rate: tachycardic GI non-tender, non-distended and no masses Auscultation: normoactive bowel sounds Palpation: soft; Negative for tender, guarding or rigid Back/Spine no CVA tenderness General Back: Negative for CVA tenderness Cervical Spine: Negative for cervical spine tenderness Thoracic Spine / Upper Back: Negative for thoracic spinal tenderness Extremity full ROM General Extremety ED: Negative for edema or tenderness General Extremity: Negative for edema Neuro moves all extremities Sensorium / Orientation: alert, oriented to person, oriented to place and oriented to time; Negative for orientation impaired, confused, lethargic or stuporous Motor Exam: strength 5/5 throughout Psych mental status grossly normal and thought process normal Appearance: Negative for unkempt Skin no wounds General Skin Exam: Negative for jaundice or pallor Lesions: no lesions Rashes: no rashes MDM MDM MDM Narrative Medical decision making narrative: 61-year-old female with nausea vomiting diarrhea. Clinically most likely viral syndrome. She does have COPD which is her baseline and chronic myelogenous leukemia. She will be treated with IV fluids and IV Compazine due to a Zofran allergy. Screening labs will be obtaine d. Repeat exam patient is doing well. Nausea is improved. Feels comfortable being discharged home. Abdomen is benign. She and I discussed and went over her labs. 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 Fluids and rest. Increase your diet slowly. Return if feeling worse. Lab Data Attestation: I reviewed the patient's lab results. Lab results narrative: CBC shows a white count 10.5 H&H 10.3 and 32. Platelets 200. Electrolytes potassium 3.3 a gap of 5 normal BUN of 10 creatinine 0.79. Liver enzymes unremarkable. Labs: Laboratory Results - last 24 hr 01/05/22 01/05/22 11:30 11:30 WBC 10.5 RBC 3.22 L Hgb 10.3 L Hct 32.2 L MCV 100.0 H MCH 32.0 MCHC 32.0 RDW Std Deviation 53.6 H RDW Coeff of Noe 14.5 Plt Count 200 MPV 9.6 Immature Gran % (Auto) 0.600 Neut % (Auto) 72.0 H Lymph % (Auto) 16.7 L [place] % (Auto) 9.6 Eos % (Auto) 0.8 Baso % (Auto) 0.3 Absolute Neuts (auto) 7.5 Absolute Lymphs (auto) 1.74 Nucleated RBC % 0 Sodium 141 Potassium 3.3 L Chloride 104 Carbon Dioxide 32.0 Anion Gap 5 BUN 10 Creatinine 0.79 Estim Creat Clear Calc 60.64 Est GFR (MDRD) Af Amer 95 Est GFR (MDRD) Non-Af 79 BUN/Creatinine Ratio 12.6 Glucose 102 Calcium 8.7 Total Bilirubin 0.30 AST 11 L ALT 16 Alkaline Phosphatase 56 Total Protein 6.0 L Albumin 3.1 L Globulin 2.9 Albumin/Globulin Ratio 1.1 Discharge Plan Triage Chief Complaint: Nausea/Vomiting ED Provider: Vernon Paulino Dx/Rx/DC Orders Clinical Impression: Viral gastroenteritis, History of chronic myeloid leukemia Instructions: ED Gastroenteritis, Viral (Adult) Prescriptions: No Action buspirone 10 mg tablet 20 mg PO TID RF: 0 azelastine-fluticasone [Dymista] 137-50 mcg/spray spray,non-aerosol 1 spray INTRANASAL BID RF: 0 cyclobenzaprine 5 mg tablet 5 mg PO TID PRN (Reason: Muscle Spasm) RF: 0 furosemide 40 mg tablet 40 mg PO DAILY PRN (Reason: Swelling) RF: 0 loperamide 2 mg capsule 2 mg PO TID PRN (Reason: Diarrhea/Loose Stools) RF: 0 tizanidine 2 mg tablet 4 mg PO Q8H PRN (Reason: Muscle Spasm) RF: 0 sertraline 100 mg tablet 75 mg PO DAILY RF: 0 diclofenac sodium [Arthritis Pain (diclofenac)] 1 % gel 2 g TOPICAL Q6H PRN (Reason: Pain Score 1-10) RF: 0 oxycodone 10 mg tablet 10 mg PO Q4H PRN (Reason: Pain Score 1-10) RF: 0 budesonide-formoterol [Symbicort] 160-4.5 mcg/actuation HFA aerosol inhaler 2 puff INHALATION BID Qty: 10.2 RF: 11 albuterol sulfate 2.5 MG/3 ML solution for nebulization 2.5 mg INHALATION Q4H PRN PRN (Reason: Sob &/Or Wheezing) RF: 0 diltiazem HCl 240 MG capsule 240 mg PO DAILY RF: 0 alprazolam 0.5 mg tablet 0.5 mg PO Q6H PRN (Reason: Anxiety) RF: 0 alendronate 70 MG tablet 70 mg PO SA RF: 0 potassium chloride 20 mEq Tablet Extended Release 20 meq PO BID RF: 0 albuterol sulfate 90 mcg/actuation HFA aerosol inhaler 2 puff INHALATION Q4H PRN PRN (Reason: Sob &/Or Wheezing) Qty: 18 RF: 6 azelastine 137 mcg (0.1 %) aerosol,spray 1 spray INTRANASAL BID Qty: 30 RF: 5 fluticasone propionate 50 mcg/actuation spray,suspension 2 spray INTRANASAL DAILY Qty: 50 RF: 3 prednisone 10 mg tablet 10 mg PO QDAY Qty: 90 RF: 3 imatinib 400 mg tablet See Rx Instructions .ROUTE .COMPLEX Qty: 30 RF: 12 Primary Care Provider: Jennifer Coelho NP Referrals: Jennifer Coelho NP, [employer] [Primary Care Provider] - 3-5 Days if not improving Disposition Disposition: Home, Self Care
[2022-01-05] MEDS: 0.9% Normal Saline 1,000 ML 1000 ML IV (11:51)
[2022-01-05] MEDS: proCHLORPERazine 10 MG/2 ML Vial IV (11:52)
[2022-01-05 12:02] LABS: Absolute Lymphocyte Count 1.74 X10^3/uL (0.83-4.51); Absolute Neutrophil Count 7.5 X10^3/uL (2.0-7.7); Basophil# 0.03 X10^3/uL; Basophil% 0.3 % (0-1); Eosinophil# 0.08 X10^3/uL; Eosinophils% 0.8 % (0-5); Hematocrit 32.2 % (37-47); Hemoglobin 10.3 g/dL (12.0-15.0); Lymphocyte # 1.74 X10^3/ul (0.83-4.51); Lymphocyte % 16.7 % (19-41); Mean Platelet Vol. 9.6 fl (6.2-12.0); Monocyte% 9.6 % (0-10); NRBC Flagged by Analyzer 0 % (0-5); Neutrophil # 7.54 X10^3/uL (2.7-7.7); Platelet Count 200 K/mm3 (150-450); RBC Distribution Width CV 14.5 % (11.6-14.6); RBC Distribution Width SD 53.6 fl (35.1-43.9); Red Blood Count 3.22 M/mm3 (4.2-5.4); White Blood Count 10.5 K/mm3 (4.4-11.0)
[2022-01-05 12:10] VITALS: PULSE 88; RESP 24
[2022-01-05] MEDS: Albuterol 2.5 MG/3 ML VIAL.NEB. INHALATION (12:10)
[2022-01-05 12:18] LABS: ALB/GLOB Ratio 1.1 RATIO (0.9-2.4); AST(SGOT) 11 U/L (15-37); Alanine Aminotransfer ALT/SGPT 16 U/L (13-56); Albumin, Serum 3.1 g/dL (3.2-5.0); Alkaline Phosphatase 56 U/L (45-117); Anion Gap 5 (5-15); BUN 10 mg/dL (7-18); BUN/Creat Ratio 12.6 RATIO (10-20); Calcium,Total 8.7 mg/dL (8.5-10.1); Chloride 104 mmol/L (98-107); Creatinine, Serum 0.79 mg/dL (0.55-1.02); EST Glomerular Filtration Rate 79 mL/min (>60); Est Glom Filt Rate - Afr Amer 95 mL/min (>60); Estimated Creatinine Clearance 60.64 ml/min; Globulin 2.9 g/dL (2.2-4.2); Glucose 102 mg/dL (74-106); Potassium 3.3 mmol/L (3.5-5.1); Sodium Level 141 mmol/L (136-145)
[2022-01-05 13:23] VITALS: O2SAT 95
[2022-01-05 15:20] VITALS: BP 167/90; PULSE 104; RESP 16; O2SAT 96
--- NOTE | 2022-01-05 15:25 | NURSING ---
CALLED [facility], ETA IS 90 MIN
--- NOTE | 2022-01-05 16:39 | NURSING ---
[facility] WILL BE ANOTHER 3 HOURS
== END 2022-01-05 19:15 | disposition home or self-care (01) ==
PROVIDERS: Emergency Provider Emergency Medicine; PCP Nurse Practitioner Family; Visit Provider Emergency Medicine
DX: A08.4 Viral intestinal infection, unspecified (principal); C92.90 Myeloid leukemia, unspecified, not having achieved remission; J44.9 Chronic obstructive pulmonary disease, unspecified; K51.90 Ulcerative colitis, unspecified, without complications; J96.11 Chronic respiratory failure with hypoxia; Z87.891 Personal history of nicotine dependence; Z99.81 Dependence on supplemental oxygen; Z86.16 Personal history of COVID-19; F32.A Depression, unspecified; M79.7 Fibromyalgia; E66.9 Obesity, unspecified; F41.1 Generalized anxiety disorder; Z79.899 Other long term (current) drug therapy; Z68.31 Body mass index [BMI] 31.0-31.9, adult
CPT/HCPCS: 80053; 85025; 94640; 96361; 96374; 99285; J7030; A4216

== ENCOUNTER 2022-02-05 04:09 | Observation (INO) | payer MEDICAID, SELFPAY ==
[2022-02-05] VITALS (17 sets, daily range): BP systolic 93–138; BP diastolic 72–101; PULSE 90–119; RESP 16–22; TEMP 36.3–37.7; O2SAT 93–99; BMI 30.9; BMI 39.5
[2022-02-05] MEDS: proCHLORPERazine 10 MG/2 ML Vial IV (04:23)
[2022-02-05] MEDS: 0.9% Normal Saline 1,000 ML 1000 ML IV (04:23)
--- NOTE | 2022-02-05 04:23 | EDS_ITS ---
HPI HPI - GI History of Present Illness Chief Complaint: Nausea/Vomiting Narrative Narrative: 61-year-old female presenting with nausea/vomiting. She was seen in 05 January for similar symptoms. She denies diarrhea. She denies urinary complaints. Patient states that since that time when she was seen in the emergency room she has not followed up with anybody because she does not have transportation anywhere. Patient has history of CLL. She is on oral chemot herapy at home. She has history of COPD and is on her baseline 4 L of oxygen. She states she thought she had a fever before she came but took nothing for a fever and she is afebrile on arrival. Patient is a poor informant. Patient denies chest pain or shortness of breath. She does states she is some abdominal cramping with her nausea and vomiting. [facility] Medical History (Updated 02/05/22 @ 06:[address] Aashish Martinez MD) Carpal tunnel syndrome Chronic hypoxemic respiratory failure CML (chronic myelocytic leukemia) COVID-19 Depression Fibromyalgia DREW (generalized anxiety disorder) Nicotine abuse Obesity (BMI 30.0-34.9) Poor compliance with medication Stage 3 severe COPD by GOLD classification Tachycardia Ulcerative colitis Home Medications albuterol sulfate 2.5 mg INHALATION Q4H PRN PRN 10/18/18 [History Last Taken 08/12/20] diltiazem HCl 240 mg PO DAILY 10/18/18 [History Last Taken 08/12/20] alendronate 70 mg PO SA 07/06/20 [History Last Taken 07/31/20] alprazolam 0.5 mg tablet 0.5 - 1 mg PO Q6H PRN tab 11/03/20 [History Last Taken Unknown] buspirone 10 mg tablet 20 mg PO TID tab 11/03/20 [History Last Taken Unknown] furosemide 40 mg tablet 40 mg PO DAILY PRN 11/03/20 [History Last Taken Unknown] oxycodone 10 mg tablet 5 mg PO Q4H PRN 11/03/20 [History Last Taken Unknown] sertraline 100 mg tablet 75 mg PO DAILY 11/03/20 [History Last Taken Unknown] azelastine-fluticasone 137 mcg-50 mcg/spray nasal spray 1 spray INTRANASAL BID 01/04/21 [History Last Taken Unknown] cyclobenzaprine 5 mg tablet 5 mg PO 4X/DAY PRN PRN 01/04/21 [History Last Taken Unknown] albuterol sulfate 90 mcg/actuation aerosol inhaler 2 puff INHALATION Q4H PRN PRN #18 g 06/16/21 [Rx Last Taken Unknown] azelastine 137 mcg (0.1 %) nasal spray aerosol 1 spray INTRANASAL BID #30 ml 06/16/21 [Rx Last Taken Unknown] fluticasone propionate 50 mcg/actuation nasal spray,suspension 2 spray INTRANASAL DAILY #50 mcg 06/16/21 [Rx Last Taken Unknown] prednisone 10 mg tablet 10 mg PO QDAY #90 tab 01/02/22 [Rx Last Taken Unknown] potassium chloride 20 meq PO BID 01/05/22 [History Last Taken Unknown] budesonide-formoterol [Symbicort] 2 puff INHALATION BID 02/05/22 [History Last Taken Unknown] fexofenadine 180 mg PO DAILY 02/05/22 [History Last Taken Unknown] imatinib 400 mg PO DAILY 02/05/22 [History Last Taken Unknown] omeprazole 40 mg PO DAILY 02/05/22 [History Last Taken Unknown] prochlorperazine maleate 10 mg PO DAILY 02/05/22 [History Last Taken Unknown] tiotropium bromide [Spiriva Respimat] 1 puff INHALATION QHS 02/05/22 [History Last Taken Unknown] Allergy/AdvReac Type Severity Reaction Status Date / Time Penicillins Allergy Severe Hives Verified 02/05/22 04:15 Sulfa (Sulfonamide Allergy Intermediate Hives Verified 02/05/22 04:15 Antibiotics) azithromycin AdvReac Severe Diarrhea Verified 02/05/22 04:15 codeine AdvReac Severe Vomiting Verified 02/05/22 04:15 ondansetron [From Zofran] AdvReac Severe Nausea Verified 02/05/22 04:15 ondansetron HCl AdvReac Severe Nausea Verified 02/05/22 04:15 [From Zofran (as hydrochloride)] pregabalin [From Lyrica] AdvReac Severe i can't Verified 02/05/22 04:15 see propoxyphene napsylate AdvReac Severe Vomiting Verified 02/05/22 04:15 [From Darvocet-N 100] Family History Mother Ovarian cancer Brother Heart disease Grandmother Heart disease Grandfather Heart disease Surgical History History of cardiac cath History of cranial surgery History of hemorrhoidectomy History of hysterectomy Social History Smoking Status: Former smoker Tobacco: How many years used: 40 second hand exposure: No alcohol intake: never substance use type: does not use caffeine: Yes Type: carbonated beverages and tea leila/moravian: None seatbelt use: always do you feel safe at home: Yes ROS ROS ED Constitutional Constitutional ED: Reports subjective; Denies chills or sweats ENT ENT ED: Denies rhinorrhea or sore throat Cardiovascular Cardiovascular: Denies chest pain or palpitations Respiratory/Chest Respiratory/Chest: Denies cough, dyspnea or sputum Gastrointestinal Gastrointestinal: Reports nausea and vomiting; Denies abdominal pain or diarrhea Genitourinary Genitourinary ED: Denies dysuria, hematuria or urinary frequency Musculoskeletal Musculoskeletal: Denies arthralgias or myalgias Integumentary Denies rash Neurologic Neurologic: Denies headache(s) or paresthesias Psychiatric Psychiatric: Denies anxiety or depression EXAM Physical Exam Const Vital Signs: 02/05/22 04:09 02/05/22 04:13 02/05/22 05:31 Temperature 97.3 F L 97.6 F L 98.3 F Temperature Source Temporal Temporal Temporal Pulse Rate 99 99 114 H Respiratory Rate 18 18 22 H Blood Pressure 116/87 H 116/87 H 125/87 H Blood Pressure Mean 96 96 99 Pulse Ox 93 93 99 Oxygen Delivery Method Nasal Cannula Nasal Cannula Nasal Cannula Oxygen Flow Rate (L/min) 4 4 4 Positive well nourished General Appearance ED: NAD; Negative for pallor HEENT Reports dry mucous membranes normocephalic and atraumatic Mouth ED: Yes dry mucous membranes Mouth: dry mucous membranes Eyes PERRL and EOMs intact bilaterally General Eye ED: Negative for pale conjunctiva or scleral icterus Resp normal respiratory effort and clear to auscultation bilaterally Cardio regular rate and regular rhythm GI non-tender and non-distended Auscultation: normoactive bowel sounds Palpation: soft Back/Spine no CVA tenderness Neuro Sensorium / Orientation: alert, oriented to person, oriented to place and oriented to time Psych thought process normal Skin General Skin Exam: Negative for jaundice or pallor Lesions: no lesions Rashes: no rashes MDM MDM MDM Narrative Medical decision making narrative: Patient presenting with nausea/vomiting. She is given a liter normal saline. Based on her history is allergic to Zofran she was given Compazine which she was given before with some success. Blood work is obtained and her CBC shows no leukocytosis. Hemoglobin stable at 10.4. Platelets low at 119. Renal function is normal. Potassium slightly low at 2.8 and she is given oral potassium 40 mill equivalents. Magnesium was sent. Urinalysis negative for infection. There are 5 urine ketones. Initial vital signs documented show that the patient's pulse ox is 93 however its 95 to 97% when I am in the room and while she is talking. I did watch this on the monitor it did not change. Magnesium was low at 1.0. Initially she was given 40 mEq of potassium however she is going to need IV magnesium. She was initially given 4 g of IV magnesium in the ER with cellulitic borders. She will also probably need IV potassium. Due to the extended amount of time the patient will need repletion of her electrolytes she will be admitted to the hospital. Impression: 1. Gastritis 2. Hypokalemia 3. hypomagnesemia Lab Data Attestation: I reviewed the patient's lab results. Labs: Laboratory Results - last 24 hr 02/05/22 02/05/22 02/05/22 04:20 04:20 04:20 WBC 8.5 RBC 3.29 L Hgb 10.4 L Hct 32.4 L MCV 98.5 MCH 31.6 MCHC 32.1 RDW Std Deviation 52.9 H RDW Coeff of Noe 14.6 Plt Count 119 L MPV 9.7 Immature Gran % (Auto) 0.500 Neut % (Auto) 73.2 H Lymph % (Auto) 16.0 L [place] % (Auto) 9.4 Eos % (Auto) 0.7 Baso % (Auto) 0.2 Absolute Neuts (auto) 6.2 Absolute Lymphs (auto) 1.36 Nucleated RBC % 0 Sodium 139 Potassium 2.8 L Chloride 103 Carbon Dioxide 32.0 Anion Gap 4 L BUN 8 Creatinine 0.80 Estim Creat Clear Calc 59.89 Est GFR (MDRD) Af Amer 95 Est GFR (MDRD) Non-Af 78 BUN/Creatinine Ratio 10.0 Glucose 135 H Calcium 7.3 L Magnesium 1.0 L Total Bilirubin 0.80 AST 12 L ALT 15 Alkaline Phosphatase 48 Total Protein 5.2 L Albumin 2.5 L Globulin 2.7 Albumin/Globulin Ratio 0.9 Urine Color Urine Clarity Urine pH Ur Specific [place] Urine Protein Urine Glucose (UA) Urine Ketones Urine Occult Blood Urine Nitrite Urine Bilirubin Urine Urobilinogen Ur Leukocyte Esterase Urine RBC Urine WBC Ur Squamous Epith Cells Urine Bacteria Urine Mucus 02/05/22 04:35 WBC RBC Hgb Hct MCV MCH MCHC RDW Std Deviation RDW Coeff of Noe Plt Count MPV Immature Gran % (Auto) Neut % (Auto) Lymph % (Auto) [place] % (Auto) Eos % (Auto) Baso % (Auto) Absolute Neuts (auto) Absolute Lymphs (auto) Nucleated RBC % Sodium Potassium Chloride Carbon Dioxide Anion Gap BUN Creatinine Estim Creat Clear Calc Est GFR (MDRD) Af Amer Est GFR (MDRD) Non-Af BUN/Creatinine Ratio Glucose Calcium Magnesium Total Bilirubin AST ALT Alkaline Phosphatase Total Protein Albumin Globulin Albumin/Globulin Ratio Urine Color Yellow Urine Clarity Clear Urine pH 7.0 Ur Specific [place] 1.010 Urine Protein 15 H Urine Glucose (UA) Normal Urine Ketones 5 H Urine Occult Blood 25 H Urine Nitrite Negative Urine Bilirubin Negative Urine Urobilinogen 4 H Ur Leukocyte Esterase Negative Urine RBC 0 SEEN Urine WBC 0 SEEN Ur Squamous Epith Cells 0 SEEN Urine Bacteria 0 SEEN Urine Mucus 0 SEEN Discharge Plan Disposition Disposition: Acute Care Hospital [facility] Discharge Date/Time: 02/05/22 05:58
[2022-02-05 04:35] LABS: Absolute Lymphocyte Count 1.36 X10^3/uL (0.83-4.51); Absolute Neutrophil Count 6.2 X10^3/uL (2.0-7.7); Basophil# 0.02 X10^3/uL; Basophil% 0.2 % (0-1); Eosinophil# 0.06 X10^3/uL; Eosinophils% 0.7 % (0-5); Hematocrit 32.4 % (37-47); Hemoglobin 10.4 g/dL (12.0-15.0); Lymphocyte # 1.36 X10^3/ul (0.83-4.51); Mean Corp Hgb Conc 32.1 g/dL (32-36); Mean Corpuscular Hgb 31.6 pg (27.0-32.0); Mean Corpuscular Volume 98.5 fL (81-99); Mean Platelet Vol. 9.7 fl (6.2-12.0); Monocyte% 9.4 % (0-10); NRBC Flagged by Analyzer 0 % (0-5); Neutrophil # 6.24 X10^3/uL (2.7-7.7); Neutrophil % 73.2 % (47-70); Platelet Count 119 K/mm3 (150-450); RBC Distribution Width CV 14.6 % (11.6-14.6); RBC Distribution Width SD 52.9 fl (35.1-43.9); Red Blood Count 3.29 M/mm3 (4.2-5.4); White Blood Count 8.5 K/mm3 (4.4-11.0)
[2022-02-05 04:38] LABS: Bacteria 0 SEEN /hpf (None Seen); Mucous, Urine 0 SEEN /hpf (<or=2+); Red Blood Cells-Urine 0 SEEN /hpf (0-5); Squamous Epithelial Cells - UA 0 SEEN /hpf (5-10); White Blood Cells 0 SEEN /hpf (0-5)
[2022-02-05 04:42] LABS: Color, Urine Yellow (Yellow); Glucose, Dipstick Normal (Normal); Ketone-Dipstick 5 mg/dl (Negative); Leukocyte Esterase-Dipstick Negative /ul (Negative); Nitrite-Dipstick Negative (Negative); Occult Blood-Urine 25 /ul (Negative); Protein-Dipstick 15 mg/dl (Negative); Urine Bilirubin Dipstick Negative (Negative); Urine Clarity Clear (Clear); Urine Urobilinogen 4 mg/dl (Normal)
[2022-02-05 04:53] LABS: ALB/GLOB Ratio 0.9 RATIO (0.9-2.4); AST(SGOT) 12 U/L (15-37); Alanine Aminotransfer ALT/SGPT 15 U/L (13-56); Albumin, Serum 2.5 g/dL (3.2-5.0); Alkaline Phosphatase 48 U/L (45-117); Anion Gap 4 (5-15); BUN 8 mg/dL (7-18); Calcium,Total 7.3 mg/dL (8.5-10.1); Chloride 103 mmol/L (98-107); EST Glomerular Filtration Rate 78 mL/min (>60); Est Glom Filt Rate - Afr Amer 95 mL/min (>60); Estimated Creatinine Clearance 59.89 ml/min; Globulin 2.7 g/dL (2.2-4.2); Glucose 135 mg/dL (74-106); Potassium 2.8 mmol/L (3.5-5.1); Protein, Total 5.2 g/dL (6.4-8.2); Sodium Level 139 mmol/L (136-145)
[2022-02-05] MEDS: Potassium Chloride Oral Tablet 20 MEQ 40 MEQ PO (05:01)
--- NOTE | 2022-02-05 05:26 | PCM.HP.STD ---
HPI - General General Date of Admission: 02/05/22 HPI Narrative CHAU LINDSAY, is a 61 F with a significant history of COPD on 4 L nasal cannula oxygen and on inhalers; anxiety disorder on buspirone; CML on prednisone and imatinib who presents to the emergency department with 2-week history of progressive worsening nausea and vomiting. Associated with symptom is abdominal pain. Patient denies diarrhea or constipation. She denies fever. She reports anorexia. [facility] Medical History Carpal tunnel syndrome Chronic hypoxemic respiratory failure CML (chronic myelocytic leukemia) COVID-19 Depression Fibromyalgia DREW (generalized anxiety disorder) Nicotine abuse Obesity (BMI 30.0-34.9) Poor compliance with medication Stage 3 severe COPD by GOLD classification Tachycardia Ulcerative colitis Home Medications albuterol sulfate 2.5 mg INHALATION Q4H PRN PRN 10/18/18 [History Last Taken 08/12/20] diltiazem HCl 240 mg PO DAILY 10/18/18 [History Last Taken 08/12/20] alendronate 70 mg PO SA 07/06/20 [History Last Taken 07/31/20] alprazolam 0.5 mg tablet 0.5 - 1 mg PO Q6H PRN tab 11/03/20 [History Last Taken Unknown] buspirone 10 mg tablet 20 mg PO TID tab 11/03/20 [History Last Taken Unknown] furosemide 40 mg tablet 40 mg PO DAILY PRN 11/03/20 [History Last Taken Unknown] oxycodone 10 mg tablet 5 mg PO Q4H PRN 11/03/20 [History Last Taken Unknown] sertraline 100 mg tablet 75 mg PO DAILY 11/03/20 [History Last Taken Unknown] azelastine-fluticasone 137 mcg-50 mcg/spray nasal spray 1 spray INTRANASAL BID 01/04/21 [History Last Taken Unknown] cyclobenzaprine 5 mg tablet 5 mg PO 4X/DAY PRN PRN 01/04/21 [History Last Taken Unknown] albuterol sulfate 90 mcg/actuation aerosol inhaler 2 puff INHALATION Q4H PRN PRN #18 g 06/16/21 [Rx Last Taken Unknown] azelastine 137 mcg (0.1 %) nasal spray aerosol 1 spray INTRANASAL BID #30 ml 06/16/21 [Rx Last Taken Unknown] fluticasone propionate 50 mcg/actuation nasal spray,suspension 2 spray INTRANASAL DAILY #50 mcg 06/16/21 [Rx Last Taken Unknown] prednisone 10 mg tablet 10 mg PO QDAY #90 tab 01/02/22 [Rx Last Taken Unknown] potassium chloride 20 meq PO BID 01/05/22 [History Last Taken Unknown] budesonide-formoterol [Symbicort] 2 puff INHALATION BID 02/05/22 [History Last Taken Unknown] fexofenadine 180 mg PO DAILY 02/05/22 [History Last Taken Unknown] imatinib 400 mg PO DAILY 02/05/22 [History Last Taken Unknown] omeprazole 40 mg PO DAILY 02/05/22 [History Last Taken Unknown] prochlorperazine maleate 10 mg PO DAILY 02/05/22 [History Last Taken Unknown] tiotropium bromide [Spiriva Respimat] 1 puff INHALATION QHS 02/05/22 [History Last Taken Unknown] Allergy/AdvReac Type Severity Reaction Status Date / Time Penicillins Allergy Severe Hives Verified 02/05/22 04:15 Sulfa (Sulfonamide Allergy Intermediate Hives Verified 02/05/22 04:15 Antibiotics) azithromycin AdvReac Severe Diarrhea Verified 02/05/22 04:15 codeine AdvReac Severe Vomiting Verified 02/05/22 04:15 ondansetron [From Zofran] AdvReac Severe Nausea Verified 02/05/22 04:15 ondansetron HCl AdvReac Severe Nausea Verified 02/05/22 04:15 [From Zofran (as hydrochloride)] pregabalin [From Lyrica] AdvReac Severe i can't Verified 02/05/22 04:15 see propoxyphene napsylate AdvReac Severe Vomiting Verified 02/05/22 04:15 [From Darvocet-N 100] Family History Mother Ovarian cancer Brother Heart disease Grandmother Heart disease Grandfather Heart disease Surgical History History of cardiac cath History of cranial surgery History of hemorrhoidectomy History of hysterectomy Social History Smoking Status: Former smoker Tobacco: How many years used: 40 second hand exposure: No alcohol intake: never substance use type: does not use caffeine: Yes Type: carbonated beverages and tea leila/hindu: None seatbelt use: always do you feel safe at home: Yes ROS ROS Narrative Pertinent positives and pertinent negatives as noted in HPI. All other systems were reviewed and are negative. Vital Signs Vital Signs Vital Signs: 02/05/22 04:09 02/05/22 04:13 Temperature 97.3 F L 97.6 F L Temperature Source Temporal Temporal Pulse Rate 99 99 Respiratory Rate 18 18 Blood Pressure 116/87 H 116/87 H Blood Pressure Mean 96 96 Pulse Ox 93 93 Oxygen Delivery Method Nasal Cannula Nasal Cannula Oxygen Flow Rate (L/min) 4 4 Weight Weight: 76.8 kg Body Mass Index (BMI) 30.9 Physical Exam Narrative Physical exam: General: Well-nourished, well-developed. Head: Normocephalic, atraumatic, no tenderness Eyes: Vision is grossly intact. EOMI ENT, no trauma, moist mucous membranes, no rhinorrhea Neck: Nontender, full range of motion, no spinal tenderness, deformities, step-off CVS: Regular rate and rhythm. S1-S2 present. No murmur, gallop or rub. Respiratory : Bibasilar rales, chest wall nontender, no wheezing Abdomen: Soft, nontender, nondistended, normal bowel sounds, no masses : Deferred Back: Nontender, no CVA tenderness, no midline spinal tenderness, deformities, step-offs Extremities: Nontender full range of motion, no trauma Skin: Normal color, no trauma, abrasions Neuro: Alert, oriented, cranial nerves II through XII grossly intact. Psychiatry: Normal mood. Normal affect. Not depressed. Not anxious. Results Lab / Micro Data Result Diagrams: 02/05/22 04:20 02/05/22 04:20 Labs: Laboratory Results - last 24 hr 02/05/22 04:20: WBC 8.5, RBC 3.29 L, Hgb 10.4 L, Hct 32.4 L, MCV 98.5, MCH 31.6, MCHC 32.1, RDW Std Deviation 52.9 H, RDW Coeff of Noe 14.6, Plt Count 119 L, MPV 9.7, Immature Gran % (Auto) 0.500, Neut % (Auto) 73.2 H, Lymph % (Auto) 16.0 L, [place] % (Auto) 9.4, Eos % (Auto) 0.7, Baso % (Auto) 0.2, Absolute Neuts (auto) 6.2, Absolute Lymphs (auto) 1.36, Nucleated RBC % 0 02/05/22 04:20: Sodium 139, Potassium 2.8 L, Chloride 103, Carbon Dioxide 32.0, Anion Gap 4 L, BUN 8, Creatinine 0.80, Estim Creat Clear Calc 59.89, Est GFR (MDRD) Af Amer 95, Est GFR (MDRD) Non-Af 78, BUN/Creatinine Ratio 10.0, Glucose 135 H, Calcium 7.3 L, Total Bilirubin 0.80, AST 12 L, ALT 15, Alkaline Phosphatase 48, Total Protein 5.2 L, Albumin 2.5 L, Globulin 2.7, Albumin/Globulin Ratio 0.9 02/05/22 04:20: Magnesium 1.0 L 02/05/22 04:35: Urine Color Yellow, Urine Clarity Clear, Urine pH 7.0, Ur Specific [place] 1.010, Urine Protein 15 H, Urine Glucose (UA) Normal, Urine Ketones 5 H, Urine Occult Blood 25 H, Urine Nitrite Negative, Urine Bilirubin Negative, Urine Urobilinogen 4 H, Ur Leukocyte Esterase Negative, Urine RBC 0 SEEN, Urine WBC 0 SEEN, Ur Squamous Epith Cells 0 SEEN, Urine Bacteria 0 SEEN, Urine Mucus 0 SEEN Assessment & Plan Assessment/Plan (1) Nausea & vomiting: QUALIFIERS: Vomiting type: unspecified Qualified Code(s): R11.2 - Nausea with vomiting, unspecified PLAN: Nausea and vomiting Review of records: Patient was at Hospital ED ([facility] on January 05, 2022 for nausea vomiting and diarrhea that was attributed to likely viral syndrome. She was to follow-up after discharge but reportedly she did not have transportation so could not follow-up. CBC reviewed showed normal white count but with mild neutrophilia and lymphopenia. Urinalysis is negative for leukocyte esterase and nitrite. No pyuria. With chronic positive urine occult blood and mild proteinuria. Patient is allergic to Zofran. Compazine IV ordered at the emergency department and continued on as needed basis. Hold home Protonix 40 mg p.o. daily. Protonix 40 mg IV twice daily ordered. Home Percocet as needed continued. H. pylori test ordered. Home Lasix that patient says she takes as needed because of steroids held. Supportive treatment with normal saline with potassium supplementation. Hypokalemia Potassium was 2.8 at emergency department. Received 40 mEq p.o. potassium at the emergency department. Review of record shows a history of hypokalemia. Normal saline with IV potassium ordered. Continue home Jar[place] supplementation. Trend BMP Pseudo-hypocalcemia Calcium level of 7.3. Albumin of 2.5. Corrected calcium of 8.5. Trend CBC Chronic anemia Stable Trend CBC Hypertension Blood pressure is not within goal Cardizem continued. Lasix held secondary to nausea and vomiting. Trend blood pressure and adjust blood pressure medications. Hypomagnesemia Magnesium level of 1.0 emergency department. Magnesium replacement ordered emergency department. DVT prophylaxis: SCDs ordered Charges/Coding Visit Charges OBSV E&M: 23112 Initial observation care L3
[2022-02-05] MEDS: Magnesium Sulfate 4gm/100mL 4 GM/100 ML IV.SOLN. IV (05:29)
[2022-02-05] MEDS: Ipratropium/Albuterol Sulfate 3 ML AMPUL.NEB INHALATION ×3 (07:55→19:35)
[2022-02-05] MEDS: Potassium Chloride 40 MEQ in 0.9% Normal Saline 1,000 ML 75 MEQ IV ×2 (08:10→21:53)
[2022-02-05] MEDS: busPIRone 5 MG Tablet 20 MG PO ×3 (08:11→22:10)
[2022-02-05] MEDS: dilTIAZem CD 240 MG Capsule PO (08:12)
[2022-02-05] MEDS: Loratadine 10 MG Tablet PO (08:12)
[2022-02-05] MEDS: Potassium Chloride Oral Tablet 20 MEQ PO ×2 (08:12→17:25)
[2022-02-05] MEDS: predniSONE 10 MG Tablet PO (08:12)
[2022-02-05] MEDS: Sertraline 50 MG Tablet 75 MG PO (08:13)
[2022-02-05 11:21] LABS: Bedside Glucose 132 mg/dL (74-106)
--- NOTE | 2022-02-05 11:41 | PN.HOSP_ITS ---
Subjective Subjective 61-year-old female with multiple comorbidities including COPD on 4 L of oxygen who comes in with progressive worsening nausea and vomiting as well as abdominal pain. Patient was admitted in the early hours of this morning. Patient was found to have electrolyte imbalances. This has been replaced No diarrhea, nausea or vomiting since being admitted. Vitals reviewed, stable, slightly tachycardic She will continue to be monitored Objective Data Objective Data Vital Signs: Vital Signs Temp Pulse Resp BP Pulse Ox 99 F 106 H 18 115/72 97 02/05/22 09:00 02/05/22 09:00 02/05/22 09:00 02/05/22 09:00 02/05/22 09:00 Oxygen Flow Rate (L/min) 4 Oxygen Delivery Method Nasal Cannula Weight: 97.4 kg Body Mass Index (BMI) 39.5 Intake & Output: Intake and Output for Last 24 Hours 02/03/22 02/04/22 02/05/22 23:59 23:59 23:59 Intake Total 1210 / 1210 Balance 1210 / 1210 Lab / Micro Data Result Diagrams: 02/05/22 04:20 02/05/22 04:20 Labs: Laboratory Results - last 24 hr 02/05/22 04:20: WBC 8.5, RBC 3.29 L, Hgb 10.4 L, Hct 32.4 L, MCV 98.5, MCH 31.6, MCHC 32.1, RDW Std Deviation 52.9 H, RDW Coeff of Noe 14.6, Plt Count 119 L, MPV 9.7, Immature Gran % (Auto) 0.500, Neut % (Auto) 73.2 H, Lymph % (Auto) 16.0 L, [place] % (Auto) 9.4, Eos % (Auto) 0.7, Baso % (Auto) 0.2, Absolute Neuts (auto) 6.2, Absolute Lymphs (auto) 1.36, Nucleated RBC % 0 02/05/22 04:20: Sodium 139, Potassium 2.8 L, Chloride 103, Carbon Dioxide 32.0, Anion Gap 4 L, BUN 8, Creatinine 0.80, Estim Creat Clear Calc 59.89, Est GFR (MDRD) Af Amer 95, Est GFR (MDRD) Non-Af 78, BUN/Creatinine Ratio 10.0, Glucose 135 H, Calcium 7.3 L, Total Bilirubin 0.80, AST 12 L, ALT 15, Alkaline Phosphatase 48, Total Protein 5.2 L, Albumin 2.5 L, Globulin 2.7, Albumin/Globulin Ratio 0.9 02/05/22 04:20: Magnesium 1.0 L 02/05/22 04:35: Urine Color Yellow, Urine Clarity Clear, Urine pH 7.0, Ur Specific [place] 1.010, Urine Protein 15 H, Urine Glucose (UA) Normal, Urine Ketones 5 H, Urine Occult Blood 25 H, Urine Nitrite Negative, Urine Bilirubin Ne gative, Urine Urobilinogen 4 H, Ur Leukocyte Esterase Negative, Urine RBC 0 S EEN, Urine WBC 0 SEEN, Ur Squamous Epith Cells 0 SEEN, Urine Bacteria 0 SEEN, Urine Mucus 0 SEEN 02/05/22 11:14: POC Glucose 132 H Charges/Coding Visit Charges Inpatient E&M: 69944 Subs Hosp L2
[2022-02-05] MEDS: Acetaminophen 325 MG Tablet 650 MG PO ×2 (12:31→18:27)
[2022-02-05] MEDS: oxyCODONE 5 MG Tablet PO ×2 (12:31→18:27)
[2022-02-05] MEDS: proMETHazine 25 MG/ML Syringe 6.25 MG IM (13:42)
[2022-02-05] MEDS: ALPRAZolam 0.5 MG Tablet PO (22:13)
[2022-02-06] VITALS (13 sets, daily range): BP systolic 103–116; BP diastolic 74–89; PULSE 53–119; RESP 16–22; TEMP 37–37.4; O2SAT 91–96
[2022-02-06] MEDS: Albuterol 2.5 MG/3 ML VIAL.NEB. INHALATION (03:40)
[2022-02-06] MEDS: proMETHazine 25 MG/ML Syringe 6.25 MG IM (05:54)
[2022-02-06] MEDS: busPIRone 5 MG Tablet 20 MG PO ×3 (05:57→21:49)
[2022-02-06 06:01] LABS: Absolute Lymphocyte Count 1.08 X10^3/uL (0.83-4.51); Absolute Neutrophil Count 6.5 X10^3/uL (2.0-7.7); Basophil# 0.01 X10^3/uL; Basophil% 0.1 % (0-1); Eosinophil# 0.08 X10^3/uL; Hematocrit 27.2 % (37-47); Hemoglobin 8.6 g/dL (12.0-15.0); Lymphocyte # 1.08 X10^3/ul (0.83-4.51); Lymphocyte % 13.1 % (19-41); Mean Corp Hgb Conc 31.6 g/dL (32-36); Mean Corpuscular Hgb 31.5 pg (27.0-32.0); Mean Corpuscular Volume 99.6 fL (81-99); Mean Platelet Vol. 9.9 fl (6.2-12.0); Monocyte# 0.59 X10^3/uL; Monocyte% 7.2 % (0-10); NRBC Flagged by Analyzer 0 % (0-5); Neutrophil # 6.45 X10^3/uL (2.7-7.7); Neutrophil % 78.2 % (47-70); Platelet Count 111 K/mm3 (150-450); RBC Distribution Width CV 14.8 % (11.6-14.6); RBC Distribution Width SD 53.6 fl (35.1-43.9); Red Blood Count 2.73 M/mm3 (4.2-5.4); White Blood Count 8.2 K/mm3 (4.4-11.0)
[2022-02-06] MEDS: oxyCODONE 5 MG Tablet PO ×3 (06:21→22:12)
[2022-02-06] MEDS: ALPRAZolam 0.5 MG Tablet PO ×2 (06:21→22:12)
[2022-02-06 06:24] LABS: BUN 8 mg/dL (7-18); BUN/Creat Ratio 11.3 RATIO (10-20); Calcium,Total 7.5 mg/dL (8.5-10.1); Chloride 110 mmol/L (98-107); Creatinine, Serum 0.71 mg/dL (0.55-1.02); EST Glomerular Filtration Rate 90 mL/min (>60); Est Glom Filt Rate - Afr Amer 108 mL/min (>60); Estimated Creatinine Clearance 64.38 ml/min; Glucose 106 mg/dL (74-106); Magnesium 2.3 mg/dL (1.6-2.6); Potassium 4.3 mmol/L (3.5-5.1); Sodium Level 140 mmol/L (136-145)
[2022-02-06 06:25] LABS: Anion Gap 2 (5-15)
[2022-02-06] MEDS: Ipratropium/Albuterol Sulfate 3 ML AMPUL.NEB INHALATION ×3 (07:08→19:39)
[2022-02-06] MEDS: Sertraline 50 MG Tablet 75 MG PO (08:12)
[2022-02-06] MEDS: predniSONE 10 MG Tablet PO (08:13)
[2022-02-06] MEDS: dilTIAZem CD 240 MG Capsule PO (08:13)
[2022-02-06] MEDS: Potassium Chloride Oral Tablet 20 MEQ PO ×2 (08:13→16:10)
[2022-02-06] MEDS: Loratadine 10 MG Tablet PO (08:14)
--- NOTE | 2022-02-06 09:46 | PN.HOSP_ITS ---
Subjective Subjective Patient seen and examined. She still complains of nausea; she hasnt had any vomiting though overnight. She denies any diarrhea. Review of systems is otherwise negative. She has remained hemodynamically stable. Objective Data Objective Data Vital Signs: Vital Signs Temp Pulse Resp BP Pulse Ox 98.7 F 104 H 16 116/74 96 02/06/22 08:00 02/06/22 08:00 02/06/22 08:00 02/06/22 08:00 02/06/22 08:00 Oxygen Flow Rate (L/min) 4 Oxygen Delivery Method Room Air Weight: 212 lb 8.41 oz Body Mass Index (BMI) 39.5 Intake & Output: Intake and Output for Last 24 Hours 02/04/22 02/05/22 02/06/22 23:59 23:59 23:59 Intake Total 2940 / 2940 850 / 850 Output Total 100 / 100 Balance 2840 / 2840 850 / 850 Lab / Micro Data Result Diagrams: 02/06/22 05:35 02/06/22 05:35 Labs: Laboratory Results - last 24 hr 02/05/22 11:14: POC Glucose 132 H 02/06/22 05:35: WBC 8.2, RBC 2.73 L, Hgb 8.6 L, Hct 27.2 L, MCV 99.6 H, MCH 31.5, MCHC 31.6 L, RDW Std Deviation 53.6 H, RDW Coeff of Noe 14.8 H, Plt Count 111 L, MPV 9.9, Immature Gran % (Auto) 0.400, Neut % (Auto) 78.2 H, Lymph % (Auto) 13.1 L, [place] % (Auto) 7.2, Eos % (Auto) 1.0, Baso % (Auto) 0.1, Absolute Neuts (auto) 6.5, Absolute Lymphs (auto) 1.08, Nucleated RBC % 0 02/06/22 05:35: Sodium 140, Potassium 4.3, Chloride 110 H, Carbon Dioxide 28.0, Anion Gap 2 L, BUN 8, Creatinine 0.71, Estim Creat Clear Calc 64.38, Est GFR (MDRD) Af Amer 108, Est GFR (MDRD) Non-Af 90, BUN/Creatinine Ratio 11.3, Glucose 106, Calcium 7.5 L, Magnesium 2.3 Physical Exam Const alert, oriented x3 and no apparent distress Exam Limitations: no limitations HEENT head/scalp atraumatic and moist oral mucous membranes Head and Scalp: normocephalic Eyes PERRL, EOMs intact bilaterally and conjunctivae normal Neck no lymphadenopathy, supple and no JVD Resp Resp Narrative: mildly diminished breath sounds bibasally, no wheezes or crackles. On 4L of oxygen by nasal canula, which is her baseline Cardio regular rate, regular rhythm, S1 normal heart sound, S2 normal heart sound and no murmurs GI normal to inspection, nondistended, normoactive bowel sounds, soft to palpation, non-tender and non-distended Extremity normal to inspection, full ROM and no clubbing, cyanosis or edema Peripheral Pulses: Yes pulses 2+ throughout Skin no rashes or lesions noted Neuro oriented x3, CN's II-XII intact bilaterally and moves all extremities Sensorium / Orientation: awake and alert Psych affect normal Assessment & Plan Assessment/Plan (1) Nausea & vomiting: QUALIFIERS: Vomiting type: unspecified Qualified Code(s): R11.2 - Nausea with vomiting, unspecified PLAN: #Nausea and vomiting * vomiting seems to have resolved, and nausea is improving * on IM phenergen and compazine * hydrate gently with IVF * on IV PPI * will continue to monitor * #Hypokalemia: resolved. K is 4.3 #Pseudohypocalcemia: calcium today is 7.5, which corrected for calcium is WNL. #Chronic anemia: Hb is 8.6, which is around her baseline. WIll monitor #Hypertension: on cardizem. IV hydralazine prn #CML: on imatinib. To follow up with her oncologist on outpatient basis #Hypomagnesemia: resolved. Magnesium is 2.3 today #CHronic hypoxic respiratory failure due to COPD * on 4L of oxygen which is her baseline * breathing treatment with bronchodilators * titrate oxygen to maintain sats >90% * DVT prophylaxis: lovenox Charges/Coding Visit Charges Inpatient E&M: 91634 Subs Hosp L2
--- NOTE | 2022-02-06 16:22 | CHAPLAIN ---
Type of Pastoral Visit ___ Initial Visit ___ Follow-up Visit ___ On-call Visit ___ General Patient Visit ___ Spiritual Assessment ___ Family Conference ___ Bereavement ___ Rapid Response ___ Code Blue ___ Other (describe below) Pastoral Care Referral From ___ Patient ___ Family ___ Nurse ___ Physician ___ [place] ___ Dermatology Technician ___ Other (describe below) Sacrament/Intervention ___ Active listening ___ Anointing ___ Religious ___ Bereavement ___ Communion ___ Jessica exploration ___ ___ Life review ___ Prayer ___ Reconciliation ___ Sacrament of Sick ___ Supportive presence ___ Wedding ___ Other (describe below) Pastoral Comments two attempts to visit with the patient are unsuccessful as she is busy
[2022-02-06] MEDS: 0.9% Saline Lock 10 ML Syringe IV (21:57)
[2022-02-07] VITALS (9 sets, daily range): BP systolic 116–128; BP diastolic 76–82; PULSE 103–113; RESP 16–20; TEMP 36.8–37.5; O2SAT 91–96
[2022-02-07] MEDS: Albuterol 2.5 MG/3 ML VIAL.NEB. INHALATION (03:40)
[2022-02-07] MEDS: busPIRone 5 MG Tablet 20 MG PO ×2 (05:17→13:09)
[2022-02-07 06:14] LABS: Absolute Lymphocyte Count 1.36 X10^3/uL (0.83-4.51); Absolute Neutrophil Count 5.3 X10^3/uL (2.0-7.7); Basophil# 0.02 X10^3/uL; Basophil% 0.3 % (0-1); Eosinophil# 0.15 X10^3/uL; Hematocrit 27.1 % (37-47); Hemoglobin 8.5 g/dL (12.0-15.0); Lymphocyte # 1.36 X10^3/ul (0.83-4.51); Mean Corp Hgb Conc 31.4 g/dL (32-36); Mean Corpuscular Hgb 31.4 pg (27.0-32.0); Mean Platelet Vol. 9.6 fl (6.2-12.0); Monocyte% 9.3 % (0-10); NRBC Flagged by Analyzer 0 % (0-5); Neutrophil % 70.1 % (47-70); Platelet Count 150 K/mm3 (150-450); RBC Distribution Width SD 54.9 fl (35.1-43.9); Red Blood Count 2.71 M/mm3 (4.2-5.4); White Blood Count 7.6 K/mm3 (4.4-11.0)
[2022-02-07 06:37] LABS: Anion Gap 4 (5-15); BUN 5 mg/dL (7-18); BUN/Creat Ratio 6.3 RATIO (10-20); Calcium,Total 7.6 mg/dL (8.5-10.1); Chloride 111 mmol/L (98-107); Creatinine, Serum 0.79 mg/dL (0.55-1.02); EST Glomerular Filtration Rate 79 mL/min (>60); Est Glom Filt Rate - Afr Amer 95 mL/min (>60); Estimated Creatinine Clearance 57.86 ml/min; Glucose 90 mg/dL (74-106); Potassium 3.9 mmol/L (3.5-5.1); Sodium Level 141 mmol/L (136-145)
[2022-02-07] MEDS: Ipratropium/Albuterol Sulfate 3 ML AMPUL.NEB INHALATION ×2 (07:11→13:35)
[2022-02-07] MEDS: Azelastine HCl NASAL.SRY 1 SPRAY NASAL (08:24)
[2022-02-07] MEDS: Sertraline 50 MG Tablet 75 MG PO (08:26)
[2022-02-07] MEDS: Potassium Chloride Oral Tablet 20 MEQ PO (08:26)
[2022-02-07] MEDS: dilTIAZem CD 240 MG Capsule PO (08:26)
[2022-02-07] MEDS: Loratadine 10 MG Tablet PO (08:26)
[2022-02-07] MEDS: predniSONE 10 MG Tablet PO (08:26)
[2022-02-07] MEDS: 0.9% Saline Lock 10 ML Syringe IV (08:30)
[2022-02-07] MEDS: ALPRAZolam 0.5 MG Tablet PO (08:30)
[2022-02-07] MEDS: oxyCODONE 5 MG Tablet PO (08:30)
--- NOTE | 2022-02-07 11:51 | DS.PCM_ITS ---
Providers Date of Admission: 02/05/22 Primary Care Physician: YARELIS Dumont Reason For Visit: ACUTE GASTRITIS Diagnosis Discharge Diagnosis (1) Nausea & vomiting: Status: Acute Code(s): R11.2 - Nausea with vomiting, unspecified Qualifiers: Vomiting type: unspecified Qualified Code(s): R11.2 - Nausea with vomiting, unspecified Medications at Discharge Home Medications albuterol sulfate 2.5 mg INHALATION Q4H PRN PRN 10/18/18 diltiazem HCl 240 mg PO DAILY 10/18/18 alendronate 70 mg PO SA 07/06/20 alprazolam 0.5 mg tablet 0.5 - 1 mg PO Q6H PRN tab 11/03/20 buspirone 10 mg tablet 20 mg PO TID tab 11/03/20 furosemide 40 mg tablet 40 mg PO DAILY PRN 11/03/20 oxycodone 10 mg tablet 5 mg PO Q6H 11/03/20 sertraline 100 mg tablet 75 mg PO DAILY 11/03/20 azelastine-fluticasone 137 mcg-50 mcg/spray nasal spray 1 spray INTRANASAL BID 01/04/21 cyclobenzaprine 5 mg tablet 5 mg PO 4X/DAY PRN PRN 01/04/21 albuterol sulfate 90 mcg/actuation aerosol inhaler 2 puff INHALATION Q4H PRN PRN #18 g 06/16/21 azelastine 137 mcg (0.1 %) nasal spray aerosol 1 spray INTRANASAL BID #30 ml 06/16/21 fluticasone propionate 50 mcg/actuation nasal spray,suspension 2 spray INTRANASAL DAILY #50 mcg 06/16/21 prednisone 10 mg tablet 10 mg PO QDAY #90 tab 01/02/22 potassium chloride 20 meq PO BID 01/05/22 Spiriva Respimat 1 puff INHALATION QHS 02/05/22 budesonide-formoterol [Symbicort] 2 puff INHALATION BID 02/05/22 fexofenadine 180 mg PO DAILY 02/05/22 imatinib 400 mg PO DAILY 02/05/22 omeprazole 40 mg PO DAILY 02/05/22 prochlorperazine maleate 10 mg PO DAILY 02/05/22 prednisone 40 mg PO DAILY #10 tab 02/07/22 Hospital Course Operations None Procedures None Summary of Care Provided Minutes Spent on Discharge: 35 Hospital Course: Patient is a 61-year-old female with a past medical history as outlined who was admitted through the ED on 02/05/2022 with a complaint of progressively worsening nausea and vomiting which have been going on for about 2 weeks with associated abdominal pain. She denied any diarrhea and she denied any fever. She did admit to anorexia as well. On admission she was found to be hypokalemic. Urinalysis was negative for any evidence of UTI. She was admitted and managed for nausea and vomiting she was hydrated with IV fluids and started on IV Compazine. Nausea and vomiting gradually improved and she felt better. She was able to tolerate a diet. She was discharged on 02/07/2022. She is to follow-up with her primary care doctor within 1 to 2 weeks. Patient was seen and examined. She did complain of some mild wheezing today after his COPD might be flaring up. She had no other complaints and review of systems otherwise negative. Labs and vitals reviewed. Home medication reviewed and reconciled. Physical Exam Const alert, oriented x3 and no apparent distress General Appearance: cooperative, comfortable and well kempt Exam Limitations: no limitations HEENT normocephalic, head/scalp atraumatic, hearing grossly normal bilaterally and moist oral mucous membranes Eyes PERRL, EOMs intact bilaterally and conjunctivae normal Neck no lymphadenopathy, supple and no JVD Resp Resp Narrative: mildly diminished breath sounds bibasally, no wheezes or crackles. On 4L of oxygen by nasal canula, which is her baseline Cardio regular rate, regular rhythm, S1 normal heart sound, S2 normal heart sound and n o murmurs GI normal to inspection, nondistended, normoactive bowel sounds, soft to palpation, non-tender and non-distended Extremity normal to inspection, full ROM and no clubbing, cyanosis or edema Skin no rashes or lesions noted Neuro oriented x3, CN's II-XII intact bilaterally and moves all extremities Sensorium / Orientation: awake and alert Psych affect normal Weight / BMI Weight Weight: 210 lb 15.718 oz Body Mass Index (BMI) 39.5 ABG / Lab / Microbiology Data Result Diagrams: 02/07/22 05:48 02/07/22 05:48 Laboratory: Laboratory Results - last 24 hr 02/07/22 05:48: WBC 7.6, RBC 2.71 L, Hgb 8.5 L, Hct 27.1 L, MCV 100.0 H, MCH 31.4, MCHC 31.4 L, RDW Std Deviation 54.9 H, RDW Coeff of Noe 15.0 H, Plt Count 150, MPV 9.6, Immature Gran % (Auto) 0.300, Neut % (Auto) 70.1 H, Lymph % (Auto) 18.0 L, Hartley % (Auto) 9.3, Eos % (Auto) 2.0, Baso % (Auto) 0.3, Absolute Neuts (auto) 5.3, Absolute Lymphs (auto) 1.36, Nucleated RBC % 0 02/07/22 05:48: Sodium 141, Potassium 3.9, Chloride 111 H, Carbon Dioxide 26.0, Anion Gap 4 L, BUN 5 L, Creatinine 0.79, Estim Creat Clear Calc 57.86, Est GFR (MDRD) Af Amer 95, Est GFR (MDRD) Non-Af 79, BUN/Creatinine Ratio 6.3 L, Glucose 90, Calcium 7.6 L D/C Instructions Discharge Diet: Low fat / Low cholesterol Call your doctor if you observe: Fever of 101 or Higher, Shortness of breath, Dizziness, Swelling in the ankles, Chest pain and Increased palpitations (irregular heartbeat) Meaningful Use Info Meaningful Use Diagnoses (Choose all that apply): None applicable Discharge Plan Admission Admit Date/Time: 02/05/22 05:32 Primary Reason for Your Visit: gastroenteritis Attending Provider: Mirian Lim Primary Care Provider: Jennifer Coelho NP Instructions Patient Instructions: ED Gastroenteritis, Viral (Adult) Discharge Orders/Prescriptions Prescriptions: New prednisone 20 mg tablet 40 mg PO DAILY Qty: 10 RF: 0 Continued buspirone 10 mg tablet 20 mg PO TID RF: 0 azelastine-fluticasone [Dymista] 137-50 mcg/spray spray,non-aerosol 1 spray INTRANASAL BID RF: 0 cyclobenzaprine 5 mg tablet 5 mg PO 4X/DAY PRN PRN (Reason: Muscle Spasm) RF: 0 furosemide 40 mg tablet 40 mg PO DAILY PRN (Reason: Swelling) RF: 0 sertraline 100 mg tablet 75 mg PO DAILY RF: 0 oxycodone 10 mg tablet 5 mg PO Q6H RF: 0 albuterol sulfate 2.5 MG/3 ML solution for nebulization 2.5 mg INHALATION Q4H PRN PRN (Reason: Sob &/Or Wheezing) RF: 0 diltiazem HCl 240 MG capsule 240 mg PO DAILY RF: 0 alprazolam 0.5 mg tablet 0.5 - 1 mg PO Q6H PRN (Reason: Anxiety) RF: 0 alendronate 70 MG tablet 70 mg PO SA RF: 0 potassium chloride 20 mEq Tablet Extended Release 20 meq PO BID RF: 0 fexofenadine 180 mg Tablet 180 mg PO DAILY RF: 0 prochlorperazine maleate 10 mg Tablet 10 mg PO DAILY RF: 0 omeprazole 40 mg Capsule,Delayed Release(Dr/Ec) 40 mg PO DAILY RF: 0 Spiriva Respimat 2.5 mcg/actuation Mist 1 puff INHALATION QHS RF: 0 imatinib 400 mg tablet 400 mg PO DAILY RF: 0 budesonide-formoterol [Symbicort] 160-4.5 mcg/actuation HFA aerosol inhaler 2 puff INHALATION BID RF: 0 albuterol sulfate 90 mcg/actuation HFA aerosol inhaler 2 puff INHALATION Q4H PRN PRN (Reason: Sob &/Or Wheezing) Qty: 18 RF: 6 azelastine 137 mcg (0.1 %) aerosol,spray 1 spray INTRANASAL BID Qty: 30 RF: 5 fluticasone propionate 50 mcg/actuation spray,suspension 2 spray INTRANASAL DAILY Qty: 50 RF: 3 prednisone 10 mg tablet 10 mg PO QDAY Qty: 90 RF: 3 Referrals / Follow Up: Jennifer Coelho NP, [employer] SERVICE UNIT OPERATOR-C [Primary Care Provider] - Within 2 Weeks Disposition Disposition (needs filled in before D/C Order can be placed): Home, Self Care Charges/Coding Visit Charges Inpatient E&M: 31669 Disch Hosp
--- NOTE | 2022-02-07 12:35 | CASEMGMT ---
Social Work Note SW received message from Ester, pt's Carestar VERNON through [facility] requesting call back regarding pt. Ester also requesting discharge paperwork be faxed to her. . . SW placed a call to Ester and left message updating her pt discharged home today. REGINALD faxed discharge paperwork to Ester. Plan: Home Irina Lyles TRAVELING CONSTRUCTION SUPERINTENDENT, MENTAL HEALTH ADVANCED PRACTICE NURSE
--- NOTE | 2022-02-07 13:06 | CHAPLAIN ---
Type of Pastoral Visit _x__ Initial Visit ___ Follow-up Visit ___ On-call Visit ___ General Patient Visit ___ Spiritual Assessment ___ Family Conference ___ Bereavement ___ Rapid Response ___ Code Blue ___ Other (describe below) Pastoral Care Referral From _x__ Patient ___ Family ___ Nurse ___ Physician ___ National Insurance Officer ___ Duralumin Mechanic ___ Other (describe below) Sacrament/Intervention _x__ Active listening ___ Anointing ___ Mu-Ism ___ Bereavement ___ Communion ___ Jessica exploration ___ ___ Life review _x__ Prayer ___ Reconciliation ___ Sacrament of Sick _x__ Supportive presence ___ Wedding ___ Other (describe below) Pastoral Comments patient is resting and states that she would like prayer support and includes a friend that is having surgery; patient said otherwise she just wants to rest; affirm patient in her kindness for others and gave offer of future support as desired;
[2022-02-09 14:35] LABS: H. PYLORI STOOL AG Negative (Negative)
== END 2022-02-07 14:45 | disposition home or self-care (01) ==
LOC: ED 05:07 → MS3 05:44
PROVIDERS: Internal Medicine; Admitting Provider Hospitalist; Emergency Provider Student in an Organized Health Care Education/Training Program; PCP Nurse Practitioner Family; Visit Provider Student in an Organized Health Care Education/Training Program
DX: R11.2 Nausea with vomiting, unspecified (principal); C93.10 Chronic myelomonocytic leukemia not having achieved remission; C91.10 Chronic lymphocytic leukemia of B-cell type not having achieved remission; J44.9 Chronic obstructive pulmonary disease, unspecified; K51.90 Ulcerative colitis, unspecified, without complications; J96.11 Chronic respiratory failure with hypoxia; E83.42 Hypomagnesemia; K29.70 Gastritis, unspecified, without bleeding; M79.7 Fibromyalgia; E87.6 Hypokalemia; E66.9 Obesity, unspecified; Z68.38 Body mass index [BMI] 38.0-38.9, adult; F32.A Depression, unspecified; Z79.52 Long term (current) use of systemic steroids; Z87.891 Personal history of nicotine dependence; Z79.899 Other long term (current) drug therapy
CPT/HCPCS: 36415; 80048; 80053; 81001; 82962; 83735; 85025; 94640; 96365; 96366; 96367; 96368; 96372; 96375; 97110; 97161; 97165; 97530; 97535; 97802; 99218; 99285; J7030; P9612; A4216; G0378

== ENCOUNTER 2022-02-17 11:15 | Inpatient (IN) | payer MEDICAID, SELFPAY ==
[2022-02-17] VITALS (10 sets, daily range): BP systolic 98–130; BP diastolic 68–91; PULSE 114–123; RESP 16–24; TEMP 36.9–37.8; O2SAT 92–100; BMI 29.4; BMI 29.8
--- NOTE | 2022-02-17 11:30 | EKG12_ITS ---
Test Reason : WEAKNESS Blood Pressure : / mmHG Vent. Rate : 111 BPM Atrial Rate : 111 BPM P-R Int : 150 ms QRS Dur : 082 ms QT Int : 346 ms P-R-T Axes : 035 108 063 degrees QTc Int : 470 ms Sinus tachycardia T wave abnormality, consider anterior ischemia Abnormal ECG Confirmed by IVETT MURO, EMILIA ([id number]), magazine editor ANGE TOUSSAINT ([id number]) on 02/20/2022 1:32:31 PM Referred By: LAURA Confirmed By:EMILIA ROOT MD
--- NOTE | 2022-02-17 11:30 | RAD_ITS ---
STUDY: X-RAY - LEFT FOOT CLINICAL: Left foot/ankle pain, redness and swelling, left foot injury 2 days ago. TECHNIQUE: 3 view(s) of the foot. COMPARISON: None. FINDINGS: Normal talus, calcaneus, and tarsal bones. Normal visualized subtalar, talonavicular, calcaneocuboid, tarsal and tarsometatarsal articulations. Normal metatarsi. Normal metatarsophalangeal joint of the great toe. Normal tibial and fibular sesamoid bones. Normal interphalangeal joint of the great toe. Normal phalanges of the great toe. Normal second through fifth metatarsophalangeal joints. Normal interphalangeal joints and phalanges of the lesser toes. There is soft tissue swelling. RAD/Foot min 3 Views IMPRESSION: Soft tissue swelling. No demonstrated fracture. Electronically Signed: Tacho Matt MD at 12:50 EDT ,
--- NOTE | 2022-02-17 11:33 | EDS_ITS ---
HPI History of Present Illness Chief Complaint: Lower Extremity Injury Detail of Chief Complaint: Fever, nausea and vomiting, left foot injury Informant: patient Narrative Narrative: Patient presents via EMS with multiple complaints. She reports longstanding nausea and vomiting that is been worse over the past 3 days. She is currently on oral chemotherapy and states she is not been able to keep her pills down the last 3 days. She has been having intermittent fevers up to 101 at home. She reports queasiness in her abdomen but no real focal abdominal pain. She fell 2 days ago injuring her left foot and is concerned she may have broken it. Last temperature was at 4 AM this morning. She was unable to keep Tylenol down. She denies cough or congestion. [facility] Medical History Anxiety Asthma Cancer Carpal tunnel syndrome Chronic hypoxemic respiratory failure CML (chronic myelocytic leukemia) COPD (chronic obstructive pulmonary disease) COVID-19 Depression Fibromyalgia DREW (generalized anxiety disorder) Nicotine abuse Obesity (BMI 30.0-34.9) On home oxygen therapy Osteoporosis Poor compliance with medication Stage 3 severe COPD by GOLD classification Tachycardia Ulcerative colitis Home Medications albuterol sulfate 2.5 mg INHALATION Q4H PRN PRN 10/18/18 [History Last Taken 08/12/20] diltiazem HCl 240 mg PO DAILY 10/18/18 [History Last Taken 08/12/20] alendronate 70 mg PO SA 07/06/20 [History Last Taken 07/31/20] alprazolam 0.5 mg tablet 0.5 - 1 mg PO Q6H PRN tab 11/03/20 [History Last Taken Unknown] buspirone 10 mg tablet 20 mg PO TID tab 11/03/20 [History Last Taken Unknown] furosemide 40 mg tablet 40 mg PO DAILY PRN 11/03/20 [History Last Taken Unknown] oxycodone 10 mg tablet 5 mg PO Q6H 11/03/20 [History Last Taken Unknown] sertraline 100 mg tablet 75 mg PO DAILY 11/03/20 [History Last Taken Unknown] azelastine-fluticasone 137 mcg-50 mcg/spray nasal spray 1 spray INTRANASAL BID 01/04/21 [History Last Taken Unknown] cyclobenzaprine 5 mg tablet 5 mg PO 4X/DAY PRN PRN 01/04/21 [History Last Taken Unknown] albuterol sulfate 90 mcg/actuation aerosol inhaler 2 puff INHALATION Q4H PRN PRN #18 g 06/16/21 [Rx Last Taken Unknown] azelastine 137 mcg (0.1 %) nasal spray aerosol 1 spray INTRANASAL BID #30 ml 06/16/21 [Rx Last Taken Unknown] fluticasone propionate 50 mcg/actuation nasal spray,suspension 2 spray INTRANASAL DAILY #50 mcg 06/16/21 [Rx Last Taken Unknown] prednisone 10 mg tablet 10 mg PO QDAY #90 tab 01/02/22 [Rx Last Taken Unknown] potassium chloride 20 meq PO BID 01/05/22 [History Last Taken Unknown] Spiriva Respimat 1 puff INHALATION QHS 02/05/22 [History Last Taken Unknown] budesonide-formoterol [Symbicort] 2 puff INHALATION BID 02/05/22 [History Last Taken Unknown] fexofenadine 180 mg PO DAILY 02/05/22 [History Last Taken Unknown] imatinib 400 mg PO DAILY 02/05/22 [History Last Taken Unknown] omeprazole 40 mg PO DAILY 02/05/22 [History Last Taken Unknown] prochlorperazine maleate 10 mg PO DAILY 02/05/22 [History Last Taken Unknown] prednisone 40 mg PO DAILY #10 tab 02/07/22 [Rx Last Taken Unknown] Allergy/AdvReac Type Severity Reaction Status Date / Time Penicillins Allergy Severe Hives Verified 02/17/22 11:25 Sulfa (Sulfonamide Allergy Intermediate Hives Verified 02/17/22 11:25 Antibiotics) azithromycin AdvReac Severe Diarrhea Verified 02/17/22 11:25 codeine AdvReac Severe Vomiting Verified 02/17/22 11:25 ondansetron [From Zofran] AdvReac Severe Nausea Verified 02/17/22 11:25 ondansetron HCl AdvReac Severe Nausea Verified 02/17/22 11:25 [From Zofran (as hydrochloride)] pregabalin [From Lyrica] AdvReac Severe i can't Verified 02/17/22 11:25 see propoxyphene napsylate AdvReac Severe Vomiting Verified 02/17/22 11:25 [From Darvocet-N 100] Family History Mother Ovarian cancer Brother Heart disease Grandmother Heart disease Grandfather Heart disease Surgical History History of cardiac cath History of cranial surgery History of hemorrhoidectomy History of hysterectomy Social History Smoking Status: Former smoker Tobacco: How many years used: 40 second hand exposure: No alcohol intake: never substance use type: does not use caffeine: Yes Type: carbonated beverages and tea leila/pentecostalism: None seatbelt use: always do you feel safe at home: Yes ROS ROS ED Constitutional Constitutional ED: Reports fever(s); Denies chills Eyes Eyes: Denies change in vision ENT ENT ED: Denies sore throat Cardiovascular Cardiovascular: Denies chest pain Respiratory/Chest Respiratory/Chest: Denies cough or dyspnea Gastrointestinal Gastrointestinal: Reports abdominal pain, diarrhea, nausea and vomiting Genitourinary Genitourinary ED: Denies dysuria Musculoskeletal Musculoskeletal: Denies back pain or neck pain Integumentary Denies rash Neurologic Neurologic: Denies headache(s) or weakness Allergic/Immunologic Allergic/Immunologic ED: Denies urticaria EXAM Physical Exam Const Vital Signs: 02/17/22 11:21 02/17/22 11:55 02/17/22 12:17 Temperature 99.0 F Temperature Source Temporal Pulse Rate 114 H 117 H Respiratory Rate 18 23 H Blood Pressure 116/80 121/80 H Blood Pressure Mean 92 93 Pulse Ox 98 99 Oxygen Delivery Method Nasal Cannula Nasal Cannula Nasal Cannula Oxygen Flow Rate (L/min) 4 4 4 02/17/22 12:26 02/17/22 13:17 Temperature 100.1 F H Temperature Source Oral Pulse Rate 120 H Respiratory Rate 23 H Blood Pressure 122/85 H Blood Pressure Mean 97 Pulse Ox 98 Oxygen Delivery Method Nasal Cannula Oxygen Flow Rate (L/min) 4 Positive well nourished and well developed General Appearance ED: well developed HEENT Reports moist mucous membranes Eyes PERRL and EOMs intact bilaterally Neck supple Chest Wall inspection of chest normal and palpation of chest normal Resp normal respiratory effort and clear to auscultation bilaterally Cardio regular rate and regular rhythm GI non-tender Auscultation: hypoactive bowel sounds Palpation: soft Extremity Extremity Narrative: Edema noted to the left foot with bruising noted to the second toe. Good cap refill and sensation distally. Mild ecchymosis noted over the left owens but no bony tenderness to this area. Neuro oriented x3 Sensorium / Orientation: alert Psych mental status grossly normal MDM MDM MDM Narrative Medical decision making narrative: Sepsis orders obtained. Left foot x-rays also obtained. Patient initially given IM Phenergan for nausea. Lab Data Attestation: I reviewed the patient's lab results. Labs: Laboratory Results - last 24 hr 02/17/22 02/17/22 02/17/22 11:50 11:50 11:50 WBC 13.3 H RBC 3.25 L Hgb 10.2 L Hct 31.4 L MCV 96.6 MCH 31.4 MCHC 32.5 RDW Std Deviation 50.6 H RDW Coeff of Noe 14.2 Plt Count 253 MPV 9.5 Immature Gran % (Auto) 0.900 Neut % (Auto) 76.0 H Lymph % (Auto) 12.9 L Jenkins % (Auto) 9.5 Eos % (Auto) 0.5 Baso % (Auto) 0.2 Absolute Neuts (auto) 10.1 H Absolute Lymphs (auto) 1.72 Nucleated RBC % 0 PT 13.5 INR 1.1 APTT 29.7 Sodium 137 Potassium 3.3 L Chloride 99 Carbon Dioxide 32.0 Anion Gap 6 BUN 8 Creatinine 0.83 Estim Creat Clear Calc 57.72 Est GFR (MDRD) Af Amer 91 Est GFR (MDRD) Non-Af 75 BUN/Creatinine Ratio 9.7 L Glucose 116 H Lactic Acid Calcium 8.6 Total Bilirubin 0.90 AST 13 L ALT 14 Alkaline Phosphatase 62 Total Protein 5.6 L Albumin 2.6 L Globulin 3.0 Albumin/Globulin Ratio 0.9 Urine Color Urine Clarity Urine pH Ur Specific [place] Urine Protein Urine Glucose (UA) Urine Ketones Urine Occult Blood Urine Nitrite Urine Bilirubin Urine Urobilinogen Ur Leukocyte Esterase Urine RBC Urine WBC Ur Squamous Epith Cells Urine Bacteria Urine Mucus 02/17/22 02/17/22 11:50 12:49 WBC RBC Hgb Hct MCV MCH MCHC RDW Std Deviation RDW Coeff of Noe Plt Count MPV Immature Gran % (Auto) Neut % (Auto) Lymph % (Auto) Jenkins % (Auto) Eos % (Auto) Baso % (Auto) Absolute Neuts (auto) Absolute Lymphs (auto) Nucleated RBC % PT INR APTT Sodium Potassium Chloride Carbon Dioxide Anion Gap BUN Creatinine Estim Creat Clear Calc Est GFR (MDRD) Af Amer Est GFR (MDRD) Non-Af BUN/Creatinine Ratio Glucose Lactic Acid 1.2 Calcium Total Bilirubin AST ALT Alkaline Phosphatase Total Protein Albumin Globulin Albumin/Globulin Ratio Urine Color Yellow Urine Clarity Cloudy Urine pH 7.0 Ur Specific [place] 1.010 Urine Protein 30 H Urine Glucose (UA) Normal Urine Ketones 5 H Urine Occult Blood 150 H Urine Nitrite Negative Urine Bilirubin Negative Urine Urobilinogen 4 H Ur Leukocyte Esterase 100 H Urine RBC 10-25 SEEN Urine WBC 10-25 SEEN Ur Squamous Epith Cells 5-10 SEEN Urine Bacteria 3+ Urine Mucus 0 SEEN Radiography Diagnostic Testing: Clinical Impression(s) from Imaging Studies Foot X-Ray 02/17/22 11:30 IMPRESSION: Soft tissue swelling. No demonstrated fracture. Electronically Signed: Tacho Matt MD at 12:50 EDT , Chest X-Ray 02/17/22 11:57 IMPRESSION: Blunting of the left costophrenic angle which may represent pleural effusion or scar. There is no focal consolidation. Electronically Signed: Luis Garrison MD at 12:26 EDT , EKG Initial EKG: Attestation: I personally reviewed and interpreted this EKG as follows: Interpretation: Sinus Tachycardia (Sinus tach at 111. No acute ST change.) Treatment and Re-Evaluation Narrative: Patient's white count elevated at 13.3 with a slight left shift. Coags normal. Chemistry studies significant only for slightly low potassium at 3.3. Lactic acid normal at 1.2. Urinalysis shows 3+ bacteria with 10-25 white cells. 5-10 epithelial cells are noted. Chest x-ray reveals chronic changes per my interpretation. Radiology potation also reviewed. Left foot x-rays reveal no evidence of acute fracture and radiology interpreted and agrees. Patient is given Reglan for continued nausea along with IV potassium replacement. She is given Tylenol as her temperature did increase to 100.1. At this time she will be given a dose of IV Cipro given her antibiotic allergies and discussed with hospitalist for admission. Discharge Plan Triage Chief Complaint: Lower Extremity Injury ED Provider: Hallie Hooks Dx/Rx/DC Orders Clinical Impression: Cystitis, Hypokalemia, Vomiting, Contusion of foot Prescriptions: No Action buspirone 10 mg tablet 20 mg PO TID RF: 0 azelastine-fluticasone [Dymista] 137-50 mcg/spray spray,non-aerosol 1 spray INTRANASAL BID RF: 0 cyclobenzaprine 5 mg tablet 5 mg PO 4X/DAY PRN PRN (Reason: Muscle Spasm) RF: 0 furosemide 40 mg tablet 40 mg PO DAILY PRN (Reason: Swelling) RF: 0 sertraline 100 mg tablet 75 mg PO DAILY RF: 0 oxycodone 10 mg tablet 5 mg PO Q6H RF: 0 albuterol sulfate 2.5 MG/3 ML solution for nebulization 2.5 mg INHALATION Q4H PRN PRN (Reason: Sob &/Or Wheezing) RF: 0 diltiazem HCl 240 MG capsule 240 mg PO DAILY RF: 0 alprazolam 0.5 mg tablet 0.5 - 1 mg PO Q6H PRN (Reason: Anxiety) RF: 0 alendronate 70 MG tablet 70 mg PO SA RF: 0 potassium chloride 20 mEq Tablet Extended Release 20 meq PO BID RF: 0 fexofenadine 180 mg Tablet 180 mg PO DAILY RF: 0 prochlorperazine maleate 10 mg Tablet 10 mg PO DAILY RF: 0 omeprazole 40 mg Capsule,Delayed Release(Dr/Ec) 40 mg PO DAILY RF: 0 Spiriva Respimat 2.5 mcg/actuation Mist 1 puff INHALATION QHS RF: 0 imatinib 400 mg tablet 400 mg PO DAILY RF: 0 budesonide-formoterol [Symbicort] 160-4.5 mcg/actuation HFA aerosol inhaler 2 puff INHALATION BID RF: 0 prednisone 20 mg tablet 40 mg PO DAILY Qty: 10 RF: 0 albuterol sulfate 90 mcg/actuation HFA aerosol inhaler 2 puff INHALATION Q4H PRN PRN (Reason: Sob &/Or Wheezing) Qty: 18 RF: 6 azelastine 137 mcg (0.1 %) aerosol,spray 1 spray INTRANASAL BID Qty: 30 RF: 5 fluticasone propionate 50 mcg/actuation spray,suspension 2 spray INTRANASAL DAILY Qty: 50 RF: 3 prednisone 10 mg tablet 10 mg PO QDAY Qty: 90 RF: 3 Primary Care Provider: Jennifer Coelho NP Referrals: Jennifer Coelho NP, MANAGER OF HUMAN RESOURCES-C [Primary Care Provider] - Disposition Disposition: Acute Care Hospital [facility]
--- NOTE | 2022-02-17 11:57 | RAD_ITS ---
EXAM: XR CHEST, 1 VIEW CLINICAL INDICATION: fever TECHNIQUE: Frontal view of the chest. This report was created using [employer] report generation technology. COMPARISON: 07/20/2020 FINDINGS: LUNGS AND PLEURAL SPACES: There is blunting of the left costophrenic angle. No pneumothorax. No effusion. HEART: Unremarkable. Cardiac silhouette not enlarged. MEDIASTINUM: Central airways and mediastinal contour are unremarkable. BONES/JOINTS: Unremarkable. SOFT TISSUES: Unremarkable. RAD/Chest 1 View (Portable) IMPRESSION: Blunting of the left costophrenic angle which may represent pleural effusion or scar. There is no focal consolidation. Electronically Signed: Luis Garrison MD at 12:26 EDT ,
[2022-02-17 12:08] LABS: International Normalized Ratio 1.1; Prothrombin Time (Protime)PT. 13.5 SECONDS (11.7-14.9)
[2022-02-17 12:09] LABS: Partial Thromboplast Time 29.7 Seconds (24.1-36.2)
[2022-02-17] MEDS: proMETHazine 25 MG/ML Syringe 6.25 MG IM (12:12)
[2022-02-17] MEDS: 0.9% Normal Saline 1,000 ML 150 ML IV (12:13)
[2022-02-17 12:16] LABS: ALB/GLOB Ratio 0.9 RATIO (0.9-2.4); AST(SGOT) 13 U/L (15-37); Alanine Aminotransfer ALT/SGPT 14 U/L (13-56); Albumin, Serum 2.6 g/dL (3.2-5.0); Alkaline Phosphatase 62 U/L (45-117); Anion Gap 6 (5-15); BUN 8 mg/dL (7-18); BUN/Creat Ratio 9.7 RATIO (10-20); Calcium,Total 8.6 mg/dL (8.5-10.1); Chloride 99 mmol/L (98-107); Creatinine, Serum 0.83 mg/dL (0.55-1.02); EST Glomerular Filtration Rate 75 mL/min (>60); Est Glom Filt Rate - Afr Amer 91 mL/min (>60); Estimated Creatinine Clearance 57.72 ml/min; Glucose 116 mg/dL (74-106); Potassium 3.3 mmol/L (3.5-5.1); Protein, Total 5.6 g/dL (6.4-8.2); Sodium Level 137 mmol/L (136-145)
[2022-02-17 12:31] LABS: Absolute Lymphocyte Count 1.72 X10^3/uL (0.83-4.51); Absolute Neutrophil Count 10.1 X10^3/uL (2.0-7.7); Basophil# 0.03 X10^3/uL; Basophil% 0.2 % (0-1); Eosinophil# 0.07 X10^3/uL; Eosinophils% 0.5 % (0-5); Hematocrit 31.4 % (37-47); Hemoglobin 10.2 g/dL (12.0-15.0); Lymphocyte # 1.72 X10^3/ul (0.83-4.51); Lymphocyte % 12.9 % (19-41); Mean Corp Hgb Conc 32.5 g/dL (32-36); Mean Corpuscular Hgb 31.4 pg (27.0-32.0); Mean Corpuscular Volume 96.6 fL (81-99); Mean Platelet Vol. 9.5 fl (6.2-12.0); Monocyte# 1.26 X10^3/uL; Monocyte% 9.5 % (0-10); NRBC Flagged by Analyzer 0 % (0-5); Neutrophil # 10.13 X10^3/uL (2.7-7.7); Platelet Count 253 K/mm3 (150-450); RBC Distribution Width CV 14.2 % (11.6-14.6); RBC Distribution Width SD 50.6 fl (35.1-43.9); Red Blood Count 3.25 M/mm3 (4.2-5.4); White Blood Count 13.3 K/mm3 (4.4-11.0)
[2022-02-17 12:42] LABS: Lactic Acid 1.2 mmol/L (0.4-1.9)
[2022-02-17 12:53] LABS: Mucous, Urine 0 SEEN /hpf (<or=2+)
[2022-02-17 13:11] LABS: Color, Urine Yellow (Yellow); Glucose, Dipstick Normal (Normal); Ketone-Dipstick 5 mg/dl (Negative); Leukocyte Esterase-Dipstick 100 /ul (Negative); Nitrite-Dipstick Negative (Negative); Occult Blood-Urine 150 /ul (Negative); Protein-Dipstick 30 mg/dl (Negative); Urine Bilirubin Dipstick Negative (Negative); Urine Clarity Cloudy (Clear); Urine Urobilinogen 4 mg/dl (Normal)
[2022-02-17] MEDS: Metoclopramide 10 MG/2 ML Vial 5 MG IV (13:14)
[2022-02-17] MEDS: Acetaminophen 500 MG Tablet 1000 MG PO (13:15)
[2022-02-17 13:18] LABS: Bacteria 3+ /hpf (None Seen); Red Blood Cells-Urine 10-25 SEEN /hpf (0-5); Squamous Epithelial Cells - UA 5-10 SEEN /hpf (5-10); White Blood Cells 10-25 SEEN /hpf (0-5)
[2022-02-17] MEDS: Potassium Chloride 10mEq/100mL 10 MEQ/100 ML IV.SOLN. 100 MEQ IV BOLUS ×4 (13:32→18:45)
--- NOTE | 2022-02-17 15:15 | PCM.HP.STD ---
HPI - General General Date of Admission: 02/17/22 Date of Service: 02/17/22 Chief Complaint: Nausea and vomiting, chills, fever, left foot pain HPI Narrative CHAU LINDSAY, is a 61 F who presents to the emerged [facility] at [facility] with chief complaint of left foot pain-patient states she fell approximately 2 days ago and her left foot has been bothering her ever since. She further complains that she has been running a temperature at home over the last couple of days, she denies any cough, she does endorse chills. Denies any dysuria or urinary frequency. Patient is on chronic oxygen at home at 3 to 4 L at all times, she has no complaints of any change in her sputum production. Patient told this examiner that the reason why she came to the emergency room today was for an evaluation of her left foot injury. Work-up in the emergency room included x-rays of her left foot which did not show any evidence of fracture, CBC showed elevated white blood cell count at 13.3, hemoglobin was 10.2, potassium was 3.3, and UA showed 10-25 red blood cells and white cells in the urine as well as +3 bacteria. Chest x-ray showed no focal infiltrates. Patient will be admitted for acute cystitis, nausea, and hypokalemia, she was given Cipro IV in the emergency room, she will remain on this. Patient does not appear clinically dehydrated, I will run fluids overnight 800 cc/h, she will need reevaluated tomorrow. I talked with her oncologist who stated that the patient could remain off her Imatinib if she is only in the hospital for a brief period of time. I have elected to hold this medication. [facility] Medical History Anxiety Asthma Cancer Carpal tunnel syndrome Chronic hypoxemic respiratory failure CML (chronic myelocytic leukemia) COPD (chronic obstructive pulmonary disease) COVID-19 Depression Fibromyalgia DREW (generalized anxiety disorder) Nicotine abuse Obesity (BMI 30.0-34.9) On home oxygen therapy Osteoporosis Poor compliance with medication Stage 3 severe COPD by GOLD classification Tachycardia Ulcerative colitis Home Medications albuterol sulfate 2.5 mg INHALATION Q4H PRN PRN 10/18/18 [History Last Taken 02/14/22] diltiazem HCl 240 mg PO DAILY 10/18/18 [History Last Taken 02/15/22] alendronate 70 mg PO SA 07/06/20 [History Last Taken 07/31/20] alprazolam 0.5 mg tablet 0.5 - 1 mg PO Q6H PRN tab 11/03/20 [History Last Taken 02/17/22] buspirone 10 mg tablet 20 mg PO TID tab 11/03/20 [History Last Taken 02/14/22] furosemide 40 mg tablet 40 mg PO DAILY PRN 11/03/20 [History Last Taken Unknown] oxycodone 10 mg tablet 5 mg PO Q6H 11/03/20 [History Last Taken 02/17/22] sertraline 100 mg tablet 75 mg PO DAILY 11/03/20 [History Last Taken Unknown] azelastine-fluticasone 137 mcg-50 mcg/spray nasal spray 1 spray INTRANASAL BID 01/04/21 [History Last Taken Unknown] cyclobenzaprine 5 mg tablet 5 mg PO 4X/DAY PRN PRN 01/04/21 [History Last Taken 02/15/22] albuterol sulfate 90 mcg/actuation aerosol inhaler 2 puff INHALATION Q4H PRN PRN #18 g 06/16/21 [Rx Last Taken 02/14/22] fluticasone propionate 50 mcg/actuation nasal spray,suspension 2 spray INTRANASAL DAILY #50 mcg 06/16/21 [Rx Last Taken 02/15/22] potassium chloride 20 meq PO BID 01/05/22 [History Last Taken 02/14/22] Spiriva Respimat 1 puff INHALATION QHS 02/05/22 [History Last Taken Unknown] budesonide-formoterol [Symbicort] 2 puff INHALATION BID 02/05/22 [History Last Taken Unknown] fexofenadine 180 mg PO DAILY 02/05/22 [History Last Taken Unknown] imatinib 400 mg PO DAILY 02/05/22 [History Last Taken 02/14/22] omeprazole 40 mg PO DAILY 02/05/22 [History Last Taken 02/14/22] prochlorperazine maleate 10 mg PO DAILY 02/05/22 [History Last Taken Unknown] prednisone 40 mg PO DAILY #10 tab 02/07/22 [Rx Last Taken Unknown] azelastine 1 spray INTRANASAL BID 02/17/22 [History Last Taken Unknown] prednisone 10 mg PO QDAY 02/17/22 [History Last Taken 02/13/22] Allergy/AdvReac Type Severity Reaction Status Date / Time Penicillins Allergy Severe Hives Verified 02/17/22 11:25 Sulfa (Sulfonamide Allergy Intermediate Hives Verified 02/17/22 11:25 Antibiotics) azithromycin AdvReac Severe Diarrhea Verified 02/17/22 11:25 codeine AdvReac Severe Vomiting Verified 02/17/22 11:25 ondansetron [From Zofran] AdvReac Severe Nausea Verified 02/17/22 11:25 ondansetron HCl AdvReac Severe Nausea Verified 02/17/22 11:25 [From Zofran (as hydrochloride)] pregabalin [From Lyrica] AdvReac Severe i can't Verified 02/17/22 11:25 see propoxyphene napsylate AdvReac Severe Vomiting Verified 02/17/22 11:25 [From Darvocet-N 100] Family History Mother Ovarian cancer Brother Heart disease Grandmother Heart disease Grandfather Heart disease Surgical History History of cardiac cath History of cranial surgery History of hemorrhoidectomy History of hysterectomy Social History Smoking Status: Former smoker Tobacco: How many years used: 40 second hand exposure: No alcohol intake: never substance use type: does not use caffeine: Yes Type: carbonated beverages and tea leila/restorationism: None seatbelt use: always do you feel safe at home: Yes ROS Constitutional Constitutional: Reports chills and fever(s); Denies anorexia, change in weight, night sweats or weakness Eyes Eyes: Denies blurry vision, change in vision, discharge from eye(s) or eye pain Cardiovascular Cardiovascular: Denies chest pain, claudication, edema, lightheadedness or palpitations Respiratory/Chest Respiratory/Chest: Denies cough, excessive phlegm production, hemoptysis, productive cough, shortness of breath at rest or shortness of breath with exertion Gastrointestinal Gastrointestinal: Denies abdominal pain, constipation, diarrhea, hematemesis, hematochezia, melena, nausea or vomiting Genitourinary Genitourinary: Denies burning urination, dysuria, hematuria, nocturia, urinary frequency, urinary hesitancy, urinary incontinence or urinary urgency Musculoskeletal Musculoskeletal: Reports other Details: Patient is of left foot pain since she had a fall approximately 2 days ago ; Denies back pain, joint pain, joint stiffness, joint swelling, myalgias or neck pain Neurologic Neurologic: Denies abnormal gait, abnormal speech, dizziness, focal weakness, headache(s), loss of vision, numbness, other visual disturbances, paresthesias, syncope or tingling Psychiatric Psychiatric: Denies anxiety, cognitive impairment, depression, irritability, mood swings or suicidal ideation Endocrine Endocrinology: Denies change in body appearance, cold intolerance, excessive sweating, heat intolerance, polydipsia or polyuria Hematologic/Lymphatic Hematologic/Lymphatic: Denies none, anemia, easy bleeding, easy bruising or lymphadenopathy Allergic/Immunologic Allergic/Immunologic: Denies rhinitis, urticaria, eczemia or asthma Vital Signs Vital Signs Vital Signs: 02/17/22 11:21 02/17/22 11:55 02/17/22 12:17 Temperature 99.0 F Temperature Source Temporal Pulse Rate 114 H 117 H Respiratory Rate 18 23 H Blood Pressure 116/80 121/80 H Blood Pressure Mean 92 93 Pulse Ox 98 99 Oxygen Delivery Method Nasal Cannula Nasal Cannula Nasal Cannula Oxygen Flow Rate (L/min) 4 4 4 02/17/22 12:26 02/17/22 13:17 02/17/22 14:37 Temperature 100.1 F H 99.1 F Temperature Source Oral Oral Pulse Rate 120 H 119 H Respiratory Rate 23 H 16 Blood Pressure 122/85 H 120/80 Blood Pressure Mean 97 93 Pulse Ox 98 99 Oxygen Delivery Method Nasal Cannula Nasal Cannula Oxygen Flow Rate (L/min) 4 4 Weight Weight: 73 kg Body Mass Index (BMI) 29.4 Physical Exam Const alert, oriented x3 and no apparent distress Constitutional Narrative: Patient appears older than her stated age General Appearance: cooperative, well kempt and well developed Orientation / Consciousness: awake, oriented to person, oriented to place and oriented to time HEENT normocephalic, head/scalp atraumatic, hearing grossly normal bilaterally and moist oral mucous membranes Eyes PERRL, EOMs intact bilaterally and conjunctivae normal Neck nuchal rigidity, supple, no JVD, thyroid normal and no carotid bruits General: trachea midline Resp normal respiratory effort, no retractions, no use of accessory muscles and clear to auscultation bilaterally Auscultation: Negative for rales, rhonchi or wheezes Cardio regular rate, regular rhythm, S1 normal heart sound, S2 normal heart sound, no murmurs, no rub and no gallops GI normal to inspection, nondistended, normoactive bowel sounds, soft to palpation, non-tender and non-distended Skin no rashes or lesions noted General Skin Exam: no breakdown Neuro oriented x3, CN's II-XII intact bilaterally, no focal motor deficits and no sensory deficits noted Sensorium / Orientation: awake and alert Speech: speech normal Psych affect normal Results Lab / Micro Data Result Diagrams: 02/17/22 11:50 02/17/22 11:50 Labs: Laboratory Results - last 24 hr 02/17/22 11:50: WBC 13.3 H, RBC 3.25 L, Hgb 10.2 L, Hct 31.4 L, MCV 96.6, MCH 31.4, MCHC 32.5, RDW Std Deviation 50.6 H, RDW Coeff of Noe 14.2, Plt Count 253, MPV 9.5, Immature Gran % (Auto) 0.900, Neut % (Auto) 76.0 H, Lymph % (Auto) 12.9 L, [place] % (Auto) 9.5, Eos % (Auto) 0.5, Baso % (Auto) 0.2, Absolute Neuts (auto) 10.1 H, Absolute Lymphs (auto) 1.72, Nucleated RBC % 0 02/17/22 11:50: PT 13.5, INR 1.1, APTT 29.7 02/17/22 11:50: Sodium 137, Potassium 3.3 L, Chloride 99, Carbon Dioxide 32.0, Anion Gap 6, BUN 8, Creatinine 0.83, Estim Creat Clear Calc 57.72, Est GFR (MDRD) Af Amer 91, Est GFR (MDRD) Non-Af 75, BUN/Creatinine Ratio 9.7 L, Glucose 116 H, Calcium 8.6, Total Bilirubin 0.90, AST 13 L, ALT 14, Alkaline Phosphatase 62, Total Protein 5.6 L, Albumin 2.6 L, Globulin 3.0, Albumin/Globulin Ratio 0.9 02/17/22 11:50: Lactic Acid 1.2 02/17/22 12:49: Urine Color Yellow, Urine Clarity Cloudy, Urine pH 7.0, Ur Specific [place] 1.010, Urine Protein 30 H, Urine Glucose (UA) Normal, Urine Ketones 5 H, Urine Occult Blood 150 H, Urine Nitrite Negative, Urine Bilirubin Negative, Urine Urobilinogen 4 H, Ur Leukocyte Esterase 100 H, Urine RBC 10-25 SEEN, Urine WBC 10-25 SEEN, Ur Squamous Epith Cells 5-10 SEEN, Urine Bacteria 3+, Urine Mucus 0 SEEN Micro: Microbiology 02/17/22 11:50 Nasal Secretion SARS-CoV-2 & FLU Antigen (Rapid) - Final Radiology Impression Foot X-Ray 02/17/22 11:30 IMPRESSION: Soft tissue swelling. No demonstrated fracture. Electronically Signed: Tacho Matt MD at 12:50 EDT , Chest X-Ray 02/17/22 11:57 IMPRESSION: Blunting of the left costophrenic angle which may represent pleural effusion or scar. There is no focal consolidation. Electronically Signed: Luis Garrison MD at 12:26 EDT , Assessment & Plan Assessment/Plan (1) Cystitis: PLAN: 1. Acute cystitis-I was asked by the emergency room physician to place the patient into observation status overnight due to the fact that the patient told the emergency room physician she has not been able to keep anything down for 3 days-patient denied any vomiting today to this examiner however. Patient will be placed in observation status on MedSurg 3, she will receive IV Cipro, CBC will be repeated tomorrow morning #2 nausea and vomiting-etiology unclear, patient told the emergency room physician that she has had a history of nausea and vomiting for several years, patient does not appear to this examiner to be dehydrated at this time, I will place her on a full liquid diet and give her IV fluids and she will be reevaluated tomorrow. #3 chronic hypoxic respiratory failure-patient is on 3 L to 4 L of oxygen at all times at home, she will remain on oxygen while she is in the hospital here #4 chronic obstructive pulmonary disease, patient will be placed on DuoNeb inhalers #5 contusion to the left foot-patient will be treated symptomatically for this #6 hypokalemia-patient will be given potassium supplementation, BMP will be repeated tomorrow morning, patient's Lasix will be held at this time #7 chronic myelocytic leukemia-again patient will remain off her medication for this while she is hospitalized here, and will need to be continued when she returns home Charges/Coding Visit Charges OBSV E&M: 76973 Initial observation care L3
[2022-02-17] MEDS: Ciprofloxacin 400 MG/200 ML BAG 200 MG IV ×2 (16:29→21:58)
[2022-02-17] MEDS: 0.9% Normal Saline 1,000 ML 100 ML IV (17:35)
[2022-02-17] MEDS: Ipratropium/Albuterol Sulfate 3 ML AMPUL.NEB INHALATION (19:10)
[2022-02-17] MEDS: Acetaminophen 325 MG Tablet 650 MG PO (19:53)
[2022-02-17] MEDS: busPIRone 5 MG Tablet 20 MG PO (22:01)
[2022-02-18] VITALS (9 sets, daily range): BP systolic 108–135; BP diastolic 64–85; PULSE 93–117; RESP 16–20; TEMP 37.1–37.5; O2SAT 95–98
[2022-02-18] MEDS: 0.9% Normal Saline 1,000 ML 100 ML IV ×3 (00:48→22:24)
[2022-02-18] MEDS: Ipratropium/Albuterol Sulfate 3 ML AMPUL.NEB INHALATION ×4 (01:06→19:05)
[2022-02-18] MEDS: ALPRAZolam 0.5 MG Tablet PO ×3 (01:30→16:12)
[2022-02-18] MEDS: busPIRone 5 MG Tablet 20 MG PO ×3 (06:01→22:36)
[2022-02-18] MEDS: oxyCODONE 5 MG Tablet 10 MG PO ×3 (06:04→22:42)
[2022-02-18 06:06] LABS: Anion Gap 6 (5-15); BUN 7 mg/dL (7-18); BUN/Creat Ratio 9.2 RATIO (10-20); Calcium,Total 7.9 mg/dL (8.5-10.1); Chloride 105 mmol/L (98-107); Creatinine, Serum 0.76 mg/dL (0.55-1.02); EST Glomerular Filtration Rate 83 mL/min (>60); Est Glom Filt Rate - Afr Amer 101 mL/min (>60); Estimated Creatinine Clearance 63.04 ml/min; Glucose 118 mg/dL (74-106); Potassium 3.2 mmol/L (3.5-5.1); Sodium Level 140 mmol/L (136-145)
--- NOTE | 2022-02-18 07:14 | PN.HOSP_ITS ---
Subjective Subjective Still nauseated. Tolerated clear liquid diet. Objective Data Objective Data Vital Signs: Vital Signs Temp Pulse Resp BP Pulse Ox 37.5 C H 110 H 20 H 108/68 97 02/18/22 05:56 02/18/22 05:56 02/18/22 05:56 02/18/22 05:56 02/18/22 05:56 Oxygen Flow Rate (L/min) 4 Oxygen Delivery Method Nasal Cannula Weight: 74 kg Body Mass Index (BMI) 29.8 Intake & Output: Intake and Output for Last 24 Hours 02/16/22 02/17/22 02/18/22 23:59 23:59 23:59 Intake Total 2297.5 / 2297.5 383.33 / 383.33 Balance 2297.5 / 2297.5 383.33 / 383.33 Lab / Micro Data Result Diagrams: 02/17/22 11:50 02/18/22 05:21 Labs: Laboratory Results - last 24 hr 02/17/22 11:50: WBC 13.3 H, RBC 3.25 L, Hgb 10.2 L, Hct 31.4 L, MCV 96.6, MCH 31.4, MCHC 32.5, RDW Std Deviation 50.6 H, RDW Coeff of Noe 14.2, Plt Count 253, MPV 9.5, Immature Gran % (Auto) 0.900, Neut % (Auto) 76.0 H, Lymph % (Auto) 12.9 L, [place] % (Auto) 9.5, Eos % (Auto) 0.5, Baso % (Auto) 0.2, Absolute Neuts (auto) 10.1 H, Absolute Lymphs (auto) 1.72, Nucleated RBC % 0 02/17/22 11:50: PT 13.5, INR 1.1, APTT 29.7 02/17/22 11:50: Sodium 137, Potassium 3.3 L, Chloride 99, Carbon Dioxide 32.0, Anion Gap 6, BUN 8, Creatinine 0.83, Estim Creat Clear Calc 57.72, Est GFR (MDRD) Af Amer 91, Est GFR (MDRD) Non-Af 75, BUN/Creatinine Ratio 9.7 L, Glucose 116 H, Calcium 8.6, Total Bilirubin 0.90, AST 13 L, ALT 14, Alkaline Phosphatase 62, Total Protein 5.6 L, Albumin 2.6 L, Globulin 3.0, Albumin/Globulin Ratio 0.9 02/17/22 11:50: Lactic Acid 1.2 02/17/22 12:49: Urine Color Yellow, Urine Clarity Cloudy, Urine pH 7.0, Ur Specific [place] 1.010, Urine Protein 30 H, Urine Glucose (UA) Normal, Urine Ketones 5 H, Urine Occult Blood 150 H, Urine Nitrite Negative, Urine Bilirubin Negative, Urine Urobilinogen 4 H, Ur Leukocyte Esterase 100 H, Urine RBC 10-25 SEEN, Urine WBC 10-25 SEEN, Ur Squamous Epith Cells 5-10 SEEN, Urine Bacteria 3+, Urine Mucus 0 SEEN 02/18/22 05:21: Sodium 140, Potassium 3.2 L, Chloride 105, Carbon Dioxide 29.0, Anion Gap 6, BUN 7, Creatinine 0.76, Estim Creat Clear Calc 63.04, Est GFR (MDRD) Af Amer 101, Est GFR (MDRD) Non-Af 83, BUN/Creatinine Ratio 9.2 L, Glucose 118 H, Calcium 7.9 L Micro: Microbiology 02/17/22 11:50 Nasal Secretion SARS-CoV-2 & FLU Antigen (Rapid) - Final Radiography Diagnostic Testing: Radiology Impression Foot X-Ray 02/17/22 11:30 IMPRESSION: Soft tissue swelling. No demonstrated fracture. Electronically Signed: Tacho Matt MD at 12:50 EDT , Chest X-Ray 02/17/22 11:57 IMPRESSION: Blunting of the left costophrenic angle which may represent pleural effusion or scar. There is no focal consolidation. Electronically Signed: Luis Garrison MD at 12:26 EDT , Physical Exam Const alert and no apparent distress Cardio regular rate, regular rhythm, S1 normal heart sound and S2 normal heart sound GI normal to inspection, nondistended, normoactive bowel sounds, soft to palpation, non-tender and non-distended Extremity Extremity Narrative: bruising on dorsum, lateral left foot. Psych affect normal Assessment & Plan Assessment/Plan (1) Cystitis: (2) Hypokalemia: (3) Vomiting: (4) Contusion of foot: PLAN: 1. cystitis * UCx pending * continue Cipro 2. Hypokalemia * replace * correct magnesium 3. Vomiting * improved. advance diet has taken some oral 4. foot contusion * no fxr on xray, though swelling noted * 2/2 ankle sprain 5. Debility * PT OT eval 6. Disposition * TBD Charges/Coding Visit Charges OBSV E&M: 44066 Subsequent observation care L2
[2022-02-18] MEDS: Sertraline 50 MG Tablet 75 MG PO (08:22)
[2022-02-18] MEDS: Pantoprazole Sodium 40 MG Tablet PO (08:22)
[2022-02-18] MEDS: dilTIAZem CD 240 MG Capsule PO (08:22)
[2022-02-18] MEDS: predniSONE 10 MG Tablet PO (08:22)
[2022-02-18] MEDS: Potassium Chloride Oral Tablet 20 MEQ 40 MEQ PO ×2 (08:30→13:25)
[2022-02-18] MEDS: Ciprofloxacin 400 MG/200 ML BAG 200 MG IV ×2 (09:18→22:26)
[2022-02-18 09:20] LABS: Magnesium 1.3 mg/dL (1.6-2.6)
[2022-02-18] MEDS: Magnesium Sulfate 4gm/100mL 4 GM/100 ML IV.SOLN. IV (13:22)
[2022-02-19] VITALS (9 sets, daily range): BP systolic 107–150; BP diastolic 66–78; PULSE 55–99; RESP 17–20; TEMP 36.6–37.1; O2SAT 91–99
[2022-02-19] MEDS: Ipratropium/Albuterol Sulfate 3 ML AMPUL.NEB INHALATION ×4 (01:18→19:21)
[2022-02-19] MEDS: ALPRAZolam 0.5 MG Tablet PO ×2 (04:46→13:39)
[2022-02-19] MEDS: busPIRone 5 MG Tablet 20 MG PO ×3 (06:02→22:00)
[2022-02-19] MEDS: oxyCODONE 5 MG Tablet 10 MG PO ×3 (06:04→22:00)
[2022-02-19 06:42] LABS: Anion Gap 4 (5-15); BUN 3 mg/dL (7-18); BUN/Creat Ratio 4.5 RATIO (10-20); Calcium,Total 7.5 mg/dL (8.5-10.1); Chloride 111 mmol/L (98-107); Creatinine, Serum 0.67 mg/dL (0.55-1.02); EST Glomerular Filtration Rate 95 mL/min (>60); Est Glom Filt Rate - Afr Amer 115 mL/min (>60); Glucose 97 mg/dL (74-106); Potassium 3.4 mmol/L (3.5-5.1); Sodium Level 142 mmol/L (136-145)
--- NOTE | 2022-02-19 06:57 | PN.HOSP_ITS ---
Subjective Subjective Feels much better. Nausea better. Tolerating PO. Feels unsteady on her feet and is unsure if she would be safe to return home. Objective Data Objective Data Vital Signs: Vital Signs Temp Pulse Resp BP Pulse Ox 36.6 C 99 20 H 150/76 H 96 02/19/22 04:45 02/19/22 04:45 02/19/22 04:45 02/19/22 04:45 02/19/22 04:45 Oxygen Flow Rate (L/min) 4 Oxygen Delivery Method Nasal Cannula Weight: 74 kg Body Mass Index (BMI) 29.8 Intake & Output: Intake and Output for Last 24 Hours 02/17/22 02/18/22 02/19/22 23:59 23:59 23:59 Intake Total 2297.5 / 2297.5 3185.00 / 3185.00 200 / 200 Balance 2297.5 / 2297.5 3185.00 / 3185.00 200 / 200 Lab / Micro Data Result Diagrams: 02/17/22 11:50 02/19/22 05:11 Labs: Laboratory Results - last 24 hr 02/18/22 05:21: Magnesium 1.3 L 02/19/22 05:11: Sodium 142, Potassium 3.4 L, Chloride 111 H, Carbon Dioxide 27.0, Anion Gap 4 L, BUN 3 L, Creatinine 0.67, Estim Creat Clear Calc 71.50, Est GFR (MDRD) Af Amer 115, Est GFR (MDRD) Non-Af 95, BUN/Creatinine Ratio 4.5 L, Glucose 97, Calcium 7.5 L Micro: Microbiology 02/17/22 12:49 Urine, Clean Catch Urine Culture - Preliminary GPC Poss Enterococcus sp 02/17/22 11:50 Nasal Secretion SARS-CoV-2 & FLU Antigen (Rapid) - Final Physical Exam Const alert and no apparent distress Resp normal respiratory effort, no retractions, no use of accessory muscles and clear to auscultation bilaterally Cardio regular rate, regular rhythm, S1 normal heart sound and S2 normal heart sound GI normal to inspection, nondistended, normoactive bowel sounds, soft to palpation, non-tender and non-distended Neuro Sensorium / Orientation: awake and alert Psych affect normal Assessment & Plan Assessment/Plan (1) Cystitis: (2) Hypokalemia: (3) Vomiting: (4) Contusion of foot: PLAN: 1. cystitis * UCx pending, showing possible enterococcus sp. * continue Cipro 2. Hypokalemia * replace * correct magnesium 3. Vomiting * improved. advance diet has taken some oral 4. foot contusion * no fxr on xray, though swelling noted * 2/2 ankle sprain 5. Debility * PT OT eval 6. Disposition * TBD Charges/Coding Visit Charges Inpatient E&M: 52310 Subs Hosp L2
[2022-02-19] MEDS: Potassium Chloride Oral Tablet 20 MEQ 40 MEQ PO ×2 (08:46→13:45)
[2022-02-19] MEDS: Pantoprazole Sodium 40 MG Tablet PO (08:48)
[2022-02-19] MEDS: Sertraline 50 MG Tablet 75 MG PO (08:48)
[2022-02-19] MEDS: dilTIAZem CD 240 MG Capsule PO (08:49)
[2022-02-19] MEDS: Ciprofloxacin 400 MG/200 ML BAG 200 MG IV ×2 (08:53→22:01)
[2022-02-19] MEDS: 0.9% Normal Saline 1,000 ML 100 ML IV ×2 (08:54→18:03)
[2022-02-19] MEDS: predniSONE 10 MG Tablet PO (08:58)
[2022-02-19] MEDS: Ensure Clear 120 ML Liquid PO (13:39)
[2022-02-19] MEDS: Albuterol 2.5 MG/3 ML VIAL.NEB. INHALATION (22:20)
[2022-02-20 01:45] VITALS: PULSE 90; RESP 18
[2022-02-20] MEDS: Ipratropium/Albuterol Sulfate 3 ML AMPUL.NEB INHALATION ×2 (01:45→07:00)
[2022-02-20 02:20] VITALS: BP 106/63; PULSE 96; RESP 18; TEMP 37.1; O2SAT 99
[2022-02-20] MEDS: ALPRAZolam 0.5 MG Tablet PO (02:21)
[2022-02-20] MEDS: busPIRone 5 MG Tablet 20 MG PO (05:02)
[2022-02-20] MEDS: 0.9% Normal Saline 1,000 ML 100 ML IV (05:03)
[2022-02-20 07:00] VITALS: RESP 20; O2SAT 97
--- NOTE | 2022-02-20 07:09 | PCM.PN.HOSP ---
Subjective Subjective No new complaints. Objective Data Objective Data Vital Signs: Vital Signs Temp Pulse Resp BP Pulse Ox 37.1 C 96 20 H 106/63 97 02/20/22 02:20 02/20/22 02:20 02/20/22 07:00 02/20/22 02:20 02/20/22 07:00 Oxygen Flow Rate (L/min) 5 Oxygen Delivery Method Nasal Cannula Weight: 74 kg Body Mass Index (BMI) 29.8 Intake & Output: Intake and Output for Last 24 Hours 02/18/22 02/19/22 02/20/22 23:59 23:59 23:59 Intake Total 3185.00 / 3185.00 3258.34 / 3258.34 803.33 / 803.33 Balance 3185.00 / 3185.00 3258.34 / 3258.34 803.33 / 803.33 Lab / Micro Data Result Diagrams: 02/17/22 11:50 02/19/22 05:11 Micro: Microbiology 02/17/22 11:50 Blood Culture (Wb) - Anticubital Right Blood Culture - Preliminary No growth in 48 hours. 02/17/22 11:30 Blood Culture (Wb) - Left Wrist Blood Culture - Preliminary No growth in 48 hours. 02/17/22 12:49 Urine, Clean Catch Urine Culture - Final Enterococcus faecalis 02/17/22 11:50 Nasal Secretion SARS-CoV-2 & FLU Antigen (Rapid) - Final Physical Exam Const alert and no apparent distress Resp normal respiratory effort, no retractions, no use of accessory muscles and clear to auscultation bilaterally Cardio regular rate, regular rhythm, S1 normal heart sound and S2 normal heart sound GI normal to inspection, nondistended, normoactive bowel sounds Assessment & Plan Assessment/Plan (1) Cystitis: (2) Hypokalemia: (3) Vomiting: (4) Contusion of foot: PLAN: 1. cystitis UCx E. faecalis, tetracycline resistance change to nitrofurantoin 2. Hypokalemia replace correct magnesium 3. Vomiting improved. advance diet has taken some oral 4. foot contusion no fxr on xray, though swelling noted 2/2 ankle sprain 5. Debility PT OT eval 6. Disposition home with [facility].
[2022-02-20] MEDS: Potassium Chloride Oral Tablet 20 MEQ 40 MEQ PO (08:11)
[2022-02-20] MEDS: oxyCODONE 5 MG Tablet 10 MG PO (08:19)
[2022-02-20] MEDS: Acetaminophen 325 MG Tablet 650 MG PO (08:19)
[2022-02-20 08:20] VITALS: BP 128/59; PULSE 98; RESP 18; TEMP 37.2; O2SAT 99
[2022-02-20] MEDS: Ensure Clear 120 ML Liquid PO (09:59)
[2022-02-20] MEDS: Nitrofurantoin Macrocrystals 100 MG Capsule PO (10:00)
[2022-02-20] MEDS: Sertraline 50 MG Tablet 75 MG PO (10:00)
[2022-02-20] MEDS: dilTIAZem CD 240 MG Capsule PO (10:01)
[2022-02-20] MEDS: Pantoprazole Sodium 40 MG Tablet PO (10:01)
--- NOTE | 2022-02-20 10:19 | DCINST_ITS ---
Discharge Instructions Diet Discharge Diet: Low fat / Low cholesterol Activity Discharge Activity: Return to Normal Activity Follow Up Care Test Results: Test results from this visit will be discussed in further detail at your follow-up appointment, if applicable. Discharge Plan Admission Admit Date/Time: 02/17/22 14:56 Primary Reason for Your Visit: UTI Attending Provider: Chi Becerril Primary Care Provider: eJnnifer Coelho NP Consulting Providers: Mart Jett Discharge Orders/Prescriptions Prescriptions: New nitrofurantoin monohyd/m-cryst 100 mg Capsule 100 mg PO BIDCM Qty: 9 RF: 0 Continued buspirone 10 mg tablet 20 mg PO TID RF: 0 azelastine-fluticasone [Dymista] 137-50 mcg/spray spray,non-aerosol 1 spray INTRANASAL BID RF: 0 cyclobenzaprine 5 mg tablet 5 mg PO 4X/DAY PRN PRN (Reason: Muscle Spasm) RF: 0 furosemide 40 mg tablet 40 mg PO DAILY PRN (Reason: Swelling) RF: 0 sertraline 100 mg tablet 75 mg PO DAILY RF: 0 oxycodone 10 mg tablet 5 mg PO Q6H RF: 0 albuterol sulfate 2.5 MG/3 ML solution for nebulization 2.5 mg INHALATION Q4H PRN PRN (Reason: Sob &/Or Wheezing) RF: 0 diltiazem HCl 240 MG capsule 240 mg PO DAILY RF: 0 alprazolam 0.5 mg tablet 0.5 - 1 mg PO Q6H PRN (Reason: Anxiety) RF: 0 alendronate 70 MG tablet 70 mg PO SA RF: 0 potassium chloride 20 mEq Tablet Extended Release 20 meq PO BID RF: 0 fexofenadine 180 mg Tablet 180 mg PO DAILY RF: 0 prochlorperazine maleate 10 mg Tablet 10 mg PO DAILY RF: 0 omeprazole 40 mg Capsule,Delayed Release(Dr/Ec) 40 mg PO DAILY RF: 0 Spiriva Respimat 2.5 mcg/actuation Mist 1 puff INHALATION QHS RF: 0 imatinib 400 mg tablet 400 mg PO DAILY RF: 0 budesonide-formoterol [Symbicort] 160-4.5 mcg/actuation HFA aerosol inhaler 2 puff INHALATION BID RF: 0 prednisone 10 mg tablet 10 mg PO QDAY RF: 0 azelastine 137 mcg (0.1 %) aerosol,spray 1 spray INTRANASAL BID RF: 0 albuterol sulfate 90 mcg/actuation HFA aerosol inhaler 2 puff INHALATION Q4H PRN PRN (Reason: Sob &/Or Wheezing) Qty: 18 RF: 6 fluticasone propionate 50 mcg/actuation spray,suspension 2 spray INTRANASAL DAILY Qty: 50 RF: 3 Discontinued prednisone 20 mg tablet 40 mg PO DAILY Qty: 10 RF: 0 Referrals / Follow Up: Jennifer Coelho [employer]ATING EXPERT, [employer]ATING [employer]PERT-C [Primary Care Provider] - Within 2 Weeks Disposition Disposition (needs filled in before D/C Order can be placed): Home Health Service
--- NOTE | 2022-02-20 10:20 | CASEMGMT ---
ESTEPHANIA JUNIOR Assessment: Face to Face with pt for initial transition planning/care coordination assessment. ESTEPHANIA JUNIOR introduced self and role at [facility], pt voices understanding and consents to assessment. Pt sitting up in chair with oxygen on in no distress. Pt is A/O x4 and answers all questions appropriately at this time. Care providers, pharmacy, and demographics verified/updated. Admitting Dx: cystitis/nausea PCP:Jennifer Coelho, ROTARY CUTTER FEEDER- comes to pt home and pt has an appt this week. Specialists:Khai pulmyrna; Shen, onc; active with Palliative Care in [place], [facility] Preferred Pharmacy: [facility] Insurance: Medicaid Prescription Benefit: yes LW/HPOA: Pt has LW/DPOA on file at [facility]. Pt listed DPOA is Joshua Craft, uncle. Pt states that this has been changed. She is not sure who she changed it to but she wants her uncle to have no information about her and she wants nothing to do with him. She is aware that this is the only DPOA on file and she may bring in her new one to be scanned into the chart. LNOK: Olivia Giles, friend Living Arrangements: Pt lives in a ground level apt with no steps to enter. Pt states she needs assistance with bathing and dressing. Transportation: Pt reports she has no transportation. Her ROTARY CUTTER FEEDER comes to her house. Pt states she needs transportation home. TC to [place], spoke with Cecy, they do not have availability today. She gave another number to [facility]. TC to them, they do not bill [facility]. SW made aware and will set up through [facility]. DME/HHC/SNF: Pt has a rollator, electric w/c, nebulizer, CPAP with O2 and portable concentrator and oxygen through [employer]. Pt states she mostly uses the electric w/c. TC to [employer], spoke with Levon. Pt rx is 4L at rest and 5L with exertion. Pt states she has had lots of HHC. She does not know the name of them. She has been to [facility] in the past as well. Pt states she gets aide services through [employer] 5 days/wk for 5hrs per day. She states a nurse also comes 1x/wk. Pt denies need for any skilled HHC. Pt states no concerns with going home at time of dc other than needing transportation. Pt states no further concerns/needs. CM to follow. Advised pt to ask CM if any further question/concerns/needs arise, voices understanding. Pt Goal: Home Plan: Home
--- NOTE | 2022-02-20 10:25 | DS.PCM_ITS ---
Providers Date of Admission: 02/17/22 Primary Care Physician: YARELIS Dumont Reason For Visit: CYSTITIS / NAUSEA Diagnosis Discharge Diagnosis (1) Cystitis: Status: Acute Code(s): N30.90 - Cystitis, unspecified without hematuria (2) Hypokalemia: Status: Acute Code(s): E87.6 - Hypokalemia (3) Vomiting: Status: Acute Code(s): R11.10 - Vomiting, unspecified (4) Contusion of foot: Status: Acute Code(s): S90.30XA - Contusion of unspecified foot, initial encounter Medications at Discharge Home Medications albuterol sulfate 2.5 mg INHALATION Q4H PRN PRN 10/18/18 diltiazem HCl 240 mg PO DAILY 10/18/18 alendronate 70 mg PO SA 07/06/20 alprazolam 0.5 mg tablet 0.5 - 1 mg PO Q6H PRN tab 11/03/20 buspirone 10 mg tablet 20 mg PO TID tab 11/03/20 furosemide 40 mg tablet 40 mg PO DAILY PRN 11/03/20 oxycodone 10 mg tablet 5 mg PO Q6H 11/03/20 sertraline 100 mg tablet 75 mg PO DAILY 11/03/20 azelastine-fluticasone 137 mcg-50 mcg/spray nasal spray 1 spray INTRANASAL BID 01/04/21 cyclobenzaprine 5 mg tablet 5 mg PO 4X/DAY PRN PRN 01/04/21 albuterol sulfate 90 mcg/actuation aerosol inhaler 2 puff INHALATION Q4H PRN PRN #18 g 06/16/21 fluticasone propionate 50 mcg/actuation nasal spray,suspension 2 spray INTRANASAL DAILY #50 mcg 06/16/21 potassium chloride 20 meq PO BID 01/05/22 Spiriva Respimat 1 puff INHALATION QHS 02/05/22 budesonide-formoterol [Symbicort] 2 puff INHALATION BID 02/05/22 fexofenadine 180 mg PO DAILY 02/05/22 imatinib 400 mg PO DAILY 02/05/22 omeprazole 40 mg PO DAILY 02/05/22 prochlorperazine maleate 10 mg PO DAILY 02/05/22 azelastine 1 spray INTRANASAL BID 05/13/22 prednisone 10 mg PO QDAY 02/17/22 nitrofurantoin monohyd/m-cryst 100 mg PO BIDCM #9 cap 02/20/22 Hospital Course Operations None Procedures None Summary of Care Provided Minutes Spent on Discharge: 32 Hospital Course: 1. cystitis UCx E. faecalis, tetracycline resistance change to nitrofurantoin 2. Hypokalemia replace correct magnesium 3. Vomiting improved. advance diet has taken some oral 4. foot contusion no fxr on xray, though swelling noted 2/2 ankle sprain 5. CML Patient had been on chemotherapy but had stopped that due to intractable nausea and vomiting. Patient advised to follow-up with Dr. Gotti 6. Disposition home with [facility]. Weight / BMI Weight Weight: 74 kg Body Mass Index (BMI) 29.8 ABG / Lab / Microbiology Data Result Diagrams: 02/17/22 11:50 02/19/22 05:11 Microbiology: Microbiology 02/17/22 11:50 Blood Culture (Wb) - Anticubital Right Blood Culture - Preliminary No growth in 48 hours. 02/17/22 11:30 Blood Culture (Wb) - Left Wrist Blood Culture - Preliminary No growth in 48 hours. 02/17/22 12:49 Urine, Clean Catch Urine Culture - Final Enterococcus faecalis 02/17/22 11:50 Nasal Secretion SARS-CoV-2 & FLU Antigen (Rapid) - Final D/C Instructions Discharge Diet: Low fat / Low cholesterol Meaningful Use Info Meaningful Use Diagnoses (Choose all that apply): None applicable Discharge Plan Admission Admit Date/Time: 02/17/22 14:56 Primary Reason for Your Visit: UTI Attending Provider: Chi Becerril Primary Care Provider: Jennifer Coelho NP Consulting Providers: Mart Jett Discharge Orders/Prescriptions Prescriptions: New nitrofurantoin monohyd/m-cryst 100 mg Capsule 100 mg PO BIDCM Qty: 9 RF: 0 Continued buspirone 10 mg tablet 20 mg PO TID RF: 0 azelastine-fluticasone [Dymista] 137-50 mcg/spray spray,non-aerosol 1 spray INTRANASAL BID RF: 0 cyclobenzaprine 5 mg tablet 5 mg PO 4X/DAY PRN PRN (Reason: Muscle Spasm) RF: 0 furosemide 40 mg tablet 40 mg PO DAILY PRN (Reason: Swelling) RF: 0 sertraline 100 mg tablet 75 mg PO DAILY RF: 0 oxycodone 10 mg tablet 5 mg PO Q6H RF: 0 albuterol sulfate 2.5 MG/3 ML solution for nebulization 2.5 mg INHALATION Q4H PRN PRN (Reason: Sob &/Or Wheezing) RF: 0 diltiazem HCl 240 MG capsule 240 mg PO DAILY RF: 0 alprazolam 0.5 mg tablet 0.5 - 1 mg PO Q6H PRN (Reason: Anxiety) RF: 0 alendronate 70 MG tablet 70 mg PO SA RF: 0 potassium chloride 20 mEq Tablet Extended Release 20 meq PO BID RF: 0 fexofenadine 180 mg Tablet 180 mg PO DAILY RF: 0 prochlorperazine maleate 10 mg Tablet 10 mg PO DAILY RF: 0 omeprazole 40 mg Capsule,Delayed Release(Dr/Ec) 40 mg PO DAILY RF: 0 Spiriva Respimat 2.5 mcg/actuation Mist 1 puff INHALATION QHS RF: 0 imatinib 400 mg tablet 400 mg PO DAILY RF: 0 budesonide-formoterol [Symbicort] 160-4.5 mcg/actuation HFA aerosol inhaler 2 puff INHALATION BID RF: 0 prednisone 10 mg tablet 10 mg PO QDAY RF: 0 azelastine 137 mcg (0.1 %) aerosol,spray 1 spray INTRANASAL BID RF: 0 albuterol sulfate 90 mcg/actuation HFA aerosol inhaler 2 puff INHALATION Q4H PRN PRN (Reason: Sob &/Or Wheezing) Qty: 18 RF: 6 fluticasone propionate 50 mcg/actuation spray,suspension 2 spray INTRANASAL DAILY Qty: 50 RF: 3 Discontinued prednisone 20 mg tablet 40 mg PO DAILY Qty: 10 RF: 0 Referrals / Follow Up: Jennifer Coelho NP, STRUCTURAL STEEL TRADES WORKER-C [Primary Care Provider] - Within 2 Weeks Disposition Disposition (needs filled in before D/C Order can be placed): Home Health Service Charges/Coding Visit Charges Inpatient E&M: 61218 Disch Hosp
--- NOTE | 2022-02-20 11:30 | CASEMGMT ---
Social Work Transportation arranged with [facility] for [address] turkey picker via wheelchair van to return home. PIPO Garcia
[2022-02-20] MEDS: predniSONE 10 MG Tablet PO (11:42)
--- NOTE | 2022-02-20 14:14 | CASEMGMT ---
Discharge summer and packet faxed to [facility]. Chuckie Lao RN CM
== END 2022-02-20 12:15 | disposition home health service (06) | DRG 463 ==
LOC: ED 14:24 → MS3 02-18 06:58
PROVIDERS: Admitting Provider Internal Medicine; Emergency Provider Emergency Medicine; PCP Nurse Practitioner Family
DX: N30.00 Acute cystitis without hematuria (principal); C92.10 Chronic myeloid leukemia, BCR/ABL-positive, not having achieved remission; J96.11 Chronic respiratory failure with hypoxia; J44.9 Chronic obstructive pulmonary disease, unspecified; K51.90 Ulcerative colitis, unspecified, without complications; M79.7 Fibromyalgia; S90.122A Contusion of left lesser toe(s) without damage to nail, initial encounter; W19.XXXA Unspecified fall, initial encounter; S80.12XA Contusion of left lower leg, initial encounter; E87.6 Hypokalemia; R11.2 Nausea with vomiting, unspecified; Z16.29 Resistance to other single specified antibiotic; B95.2 Enterococcus as the cause of diseases classified elsewhere; Z99.81 Dependence on supplemental oxygen; Z86.16 Personal history of COVID-19; F32.A Depression, unspecified; F41.1 Generalized anxiety disorder; M81.0 Age-related osteoporosis without current pathological fracture; Z79.899 Other long term (current) drug therapy; Z87.891 Personal history of nicotine dependence; R53.81 Other malaise
CPT/HCPCS: 36415; 71045; 73630; 80048; 80053; 81001; 83605; 83735; 85025; 85610; 85730; 87040; 87077; 87086; 87088; 87186; 87428; 93005; 94640; 97162; 97166; 97802; 99251; 99285; J7030; G0463; J0744

== ENCOUNTER 2022-03-21 17:23 | Emergency (ER) | payer MEDICAID, SELFPAY ==
[2022-03-21 17:25] VITALS: BP 160/89; PULSE 107; RESP 16; TEMP 36.8; O2SAT 96; BMI 29.2
--- NOTE | 2022-03-21 17:57 | EDS_ITS ---
HPI History of Present Illness Chief Complaint: Eye Problem Informant: patient Onset/Context/Timing Location: Right Eye Onset: Today Context: Gradual Onset Timing: Continuous Worsened by: Nothing Relieved by: Nothing Associated Symptoms Associated Symptoms - Eyes: Crusting and Matting History of injury: No Narrative Narrative: Patient presents with visual changes in her right eye that began today. Patient states she has green spots in her right vision. Patient states there are some white shapes around the green spots. Patient states that the green spots appear to look like a Dragon. Patient states nothing makes it better nothing makes it worse. Patient does admit to some crusting and matting in her right eye. Patient denies any trauma or injury. Patient denies any foreign body sensation. Patient states she has cataracts in her left eye and is legally blind in her left eye. PFSH PFS Medical History Anxiety Asthma Cancer Carpal tunnel syndrome Chronic hypoxemic respiratory failure CML (chronic myelocytic leukemia) COPD (chronic obstructive pulmonary disease) COVID-19 Depression Emphysema of lung Fibromyalgia DREW (generalized anxiety disorder) Nicotine abuse Obesity (BMI 30.0-34.9) On home oxygen therapy Osteoporosis Poor compliance with medication Stage 3 severe COPD by GOLD classification Tachycardia Ulcerative colitis Home Medications albuterol sulfate 2.5 mg INHALATION Q4H PRN PRN 10/18/18 [History Last Taken 02/14/22] diltiazem HCl 240 mg PO DAILY 10/18/18 [History Last Taken 02/15/22] alendronate 70 mg PO SA 07/06/20 [History Last Taken 07/31/20] alprazolam 0.5 mg tablet 0.5 - 1 mg PO Q6H PRN tab 11/03/20 [History Last Taken 02/17/22] buspirone 10 mg tablet 20 mg PO TID tab 11/03/20 [History Last Taken 02/14/22] furosemide 40 mg tablet 40 mg PO DAILY PRN 11/03/20 [History Last Taken Unknown] oxycodone 10 mg tablet 5 mg PO Q6H 11/03/20 [History Last Taken 02/17/22] sertraline 100 mg tablet 75 mg PO DAILY 11/03/20 [History Last Taken 02/14/22] azelastine-fluticasone 137 mcg-50 mcg/spray nasal spray 1 spray INTRANASAL BID 01/04/21 [History Last Taken Unknown] cyclobenzaprine 5 mg tablet 5 mg PO 4X/DAY PRN PRN 01/04/21 [History Last Taken 02/15/22] albuterol sulfate 90 mcg/actuation aerosol inhaler 2 puff INHALATION Q4H PRN PRN #18 g 06/16/21 [Rx Last Taken 02/14/22] fluticasone propionate 50 mcg/actuation nasal spray,suspension 2 spray INTRANASAL DAILY #50 mcg 06/16/21 [Rx Last Taken 02/15/22] potassium chloride 20 meq PO BID 01/05/22 [History Last Taken 02/14/22] Spiriva Respimat 1 puff INHALATION QHS 02/05/22 [History Last Taken 02/14/22] budesonide-formoterol [Symbicort] 2 puff INHALATION BID 02/05/22 [History Last Taken Unknown] fexofenadine 180 mg PO DAILY 02/05/22 [History Last Taken Unknown] imatinib 400 mg PO DAILY 02/05/22 [History Last Taken 02/14/22] omeprazole 40 mg PO DAILY 02/05/22 [History Last Taken 02/14/22] prochlorperazine maleate 10 mg PO DAILY 02/05/22 [History Last Taken 02/16/22] azelastine 1 spray INTRANASAL BID 02/17/22 [History Last Taken Unknown] prednisone 10 mg PO QDAY 02/17/22 [History Last Taken 02/13/22] nitrofurantoin monohyd/m-cryst 100 mg PO BIDCM #9 cap 02/20/22 [Rx Last Taken Unknown] Allergy/AdvReac Type Severity Reaction Status Date / Time Penicillins Allergy Severe Hives Verified 03/21/22 17:24 Sulfa (Sulfonamide Allergy Intermediate Hives Verified 03/21/22 17:24 Antibiotics) azithromycin AdvReac Severe Diarrhea Verified 03/21/22 17:24 codeine AdvReac Severe Vomiting Verified 03/21/22 17:24 ondansetron [From Zofran] AdvReac Severe Nausea Verified 03/21/22 17:24 ondansetron HCl AdvReac Severe Nausea Verified 03/21/22 17:24 [From Zofran (as hydrochloride)] pregabalin [From Lyrica] AdvReac Severe i can't Verified 03/21/22 17:24 see propoxyphene napsylate AdvReac Severe Vomiting Verified 03/21/22 17:24 [From Darvocet-N 100] Family History Mother Ovarian cancer Brother Heart disease Grandmother Heart disease Grandfather Heart disease Surgical History History of cardiac cath History of cranial surgery History of hemorrhoidectomy History of hysterectomy Social History Smoking Status: Former smoker Tobacco: How many years used: 40 second hand exposure: No alcohol intake: never substance use type: does not use caffeine: Yes Type: carbonated beverages and tea leila/congregational: None seatbelt use: always do you feel safe at home: Yes ROS ROS ED Constitutional Constitutional ED: Denies chills or fever(s) Eyes Eyes: Reports change in vision right; Denies blurry vision ENT ENT ED: Denies rhinorrhea or sore throat Cardiovascular Cardiovascular: Denies chest pain or palpitations Respiratory/Chest Respiratory/Chest: Reports cough; Denies dyspnea Gastrointestinal Gastrointestinal: Reports nausea; Denies vomiting Genitourinary Genitourinary ED: Denies dysuria or hematuria Musculoskeletal Musculoskeletal: Reports back pain and neck pain Integumentary Denies abscess or rash Neurologic Neurologic: Denies headache(s) or weakness Allergic/Immunologic Allergic/Immunologic ED: Denies mouth swelling or urticaria EXAM Physical Exam Const Vital Signs: 03/21/22 17:25 Temperature 98.3 F Temperature Source Oral Pulse Rate 107 H Respiratory Rate 16 Blood Pressure 160/89 H Blood Pressure Mean 112 Pulse Ox 96 Oxygen Delivery Method Nasal Cannula Oxygen Flow Rate (L/min) 4 Positive well nourished and well developed General Appearance ED: well developed and NAD HEENT atraumatic Eyes General Eye ED: Yes normal appearance of both eyes and normal light reflex Alignment: alignment normal Periorbital: periorbital findings normal Eyelid: eyelids normal Conjunctiva: conjunctiva normal Sclera: sclera normal Cornea: cornea normal Pupil: PERRL EOM: Negative for EOM abnormal Neck supple and no JVD Neuro oriented x3, CN's II-XII intact bilaterally, moves all extremities and no sensory deficits noted Sensorium / Orientation: alert Motor Exam: strength 5/5 throughout MDM MDM MDM Narrative Medical decision making narrative: CT scan of the brain was obtained. There is no acute intracranial abnormality. This was interpreted by the radiologist and reviewed by myself. Tetracaine and fluorescein dye was applied. There are no corneal abrasions noted. Intraocular pressure was measured and was 24. Case was discussed with Dr. Yeung from ophthalmology. He will follow-up with the patient tomorrow. Patient was instructed to call their office tomorrow and they will schedule her appointment at that time. Patient understands and is agreeable with the plan. All questions were answered. Discharge Plan Triage Chief Complaint: Eye Problem ED Provider: Chi Lewis Dx/Rx/DC Orders Clinical Impression: Visual color changes Instructions: Understanding Vision Problems Prescriptions: No Action buspirone 10 mg tablet 20 mg PO TID RF: 0 azelastine-fluticasone [Dymista] 137-50 mcg/spray spray,non-aerosol 1 spray INTRANASAL BID RF: 0 cyclobenzaprine 5 mg tablet 5 mg PO 4X/DAY PRN PRN (Reason: Muscle Spasm) RF: 0 furosemide 40 mg tablet 40 mg PO DAILY PRN (Reason: Swelling) RF: 0 sertraline 100 mg tablet 75 mg PO DAILY RF: 0 oxycodone 10 mg tablet 5 mg PO Q6H RF: 0 albuterol sulfate 2.5 MG/3 ML solution for nebulization 2.5 mg INHALATION Q4H PRN PRN (Reason: Sob &/Or Wheezing) RF: 0 diltiazem HCl 240 MG capsule 240 mg PO DAILY RF: 0 alprazolam 0.5 mg tablet 0.5 - 1 mg PO Q6H PRN (Reason: Anxiety) RF: 0 alendronate 70 MG tablet 70 mg PO SA RF: 0 potassium chloride 20 mEq Tablet Extended Release 20 meq PO BID RF: 0 fexofenadine 180 mg Tablet 180 mg PO DAILY RF: 0 prochlorperazine maleate 10 mg Tablet 10 mg PO DAILY RF: 0 omeprazole 40 mg Capsule,Delayed Release(Dr/Ec) 40 mg PO DAILY RF: 0 Spiriva Respimat 2.5 mcg/actuation Mist 1 puff INHALATION QHS RF: 0 imatinib 400 mg tablet 400 mg PO DAILY RF: 0 budesonide-formoterol [Symbicort] 160-4.5 mcg/actuation HFA aerosol inhaler 2 puff INHALATION BID RF: 0 prednisone 10 mg tablet 10 mg PO QDAY RF: 0 azelastine 137 mcg (0.1 %) aerosol,spray 1 spray INTRANASAL BID RF: 0 nitrofurantoin monohyd/m-cryst 100 mg Capsule 100 mg PO BIDCM Qty: 9 RF: 0 albuterol sulfate 90 mcg/actuation HFA aerosol inhaler 2 puff INHALATION Q4H PRN PRN (Reason: Sob &/Or Wheezing) Qty: 18 RF: 6 fluticasone propionate 50 mcg/actuation spray,suspension 2 spray INTRANASAL DAILY Qty: 50 RF: 3 Primary Care Provider: Jennifer Coelho NP Referrals: Sravan Yeung MD [STAFF PHYSICIAN] - 1 Day Jennifer Coelho NP, CATHETER FINISHER AND INSPECTOR-C [Primary Care Provider] - 3-5 Days Disposition Disposition: Home, Self Care
--- NOTE | 2022-03-21 18:00 | CT_ITS ---
STUDY: CT BRAIN WITHOUT CONTRAST REASON FOR EXAM: Female, 61 years old. Visual changes RADIATION DOSAGE (If Supplied By Facility): CTDIvol = ( 44.99 ) mGy, DLP = ( 829.85 ) mGycm TECHNIQUE: Transaxial CT imaging of the brain was performed without administration of intravenous contrast material. Individualized dose optimization techniques were used for this CT. COMPARISON: No relevant priors. FINDINGS: There is no intra-/extra-axial fluid collection, mass effect, or midline shift. The will/white matter junction is preserved. Mild diffuse parenchymal volume loss is seen. The basal cisterns are patent. There is a small polyp versus retention cysts in the left maxillary sinus. Near complete opacification of the bilateral mastoid air cells is noted. CT/Brain/Head without Contrast IMPRESSION: No acute intracranial finding. Electronically Signed: Trevin Eason MD at 18:38 EDT ,
[2022-03-21 18:17] VITALS: O2SAT 97
[2022-03-21] MEDS: Tetracaine 0.5% Ophthalmic Bottle OPHTHALMIC (19:21)
[2022-03-21] MEDS: Fluorescein 1 MG STRIP 1 STRIP OPHTHALMIC (19:22)
[2022-03-21 23:10] VITALS: PULSE 81; RESP 16; O2SAT 98
== END 2022-03-21 23:33 | disposition home or self-care (01) ==
PROVIDERS: Emergency Provider Emergency Medicine; PCP Nurse Practitioner Family; Visit Provider Emergency Medicine
DX: H53.8 Other visual disturbances (principal); J44.9 Chronic obstructive pulmonary disease, unspecified; K51.90 Ulcerative colitis, unspecified, without complications; J96.11 Chronic respiratory failure with hypoxia; Z87.891 Personal history of nicotine dependence; F41.9 Anxiety disorder, unspecified; Z85.6 Personal history of leukemia; Z86.16 Personal history of COVID-19; F32.A Depression, unspecified; M79.7 Fibromyalgia; E66.9 Obesity, unspecified; Z99.81 Dependence on supplemental oxygen; M81.0 Age-related osteoporosis without current pathological fracture; Z79.899 Other long term (current) drug therapy; G56.00 Carpal tunnel syndrome, unspecified upper limb; Z79.52 Long term (current) use of systemic steroids
CPT/HCPCS: 70450; 99284

== ENCOUNTER 2022-05-19 12:25 | Emergency (ER) | payer MEDICAID, SELFPAY ==
[2022-05-19 12:26] VITALS: BP 155/86; PULSE 97; RESP 20; TEMP 36.9; O2SAT 98; BMI 29.3
--- NOTE | 2022-05-19 12:39 | ED.VIS.CHEST ---
HPI History of Present Illness Chief Complaint: Chest Other Informant: patient Narrative Narrative: Patient presents with isolated left low anterior lateral chest wall pain. She states she was feeling in her normal state of health this morning. She leaned over the back of a couch to plug in her phone. She rested her chest wall on the edge of the top of the couch. She got an immediate sharp pain in that area. This is the pain she is presenting with. She has chronic dyspnea due to severe end-stage COPD. She is on 3 to 5 L of oxygen. She is actually on palliative care for COPD and leukemia and also overall chronic weakness and medical conditions. She is on long-term pain meds at home. She is also on long-term prednisone at 10 mg a day. Until she leaned over the back of the couch she was feeling normal. This is a well localized sharp pain. She said it does hurt a little bit to breathe but she is not notably more short of breath than normal. But she is due for a breathing treatment. She had no other injury. No fall. PFSH PFS Medical History Anxiety Asthma Cancer Carpal tunnel syndrome Chronic hypoxemic respiratory failure CML (chronic myelocytic leukemia) COPD (chronic obstructive pulmonary disease) COVID-19 Depression Emphysema of lung Fibromyalgia DREW (generalized anxiety disorder) Nicotine abuse Obesity (BMI 30.0-34.9) On home oxygen therapy Osteoporosis Poor compliance with medication Stage 3 severe COPD by GOLD classification Tachycardia Ulcerative colitis Home Medications albuterol sulfate 2.5 mg/3 mL (0.083 %) solution for nebulization 2.5 mg inhalation Q4H PRN PRN Sob &/Or Wheezing 10/18/18 [History Last Taken 02/14/22] diltiazem HCl 240 mg capsule,extended release 24 hr 240 mg PO DAILY heart 10/18/18 [History Last Taken 02/15/22] alprazolam 0.5 mg tablet 0.5 - 1 mg PO Q6H PRN Anxiety 11/03/20 [History Last Taken 02/17/22] furosemide 40 mg tablet 40 mg PO DAILY PRN Swelling 11/03/20 [History Last Taken Unknown] oxycodone 10 mg tablet 5 mg PO Q6H pain 11/03/20 [History Last Taken 02/17/22] sertraline 100 mg tablet 75 mg PO DAILY anxiety 11/03/20 [History Last Taken 02/14/22] azelastine-fluticasone 137 mcg-50 mcg/spray nasal spray (Dymista) 1 spray intranasal BID allergies 01/04/21 [History Last Taken Unknown] cyclobenzaprine 5 mg tablet 5 mg PO 4X/DAY PRN PRN Muscle Spasm 01/04/21 [History Last Taken 02/15/22] albuterol sulfate 90 mcg/actuation aerosol inhaler 2 puff inhalation Q4H PRN PRN Sob &/Or Wheezing #18 grams 06/16/21 [Rx Last Taken 02/14/22] fluticasone propionate 50 mcg/actuation nasal spray,suspension 2 spray intranasal DAILY sinus #50 mcg 06/16/21 [Rx Last Taken 02/15/22] potassium chloride 20 mEq tablet,extended release 20 meq PO BID supplement 01/05/22 [History Last Taken 02/14/22] budesonide-formoterol HFA 160 mcg-4.5 mcg/actuation aerosol inhaler (Symbicort) 2 puff inhalation BID sob 02/05/22 [History Last Taken Unknown] fexofenadine 180 mg tablet 180 mg PO DAILY allergies 02/05/22 [History Last Taken Unknown] imatinib 400 mg tablet 400 mg PO DAILY cancer 02/05/22 [History Last Taken 02/14/22] omeprazole 40 mg capsule,delayed release 40 mg PO DAILY gerd 02/05/22 [History Last Taken 02/14/22] tiotropium bromide 2.5 mcg/actuation mist for inhalation (Spiriva Respimat) 1 puff inhalation QHS copd 02/05/22 [History Last Taken 02/14/22] azelastine 137 mcg (0.1 %) nasal spray aerosol 1 spray intranasal BID allergies 02/17/22 [History Last Taken Unknown] prednisone 10 mg tablet 10 mg PO QDAY copd 02/17/22 [History Last Taken 02/13/22] buspirone 10 mg tablet 10 mg PO TID anxiety 04/27/22 [History Last Taken Unknown] Allergy/AdvReac Type Severity Reaction Status Date / Time Penicillins Allergy Severe Hives Verified 05/19/22 12:26 Sulfa (Sulfonamide Allergy Intermediate Hives Verified 05/19/22 12:26 Antibiotics) azithromycin AdvReac Severe Diarrhea Verified 05/19/22 12:26 codeine AdvReac Severe Vomiting Verified 05/19/22 12:26 ondansetron [From Zofran] AdvReac Severe Nausea Verified 05/19/22 12:26 ondansetron HCl AdvReac Severe Nausea Verified 05/19/22 12:26 [From Zofran (as hydrochloride)] pregabalin [From Lyrica] AdvReac Severe i can't Verified 05/19/22 12:26 see propoxyphene napsylate AdvReac Severe Vomiting Verified 05/19/22 12:26 [From Darvocet-N 100] Family History Mother Ovarian cancer Brother Heart disease Grandmother Heart disease Grandfather Heart disease Surgical History History of cardiac cath History of cranial surgery History of hemorrhoidectomy History of hysterectomy Social History Smoking Status: Former smoker Tobacco: How many years used: 40 second hand exposure: No alcohol intake: never substance use type: does not use caffeine: Yes Type: carbonated beverages and tea leila/samaritan: None seatbelt use: always do you feel safe at home: Yes ROS ROS ED Constitutional Constitutional ED: Denies fever(s) or sweats ENT ENT ED: Denies rhinorrhea or sore throat Cardiovascular Cardiovascular: Reports as per HPI and chest pain Respiratory/Chest Respiratory/Chest: Reports dyspnea Gastrointestinal Gastrointestinal: Denies nausea or vomiting Genitourinary Genitourinary ED: Denies hematuria Musculoskeletal Musculoskeletal: Denies back pain or neck pain Integumentary Denies rash Neurologic Neurologic: Denies headache(s), paresthesias or weakness Psychiatric Psychiatric: Reports anxiety Endocrine Endocrinology: Denies polydipsia or polyuria Hematologic/Lymphatic Hematologic/Lymphatic: Reports easy bruising; Denies easy bleeding Allergic/Immunologic Allergic/Immunologic ED: Denies urticaria EXAM Physical Exam Const Vital Signs: 05/19/22 12:26 05/19/22 12:32 05/19/22 13:03 Temperature 98.4 F Temperature Source Oral Pulse Rate 97 93 Respiratory Rate 20 H 20 H Respiratory Effort Short of Breath Respiratory Pattern Normal Blood Pressure 155/86 H Blood Pressure Mean 109 Pulse Ox 98 Oxygen Delivery Method Nasal Cannula Oxygen Flow Rate (L/min) 4 05/19/22 13:06 05/19/22 13:56 Temperature Temperature Source Pulse Rate 97 Respiratory Rate 17 Respiratory Effort Respiratory Pattern Blood Pressure 146/90 H Blood Pressure Mean 108 Pulse Ox 99 96 Oxygen Delivery Method Nasal Cannula Nasal Cannula Oxygen Flow Rate (L/min) 4 4 Positive well nourished General Appearance ED: NAD HEENT Reports moist mucous membranes HEENT Narrative: No sign of head trauma. atraumatic Eyes General Eye ED: Negative for scleral icterus Neck no lymphadenopathy Chest Wall Chest Narrative: Patient has isolated area of tenderness in the left lower rib cage between the midclavicular line and the anterior axillary line. I am also suspicious that there is a little area of localized swelling in this area. There is no visible bruising. There is no subcutaneous air. Resp Resp Narrative: Patient does have overall quiet lungs. She states she wheezes really all the time. She is not really having more trouble breathing than she normally does. However it does hurt more. Cardio regular rate and regular rhythm GI normal to inspection, nondistended, normoactive bowel sounds Neuro oriented x3 Sensorium / Orientation: Negative for confused, lethargic or stuporous Psych mental status grossly normal Skin no rashes or lesions noted MDM MDM MDM Narrative Medical decision making narrative: Patient's x-ray looked at by me and read by radiology shows a nondisplaced left ninth rib fracture. However there does appear to be some healing. This patient has broken ribs before. I am wondering if she broke through this because this is the area of her discomfort. Clinically, she has findings consistent with a rib fracture. But she is saturating well. She is breathing well. It is a single rib fracture most likely based on x-ray findings. I think she can still go home. She has oxycodone at home. I will give her some pain meds here. We discussed reasons for return and calling EMS. Radiography Diagnostic Testing: Clinical Impression(s) from Imaging Studies Ribs w/Chest X-Ray 05/19/22 12:50 IMPRESSION: Nondisplaced left ninth rib fracture, possibly subacute. Mild left pleural effusion, decreased from prior. Electronically Signed: Roseanna Dozier MD at 13:17 EDT , Discharge Plan Triage Chief Complaint: Chest Other ED Provider: Alvaro Lancaster Dx/Rx/DC Orders Clinical Impression: Left rib fracture Instructions: ED Rib Fracture Prescriptions: No Action buspirone 10 mg tablet 10 mg PO TID azelastine-fluticasone [Dymista] 137-50 mcg/spray spray,non-aerosol 1 spray INTRANASAL BID Rx Instructions: administer into each nostril cyclobenzaprine 5 mg tablet 5 mg PO 4X/DAY PRN PRN (Reason: Muscle Spasm) furosemide 40 mg tablet 40 mg PO DAILY PRN (Reason: Swelling) sertraline 100 mg tablet 75 mg PO DAILY oxycodone 10 mg tablet 5 mg PO Q6H albuterol sulfate 2.5 MG/3 ML solution for nebulization 2.5 mg INHALATION Q4H PRN PRN (Reason: Sob &/Or Wheezing) diltiazem HCl 240 MG capsule 240 mg PO DAILY alprazolam 0.5 mg tablet 0.5 - 1 mg PO Q6H PRN (Reason: Anxiety) potassium chloride 20 mEq Tablet Extended Release 20 meq PO BID fexofenadine 180 mg Tablet 180 mg PO DAILY omeprazole 40 mg Capsule,Delayed Release(Dr/Ec) 40 mg PO DAILY Spiriva Respimat 2.5 mcg/actuation Mist 1 puff INHALATION QHS imatinib 400 mg tablet 400 mg PO DAILY budesonide-formoterol [Symbicort] 160-4.5 mcg/actuation HFA aerosol inhaler 2 puff INHALATION BID prednisone 10 mg tablet 10 mg PO QDAY azelastine 137 mcg (0.1 %) aerosol,spray 1 spray INTRANASAL BID Rx Instructions: administer into each nostril albuterol sulfate 90 mcg/actuation HFA aerosol inhaler 2 puff INHALATION Q4H PRN PRN (Reason: Sob &/Or Wheezing) Qty: 18 6RF fluticasone propionate 50 mcg/actuation spray,suspension 2 spray INTRANASAL DAILY Qty: 50 3RF Primary Care Provider: Jennifer Coelho NP Referrals: Jennifer Coelho NP, REFERENCE LIBRARIAN-C [Primary Care Provider] - 1 Week if not improving Disposition Disposition: Home, Self Care
[2022-05-19] MEDS: fentaNYL 100 MCG/2 ML Ampul 50 MCG IV ×2 (12:45→14:15)
--- NOTE | 2022-05-19 12:50 | RAD_ITS ---
HISTORY: pain, trauma. TECHNIQUE: XR Ribs Unilateral W/ PA Chest Min 3 Views. COMPARISON: 02/17/2022. FINDINGS: CARDIOMEDIASTINAL BORDERS: Cardiac silhouette again mildly enlarged. Mediastinal contour unremarkable. LUNGS: Chronic right basilar scarring. Unchanged mild left basilar atelectasis. PLEURA: Decreased mild left pleural effusion. OSSEOUS STRUCTURES: Thoracolumbar scoliosis. Nondisplaced left ninth rib fracture with callus formation. RAD/Ribs Uni Min 3V w/PA Chest IMPRESSION: Nondisplaced left ninth rib fracture, possibly subacute. Mild left pleural effusion, decreased from prior. Electronically Signed: Roseanna Dozier MD at 13:17 EDT ,
[2022-05-19] MEDS: Ipratropium/Albuterol Sulfate 3 ML AMPUL.NEB INHALATION (13:02)
[2022-05-19 13:03] VITALS: PULSE 93; RESP 20
[2022-05-19 13:06] VITALS: O2SAT 99
[2022-05-19 13:56] VITALS: BP 146/90; PULSE 97; RESP 17; O2SAT 96
[2022-05-19] MEDS: oxyCODONE 5 MG Tablet PO (14:14)
[2022-05-19 14:17] VITALS: BP 152/99; PULSE 105; RESP 22; O2SAT 92
== END 2022-05-19 16:07 | disposition home or self-care (01) ==
PROVIDERS: Emergency Provider Emergency Medicine; PCP Nurse Practitioner Family; Visit Provider Emergency Medicine
DX: S22.32XA Fracture of one rib, left side, initial encounter for closed fracture (principal); J44.9 Chronic obstructive pulmonary disease, unspecified; K51.90 Ulcerative colitis, unspecified, without complications; J96.11 Chronic respiratory failure with hypoxia; F41.9 Anxiety disorder, unspecified; Z86.16 Personal history of COVID-19; F32.A Depression, unspecified; E66.9 Obesity, unspecified; Z99.81 Dependence on supplemental oxygen; M81.0 Age-related osteoporosis without current pathological fracture; Z79.899 Other long term (current) drug therapy; Z87.891 Personal history of nicotine dependence; X58.XXXA Exposure to other specified factors, initial encounter
CPT/HCPCS: 71101; 94640; 96374; 96376; 99284

== ENCOUNTER 2022-05-24 15:07 | Emergency (ER) | payer MEDICAID, SELFPAY ==
[2022-05-24 15:13] VITALS: BP 151/80; PULSE 98; RESP 18; TEMP 37.1; O2SAT 99; BMI 29.4
--- NOTE | 2022-05-24 15:28 | EDS_ITS ---
HPI History of Present Illness Chief Complaint: General Illness Narrative Narrative: 61-year-old female presenting for basic lab work and a drug screen. 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 EMS states that they had been there a few times over the last couple days. Apparently the patient broke her ribs after a fall the other day and has been on pain medicines, muscle relaxers. Patient is in palliative care currently. EMS reports that last night when they were called he was alert and oriented x3 and this mother did not transport her. They checked her pills and this seemed appropriate. PFSH [facility] Medical History Anxiety Asthma Cancer Carpal tunnel syndrome Chronic hypoxemic respiratory failure CML (chronic myelocytic leukemia) COPD (chronic obstructive pulmonary disease) COVID-19 Depression Emphysema of lung Fibromyalgia DREW (generalized anxiety disorder) Nicotine abuse Obesity (BMI 30.0-34.9) On home oxygen therapy Osteoporosis Poor compliance with medication Stage 3 severe COPD by GOLD classification Tachycardia Ulcerative colitis Home Medications albuterol sulfate 2.5 mg/3 mL (0.083 %) solution for nebulization 2.5 mg inhalation Q4H PRN PRN Sob &/Or Wheezing 10/18/18 [History Last Taken 02/14/22] diltiazem HCl 240 mg capsule,extended release 24 hr 240 mg PO DAILY heart 10/18/18 [History Last Taken 02/15/22] alprazolam 0.5 mg tablet 0.5 - 1 mg PO Q6H PRN Anxiety 11/03/20 [History Last Taken 02/17/22] furosemide 40 mg tablet 40 mg PO DAILY PRN Swelling 11/03/20 [History Last Taken Unknown] oxycodone 10 mg tablet 5 mg PO Q6H pain 11/03/20 [History Last Taken 02/17/22] sertraline 100 mg tablet 75 mg PO DAILY anxiety 11/03/20 [History Last Taken 02/14/22] azelastine-fluticasone 137 mcg-50 mcg/spray nasal spray (Dymista) 1 spray intranasal BID allergies 01/04/21 [History Last Taken Unknown] cyclobenzaprine 5 mg tablet 5 mg PO 4X/DAY PRN PRN Muscle Spasm 01/04/21 [History Last Taken 02/15/22] albuterol sulfate 90 mcg/actuation aerosol inhaler 2 puff inhalation Q4H PRN PRN Sob &/Or Wheezing #18 grams 06/16/21 [Rx Last Taken 02/14/22] fluticasone propionate 50 mcg/actuation nasal spray,suspension 2 spray intranasal DAILY sinus #50 mcg 06/16/21 [Rx Last Taken 02/15/22] potassium chloride 20 mEq tablet,extended release 20 meq PO BID supplement 01/05/22 [History Last Taken 02/14/22] budesonide-formoterol HFA 160 mcg-4.5 mcg/actuation aerosol inhaler (Symbicort) 2 puff inhalation BID sob 02/05/22 [History Last Taken Unknown] fexofenadine 180 mg tablet 180 mg PO DAILY allergies 02/05/22 [History Last Taken Unknown] imatinib 400 mg tablet 400 mg PO DAILY cancer 02/05/22 [History Last Taken 02/14/22] omeprazole 40 mg capsule,delayed release 40 mg PO DAILY gerd 02/05/22 [History Last Taken 02/14/22] tiotropium bromide 2.5 mcg/actuation mist for inhalation (Spiriva Respimat) 1 puff inhalation QHS copd 02/05/22 [History Last Taken 02/14/22] azelastine 137 mcg (0.1 %) nasal spray aerosol 1 spray intranasal BID allergies 02/17/22 [History Last Taken Unknown] prednisone 10 mg tablet 10 mg PO QDAY copd 02/17/22 [History Last Taken 02/13/22] buspirone 10 mg tablet 10 mg PO TID anxiety 04/27/22 [History Last Taken Unknown] Allergy/AdvReac Type Severity Reaction Status Date / Time Penicillins Allergy Severe Hives Verified 05/24/22 15:18 Sulfa (Sulfonamide Allergy Intermediate Hives Verified 05/24/22 15:18 Antibiotics) azithromycin AdvReac Severe Diarrhea Verified 05/24/22 15:18 codeine AdvReac Severe Vomiting Verified 05/24/22 15:18 ondansetron [From Zofran] AdvReac Severe Nausea Verified 05/24/22 15:18 ondansetron HCl AdvReac Severe Nausea Verified 05/24/22 15:18 [From Zofran (as hydrochloride)] pregabalin [From Lyrica] AdvReac Severe i can't Verified 05/24/22 15:18 see propoxyphene napsylate AdvReac Severe Vomiting Verified 05/24/22 15:18 [From Darvocet-N 100] Family History Mother Ovarian cancer Brother Heart disease Grandmother Heart disease Grandfather Heart disease Surgical History History of cardiac cath History of cranial surgery History of hemorrhoidectomy History of hysterectomy Social History Smoking Status: Former smoker Tobacco: How many years used: 40 second hand exposure: No alcohol intake: never substance use type: does not use caffeine: Yes Type: carbonated beverages and tea leila/voodoo: None seatbelt use: always do you feel safe at home: Yes ROS ROS ED Constitutional Constitutional ED: Denies chills or fever(s) Eyes Eyes: Denies change in vision ENT ENT ED: Denies rhinorrhea Cardiovascular Cardiovascular: Denies chest pain or palpitations Respiratory/Chest Respiratory/Chest: Reports other Details: Rib pain ; Denies cough Gastrointestinal Gastrointestinal: Denies abdominal pain or constipation Genitourinary Genitourinary ED: Denies dysuria or hematuria Musculoskeletal Musculoskeletal: Reports arthralgias Integumentary Denies abscess or Abrasions Neurologic Neurologic: Denies headache(s) Psychiatric Psychiatric: Denies anxiety or depression EXAM Physical Exam Const Vital Signs: 05/24/22 15:13 05/24/22 15:18 05/24/22 17:30 Temperature 98.8 F Temperature Source Oral Pulse Rate 98 115 H Respiratory Rate 18 Respiratory Effort Normal Non-Labored Blood Pressure 151/80 H Blood Pressure Mean 103 Pulse Ox 99 Oxygen Delivery Method Room Air Positive well nourished General Appearance ED: NAD; Negative for pallor HEENT Reports moist mucous membranes Eyes PERRL and EOMs intact bilaterally Resp normal respiratory effort and clear to auscultation bilaterally Auscultation: Negative for rales, rhonchi or wheezes Cardio regular rate and regular rhythm Neuro oriented x3 and CN's II-XII intact bilaterally Motor Exam: general weakness Skin General Skin Exam: Negative for jaundice or pallor MDM MDM MDM Narrative Medical decision making narrative: 61-year-old female presenting for evaluation. Apparently she has had some intermittent confusion. This is likely due to polypharmacy as the patient is on multiple new medications. I did check some basic labs and her CBC was unremarkable. Renal function is normal. Patient potassium was 2.8 and she was given 40 mill equivalents p.o. potassium. She states she does take this daily and this is a chronic problem. Patient's urinalysis negative for infection. Ur ine drug screen positive for benzodiazepines which is what she is prescribed. At this point with normal vital signs and a normal work-up I think she is safe for discharge home. Patient minimal to this. Impression: 1. Weakness 2. Hypokalemia Lab Data Attestation: I reviewed the patient's lab results. Labs: Laboratory Results - last 24 hr 05/24/22 05/24/22 05/24/22 15:36 15:36 15:52 WBC 10.4 RBC 3.32 L Hgb 10.5 L Hct 32.4 L MCV 97.6 MCH 31.6 MCHC 32.4 RDW Std Deviation 54.3 H RDW Coeff of Noe 15.1 H Plt Count 208 MPV 8.9 Immature Gran % (Auto) 0.500 Neut % (Auto) 72.2 H Lymph % (Auto) 15.5 L Armstrong % (Auto) 10.3 H Eos % (Auto) 1.2 Baso % (Auto) 0.3 Absolute Neuts (auto) 7.5 Absolute Lymphs (auto) 1.61 Nucleated RBC % 0 Sodium 142 Potassium 2.8 L Chloride 105 Carbon Dioxide 30.0 Anion Gap 7 BUN 8 Creatinine 0.96 Estim Creat Clear Calc 49.90 Est GFR (MDRD) Af Amer 76 Est GFR (MDRD) Non-Af 63 BUN/Creatinine Ratio 8.3 L Glucose 93 Calcium 8.4 L Urine Color Urine Clarity Urine pH Ur Specific [place] Urine Protein Urine Glucose (UA) Urine Ketones Urine Occult Blood Urine Nitrite Urine Bilirubin Urine Urobilinogen Ur Leukocyte Esterase Urine RBC Urine WBC Ur Squamous Epith Cells Urine Bacteria Urine Mucus Urine Opiates Screen NEGATIVE Urine Methadone Screen NEGATIVE Ur Barbiturates Screen NEGATIVE Ur Phencyclidine Scrn NEGATIVE Ur Amphetamines Screen NEGATIVE MDMA (Ecstasy) Screen NEGATIVE U Benzodiazepines Scrn POSITIVE H Urine Cocaine Screen NEGATIVE U Cannabinoids Screen NEGATIVE Ur Drug Screen Comment 08/17/22 15:52 WBC RBC Hgb Hct MCV MCH MCHC RDW Std Deviation RDW Coeff of Noe Plt Count MPV Immature Gran % (Auto) Neut % (Auto) Lymph % (Auto) Armstrong % (Auto) Eos % (Auto) Baso % (Auto) Absolute Neuts (auto) Absolute Lymphs (auto) Nucleated RBC % Sodium Potassium Chloride Carbon Dioxide Anion Gap BUN Creatinine Estim Creat Clear Calc Est GFR (MDRD) Af Amer Est GFR (MDRD) Non-Af BUN/Creatinine Ratio Glucose Calcium Urine Color Straw Urine Clarity Clear Urine pH 8.0 Ur Specific [place] 1.010 Urine Protein Negative Urine Glucose (UA) Normal Urine Ketones Negative Urine Occult Blood 25 H Urine Nitrite Negative Urine Bilirubin Negative Urine Urobilinogen Normal Ur Leukocyte Esterase Negative Urine RBC 0-5 SEEN Urine WBC 0 SEEN Ur Squamous Epith Cells 0-5 SEEN Urine Bacteria 1+ Urine Mucus 0 SEEN Urine Opiates Screen Urine Methadone Screen Ur Barbiturates Screen Ur Phencyclidine Scrn Ur Amphetamines Screen MDMA (Ecstasy) Screen U Benzodiazepines Scrn Urine Cocaine Screen U Cannabinoids Screen Ur Drug Screen Comment Discharge Plan Triage Chief Complaint: General Illness ED Provider: Orestes Mckinney Dx/Rx/DC Orders Instructions: ED Hypokalemia, ED Weakness (Uncertain Cause) Prescriptions: No Action buspirone 10 mg tablet 10 mg PO TID azelastine-fluticasone [Dymista] 137-50 mcg/spray spray,non-aerosol 1 spray INTRANASAL BID Rx Instructions: administer into each nostril cyclobenzaprine 5 mg tablet 5 mg PO 4X/DAY PRN PRN (Reason: Muscle Spasm) furosemide 40 mg tablet 40 mg PO DAILY PRN (Reason: Swelling) sertraline 100 mg tablet 75 mg PO DAILY oxycodone 10 mg tablet 5 mg PO Q6H albuterol sulfate 2.5 MG/3 ML solution for nebulization 2.5 mg INHALATION Q4H PRN PRN (Reason: Sob &/Or Wheezing) diltiazem HCl 240 MG capsule 240 mg PO DAILY alprazolam 0.5 mg tablet 0.5 - 1 mg PO Q6H PRN (Reason: Anxiety) potassium chloride 20 mEq Tablet Extended Release 20 meq PO BID fexofenadine 180 mg Tablet 180 mg PO DAILY omeprazole 40 mg Capsule,Delayed Release(Dr/Ec) 40 mg PO DAILY Spiriva Respimat 2.5 mcg/actuation Mist 1 puff INHALATION QHS imatinib 400 mg tablet 400 mg PO DAILY budesonide-formoterol [Symbicort] 160-4.5 mcg/actuation HFA aerosol inhaler 2 puff INHALATION BID prednisone 10 mg tablet 10 mg PO QDAY azelastine 137 mcg (0.1 %) aerosol,spray 1 spray INTRANASAL BID Rx Instructions: administer into each nostril albuterol sulfate 90 mcg/actuation HFA aerosol inhaler 2 puff INHALATION Q4H PRN PRN (Reason: Sob &/Or Wheezing) Qty: 18 6RF fluticasone propionate 50 mcg/actuation spray,suspension 2 spray INTRANASAL DAILY Qty: 50 3RF Primary Care Provider: Jennifer Coelho NP Referrals: Jennifer Coelho NP, DATA ANALYST-C [Primary Care Provider] - Disposition Disposition: Home, Self Care
[2022-05-24 15:41] LABS: Absolute Lymphocyte Count 1.61 X10^3/uL (0.83-4.51); Absolute Neutrophil Count 7.5 X10^3/uL (2.0-7.7); Basophil# 0.03 X10^3/uL; Basophil% 0.3 % (0-1); Eosinophil# 0.12 X10^3/uL; Eosinophils% 1.2 % (0-5); Hematocrit 32.4 % (37-47); Hemoglobin 10.5 g/dL (12.0-15.0); Lymphocyte # 1.61 X10^3/ul (0.83-4.51); Lymphocyte % 15.5 % (19-41); Mean Corp Hgb Conc 32.4 g/dL (32-36); Mean Corpuscular Hgb 31.6 pg (27.0-32.0); Mean Corpuscular Volume 97.6 fL (81-99); Mean Platelet Vol. 8.9 fl (6.2-12.0); Monocyte# 1.07 X10^3/uL; Monocyte% 10.3 % (0-10); NRBC Flagged by Analyzer 0 % (0-5); Neutrophil % 72.2 % (47-70); Platelet Count 208 K/mm3 (150-450); RBC Distribution Width CV 15.1 % (11.6-14.6); RBC Distribution Width SD 54.3 fl (35.1-43.9); Red Blood Count 3.32 M/mm3 (4.2-5.4); White Blood Count 10.4 K/mm3 (4.4-11.0)
[2022-05-24] MEDS: proMETHazine 25 MG Tablet PO (15:42)
[2022-05-24 15:55] LABS: Anion Gap 7 (5-15); BUN 8 mg/dL (7-18); BUN/Creat Ratio 8.3 RATIO (10-20); Calcium,Total 8.4 mg/dL (8.5-10.1); Chloride 105 mmol/L (98-107); Creatinine, Serum 0.96 mg/dL (0.55-1.02); EST Glomerular Filtration Rate 63 mL/min (>60); Est Glom Filt Rate - Afr Amer 76 mL/min (>60); Glucose 93 mg/dL (74-106); Potassium 2.8 mmol/L (3.5-5.1); Sodium Level 142 mmol/L (136-145)
[2022-05-24 16:01] LABS: Mucous, Urine 0 SEEN /hpf (<or=2+); White Blood Cells 0 SEEN /hpf (0-5)
[2022-05-24 16:17] LABS: Color, Urine Straw (Yellow); Glucose, Dipstick Normal (Normal); Ketone-Dipstick Negative (Negative); Leukocyte Esterase-Dipstick Negative /ul (Negative); Nitrite-Dipstick Negative (Negative); Occult Blood-Urine 25 /ul (Negative); Protein-Dipstick Negative (Negative); Urine Bilirubin Dipstick Negative (Negative); Urine Clarity Clear (Clear); Urine Urobilinogen Normal (Normal)
[2022-05-24] MEDS: Potassium Chloride Oral Soln 20 MEQ/15 ML UDC 40 MEQ PO (16:22)
[2022-05-24 16:30] LABS: Amphetamine Urine VISTA NEGATIVE (<1000 ng/mL); Barbiturate Urine VISTA NEGATIVE (< 200 ng/mL); Benzodiazepine Urine VISTA POSITIVE (< 200 ng/mL); Cocaine Urine VISTA NEGATIVE (< 300 ng/mL); Ecstacy Urine VISTA NEGATIVE (< 500 ng/mL); Methadone Urine VISTA NEGATIVE (< 300 ng/mL); PCP Urine VISTA NEGATIVE (< 25 ng/mL); THC Urine VISTA NEGATIVE (< 50 ng/mL); Vista UDS pH Range 7
[2022-05-24 16:38] LABS: Red Blood Cells-Urine 0-5 SEEN /hpf (0-5); Squamous Epithelial Cells - UA 0-5 SEEN /hpf (5-10)
[2022-05-24 16:41] LABS: Bacteria 1+ /hpf (None Seen)
[2022-05-24 17:30] VITALS: PULSE 115
[2022-05-24 17:43] VITALS: BP 145/105; PULSE 105; RESP 18; O2SAT 94
--- NOTE | 2022-05-24 18:03 | ED.RN ---
CALLED FRIEND JACQUE FOR UPDATE AND DISCHARGE. SHE STATED SHE WILL BE UNABLE TO PICK HER UP AT 9 PM AT THE LATEST. INFORMED BY FRIEND THAT [facility] [employer] DRIVES PT AROUND AND TO CONTACT HER. CONTACTED [employer] [employer] FOR UPDATE AND DISCHARGE. [facility] STATED SHE CANNOT PICK HER UP AND SHE WILL HAVE TO WAIT. PT INFORMED, DINNER ORDERED.
[2022-05-24 19:03] VITALS: BP 147/99; PULSE 113; RESP 20; O2SAT 94
--- NOTE | 2022-05-24 19:24 | ED.RN ---
PT STATING RIB PAIN 07/17. MD NOTIFIED AND GIVEN VERBAL ORDER FOR HOME DOSE OF OXYCODONE 5MG PO. READ BACK THE SAME.
[2022-05-24] MEDS: oxyCODONE 5 MG Tablet PO (19:27)
[2022-05-24 21:13] VITALS: BP 161/104; PULSE 102; O2SAT 97
--- NOTE | 2022-05-24 21:14 | ED.RN ---
CORY SANTILLAN CALLED FOR UPDATE ON TRANSPORT. 30 MINUTES OUT.
== END 2022-05-24 21:51 | disposition home or self-care (01) ==
PROVIDERS: Emergency Provider Student in an Organized Health Care Education/Training Program; PCP Nurse Practitioner Family; Visit Provider Student in an Organized Health Care Education/Training Program
DX: E87.6 Hypokalemia (principal); J44.9 Chronic obstructive pulmonary disease, unspecified; K51.90 Ulcerative colitis, unspecified, without complications; J96.11 Chronic respiratory failure with hypoxia; Z87.891 Personal history of nicotine dependence; F32.A Depression, unspecified; M79.7 Fibromyalgia; M81.0 Age-related osteoporosis without current pathological fracture; Z99.81 Dependence on supplemental oxygen; Z86.16 Personal history of COVID-19; F41.9 Anxiety disorder, unspecified; Z85.6 Personal history of leukemia; E66.9 Obesity, unspecified; Z79.899 Other long term (current) drug therapy; Z68.29 Body mass index [BMI] 29.0-29.9, adult
CPT/HCPCS: 80048; 80307; 81001; 85025; 99285; A4216